=== PATIENT | female | born 1990 | race Caucasian/White ===

== ENCOUNTER 2020-07-23 18:13 | Emergency (ER) | payer MEDICAID ==
[2020-07-23 18:53] VITALS: O2SAT 99
[2020-07-23] MEDS ORDERED: MOTRIN 600 MG PO ONE (19:37)
[2020-07-23] MEDS ORDERED: BACTRIM DS TABLET PO STA (19:37)
--- NOTE | 2020-07-23 19:39 | ERPHSYRPT ---
- History of Present Illness Time Seen by Provider: 07/23/20 19:17 Source: patient Patient Subjective Stated Complaint: abscess Triage Nursing Assessment: pt to ED c/o approx 1 cm abscess to abd just to the R of umbilicus. pt states it was not draining but she was picking it and it began to drain. rates 10/10 pain and very tender to touch. red and warm to touch. pt denies knowing of any bug bites but states it is possible. Physician History: 29 years old female presented in the ER with chief complaint of swelling redness right to umbilicus the last 3 days with progressive worsening in swelling and pain minimal discharge upon squeezing. Denies any fever or chills. Timing/Duration: day(s) (3), gradual onset, worse Quality: itchy, painful Severity: moderate Location: other (Abdominal wall right right low side of umbilicus) Possible Causes: no cause identified Associated Symptoms: denies symptoms Allergies/Adverse Reactions: No Known Drug Allergies Allergy (Unverified 07/23/20 18:53) Hx Tetanus, Diphtheria Vaccination/Date Given: No Hx Influenza Vaccination/Date Given: No Hx Pneumococcal Vaccination/Date Given: No Immunizations Up to Date: No Travel Risk - International Travel Have you traveled outside of the country in past 3 weeks: No - Coronavirus Screening Are you exhibiting any of the following symptoms?: No Close contact with a COVID-19 positive Pt in past 14-21 Days: No - Review of Systems Constitutional: No Symptoms Eyes: No Symptoms Ears, Nose, & Throat: No Symptoms Respiratory: No Symptoms Cardiac: No Symptoms Abdominal/Gastrointestinal: No Symptoms Genitourinary Symptoms: No Symptoms Musculoskeletal: No Symptoms Skin: Induration, Rash, Skin Lesions Neurological: No Symptoms Psychological: No Symptoms Endocrine: No Symptoms Hematologic/Lymphatic: No Symptoms Immunological/Allergic: No Symptoms - Past Medical History Pertinent Past Medical History: Yes Psycho-Social History: Anxiety, Bipolar, Depression, Other Other Medical History: mulitpersonality disorder - Past Surgical History Past Surgical History: No - Social History Smoking Status: Former smoker Exposure to second hand smoke: No Drug Use: none Patient Lives Alone: No - Female History Hx Now: No - Nursing Vital Signs Nursing Vital Signs: Initial Vital Signs Temperature 98.5 F 07/23/20 18:45 Pulse Rate 98 H 07/23/20 18:45 Respiratory Rate 17 07/23/20 18:45 Blood Pressure 127/90 07/23/20 18:45 O2 Sat by Pulse Oximetry 99 07/23/20 18:45 Pain Scale Pain Intensity 4 - Physical Exam General Appearance: no apparent distress Eye Exam: eyes nml inspection Ears, Nose, Throat Exam: pharynx normal Neck Exam: supple, full range of motion Respiratory Exam: normal breath sounds, lungs clear Cardiovascular Exam: regular rate/rhythm, normal heart sounds Gastrointestinal/Abdomen Exam: soft, normal bowel sounds, tenderness (Tenderness around right lower umbilical area with induration 2 x 2 cm with central punctum but no fluctuation. Warm to touch.) Extremity Exam: normal inspection Neurologic Exam: alert, oriented x 3, cooperative Skin Exam: normal color SpO2 Interpretation: normal SpO2: 99 O2 Delivery: Room Air Ordered Tests: Medication Summary Discontinued Medications Generic Name Dose Route Start Last Admin Trade Name Freq PRN Reason Stop Dose Admin Ibuprofen 600 mg 07/23/20 19:37 07/23/20 19:44 Motrin 600 Mg PO 07/23/20 19:38 600 mg STAT ONE Administration Ibuprofen Confirm 07/23/20 19:42 Motrin 600 Mg Administered 07/23/20 19:43 Dose 600 mg .ROUTE .STK-MED ONE Trimethoprim/Sulfamethoxazole 1 tab 07/23/20 19:37 07/23/20 19:43 Bactrim Ds Tablet PO 07/23/20 19:38 1 tab STAT STA Administration Trimethoprim/Sulfamethoxazole Confirm 07/23/20 19:42 Bactrim Ds Tablet Administered 07/23/20 19:43 Dose 1 tab PO .STK-MED ONE - Progress Progress: unchanged Progress Note: 07/23/20 believe patient is developing cellulitis abscess of anterior abdominal wall with no fluctuation at present, do not think needs I&D. Will start on Bactrim and NSAIDs for pain as needed. Outpatient follow-up. Counseled pt/family regarding: diagnosis, need for follow-up - Departure Departure Disposition: Home Clinical Impression: Abdominal wall abscess Condition: Stable Critical Care Time: No Referrals: DOCTOR,NO FAMILY [Primary Care Provider] - RAMIRO CLIFTON DO [ACTIVE STAFF] - Follow Up with PCP/3 days Instructions: MRSA (DC), Wound Infection Additional Instructions: Use Tylenol/ibuprofen as needed for pain. Apply warm compresses. Continue with antibiotics. Follow-up with primary care physician for reevaluation. Return to ER for increasing pain swelling redness discharge or if develop fever or chills. Prescriptions: Ibuprofen 600 mg PO Q6HPRN PRN 10 Days #20 tablet PRN Reason: Pain Smz/Tmp Ds Tablet [Bactrim Ds Tablet] 1 udtab PO BID #14 tablet
[2020-07-23] MEDS ORDERED: MOTRIN 600 MG ONE (19:42)
[2020-07-23] MEDS ORDERED: BACTRIM DS TABLET PO ONE (19:42)
[2020-07-23 19:53] VITALS: BP 112/81; PULSE 82
== END 2020-07-23 19:54 | disposition home or self-care (01) ==
LOC: ED 18:13
DX: L02.211 Cutaneous abscess of abdominal wall (principal)
CPT/HCPCS: 99283; A9270-GY

== ENCOUNTER 2020-09-24 04:04 | Emergency (ER) | payer MEDICAID, OTHER ==
[2020-09-24 04:28] LABS: Appearance SLIGHTLY CLOUDY (CLEAR); Bilirubin NEGATIVE (NEGATIVE); Blood NEGATIVE Ery/ul (0-5); Epithelial Cells RARE /HPF (FEW); Glucose NEGATIVE (NEGATIVE); Ketones NEGATIVE (NEGATIVE); Leukocyte Esterase SMALL (NEGATIVE); Mucus SLIGHT /HPF (NEGATIVE); Nitrite NEGATIVE (NEGATIVE); Protein,Urine Dip NEGATIVE (Negative); Urobilinogen NEGATIVE mg/dL (0-1); WBC 0-2 /HPF (0-5)
[2020-09-24] MEDS ORDERED: KEFLEX 500 MG ONE (04:43)
--- NOTE | 2020-09-24 04:44 | ERPHSYRPT ---
- History of Present Illness Time Seen by Provider: 09/24/20 04:20 Source: patient Exam Limitations: no limitations Patient Subjective Stated Complaint: pt states "I began to have rt lower back pain." Triage Nursing Assessment: pt ambulated into the er; pt is axo x3; c/o rt flank pain; states 7/10 pain to rt flank pain; hyperactive bowel sounds in all quads; no tenderness present to abd; tenderness with palpation; urine cloudy and straw color; pt states that pain started last night and did not want to wait for the doctor today; clear lung sounds in all lobes; clear heart tones; vitals wnl; pt states that she wants a work note because she has to be at work at 5 Physician History: This is a 29-year-old white female who complains of 1 day history of flank pain with dysuria. She denies fever she denies nausea vomiting diarrhea. Her symptoms are similar to prior urinary tract infections that she has had in the past. Timing/Duration: yesterday Activites at Onset: none Quality: aching Onset Location: right flank Pain Radiation: right flank Severity of Pain-Max: mild Severity of Pain-Current: mild Sexual intercourse history: non-contributory Modifying Factors: Improves With: nothing Associated Symptoms: dysuria Allergies/Adverse Reactions: No Known Drug Allergies Allergy (Unverified 07/23/20 18:53) Hx Tetanus, Diphtheria Vaccination/Date Given: Yes Hx Influenza Vaccination/Date Given: No Hx Pneumococcal Vaccination/Date Given: No Travel Risk - International Travel Have you traveled outside of the country in past 3 weeks: No - Coronavirus Screening Are you exhibiting any of the following symptoms?: No Close contact with a COVID-19 positive Pt in past 14-21 Days: No - Review of Systems Constitutional: No Symptoms Eyes: No Symptoms Ears, Nose, & Throat: No Symptoms Respiratory: No Symptoms Cardiac: No Symptoms Abdominal/Gastrointestinal: No Symptoms Genitourinary Symptoms: Dysuria, Flank Pain Musculoskeletal: No Symptoms Skin: No Symptoms Neurological: No Symptoms Psychological: No Symptoms Endocrine: No Symptoms Hematologic/Lymphatic: No Symptoms Immunological/Allergic: No Symptoms All Other Systems: Reviewed and Negative - Past Medical History Pertinent Past Medical History: Yes Neurological History: No Pertinent History ENT History: No Pertinent History Cardiac History: No Pertinent History Respiratory History: No Pertinent History Endocrine Medical History: No Pertinent History Musculoskeletal History: No Pertinent History GI Medical History: No Pertinent History History: No Pertinent History Psycho-Social History: Anxiety, Bipolar, Depression, Other Other Medical History: mulitpersonality disorder - Past Surgical History Past Surgical History: No Neuro Surgical History: No Pertinent History Cardiac: No Pertinent History Respiratory: No Pertinent History Gastrointestinal: No Pertinent History Genitourinary: No Pertinent History Musculoskeletal: No Pertinent History Female Surgical History: No Pertinent History - Social History Smoking Status: Former smoker Exposure to second hand smoke: No Drug Use: none Patient Lives Alone: No - Female History Hx Last Menstrual Period: 08/29/20 Hx Now: No - Nursing Vital Signs Nursing Vital Signs: Initial Vital Signs Temperature 98.9 F 09/24/20 04:10 Pulse Rate 97 H 09/24/20 04:10 Respiratory Rate 14 09/24/20 04:10 Blood Pressure 128/80 09/24/20 04:10 O2 Sat by Pulse Oximetry 98 09/24/20 04:10 Pain Scale Pain Intensity 7 - Physical Exam General Appearance: no apparent distress, alert, anxiety Eye Exam: PERRL/EOMI, eyes nml inspection Ears, Nose, Throat Exam: normal ENT inspection, moist mucous membranes Neck Exam: normal inspection, non-tender, supple, full range of motion Respiratory Exam: airway intact, No chest tenderness, No respiratory distress Cardiovascular Exam: regular rate/rhythm, normal heart sounds, normal peripheral pulses Gastrointestinal/Abdomen Exam: soft, normal bowel sounds, No tenderness Pelvic Exam: not done Rectal Exam: not done Back Exam: normal inspection, normal range of motion, CVA tenderness (Right), No vertebral tenderness Extremity Exam: normal inspection, normal range of motion, pelvis stable Neurologic Exam: alert, oriented x 3, cooperative, intravenous therapy nurse II-XII nml as tested, normal mood/affect, nml cerebellar function, nml station & gait, sensation nml Skin Exam: normal color, warm, dry Lymphatic Exam: No adenopathy SpO2 Interpretation: normal SpO2: 98 O2 Delivery: Room Air - Course Nursing assessment & vital signs reviewed: Yes Ordered Tests: Active Orders 24 hr Category Date Time Status HCG,QUALITATIVE URINE Stat Lab 09/24/20 04:18 Completed UA W/RFX UR CULTURE Stat Lab 09/24/20 04:18 Completed Lab/Rad Data: Laboratory Results 09/24/20 09/24/20 Range/Units 04:18 04:18 Urine Color YELLOW (YELLOW) Urine Appearance SLIGHTLY CLOUDY (CLEAR) Urine pH 6.0 (5-6) Ur Specific [place] 1.020 (1.005-1.025) Urine Protein NEGATIVE (Negative) Urine Ketones NEGATIVE (NEGATIVE) Urine Blood NEGATIVE (0-5) Sammy/ul Urine Nitrite NEGATIVE (NEGATIVE) Urine Bilirubin NEGATIVE (NEGATIVE) Urine Urobilinogen NEGATIVE (0-1) mg/dL Ur Leukocyte Esterase SMALL (NEGATIVE) Urine WBC (Auto) 0-2 (0-5) /HPF Urine RBC (Auto) NONE (0-2) /HPF U Epithel Cells (Auto) RARE (FEW) /HPF Urine Bacteria (Auto) NONE (NEGATIVE) /HPF Urine Mucus (Auto) SLIGHT (NEGATIVE) /HPF Urine Culture Reflexed NO (NO) Urine Glucose NEGATIVE (NEGATIVE) mg/dL Urine HCG, Qual NEGATIVE (Negative) - Progress Progress: unchanged Air Movement: good Counseled pt/family regarding: lab results, diagnosis, need for follow-up - Departure Departure Disposition: Home Clinical Impression: UTI (urinary tract infection) Condition: Stable Critical Care Time: No Referrals: DOCTOR,NO FAMILY [Primary Care Provider] - Additional Instructions: Drink plenty of fluids. Use Tylenol and ibuprofen for pain control. Follow-up with your primary care physician for persistent symptoms. Forms: Work/School Release Form Prescriptions: Cephalexin Mh 500 mg [Keflex 500 mg] 500 mg PO TID #21 capsule Phenazopyridine HCl 200 mg [Pyridium 200 mg] 200 mg PO TID #6 tablet
[2020-09-24] MEDS ORDERED: KEFLEX 500 MG PO ONE (04:45)
[2020-09-24 04:54] VITALS: BP 120/78; PULSE 88; O2SAT 99
== END 2020-09-24 04:54 | disposition home or self-care (01) ==
LOC: ED 04:04
DX: N39.0 Urinary tract infection, site not specified (principal)
CPT/HCPCS: 81001; 84703; 99283; A9270-GY

== ENCOUNTER 2021-12-26 15:04 | Emergency (ER) | payer OTHER ==
--- NOTE | 2021-12-26 16:04 | ERPHSYRPT ---
- History of Present Illness Time Seen by Provider: 12/26/21 15:30 Source: patient Exam Limitations: no limitations Patient Subjective Stated Complaint: Pt states "I have pain on the top of my right foot and I was walking down the stairs and my right leg gave out and I twi sted my left ankle and it hurts." Triage Nursing Assessment: Pt presented alert and oriented X 3, skin pwd Pt ambulates with an upright steady gait, able to speak in clear full sentences pt in no apprent respiratory distress. no swelling or bruising noted. Physician History: Patient is a 31-year-old female presents to emergency department for evaluation of right foot and left ankle pain. No blunt trauma. Patient states that her right foot hurt likely due to prolonged dorsiflexion while planting salmon. Patient was descending a flight of stairs when her left ankle inverted. Pain described as an ache that is localized. No radiation. Pain worse with movement and palpation. Pain improved with rest. No other injuries reported. Symptoms are mild to moderate in intensity. Patient voices no other complaints or concerns at this time. Method of Injury: twisted Occurred: yesterday Quality: constant Severity of Pain-Max: moderate Severity of Pain-Current: mild Lower Extremities Pain: foot: right, ankle: left Modifying Factors: Improves With: movement Associated Symptoms: none Allergies/Adverse Reactions: No Known Drug Allergies Allergy (Verified 12/26/21 15:19) Home Medications: Quetiapine Fumarate 100 mg [Seroquel 100 MG] 100 mg PO DAILY 12/26/21 [History] Sertraline HCl 50 mg [Zoloft 50 mg Tablet] 50 mg PO DAILY 12/26/21 [History] Hx Tetanus, Diphtheria Vaccination/Date Given: Yes Hx Influenza Vaccination/Date Given: No Hx Pneumococcal Vaccination/Date Given: No Immunizations Up to Date: Yes Travel Risk - International Travel Have you traveled outside of the country in past 3 weeks: No - Coronavirus Screening Are you exhibiting any of the following symptoms?: No Close contact with a COVID-19 positive Pt in past 14-21 Days: No - Vaccine Status Have you recieved a Covid-19 vaccination: Yes Spray Gun Sizer: Unknown - Vaccination Dates Dates if Unknown: 12/2020 - Review of Systems Constitutional: No Symptoms, No Fever, No Chills Eyes: No Symptoms Ears, Nose, & Throat: No Symptoms Respiratory: No Symptoms, No Cough, No Dyspnea Cardiac: No Symptoms, No Chest Pain, No Edema, No Syncope Abdominal/Gastrointestinal: No Symptoms, No Abdominal Pain, No Nausea, No Vomiting, No Diarrhea Genitourinary Symptoms: No Symptoms, No Dysuria Musculoskeletal: No Symptoms, No Back Pain, No Neck Pain Skin: No Symptoms, No Rash Neurological: No Symptoms, No Dizziness, No Focal Weakness, No Sensory Changes Psychological: No Symptoms Endocrine: No Symptoms Hematologic/Lymphatic: No Symptoms Immunological/Allergic: No Symptoms All Other Systems: Reviewed and Negative - Past Medical History Pertinent Past Medical History: Yes Neurological History: No Pertinent History ENT History: No Pertinent History Cardiac History: No Pertinent History Respiratory History: No Pertinent History Endocrine Medical History: No Pertinent History Musculoskeletal History: No Pertinent History GI Medical History: No Pertinent History History: No Pertinent History Psycho-Social History: Anxiety, Bipolar, Depression, Other Other Medical History: mulitpersonality disorder - Past Surgical History Past Surgical History: No Neuro Surgical History: No Pertinent History Cardiac: No Pertinent History Respiratory: No Pertinent History Gastrointestinal: No Pertinent History Genitourinary: No Pertinent History Musculoskeletal: No Pertinent History Female Surgical History: No Pertinent History - Social History Smoking Status: Current every day smoker How long have you smoked: years Exposure to second hand smoke: Yes Drug Use: none Patient Lives Alone: No - Female History Hx Last Menstrual Period: 12/17/2021 Hx Now: No - Nursing Vital Signs Nursing Vital Signs: Initial Vital Signs Temperature 97.8 F 12/26/21 15:12 Pulse Rate 125 H 12/26/21 15:12 Respiratory Rate 20 12/26/21 15:12 Blood Pressure 133/90 12/26/21 15:12 O2 Sat by Pulse Oximetry 97 12/26/21 15:12 Pain Scale Pain Intensity 7 - Physical Exam General Appearance: alert Eyes, Ears, Nose, Throat Exam: moist mucous membranes Neck Exam: normal inspection, non-tender, supple, full range of motion Cardiovascular/Respiratory Exam: chest non-tender, normal breath sounds, regular rate/rhythm, no respiratory distress Gastrointestinal/Abdominal Exam: non-tender, soft, guarding Back Exam: normal inspection, normal range of motion, No CVA tenderness, No vertebral tenderness Hips Exam: bilateral: non-tender, normal inspection, normal range of motion, no evidence of injury Legs Exam: bilateral leg: non-tender, normal inspection, normal range of motion, no evidence of injury Knees Exam: bilateral knee: non-tender, normal inspection, normal range of motion, no evidence of injury Ankle Exam: right ankle: non-tender, normal inspection, normal range of motion, no evidence of injury, left ankle: swelling (Mild swelling lateral aspect left ankle. Extremities neurovascular intact distally. PT DP pulse palpable. Foot is pink warm well perfused) Foot Exam: right foot: pain, soft tissue tenderness (Tenderness palpation dorsum of right foot. Right foot neurovascular tact distally. Compartments are soft. Cap refill less than 2 seconds. PT DP pulse palpable.), left foot: non- tender, normal inspection, normal range of motion, no evidence of injury Neuro/Tendon Exam: normal sensation, normal motor functions Mental Status Exam: alert, oriented x 3, cooperative Skin Exam: normal color, warm, dry SpO2 Interpretation: normal SpO2: 97 O2 Delivery: Room Air - Course Nursing assessment & vital signs reviewed: Yes - Radiology Exams Foot X-ray Interpretation: Interpreted by me Ankle X-ray Interpretation: Interpreted by me (No soft tissue abnormalities. No fracture or dislocation) Ordered Tests: Active Orders 24 hr Category Date Time Status ANKLE (3 VIEWS) Stat Exams 12/26/21 Taken FOOT (MINIMUM 3 VIEWS) Stat Exams 12/26/21 Taken Medication Summary Discontinued Medications Generic Name Dose Route Start Last Admin Trade Name Freq PRN Reason Stop Dose Admin Ketorolac Tromethamine 30 mg 12/26/21 16:02 Ketorolac Tromethamine 30 Mg/Ml Inj IM 12/26/21 16:03 STAT ONE - Progress Progress: improved Progress Note: Patient reassessed. Pain improved. Vital stable. X-rays negative for fracture dislocation. Patient received Toradol for pain. Patient declined crutches. No indication for further work-up at this time. Will discharge home. Patient agrees to follow-up with primary care doctor within 48 hours for evaluation. Portions of this note were created with voice recognition technology. There may be grammatical, spelling, punctuation or sound alike errors 12/26/21 16:12 Counseled pt/family regarding: diagnosis, need for follow-up, rad results - Departure Departure Disposition: Home Clinical Impression: Left ankle sprain, Right foot sprain Condition: Stable Critical Care Time: No Referrals: TONJA SKY [Primary Care Provider] - Follow up/PCP as directed Additional Instructions: Discharge/Care Plan GOPAL POSADA was seen on 12/26/21 in the Emergency Room. The patient was counseled regarding Diagnosis,Lab results, Imaging studies, need for follow up and when to return to the Emergency Room. Prescriptions given: Discharge Note I have spoken with the patient and/or caregivers. I have explained the patient's condition, diagnosis and treatment plan based on the information available to me at this time. I have answered the patient's and/or caregiver's questions and addressed any concerns. The patient and/or caregivers have as good understanding of the patient's diagnosis, condition and treatment plan as can be expected at this point. The vital signs have been stable. The patient's condition is stable and appropriate for discharge from the emergency department. The patient will pursue further outpatient evaluation with the primary care physician or other designated or consulting physician as outlined in the discharge instructions. The patient and/or caregivers are agreeable to this plan of care and follow-up instructions have been explained in detail. The patient and/or caregivers have received these instruction. The patient/and or caregivers are aware that any significant change in condition or worsening of symptoms should prompt an immediate return to this or the closest emergency department or call 911.
[2021-12-26] MEDS ORDERED: TORAdol 30 mg Injection ONE (16:09)
[2021-12-26] MEDS: TORAdol 30 mg Injection IM ONE (16:14)
--- NOTE | 2021-12-26 16:26 | XRAY ---
Indication: Pain. No known injury. Comparison: None 3 view left ankle demonstrates tiny plantar heel spur, mild lateral soft tissue swelling, and external electronic device. No other bony, articular, or soft tissue abnormalities.
--- NOTE | 2021-12-26 16:28 | XRAY ---
Indication: Pain. No known injury. Comparison: None 3 nonweightbearing views right foot obtained. No bony, articular, or soft tissue abnormalities.
[2021-12-26 16:30] VITALS: BP 139/85; PULSE 65; O2SAT 98
== END 2021-12-26 16:27 | disposition home or self-care (01) ==
LOC: ED 15:04
DX: S93.402A Sprain of unspecified ligament of left ankle, initial encounter (principal); W10.9XXA Fall (on) (from) unspecified stairs and steps, initial encounter; S93.601A Unspecified sprain of right foot, initial encounter; X50.1XXA Overexertion from prolonged static or awkward postures, initial encounter; Y93.H2 Activity, gardening and landscaping; Z72.0 Tobacco use
CPT/HCPCS: 73610; 73630; 96372; 99284; J1885

== ENCOUNTER 2022-08-04 15:02 | Emergency (ER) | payer OTHER ==
[2022-08-04] MEDS ORDERED: XYLOCAINE 1% HCL 20 ML MDV ONE (15:12)
[2022-08-04 15:17] VITALS: O2SAT 98
--- NOTE | 2022-08-04 15:50 | ERPHSYRPT ---
- History of Present Illness Time Seen by Provider: 08/04/22 15:22 Source: patient Exam Limitations: no limitations Patient Subjective Stated Complaint: Laceration Triage Nursing Assessment: Patient ambulated back to ED and transferred self to bed. Patient A+O X 3. Patient's skin pink, warm and dry. Patient complains of laceration to posterior side of left hand. Patient states she got locked out of her home and attempted to get in and broke glass causing a laceration. Patient has 3cm X 1 cm noted to posterior side of left hand. Patient complains of pain 05/09. Physician History: 31 years old left-handed dominant female up-to-date with tetanus was locked out of her own house, tried to get in and broke a piece of glass with laceration left hand dorsum. Patient saw blood gushing out of her hand and got vasovagal and syncopal episode. She denies any focal numbness tingling or weakness. She is complaining of pain in the area of laceration. No difficulty movements of finger. Timing/Duration: hour(s) (05), sudden, improved Quality: painful Severity: mild, moderate Location: hands Associated Symptoms: denies symptoms Allergies/Adverse Reactions: No Known Drug Allergies Allergy (Verified 08/04/22 15:09) Home Medications: Quetiapine Fumarate 100 mg [Seroquel 100 MG] 100 mg PO DAILY 12/26/21 [History] Sertraline HCl 50 mg [Zoloft 50 mg Tablet] 50 mg PO DAILY 12/26/21 [History] Hx Tetanus, Diphtheria Vaccination/Date Given: Yes Hx Influenza Vaccination/Date Given: No Hx Pneumococcal Vaccination/Date Given: No Immunizations Up to Date: Yes Travel Risk - International Travel Have you traveled outside of the country in past 3 weeks: No - Coronavirus Screening Are you exhibiting any of the following symptoms?: No Close contact with a COVID-19 positive Pt in past 14-21 Days: No - Vaccine Status Have you recieved a Covid-19 vaccination: Yes 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 - Vaccination Dates Dates if Unknown: 12/2020 - Review of Systems Constitutional: No Symptoms Eyes: No Symptoms Ears, Nose, & Throat: No Symptoms Respiratory: No Symptoms Cardiac: No Symptoms Abdominal/Gastrointestinal: No Symptoms Genitourinary Symptoms: No Symptoms Musculoskeletal: Injury Skin: Skin Lesions Neurological: No Symptoms Psychological: No Symptoms Endocrine: No Symptoms Hematologic/Lymphatic: No Symptoms Immunological/Allergic: No Symptoms - Past Medical History Pertinent Past Medical History: Yes Neurological History: No Pertinent History ENT History: No Pertinent History Cardiac History: No Pertinent History Respiratory History: No Pertinent History Endocrine Medical History: No Pertinent History Musculoskeletal History: No Pertinent History GI Medical History: No Pertinent History History: No Pertinent History Psycho-Social History: Anxiety, Bipolar, Depression, Other Other Medical History: mulitpersonality disorder - Past Surgical History Past Surgical History: No Neuro Surgical History: No Pertinent History Cardiac: No Pertinent History Respiratory: No Pertinent History Gastrointestinal: No Pertinent History Genitourinary: No Pertinent History Musculoskeletal: No Pertinent History Female Surgical History: No Pertinent History - Social History Smoking Status: Current every day smoker How long have you smoked: years Exposure to second hand smoke: Yes Drug Use: none Patient Lives Alone: No - Female History Hx Last Menstrual Period: July Hx Now: No - Nursing Vital Signs Nursing Vital Signs: Initial Vital Signs Temperature 98.0 F 08/04/22 15:10 Pulse Rate 127 H 08/04/22 15:10 Respiratory Rate 18 08/04/22 15:10 Blood Pressure 132/106 08/04/22 15:10 O2 Sat by Pulse Oximetry 98 08/04/22 15:10 Pain Scale Pain Intensity 0 - Physical Exam General Appearance: no apparent distress, alert Eye Exam: PERRL/EOMI, eyes nml inspection Ears, Nose, Throat Exam: normal ENT inspection, pharynx normal Neck Exam: normal inspection, supple, full range of motion Respiratory Exam: normal breath sounds, lungs clear Cardiovascular Exam: normal heart sounds, tachycardia Extremity Exam: lacerations (Superficial laceration of the dorsum of hand measuring 2.5 cm, 1 cm with no active spurting, minimal oozing from a big laceration. 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, normal mood/affect Skin Exam: normal color SpO2 Interpretation: normal SpO2: 98 O2 Delivery: Room Air Procedures - Laceration/Wound Repair Left Hand Time of Procedure: 15:30 Wound Location: Left Wound Length (cm): 3.5 Wound's Depth, Shape: superficial, irregular Wound Explored: clean Irrigated: Yes Hibiclens Prep: Yes Anesthesia: 1% Lidocaine Volume Anesthetic (ccs): 2 Wound Repaired With: sutures Suture Size/Type: 4-0 Number of Sutures: 9 Layer Closure?: No Sterile Dressing Applied?: Yes Splint Applied?: No Ordered Tests: Medication Summary Discontinued Medications Generic Name Dose Route Start Last Admin Trade Name Lu PRN Reason Stop Dose Admin Lidocaine HCl Confirm 08/04/22 15:12 Lidocaine Hcl 1% 20 Ml Mdv 20 Ml Ml Administered 08/04/22 15:13 Dose 1 ml .ROUTE .P2i ONE - Progress Progress: improved Progress Note: 08/04/22 15:48 Laceration is repaired. Recommended avoiding exertional work. Outpatient follow-up. Counseled pt/family regarding: diagnosis, need for follow-up - Departure Departure Disposition: Home Clinical Impression: Hand laceration Condition: Stable Critical Care Time: No Referrals: TONJA SKY [Primary Care Provider] - Follow Up with PCP/3 days Instructions: Laceration Repair With Stitches (DC) Additional Instructions: Take Tylenol/ibuprofen as needed for pain. Avoid exertional activity with left hand. Keep it clean. Follow-up with primary care for reevaluation. Suture removal in 10 to 14 days. Return to ER for worsening pain, difficulty movements of fingers, swelling, redness, discharge, fever chills etc.
[2022-08-04 15:55] VITALS: BP 133/103; PULSE 110
== END 2022-08-04 15:57 | disposition home or self-care (01) ==
LOC: ED 15:02
DX: S61.412A Laceration without foreign body of left hand, initial encounter (principal); W25.XXXA Contact with sharp glass, initial encounter; Y92.007 Garden or yard of unspecified non-institutional (private) residence as the place of occurrence of the external cause; R55 Syncope and collapse; Z72.0 Tobacco use; Z79.899 Other long term (current) drug therapy
CPT/HCPCS: 12002; 99281

== ENCOUNTER 2023-03-09 00:29 | Emergency (ER) | payer OTHER ==
--- NOTE | 2023-03-09 00:53 | ERPHSYRPT ---
- History of Present Illness Time Seen by Provider: 03/09/23 00:53 Source: patient Exam Limitations: no limitations Physician History: This is a 32-year-old white female patient who is on house arrest and complains of bilateral earaches with crusty drainage present intermittently over the last few days. Patient did use hydrogen peroxide liquid into each ears at 8 PM on the evening of 03/08/2023. She has achiness present. She has not had any fevers or cough or flulike symptoms. Patient is a daily smoker of cigarettes. Patient has a history of anxiety disorder, bipolar disorder, and multi personality disorder. She denies chest pain and she denies shortness of breath. She has no abdominal pain Timing/Duration: day(s) (A few days) Severity: mild (To moderate) Associated Symptoms: denies symptoms Allergies/Adverse Reactions: No Known Drug Allergies Allergy (Verified 03/09/23 00:55) Home Medications: Quetiapine Fumarate 100 mg [Seroquel 100 MG] 100 mg PO DAILY 12/26/21 [History] Sertraline HCl 50 mg [Zoloft 50 mg Tablet] 50 mg PO DAILY 12/26/21 [History] Hx Tetanus, Diphtheria Vaccination/Date Given: Yes Hx Influenza Vaccination/Date Given: No Hx Pneumococcal Vaccination/Date Given: No Travel Risk - International Travel Have you traveled outside of the country in past 3 weeks: No - Coronavirus Screening Are you exhibiting any of the following symptoms?: No Close contact with a COVID-19 positive Pt in past 14-21 Days: No - Vaccine Status Have you recieved a Covid-19 vaccination: Yes 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 - Vaccination Dates Dates if Unknown: 12/2020 - Review of Systems Constitutional: No Symptoms Eyes: No Symptoms Ears, Nose, & Throat: Ear Pain (Lateral), Ear Discharge (Bilateral) Respiratory: No Symptoms Cardiac: No Symptoms Abdominal/Gastrointestinal: No Symptoms Genitourinary Symptoms: No Symptoms Musculoskeletal: No Symptoms Skin: No Symptoms Neurological: No Symptoms Psychological: No Symptoms Endocrine: No Symptoms Hematologic/Lymphatic: No Symptoms Immunological/Allergic: No Symptoms All Other Systems: Reviewed and Negative - Past Medical History Pertinent Past Medical History: Yes Neurological History: No Pertinent History ENT History: No Pertinent History Cardiac History: No Pertinent History Respiratory History: No Pertinent History Endocrine Medical History: No Pertinent History Musculoskeletal History: No Pertinent History GI Medical History: No Pertinent History History: No Pertinent History Psycho-Social History: Anxiety, Bipolar, Depression, Other Other Medical History: mulitpersonality disorder - Past Surgical History Past Surgical History: No Neuro Surgical History: No Pertinent History Cardiac: No Pertinent History Respiratory: No Pertinent History Gastrointestinal: No Pertinent History Genitourinary: No Pertinent History Musculoskeletal: No Pertinent History Female Surgical History: No Pertinent History - Social History Smoking Status: Current every day smoker How long have you smoked: years Exposure to second hand smoke: Yes Drug Use: none Patient Lives Alone: No - Nursing Vital Signs Nursing Vital Signs: Initial Vital Signs Temperature 97.3 F 03/09/23 00:56 Pulse Rate 93 H 03/09/23 00:56 Respiratory Rate 20 03/09/23 00:56 Blood Pressure 154/108 03/09/23 00:56 O2 Sat by Pulse Oximetry 95 03/09/23 00:56 Pain Scale Pain Intensity 3 - Physical Exam General Appearance: no apparent distress, alert, anxiety Eye Exam: PERRL/EOMI, eyes nml inspection Ears, Nose, Throat Exam: pharynx normal, moist mucous membranes, TM abnormal (R), TM abnormal (L), other (Bilateral ear canal with redness and fibrinous exudate left greater than right) Neck Exam: normal inspection, non-tender, supple, full range of motion Respiratory Exam: normal breath sounds, lungs clear, airway intact, No chest tenderness, No respiratory distress Cardiovascular Exam: regular rate/rhythm, normal heart sounds, normal peripheral pulses Gastrointestinal/Abdomen Exam: No tenderness Pelvic Exam: not done Rectal Exam: not done Back Exam: normal inspection, normal range of motion, No CVA tenderness, No vertebral tenderness Extremity Exam: normal inspection, normal range of motion, pelvis stable Neurologic Exam: alert, oriented x 3, 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, 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, normal mood/affect, nml cerebellar function, nml station & gait, sensation nml Skin Exam: normal color, warm, dry Lymphatic Exam: No adenopathy SpO2 Interpretation: normal O2 Delivery: Room Air - Course Nursing assessment & vital signs reviewed: Yes Ordered Tests: Medication Summary Discontinued Medications Generic Name Dose Route Start Last Admin Trade Name Freq PRN Reason Stop Dose Admin Azithromycin 500 mg 03/09/23 01:23 06/10/23 01:30 Azithromycin 250 Mg Tablet PO 03/09/23 01:24 500 mg STAT ONE Administration Azithromycin Confirm 03/09/23 01:29 Azithromycin 250 Mg Tablet Administered 03/09/23 01:30 Dose 500 mg .ROUTE .STK-MED ONE Prednisone 20 mg 03/09/23 01:23 03/09/23 01:30 Prednisone 20 Mg Tablet PO 03/09/23 01:24 20 mg STAT ONE Administration Prednisone Confirm 03/09/23 01:29 Prednisone 20 Mg Tablet Administered 03/09/23 01:30 Dose 20 mg .ROUTE .STK-MED ONE - Progress Progress: unchanged Counseled pt/family regarding: diagnosis, need for follow-up Medical Desision Making - Diagnostic Testing Diagnostic test were ordered, analyzed, and reviewed by me: No - Risk of complications The pt has a mod risk of morbidity or mortality based on: Need for prescription drug management - Departure Departure Disposition: Home Clinical Impression: Bilateral otitis media Condition: Stable Critical Care Time: No Referrals: TONJA SKY [Primary Care Provider] - Follow up/PCP as directed Additional Instructions: Take your antibiotics and steroids as prescribed. May use Tylenol and ibuprofen for pain control if there are no contraindications. Follow-up with your primary prescribing provider for further evaluation management Prescriptions: Prednisone 10 mg [Deltasone 10 mg] 10 mg PO TID #12 tablet Azithromycin 250 mg [Zithromax 250 MG TABLET] 250 mg PO ZPACK #6 tablet
[2023-03-09] MEDS ORDERED: DELTASONE 20 MG PO ONE (01:23)
[2023-03-09] MEDS ORDERED: Zithromax 250 MG TABLET PO ONE (01:23)
[2023-03-09] MEDS ORDERED: DELTASONE 20 MG ONE (01:29)
[2023-03-09] MEDS ORDERED: Zithromax 250 MG TABLET ONE (01:29)
[2023-03-09 01:56] VITALS: BP 141/109
[2023-03-09 04:58] VITALS: PULSE 96; O2SAT 96
== END 2023-03-09 03:25 | disposition home or self-care (01) ==
LOC: ED 00:29
DX: H66.93 Otitis media, unspecified, bilateral (principal); H92.03 Otalgia, bilateral; Z79.52 Long term (current) use of systemic steroids; Z79.899 Other long term (current) drug therapy; Z72.0 Tobacco use
CPT/HCPCS: 99282; A9270-GY

== ENCOUNTER 2023-06-19 00:16 | Emergency (ER) | payer OTHER ==
[2023-06-19] MEDS ORDERED: CORTISPORIN EAR DROPS 10 ML SUSPENSION OT ONE (00:30)
[2023-06-19] MEDS ORDERED: CORTISPORIN EAR DROPS Solution 1OML OT ONE (00:39)
--- NOTE | 2023-06-19 00:39 | ERPHSYRPT ---
- History of Present Illness Time Seen by Provider: 06/19/23 00:34 Source: patient Exam Limitations: no limitations Physician History: 32-year-old female presents to our ED for evaluation of right ear pain started 2 days ago. Patient states pain is worse when she uses earbuds and working. Pain tends to radiate down her jaw. No associated chest pain or shortness of breath. No nausea vomiting or diaphoresis. Patient observed purulent drainage today. No fever. No difficulty hearing. No dizziness. Symptoms are constant symptoms are moderate in intensity. Pain worse with manipulation of the external ear. Patient otherwise voices no complaints at this time. Portions of this note were created with voice recognition technology. There may be grammatical, spelling, punctuation or sound alike errors Timing/Duration: gradual onset Severity: moderate ENT Location: ear (R) Prearrival Treatment: no prearrival treatment Modifying Factors: Improves With: nothing, other (Pain worse with manipulation of the right ear.) Associated Symptoms: denies symptoms Allergies/Adverse Reactions: No Known Drug Allergies Allergy (Verified 06/19/23 00:24) Home Medications: Quetiapine Fumarate 100 mg [Seroquel 100 MG] 100 mg PO HS 12/26/21 [History] Sertraline HCl 50 mg [Zoloft 50 mg Tablet] 50 mg PO HS 12/26/21 [History] Hx Tetanus, Diphtheria Vaccination/Date Given: Yes Hx Influenza Vaccination/Date Given: No Hx Pneumococcal Vaccination/Date Given: No Travel Risk - Vaccine Status Have you recieved a Covid-19 vaccination: Yes 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 - Vaccination Dates Dates if Unknown: 12/2020 - Review of Systems Constitutional: No Symptoms, No Fever, No Chills Eyes: No Symptoms Ears, Nose, & Throat: No Symptoms Respiratory: No Symptoms, No Cough, No Dyspnea Cardiac: No Symptoms, No Chest Pain, No Edema, No Syncope Abdominal/Gastrointestinal: No Symptoms, No Abdominal Pain, No Nausea, No Vomiting, No Diarrhea Genitourinary Symptoms: No Symptoms, No Dysuria Musculoskeletal: No Symptoms, No Back Pain, No Neck Pain Skin: No Symptoms, No Rash Neurological: No Symptoms, No Dizziness, No Focal Weakness, No Sensory Changes Psychological: No Symptoms Endocrine: No Symptoms Hematologic/Lymphatic: No Symptoms Immunological/Allergic: No Symptoms All Other Systems: Reviewed and Negative - Past Medical History Pertinent Past Medical History: Yes Neurological History: No Pertinent History ENT History: No Pertinent History Cardiac History: No Pertinent History Respiratory History: No Pertinent History Endocrine Medical History: No Pertinent History Musculoskeletal History: No Pertinent History GI Medical History: No Pertinent History History: No Pertinent History Psycho-Social History: Anxiety, Bipolar, Depression, Other Female Reproductive Disorders: No Pertinent History Other Medical History: mulitpersonality disorder - Past Surgical History Past Surgical History: No Neuro Surgical History: No Pertinent History Cardiac: No Pertinent History Respiratory: No Pertinent History Gastrointestinal: No Pertinent History Genitourinary: No Pertinent History Musculoskeletal: No Pertinent History Female Surgical History: No Pertinent History - Social History Smoking Status: Current every day smoker How long have you smoked: years Exposure to second hand smoke: Yes Drug Use: none Patient Lives Alone: No - Nursing Vital Signs Nursing Vital Signs: Initial Vital Signs Temperature 97.6 F 06/19/23 00:26 Pulse Rate 107 H 06/19/23 00:26 Respiratory Rate 20 06/19/23 00:26 Blood Pressure 153/111 06/19/23 00:26 O2 Sat by Pulse Oximetry 99 06/19/23 00:26 Pain Scale Pain Intensity 0 - Physical Exam General Appearance: no apparent distress, alert Eye Exam: bilateral eye: normal inspection, PERRL, EOMI Ear Exam: right ear: discharge, swelling, tenderness, other, left ear: auricle normal, canal normal, TM normal Nasal Exam: normal inspection Throat Exam: normal, pharynx normal, moist mucus membranes, No tonsillar exudate Neck Exam: normal inspection, non-tender, supple Cardiovascular/Respiratory Exam: normal breath sounds, regular rate/rhythm Abdominal Exam: non-tender, soft, no organomegaly Neurologic Exam: alert, oriented x 3, sensation nml, No motor deficits Skin Exam: normal color, warm, dry SpO2 Interpretation: normal SpO2: 98 O2 Delivery: Room Air - Course Nursing assessment & vital signs reviewed: Yes Ordered Tests: Medication Summary Discontinued Medications Generic Name Dose Route Start Last Admin Trade Name Freq PRN Reason Stop Dose Admin Neomycin/Polymyxin/Hydrocortisone Confirm 06/19/23 00:30 Neomy Sulf/Polymyx B Sulf/Hc 10 Ml Otic Suspension Administered 06/19/23 00:31 Dose 10 ml OT .STK-MED ONE Neomycin/Polymyxin/Hydrocortisone 10 ml 06/19/23 00:39 Neomy Sulf/Polymyx B Sulf/Hc 10 Ml Otic Solution OT 06/19/23 00:40 STAT ONE Neomycin/Polymyxin/Hydrocortisone 1 ml 06/19/23 00:46 Neomy Sulf/Polymyx B Sulf/Hc 7.5 Ml Bottle OP 06/19/23 00:47 STAT ONE - Progress Progress: improved Progress Note: 32-year-old female presents to our ED with right ear pain. Diagnosis is right otitis externa. Patient receives Cortisporin in our ED. Patient was sent home with a bottle. No indication for antibiotics. There is enough to last her for a week. Administration instructions provided. No indication for further work- up. Will discharge home. Patient agrees to follow-up with her primary care doctor within 48 hours for reevaluation. Portions of this note were created with voice recognition technology. There may be grammatical, spelling, punctuation or sound alike errors Complexity of problem addressed today is low acute uncomplicated Complex of data reviewed and analyzed is none. No specialized testing ordered. Diagnosis made based on history and physical exam. Risk of complication or risk morbidity/mortality patient management is moderate. We dispensed patient's prescription medication from our ED. Vital stable. Time spent to discharge patient approximately 15 minutes. No social determinants of health present. Follow-up. Plan of care established for shared decision making. Portions of this note were created with voice recognition technology. There may be grammatical, spelling, punctuation or sound alike errors 06/19/23 00:46 Counseled pt/family regarding: diagnosis, need for follow-up - Departure Departure Disposition: Home Clinical Impression: Otitis externa Condition: Stable Critical Care Time: No Referrals: TONJA SKY [Primary Care Provider] - Follow up/PCP as directed Additional Instructions: Discharge/Care Plan GOPAL RUIZ was seen on 06/19/23 in the Emergency Room. The patient was counseled regarding Diagnosis,Lab results, Imaging studies, need for follow up and when to return to the Emergency Room. Prescriptions given: Discharge Note I have spoken with the patient and/or caregivers. I have explained the patient's condition, diagnosis and treatment plan based on the information available to me at this time. I have answered the patient's and/or caregiver's questions and addressed any concerns. The patient and/or caregivers have as good understanding of the patient's diagnosis, condition and treatment plan as can be expected at this point. The vital signs have been stable. The patient's condition is stable and appropriate for discharge from the emergency department. The patient will pursue further outpatient evaluation with the primary care physician or other designated or consulting physician as outlined in the discharge instructions. The patient and/or caregivers are agreeable to this plan of care and follow-up instructions have been explained in detail. The patient and/or caregivers have received these instruction. The patient/and or caregivers are aware that any significant change in condition or worsening of symptoms should prompt an immediate return to this or the closest emergency department or call 911.
[2023-06-19 00:42] VITALS: RESP 20; TEMP 97.6
[2023-06-19] MEDS ORDERED: Cortisporin Eye Drops OP ONE (00:46)
[2023-06-19 00:51] VITALS: BP 136/98; PULSE 104
[2023-06-19 00:52] VITALS: O2SAT 98
== END 2023-06-19 01:11 | disposition home or self-care (01) ==
LOC: ED 00:16
DX: H60.91 Unspecified otitis externa, right ear (principal); H92.01 Otalgia, right ear; Z79.899 Other long term (current) drug therapy; Z72.0 Tobacco use
CPT/HCPCS: 99281; A9270-GY

== ENCOUNTER 2023-09-02 22:34 | Emergency (ER) | payer OTHER ==
--- NOTE | 2023-09-02 22:40 | ERPHSYRPT ---
- History of Present Illness Time Seen by Provider: 09/02/23 22:40 Source: patient Exam Limitations: no limitations Physician History: This is a 32-year-old white female patient who has no known drug allergies and prior to arrival was sweeping with mop at work when she went to shake out the mop something flew into the right eye that felt as though it was cutting or stabbing her right eye. She rinsed out her right eye several times with an redness reliever and lubricant eyedrops. She states at least 15 times. Patient states that the sensation of foreign body is in the 12 o'clock position of the right eye. Patient is legally blind in her left eye and was having difficulty seeing out of her right eye. Patient has a history of anxiety, bipolar disorder and multiple personality disorder. Timing/Duration: today Location: right eye Severity: mild (To moderate) Apparent Injury: possibly Associated Symptoms: burning, sensitivity to light, redness, decreased vision Visual Assistive Devices: Glasses Chemical Exposure: No Trauma: Yes (? Foreign body) Allergies/Adverse Reactions: No Known Drug Allergies Allergy (Verified 06/19/23 00:24) Home Medications: Quetiapine Fumarate 100 mg [Seroquel 100 MG] 100 mg PO HS 12/26/21 [History] Sertraline HCl 50 mg [Zoloft 50 mg Tablet] 50 mg PO HS 12/26/21 [History] Hx Tetanus, Diphtheria Vaccination/Date Given: Yes Hx Influenza Vaccination/Date Given: No Hx Pneumococcal Vaccination/Date Given: No Travel Risk - International Travel Have you traveled outside of the country in past 3 weeks: No - Coronavirus Screening Are you exhibiting any of the following symptoms?: No Close contact with a COVID-19 positive Pt in past 14-21 Days: No - Vaccine Status Have you recieved a Covid-19 vaccination: Yes Sales Marketing 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: Unknown - Vaccination Dates Dates if Unknown: 12/2020 - Review of Systems Constitutional: No Symptoms Eyes: Tearing, Foreign Body Sensation Ears, Nose, & Throat: No Symptoms Respiratory: No Symptoms Cardiac: No Symptoms Abdominal/Gastrointestinal: No Symptoms Genitourinary Symptoms: No Symptoms Musculoskeletal: No Symptoms Skin: No Symptoms Neurological: No Symptoms Psychological: No Symptoms Endocrine: No Symptoms Hematologic/Lymphatic: No Symptoms Immunological/Allergic: No Symptoms All Other Systems: Reviewed and Negative - Past Medical History Pertinent Past Medical History: Yes Neurological History: No Pertinent History ENT History: No Pertinent History Cardiac History: No Pertinent History Respiratory History: No Pertinent History Endocrine Medical History: No Pertinent History Musculoskeletal History: No Pertinent History GI Medical History: No Pertinent History History: No Pertinent History Psycho-Social History: Anxiety, Bipolar, Depression, Other Female Reproductive Disorders: No Pertinent History Other Medical History: mulitpersonality disorder - Past Surgical History Past Surgical History: No Neuro Surgical History: No Pertinent History Cardiac: No Pertinent History Respiratory: No Pertinent History Gastrointestinal: No Pertinent History Genitourinary: No Pertinent History Musculoskeletal: No Pertinent History Female Surgical History: No Pertinent History - Social History Smoking Status: Current every day smoker How long have you smoked: years Exposure to second hand smoke: Yes Drug Use: none Patient Lives Alone: No - Nursing Vital Signs Nursing Vital Signs: Initial Vital Signs Pulse Rate 106 H 09/02/23 22:39 Respiratory Rate 20 09/02/23 22:39 Blood Pressure 146/111 09/02/23 22:39 O2 Sat by Pulse Oximetry 96 09/02/23 22:39 Pain Scale Pain Intensity 5 - Physical Exam General Appearance: no apparent distress, alert, anxiety Vision Acuity Left Eye: 20/100 Eye Exam: right eye: conjunctival inflammation, corneal abrasion (? 12 o'clock position), left eye: normal inspection, bilateral eye: PERRL, EOMI Ears, Nose, Throat Exam: normal ENT inspection, moist mucous membranes Neck Exam: normal inspection, non-tender, supple, full range of motion Respiratory Exam: airway intact, No chest tenderness, No respiratory distress Cardiovascular Exam: regular rate/rhythm, normal heart sounds, normal peripheral pulses Gastrointestinal Exam: No tenderness Neurologic: alert, oriented x 3, cooperative, repairing calibrator II-XII nml as tested, normal mood/affect, nml cerebellar function, nml station & gait, sensation nml Skin Exam: normal color, warm, dry Lymphatic: No adenopathy SpO2 Interpretation: normal O2 Delivery: Room Air Procedures - Eye Procedure Time of Procedure: 23:00 Tetracaine Drops Administered: Yes Remaining Material after FB Removal: none Antibiotic Oinment/Drps Admin: right eye Progress: No foreign body appreciated. ? Corneal abrasion 12 o'clock position right eye - Course Nursing assessment & vital signs reviewed: Yes Ordered Tests: Medication Summary Discontinued Medications Generic Name Dose Route Start Last Admin Trade Name Lu PRN Reason Stop Dose Admin Fluorescein Sodium Confirm 09/02/23 22:56 Fluorescein Sodium 1 Mg/Strip Strip Administered 09/02/23 22:57 Dose 1 mg OP .STK-MED ONE Tetracaine HCl Confirm 09/02/23 22:56 Tetracaine Hcl/Pf 4 Ml Bottle Administered 09/02/23 22:57 Dose 4 ml OP .STK-MED ONE - Progress Progress: improved, pain not gone completely, re-examined Progress Note: 09/02/23 23:29 This patient's medical issue is 1 of low complexity. The level of complexity in the workup performed is based on review of the patient's past medical history, review the patient's medication list, review of patient's drug allergy list, history of present illness and physical findings on examination. We performed a fluorescein test after tetracaine drops placed. The above-stated findings are noted. We placed 2 Cortisporin suspension eyedrops into the right eye. Counseled pt/family regarding: diagnosis, need for follow-up Medical Desision Making - Diagnostic Testing Diagnostic test were ordered, analyzed, and reviewed by me: No - Risk of complications The pt has a mod risk of morbidity or mortality based on: Need for prescription drug management - Departure Departure Disposition: Home Clinical Impression: Right corneal abrasion Condition: Stable Critical Care Time: No Referrals: TONJA SKY [Primary Care Provider] - Follow up/PCP as directed Additional Instructions: Use the eyedrops as instructed. May purchase an eye patch [id number] and wear it for comfort. Follow-up with the epic kaleidoscope analyst that we provided you the name and contact information. Call them tomorrow, 09/03/2023 to make arrangements for follow-up appointment in the next 3 days. Forms: Work/School Release Form Prescriptions: Neomycin/Polymyxin B/Hydrocort [Iuotgoco-Iomd-Ae Eye Drops] 2 drops OP Q4H #7.5 ml
[2023-09-02 22:52] VITALS: TEMP 97.4
[2023-09-02] MEDS ORDERED: TETRACAINE 0.5% STERI-UNIT SOL OP ONE (22:56)
[2023-09-02] MEDS ORDERED: Fluor-I-Strip/Ful-Flo OP ONE ×2 (22:56→22:57)
[2023-09-02] MEDS ORDERED: TETRACAINE 0.5% STERI-UNIT SOL OP STA (22:57)
[2023-09-02] MEDS ORDERED: Cortisporin Eye Drops OP SCH (23:30)
[2023-09-02] MEDS ORDERED: Cortisporin Eye Drops OP ONE (23:49)
[2023-09-03 00:10] VITALS: BP 152/119; PULSE 112; RESP 22; O2SAT 98
== END 2023-09-03 00:07 | disposition home or self-care (01) ==
LOC: ED 22:34
DX: S05.01XA Injury of conjunctiva and corneal abrasion without foreign body, right eye, initial encounter (principal); W20.8XXA Other cause of strike by thrown, projected or falling object, initial encounter; Y93.E5 Activity, floor mopping and cleaning; Y92.63 Factory as the place of occurrence of the external cause; Y99.0 Civilian activity done for income or pay; Z79.899 Other long term (current) drug therapy; Z72.0 Tobacco use
CPT/HCPCS: 99282; A9270-GY

== ENCOUNTER 2023-10-15 19:27 | Emergency (ER) | payer BC, OTHER ==
[2023-10-15 19:43] VITALS: TEMP 98
[2023-10-15 20:14] LABS: Absolute Neutrophil Ct (ANC) 3.43 x10^3/uL (1.4-6.9); BASOPHIL % 0.8 % (0.0-0.4); Basophil (Absolute #) 0.06 x10^3/uL (0-0.4); Eosinophil % 4.3 % (0.00-5.0); Eosinophil (Absolute #) 0.31 x10^3/uL (0-0.5); Hematocrit 43.2 % (35-47); IMMATURE GRAN # 0.03 x10^3u/L (0.00-0.03); IMMATURE GRAN % 0.4 % (0.00-0.4); Lymphocyte (Absolute #) 2.81 x10^3/uL (1.0-4.6); Mean Cell Volume 90.8 fL (78-100); Mean Corpuscular Hemoglobin 29.4 pg (26-32); Mean Corpuscular Hgb Concent. 32.4 g/dL (32-36); Mean Platelet Volume 10.2 fL (7.5-11.0); Monocyte (Absolute #) 0.56 x10^3/uL (0.0-1.3); Monocytes % 7.8 % (0.0-12.0); Neutrophil % 47.7 % (36.0-66.0); Platelet Count 356 x10^3/uL (150-450); Red Blood Count 4.76 x10^6/uL (4.1-5.4); Red Cell Distribution Width 13.6 % (11.5-14.0); White Blood Count 7.2 x10^3/uL (4.0-10.5)
[2023-10-15 20:20] LABS: HCG URINE TEST NEGATIVE (NEGATIVE)
[2023-10-15 20:31] VITALS: O2SAT 99
[2023-10-15 20:39] LABS: Amphetamine,Urine NEGATIVE (NEGATIVE); Barbiturate,Urine NEGATIVE (NEGATIVE); Benzodiazepine,Urine NEGATIVE (NEGATIVE); Cocaine,Urine NEGATIVE (NEGATIVE); Methadone,Urine NEGATIVE (NEGATIVE); Opiate,Urine NEGATIVE (NEGATIVE); PCP,Urine NEGATIVE (NEGATIVE); THC,Urine NEGATIVE (NEGATIVE)
[2023-10-15 20:44] LABS: ALBUMIN 3.9 g/dL (3.5-5.0); ANION GAP 13.5 MEQ/L (5-15); BILIRUBIN,TOTAL 0.7 mg/dL (0.2-1.3); Calcium 8.8 mg/dL (8.4-10.2); Creatinine 1 0.54 mg/dL (0.52-1.04); EST GLOMERULAR FILTRATION RATE 124.6 ML/MIN; NT PRO BNPII 20.3 pg/mL (<300); Potassium 3.4 mmol/L (3.5-5.1)
[2023-10-15 21:12] VITALS: BP 152/113
--- NOTE | 2023-10-15 22:11 | ERPHSYRPT ---
- History of Present Illness Time Seen by Provider: 10/15/23 19:32 Source: patient Exam Limitations: no limitations Patient Subjective Stated Complaint: pt states that she has been having chest pain since noon Triage Nursing Assessment: pt ambulated into the er; pt is axo x4; c/o chest pain; pt states 4/10 to left arm; clear apical heart tone; strong anh radial pulses; strong anh pedal pulse; c/o numbness to extremities; clear lung sounds in all lobes; skin PDW; no respiratory distress present; vitals wnl Physician History: 32-year-old female presents to emergency department for evaluation of left-sided chest pain. Chest pain started this afternoon. No associated nausea vomiting or diaphoresis. Patient reports some numbness to her left hand. However this numbness to her left hand was present before the chest pain. Patient reports that her job requires repetitive upper extremity motion. Patient is left-hand dominant. No trauma no fever. Chest pain is intermittent. No active pain at this time. Symptoms are mild to moderate in intensity. No specific worsening or improving factors. Patient is a smoker otherwise she has no significant cardiovascular risk factors that we are aware of. Patient voices no other complaints or concerns at this time. Portions of this note were created with voice recognition technology. There may be grammatical, spelling, punctuation or sound alike errors Timing/Duration: today Severity: moderate Modifying Factors: Improves With: cold therapy, nothing Associated Symptoms: denies symptoms Allergies/Adverse Reactions: No Known Drug Allergies Allergy (Verified 10/15/23 19:30) Home Medications: Quetiapine Fumarate 100 mg [Seroquel 100 MG] 100 mg PO HS 12/26/21 [History] Sertraline HCl 50 mg [Zoloft 50 mg Tablet] 50 mg PO HS 12/26/21 [History] Hx Tetanus, Diphtheria Vaccination/Date Given: Yes Hx Influenza Vaccination/Date Given: No Hx Pneumococcal Vaccination/Date Given: No Travel Risk - International Travel Have you traveled outside of the country in past 3 weeks: No - Coronavirus Screening Are you exhibiting any of the following symptoms?: No Close contact with a COVID-19 positive Pt in past 14-21 Days: No - Vaccine Status Have you recieved a Covid-19 vaccination: No Access Clinician: Unknown - Vaccination Dates Dates if Unknown: 12/2020 - Review of Systems Constitutional: No Symptoms, No Fever, No Chills Eyes: No Symptoms Ears, Nose, & Throat: No Symptoms Respiratory: No Symptoms, No Cough, No Dyspnea Cardiac: No Symptoms, No Chest Pain, No Edema, No Syncope Abdominal/Gastrointestinal: No Symptoms, No Abdominal Pain, No Nausea, No Vomiting, No Diarrhea Genitourinary Symptoms: No Symptoms, No Dysuria Musculoskeletal: No Symptoms, No Back Pain, No Neck Pain Skin: No Symptoms, No Rash Neurological: No Symptoms, No Dizziness, No Focal Weakness, No Sensory Changes Psychological: No Symptoms Endocrine: No Symptoms Hematologic/Lymphatic: No Symptoms Immunological/Allergic: No Symptoms All Other Systems: Reviewed and Negative - Past Medical History Pertinent Past Medical History: Yes Neurological History: No Pertinent History ENT History: No Pertinent History Cardiac History: No Pertinent History Respiratory History: No Pertinent History Endocrine Medical History: No Pertinent History Musculoskeletal History: No Pertinent History GI Medical History: No Pertinent History History: No Pertinent History Psycho-Social History: Anxiety, Bipolar, Depression, Other Female Reproductive Disorders: No Pertinent History Other Medical History: mulitpersonality disorder - Past Surgical History Past Surgical History: No Neuro Surgical History: No Pertinent History Cardiac: No Pertinent History Respiratory: No Pertinent History Gastrointestinal: No Pertinent History Genitourinary: No Pertinent History Musculoskeletal: No Pertinent History Female Surgical History: No Pertinent History - Social History Smoking Status: Current every day smoker How long have you smoked: years Exposure to second hand smoke: Yes Drug Use: none Patient Lives Alone: No - Female History Hx Now: No - Nursing Vital Signs Nursing Vital Signs: Initial Vital Signs Temperature 98 F 10/15/23 19:28 Pulse Rate 92 H 10/15/23 19:28 Respiratory Rate 22 10/15/23 19:28 Blood Pressure 129/96 10/15/23 19:28 O2 Sat by Pulse Oximetry 97 10/15/23 19:28 Pain Scale Pain Intensity 4 - Physical Exam General Appearance: no apparent distress, alert Eye Exam: PERRL/EOMI, eyes nml inspection Ears, Nose, Throat Exam: normal ENT inspection, TMs normal, pharynx normal, tamy st mucous membranes Neck Exam: normal inspection, non-tender, supple, full range of motion Respiratory Exam: normal breath sounds, lungs clear, airway intact, No respiratory distress Cardiovascular Exam: regular rate/rhythm, normal heart sounds, normal peripheral pulses Gastrointestinal/Abdomen Exam: soft, normal bowel sounds, No tenderness, No mass Back Exam: normal inspection, normal range of motion, No CVA tenderness, No vertebral tenderness Extremity Exam: normal inspection, normal range of motion, pelvis stable, other (Left upper extremity hand tingling which appears to follow the median nerve distribution. Positive Phalen's test. Patient history of repetitive motion complaints physical exam findings suggestive of carpal tunnel syndrome) Neurologic Exam: alert, oriented x 3, cooperative, normal mood/affect, nml cerebellar function, nml station & gait, sensation nml, No motor deficits Skin Exam: normal color, warm, dry, No rash Lymphatic Exam: No adenopathy SpO2 Interpretation: normal SpO2: 99 O2 Delivery: Room Air - Course Nursing assessment & vital signs reviewed: Yes EKG Interpreted by Me: RATE (89), Sinus Rhythm, NORMAL AXIS, NORMAL INTERVALS - Radiology Exams Chest X-ray Interpretation: Interpreted by me (No acute findings on chest x-ray) Ordered Tests: Active Orders 24 hr Category Date Time Status [employer] STAT Care 10/15/23 19:41 Active EKG-ER Only STAT Care 10/15/23 19:41 Active IV Insertion STAT Care 10/15/23 19:41 Active Pulse Oximetry (ED) STAT Care 10/15/23 19:41 Active CHEST 1 VIEW (PORTABLE) Stat Exams 10/15/23 21:35 Taken CBC W DIFF Stat Lab 10/15/23 19:40 Completed CMP Stat Lab 10/15/23 19:40 Completed D-DIMER QUANTITATIVE Stat Lab 10/15/23 19:40 Completed HCG QUALITATIVE, URINE Stat Lab 10/15/23 19:53 Completed NT PRO BNPII Stat Lab 10/15/23 19:40 Completed TROPONIN Q4H Lab 10/15/23 19:40 Completed TROPONIN Q4H Lab 10/15/23 22:40 Completed TROPONIN Q4H Lab 10/16/23 03:45 Ordered Urine Triage Profile Stat Lab 10/15/23 19:53 Completed Lab/Rad Data: Laboratory Result Diagrams 10/15/23 19:40 10/15/23 19:40 Laboratory Results 10/15/23 10/15/23 10/15/23 Range/Units 22:40 19:53 19:53 WBC (4.0-10.5) x10^3/uL RBC (4.1-5.4) x10^6/uL Hgb (12.0-16.0) g/dL Hct (35-47) % MCV (78-100) fL MCH (26-32) pg MCHC (32-36) g/dL RDW (11.5-14.0) % Plt Count (150-450) x10^3/uL MPV (7.5-11.0) fL Gran % (36.0-66.0) % Immature Gran % (Auto) (0.00-0.4) % Nucleat RBC Rel Count (0.00-0.1) % Eos # (Auto) (0-0.5) x10^3/uL Immature Gran # (Auto) (0.00-0.03) x10^3u/L Absolute Lymphs (auto) (1.0-4.6) x10^3/uL Absolute Monos (auto) (0.0-1.3) x10^3/uL Absolute Nucleated RBC (0.00-0.01) x10^3u/L Lymphocytes % (24.0-44.0) % Monocytes % (0.0-12.0) % Eosinophils % (0.00-5.0) % Basophils % (0.0-0.4) % Absolute Granulocytes (1.4-6.9) x10^3/uL Basophils # (0-0.4) x10^3/uL D-Dimer (0.0-0.50) mg/L Sodium (137-145) mmol/L Potassium (3.5-5.1) mmol/L Chloride (98-107) mmol/L Carbon Dioxide (22-30) mmol/L Anion Gap (5-15) MEQ/L BUN (7-17) mg/dL Creatinine (0.52-1.04) mg/dL Estimated GFR ML/MIN Glucose (74-106) mg/dL Calcium (8.4-10.2) mg/dL Total Bilirubin (0.2-1.3) mg/dL AST (14-36) U/L ALT (0-35) U/L Alkaline Phosphatase (38-126) U/L Troponin I < 0.012 (0.000-0.034) ng/mL NT-Pro-B Natriuret Pep (<300) pg/mL Serum Total Protein (6.3-8.2) g/dL Albumin (3.5-5.0) g/dL Urine HCG, Qual NEGATIVE (NEGATIVE) Urine Opiates Level NEGATIVE (NEGATIVE) Ur Methadone NEGATIVE (NEGATIVE) Urine Barbiturates NEGATIVE (NEGATIVE) Ur Phencyclidine (PCP) NEGATIVE (NEGATIVE) Urine Amphetamine NEGATIVE (NEGATIVE) U Benzodiazepine Level NEGATIVE (NEGATIVE) Urine Cocaine NEGATIVE (NEGATIVE) Urine Marijuana (THC) NEGATIVE (NEGATIVE) 10/15/23 10/15/23 10/15/23 Range/Units 19:40 19:40 19:40 WBC (4.0-10.5) x10^3/uL RBC (4.1-5.4) x10^6/uL Hgb (12.0-16.0) g/dL Hct (35-47) % MCV (78-100) fL MCH (26-32) pg MCHC (32-36) g/dL RDW (11.5-14.0) % Plt Count (150-450) x10^3/uL MPV (7.5-11.0) fL Gran % (36.0-66.0) % Immature Gran % (Auto) (0.00-0.4) % Nucleat RBC Rel Count (0.00-0.1) % Eos # (Auto) (0-0.5) x10^3/uL Immature Gran # (Auto) (0.00-0.03) x10^3u/L Absolute Lymphs (auto) (1.0-4.6) x10^3/uL Absolute Monos (auto) (0.0-1.3) x10^3/uL Absolute Nucleated RBC (0.00-0.01) x10^3u/L Lymphocytes % (24.0-44.0) % Monocytes % (0.0-12.0) % Eosinophils % (0.00-5.0) % Basophils % (0.0-0.4) % Absolute Granulocytes (1.4-6.9) x10^3/uL Basophils # (0-0.4) x10^3/uL D-Dimer 0.32 (0.0-0.50) mg/L Sodium 135 L (137-145) mmol/L Potassium 3.4 L (3.5-5.1) mmol/L Chloride 106 (98-107) mmol/L Carbon Dioxide 19 L (22-30) mmol/L Anion Gap 13.5 (5-15) MEQ/L BUN 3 L (7-17) mg/dL Creatinine 0.54 (0.52-1.04) mg/dL Estimated GFR 124.6 ML/MIN Glucose 124 H (74-106) mg/dL Calcium 8.8 (8.4-10.2) mg/dL Total Bilirubin 0.70 (0.2-1.3) mg/dL AST 167 H (14-36) U/L ALT 92 H (0-35) U/L Alkaline Phosphatase 102 (38-126) U/L Troponin I < 0.012 (0.000-0.034) ng/mL NT-Pro-B Natriuret Pep 20.3 (<300) pg/mL Serum Total Protein 7.0 (6.3-8.2) g/dL Albumin 3.9 (3.5-5.0) g/dL Urine HCG, Qual (NEGATIVE) Urine Opiates Level (NEGATIVE) Ur Methadone (NEGATIVE) Urine Barbiturates (NEGATIVE) Ur Phencyclidine (PCP) (NEGATIVE) Urine Amphetamine (NEGATIVE) U Benzodiazepine Level (NEGATIVE) Urine Cocaine (NEGATIVE) Urine Marijuana (THC) (NEGATIVE) 10/15/23 Range/Units 19:40 WBC 7.2 (4.0-10.5) x10^3/uL RBC 4.76 (4.1-5.4) x10^6/uL Hgb 14.0 (12.0-16.0) g/dL Hct 43.2 (35-47) % MCV 90.8 (78-100) fL MCH 29.4 (26-32) pg MCHC 32.4 (32-36) g/dL RDW 13.6 (11.5-14.0) % Plt Count 356 (150-450) x10^3/uL MPV 10.2 (7.5-11.0) fL Gran % 47.7 (36.0-66.0) % Immature Gran % (Auto) 0.4 (0.00-0.4) % Nucleat RBC Rel Count 0.0 (0.00-0.1) % Eos # (Auto) 0.31 (0-0.5) x10^3/uL Immature Gran # (Auto) 0.03 (0.00-0.03) x10^3u/L Absolute Lymphs (auto) 2.81 (1.0-4.6) x10^3/uL Absolute Monos (auto) 0.56 (0.0-1.3) x10^3/uL Absolute Nucleated RBC 0.00 (0.00-0.01) x10^3u/L Lymphocytes % 39.0 (24.0-44.0) % Monocytes % 7.8 (0.0-12.0) % Eosinophils % 4.3 (0.00-5.0) % Basophils % 0.8 (0.0-0.4) % Absolute Granulocytes 3.43 (1.4-6.9) x10^3/uL Basophils # 0.06 (0-0.4) x10^3/uL D-Dimer (0.0-0.50) mg/L Sodium (137-145) mmol/L Potassium (3.5-5.1) mmol/L Chloride (98-107) mmol/L Carbon Dioxide (22-30) mmol/L Anion Gap (5-15) MEQ/L BUN (7-17) mg/dL Creatinine (0.52-1.04) mg/dL Estimated GFR ML/MIN Glucose (74-106) mg/dL Calcium (8.4-10.2) mg/dL Total Bilirubin (0.2-1.3) mg/dL AST (14-36) U/L ALT (0-35) U/L Alkaline Phosphatase (38-126) U/L Troponin I (0.000-0.034) ng/mL NT-Pro-B Natriuret Pep (<300) pg/mL Serum Total Protein (6.3-8.2) g/dL Albumin (3.5-5.0) g/dL Urine HCG, Qual (NEGATIVE) Urine Opiates Level (NEGATIVE) Ur Methadone (NEGATIVE) Urine Barbiturates (NEGATIVE) Ur Phencyclidine (PCP) (NEGATIVE) Urine Amphetamine (NEGATIVE) U Benzodiazepine Level (NEGATIVE) Urine Cocaine (NEGATIVE) Urine Marijuana (THC) (NEGATIVE) - Progress Progress: improved Progress Note: Heart score 2 10/15/23 23:46 32-year-old female presents to our ED for evaluation of chest pain that started at noon. Patient also complains of tingling to her left hand. Physical exam suggestive of carpal tunnel of her left hand. EKG normal sinus rhythm. Chest x-ray nonremarkable. CBC CMP nonremarkable. D-dimer negative. hCG negative. BNP within normal limits. Troponin negative x 2. Urine triage negative. Patient reassessed. Patient asymptomatic vitals within normal limits. Patient that she is ready for discharge. Patient given a left upper extremity cock up splint. Patient will follow-up with her primary care doctor on Saturday. A work note provided per her request. Patient voices no other complaints or concerns at this time. Portions of this note were created with voice recognition technology. There may be grammatical, spelling, punctuation or sound alike errors Complexity problem addressed is moderate acute complicated No critical care time Complexity of data reviewed and analyzed is moderate. Test ordered test reviewed results analyzed and correlated clinically. Dr. Miller independently reviewed the EKG chest x-ray and associated laboratory workup. Risk of complication and or risk of morbidity/mortality of patient management is low. Vital stable. Time spent to discharge patient is approximately 20 minutes. Plan of care established for shared decision making. No social determinants of health present impede follow-up. Left upper extremity cock-up splint provided. Patient currently has a follow-up appointment with her family doctor on Saturday. Portions of this note were created with voice recognition technology. There may be grammatical, spelling, punctuation or sound alike errors 10/15/23 23:56 Counseled pt/family regarding: lab results, diagnosis, need for follow-up, rad results - Departure Departure Disposition: Home Clinical Impression: Carpal tunnel syndrome, Chest pain Condition: Stable Critical Care Time: No Referrals: TONJA SKY [Primary Care Provider] - Follow up/PCP as directed Instructions: Carpal Tunnel Syndrome (DC), Chest Pain (DC) Additional Instructions: Discharge/Care Plan GOPAL RUIZ Arianna was seen on 10/15/23 in the Emergency Room. The patient was counseled regarding Diagnosis,Lab results, Imaging studies, need for follow up a nd when to return to the Emergency Room. Prescriptions given: Discharge Note I have spoken with the patient and/or caregivers. I have explained the patient's condition, diagnosis and treatment plan based on the information available to me at this time. I have answered the patient's and/or caregiver's questions and addressed any concerns. The patient and/or caregivers have as good understanding of the patient's diagnosis, condition and treatment plan as can be expected at this point. The vital signs have been stable. The patient's condition is stable and appropriate for discharge from the emergency department. The patient will pursue further outpatient evaluation with the primary care physician or other designated or consulting physician as outlined in the discharge instructions. The patient and/or caregivers are agreeable to this plan of care and follow-up instructions have been explained in detail. The patient and/or caregivers have received these instruction. The patient/and or caregivers are aware that any significant change in condition or worsening of symptoms should prompt an immediate return to this or the closest emergency department or call 911. Forms: Work/School Release Form
[2023-10-15 23:24] VITALS: PULSE 106; RESP 18
--- NOTE | 2023-10-16 08:43 | XRAY ---
Indication: Chest pain. Comparison: None Portable chest demonstrates normal heart, lungs, and bony thorax.
== END 2023-10-15 23:53 | disposition home or self-care (01) ==
LOC: ED 19:27
DX: G56.02 Carpal tunnel syndrome, left upper limb (principal); R07.9 Chest pain, unspecified; Z79.899 Other long term (current) drug therapy; Z72.0 Tobacco use
CPT/HCPCS: 36000; 36415; 71045; 80053; 80307; 81025; 83880; 84484; 85025; 85379; 93005; 93041; 94760; 99284; L3908

== ENCOUNTER 2023-12-16 17:01 | Emergency (ER) | payer BC, OTHER ==
[2023-12-16 17:57] VITALS: TEMP 97.2
--- NOTE | 2023-12-16 18:19 | ERPHSYRPT ---
- History of Present Illness Source: patient Exam Limitations: no limitations Patient Subjective Stated Complaint: PT states "I have been vomiting all morning. I cannot hold anything down." Triage Nursing Assessment: PT presented alert and oriented X 3, skin pwd. PT ambulates with an upright steady gait, able to speak in clear full sentences. PT dry heaving and vomiting Hx Tetanus, Diphtheria Vaccination/Date Given: Yes Hx Influenza Vaccination/Date Given: No Hx Pneumococcal Vaccination/Date Given: No Immunizations Up to Date: No <ALANNAH AGUERO - Last Filed: 12/16/23 19:10> <ARABELLA AVALOS - Last Filed: 12/16/23 23:17> - History of Present Illness Time Seen by Provider: 12/16/23 18:01 Physician History: Patient is here with vomiting all day. States that she cannot hold anything down. No falls or trauma. Patient states that she did drink alcohol this weekend. However did not drink a lot. She denies any other drug use. Patient states that she is regularly drug tested, is on house arrest for methamphetamine distribution. She does not believe that she is . Currently on her period. No other falls or trauma, headache. She has not tried anything at home to make it better or worse. Patient states that she does feel like she has "the flu". Generalized malaise. (ALANNAH AGUERO) Allergies/Adverse Reactions: No Known Drug Allergies Allergy (Verified 10/15/23 19:30) Home Medications: Cholecalciferol (Vitamin D3) [Vitajoy Daily D] 25 mcg PO DAILY 12/16/23 [History] Fluoxetine HCl 20 mg [Prozac 20 MG] 20 mg PO DAILY 12/16/23 [History] Folic Acid 1 mg [Folate 1 mg] 1 mg PO DAILY 12/16/23 [History] Travel Risk - International Travel Have you traveled outside of the country in past 3 weeks: No - Coronavirus Screening Are you exhibiting any of the following symptoms?: Yes Symptoms: Vomiting/Diarrhea Close contact with a COVID-19 positive Pt in past 14-21 Days: No - Vaccine Status Have you recieved a Covid-19 vaccination: No 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 - Vaccination Dates Dates if Unknown: 12/2020 <ALANNAH AGUERO - Last Filed: 12/16/23 19:10> - Past Medical History Pertinent Past Medical History: Yes Neurological History: No Pertinent History ENT History: No Pertinent History Cardiac History: No Pertinent History Respiratory History: No Pertinent History Endocrine Medical History: No Pertinent History Musculoskeletal History: No Pertinent History GI Medical History: No Pertinent History History: No Pertinent History Psycho-Social History: Anxiety, Bipolar, Depression, Other Female Reproductive Disorders: No Pertinent History Other Medical History: mulitpersonality disorder - Past Surgical History Past Surgical History: No Neuro Surgical History: No Pertinent History Cardiac: No Pertinent History Respiratory: No Pertinent History Gastrointestinal: No Pertinent History Genitourinary: No Pertinent History Musculoskeletal: No Pertinent History Female Surgical History: No Pertinent History - Female History Hx Last Menstrual Period: 12/16/2023 Hx Now: No - Social History Smoking Status: Current every day smoker How long have you smoked: years Exposure to second hand smoke: Yes Drug Use: none Patient Lives Alone: No <ALANNAH AGUERO - Last Filed: 12/16/23 19:10> - Physical Exam SpO2: 97 <ALANNAH AGUERO - Last Filed: 12/16/23 19:10> - Nursing Vital Signs Nursing Vital Signs: Initial Vital Signs Temperature 97.2 F 12/16/23 17:52 Pulse Rate 149 H 12/16/23 17:52 Respiratory Rate 22 12/16/23 17:52 Blood Pressure 147/106 12/16/23 17:52 O2 Sat by Pulse Oximetry 97 12/16/23 17:52 Pain Scale Pain Intensity 2 - Physical Exam Comments: 12/16/23 18:18 Review of Systems Constitutional: Negative for fever. HENT: Negative for congestion. Respiratory: Negative for shortness of breath. Cardiovascular: Negative for chest pain. Gastrointestinal: Vomiting Genitourinary: Negative for dysuria. Musculoskeletal: Negative for back pain. Skin: Negative for rash. Neurological: Negative for headaches. Psychiatric/Behavioral: Negative for behavioral problems. All other systems reviewed and are negative. Physical Exam Vitals signs and nursing note reviewed. Constitutional: Appearance: Patient is well-developed. HENT: Head: Normocephalic and atraumatic. Eyes: Conjunctiva/sclera: Conjunctivae normal. Neck: Musculoskeletal: Normal range of motion. Trachea: No tracheal deviation. Cardiovascular: Rate and Rhythm: Normal rate. Pulmonary: Effort: Pulmonary effort is normal. No respiratory distress. Abdominal: Palpations: Abdomen is soft. Musculoskeletal: General: No deformity. Skin: General: Skin is warm and dry. Neurological/ Psychiatric: Mental Status: Mental status, behavior, interaction with environment is appropriate for patient's age and condition (ALANNAH AGUERO) - Course Nursing assessment & vital signs reviewed: Yes <ALANNAH AGUERO - Last Filed: 12/16/23 19:10> Ordered Tests: Active Orders 24 hr Category Date Time Status Clean Catch Urine Specimen STAT Care 12/16/23 20:10 Active EKG-ER Only STAT Care 12/16/23 18:08 Active IV Insertion STAT Care 12/16/23 18:08 Active Telemetry q4h Care 12/16/23 20:07 Completed ABDOMEN AND PELVIS W CONTRAST [CT] Stat Exams 12/16/23 18:51 Taken CBC W DIFF Stat Lab 12/16/23 18:08 Completed CMP Stat Lab 12/16/23 18:20 Completed CULTURE,URINE Stat Lab 12/16/23 20:15 Received ETHYL ALCOHOL Stat Lab 12/16/23 18:20 Completed HCG QUALITATIVE, SERUM Stat Lab 12/16/23 18:20 Completed LIPASE Stat Lab 12/16/23 18:20 Completed MAG [MAGNESIUM] Stat Lab 12/16/23 18:20 Completed UA W/RFX UR CULTURE Stat Lab 12/16/23 20:15 Completed Urine Triage Profile Stat Lab 12/16/23 20:15 Completed Medication Summary Generic Name Dose Route Start Last Admin Trade Name Freq PRN Reason Stop Dose Admin Lactated Ringer's 500 mls @ 100 mls/hr 12/16/23 22:30 12/16/23 22:41 Lactated Ringers IV 01/15/24 22:29 100 mls/hr .Q5H DANE Administration Discontinued Medications Generic Name Dose Route Start Last Admin Trade Name Freq PRN Reason Stop Dose Admin Diphenhydramine HCl 25 mg 12/16/23 18:08 12/16/23 18:27 Diphenhydramine Hcl 50 Mg/Ml Vial IV 12/16/23 18:09 25 mg STAT ONE Administration Diphenhydramine HCl Confirm 12/16/23 18:25 Diphenhydramine Hcl 50 Mg/Ml Vial Administered 12/16/23 18:26 Dose 50 mg .ROUTE .STK-MED ONE Droperidol 1.25 mg 12/16/23 18:08 12/16/23 18:27 Droperidol 5 Mg/2 Ml Vial IV 12/16/23 18:09 1.25 mg STAT ONE Administration Droperidol Confirm 12/16/23 18:25 Droperidol 5 Mg/2 Ml Vial Administered 12/16/23 18:26 Dose 5 mg .ROUTE .STK-MED ONE Sodium Chloride 1,000 mls @ 999 mls/hr 12/16/23 18:08 12/16/23 20:00 Sodium Chloride 0.9% 1000 Ml IV 12/16/23 19:08 Infused .Q1H1M STA Infusion Sodium Chloride 1,000 mls @ 999 mls/hr 12/16/23 18:10 12/16/23 20:01 Sodium Chloride 0.9% 1000 Ml IV 12/16/23 19:10 Infused .Q1H1M STA Infusion Sodium Chloride Confirm 12/16/23 18:25 Sodium Chloride 0.9% 1000 Ml Administered 12/16/23 18:26 Dose 1,000 mls @ ud .ROUTE .STK-MED ONE Sodium Chloride Confirm 12/16/23 18:25 Sodium Chloride 0.9% 1000 Ml Administered 12/16/23 18:26 Dose 1,000 mls @ ud .ROUTE .STK-MED ONE Potassium Chloride 20 meq in 100 mls @ 50 mls/hr 12/16/23 20:07 12/16/23 20:28 Potassium Chloride 20 Meq In Water 100ml IV 12/16/23 22:06 50 mls/hr STAT ONE Administration Lactated Ringer's 1,000 mls @ 999 mls/hr 12/16/23 20:21 12/16/23 20:27 Lactated Ringers IV 12/16/23 21:21 999 mls/hr .Q1H1M ONE Administration Lactated Ringer's Confirm 12/16/23 20:21 Lactated Ringers Administered 12/16/23 20:22 Dose 1,000 mls @ ud IV .STK-MED ONE Potassium Chloride Confirm 12/16/23 20:21 Potassium Chloride 20 Meq In Water 100ml Administered 12/16/23 20:22 Dose 100 mls @ ud IV .STK-MED ONE Piperacillin Sod/Tazobactam 100 mls @ 200 mls/hr 12/16/23 22:31 Sod 3.375 gm/ Sodium Chloride IV 12/16/23 23:00 STAT ONE Lactated Ringer's Confirm 12/16/23 22:33 Lactated Ringers Administered 12/16/23 22:34 Dose 1,000 mls @ ud IV .STK-MED ONE Ketorolac Tromethamine 30 mg 12/16/23 18:08 12/16/23 18:36 Ketorolac Tromethamine 30 Mg/Ml Inj IV 12/16/23 18:09 30 mg STAT ONE Administration Ketorolac Tromethamine Confirm 12/16/23 18:35 Ketorolac Tromethamine 30 Mg/Ml Inj Administered 12/16/23 18:36 Dose 30 mg .ROUTE .STK-MED ONE Ondansetron HCl 4 mg 12/16/23 18:08 12/16/23 18:28 Ondansetron Hcl 4 Mg/2 Ml Vial IV 12/16/23 18:09 4 mg STAT ONE Administration Ondansetron HCl Confirm 12/16/23 18:25 Ondansetron Hcl 4 Mg/2 Ml Vial Administered 12/16/23 18:26 Dose 4 mg .ROUTE .STK-MED ONE Lab/Rad Data: Laboratory Result Diagrams 12/16/23 18:08 12/16/23 18:20 Laboratory Results 12/16/23 12/16/23 12/16/23 Range/Units 20:15 20:15 18:30 WBC (4.0-10.5) x10^3/uL RBC (4.1-5.4) x10^6/uL Hgb (12.0-16.0) g/dL Hct (35-47) % MCV (78-100) fL MCH (26-32) pg MCHC (32-36) g/dL RDW (11.5-14.0) % Plt Count (150-450) x10^3/uL MPV (7.5-11.0) fL Gran % (36.0-66.0) % Immature Gran % (Auto) (0.00-0.4) % Nucleat RBC Rel Count (0.00-0.1) % Eos # (Auto) (0-0.5) x10^3/uL Immature Gran # (Auto) (0.00-0.03) x10^3u/L Absolute Lymphs (auto) (1.0-4.6) x10^3/uL Absolute Monos (auto) (0.0-1.3) x10^3/uL Absolute Nucleated RBC (0.00-0.01) x10^3u/L Lymphocytes % (24.0-44.0) % Monocytes % (0.0-12.0) % Eosinophils % (0.00-5.0) % Basophils % (0.0-0.4) % Absolute Granulocytes (1.4-6.9) x10^3/uL Basophils # (0-0.4) x10^3/uL Sodium (135-145) mmol/L Potassium (3.5-5.1) mmol/L Chloride (98-107) mmol/L Carbon Dioxide (22-30) mmol/L Anion Gap (5-15) MEQ/L BUN (7-17) mg/dL Creatinine (0.52-1.04) mg/dL Estimated GFR ML/MIN Glucose (74-106) mg/dL Calcium (8.4-10.2) mg/dL Magnesium (1.6-2.3) mg/dL Total Bilirubin (0.2-1.3) mg/dL AST (14-36) U/L ALT (0-35) U/L Alkaline Phosphatase (38-126) U/L Serum Total Protein (6.3-8.2) g/dL Albumin (3.5-5.0) g/dL Lipase (23-300) U/L Serum HCG, Qual (NEGATIVE) Urine Color [place] A (Yellow) Urine Appearance Cloudy A (Clear) Urine pH 5.5 (4.6-8.0) Ur Specific [place] 1.015 (1.005-1.030) Urine Protein 30 (Negative) Urine Glucose (UA) Negative (Negative) mg/dL Urine Ketones 15 A (Negative) Urine Blood Large A (Negative) Urine Nitrite Negative (Negative) Urine Bilirubin Negative (Negative) Urine Urobilinogen 1.0 A (0.2) mg/dL Ur Leukocyte Esterase Moderate A (Negative) U Hyaline Cast (Auto) 0-2 (0-2) /LPF Urine Microscopic RBC 51-100 A (0-5) /HPF Urine Microscopic WBC 11-20 A (0-5) /HPF Ur Epithelial Cells Rare (None Seen) /HPF Urine Bacteria Few A (None Seen) /HPF Urine Culture Reflexed YES (NO) Urine Opiates Level NEGATIVE (NEGATIVE) Ur Methadone NEGATIVE (NEGATIVE) Urine Barbiturates NEGATIVE (NEGATIVE) Ur Phencyclidine (PCP) NEGATIVE (NEGATIVE) Urine Amphetamine NEGATIVE (NEGATIVE) U Benzodiazepine Level NEGATIVE (NEGATIVE) Urine Cocaine NEGATIVE (NEGATIVE) Urine Marijuana (THC) NEGATIVE (NEGATIVE) Ethyl Alcohol (0-10) mg/dL Influenza Type A Ag NEGATIVE (NEGATIVE) Influenza Type B Ag NEGATIVE (NEGATIVE) RSV (PCR) NEGATIVE (NEGATIVE) SARS-CoV-2 (PCR) NEGATIVE (NEGATIVE) 12/16/23 12/16/23 12/16/23 Range/Units 18:20 18:20 18:20 WBC (4.0-10.5) x10^3/uL RBC (4.1-5.4) x10^6/uL Hgb (12.0-16.0) g/dL Hct (35-47) % MCV (78-100) fL MCH (26-32) pg MCHC (32-36) g/dL RDW (11.5-14.0) % Plt Count (150-450) x10^3/uL MPV (7.5-11.0) fL Gran % (36.0-66.0) % Immature Gran % (Auto) (0.00-0.4) % Nucleat RBC Rel Count (0.00-0.1) % Eos # (Auto) (0-0.5) x10^3/uL Immature Gran # (Auto) (0.00-0.03) x10^3u/L Absolute Lymphs (auto) (1.0-4.6) x10^3/uL Absolute Monos (auto) (0.0-1.3) x10^3/uL Absolute Nucleated RBC (0.00-0.01) x10^3u/L Lymphocytes % (24.0-44.0) % Monocytes % (0.0-12.0) % Eosinophils % (0.00-5.0) % Basophils % (0.0-0.4) % Absolute Granulocytes (1.4-6.9) x10^3/uL Basophils # (0-0.4) x10^3/uL Sodium (135-145) mmol/L Potassium (3.5-5.1) mmol/L Chloride (98-107) mmol/L Carbon Dioxide (22-30) mmol/L Anion Gap (5-15) MEQ/L BUN (7-17) mg/dL Creatinine (0.52-1.04) mg/dL Estimated GFR ML/MIN Glucose (74-106) mg/dL Calcium (8.4-10.2) mg/dL Magnesium 1.5 L (1.6-2.3) mg/dL Total Bilirubin (0.2-1.3) mg/dL AST (14-36) U/L ALT (0-35) U/L Alkaline Phosphatase (38-126) U/L Serum Total Protein (6.3-8.2) g/dL Albumin (3.5-5.0) g/dL Lipase (23-300) U/L Serum HCG, Qual NEGATIVE (NEGATIVE) Urine Color (Yellow) Urine Appearance (Clear) Urine pH (4.6-8.0) Ur Specific [place] (1.005-1.030) Urine Protein (Negative) Urine Glucose (UA) (Negative) mg/dL Urine Ketones (Negative) Urine Blood (Negative) Urine Nitrite (Negative) Urine Bilirubin (Negative) Urine Urobilinogen (0.2) mg/dL Ur Leukocyte Esterase (Negative) U Hyaline Cast (Auto) (0-2) /LPF Urine Microscopic RBC (0-5) /HPF Urine Microscopic WBC (0-5) /HPF Ur Epithelial Cells (None Seen) /HPF Urine Bacteria (None Seen) /HPF Urine Culture Reflexed (NO) Urine Opiates Level (NEGATIVE) Ur Methadone (NEGATIVE) Urine Barbiturates (NEGATIVE) Ur Phencyclidine (PCP) (NEGATIVE) Urine Amphetamine (NEGATIVE) U Benzodiazepine Level (NEGATIVE) Urine Cocaine (NEGATIVE) Urine Marijuana (THC) (NEGATIVE) Ethyl Alcohol < 10 (0-10) mg/dL Influenza Type A Ag (NEGATIVE) Influenza Type B Ag (NEGATIVE) RSV (PCR) (NEGATIVE) SARS-CoV-2 (PCR) (NEGATIVE) 12/16/23 12/16/23 Range/Units 18:20 18:08 WBC 17.4 H (4.0-10.5) x10^3/uL RBC 5.64 H (4.1-5.4) x10^6/uL Hgb 17.4 H (12.0-16.0) g/dL Hct 52.9 H (35-47) % MCV 93.8 (78-100) fL MCH 30.9 (26-32) pg MCHC 32.9 (32-36) g/dL RDW 14.0 (11.5-14.0) % Plt Count 496 H (150-450) x10^3/uL MPV 9.9 (7.5-11.0) fL Gran % 90.4 H (36.0-66.0) % Immature Gran % (Auto) 1.0 H (0.00-0.4) % Nucleat RBC Rel Count 0.0 (0.00-0.1) % Eos # (Auto) 0 (0-0.5) x10^3/uL Immature Gran # (Auto) 0.17 H (0.00-0.03) x10^3u/L Absolute Lymphs (auto) 0.68 L (1.0-4.6) x10^3/uL Absolute Monos (auto) 0.72 (0.0-1.3) x10^3/uL Absolute Nucleated RBC 0.00 (0.00-0.01) x10^3u/L Lymphocytes % 3.9 L (24.0-44.0) % Monocytes % 4.1 (0.0-12.0) % Eosinophils % 0.0 (0.00-5.0) % Basophils % 0.6 (0.0-0.4) % Absolute Granulocytes 15.76 H (1.4-6.9) x10^3/uL Basophils # 0.11 (0-0.4) x10^3/uL Sodium 144 (135-145) mmol/L Potassium 2.9 L* (3.5-5.1) mmol/L Chloride 100 (98-107) mmol/L Carbon Dioxide 17 L (22-30) mmol/L Anion Gap 30.5 H (5-15) MEQ/L BUN 4 L (7-17) mg/dL Creatinine 1.01 (0.52-1.04) mg/dL Estimated GFR 74.9 ML/MIN Glucose 175 H (74-106) mg/dL Calcium 9.7 (8.4-10.2) mg/dL Magnesium (1.6-2.3) mg/dL Total Bilirubin 1.80 H (0.2-1.3) mg/dL AST 453 H (14-36) U/L ALT 120 H (0-35) U/L Alkaline Phosphatase 221 H (38-126) U/L Serum Total Protein 8.8 H (6.3-8.2) g/dL Albumin 4.8 (3.5-5.0) g/dL Lipase 218 (23-300) U/L Serum HCG, Qual (NEGATIVE) Urine Color (Yellow) Urine Appearance (Clear) Urine pH (4.6-8.0) Ur Specific [place] (1.005-1.030) Urine Protein (Negative) Urine Glucose (UA) (Negative) mg/dL Urine Ketones (Negative) Urine Blood (Negative) Urine Nitrite (Negative) Urine Bilirubin (Negative) Urine Urobilinogen (0.2) mg/dL Ur Leukocyte Esterase (Negative) U Hyaline Cast (Auto) (0-2) /LPF Urine Microscopic RBC (0-5) /HPF Urine Microscopic WBC (0-5) /HPF Ur Epithelial Cells (None Seen) /HPF Urine Bacteria (None Seen) /HPF Urine Culture Reflexed (NO) Urine Opiates Level (NEGATIVE) Ur Methadone (NEGATIVE) Urine Barbiturates (NEGATIVE) Ur Phencyclidine (PCP) (NEGATIVE) Urine Amphetamine (NEGATIVE) U Benzodiazepine Level (NEGATIVE) Urine Cocaine (NEGATIVE) Urine Marijuana (THC) (NEGATIVE) Ethyl Alcohol (0-10) mg/dL Influenza Type A Ag (NEGATIVE) Influenza Type B Ag (NEGATIVE) RSV (PCR) (NEGATIVE) SARS-CoV-2 (PCR) (NEGATIVE) - Progress Progress: improved Counseled pt/family regarding: lab results, diagnosis, need for follow-up <ALANNAH AGUERO - Last Filed: 12/16/23 19:10> <ARABELLA AVALOS - Last Filed: 12/16/23 23:17> - Progress Progress Note: 12/16/23 18:18 Differential diagnosis includes alcohol gastritis, infection, UTI, electrolyte abnormality, flu, COVID, RSV Plan to place an IV, basic labs, fluids, COVID screen, antinausea medication 12/16/23 19:10 Transfer of care to Dr. Avalos at 7 PM. He will follow-up on all labs and imaging, reexamine the patient. Disposition per this. (ALANNAH AGUERO) 12/16/23 22:23 I interpreted the patient's laboratory data results. Patient does have a significant leukocytosis as well as elevated LFTs. The CT scan of the abdomen pelvis without contrast was interpreted by the radiologist and I reviewed the impression. There is tiny amount of distal paraesophageal free air concerning for perforated esophagus. 12/16/23 22:[address] Shaggy Givens, our general surgeon on-call this evening. I reviewed the patient history, presenting complaint, physical findings on examination, laboratory results as well as radiographic study results. He stated that here at [facility] as well as [facility] (which he also covers as a general surgeon) do not have the equipment potentially necessary to treat this patient. Therefore we will need to transfer the patient. 12/16/23 22:59 I spoke with the patient and reviewed the CT scan of the abdomen pelvis without contrast findings. Patient is adamant that she wants to go home. She wants to sign out AGAINST MEDICAL ADVICE. She is aware that her condition, without treatment or intervention, could lead to . She is awake alert oriented. She was able to repeat the reason why I think she needs to be hospitalized at a different facility. She will sign the AGAINST MEDICAL ADVICE form. 12/16/23 23:10 (ARABELLA AVALOS) Medical Desision Making - Diagnostic Testing Diagnostic test were ordered, analyzed, and reviewed by me: Yes Radiological Interpretation: Reviewed by me, Teleradiologist Report - Risk of complications The pt has a high risk of morbidity or mortality based on: Decision regarding hospitilization or escalation of hosp level of care <ARABELLA AVALOS - Last Filed: 12/16/23 23:17> - Departure Critical Care Time: No <ALANNAH AGUERO - Last Filed: 12/16/23 19:10> - Departure Departure Disposition: AMA Critical Care Time: Yes Critical Care Time(excluding separately billable procedures): Critical 30-74 mins (45 minutes) <ARABELLA AVALOS - Last Filed: 12/16/23 23:17> - Departure Clinical Impression: Vomiting with nausea, not intractable, Esophageal perforation Condition: Fair Referrals: KIRSTIN VO [Primary Care Provider] - Follow up/PCP as directed Additional Instructions: As we discussed, you are signing out AGAINST MEDICAL ADVICE. Your medical condition is an emergent one. You have voiced an understanding of this. You have signed an AGAINST MEDICAL ADVICE form. Do not eat or drink anything. You need to be in the hospital for further evaluation and management of this emergency condition. Forms: Work/School Release Form
[2023-12-16] MEDS ORDERED: Zofran 4 MG/2 ML VIAL ONE (18:25)
[2023-12-16] MEDS ORDERED: BENADRYL 50 MG/ML ONE (18:25)
[2023-12-16] MEDS ORDERED: Sodium Chloride 0.9% 1000 ML 1,000 ML ONE ×2 (18:25)
[2023-12-16] MEDS: BENADRYL 50 MG/ML IV ONE (18:27)
[2023-12-16] MEDS: Sodium Chloride 0.9% 1000 ML 1,000 ML IV STA ×2 (18:27)
[2023-12-16] MEDS: Zofran 4 MG/2 ML VIAL IV ONE (18:28)
[2023-12-16] MEDS ORDERED: TORAdol 30 mg Injection ONE (18:35)
[2023-12-16] MEDS: TORAdol 30 mg Injection IV ONE (18:36)
[2023-12-16 18:45] LABS: Absolute Neutrophil Ct (ANC) 15.76 x10^3/uL (1.4-6.9); BASOPHIL % 0.6 % (0.0-0.4); Basophil (Absolute #) 0.11 x10^3/uL (0-0.4); Eosinophil (Absolute #) 0 x10^3/uL (0-0.5); Hematocrit 52.9 % (35-47); Hemoglobin 17.4 g/dL (12.0-16.0); IMMATURE GRAN # 0.17 x10^3u/L (0.00-0.03); Lymphocyte (Absolute #) 0.68 x10^3/uL (1.0-4.6); Lymphocytes % 3.9 % (24.0-44.0); Mean Cell Volume 93.8 fL (78-100); Mean Corpuscular Hemoglobin 30.9 pg (26-32); Mean Corpuscular Hgb Concent. 32.9 g/dL (32-36); Mean Platelet Volume 9.9 fL (7.5-11.0); Monocyte (Absolute #) 0.72 x10^3/uL (0.0-1.3); Monocytes % 4.1 % (0.0-12.0); Neutrophil % 90.4 % (36.0-66.0); Platelet Count 496 x10^3/uL (150-450); Red Blood Count 5.64 x10^6/uL (4.1-5.4); White Blood Count 17.4 x10^3/uL (4.0-10.5)
[2023-12-16 18:59] LABS: HCG SERUM TEST NEGATIVE (NEGATIVE)
[2023-12-16 19:01] LABS: ALBUMIN 4.8 g/dL (3.5-5.0); ANION GAP 30.5 MEQ/L (5-15); BILIRUBIN,TOTAL 1.8 mg/dL (0.2-1.3); Calcium 9.7 mg/dL (8.4-10.2); Creatinine 1 1.01 mg/dL (0.52-1.04); EST GLOMERULAR FILTRATION RATE 74.9 ML/MIN; Total Protein 8.8 g/dL (6.3-8.2)
[2023-12-16 19:20] LABS: Potassium 2.9 mmol/L (3.5-5.1)
[2023-12-16 19:22] LABS: INFLUENZA A NEGATIVE (NEGATIVE); INFLUENZA B NEGATIVE (NEGATIVE); RESPIRATORY SYNCTIAL VIRUS NEGATIVE (NEGATIVE); SARS-CoV-2 Xpert Express NEGATIVE (NEGATIVE)
[2023-12-16] MEDS ORDERED: Lactated Ringers 1,000 ML IV ONE ×2 (20:21→22:33)
[2023-12-16] MEDS ORDERED: POTASSIUM CHLORIDE 20 mEq IN WATER 100ML 100 ML IV ONE (20:21)
[2023-12-16] MEDS: Lactated Ringers 1,000 ML IV ONE (20:27)
[2023-12-16] MEDS: POTASSIUM CHLORIDE 20 mEq IN WATER 100ML 20 MEQ/100 ML BAG IV ONE (20:28)
[2023-12-16 20:34] LABS: ADD URINE CULTURE? YES (NO); Appearance Cloudy (Clear); Bacteria Few /HPF (None Seen); Bilirubin Negative (Negative); Blood Large (Negative); Epithelial Cells Rare /HPF (None Seen); Glucose, Urine Negative (Negative); Hyaline Casts 0-2 /LPF (0-2); Ketones 15 (Negative); Leukocyte Esterase Moderate (Negative); Nitrite Negative (Negative); Ph 5.5 (4.6-8.0); Protein,Urine Dip 30 (Negative); RBC 51-100 /HPF (0-5); Specific Gravity 1.015 (1.005-1.030)
[2023-12-16 20:35] LABS: Amphetamine,Urine NEGATIVE (NEGATIVE); Barbiturate,Urine NEGATIVE (NEGATIVE); Benzodiazepine,Urine NEGATIVE (NEGATIVE); Cocaine,Urine NEGATIVE (NEGATIVE); Methadone,Urine NEGATIVE (NEGATIVE); Opiate,Urine NEGATIVE (NEGATIVE); PCP,Urine NEGATIVE (NEGATIVE); THC,Urine NEGATIVE (NEGATIVE)
[2023-12-16] MEDS: Lactated Ringers 500 ML IV SCH (22:41)
[2023-12-17] MEDS: PIPERACILLIN/TAZOBACTAM 3.375 GM in Sodium Chloride 100ML MINI-BAG PLUS 100 ML IV ONE (01:20)
[2023-12-17 01:25] VITALS: BP 143/103; PULSE 128; RESP 24; O2SAT 100
--- NOTE | 2023-12-17 08:55 | XRAY ---
Indication: Vomiting. Epigastric pain. Multiple contiguous axial images obtained through the abdomen and pelvis using 80 cc Isovue 370 contrast. Comparison: None Lung bases demonstrates minimal dependent atelectasis. No infiltrate or effusion. Heart is not enlarged. Visualized distal esophagus demonstrates mild circumferential wall thickening, possible esophagitis. Also tiny paraesophageal free air concerning for esophageal perforation. Noncontrasted stomach and bowel loops appear nonobstructed with normal appendix. Diffuse fatty liver. Mild distended gallbladder with 2.1 cm stone. No free fluid/air. Remaining liver, gallbladder, pancreas, spleen, adrenal glands, kidneys, ureters, bladder, uterus, and aorta are unremarkable. No pathologic retroperitoneal lymphadenopathy. Osseous structures intact. Impression: 1. Distal esophageal circumferential wall thickening. Rule out esophagitis. Also tiny paraesophageal free air concerning for esophageal perforation. 2. Mild distended gallbladder with gallstone. Sonogram may yield further information if clinically warranted. 3. Fatty liver.
== END 2023-12-16 23:30 | disposition left against medical advice (07) ==
LOC: ED 17:01
DX: K22.3 Perforation of esophagus (principal); R11.2 Nausea with vomiting, unspecified; Z79.899 Other long term (current) drug therapy; Z72.0 Tobacco use
CPT/HCPCS: 0241U; 36000; 36415; 74177; 80053; 80307; 81001; 82077; 83690; 83735; 84703; 85025; 87086; 93005; 96360; 96374; 96375; 99285; 99291; 96361; J1200; J1885; J2405; J3480

== ENCOUNTER 2023-12-17 10:30 | Inpatient (IN) | payer BC ==
--- NOTE | 2023-12-17 12:07 | ERPHSYRPT ---
- History of Present Illness Time Seen by Provider: 12/17/23 12:00 Source: patient Exam Limitations: no limitations Physician History: 33-year-old female presents to the emergency department as a return visit. Patient was in our ED yesterday for evaluation of nausea and vomiting with hematemesis. Workup revealed small periesophageal free air presumed esophageal rupture. Our physician contacted general surgeon Dr. Givens who advised transfer to higher level of care. Patient left AMA at that point. Patient is now here for further evaluation and treatment. No active pain. No nausea vomiting or diaphoresis. Patient voices no other complaints or concerns at this time. Portions of this note were created with voice recognition technology. There may be grammatical, spelling, punctuation or sound alike errors Timing/Duration: yesterday Severity: moderate Modifying Factors: Improves With: nothing Associated Symptoms: denies symptoms Allergies/Adverse Reactions: No Known Drug Allergies Allergy (Verified 12/17/23 12:00) Home Medications: Cholecalciferol (Vitamin D3) [Vitajoy Daily D] 25 mcg PO DAILY 12/16/23 [History] Fluoxetine HCl 20 mg [Prozac 20 MG] 20 mg PO DAILY 12/16/23 [History] Folic Acid 1 mg [Folate 1 mg] 1 mg PO DAILY 12/16/23 [History] Fluoxetine HCl 20 mg PO DAILY 12/17/23 [History] Thiamine Mononitrate (Vit B1) [Vitamin B-1] 100 mg PO DAILY 12/17/23 [History] Hx Tetanus, Diphtheria Vaccination/Date Given: Yes Hx Influenza Vaccination/Date Given: No Hx Pneumococcal Vaccination/Date Given: No Travel Risk - Vaccine Status Have you recieved a Covid-19 vaccination: No Gem Carver: Unknown - Vaccination Dates Dates if Unknown: 12/2020 - Review of Systems Constitutional: No Symptoms, No Fever, No Chills Eyes: No Symptoms Ears, Nose, & Throat: No Symptoms Respiratory: No Symptoms, No Cough, No Dyspnea Cardiac: No Symptoms, No Chest Pain, No Edema, No Syncope Abdominal/Gastrointestinal: No Symptoms, No Abdominal Pain, No Nausea, No Vomiting, No Diarrhea Genitourinary Symptoms: No Symptoms, No Dysuria Musculoskeletal: No Symptoms, No Back Pain, No Neck Pain Skin: No Symptoms, No Rash Neurological: No Symptoms, No Dizziness, No Focal Weakness, No Sensory Changes Psychological: No Symptoms Endocrine: No Symptoms Hematologic/Lymphatic: No Symptoms Immunological/Allergic: No Symptoms All Other Systems: Reviewed and Negative - Past Medical History Pertinent Past Medical History: Yes Neurological History: No Pertinent History ENT History: No Pertinent History Cardiac History: No Pertinent History Respiratory History: No Pertinent History Endocrine Medical History: No Pertinent History Musculoskeletal History: No Pertinent History GI Medical History: No Pertinent History History: No Pertinent History Psycho-Social History: Anxiety, Bipolar, Depression, Other Female Reproductive Disorders: No Pertinent History Other Medical History: mulitpersonality disorder - Past Surgical History Past Surgical History: No Neuro Surgical History: No Pertinent History Cardiac: No Pertinent History Respiratory: No Pertinent History Gastrointestinal: No Pertinent History Genitourinary: No Pertinent History Musculoskeletal: No Pertinent History Female Surgical History: No Pertinent History - Social History Smoking Status: Current every day smoker How long have you smoked: years Exposure to second hand smoke: Yes Drug Use: none Patient Lives Alone: No - Nursing Vital Signs Nursing Vital Signs: Initial Vital Signs Temperature 97.0 F 12/17/23 12:02 Pulse Rate 120 H 12/17/23 12:02 Respiratory Rate 18 12/17/23 12:02 Blood Pressure 143/116 12/17/23 12:02 O2 Sat by Pulse Oximetry 96 12/17/23 12:02 Pain Scale Pain Intensity 3 - Physical Exam General Appearance: no apparent distress, alert Eye Exam: PERRL/EOMI, eyes nml inspection Ears, Nose, Throat Exam: normal ENT inspection, TMs normal, pharynx normal, moist mucous membranes Neck Exam: normal inspection, non-tender, supple, full range of motion Respiratory Exam: normal breath sounds, lungs clear, No respiratory distress Cardiovascular Exam: regular rate/rhythm, normal heart sounds, normal peripheral pulses Gastrointestinal/Abdomen Exam: soft, normal bowel sounds, No tenderness, No mass Back Exam: normal inspection, normal range of motion, No CVA tenderness, No vertebral tenderness Extremity Exam: normal inspection, normal range of motion, pelvis stable Neurologic Exam: alert, oriented x 3, cooperative, normal mood/affect, nml cere bellar function, nml station & gait, sensation nml, No motor deficits Skin Exam: normal color, warm, dry, No rash Lymphatic Exam: No adenopathy SpO2 Interpretation: normal SpO2: 96 O2 Delivery: Room Air - Course Nursing assessment & vital signs reviewed: Yes Ordered Tests: Active Orders 24 hr Category Date Time Status IV Insertion STAT Care 12/17/23 12:14 Active CHEST WITHOUT CONTRAST [CT] Stat Exams 12/17/23 15:22 Completed CBC W DIFF Stat Lab 12/17/23 12:00 Completed CMP Stat Lab 12/17/23 12:00 Completed LIPASE Stat Lab 12/17/23 12:00 Completed TROPONIN Q4H Lab 12/17/23 12:00 Completed TROPONIN Q4H Lab 12/17/23 16:25 Completed TROPONIN Q4H Lab 12/17/23 20:15 Ordered Medication Summary Generic Name Dose Route Start Last Admin Trade Name Freq PRN Reason Stop Dose Admin Sodium Chloride 1,000 mls @ 999 mls/hr 12/17/23 12:15 12/17/23 15:56 Sodium Chloride 0.9% 1000 Ml IV 01/16/24 12:14 Not Given .Q1H1M DANE Discontinued Medications Generic Name Dose Route Start Last Admin Trade Name Freq PRN Reason Stop Dose Admin Piperacillin Sod/Tazobactam 100 mls @ 200 mls/hr 12/17/23 12:07 12/17/23 12: 21 Sod 3.375 gm/ Sodium Chloride IV 12/17/23 12:36 200 mls/hr STAT ONE Administration Sodium Chloride Confirm 12/17/23 12:17 Sodium Chloride 100ml Mini-Bag Plus Administered 12/17/23 12:18 Dose 100 mls @ ud IV .STK-MED ONE Ondansetron HCl 4 mg 12/17/23 12:15 12/17/23 12:21 Ondansetron Hcl 4 Mg/2 Ml Vial IV 12/17/23 12:16 4 mg STAT ONE Administration Ondansetron HCl Confirm 12/17/23 12:17 Ondansetron Hcl 4 Mg/2 Ml Vial Administered 12/17/23 12:18 Dose 4 mg .ROUTE .STK-MED ONE Ondansetron HCl 4 mg 12/17/23 16:21 12/17/23 16:24 Ondansetron Hcl 4 Mg/2 Ml Vial IV 12/17/23 16:22 4 mg STAT ONE Administration Ondansetron HCl Confirm 12/17/23 16:23 Ondansetron Hcl 4 Mg/2 Ml Vial Administered 12/17/23 16:24 Dose 4 mg .ROUTE .STK-MED ONE Piperacillin Sod/Tazobactam Sod Confirm 12/17/23 12:17 Piperacillin/Tazobactam Sodium 3.375 Gm Vial Administered 12/17/23 12:18 Dose 3.375 gm IV .STK-MED ONE Lab/Rad Data: Laboratory Result Diagrams 12/17/23 12:00 12/17/23 12:00 Laboratory Results 12/17/23 12/17/23 12/17/23 Range/Units 16:25 12:00 12:00 WBC (4.0-10.5) x10^3/uL RBC (4.1-5.4) x10^6/uL Hgb (12.0-16.0) g/dL Hct (35-47) % MCV (78-100) fL MCH (26-32) pg MCHC (32-36) g/dL RDW (11.5-14.0) % Plt Count (150-450) x10^3/uL MPV (7.5-11.0) fL Gran % (36.0-66.0) % Immature Gran % (Auto) (0.00-0.4) % Nucleat RBC Rel Count (0.00-0.1) % Eos # (Auto) (0-0.5) x10^3/uL Immature Gran # (Auto) (0.00-0.03) x10^3u/L Absolute Lymphs (auto) (1.0-4.6) x10^3/uL Absolute Monos (auto) (0.0-1.3) x10^3/uL Absolute Nucleated RBC (0.00-0.01) x10^3u/L Lymphocytes % (24.0-44.0) % Monocytes % (0.0-12.0) % Eosinophils % (0.00-5.0) % Basophils % (0.0-0.4) % Absolute Granulocytes (1.4-6.9) x10^3/uL Basophils # (0-0.4) x10^3/uL Sodium 137 (135-145) mmol/L Potassium 3.4 L (3.5-5.1) mmol/L Chloride 102 (98-107) mmol/L Carbon Dioxide 25 (22-30) mmol/L Anion Gap 14.3 (5-15) MEQ/L BUN 3 L (7-17) mg/dL Creatinine 0.64 (0.52-1.04) mg/dL Estimated GFR 118.9 ML/MIN Glucose 113 H (74-106) mg/dL Calcium 9.0 (8.4-10.2) mg/dL Total Bilirubin 2.00 H (0.2-1.3) mg/dL AST 220 H (14-36) U/L ALT 82 H (0-35) U/L Alkaline Phosphatase 173 H (38-126) U/L Troponin I < 0.012 < 0.012 (0.000-0.034) ng/mL Serum Total Protein 7.6 (6.3-8.2) g/dL Albumin 3.9 (3.5-5.0) g/dL Lipase 577 H (23-300) U/L 12/17/23 Range/Units 12:00 WBC 13.4 H (4.0-10.5) x10^3/uL RBC 4.92 (4.1-5.4) x10^6/uL Hgb 15.1 (12.0-16.0) g/dL Hct 45.7 (35-47) % MCV 92.9 (78-100) fL MCH 30.7 (26-32) pg MCHC 33.0 (32-36) g/dL RDW 14.4 H (11.5-14.0) % Plt Count 432 (150-450) x10^3/uL MPV 10.0 (7.5-11.0) fL Gran % 83.4 H (36.0-66.0) % Immature Gran % (Auto) 0.5 H (0.00-0.4) % Nucleat RBC Rel Count 0.0 (0.00-0.1) % Eos # (Auto) 0 (0-0.5) x10^3/uL Immature Gran # (Auto) 0.07 H (0.00-0.03) x10^3u/L Absolute Lymphs (auto) 1.32 (1.0-4.6) x10^3/uL Absolute Monos (auto) 0.79 (0.0-1.3) x10^3/uL Absolute Nucleated RBC 0.00 (0.00-0.01) x10^3u/L Lymphocytes % 9.8 L (24.0-44.0) % Monocytes % 5.9 (0.0-12.0) % Eosinophils % 0.0 (0.00-5.0) % Basophils % 0.4 (0.0-0.4) % Absolute Granulocytes 11.17 H (1.4-6.9) x10^3/uL Basophils # 0.06 (0-0.4) x10^3/uL Sodium (135-145) mmol/L Potassium (3.5-5.1) mmol/L Chloride (98-107) mmol/L Carbon Dioxide (22-30) mmol/L Anion Gap (5-15) MEQ/L BUN (7-17) mg/dL Creatinine (0.52-1.04) mg/dL Estimated GFR ML/MIN Glucose (74-106) mg/dL Calcium (8.4-10.2) mg/dL Total Bilirubin (0.2-1.3) mg/dL AST (14-36) U/L ALT (0-35) U/L Alkaline Phosphatase (38-126) U/L Troponin I (0.000-0.034) ng/mL Serum Total Protein (6.3-8.2) g/dL Albumin (3.5-5.0) g/dL Lipase (23-300) U/L - Progress Progress: improved Progress Note: I spoke to Dr. Romero CT surgeon at [facility] who advised we perform a CT chest with oral contrast as a esophagram to further assess the possibility of perforation. He reports that if the results are negative patient may be discharged home 12/17/23 15:24 CT esophagram completed. No extravasation of contrast. There is some free air throughout the mediastinum. CT surgeon at [facility] feels there is no need for transfer however we should complete another course of antibiotics control pain reassessed patient swallowing tomorrow patient is well per Dr. Mejia patient may be discharged and follow-up in his office as an outpatient. 12/17/23 17:36 Case discussed with hospitalist who accepts admission at 6 PM. Management discussed with patient. Patient agrees to admission to [facility] for further evaluation and treatment. Patient is a 33-year-old female presents to our ED as a return visit for evaluation of esophageal perforation. Patient was in our ED last night for the same. Patient left AMA at that time. Patient is here for further evaluation and treatment. After discussion with CT surgeon from [facility] patient just needs observation. No indication for transfer according to CT surgeon. CT surgeon also requests antibiotic administration which has already been administered. Patient to be observed in the hospital overnight. Will observe patient's symptoms. We administered antibiotics and if patient is well overnight patient may be discharged on oral antibiotics and followed up with Dr. Romero CT surgeon at [facility] Portions of this note were created with voice recognition technology. There may be grammatical, spelling, punctuation or sound alike errors Complexity of problem addressed is moderate acute complicated No critical care time Complexity of data reviewed and analyzed is extensive test ordered test reviewed. Results analyzed and correlated clinically with history and physical examination. Management discussed with CT surgeon, and hospitalist. Risk of complication and or risk of morbidity/mortality of patient management is high. Patient requires hospitalization for further evaluation and treatment. Vital stable. Time spent to admit patient is approximately 30 minutes. Plan of care established for shared decision making. No social determinants of health present impede follow-up. Portions of this note were created with voice recognition technology. There may be grammatical, spelling, punctuation or sound alike errors 12/17/23 18:09 Counseled pt/family regarding: lab results, diagnosis, rad results - Departure Departure Disposition: Observation Clinical Impression: Esophageal perforation, Pneumomediastinum, Chest pain Condition: Stable Critical Care Time: No Referrals: KIRSTIN VO [Primary Care Provider] - Follow up/PCP as directed
[2023-12-17] MEDS ORDERED: Zofran 4 MG/2 ML VIAL ONE ×2 (12:17→16:23)
[2023-12-17] MEDS ORDERED: Sodium Chloride 0.9% 1000 ML 1,000 ML ONE (12:17)
[2023-12-17] MEDS ORDERED: Sodium Chloride 100ML MINI-BAG PLUS 100 ML IV ONE (12:17)
[2023-12-17] MEDS ORDERED: PIPERACILLIN/TAZOBACTAM IV ONE (12:17)
[2023-12-17] MEDS: PIPERACILLIN/TAZOBACTAM 3.375 GM in Sodium Chloride 100ML MINI-BAG PLUS 100 ML IV ONE (12:21)
[2023-12-17] MEDS: Zofran 4 MG/2 ML VIAL IV ONE ×2 (12:21→16:24)
[2023-12-17] MEDS: Sodium Chloride 0.9% 1000 ML 1,000 ML IV SCH ×2 (12:21→22:22)
[2023-12-17 12:38] LABS: Absolute Neutrophil Ct (ANC) 11.17 x10^3/uL (1.4-6.9); BASOPHIL % 0.4 % (0.0-0.4); Basophil (Absolute #) 0.06 x10^3/uL (0-0.4); Eosinophil (Absolute #) 0 x10^3/uL (0-0.5); Hematocrit 45.7 % (35-47); Hemoglobin 15.1 g/dL (12.0-16.0); IMMATURE GRAN # 0.07 x10^3u/L (0.00-0.03); IMMATURE GRAN % 0.5 % (0.00-0.4); Lymphocyte (Absolute #) 1.32 x10^3/uL (1.0-4.6); Lymphocytes % 9.8 % (24.0-44.0); Mean Cell Volume 92.9 fL (78-100); Mean Corpuscular Hemoglobin 30.7 pg (26-32); Monocyte (Absolute #) 0.79 x10^3/uL (0.0-1.3); Monocytes % 5.9 % (0.0-12.0); Neutrophil % 83.4 % (36.0-66.0); Platelet Count 432 x10^3/uL (150-450); Red Blood Count 4.92 x10^6/uL (4.1-5.4); Red Cell Distribution Width 14.4 % (11.5-14.0); White Blood Count 13.4 x10^3/uL (4.0-10.5)
[2023-12-17 12:52] LABS: ALBUMIN 3.9 g/dL (3.5-5.0); ANION GAP 14.3 MEQ/L (5-15); Creatinine 1 0.64 mg/dL (0.52-1.04); EST GLOMERULAR FILTRATION RATE 118.9 ML/MIN; Potassium 3.4 mmol/L (3.5-5.1); Total Protein 7.6 g/dL (6.3-8.2)
--- NOTE | 2023-12-17 16:34 | XRAY ---
Indication: Abnormal CT abdomen/pelvis 1 day earlier. Esophageal perforation. Multiple contiguous axial images obtained through the chest using diluted Gastrografin contrast only. Sagittal and coronal reformatted images obtained. Comparison: None Mediastinum demonstrates tiny free air throughout. Subcarinal esophagus demonstrates tiny perforation anteriorly (image 22), approximately T7 level. No extravasation of enteric contrast. Heart not enlarged. Aorta is normal in course and caliber. No pathologic mediastinal lymphadenopathy. Lungs inflated and clear. Bony thorax intact with old right [address] abdomen/pelvis reported one day earlier. Impression: 1. Tiny perforation midesophagus with pneumomediastinum as detailed. 2. Remaining CT chest without contrast exam is negative.
[2023-12-17] MEDS ORDERED: TYLENOL 325 MG PO PRN (21:28)
--- NOTE | 2023-12-17 21:41 | PCM.HP ---
History of Present Illness - Chief Complaint Chief Complaint: Esophageal perforation, pneumomediastinum Date: 12/17/23 History of Present Illness: 33-year-old woman with a history of depression who presents with nausea, vomiting, and esophageal perforation. Patient had onset yesterday (Saturday) morning of severe nausea and vomiting, unable to tolerate any p.o., with frequent vomiting eventually progressing to bloody vomiting. No initial abdominal pain. She was in the emergency room, and had a CT abdomen pelvis that showed no abdominal findings but had evidence of possible small pockets of air around the esophagus suggestive of esophageal perforation. Patient was recommended for transfer to [facility], but patient left AGAINST MEDICAL ADVICE, as she was feeling better after receiving nausea medication. However, this morning she awoke, with continued nausea, although less than yesterday, and came back to the ER today. Her nausea and vomiting is markedly improved, and she is now tolerating clear liquids, although she has some bilateral subcostal as well as midepigastric pain, worsened after her dry cough. She has never had this kind of vomiting before. She notes that she had been drinking excessively on Saturday evening, she is unable to quantify exactly how much. She has never had problems in the past with alcoholic pancreatitis. She feels a lot better now, with no further nausea, and has a strong appetite currently. Upon patient's return to the ED, cardiothoracic surgeon Dr. Romero was called. Patient underwent CT chest with oral contrast, with no evidence of active extravasation, although small pockets of pneumomediastinum suggestive of prior esophageal perforation. Per Dr. Romero, no need for acute intervention. He recommended Zosyn for coverage of infection, observation overnight, and if the patient was able to tolerate p.o. by tomorrow, to discharge home with a course of antibiotics and follow-up with him as an outpatient. - Review of Systems Constitutional: No Fever, No Chills, No Lethargy, No Night Sweats Eyes: No Symptoms Respiratory: Cough (Nonproductive), No Short Of Breath, No Wheezing Cardiac: No Chest Pain, No Palpitations, No Orthopnea Abdominal/Gastrointestinal: Abdominal Pain (Bilateral mid epigastric and subcostal), Nausea, Vomiting, Hematemesis, No Diarrhea, No Constipation, No Hematochezia, No Melena, No Dysphagia Genitourinary Symptoms: No Dysuria, No Frequency, No Hematuria Musculoskeletal: No Symptoms All Other Systems: Reviewed and Negative Medications & Allergies Home Medications: Home Medication List Cholecalciferol (Vitamin D3) [Vitajoy Daily D] 25 mcg PO DAILY 12/16/23 [History Confirmed 12/17/23] Fluoxetine HCl 20 mg [Prozac 20 MG] 20 mg PO DAILY 12/16/23 [History Confirmed 12/17/23] Folic Acid 1 mg [Folate 1 mg] 1 mg PO DAILY 12/16/23 [History Confirmed 12/17/23] Fluoxetine HCl 20 mg PO DAILY 12/17/23 [History Confirmed 12/17/23] Thiamine Mononitrate (Vit B1) [Vitamin B-1] 100 mg PO DAILY 12/17/23 [History Confirmed 12/17/23] Allergies/Adverse Reactions: Allergies Allergy/AdvReac Type Severity Reaction Status Date / Time No Known Drug Allergies Allergy Verified 12/17/23 12:00 - Past Medical History Past Medical History: Yes Neurological History: Migraines ENT History: No Pertinent History Cardiac History: No Pertinent History Respiratory History: No Pertinent History Endocrine Medical History: No Pertinent History Musculoskelatal History: No Pertinent History GI Medical History: No Pertinent History History: No Pertinent History Pyscho-Social History: Anxiety, Bipolar, Depression, Other Reproductive Disorders: No Pertinent History Comment: mulitpersonality disorder - Female History Hx Last Menstrual Period: now Are you now?: No - Past Surgical History Past Surgical History: No Neuro Surgical History: No Pertinent History Cardiac History: No Pertinent History Respiratory Surgery: No Pertinent History GI Surgical History: No Pertinent History Genitourinary Surgical Hx: No Pertinent History Musculskeletal Surgical Hx: No Pertinent History Female Surgical History: No Pertinent History Significant Family History: no pertinent family hx - Social History Smoking Status: Current every day smoker How long have you smoked: years Exposure to second hand smoke: Yes Alcohol: Occasionally Drug Use: none - Social Determinants of Health Will the patient participate in the screening: Yes Do you worry about a steady place to live?: No Do you have any problems with any of the following?: No known problems In the past 12 months,have you had to go without utilities?: No Have you or anyone in your house had to go without enough: No Transportation Issues: No Has anyone in your support network made you feel unsafe?: No Does the patient want assistance with any of the above?: No - Physical Exam Vital Signs: Vital Signs - 24 hr Temp Pulse Resp BP BP Pulse Ox 12/17/23 19:57 97.1 F 98 H 18 148/103 98 12/17/23 19:00 137/104 12/17/23 18:30 158/117 98 12/17/23 18:14 96 12/17/23 17:30 147/119 12/17/23 17:00 16 147/111 12/17/23 16:30 138/112 12/17/23 16:25 99 12/17/23 16:11 99 12/17/23 15:30 70 18 144/113 99 12/17/23 15:29 98 12/17/23 15:20 90 L 12/17/23 15:19 76 16 92 L 12/17/23 14:30 141/106 12/17/23 14:00 142/107 97 12/17/23 13:30 147/107 98 12/17/23 13:00 136/107 99 12/17/23 12:02 97.0 F 120 H 18 143/116 96 GEN: Lying in bed in no acute distress NEURO: No focal deficits CV: Regular rate & rhythm, no murmurs, no edema PULM: Clear to auscultation bilaterally, no work of breathing, on room air ABD: Soft, non-distended, normoactive bowel sounds PSYCH: Alert, oriented x3 Results - Labs Lab/Micro Results: Lab Results-Last 24 Hours 12/17/23 12/17/23 12/17/23 Range/Units 12:00 12:00 12:00 WBC 13.4 H (4.0-10.5) x10^3/uL RBC 4.92 (4.1-5.4) x10^6/uL Hgb 15.1 (12.0-16.0) g/dL Hct 45.7 (35-47) % MCV 92.9 (78-100) fL MCH 30.7 (26-32) pg MCHC 33.0 (32-36) g/dL RDW 14.4 H (11.5-14.0) % Plt Count 432 (150-450) x10^3/uL MPV 10.0 (7.5-11.0) fL Gran % 83.4 H (36.0-66.0) % Immature Gran % (Auto) 0.5 H (0.00-0.4) % Nucleat RBC Rel Count 0.0 (0.00-0.1) % Eos # (Auto) 0 (0-0.5) x10^3/uL Immature Gran # (Auto) 0.07 H (0.00-0.03) x10^3u/L Absolute Lymphs (auto) 1.32 (1.0-4.6) x10^3/uL Absolute Monos (auto) 0.79 (0.0-1.3) x10^3/uL Absolute Nucleated RBC 0.00 (0.00-0.01) x10^3u/L Lymphocytes % 9.8 L (24.0-44.0) % Monocytes % 5.9 (0.0-12.0) % Eosinophils % 0.0 (0.00-5.0) % Basophils % 0.4 (0.0-0.4) % Absolute Granulocytes 11.17 H (1.4-6.9) x10^3/uL Basophils # 0.06 (0-0.4) x10^3/uL Sodium 137 (135-145) mmol/L Potassium 3.4 L (3.5-5.1) mmol/L Chloride 102 (98-107) mmol/L Carbon Dioxide 25 (22-30) mmol/L Anion Gap 14.3 (5-15) MEQ/L BUN 3 L (7-17) mg/dL Creatinine 0.64 (0.52-1.04) mg/dL Estimated GFR 118.9 ML/MIN Glucose 113 H (74-106) mg/dL Calcium 9.0 (8.4-10.2) mg/dL Total Bilirubin 2.00 H (0.2-1.3) mg/dL AST 220 H (14-36) U/L ALT 82 H (0-35) U/L Alkaline Phosphatase 173 H (38-126) U/L Troponin I < 0.012 (0.000-0.034) ng/mL Serum Total Protein 7.6 (6.3-8.2) g/dL Albumin 3.9 (3.5-5.0) g/dL Lipase 577 H (23-300) U/L 12/17/23 12/17/23 Range/Units 16:25 20:16 WBC (4.0-10.5) x10^3/uL RBC (4.1-5.4) x10^6/uL Hgb (12.0-16.0) g/dL Hct (35-47) % MCV (78-100) fL MCH (26-32) pg MCHC (32-36) g/dL RDW (11.5-14.0) % Plt Count (150-450) x10^3/uL MPV (7.5-11.0) fL Gran % (36.0-66.0) % Immature Gran % (Auto) (0.00-0.4) % Nucleat RBC Rel Count (0.00-0.1) % Eos # (Auto) (0-0.5) x10^3/uL Immature Gran # (Auto) (0.00-0.03) x10^3u/L Absolute Lymphs (auto) (1.0-4.6) x10^3/uL Absolute Monos (auto) (0.0-1.3) x10^3/uL Absolute Nucleated RBC (0.00-0.01) x10^3u/L Lymphocytes % (24.0-44.0) % Monocytes % (0.0-12.0) % Eosinophils % (0.00-5.0) % Basophils % (0.0-0.4) % Absolute Granulocytes (1.4-6.9) x10^3/uL Basophils # (0-0.4) x10^3/uL Sodium (135-145) mmol/L Potassium (3.5-5.1) mmol/L Chloride (98-107) mmol/L Carbon Dioxide (22-30) mmol/L Anion Gap (5-15) MEQ/L BUN (7-17) mg/dL Creatinine (0.52-1.04) mg/dL Estimated GFR ML/MIN Glucose (74-106) mg/dL Calcium (8.4-10.2) mg/dL Total Bilirubin (0.2-1.3) mg/dL AST (14-36) U/L ALT (0-35) U/L Alkaline Phosphatase (38-126) U/L Troponin I < 0.012 < 0.012 (0.000-0.034) ng/mL Serum Total Protein (6.3-8.2) g/dL Albumin (3.5-5.0) g/dL Lipase (23-300) U/L - Radiology Impressions Radiology Exams & Impressions: Radiology Procedures Category Date Time Status CHEST WITHOUT CONTRAST [CT] Stat Exams 12/17/23 15:[address] chest mediastinum demonstrates tiny free air throughout. Subcarinal esophagus demonstrates tiny perforation anteriorly. No extravasation of enteric contrast. No pathologic mediastinal lymphadenopathy. Assessment/Plan (1) Esophageal perforation Current Visit: Yes Status: Acute Assessment & Plan: 33-year-old woman with history of anxiety and depression, here with minor controlled esophageal perforation is likely alcoholic pancreatitis. ## Esophageal perforation with small amounts of pneumomediastinum, but no active extravasation of oral contrast on CT chest. Case was discussed by ED physician with CT surgery at [facility], Dr. Romero, and no need for acute intervention. However, some concern for infection, especially given leukocytosis yesterday, although this is improving today. This might also be caused by the underlying reason for the nausea (see below). However, patient is stable, normal vitals except for hypertension, and no worsening of the [address] hours since her initial CT scan done on Friday 12/15. Continue Zosyn, with plan for outpatient course of oral antibiotics if discharging home Observe overnight for 24 hours to ensure not worsening Continue clear liquid diet, but advance to bland diet tomorrow morning if doing well Plan for follow-up as an outpatient with Dr. Romero ## Likely alcoholic pancreatitis patient with elevated lipase today, worse than yesterday, and with heavy binge drinking on Saturday evening. Also has associated elevated transaminases, although both of these are improving from yesterday. Symptomatically, patient has no further nausea, and has an appetite today, after essentially not eating for the last 36 hours. Continue on clear liquid diet Advance diet as tolerated tomorrow morning Counseled on limiting binge drinking in the future ## Elevated blood pressure elevated diastolic blood pressure, likely in the setting of anxiety and acute illness. Start hydralazine 25 mg PRN SBP greater than 160 or DBP greater than 100 ## Anxiety and depression Continue home Prozac CODE STATUS DNR, per patient request Diet: Clear liquid for now, advance as tolerated Prophylaxis: None given short stay, low risk patient, encourage ambulation Dispo: Admit under observation Code(s): K22.3 - PERFORATION OF ESOPHAGUS Telemedicine Encounter - Telemedicine Encounter Telemedicine Encounter: The entirety of this encounter was performed via Telemedicine"
[2023-12-17] MEDS: Zofran 4 MG/2 ML VIAL IV PRN (23:00)
[2023-12-17] MEDS: MORPHINE SULFATE 4 MG INJ IV PRN (23:15)
[2023-12-18] MEDS ORDERED: PIPERACILLIN/TAZOBACTAM IV ONE ×2 (00:39→06:24)
[2023-12-18] MEDS ORDERED: Sodium Chloride 100ML MINI-BAG PLUS 100 ML IV ONE ×2 (00:40→06:24)
[2023-12-18] MEDS: PIPERACILLIN/TAZOBACTAM 3.375 GM in Sodium Chloride 100ML MINI-BAG PLUS 100 ML IV SCH (00:45)
[2023-12-18] MEDS: Apresoline 25 MG TABLET PO PRN (04:14)
[2023-12-18 04:48] LABS: Absolute Neutrophil Ct (ANC) 7.48 x10^3/uL (1.4-6.9); BASOPHIL % 0.6 % (0.0-0.4); Basophil (Absolute #) 0.06 x10^3/uL (0-0.4); Eosinophil % 0.2 % (0.00-5.0); Eosinophil (Absolute #) 0.02 x10^3/uL (0-0.5); Hematocrit 41.2 % (35-47); Hemoglobin 13.5 g/dL (12.0-16.0); IMMATURE GRAN # 0.06 x10^3u/L (0.00-0.03); IMMATURE GRAN % 0.6 % (0.00-0.4); Lymphocyte (Absolute #) 2.09 x10^3/uL (1.0-4.6); Lymphocytes % 19.7 % (24.0-44.0); Mean Corpuscular Hemoglobin 30.5 pg (26-32); Mean Corpuscular Hgb Concent. 32.8 g/dL (32-36); Mean Platelet Volume 9.7 fL (7.5-11.0); Monocyte (Absolute #) 0.88 x10^3/uL (0.0-1.3); Monocytes % 8.3 % (0.0-12.0); Neutrophil % 70.6 % (36.0-66.0); Platelet Count 350 x10^3/uL (150-450); Red Blood Count 4.43 x10^6/uL (4.1-5.4); Red Cell Distribution Width 14.1 % (11.5-14.0); White Blood Count 10.6 x10^3/uL (4.0-10.5)
[2023-12-18 05:06] LABS: ALBUMIN 3.3 g/dL (3.5-5.0); ANION GAP 11.9 MEQ/L (5-15); BILIRUBIN,TOTAL 1.7 mg/dL (0.2-1.3); Calcium 8.1 mg/dL (8.4-10.2); Creatinine 1 0.61 mg/dL (0.52-1.04); EST GLOMERULAR FILTRATION RATE 120.2 ML/MIN; Potassium 3.5 mmol/L (3.5-5.1); Total Protein 6.4 g/dL (6.3-8.2)
[2023-12-18] MEDS: Compazine 10 MG/2 ML IV PRN (09:09)
[2023-12-18] MEDS: Hydromorphone 1 mg/ml Injection IV PRN (09:13)
--- NOTE | 2023-12-18 10:12 | PCM.NOTE ---
Date and Time: 12/18/23 1006 Subjective Assessment: HPI: 33-year-old woman with a history of depression who presents with nausea, vomiting, and esophageal perforation. Patient had onset yesterday (Saturday) morning of severe nausea and vomiting, unable to tolerate any p.o., with frequent vomiting eventually progressing to bloody vomiting. No initial abdominal pain. She was in the emergency room, and had a CT abdomen pelvis that showed no abdominal findings but had evidence of possible small pockets of air around the esophagus suggestive of esophageal perforation. Patient was recommended for transfer to [facility], but patient left AGAINST MEDICAL ADVICE, as she was feeling better after receiving nausea medication. However, this morning she awoke, with continued nausea, although less than yesterday, and came back to the ER today. Her nausea and vomiting is markedly improved, and she is now tolerating clear liquids, although she has some bilateral subcostal as well as midepigastric pain, worsened after her dry cough. She has never had this kind of vomiting before. She notes that she had been drinking excessively on Saturday evening, she is unable to quantify exactly how much. She has never had problems in the past with alcoholic pancreatitis. She feels a lot better now, with no further nausea, and has a strong appetite currently.Upon patient's return to the ED, cardiothoracic surgeon Dr. Romero was called. Patient underwent CT chest with oral contrast, with no evidence of active extravasation, although small pockets of pneumomediastinum suggestive of prior esophageal perforation. CT abd/pelvis from 12/16/23 showing Impression distal esophageal circumferential wall thickening. Also tiny paraesophageal free air concerning for esophageal perforation.Mild distended gallbladder with gallstone. Fatty liver. Per Dr. Romero, no need for acute intervention. He recommended Zosyn for coverage of infection, observation overnight, and if the patient was able to tolerate p.o. by tomorrow, to discharge home with a course of antibiotics and follow-up with him as an outpatient. 12/18/23: Met with patient bedside. Endorses continued nausea and vomiting. Unable to tolerate a diet. Nausea medications are helping some. Discussed labwork showing elevation in lipase now >2000 and gallstones noted on CT from 12/16/23. I feel that her nausea and vomiting are most likely related to pancreatitis from recent excessive alcohol consumption. Plan for US abdomen and surgical consult for gallstones noted on CT. Patient initally requesting transfer but now is agreeable to plan. Denies fever,cough, sob, cp, abdominal pain, SLAUGHTER, dizziness, or Diarrhea. <CLOVIS PATRICIO - Last Filed: 12/18/23 13:41> Date and Time: 12/18/232217 <TOO THRASHER - Last Filed: 12/18/23 22:20> - Review of Systems Constitutional: No Symptoms Eyes: No Symptoms Ears, Nose, & Throat: No Symptoms Respiratory: No Symptoms Cardiac: No Symptoms Abdominal/Gastrointestinal: Nausea, Vomiting Genitourinary Symptoms: No Symptoms Musculoskeletal: No Symptoms Skin: No Symptoms Neurological: No Symptoms Psychological: No Symptoms Endocrine: No Symptoms Hematologic/Lymphatic: No Symptoms Immunological/Allergic: No Symptoms <CLOVIS PATRICIO - Last Filed: 12/18/23 13:41> Objective Exam General Appearance: mild distress Neurologic Exam: alert, oriented x 3, cooperative Skin Exam: normal color Eye Exam: PERRL Ears, Nose, Throat Exam: normal ENT inspection Neck Exam: normal inspection Lymphatic Exam: adenopathy Respiratory Exam: normal breath sounds, lungs clear Cardiovascular Exam: regular rate/rhythm, normal heart sounds Gastrointestinal/Abdomen Exam: soft, normal bowel sounds Extremity Exam: normal inspection Back Exam: normal inspection Pelvic Exam: deferred Rectal Exam: deferred <CLOVIS PATRICIO - Last Filed: 12/18/23 13:41> Objective Data Vital Signs: Vital Signs - 24 hr Temp Pulse Resp BP BP Pulse Ox 12/18/23 07:00 97.6 F 94 H 16 151/94 95 12/18/23 04:00 98.0 F 88 16 163/110 98 12/18/23 00:00 97.7 F 84 16 139/95 99 12/17/23 19:57 97.1 F 98 H 18 148/103 98 12/17/23 19:00 137/104 12/17/23 18:30 158/117 98 12/17/23 18:14 96 12/17/23 17:30 147/119 12/17/23 17:00 16 147/111 12/17/23 16:30 138/112 12/17/23 16:25 99 12/17/23 16:11 99 12/17/23 15:30 70 18 144/113 99 12/17/23 15:29 98 12/17/23 15:20 90 L 12/17/23 15:19 76 16 92 L 12/17/23 14:30 141/106 12/17/23 14:00 142/107 97 12/17/23 13:30 147/107 98 12/17/23 13:00 136/107 99 12/17/23 12:02 97.0 F 120 H 18 143/116 96 Pain Assessment - Last Documented Pain Intensity 10 Pain Scale Used 0-10 Pain Scale Intake and Output: Intake & Output 12/15/23 12/16/23 12/17/23 12/18/23 11:59 11:59 11:59 11:59 Intake Total 1232 Output Total 300 Balance 932 Weight 63.8 kg Lab Results: Lab Results-Last 24 Hours 12/17/23 12/17/23 12/17/23 Range/Units 12:00 12:00 12:00 WBC 13.4 H (4.0-10.5) x10^3/uL RBC 4.92 (4.1-5.4) x10^6/uL Hgb 15.1 (12.0-16.0) g/dL Hct 45.7 (35-47) % MCV 92.9 (78-100) fL MCH 30.7 (26-32) pg MCHC 33.0 (32-36) g/dL RDW 14.4 H (11.5-14.0) % Plt Count 432 (150-450) x10^3/uL MPV 10.0 (7.5-11.0) fL Gran % 83.4 H (36.0-66.0) % Immature Gran % (Auto) 0.5 H (0.00-0.4) % Nucleat RBC Rel Count 0.0 (0.00-0.1) % Eos # (Auto) 0 (0-0.5) x10^3/uL Immature Gran # (Auto) 0.07 H (0.00-0.03) x10^3u/L Absolute Lymphs (auto) 1.32 (1.0-4.6) x10^3/uL Absolute Monos (auto) 0.79 (0.0-1.3) x10^3/uL Absolute Nucleated RBC 0.00 (0.00-0.01) x10^3u/L Lymphocytes % 9.8 L (24.0-44.0) % Monocytes % 5.9 (0.0-12.0) % Eosinophils % 0.0 (0.00-5.0) % Basophils % 0.4 (0.0-0.4) % Absolute Granulocytes 11.17 H (1.4-6.9) x10^3/uL Basophils # 0.06 (0-0.4) x10^3/uL Sodium 137 (135-145) mmol/L Potassium 3.4 L (3.5-5.1) mmol/L Chloride 102 (98-107) mmol/L Carbon Dioxide 25 (22-30) mmol/L Anion Gap 14.3 (5-15) MEQ/L BUN 3 L (7-17) mg/dL Creatinine 0.64 (0.52-1.04) mg/dL Estimated GFR 118.9 ML/MIN Glucose 113 H (74-106) mg/dL Calcium 9.0 (8.4-10.2) mg/dL Total Bilirubin 2.00 H (0.2-1.3) mg/dL AST 220 H (14-36) U/L ALT 82 H (0-35) U/L Alkaline Phosphatase 173 H (38-126) U/L Troponin I < 0.012 (0.000-0.034) ng/mL Serum Total Protein 7.6 (6.3-8.2) g/dL Albumin 3.9 (3.5-5.0) g/dL Lipase 577 H (23-300) U/L 12/17/23 12/17/23 12/18/23 Range/Units 16:25 20:16 04:45 WBC 10.6 H (4.0-10.5) x10^3/uL RBC 4.43 (4.1-5.4) x10^6/uL Hgb 13.5 (12.0-16.0) g/dL Hct 41.2 (35-47) % MCV 93.0 (78-100) fL MCH 30.5 (26-32) pg MCHC 32.8 (32-36) g/dL RDW 14.1 H (11.5-14.0) % Plt Count 350 (150-450) x10^3/uL MPV 9.7 (7.5-11.0) fL Gran % 70.6 H (36.0-66.0) % Immature Gran % (Auto) 0.6 H (0.00-0.4) % Nucleat RBC Rel Count 0.0 (0.00-0.1) % Eos # (Auto) 0.02 (0-0.5) x10^3/uL Immature Gran # (Auto) 0.06 H (0.00-0.03) x10^3u/L Absolute Lymphs (auto) 2.09 (1.0-4.6) x10^3/uL Absolute Monos (auto) 0.88 (0.0-1.3) x10^3/uL Absolute Nucleated RBC 0.00 (0.00-0.01) x10^3u/L Lymphocytes % 19.7 L (24.0-44.0) % Monocytes % 8.3 (0.0-12.0) % Eosinophils % 0.2 (0.00-5.0) % Basophils % 0.6 (0.0-0.4) % Absolute Granulocytes 7.48 H (1.4-6.9) x10^3/uL Basophils # 0.06 (0-0.4) x10^3/uL Sodium (135-145) mmol/L Potassium (3.5-5.1) mmol/L Chloride (98-107) mmol/L Carbon Dioxide (22-30) mmol/L Anion Gap (5-15) MEQ/L BUN (7-17) mg/dL Creatinine (0.52-1.04) mg/dL Estimated GFR ML/MIN Glucose (74-106) mg/dL Calcium (8.4-10.2) mg/dL Total Bilirubin (0.2-1.3) mg/dL AST (14-36) U/L ALT (0-35) U/L Alkaline Phosphatase (38-126) U/L Troponin I < 0.012 < 0.012 (0.000-0.034) ng/mL Serum Total Protein (6.3-8.2) g/dL Albumin (3.5-5.0) g/dL Lipase (23-300) U/L 12/18/23 Range/Units 04:45 WBC (4.0-10.5) x10^3/uL RBC (4.1-5.4) x10^6/uL Hgb (12.0-16.0) g/dL Hct (35-47) % MCV (78-100) fL MCH (26-32) pg MCHC (32-36) g/dL RDW (11.5-14.0) % Plt Count (150-450) x10^3/uL MPV (7.5-11.0) fL Gran % (36.0-66.0) % Immature Gran % (Auto) (0.00-0.4) % Nucleat RBC Rel Count (0.00-0.1) % Eos # (Auto) (0-0.5) x10^3/uL Immature Gran # (Auto) (0.00-0.03) x10^3u/L Absolute Lymphs (auto) (1.0-4.6) x10^3/uL Absolute Monos (auto) (0.0-1.3) x10^3/uL Absolute Nucleated RBC (0.00-0.01) x10^3u/L Lymphocytes % (24.0-44.0) % Monocytes % (0.0-12.0) % Eosinophils % (0.00-5.0) % Basophils % (0.0-0.4) % Absolute Granulocytes (1.4-6.9) x10^3/uL Basophils # (0-0.4) x10^3/uL Sodium 134 L (135-145) mmol/L Potassium 3.5 (3.5-5.1) mmol/L Chloride 102 (98-107) mmol/L Carbon Dioxide 24 (22-30) mmol/L Anion Gap 11.9 (5-15) MEQ/L BUN 6 L (7-17) mg/dL Creatinine 0.61 (0.52-1.04) mg/dL Estimated GFR 120.2 ML/MIN Glucose 101 (74-106) mg/dL Calcium 8.1 L (8.4-10.2) mg/dL Total Bilirubin 1.70 H (0.2-1.3) mg/dL AST 127 H (14-36) U/L ALT 60 H (0-35) U/L Alkaline Phosphatase 131 H (38-126) U/L Troponin I (0.000-0.034) ng/mL Serum Total Protein 6.4 (6.3-8.2) g/dL Albumin 3.3 L (3.5-5.0) g/dL Lipase (23-300) U/L Radiology Exams: Radiology Procedures Category Date Time Status CHEST WITHOUT CONTRAST [CT] Stat Exams 12/17/23 15:22 Completed <CLOVIS PATRICIO - Last Filed: 12/18/23 13:41> Vital Signs: Vital Signs - 24 hr Temp Pulse Resp BP Pulse Ox 12/18/23 20:00 98.1 F 100 H 16 137/94 97 12/18/23 16:00 97.2 F 69 16 124/81 96 12/18/23 11:22 113 H 16 158/99 94 L 12/18/23 07:00 97.6 F 94 H 16 151/94 95 12/18/23 04:00 98.0 F 88 16 163/110 98 12/18/23 00:00 97.7 F 84 16 139/95 99 Pain Assessment - Last Documented Pain Intensity 5 Pain Scale Used 0-10 Pain Scale Intake and Output: Intake & Output 12/16/23 12/17/23 12/18/23 12/19/23 11:59 11:59 11:59 11:59 Intake Total 1232 1501 Output Total 300 Balance 932 1501 Weight 63.8 kg Lab Results: Lab Results-Last 24 Hours 12/18/23 12/18/23 12/18/23 Range/Units 04:45 04:45 04:45 WBC 10.6 H (4.0-10.5) x10^3/uL RBC 4.43 (4.1-5.4) x10^6/uL Hgb 13.5 (12.0-16.0) g/dL Hct 41.2 (35-47) % MCV 93.0 (78-100) fL MCH 30.5 (26-32) pg MCHC 32.8 (32-36) g/dL RDW 14.1 H (11.5-14.0) % Plt Count 350 (150-450) x10^3/uL MPV 9.7 (7.5-11.0) fL Gran % 70.6 H (36.0-66.0) % Immature Gran % (Auto) 0.6 H (0.00-0.4) % Nucleat RBC Rel Count 0.0 (0.00-0.1) % Eos # (Auto) 0.02 (0-0.5) x10^3/uL Immature Gran # (Auto) 0.06 H (0.00-0.03) x10^3u/L Absolute Lymphs (auto) 2.09 (1.0-4.6) x10^3/uL Absolute Monos (auto) 0.88 (0.0-1.3) x10^3/uL Absolute Nucleated RBC 0.00 (0.00-0.01) x10^3u/L Lymphocytes % 19.7 L (24.0-44.0) % Monocytes % 8.3 (0.0-12.0) % Eosinophils % 0.2 (0.00-5.0) % Basophils % 0.6 (0.0-0.4) % Absolute Granulocytes 7.48 H (1.4-6.9) x10^3/uL Basophils # 0.06 (0-0.4) x10^3/uL Sodium 134 L (135-145) mmol/L Potassium 3.5 (3.5-5.1) mmol/L Chloride 102 (98-107) mmol/L Carbon Dioxide 24 (22-30) mmol/L Anion Gap 11.9 (5-15) MEQ/L BUN 6 L (7-17) mg/dL Creatinine 0.61 (0.52-1.04) mg/dL Estimated GFR 120.2 ML/MIN Glucose 101 (74-106) mg/dL Calcium 8.1 L (8.4-10.2) mg/dL Total Bilirubin 1.70 H (0.2-1.3) mg/dL AST 127 H (14-36) U/L ALT 60 H (0-35) U/L Alkaline Phosphatase 131 H (38-126) U/L Serum Total Protein 6.4 (6.3-8.2) g/dL Albumin 3.3 L (3.5-5.0) g/dL Lipase 2125 H (23-300) U/L Radiology Exams: Radiology Procedures Category Date Time Status ABDOMINAL-LIMITED [US] Urgent Exams 12/18/23 12:51 Completed CHEST WITHOUT CONTRAST [CT] Stat Exams 12/17/23 15:22 Completed <TOO THRASHER - Last Filed: 12/18/23 22:20> Assessment/Plan (1) Esophageal perforation Current Visit: Yes Status: Acute Assessment & Plan: 33-year-old woman with history of anxiety and depression, here with minor controlled esophageal perforation is likely alcoholic pancreatitis. with small amounts of pneumomediastinum, but no active extravasation of oral contrast on CT chest. Case was [facility], and no need for acute intervention. However, some concern for infection, especially given leukocytosis yesterday, although this is improving today. This might also be caused by the underlying reason for the nausea (see below). However, patient is stable, normal vitals except for hypertension, and no worsening of the [address] hours since her initial CT scan done on Friday 12/15. Continue Zosyn, with plan for outpatient course of oral antibiotics if discharging home Observe overnight for 24 hours to ensure not worsening Continue clear liquid diet, but advance to bland diet tomorrow morning if doing well Plan for follow-up as an outpatient with Dr. Romero 12/18/23: -unable to advance diet -add compazine for N/V -Cotinue Zosyn/IVF Code(s): K22.3 - PERFORATION OF ESOPHAGUS (2) Pancreatitis Current Visit: Yes Status: Acute Assessment & Plan: -Likely alcoholic pancreatitis patient with elevated lipase today, worse than yesterday, and with heavy binge drinking on Saturday evening. Also has associated elevated transaminases, although both of these are improving from yesterday. Symptomatically, patient has no further nausea, and has an appetite today, after essentially not eating for the last 36 hours. Continue on clear liquid diet Advance diet as tolerated tomorrow morning Counseled on limiting binge drinking in the future 12/17: -most likely source of n/v -LFTs continue to improve -Lipase now > 2000 -unable to advance diet, continue CLD for now, patient states she is tolerating clears -add compazine -IVF Code(s): K85.90 - ACUTE PANCREATITIS WITHOUT NECROSIS OR INFECTION, UNSP (3) HTN (hypertension) Current Visit: Yes Status: Acute Assessment & Plan: elevated diastolic blood pressure, likely in the setting of anxiety and acute illness. Start hydralazine 25 mg PRN SBP greater than 160 or DBP greater than 100 Code(s): I10 - ESSENTIAL (PRIMARY) HYPERTENSION (4) Anxiety and depression Current Visit: Yes Status: Acute Assessment & Plan: Continue home Prozac CODE STATUS DNR, per patient request Diet: Clear liquid for now, advance as tolerated Prophylaxis: None given short stay, low risk patient, encourage ambulation Dispo: Admit under observation Code(s): F41.9 - ANXIETY DISORDER, UNSPECIFIED; F32.A - DEPRESSION, UNSPECIFIED (5) Cholelithiases Current Visit: Yes Status: Acute Assessment & Plan: -as noted on CT scan -US RUQ -Surg consult <CLOVIS PATRICIO - Last Filed: 12/18/23 13:41> CHIRAG Encounter - CHIRAG Encounter Attestation CHIRAG Encounter Attestation: "GPOAL Lira andhavediscussed pertinent aspects of their care with Clovis Patricio and agree with the history, physical exam (any modifications based on my personal exam will be noted below), assessment, and plan as outlined in original note. Please see immediately below for my summary of findings and additional assessment and plan along with any meaningful corrections/explanations to the Subjective/Objective portions of the CHIRAG note will be noted." My portion of the encounter took place via telemedicine. -esophargeal microperf with pneumomediastinum: clinically stable with no difficulty breathing or chest pain -N/V with epigastric pain, elevated bili, gallstones on CT and elevated lipase. Likely alcoholic pancreatitis however can not rule out symptomatic gallstones. Clear liquids, IVF, antiemetic, RUQ US and surgery consult. <TOO THRASHER - Last Filed: 12/18/23 22:20>
[2023-12-18] MEDS: Prozac 20 MG PO SCH (11:26)
--- NOTE | 2023-12-18 15:23 | XRAY ---
Indication: Right upper quadrant pain. Two-dimensional right upper quadrant abdominal sonogram performed. Comparison: None Visualized liver demonstrates mild diffuse fatty echogenicity. No focal solid/cystic hepatic mass or free fluid. Visualized gallbladder normally distended with a few small gallstones in the dependent portion, largest 2.5 cm. No abnormal gallbladder wall thickening or pericholecystic fluid. Common bile duct measures 4.7 mm. No intrahepatic biliary distention. Remaining visualized pancreas and right kidney are sonographically unremarkable. Right kidney measures 10.4 x 3.7 x 4.3 cm. Impression: 1. Cholelithiasis without cholecystitis or biliary distention.. 2. Fatty liver.
[2023-12-19 05:18] LABS: Absolute Neutrophil Ct (ANC) 6.53 x10^3/uL (1.4-6.9); BASOPHIL % 0.6 % (0.0-0.4); Basophil (Absolute #) 0.06 x10^3/uL (0-0.4); Eosinophil % 1.7 % (0.00-5.0); Eosinophil (Absolute #) 0.16 x10^3/uL (0-0.5); Hematocrit 42.1 % (35-47); Hemoglobin 13.3 g/dL (12.0-16.0); IMMATURE GRAN # 0.04 x10^3u/L (0.00-0.03); IMMATURE GRAN % 0.4 % (0.00-0.4); Lymphocytes % 21.1 % (24.0-44.0); Mean Cell Volume 94.2 fL (78-100); Mean Corpuscular Hemoglobin 29.8 pg (26-32); Mean Corpuscular Hgb Concent. 31.6 g/dL (32-36); Mean Platelet Volume 10.1 fL (7.5-11.0); Monocytes % 7.4 % (0.0-12.0); Neutrophil % 68.8 % (36.0-66.0); Platelet Count 299 x10^3/uL (150-450); Red Blood Count 4.47 x10^6/uL (4.1-5.4); Red Cell Distribution Width 14.2 % (11.5-14.0); White Blood Count 9.5 x10^3/uL (4.0-10.5)
[2023-12-19 05:30] LABS: ANION GAP 10.2 MEQ/L (5-15); Calcium 8.1 mg/dL (8.4-10.2); Creatinine 1 0.57 mg/dL (0.52-1.04); EST GLOMERULAR FILTRATION RATE 122.2 ML/MIN; Potassium 3.1 mmol/L (3.5-5.1)
--- NOTE | 2023-12-19 10:17 | CONS ---
CONSULT DATE: 12/19/2023 HOSPITAL COURSE: Apparently Miss Sanders was admitted initially with esophageal perforation. She went home AMA. She subsequently came back and now she has diagnosis of pancreatitis and esophageal perforation. She was seen and examined at the bedside. Apparently the last 24 hours she looks dramatically better. She was given Unasyn IV and NPO. She did have a CT scan of her chest. She has a small, limited esophageal perforation per her CT scan with trace mediastinal air. She has gallstones. She did not have any obvious inflammatory changes of the gallbladder. She had a bilirubin up to 2 and down to 1.7 now and she had an amylase of 2,000 consistent with pancreatitis. She did have a very heavy drinking binge last weekend on Saturday. She had not had pancreatitis before with alcohol so this episode could be from alcohol or it could be from passing a small stone. She also incidentally has a fatty liver. This was all discussed with her at bedside. She was sitting conversing, looking and feeling much better. She really felt quite under the weather but now she is actually fairly vigorous. With her amylase of 2,000, we made consideration for cholecystectomy. We will repeat labs tomorrow and we will recheck the status of her esophagus here somehow at some time.
--- NOTE | 2023-12-19 11:08 | PCM.NOTE ---
Date and Time: 12/19/23 1108 Subjective Assessment: HPI: 33-year-old woman with a history of depression who presents with nausea, vomiting, and esophageal perforation. Patient had onset yesterday (Saturday) morning of severe nausea and vomiting, unable to tolerate any p.o., with frequent vomiting eventually progressing to bloody vomiting. No initial abdomina l pain. She was in the emergency room, and had a CT abdomen pelvis that showed no abdominal findings but had evidence of possible small pockets of air around the esophagus suggestive of esophageal perforation. Patient was recommended for transfer to [facility], but patient left AGAINST MEDICAL ADVICE, as she was feeling better after receiving nausea medication. However, this morning she awoke, with continued nausea, although less than yesterday, and came back to the ER today. Her nausea and vomiting is markedly improved, and she is now tolerating clear liquids, although she has some bilateral subcostal as well as midepigastric pain, worsened after her dry cough. She has never had this kind of vomiting before. She notes that she had been drinking excessively on Saturday evening, she is unable to quantify exactly how much. She has never had problems in the past with alcoholic pancreatitis. She feels a lot better now, with no further nausea, and has a strong appetite currently.Upon patient's return to the ED, cardiothoracic surgeon Dr. Romero was called. Patient underwent CT chest with oral contrast, with no evidence of active extravasation, although small pockets of pneumomediastinum suggestive of prior esophageal perforation. CT abd/pelvis from 12/16/23 showing Impression distal esophageal circumferential wall thickening. Also tiny paraesophageal free air concerning for esophageal perforation.Mild distended gallbladder with gallstone. Fatty liver. Per Dr. Romero, no need for acute intervention. He recommended Zosyn for coverage of infection, observation overnight, and if the patient was able to tolerate p.o. by tomorrow, to discharge home with a course of antibiotics and follow-up with him as an outpatient. 12/18/23: Met with patient bedside. Endorses continued nausea and vomiting. Unable to tolerate a diet. Nausea medications are helping some. Discussed labwork showing elevation in lipase now >2000 and gallstones noted on CT from 12/16/23. I feel that her nausea and vomiting are most likely related to pancreatitis from recent excessive alcohol consumption. Plan for US abdomen and surgical consult for gallstones noted on CT. Patient initally requesting transfer but now is agreeable to plan. Denies fever,cough, sob, cp, abdominal pain, SLAUGHTER, dizziness, or Diarrhea. - Review of Systems Constitutional: No Fever, No Chills Eyes: No Symptoms Ears, Nose, & Throat: No Symptoms Respiratory: No Cough, No Short Of Breath Cardiac: No Chest Pain, No Edema, No Syncope Abdominal/Gastrointestinal: Abdominal Pain, Nausea, No Vomiting Genitourinary Symptoms: No Dysuria Musculoskeletal: No Back Pain, No Neck Pain Skin: No Rash Neurological: No Dizziness, No Focal Weakness, No Sensory Changes Psychological: No Symptoms Objective Exam General Appearance: no apparent distress, alert Neurologic Exam: alert, oriented x 3, cooperative, normal mood/affect, nml cerebellar function, sensation nml, No motor deficits Skin Exam: normal color, warm, dry Eye Exam: PERRL, EOMI, eyes nml inspection Ears, Nose, Throat Exam: normal ENT inspection, pharynx normal, moist mucous membranes Neck Exam: normal inspection, non-tender, supple, full range of motion Respiratory Exam: normal breath sounds, lungs clear, No respiratory distress Cardiovascular Exam: regular rate/rhythm, normal heart sounds Gastrointestinal/Abdomen Exam: soft, No tenderness, No mass Extremity Exam: normal inspection, normal range of motion Objective Data Vital Signs: Vital Signs - 24 hr Temp Pulse Resp BP BP Pulse Ox 12/19/23 07:25 96.5 F 76 16 143/96 99 12/19/23 04:00 97.5 F 76 18 161/101 97 12/19/23 00:00 18 12/18/23 20:00 98.1 F 100 H 16 137/94 97 12/18/23 16:00 97.2 F 69 16 124/81 96 12/18/23 11:22 113 H 16 158/99 94 L Pain Assessment - Last Documented Pain Intensity 5 Pain Scale Used 0-10 Pain Scale Intake and Output: Intake & Output 12/16/23 12/17/23 12/18/23 12/19/23 11:59 11:59 11:59 11:59 Intake Total 1232 1951 Output Total 300 Balance 932 1951 Weight 63.8 kg Lab Results: Lab Results-Last 24 Hours 12/19/23 12/19/23 Range/Units 04:40 04:40 WBC 9.5 (4.0-10.5) x10^3/uL RBC 4.47 (4.1-5.4) x10^6/uL Hgb 13.3 (12.0-16.0) g/dL Hct 42.1 (35-47) % MCV 94.2 (78-100) fL MCH 29.8 (26-32) pg MCHC 31.6 L (32-36) g/dL RDW 14.2 H (11.5-14.0) % Plt Count 299 (150-450) x10^3/uL MPV 10.1 (7.5-11.0) fL Gran % 68.8 H (36.0-66.0) % Immature Gran % (Auto) 0.4 (0.00-0.4) % Nucleat RBC Rel Count 0.0 (0.00-0.1) % Eos # (Auto) 0.16 (0-0.5) x10^3/uL Immature Gran # (Auto) 0.04 H (0.00-0.03) x10^3u/L Absolute Lymphs (auto) 2.00 (1.0-4.6) x10^3/uL Absolute Monos (auto) 0.70 (0.0-1.3) x10^3/uL Absolute Nucleated RBC 0.00 (0.00-0.01) x10^3u/L Lymphocytes % 21.1 L (24.0-44.0) % Monocytes % 7.4 (0.0-12.0) % Eosinophils % 1.7 (0.00-5.0) % Basophils % 0.6 (0.0-0.4) % Absolute Granulocytes 6.53 (1.4-6.9) x10^3/uL Basophils # 0.06 (0-0.4) x10^3/uL Sodium 135 (135-145) mmol/L Potassium 3.1 L (3.5-5.1) mmol/L Chloride 102 (98-107) mmol/L Carbon Dioxide 26 (22-30) mmol/L Anion Gap 10.2 (5-15) MEQ/L BUN 4 L (7-17) mg/dL Creatinine 0.57 (0.52-1.04) mg/dL Estimated GFR 122.2 ML/MIN Glucose 87 (74-106) mg/dL Calcium 8.1 L (8.4-10.2) mg/dL Amylase 110 (30-110) U/L Lipase 1159 H (23-300) U/L Radiology Exams: Radiology Procedures Category Date Time Status ABDOMINAL-LIMITED [US] Urgent Exams 12/18/23 12:51 Completed CHEST WITHOUT CONTRAST [CT] Stat Exams 12/17/23 15:22 Completed Assessment/Plan (1) Esophageal perforation Current Visit: Yes Status: Acute Assessment & Plan: 33-year-old woman with history of anxiety and depression, here with minor controlled esophageal perforation secondary to N/V likely due to alcoholic pancreatitis. -with small amounts of pneumomediastinum, but no active extravasation of oral contrast on CT chest. Case was discussed by ED physician with CT surgery at [facility], Dr. Romero, and no need for acute intervention. However, some concern for infection, especially given leukocytosis yesterday, although this is improving today. This might also be caused by the underlying reason for the nausea (see below). However, patient is stable, normal vitals except for hypertension, and no worsening of the [address] hours since her initial CT scan done on Friday 12/15. -Continue Zosyn, with plan for outpatient course of oral antibiotics if discharging home -Observe overnight for 24 hours to ensure not worsening -Continue clear liquid diet, pending surgery evaluation for cholelithiasis Plan for follow-up as an outpatient with Dr. Romero 12/18/23: -unable to advance diet -add compazine for N/V -Cotinue Zosyn/IVF 12/18: -vomiting resolved. Still has nausea and epigastric pain Code(s): K22.3 - PERFORATION OF ESOPHAGUS (2) Pancreatitis Current Visit: Yes Status: Acute Qualifiers: Pancreatitis type: alcohol induced Acute pancreatitis complication: no infection or necrosis Assessment & Plan: -Likely alcoholic pancreatitis patient with elevated lipase today, worse than yesterday, and with heavy binge drinking on Saturday evening. Also has associated elevated transaminases, although both of these are improving from yesterday. Symptomatically, patient has no further nausea, and has an appetite today, after essentially not eating for the last 36 hours. Continue on clear liquid diet Advance diet as tolerated tomorrow morning Counseled on limiting binge drinking in the future 12/17: -most likely source of n/v -LFTs continue to improve -Lipase now > 2000 -unable to advance diet, continue CLD for now, patient states she is tolerating clears -add compazine -IVF 12/18: -Vomiting has resolved but still has some abdominal pain and nausea. Keep on clears for today, pending surgery eval for cholelithiasis. Continue IVF. Code(s): K85.90 - ACUTE PANCREATITIS WITHOUT NECROSIS OR INFECTION, UNSP (3) HTN (hypertension) Current Visit: Yes Status: Chronic Assessment & Plan: -elevated diastolic blood pressure, likely in the setting of anxiety and acute illness. -Start hydralazine 25 mg PRN SBP greater than 160 or DBP greater than 100 Code(s): I10 - ESSENTIAL (PRIMARY) HYPERTENSION (4) Cholelithiases Current Visit: Yes Status: Chronic Assessment & Plan: -as noted on CT scan -US RUQ did not show acute cholecystitis -Surg consult pending -LFTs pending today. Had mild T bili elevation on admission which was trending down yesterday (5) Anxiety and depression Current Visit: Yes Status: Chronic Assessment & Plan: Continue home Prozac Code(s): F41.9 - ANXIETY DISORDER, UNSPECIFIED; F32.A - DEPRESSION, UNSPECIFIED Telemedicine Encounter - Telemedicine Encounter Telemedicine Encounter: The entirety of this encounter was performed via Telemedicine"
[2023-12-19 15:11] LABS: BILIRUBIN,TOTAL 1.2 mg/dL (0.2-1.3); Direct Bilirubin 0.6 mg/dL (0.0-0.4)
[2023-12-19] MEDS: PIPERACILLIN/TAZOBACTAM 3.375 GM in Dextrose 5%/Water IV Soln. 100ML PLUS BAG 100 ML IV SCH (17:55)
[2023-12-20 04:56] LABS: Hematocrit 41.3 % (35-47); Hemoglobin 13.4 g/dL (12.0-16.0); Mean Cell Volume 93.7 fL (78-100); Mean Corpuscular Hemoglobin 30.4 pg (26-32); Mean Corpuscular Hgb Concent. 32.4 g/dL (32-36); Mean Platelet Volume 9.8 fL (7.5-11.0); Platelet Count 301 x10^3/uL (150-450); Red Blood Count 4.41 x10^6/uL (4.1-5.4); Red Cell Distribution Width 13.9 % (11.5-14.0); White Blood Count 9.7 x10^3/uL (4.0-10.5)
[2023-12-20 05:15] LABS: ALBUMIN 2.9 g/dL (3.5-5.0); ALKALINE PHOSPHATASE 105 U/L (38-126); ANION GAP 10.3 MEQ/L (5-15); CHLORIDE 102 mmol/L (98-107); Calcium 8.2 mg/dL (8.4-10.2); Carbon Dioxide 26 mmol/L (22-30); EST GLOMERULAR FILTRATION RATE 126.1 ML/MIN; Glucose 100 mg/dL (74-106); LIPASE 674 U/L (23-300); Potassium 3.1 mmol/L (3.5-5.1); SGOT/AST 67 U/L (14-36); SGPT/ALT 37 U/L (0-35); SODIUM 135 mmol/L (135-145); Total Protein 5.5 g/dL (6.3-8.2)
[2023-12-20 05:20] LABS: BLOOD UREA NITROGEN < 2 mg/dL (7-17)
[2023-12-20] MEDS ORDERED: Compazine 10 MG/2 ML ONE (05:44)
--- NOTE | 2023-12-20 08:06 | PROG NOTE ---
DATE: 12/19/2023 REASON FOR CONSULT: 1) Pancreatitis. 2) Esophageal perforation. 3) Gallstones. 4) Fatty liver. HISTORY: The patient was actually feeling really good yesterday. She is not quite as bubbly today. Her vital signs are stable. She is on clear liquids. She has had IV fluid hydration. Her amylase has come down from 2,000 to 1,000. I had a kaity discussion with her. Her films were reviewed with radiologist and discussed with radiologist. It has been elected to see a repeat CT scan of her chest to make sure there is not any developing issues from the pinpoint focal esophageal perforation as she had a few days ago. If her amylase comes down below 150 we will consider laparoscopic cholecystectomy on this individual.
--- NOTE | 2023-12-20 08:43 | XRAY ---
Indication: Follow-up esophageal perforation. Vomiting. Multiple contiguous axial images obtained through the chest using diluted Gastrografin contrast. Comparison: December 11, 2023. Previous pneumomediastinum improved with very minimal residual seen subcarinal. Previous tiny subcarinal esophageal perforation reidentified with now tiny extravasation enteric contrast. Heart not enlarged. No pericardial effusion. Aorta is normal in course and caliber. No pathologic mediastinal lymphadenopathy. Lungs inflated and remain clear. Bony thorax intact again with old right 2 rib fracture. Limited upper abdomen again demonstrates fatty liver and cholelithiasis. Impression: 1. Probable stable mid esophageal perforation. Pneumomediastinum improved with tiny residual. 2. Again incidental fatty liver and cholelithiasis.
--- NOTE | 2023-12-20 11:42 | PCM.NOTE ---
Date and Time: 12/20/23 1138 Subjective Assessment: HPI: 33-year-old woman with a history of depression who presents with nausea, vomiting, and esophageal perforation. Patient had onset yesterday (Saturday) morning of severe nausea and vomiting, unable to tolerate any p.o., with frequent vomiting eventually progressing to bloody vomiting. No initial abdominal pain. She was in the emergency room, and had a CT abdomen pelvis that showed no abdominal findings but had evidence of possible small pockets of air around the esophagus suggestive of esophageal perforation. Patient was recommended for transfer to [facility], but patient left AGAINST MEDICAL ADVICE, as she was feeling better after receiving nausea medication. However, this morning she awoke, with continued nausea, although less than yesterday, and came back to the ER today. Her nausea and vomiting is markedly improved, and she is now tolerating clear liquids, although she has some bilateral subcostal as well as midepigastric pain, worsened after her dry cough. She has never had this kind of vomiting before. She notes that she had been drinking excessively on Saturday evening, she is unable to quantify exactly how much. She has never had problems in the past with alcoholic pancreatitis. She feels a lot better now, with no further nausea, and has a strong appetite currently.Upon patient's return to the ED, cardiothoracic surgeon Dr. Romero was called. Patient underwent CT chest with oral contrast, with no evidence of active extravasation, although small pockets of pneumomediastinum suggestive of prior esophageal perforation. CT abd/pelvis from 12/16/23 showing Impression distal esophageal circumferential wall thickening. Also tiny paraesophageal free air concerning for esophageal perforation.Mild distended gallbladder with gallstone. Fatty liver. Per Dr. Romero, no need for acute intervention. Surgery has been consulted for cholelthiasis, pending further eval whether surgical intervention is required. 12/20/23: Met with patient bedside. Endorses continued nausea and an episode of vomiting this morning. Repeat CT chest with stabl mid espophagel perforation, Penumomediastinum improved with tiny residual. Pending surgery recommendations for cholelthiasis. Lab are improving with lipase at 674 today, hypokalemia at 3.1, will replenish. <CLOVIS PATRICIO - Last Filed: 12/20/23 11:38> Date and Time: 12/20/232030 <TOO THRASHER - Last Filed: 12/20/23 20:32> - Review of Systems Constitutional: No Symptoms Eyes: No Symptoms Ears, Nose, & Throat: No Symptoms Respiratory: No Symptoms Cardiac: No Symptoms Abdominal/Gastrointestinal: Nausea, Vomiting Genitourinary Symptoms: No Symptoms Musculoskeletal: No Symptoms Skin: No Symptoms Neurological: No Symptoms Psychological: No Symptoms Endocrine: No Symptoms Hematologic/Lymphatic: No Symptoms Immunological/Allergic: No Symptoms <CLOVIS PATRICIO - Last Filed: 12/20/23 11:38> Objective Exam General Appearance: no apparent distress Neurologic Exam: alert, oriented x 3, cooperative Skin Exam: normal color Eye Exam: PERRL Ears, Nose, Throat Exam: normal ENT inspection Neck Exam: normal inspection Respiratory Exam: normal breath sounds, lungs clear Cardiovascular Exam: regular rate/rhythm, normal heart sounds Gastrointestinal/Abdomen Exam: soft, normal bowel sounds Extremity Exam: normal inspection Back Exam: normal inspection Pelvic Exam: deferred Rectal Exam: deferred <CLOVIS PATRICIO - Last Filed: 12/20/23 11:38> Objective Data Vital Signs: Vital Signs - 24 hr Temp Pulse Resp BP BP Pulse Ox 12/20/23 07:02 97.8 F 75 16 123/78 96 12/20/23 04:00 97.9 F 88 17 140/92 99 12/20/23 00:00 98.0 F 99 H 16 151/104 98 12/19/23 19:50 98.0 F 90 17 127/72 98 12/19/23 16:00 97.2 F 85 16 153/95 93 L Pain Assessment - Last Documented Pain Intensity 3 Pain Scale Used 0-10 Pain Scale Intake and Output: Intake & Output 12/17/23 12/18/23 12/19/23 12/20/23 11:59 11:59 11:59 11:59 Intake Total 1232 1950 1952 Output Total 300 Balance 932 1950 1952 Weight 63.8 kg Lab Results: Lab Results-Last 24 Hours 12/19/23 12/20/23 12/20/23 Range/Units 14:25 04:25 04:25 WBC 9.7 (4.0-10.5) x10^3/uL RBC 4.41 (4.1-5.4) x10^6/uL Hgb 13.4 (12.0-16.0) g/dL Hct 41.3 (35-47) % MCV 93.7 (78-100) fL MCH 30.4 (26-32) pg MCHC 32.4 (32-36) g/dL RDW 13.9 (11.5-14.0) % Plt Count 301 (150-450) x10^3/uL MPV 9.8 (7.5-11.0) fL Sodium 135 (135-145) mmol/L Potassium 3.1 L (3.5-5.1) mmol/L Chloride 102 (98-107) mmol/L Carbon Dioxide 26 (22-30) mmol/L Anion Gap 10.3 (5-15) MEQ/L BUN < 2 L (7-17) mg/dL Creatinine 0.50 L (0.52-1.04) mg/dL Estimated GFR 126.1 ML/MIN Glucose 100 (74-106) mg/dL Calcium 8.2 L (8.4-10.2) mg/dL Total Bilirubin 1.20 1.00 (0.2-1.3) mg/dL Direct Bilirubin 0.6 H (0.0-0.4) mg/dL AST 82 H 67 H (14-36) U/L ALT 44 H 37 H (0-35) U/L Alkaline Phosphatase 109 105 (38-126) U/L Serum Total Protein 6.0 L 5.5 L (6.3-8.2) g/dL Albumin 3.0 L 2.9 L (3.5-5.0) g/dL Lipase 674 H (23-300) U/L Radiology Exams: Radiology Procedures Category Date Time Status ABDOMINAL-LIMITED [US] Urgent Exams 12/18/23 12:51 Completed CHEST WITHOUT CONTRAST [CT] Routine Exams 12/20/23 05:32 Completed <CLOVIS PATRICIO - Last Filed: 12/20/23 11:38> Vital Signs: Vital Signs - 24 hr Temp Pulse Resp BP BP Pulse Ox 12/20/23 20:00 98.3 F 97 H 18 154/108 97 12/20/23 16:00 98.0 F 89 16 152/105 95 12/20/23 11:43 97.5 F 86 18 153/102 96 12/20/23 07:02 97.8 F 75 16 123/78 96 12/20/23 04:00 97.9 F 88 17 140/92 99 12/20/23 00:00 98.0 F 99 H 16 151/104 98 Pain Assessment - Last Documented Pain Intensity 5 Pain Scale Used 0-10 Pain Scale Intake and Output: Intake & Output 12/18/23 12/19/23 12/20/23 12/21/23 11:59 11:59 11:59 11:59 Intake Total 1232 1950 1952 173 Output Total 300 Balance 932 1950 1952 173 Weight 63.8 kg Lab Results: Lab Results-Last 24 Hours 12/20/23 12/20/23 Range/Units 04:25 04:25 WBC 9.7 (4.0-10.5) x10^3/uL RBC 4.41 (4.1-5.4) x10^6/uL Hgb 13.4 (12.0-16.0) g/dL Hct 41.3 (35-47) % MCV 93.7 (78-100) fL MCH 30.4 (26-32) pg MCHC 32.4 (32-36) g/dL RDW 13.9 (11.5-14.0) % Plt Count 301 (150-450) x10^3/uL MPV 9.8 (7.5-11.0) fL Sodium 135 (135-145) mmol/L Potassium 3.1 L (3.5-5.1) mmol/L Chloride 102 (98-107) mmol/L Carbon Dioxide 26 (22-30) mmol/L Anion Gap 10.3 (5-15) MEQ/L BUN < 2 L (7-17) mg/dL Creatinine 0.50 L (0.52-1.04) mg/dL Estimated GFR 126.1 ML/MIN Glucose 100 (74-106) mg/dL Calcium 8.2 L (8.4-10.2) mg/dL Total Bilirubin 1.00 (0.2-1.3) mg/dL AST 67 H (14-36) U/L ALT 37 H (0-35) U/L Alkaline Phosphatase 105 (38-126) U/L Serum Total Protein 5.5 L (6.3-8.2) g/dL Albumin 2.9 L (3.5-5.0) g/dL Lipase 674 H (23-300) U/L Radiology Exams: Radiology Procedures Category Date Time Status CHEST WITHOUT CONTRAST [CT] Routine Exams 12/20/23 05:32 Completed Multi-Disciplinary Progress Notes: Multi-Disciplinary Progress Notes 12/20/23 11:30 (created 12/20/23 14:16) Case Management Note by Vira Campbell S/W PATIENT- SHE CONTINUES TO DENY ANY NEW NEEDS AT TIME OF DC. SHE PLANS TO DC HOME TO HER PLF AT TIME OF DC Initialized on 12/20/23 14:16 - END OF NOTE <TOO THRASHER - Last Filed: 12/20/23 20:32> Assessment/Plan (1) Esophageal perforation Current Visit: Yes Status: Acute Assessment & Plan: 33-year-old woman with history of anxiety and depression, here with minor controlled esophageal perforation secondary to N/V likely due to alcoholic sewell creatitis. -with small amounts of pneumomediastinum, but no active extravasation of oral contrast on CT chest. [facility], and no need for acute intervention. However, some concern for infection, especially given leukocytosis yesterday, although this is improving today. This might also be caused by the underlying reason for the nausea (see below). However, patient is stable, normal vitals except for hypertension, and no worsening of the [address] hours since her initial CT scan done on Friday 12/15. -Continue Zosyn, with plan for outpatient course of oral antibiotics if discharging home -Observe overnight for 24 hours to ensure not worsening -Continue clear liquid diet, pending surgery evaluation for cholelithiasis Plan for follow-up as an outpatient with Dr. Romero 12/18/23: -unable to advance diet -add compazine for N/V -Cotinue Zosyn/IVF 12/18: -vomiting resolved. Still has nausea and epigastric pain 12/19: -CT showing stable esophageal perforation, improvement of pneumomediastinum -D/C zosyn -Continue on CLD Code(s): K22.3 - PERFORATION OF ESOPHAGUS (2) Pancreatitis Current Visit: Yes Status: Acute Qualifiers: Pancreatitis type: alcohol induced Acute pancreatitis complication: no infection or necrosis Assessment & Plan: -Likely alcoholic pancreatitis patient with elevated lipase today, worse than yesterday, and with heavy binge drinking on Saturday evening. Also has associated elevated transaminases, although both of these are improving from yesterday. Symptomatically, patient has no further nausea, and has an appetite today, after essentially not eating for the last 36 hours. Continue on clear liquid diet Advance diet as tolerated tomorrow morning Counseled on limiting binge drinking in the future 12/17: -most likely source of n/v -LFTs continue to improve -Lipase now > 2000 -unable to advance diet, continue CLD for now, patient states she is tolerating clears -add compazine -IVF 12/18: -Vomiting has resolved but still has some abdominal pain and nausea. Keep on clears for today, pending surgery eval for cholelithiasis. Continue IVF. Code(s): K85.90 - ACUTE PANCREATITIS WITHOUT NECROSIS OR INFECTION, UNSP 12/19: -D/c zosyn -continue IVF/anti-emetics -Lipase downtrending now at 674 -Continue CLD - (3) HTN (hypertension) Current Visit: Yes Status: Chronic Assessment & Plan: -elevated diastolic blood pressure, likely in the setting of anxiety and acute illness. -Start hydralazine 25 mg PRN SBP greater than 160 or DBP greater than 100 Code(s): I10 - ESSENTIAL (PRIMARY) HYPERTENSION (4) Cholelithiases Current Visit: Yes Status: Chronic Assessment & Plan: -as noted on CT scan -US RUQ did not show acute cholecystitis -Surg consult pending -LFTs pending today. Had mild T bili elevation on admission which was trending down yesterday 12/19: -LFTs continue to improve, TBili WNL, Alk phos WNL -Pending surgery recs (5) Anxiety and depression Current Visit: Yes Status: Chronic Assessment & Plan: Continue home Prozac Code(s): F41.9 - ANXIETY DISORDER, UNSPECIFIED; F32.A - DEPRESSION, UNSPECIFIED Code(s): K22.3 - PERFORATION OF ESOPHAGUS (2) Pancreatitis Current Visit: Yes Status: Acute Qualifiers: Pancreatitis type: alcohol induced Acute pancreatitis complication: no infection or necrosis Code(s): K85.90 - ACUTE PANCREATITIS WITHOUT NECROSIS OR INFECTION, UNSP (3) HTN (hypertension) Current Visit: Yes Status: Chronic Code(s): I10 - ESSENTIAL (PRIMARY) HYPERTENSION (4) Anxiety and depression Current Visit: Yes Status: Chronic Code(s): F41.9 - ANXIETY DISORDER, UNSPECIFIED; F32.A - DEPRESSION, UNSPECIFIED (5) Cholelithiases Current Visit: Yes Status: Chronic <CLOVIS PATRICIO - Last Filed: 12/20/23 11:38> (1) Esophageal perforation Current Visit: Yes Status: Acute Code(s): K22.3 - PERFORATION OF ESOPHAGUS (2) Pancreatitis Current Visit: Yes Status: Acute Qualifiers: Pancreatitis type: alcohol induced Acute pancreatitis complication: no infection or necrosis Code(s): K85.90 - ACUTE PANCREATITIS WITHOUT NECROSIS OR INFECTION, UNSP (3) HTN (hypertension) Current Visit: Yes Status: Chronic Code(s): I10 - ESSENTIAL (PRIMARY) HYPERTENSION (4) Cholelithiases Current Visit: Yes Status: Chronic (5) Anxiety and depression Current Visit: Yes Status: Chronic Code(s): F41.9 - ANXIETY DISORDER, UNSPECIFIED; F32.A - DEPRESSION, UNSPECIFIED <TOO THRASHER - Last Filed: 12/20/23 20:32> CHIRAG Encounter - CHIRAG Encounter Attestation CHIRAG Encounter Attestation: "GOPAL Lira andhavediscussed pertinent aspects of their care with Clovis Riley agree with the history, physical exam (any modifications based on my personal exam will be noted below), assessment, and plan as outlined in original note. Please see immediately below for my summary of findings and additional assessment and plan along with any meaningful corrections/explanations to the Subjective/Objective portions of the CHIRAG note will be noted." My portion of the encounter took place via telemedicine. -Alcohol pancreatitis. Symptoms improving with no vomiting, tolerating clears. Await surgical evaluation for cholelithiasis. ?cholecystectomy <TOO THRASHER - Last Filed: 12/20/23 20:32>
[2023-12-20] MEDS: Klor Con PO ONE (17:45)
[2023-12-20] MEDS: POTASSIUM CHLORIDE 20 mEq IN WATER 100ML 20 MEQ/100 ML BAG IV ONE (17:57)
[2023-12-21] MEDS: POTASSIUM CHLORIDE 20 mEq IN WATER 100ML 20 MEQ/100 ML BAG IV SCH (02:00)
[2023-12-21 05:44] LABS: Absolute Neutrophil Ct (ANC) 5.11 x10^3/uL (1.4-6.9); BASOPHIL % 0.5 % (0.0-0.4); Basophil (Absolute #) 0.04 x10^3/uL (0-0.4); Eosinophil % 4.4 % (0.00-5.0); Eosinophil (Absolute #) 0.36 x10^3/uL (0-0.5); Hematocrit 37.5 % (35-47); Hemoglobin 12.3 g/dL (12.0-16.0); IMMATURE GRAN # 0.03 x10^3u/L (0.00-0.03); IMMATURE GRAN % 0.4 % (0.00-0.4); Lymphocyte (Absolute #) 1.73 x10^3/uL (1.0-4.6); Lymphocytes % 21.3 % (24.0-44.0); Mean Cell Volume 93.8 fL (78-100); Mean Corpuscular Hemoglobin 30.8 pg (26-32); Mean Corpuscular Hgb Concent. 32.8 g/dL (32-36); Monocyte (Absolute #) 0.86 x10^3/uL (0.0-1.3); Monocytes % 10.6 % (0.0-12.0); Neutrophil % 62.8 % (36.0-66.0); Platelet Count 290 x10^3/uL (150-450); Red Cell Distribution Width 14.4 % (11.5-14.0); White Blood Count 8.1 x10^3/uL (4.0-10.5)
[2023-12-21 06:19] LABS: ALBUMIN 2.9 g/dL (3.5-5.0); ALKALINE PHOSPHATASE 99 U/L (38-126); CHLORIDE 105 mmol/L (98-107); Calcium 8.3 mg/dL (8.4-10.2); Carbon Dioxide 26 mmol/L (22-30); Creatinine 1 0.49 mg/dL (0.52-1.04); EST GLOMERULAR FILTRATION RATE 126.8 ML/MIN; Glucose 111 mg/dL (74-106); LIPASE 541 U/L (23-300); Potassium 3.1 mmol/L (3.5-5.1); SGOT/AST 61 U/L (14-36); SGPT/ALT 31 U/L (0-35); SODIUM 136 mmol/L (135-145); Total Protein 5.7 g/dL (6.3-8.2)
[2023-12-21 06:22] LABS: BLOOD UREA NITROGEN < 2 mg/dL (7-17)
[2023-12-21] MEDS: POTASSIUM CHLORIDE 20 mEq IN WATER 100ML 20 MEQ/100 ML BAG IV ONE (09:50)
--- NOTE | 2023-12-21 11:06 | PCM.NOTE ---
Date and Time: 12/21/23 1101 Subjective Assessment: HPI: 33-year-old woman with a history of depression who presents with nausea, vomiting, and esophageal perforation. Patient had onset yesterday (Saturday) morning of severe nausea and vomiting, unable to tolerate any p.o., with frequent vomiting eventually progressing to bloody vomiting. No initial abdominal pain. She was in the emergency room, and had a CT abdomen pelvis that showed no abdominal findings but had evidence of possible small pockets of air around the esophagus suggestive of esophageal perforation. Patient was recommended for transfer to [facility], but patient left AGAINST MEDICAL ADVICE, as she was feeling better after receiving nausea medication. However, this morning she awoke, with continued nausea, although less than yesterday, and came back to the ER today. Her nausea and vomiting is markedly improved, and she is now tolerating clear liquids, although she has some bilateral subcostal as well as midepigastric pain, worsened after her dry cough. She has never had this kind of vomiting before. She notes that she had been drinking excessively on Saturday evening, she is unable to quantify exactly how much. She has never had problems in the past with alcoholic pancreatitis. She feels a lot better now, with no further nausea, and has a strong appetite currently.Upon patient's return to the ED, cardiothoracic surgeon Dr. Romero was called. Patient underwent CT chest with oral contrast, with no evidence of active extravasation, although small pockets of pneumomediastinum suggestive of prior esophageal perforation. CT abd/pelvis from 12/16/23 showing Impression distal esophageal circumferential wall thickening. Also tiny paraesophageal free air concerning for esophageal perforation.Mild distended gallbladder with gallstone. Fatty liver. Per Dr. Romero, no need for acute intervention. Surgery has been consulted for cholelthiasis, pending further eval whether surgical intervention is required. 12/20/23: Met with patient bedside. Endorses continued nausea and an episode of vomiting this morning. Repeat CT chest with stabl mid espophagel perforation, Penumomediastinum improved with tiny residual. Pending surgery recommendations for cholelthiasis. Lab are improving with lipase at 674 today, hypokalemia at 3.1, will replenish. 12/21/23: Met with patient bedside. She is now able to tolerate a full liquid diet without nausea and vomiting. Surgery recommending that patient stay until Saturday for lap sarah/EGD which patient has elected to do. Denies fever,cough, sob, cp, abdominal pain, SLAUGHTER, dizziness, N/V/D. <CLOVIS PATRICIO - Last Filed: 12/21/23 11:01> Date and Time: 12/21/23 1731 <ANNA MARIETOO - Last Filed: 12/21/23 17:33> - Review of Systems Constitutional: No Symptoms Eyes: No Symptoms Ears, Nose, & Throat: No Symptoms Respiratory: No Symptoms Cardiac: No Symptoms Abdominal/Gastrointestinal: No Symptoms Genitourinary Symptoms: No Symptoms Musculoskeletal: No Symptoms Skin: No Symptoms Neurological: No Symptoms Psychological: No Symptoms Endocrine: No Symptoms Hematologic/Lymphatic: No Symptoms Immunological/Allergic: No Symptoms <CLOVIS PATRICIO - Last Filed: 12/21/23 11:01> Objective Exam General Appearance: no apparent distress Neurologic Exam: alert, oriented x 3, cooperative Skin Exam: normal color Eye Exam: PERRL Ears, Nose, Throat Exam: normal ENT inspection Neck Exam: normal inspection Respiratory Exam: normal breath sounds, lungs clear Cardiovascular Exam: regular rate/rhythm, normal heart sounds Gastrointestinal/Abdomen Exam: soft, normal bowel sounds Extremity Exam: normal inspection Back Exam: normal inspection Pelvic Exam: deferred Rectal Exam: deferred <CLOVIS PATRICIO - Last Filed: 12/21/23 11:01> Objective Data Vital Signs: Vital Signs - 24 hr Temp Pulse Resp BP BP Pulse Ox 12/21/23 07:55 97.6 F 78 17 148/91 96 12/21/23 04:00 96.8 F 79 18 151/101 99 12/20/23 23:58 98.0 F 99 H 16 135/94 98 12/20/23 20:00 98.3 F 97 H 18 154/108 97 12/20/23 16:00 98.0 F 89 16 152/105 95 12/20/23 11:43 97.5 F 86 18 153/102 96 Pain Assessment - Last Documented Pain Intensity 4 Pain Scale Used 0-10 Pain Scale Intake and Output: Intake & Output 12/18/23 12/19/23 12/20/23 12/21/23 11:59 11:59 11:59 11:59 Intake Total 1232 1951 2793 2823 Output Total 300 400 Balance 932 1950 1952 2423 Weight 63.8 kg Lab Results: Lab Results-Last 24 Hours 12/20/23 12/20/23 12/21/23 Range/Units 00:15 04:25 00:47 WBC (4.0-10.5) x10^3/uL RBC (4.1-5.4) x10^6/uL Hgb (12.0-16.0) g/dL Hct (35-47) % MCV (78-100) fL MCH (26-32) pg MCHC (32-36) g/dL RDW (11.5-14.0) % Plt Count (150-450) x10^3/uL MPV (7.5-11.0) fL Gran % (36.0-66.0) % Immature Gran % (Auto) (0.00-0.4) % Nucleat RBC Rel Count (0.00-0.1) % Eos # (Auto) (0-0.5) x10^3/uL Immature Gran # (Auto) (0.00-0.03) x10^3u/L Absolute Lymphs (auto) (1.0-4.6) x10^3/uL Absolute Monos (auto) (0.0-1.3) x10^3/uL Absolute Nucleated RBC (0.00-0.01) x10^3u/L Lymphocytes % (24.0-44.0) % Monocytes % (0.0-12.0) % Eosinophils % (0.00-5.0) % Basophils % (0.0-0.4) % Absolute Granulocytes (1.4-6.9) x10^3/uL Basophils # (0-0.4) x10^3/uL Sodium 135 (135-145) mmol/L Potassium 2.8 L* 3.1 L (3.5-5.1) mmol/L Chloride 102 (98-107) mmol/L Carbon Dioxide 26 (22-30) mmol/L Anion Gap 10.3 (5-15) MEQ/L BUN < 2 L (7-17) mg/dL Creatinine 0.50 L (0.52-1.04) mg/dL Estimated GFR 126.1 ML/MIN Glucose 100 (74-106) mg/dL Calcium 8.2 L (8.4-10.2) mg/dL Magnesium 1.6 (1.6-2.3) mg/dL Total Bilirubin 1.00 (0.2-1.3) mg/dL AST 67 H (14-36) U/L ALT 37 H (0-35) U/L Alkaline Phosphatase 105 (38-126) U/L Serum Total Protein 5.5 L (6.3-8.2) g/dL Albumin 2.9 L (3.5-5.0) g/dL Lipase 674 H (23-300) U/L 12/21/23 12/21/23 Range/Units 05:17 05:17 WBC 8.1 (4.0-10.5) x10^3/uL RBC 4.00 L (4.1-5.4) x10^6/uL Hgb 12.3 (12.0-16.0) g/dL Hct 37.5 (35-47) % MCV 93.8 (78-100) fL MCH 30.8 (26-32) pg MCHC 32.8 (32-36) g/dL RDW 14.4 H (11.5-14.0) % Plt Count 290 (150-450) x10^3/uL MPV 10.0 (7.5-11.0) fL Gran % 62.8 (36.0-66.0) % Immature Gran % (Auto) 0.4 (0.00-0.4) % Nucleat RBC Rel Count 0.0 (0.00-0.1) % Eos # (Auto) 0.36 (0-0.5) x10^3/uL Immature Gran # (Auto) 0.03 (0.00-0.03) x10^3u/L Absolute Lymphs (auto) 1.73 (1.0-4.6) x10^3/uL Absolute Monos (auto) 0.86 (0.0-1.3) x10^3/uL Absolute Nucleated RBC 0.00 (0.00-0.01) x10^3u/L Lymphocytes % 21.3 L (24.0-44.0) % Monocytes % 10.6 (0.0-12.0) % Eosinophils % 4.4 (0.00-5.0) % Basophils % 0.5 (0.0-0.4) % Absolute Granulocytes 5.11 (1.4-6.9) x10^3/uL Basophils # 0.04 (0-0.4) x10^3/uL Sodium 136 (135-145) mmol/L Potassium 3.1 L (3.5-5.1) mmol/L Chloride 105 (98-107) mmol/L Carbon Dioxide 26 (22-30) mmol/L Anion Gap 8.0 (5-15) MEQ/L BUN < 2 L (7-17) mg/dL Creatinine 0.49 L (0.52-1.04) mg/dL Estimated GFR 126.8 ML/MIN Glucose 111 H (74-106) mg/dL Calcium 8.3 L (8.4-10.2) mg/dL Magnesium (1.6-2.3) mg/dL Total Bilirubin 0.70 (0.2-1.3) mg/dL AST 61 H (14-36) U/L ALT 31 (0-35) U/L Alkaline Phosphatase 99 (38-126) U/L Serum Total Protein 5.7 L (6.3-8.2) g/dL Albumin 2.9 L (3.5-5.0) g/dL Lipase 541 H (23-300) U/L Radiology Exams: Radiology Procedures Category Date Time Status CHEST WITHOUT CONTRAST [CT] Routine Exams 12/20/23 05:32 Completed Multi-Disciplinary Progress Notes: Multi-Disciplinary Progress Notes 12/20/23 11:30 (created 12/20/23 14:16) Case Management Note by Vira Campbell S/W PATIENT- SHE CONTINUES TO DENY ANY NEW NEEDS AT TIME OF DC. SHE PLANS TO DC HOME TO HER PLF AT TIME OF DC Initialized on 12/20/23 14:16 - END OF NOTE <CLOVIS PATRICIO - Last Filed: 12/21/23 11:01> Vital Signs: Vital Signs - 24 hr Temp Pulse Resp BP BP Pulse Ox 12/21/23 12:00 97.6 F 87 18 99 12/21/23 07:55 97.6 F 78 17 148/91 96 12/21/23 04:00 96.8 F 79 18 151/101 99 12/20/23 23:58 98.0 F 99 H 16 135/94 98 12/20/23 20:00 98.3 F 97 H 18 154/108 97 Pain Assessment - Last Documented Pain Intensity 4 Pain Scale Used 0-10 Pain Scale Intake and Output: Intake & Output 12/19/23 12/20/23 12/21/23 12/22/23 11:59 11:59 11:59 11:59 Intake Total 1950 1952 282 Output Total 400 Balance 1950 1952 242 Lab Results: Lab Results-Last 24 Hours 12/20/23 12/20/23 12/21/23 Range/Units 00:15 04:25 00:47 WBC (4.0-10.5) x10^3/uL RBC (4.1-5.4) x10^6/uL Hgb (12.0-16.0) g/dL Hct (35-47) % MCV (78-100) fL MCH (26-32) pg MCHC (32-36) g/dL RDW (11.5-14.0) % Plt Count (150-450) x10^3/uL MPV (7.5-11.0) fL Gran % (36.0-66.0) % Immature Gran % (Auto) (0.00-0.4) % Nucleat RBC Rel Count (0.00-0.1) % Eos # (Auto) (0-0.5) x10^3/uL Immature Gran # (Auto) (0.00-0.03) x10^3u/L Absolute Lymphs (auto) (1.0-4.6) x10^3/uL Absolute Monos (auto) (0.0-1.3) x10^3/uL Absolute Nucleated RBC (0.00-0.01) x10^3u/L Lymphocytes % (24.0-44.0) % Monocytes % (0.0-12.0) % Eosinophils % (0.00-5.0) % Basophils % (0.0-0.4) % Absolute Granulocytes (1.4-6.9) x10^3/uL Basophils # (0-0.4) x10^3/uL Sodium 135 (135-145) mmol/L Potassium 2.8 L* 3.1 L (3.5-5.1) mmol/L Chloride 102 (98-107) mmol/L Carbon Dioxide 26 (22-30) mmol/L Anion Gap 10.3 (5-15) MEQ/L BUN < 2 L (7-17) mg/dL Creatinine 0.50 L (0.52-1.04) mg/dL Estimated GFR 126.1 ML/MIN Glucose 100 (74-106) mg/dL Calcium 8.2 L (8.4-10.2) mg/dL Magnesium 1.6 (1.6-2.3) mg/dL Total Bilirubin 1.00 (0.2-1.3) mg/dL AST 67 H (14-36) U/L ALT 37 H (0-35) U/L Alkaline Phosphatase 105 (38-126) U/L Serum Total Protein 5.5 L (6.3-8.2) g/dL Albumin 2.9 L (3.5-5.0) g/dL Lipase 674 H (23-300) U/L 12/21/23 12/21/23 Range/Units 05:17 05:17 WBC 8.1 (4.0-10.5) x10^3/uL RBC 4.00 L (4.1-5.4) x10^6/uL Hgb 12.3 (12.0-16.0) g/dL Hct 37.5 (35-47) % MCV 93.8 (78-100) fL MCH 30.8 (26-32) pg MCHC 32.8 (32-36) g/dL RDW 14.4 H (11.5-14.0) % Plt Count 290 (150-450) x10^3/uL MPV 10.0 (7.5-11.0) fL Gran % 62.8 (36.0-66.0) % Immature Gran % (Auto) 0.4 (0.00-0.4) % Nucleat RBC Rel Count 0.0 (0.00-0.1) % Eos # (Auto) 0.36 (0-0.5) x10^3/uL Immature Gran # (Auto) 0.03 (0.00-0.03) x10^3u/L Absolute Lymphs (auto) 1.73 (1.0-4.6) x10^3/uL Absolute Monos (auto) 0.86 (0.0-1.3) x10^3/uL Absolute Nucleated RBC 0.00 (0.00-0.01) x10^3u/L Lymphocytes % 21.3 L (24.0-44.0) % Monocytes % 10.6 (0.0-12.0) % Eosinophils % 4.4 (0.00-5.0) % Basophils % 0.5 (0.0-0.4) % Absolute Granulocytes 5.11 (1.4-6.9) x10^3/uL Basophils # 0.04 (0-0.4) x10^3/uL Sodium 136 (135-145) mmol/L Potassium 3.1 L (3.5-5.1) mmol/L Chloride 105 (98-107) mmol/L Carbon Dioxide 26 (22-30) mmol/L Anion Gap 8.0 (5-15) MEQ/L BUN < 2 L (7-17) mg/dL Creatinine 0.49 L (0.52-1.04) mg/dL Estimated GFR 126.8 ML/MIN Glucose 111 H (74-106) mg/dL Calcium 8.3 L (8.4-10.2) mg/dL Magnesium (1.6-2.3) mg/dL Total Bilirubin 0.70 (0.2-1.3) mg/dL AST 61 H (14-36) U/L ALT 31 (0-35) U/L Alkaline Phosphatase 99 (38-126) U/L Serum Total Protein 5.7 L (6.3-8.2) g/dL Albumin 2.9 L (3.5-5.0) g/dL Lipase 541 H (23-300) U/L Radiology Exams: Radiology Procedures Category Date Time Status CHEST WITHOUT CONTRAST [CT] Routine Exams 12/20/23 05:32 Completed <TOO THRASHER - Last Filed: 12/21/23 17:33> Assessment/Plan (1) Esophageal perforation Current Visit: Yes Status: Acute Assessment & Plan: 33-year-old woman with history of anxiety and depression, here with minor controlled esophageal perforation secondary to N/V likely due to alcoholic pancreatitis. -with small amounts of pneumomediastinum, but no active extravasation of oral contrast on CT chest. Case was discussed by ED physician with CT surgery at [facility], Dr. Romero, and no need for acute intervention. However, some concern for infection, especially given leukocytosis yesterday, although this is improving today. This might also be caused by the underlying reason for the nausea (see below). However, patient is stable, normal vitals except for hypertension, and no worsening of the [address] hours since her initial CT scan done on Friday 12/15. -Continue Zosyn, with plan for outpatient course of oral antibiotics if discharging home -Observe overnight for 24 hours to ensure not worsening -Continue clear liquid diet, pending surgery evaluation for cholelithiasis Plan for follow-up as an outpatient with Dr. Romero 12/18/23: -unable to advance diet -add compazine for N/V -Cotinue Zosyn/IVF 12/18: -vomiting resolved. Still has nausea and epigastric pain 12/19: -CT showing stable esophageal perforation, improvement of pneumomediastinum -D/C zosyn -Continue on CLD 12/19: -Advance to FLD -Patient to follow up with Dr. Romero as OP Code(s): K22.3 - PERFORATION OF ESOPHAGUS (2) Pancreatitis Current Visit: Yes Status: Acute Qualifiers: Pancreatitis type: alcohol induced Acute pancreatitis complication: no infection or necrosis Assessment & Plan: -Likely alcoholic pancreatitis patient with elevated lipase today, worse than yesterday, and with heavy binge drinking on Saturday evening. Also has associated elevated transaminases, although both of these are improving from yesterday. Symptomatically, patient has no further nausea, and has an appetite today, after essentially not eating for the last 36 hours. Continue on clear liquid diet Advance diet as tolerated tomorrow morning Counseled on limiting binge drinking in the future 12/17: -most likely source of n/v -LFTs continue to improve -Lipase now > 2000 -unable to advance diet, continue CLD for now, patient states she is tolerating clears -add compazine -IVF 12/18: -Vomiting has resolved but still has some abdominal pain and nausea. Keep on clears for today, pending surgery eval for cholelithiasis. Continue IVF. Code(s): K85.90 - ACUTE PANCREATITIS WITHOUT NECROSIS OR INFECTION, UNSP 12/19: -D/c zosyn -continue IVF/anti-emetics -Lipase downtrending now at 674 -Continue CLD 12/20: -Pt has been advanced to FLD and tolerating well -LFT's unremarkable -Surgery requesting daily lipase, plan for EGD/Lap sarah Saturday (3) HTN (hypertension) Current Visit: Yes Status: Chronic Assessment & Plan: -elevated diastolic blood pressure, likely in the setting of anxiety and acute illness. -Start hydralazine 25 mg PRN SBP greater than 160 or DBP greater than 100 Code(s): I10 - ESSENTIAL (PRIMARY) HYPERTENSION (4) Cholelithiases Current Visit: Yes Status: Chronic Assessment & Plan: -as noted on CT scan -US RUQ did not show acute cholecystitis -Surg consult pending -LFTs pending today. Had mild T bili elevation on admission which was trending down yesterday 12/19: -LFTs continue to improve, TBili WNL, Alk phos WNL -Pending surgery recs 12/20: -Surgery recommending EGD/Lap Sarah Saturday (5) Anxiety and depression Current Visit: Yes Status: Chronic Assessment & Plan: Continue home Prozac Code(s): F41.9 - ANXIETY DISORDER, UNSPECIFIED; F32.A - DEPRESSION, UNSPECIFIED Code(s): K22.3 - PERFORATION OF ESOPHAGUS Code(s): K22.3 - PERFORATION OF ESOPHAGUS (2) Pancreatitis Current Visit: Yes Status: Acute Qualifiers: Pancreatitis type: alcohol induced Acute pancreatitis complication: no infection or necrosis Code(s): K85.90 - ACUTE PANCREATITIS WITHOUT NECROSIS OR INFECTION, UNSP (3) HTN (hypertension) Current Visit: Yes Status: Chronic Code(s): I10 - ESSENTIAL (PRIMARY) HYPERTENSION (4) Anxiety and depression Current Visit: Yes Status: Chronic Code(s): F41.9 - ANXIETY DISORDER, UNSPECIFIED; F32.A - DEPRESSION, UNSPECIFIED (5) Cholelithiases Current Visit: Yes Status: Chronic <CLOVIS PATRICIO - Last Filed: 12/21/23 11:01> (1) Esophageal perforation Current Visit: Yes Status: Acute Code(s): K22.3 - PERFORATION OF ESOPHAGUS (2) Pancreatitis Current Visit: Yes Status: Acute Qualifiers: Pancreatitis type: alcohol induced Acute pancreatitis complication: no infection or necrosis Code(s): K85.90 - ACUTE PANCREATITIS WITHOUT NECROSIS OR INFECTION, UNSP (3) HTN (hypertension) Current Visit: Yes Status: Chronic Code(s): I10 - ESSENTIAL (PRIMARY) HYPERTENSION (4) Cholelithiases Current Visit: Yes Status: Chronic (5) Anxiety and depression Current Visit: Yes Status: Chronic Code(s): F41.9 - ANXIETY DISORDER, UNSPECIFIED; F32.A - DEPRESSION, UNSPECIFIED <TOO THRASHER - Last Filed: 12/21/23 17:33> CHIRAG Encounter - CHIRAG Encounter Attestation CHIRAG Encounter Attestation: "GOPAL Lira andwaltervediscussed pertinent aspects of their care with Clovis Riley agree with the history, physical exam (any modifications based on my personal exam will be noted below), assessment, and plan as outlined in original note. Please see immediately below for my summary of findings and additional assessment and plan along with any meaningful corrections/explanations to the Subjective/Objective portions of the CHIRAG note will be noted." My portion of the encounter took place via telemedicine. -Patient's symptoms have almost resolved and she wanted to advance her diet to r egular. Okay to start soft diet given recent esophageal performation. Plan for lap sarah on saturday. Surgery prefers to keep patient until then and patient also would like to stay until then. <TOO THRASHER - Last Filed: 12/21/23 17:33>
[2023-12-21] MEDS: Prozac 20 MG PO SCH (20:34)
[2023-12-22] MEDS ORDERED: Compazine 10 MG/2 ML ONE (05:32)
[2023-12-22 05:56] LABS: Absolute Neutrophil Ct (ANC) 4.74 x10^3/uL (1.4-6.9); BASOPHIL % 0.4 % (0.0-0.4); Basophil (Absolute #) 0.03 x10^3/uL (0-0.4); Eosinophil % 5.9 % (0.00-5.0); Eosinophil (Absolute #) 0.47 x10^3/uL (0-0.5); Hematocrit 40.2 % (35-47); Hemoglobin 13.1 g/dL (12.0-16.0); IMMATURE GRAN # 0.06 x10^3u/L (0.00-0.03); IMMATURE GRAN % 0.7 % (0.00-0.4); Lymphocyte (Absolute #) 1.95 x10^3/uL (1.0-4.6); Lymphocytes % 24.3 % (24.0-44.0); Mean Cell Volume 93.5 fL (78-100); Mean Corpuscular Hemoglobin 30.5 pg (26-32); Mean Corpuscular Hgb Concent. 32.6 g/dL (32-36); Mean Platelet Volume 10.1 fL (7.5-11.0); Monocyte (Absolute #) 0.78 x10^3/uL (0.0-1.3); Monocytes % 9.7 % (0.0-12.0); Platelet Count 331 x10^3/uL (150-450); Red Cell Distribution Width 14.6 % (11.5-14.0)
[2023-12-22 06:35] LABS: ALBUMIN 3.2 g/dL (3.5-5.0); ALKALINE PHOSPHATASE 97 U/L (38-126); ANION GAP 11.1 MEQ/L (5-15); BLOOD UREA NITROGEN 3 mg/dL (7-17); CHLORIDE 104 mmol/L (98-107); Calcium 9.4 mg/dL (8.4-10.2); Carbon Dioxide 25 mmol/L (22-30); Cholesterol 177 mg/dL (50-200); Creatinine 1 0.48 mg/dL (0.52-1.04); EST GLOMERULAR FILTRATION RATE 127.4 ML/MIN; Glucose 104 mg/dL (74-106); HDL CHOLESTEROL 49 mg/dL (40-60); Potassium 3.6 mmol/L (3.5-5.1); SGOT/AST 54 U/L (14-36); SGPT/ALT 27 U/L (0-35); SODIUM 137 mmol/L (135-145); TRIGLYCERIDE 193 mg/dL (30-150); Total Protein 6.3 g/dL (6.3-8.2)
--- NOTE | 2023-12-22 11:54 | PCM.NOTE ---
Date and Time: 12/22/23 1149 Subjective Assessment: HPI: 33-year-old woman with a history of depression who presents with nausea, vomiting, and esophageal perforation. Patient had onset yesterday (Saturday) morning of severe nausea and vomiting, unable to tolerate any p.o., with frequent vomiting eventually progressing to bloody vomiting. No initial abdominal pain. She was in the emergency room, and had a CT abdomen pelvis that showed no abdominal findings but had evidence of possible small pockets of air around the esophagus suggestive of esophageal perforation. Patient was recommended for transfer to [facility], but patient left AGAINST MEDICAL ADVICE, as she was feeling better after receiving nausea medication. However, this morning she awoke, with continued nausea, although less than yesterday, and came back to the ER today. Her nausea and vomiting is markedly improved, and she is now tolerating clear liquids, although she has some bilateral subcostal as well as midepigastric pain, worsened after her dry cough. She has never had this kind of vomiting before. She notes that she had been drinking excessively on Saturday evening, she is unable to quantify exactly how much. She has never had problems in the past with alcoholic pancreatitis. She feels a lot better now, with no further nausea, and has a strong appetite currently.Upon patient's return to the ED, cardiothoracic surgeon Dr. Romero was called. Patient underwent CT chest with oral contrast, with no evidence of active extravasation, although small pockets of pneumomediastinum suggestive of prior esophageal perforation. CT abd/pelvis from 12/16/23 showing Impression distal esophageal circumferential wall thickening. Also tiny paraesophageal free air concerning for esophageal perforation.Mild distended gallbladder with gallstone. Fatty liver. Per Dr. Romero, no need for acute intervention. Surgery has been consulted for cholelthiasis, pending further eval whether surgical intervention is required. 12/20/23: Met with patient bedside. Endorses continued nausea and an episode of vomiting this morning. Repeat CT chest with stabl mid espophagel perforation, Penumomedi astinum improved with tiny residual. Pending surgery recommendations for cholelthiasis. Lab are improving with lipase at 674 today, hypokalemia at 3.1, will replenish. 12/21/23: Met with patient bedside. She is now able to tolerate a full liquid diet without nausea and vomiting. Surgery recommending that patient stay until Saturday for lap sarah/EGD which patient has elected to do. Denies fever,cough, sob, cp, abdominal pain, SLAUGHTER, dizziness, N/V/D. 11/2423: Met with patient bedside. Endorses abdominal pain secondary to retching, more like muscle aches. Discussed labwork, LFTs normalizing, lipase is still elevated. Clinically the patient is doing much better and would like to advance her diet today. Nausea and vomiting have resolved. Advised patient to consume soft diet until follow up with cardiothoracic surgeon. Spoke with Dr. Givens today, plan for EGD/Lap sarah tomorrow around 4. He would like a lipase drawn in the a.m. <CLOVIS PATRICIO - Last Filed: 12/22/23 11:49> Date and Time: 12/22/231801 <TOO THRASHER - Last Filed: 12/22/23 18:04> - Review of Systems Constitutional: No Symptoms Eyes: No Symptoms Ears, Nose, & Throat: No Symptoms Respiratory: No Symptoms Cardiac: No Symptoms Abdominal/Gastrointestinal: Abdominal Pain Genitourinary Symptoms: No Symptoms Musculoskeletal: No Symptoms Skin: No Symptoms Neurological: No Symptoms Psychological: No Symptoms Endocrine: No Symptoms Hematologic/Lymphatic: No Symptoms Immunological/Allergic: No Symptoms <CLOVIS PATIRCIO - Last Filed: 12/22/23 11:49> Objective Exam General Appearance: no apparent distress Neurologic Exam: alert, oriented x 3, cooperative Skin Exam: normal color Eye Exam: PERRL Ears, Nose, Throat Exam: normal ENT inspection Neck Exam: normal inspection Respiratory Exam: normal breath sounds, lungs clear Cardiovascular Exam: regular rate/rhythm, normal heart sounds Gastrointestinal/Abdomen Exam: soft, normal bowel sounds, tenderness (TTP x RU/PATY quads) Extremity Exam: normal inspection Back Exam: normal inspection <CLOVIS PATRICIO - Last Filed: 12/22/23 11:49> Objective Data Vital Signs: Vital Signs - 24 hr Temp Pulse Resp BP Pulse Ox 12/22/23 11:44 98.0 F 93 H 16 141/102 94 L 12/22/23 07:29 96.5 F 85 16 144/102 93 L 12/22/23 04:00 97.8 F 71 16 126/84 99 12/21/23 23:29 97.8 F 76 18 123/71 99 12/21/23 20:00 97.4 F 88 18 163/112 99 12/21/23 16:00 97.6 F 86 19 156/103 97 12/21/23 12:00 97.6 F 87 18 99 Pain Assessment - Last Documented Pain Intensity 4 Pain Scale Used 0-10 Pain Scale Intake and Output: Intake & Output 12/19/23 12/20/23 12/21/23 12/22/23 11:59 11:59 11:59 11:59 Intake Total 1950 1952 2823 1540 Output Total 400 Balance 1950 1952 2423 1540 Lab Results: Lab Results-Last 24 Hours 12/22/23 12/22/23 12/22/23 Range/Units 05:00 05:27 05:27 WBC 8.0 (4.0-10.5) x10^3/uL RBC 4.30 (4.1-5.4) x10^6/uL Hgb 13.1 (12.0-16.0) g/dL Hct 40.2 (35-47) % MCV 93.5 (78-100) fL MCH 30.5 (26-32) pg MCHC 32.6 (32-36) g/dL RDW 14.6 H (11.5-14.0) % Plt Count 331 (150-450) x10^3/uL MPV 10.1 (7.5-11.0) fL Gran % 59.0 (36.0-66.0) % Immature Gran % (Auto) 0.7 H (0.00-0.4) % Nucleat RBC Rel Count 0.0 (0.00-0.1) % Eos # (Auto) 0.47 (0-0.5) x10^3/uL Immature Gran # (Auto) 0.06 H (0.00-0.03) x10^3u/L Absolute Lymphs (auto) 1.95 (1.0-4.6) x10^3/uL Absolute Monos (auto) 0.78 (0.0-1.3) x10^3/uL Absolute Nucleated RBC 0.00 (0.00-0.01) x10^3u/L Lymphocytes % 24.3 (24.0-44.0) % Monocytes % 9.7 (0.0-12.0) % Eosinophils % 5.9 H (0.00-5.0) % Basophils % 0.4 (0.0-0.4) % Absolute Granulocytes 4.74 (1.4-6.9) x10^3/uL Basophils # 0.03 (0-0.4) x10^3/uL Sodium 137 (135-145) mmol/L Potassium 3.6 (3.5-5.1) mmol/L Chloride 104 (98-107) mmol/L Carbon Dioxide 25 (22-30) mmol/L Anion Gap 11.1 (5-15) MEQ/L BUN 3 L (7-17) mg/dL Creatinine 0.48 L (0.52-1.04) mg/dL Estimated GFR 127.4 ML/MIN Glucose 104 (74-106) mg/dL Calcium 9.4 (8.4-10.2) mg/dL Total Bilirubin 0.60 (0.2-1.3) mg/dL AST 54 H (14-36) U/L ALT 27 (0-35) U/L Alkaline Phosphatase 97 (38-126) U/L Serum Total Protein 6.3 (6.3-8.2) g/dL Albumin 3.2 L (3.5-5.0) g/dL Triglycerides 193 H (30-150) mg/dL Cholesterol 177 (50-200) mg/dL LDL Cholesterol Pending HDL Cholesterol 49 (40-60) mg/dL Heart Disease Risk Ratio 4.0 Lipase 728 H (23-300) U/L <CLOVIS PATRICIO - Last Filed: 12/22/23 11:49> Vital Signs: Vital Signs - 24 hr Temp Pulse Resp BP Pulse Ox 12/22/23 16:00 97.6 F 86 18 137/96 99 12/22/23 11:44 98.0 F 93 H 16 141/102 94 L 12/22/23 07:29 96.5 F 85 16 144/102 93 L 12/22/23 04:00 97.8 F 71 16 126/84 99 12/21/23 23:29 97.8 F 76 18 123/71 99 12/21/23 20:00 97.4 F 88 18 163/112 99 Pain Assessment - Last Documented Pain Intensity 4 Pain Scale Used 0-10 Pain Scale Intake and Output: Intake & Output 12/20/23 12/21/23 12/22/23 12/23/23 11:59 11:59 11:59 11:59 Intake Total 1952 2823 1540 240 Output Total 400 Balance 1952 2422 1540 240 Lab Results: Lab Results-Last 24 Hours 12/22/23 12/22/23 12/22/23 Range/Units 05:00 05:27 05:27 WBC 8.0 (4.0-10.5) x10^3/uL RBC 4.30 (4.1-5.4) x10^6/uL Hgb 13.1 (12.0-16.0) g/dL Hct 40.2 (35-47) % MCV 93.5 (78-100) fL MCH 30.5 (26-32) pg MCHC 32.6 (32-36) g/dL RDW 14.6 H (11.5-14.0) % Plt Count 331 (150-450) x10^3/uL MPV 10.1 (7.5-11.0) fL Gran % 59.0 (36.0-66.0) % Immature Gran % (Auto) 0.7 H (0.00-0.4) % Nucleat RBC Rel Count 0.0 (0.00-0.1) % Eos # (Auto) 0.47 (0-0.5) x10^3/uL Immature Gran # (Auto) 0.06 H (0.00-0.03) x10^3u/L Absolute Lymphs (auto) 1.95 (1.0-4.6) x10^3/uL Absolute Monos (auto) 0.78 (0.0-1.3) x10^3/uL Absolute Nucleated RBC 0.00 (0.00-0.01) x10^3u/L Lymphocytes % 24.3 (24.0-44.0) % Monocytes % 9.7 (0.0-12.0) % Eosinophils % 5.9 H (0.00-5.0) % Basophils % 0.4 (0.0-0.4) % Absolute Granulocytes 4.74 (1.4-6.9) x10^3/uL Basophils # 0.03 (0-0.4) x10^3/uL Sodium 137 (135-145) mmol/L Potassium 3.6 (3.5-5.1) mmol/L Chloride 104 (98-107) mmol/L Carbon Dioxide 25 (22-30) mmol/L Anion Gap 11.1 (5-15) MEQ/L BUN 3 L (7-17) mg/dL Creatinine 0.48 L (0.52-1.04) mg/dL Estimated GFR 127.4 ML/MIN Glucose 104 (74-106) mg/dL Calcium 9.4 (8.4-10.2) mg/dL Total Bilirubin 0.60 (0.2-1.3) mg/dL AST 54 H (14-36) U/L ALT 27 (0-35) U/L Alkaline Phosphatase 97 (38-126) U/L Serum Total Protein 6.3 (6.3-8.2) g/dL Albumin 3.2 L (3.5-5.0) g/dL Triglycerides 193 H (30-150) mg/dL Cholesterol 177 (50-200) mg/dL LDL Cholesterol Pending HDL Cholesterol 49 (40-60) mg/dL Heart Disease Risk Ratio 4.0 Lipase 728 H (23-300) U/L <TOO THRASHER - Last Filed: 12/22/23 18:04> Assessment/Plan (1) Esophageal perforation Current Visit: Yes Status: Acute Assessment & Plan: 33-year-old woman with history of anxiety and depression, here with minor controlled esophageal perforation secondary to N/V likely due to alcoholic pancreatitis. -with small amounts of pneumomediastinum, but no active extravasation of oral contrast on CT chest. Case was discussed by ED physician with CT surgery at [facility], Dr. Romero, and no need for acute intervention. However, some concern for infection, especially given leukocytosis yesterday, although this is improving today. This might also be caused by the underlying reason for the nausea (see below). However, patient is stable, normal vitals except for hypertension, and no worsening of the [address] hours since her initial CT scan done on Friday 12/15. -Continue Zosyn, with plan for outpatient course of oral antibiotics if discharging home -Observe overnight for 24 hours to ensure not worsening -Continue clear liquid diet, pending surgery evaluation for cholelithiasis Plan for follow-up as an outpatient with Dr. Romero 12/18/23: -unable to advance diet -add compazine for N/V -Cotinue Zosyn/IVF 12/18: -vomiting resolved. Still has nausea and epigastric pain 12/19: -CT showing stable esophageal perforation, improvement of pneumomediastinum -D/C zosyn -Continue on CLD 12/19: -Advance to FLD -Patient to follow up with Dr. Romero as OP Code(s): K22.3 - PERFORATION OF ESOPHAGUS (2) Pancreatitis Current Visit: Yes Status: Acute Qualifiers: Pancreatitis type: alcohol induced Acute pancreatitis complication: no infection or necrosis Assessment & Plan: -Likely alcoholic pancreatitis patient with elevated lipase today, worse than yesterday, and with heavy binge drinking on Saturday evening. Also has associated elevated transaminases, although both of these are improving from yesterday. Symptomatically, patient has no further nausea, and has an appetite today, after essentially not eating for the last 36 hours. Continue on clear liquid diet Advance diet as tolerated tomorrow morning Counseled on limiting binge drinking in the future 12/17: -most likely source of n/v -LFTs continue to improve -Lipase now > 2000 -unable to advance diet, continue CLD for now, patient states she is tolerating clears -add compazine -IVF 12/21: -d/c fluids -N/V resolved -Advance diet, advised soft diet due to esophageal perf -Lipase elevated at 728 12/18: -Vomiting has resolved but still has some abdominal pain and nausea. Keep on clears for today, pending surgery eval for cholelithiasis. Continue IVF. Code(s): K85.90 - ACUTE PANCREATITIS WITHOUT NECROSIS OR INFECTION, UNSP 12/19: -D/c zosyn -continue IVF/anti-emetics -Lipase downtrending now at 674 -Continue CLD 12/20: -Pt has been advanced to FLD and tolerating well -LFT's unremarkable -Surgery requesting daily lipase, plan for EGD/Lap sarah Saturday (3) HTN (hypertension) Current Visit: Yes Status: Chronic Assessment & Plan: -elevated diastolic blood pressure, likely in the setting of anxiety and acute illness. -Start hydralazine 25 mg PRN SBP greater than 160 or DBP greater than 100 Code(s): I10 - ESSENTIAL (PRIMARY) HYPERTENSION (4) Cholelithiases Current Visit: Yes Status: Chronic Assessment & Plan: -as noted on CT scan -US RUQ did not show acute cholecystitis -Surg consult pending -LFTs pending today. Had mild T bili elevation on admission which was trending down yesterday 12/19: -LFTs continue to improve, TBili WNL, Alk phos WNL -Pending surgery recs 12/20: -Surgery recommending EGD/Lap Sarah Saturday (5) Anxiety and depression Current Visit: Yes Status: Chronic Assessment & Plan: Continue home Prozac Code(s): F41.9 - ANXIETY DISORDER, UNSPECIFIED; F32.A - DEPRESSION, UNSPECIFIED Code(s): K22.3 - PERFORATION OF ESOPHAGUS Code(s): K22.3 - PERFORATION OF ESOPHAGUS (2) Pancreatitis Current Visit: Yes Status: Acute Qualifiers: Pancreatitis type: alcohol induced Acute pancreatitis complication: no infection or necrosis Code(s): K85.90 - ACUTE PANCREATITIS WITHOUT NECROSIS OR INFECTION, UNSP (3) HTN (hypertension) Current Visit: Yes Status: Chronic Code(s): I10 - ESSENTIAL (PRIMARY) HYPERTENSION (4) Anxiety and depression Current Visit: Yes Status: Chronic Code(s): F41.9 - ANXIETY DISORDER, UNSPECIFIED; F32.A - DEPRESSION, UNSPECIFIED (5) Cholelithiases Current Visit: Yes Status: Chronic <CLOVIS PATRICIO - Last Filed: 12/22/23 11:49> (1) Esophageal perforation Current Visit: Yes Status: Acute Code(s): K22.3 - PERFORATION OF ESOPHAGUS (2) Pancreatitis Current Visit: Yes Status: Acute Qualifiers: Pancreatitis type: alcohol induced Acute pancreatitis complication: no infection or necrosis Code(s): K85.90 - ACUTE PANCREATITIS WITHOUT NECROSIS OR INFECTION, UNSP (3) HTN (hypertension) Current Visit: Yes Status: Chronic Code(s): I10 - ESSENTIAL (PRIMARY) HYPERTENSION (4) Cholelithiases Current Visit: Yes Status: Chronic (5) Anxiety and depression Current Visit: Yes Status: Chronic Code(s): F41.9 - ANXIETY DISORDER, UNSPECIFIED; F32.A - DEPRESSION, UNSPECIFIED <TOO THRASHER - Last Filed: 12/22/23 18:04> CHIRAG Encounter - CHIRAG Encounter Attestation CHIRAG Encounter Attestation: "GOPAL Lira andhavediscussed pertinent aspects of their care with Clovis Riley agree with the history, physical exam (any modifications based on my personal exam will be noted below), assessment, and plan as outlined in original note. Please see immediately below for my summary of findings and additional assessment and plan along with any meaningful corrections/explanations to the Subjective/Objective portions of the CHIRAG note will be noted." My portion of the encounter took place via telemedicine. -Acute alcoholic pancreatitis: Patient feeling better today and wanted to advance diet. Soft diet ordered due to recent esophageal microperforation. Lap sarah planned for tomorrow by surgery. <TOO THRASHER - Last Filed: 12/22/23 18:04>
[2023-12-23 05:14] LABS: Absolute Neutrophil Ct (ANC) 4.79 x10^3/uL (1.4-6.9); BASOPHIL % 0.6 % (0.0-0.4); Basophil (Absolute #) 0.05 x10^3/uL (0-0.4); Eosinophil % 5.4 % (0.00-5.0); Eosinophil (Absolute #) 0.45 x10^3/uL (0-0.5); Hemoglobin 13.8 g/dL (12.0-16.0); IMMATURE GRAN # 0.04 x10^3u/L (0.00-0.03); IMMATURE GRAN % 0.5 % (0.00-0.4); Lymphocyte (Absolute #) 2.08 x10^3/uL (1.0-4.6); Lymphocytes % 24.9 % (24.0-44.0); Mean Cell Volume 92.9 fL (78-100); Mean Corpuscular Hemoglobin 30.5 pg (26-32); Mean Corpuscular Hgb Concent. 32.9 g/dL (32-36); Monocyte (Absolute #) 0.94 x10^3/uL (0.0-1.3); Monocytes % 11.3 % (0.0-12.0); Neutrophil % 57.3 % (36.0-66.0); Platelet Count 380 x10^3/uL (150-450); Red Blood Count 4.52 x10^6/uL (4.1-5.4); Red Cell Distribution Width 14.6 % (11.5-14.0); White Blood Count 8.4 x10^3/uL (4.0-10.5)
[2023-12-23 05:36] LABS: ALBUMIN 3.4 g/dL (3.5-5.0); ANION GAP 11.8 MEQ/L (5-15); BILIRUBIN,TOTAL 0.6 mg/dL (0.2-1.3); Calcium 9.3 mg/dL (8.4-10.2); Creatinine 1 0.57 mg/dL (0.52-1.04); EST GLOMERULAR FILTRATION RATE 122.2 ML/MIN; Potassium 3.5 mmol/L (3.5-5.1); Total Protein 6.5 g/dL (6.3-8.2)
--- NOTE | 2023-12-23 10:05 | PROG NOTE ---
DATE: 12/20/2023 HISTORY: She was seen and examined about 1800 hours. She looked good. She is experiencing about 4 over 5 pain at most. She certainly is better. Her amylase was 650 this morning. Her repeat chest CT scan did not show any free air which is good but it did show a small divot where the perforation is in the esophagus. This is Saturday. I would anticipate the amylase to come down to about between 75 to 425 tomorrow, probably in the low 200 range Saturday. I think we could do a laparoscopic cholecystectomy probably safely on Saturday. We could also do an EGD to evaluate the site of perforation in the esophagus and evaluate her by either gastric barium or scope and it will be in the order of about 7 to 8 days to be safe to lightly scope this out with the idea in mind that she does have a small esophageal rent. This is the plan. Check the amylase on Saturday and if she is doing well Saturday to proceed with laparoscopic cholecystectomy and EGD.
--- NOTE | 2023-12-23 13:38 | PCM.NOTE ---
Date and Time: 12/23/23 1333 - Review of Systems Constitutional: No Fever, No Chills Eyes: No Symptoms Ears, Nose, & Throat: No Symptoms Respiratory: No Cough, No Short Of Breath Cardiac: No Chest Pain, No Edema, No Syncope Abdominal/Gastrointestinal: Abdominal Pain, Nausea (LUQ, RUQ), No Vomiting, No Diarrhea Genitourinary Symptoms: No Dysuria Musculoskeletal: No Back Pain, No Neck Pain Skin: No Rash Neurological: No Dizziness, No Focal Weakness, No Sensory Changes Psychological: No Symptoms Endocrine: No Symptoms Hematologic/Lymphatic: No Symptoms Immunological/Allergic: No Symptoms Objective Exam General Appearance: no apparent distress, alert Neurologic Exam: alert, oriented x 3, cooperative, normal mood/affect, nml cerebellar function, sensation nml, No motor deficits Skin Exam: normal color, warm, dry Eye Exam: PERRL, EOMI, eyes nml inspection Ears, Nose, Throat Exam: normal ENT inspection, pharynx normal, moist mucous membranes Neck Exam: normal inspection, non-tender, supple, full range of motion Respiratory Exam: normal breath sounds, lungs clear, No respiratory distress Cardiovascular Exam: regular rate/rhythm, normal heart sounds Gastrointestinal/Abdomen Exam: soft, tenderness (LUQ, RUQ), No mass Extremity Exam: normal inspection, normal range of motion Back Exam: normal inspection, normal range of motion, No CVA tenderness, No vertebral tenderness Pelvic Exam: deferred Rectal Exam: deferred Objective Data Vital Signs: Vital Signs - 24 hr Temp Pulse Resp BP Pulse Ox 12/23/23 11:27 97 F 93 H 18 129/95 98 12/23/23 07:18 97.2 F 91 H 18 130/99 99 12/23/23 04:00 97.2 F 105 H 18 143/107 99 12/22/23 23:40 97.5 F 103 H 18 165/116 98 12/22/23 20:00 97.8 F 87 18 170/114 99 12/22/23 16:00 97.6 F 86 18 137/96 99 Pain Assessment - Last Documented Pain Intensity 10 Pain Scale Used 0-10 Pain Scale Intake and Output: Intake & Output 12/21/23 12/22/23 12/23/23 12/24/23 11:59 11:59 11:59 11:59 Intake Total 2823 1540 860 0 Output Total 400 Balance 2423 1540 860 0 Lab Results: Lab Results-Last 24 Hours 12/23/23 12/23/23 12/23/23 Range/Units 04:45 04:45 04:45 WBC 8.4 (4.0-10.5) x10^3/uL RBC 4.52 (4.1-5.4) x10^6/uL Hgb 13.8 (12.0-16.0) g/dL Hct 42.0 (35-47) % MCV 92.9 (78-100) fL MCH 30.5 (26-32) pg MCHC 32.9 (32-36) g/dL RDW 14.6 H (11.5-14.0) % Plt Count 380 (150-450) x10^3/uL MPV 10.0 (7.5-11.0) fL Gran % 57.3 (36.0-66.0) % Immature Gran % (Auto) 0.5 H (0.00-0.4) % Nucleat RBC Rel Count 0.0 (0.00-0.1) % Eos # (Auto) 0.45 (0-0.5) x10^3/uL Immature Gran # (Auto) 0.04 H (0.00-0.03) x10^3u/L Absolute Lymphs (auto) 2.08 (1.0-4.6) x10^3/uL Absolute Monos (auto) 0.94 (0.0-1.3) x10^3/uL Absolute Nucleated RBC 0.00 (0.00-0.01) x10^3u/L Lymphocytes % 24.9 (24.0-44.0) % Monocytes % 11.3 (0.0-12.0) % Eosinophils % 5.4 H (0.00-5.0) % Basophils % 0.6 (0.0-0.4) % Absolute Granulocytes 4.79 (1.4-6.9) x10^3/uL Basophils # 0.05 (0-0.4) x10^3/uL Sodium 138 (135-145) mmol/L Potassium 3.5 (3.5-5.1) mmol/L Chloride 103 (98-107) mmol/L Carbon Dioxide 26 (22-30) mmol/L Anion Gap 11.8 (5-15) MEQ/L BUN 7 (7-17) mg/dL Creatinine 0.57 (0.52-1.04) mg/dL Estimated GFR 122.2 ML/MIN Glucose 100 (74-106) mg/dL Calcium 9.3 (8.4-10.2) mg/dL Total Bilirubin 0.60 (0.2-1.3) mg/dL AST 48 H (14-36) U/L ALT 24 (0-35) U/L Alkaline Phosphatase 97 (38-126) U/L Serum Total Protein 6.5 (6.3-8.2) g/dL Albumin 3.4 L (3.5-5.0) g/dL Lipase 594 H (23-300) U/L Multi-Disciplinary Progress Notes: Multi-Disciplinary Progress Notes 12/23/23 10:45 (created 12/23/23 12:38) Case Management Note by Vira Campbell S/W PATIENT- SHE CONTINUES TO DENY ANY NEW NEEDS AT TIME OF DC. SHE REPORTS SHE WILL HAVE ASSISTANCE AT DC IF NEEDED Initialized on 12/23/23 12:38 - END OF NOTE Assessment/Plan (1) Cholelithiases Current Visit: Yes Status: Chronic Assessment & Plan: - Surgery plan for today EGD/Lap Sarah - narcotic pain control - PRN med for N/V - Abd. US Impression: 1. Cholelithiasis without cholecystitis or biliary distention.. 2. Fatty liver. (2) Esophageal perforation Current Visit: Yes Status: Acute Assessment & Plan: - Plan for follow-up as an outpatient with Dr. Romero - compazine PRN N/V - Zosyn IV - 12/[address]: Impression: 1. Probable stable mid esophageal perforation. Pneumomediastinum improved with tiny residual. 2. Again incidental fatty liver and cholelithiasis. Code(s): K22.3 - PERFORATION OF ESOPHAGUS (3) Pancreatitis Current Visit: Yes Status: Acute Qualifiers: Pancreatitis type: alcohol induced Acute pancreatitis complication: no infection or necrosis Assessment & Plan: - Lipase 594 trending down - NPO for procedure today Code(s): K85.90 - ACUTE PANCREATITIS WITHOUT NECROSIS OR INFECTION, UNSP (4) Anxiety and depression Current Visit: Yes Status: Chronic Assessment & Plan: - continue prozac Code(s): F41.9 - ANXIETY DISORDER, UNSPECIFIED; F32.A - DEPRESSION, UNSPECIFIED (5) HTN (hypertension) Current Visit: Yes Status: Chronic Assessment & Plan: - hydralizine PRN - 2:2 anxiety and pain - Will need to f/u OP VTE: SCD PPI: protonix Next of KIN: D/C plan: tomorrow Code status: Full Code(s): I10 - ESSENTIAL (PRIMARY) HYPERTENSION
[2023-12-23] MEDS: Lactated Ringers 1,000 ML IV SCH (13:45)
[2023-12-23] MEDS: Transderm Scop 1.5MG Patch TOP ONE (15:40)
[2023-12-23] MEDS: PROTONIX 40 MG IV IV SCH (15:40)
[2023-12-23] MEDS ORDERED: Sensorcaine 0.25% 10 ML ONE (15:49)
[2023-12-23] MEDS ORDERED: TORAdol 30 mg Injection ONE (16:04)
[2023-12-23] MEDS ORDERED: DIPRIVAN 200 MG/20 ML IV ONE (16:04)
[2023-12-23] MEDS ORDERED: BRIDION 200MG/2ML IV ONE (16:04)
[2023-12-23] MEDS ORDERED: ROCURONIUM BROMIDE IV ONE (16:04)
[2023-12-23] MEDS ORDERED: Decadron 4 MG INJ ONE (16:04)
[2023-12-23] MEDS ORDERED: Xylocaine-Mpf 2% 5 Ml Vial ONE (16:04)
[2023-12-23] MEDS ORDERED: Zofran 4 MG/2 ML VIAL ONE (16:04)
[2023-12-23] MEDS ORDERED: SUBLIMAZE 100 MCG/2 ML ONE (16:24)
[2023-12-23] MEDS ORDERED: Versed 2 MG/2 ML Injection ONE (16:24)
[2023-12-23] MEDS ORDERED: MEFOXIN 2 GM PREMIX IV ONE (16:32)
[2023-12-23] MEDS ORDERED: DEXMEDETOMIDINE 80 MCG/20ML-NS IV ONE (16:52)
[2023-12-23] MEDS ORDERED: Hydromorphone 1 mg/ml Injection ONE (17:17)
[2023-12-23] MEDS: D5W/0.45NS W/ 20mEq KCl 1000 ML 1,000 ML IV SCH (18:54)
[2023-12-23] MEDS: NORCO 5/325 MG PO PRN (18:54)
[2023-12-24] MEDS: MORPHINE SULFATE 2 MG INJ IV PRN (02:48)
[2023-12-24 04:28] LABS: ALBUMIN 3.5 g/dL (3.5-5.0); BILIRUBIN,TOTAL 0.4 mg/dL (0.2-1.3); Calcium 9.2 mg/dL (8.4-10.2); Creatinine 1 0.53 mg/dL (0.52-1.04); EST GLOMERULAR FILTRATION RATE 124.4 ML/MIN; Total Protein 6.8 g/dL (6.3-8.2)
[2023-12-24 04:33] LABS: Absolute Neutrophil Ct (ANC) 7.45 x10^3/uL (1.4-6.9); BASOPHIL % 0.1 % (0.0-0.4); Basophil (Absolute #) 0.01 x10^3/uL (0-0.4); Eosinophil (Absolute #) 0 x10^3/uL (0-0.5); Hematocrit 40.2 % (35-47); IMMATURE GRAN # 0.05 x10^3u/L (0.00-0.03); IMMATURE GRAN % 0.6 % (0.00-0.4); Lymphocyte (Absolute #) 0.63 x10^3/uL (1.0-4.6); Lymphocytes % 7.2 % (24.0-44.0); Mean Cell Volume 94.1 fL (78-100); Mean Corpuscular Hemoglobin 30.4 pg (26-32); Mean Corpuscular Hgb Concent. 32.3 g/dL (32-36); Monocyte (Absolute #) 0.62 x10^3/uL (0.0-1.3); Monocytes % 7.1 % (0.0-12.0); Platelet Count 392 x10^3/uL (150-450); Potassium 4.3 mmol/L (3.5-5.1); Red Blood Count 4.27 x10^6/uL (4.1-5.4); Red Cell Distribution Width 14.5 % (11.5-14.0); White Blood Count 8.8 x10^3/uL (4.0-10.5)
[2023-12-24 07:42] VITALS: BP 169/111; PULSE 76; RESP 16; TEMP 97.9
[2023-12-24] MEDS: NORCO 5/325 MG PO PRN (08:01)
--- NOTE | 2023-12-24 08:35 | PCM.DS ---
Discharge Summary Date of Admission: 12/20/23 18:45 Date of Discharge: 12/24/23 Admitting Physician: KRZYSZTOF DE LOS SANTOS MD Consults: Consults on Case 12/18/23 12:52 Consult Surgery ROUTINE Primary Care Provider: KIRSTIN VO Allergies Allergies No Known Drug Allergies Allergy (Verified 12/17/23 12:00) Hospital Summary - Hospital Course Hospital Course: 33-year-old woman with a history of depression presented to ER with nausea, vomiting, and esophageal perforation. Patient had onset Saturday morning 12/15 of severe nausea and vomiting, unable to tolerate any p.o., with frequent vomiting eventually progressing to bloody vomiting. No initial abdominal pain. She was in the emergency room, and had a CT abdomen pelvis that showed no abdominal findings but had evidence of possible small pockets of air around the esophagus suggestive of esophageal perforation. Patient was recommended for transfer to [facility], but patient left AGAINST MEDICAL ADVICE, as she was feeling better after receiving nausea medication. However, on 12/16 she awoke, with continued nausea, although less than previous day, came back to the ER. She had never had this kind of vomiting before. She noted that she had been drinking excessively on Saturday evening, she is unable to quantify exactly how much. She has never had problems in the past with alcoholic pancreatitis. She feels a lot better now, with no further nausea, and has a strong appetite currently. Upon patient's return to the ED, cardiothoracic surgeon Dr. Romero was called. Patient underwent CT chest with oral contrast, with no evidence of active extravasation, although small pockets of pneumomediastinum suggestive of prior esophageal perforation. CT abd/pelvis from 12/16/23 showing Impression distal esophageal circumferential wall thickening. Also tiny paraesophageal free air concerning for esophageal perforation. Mild distended gallbladder with gallstone and fatty liver. Per Dr. Romero, no need for acute intervention. Surgery consulted for cholelthiasis, and had a lap choly and EGD was done with Dr. Givens on 12/23/23. She continues to have LUQ and RUQ pain but this has improved with surgery. She is c/o gas related pains and encouraged pt to walk around unit to improve sxs. If ok with Surgeon pt can d/c today. She denies CP, SOB, N/V/D. - Vitals & Intake/Output Vital Signs: Vital Signs Temperature 97.9 F 12/24/23 07:00 Pulse Rate 76 12/24/23 07:00 Respiratory Rate 16 12/24/23 07:00 Blood Pressure 169/111 12/24/23 07:00 O2 Sat by Pulse Oximetry 99 12/24/23 07:00 Intake & Output: Intake & Output 12/21/23 12/22/23 12/23/23 12/24/23 11:59 11:59 11:59 11:59 Intake Total 2823 3011 346 9056 Output Total 400 Balance 2423 4435 305 0435 Weight 63.8 kg - Lab Result Diagrams: 12/24/23 04:10 12/24/23 04:10 Lab Results-Last 24 Hrs: Lab Results-Last 24 Hours 12/24/23 12/24/23 Range/Units 04:10 04:10 WBC 8.8 (4.0-10.5) x10^3/uL RBC 4.27 (4.1-5.4) x10^6/uL Hgb 13.0 (12.0-16.0) g/dL Hct 40.2 (35-47) % MCV 94.1 (78-100) fL MCH 30.4 (26-32) pg MCHC 32.3 (32-36) g/dL RDW 14.5 H (11.5-14.0) % Plt Count 392 (150-450) x10^3/uL MPV 10.0 (7.5-11.0) fL Gran % 85.0 H (36.0-66.0) % Immature Gran % (Auto) 0.6 H (0.00-0.4) % Nucleat RBC Rel Count 0.0 (0.00-0.1) % Eos # (Auto) 0 (0-0.5) x10^3/uL Immature Gran # (Auto) 0.05 H (0.00-0.03) x10^3u/L Absolute Lymphs (auto) 0.63 L (1.0-4.6) x10^3/uL Absolute Monos (auto) 0.62 (0.0-1.3) x10^3/uL Absolute Nucleated RBC 0.00 (0.00-0.01) x10^3u/L Lymphocytes % 7.2 L (24.0-44.0) % Monocytes % 7.1 (0.0-12.0) % Eosinophils % 0.0 (0.00-5.0) % Basophils % 0.1 (0.0-0.4) % Absolute Granulocytes 7.45 H (1.4-6.9) x10^3/uL Basophils # 0.01 (0-0.4) x10^3/uL Sodium 136 (135-145) mmol/L Potassium 4.3 D (3.5-5.1) mmol/L Chloride 106 (98-107) mmol/L Carbon Dioxide 21 L (22-30) mmol/L Anion Gap 13.0 (5-15) MEQ/L BUN 8 (7-17) mg/dL Creatinine 0.53 (0.52-1.04) mg/dL Estimated GFR 124.4 ML/MIN Glucose 153 H (74-106) mg/dL Calcium 9.2 (8.4-10.2) mg/dL Total Bilirubin 0.40 (0.2-1.3) mg/dL AST 60 H (14-36) U/L ALT 26 (0-35) U/L Alkaline Phosphatase 89 (38-126) U/L Serum Total Protein 6.8 (6.3-8.2) g/dL Albumin 3.5 (3.5-5.0) g/dL - Procedures and Test Procedures and Tests throughout Hospitalization: Therapy Orders & Screens 12/17/23 20:29 Smoking Cessation Education ONCE Comment: Diagnosis: Esophageal perforation, pneumomediastinum Smoking Status: Current every day smoker How long have you smoked: years Do you dip or chew tobacco: No If,Former Smoker,when did you quit: 4 yrs ago 12/23/23 18:05 Incentive Spirometry UD Comment: post op order Diagnosis: PANCREATITIS, Esophageal perforation, pneumomediastinum 12/23/23 18:07 RT Miscellaneous Order ROUTINE Comment: Physician Instructions: triflo Reason For Exam: Diagnosis: PANCREATITIS, Esophageal perforation, pneumomediastinum 12/24/23 07:28 PT Eval & Treat ( Order) ONCE Reason for Eval:: surgery yesterday - lap choly- any needs for home. Diagnosis: PANCREATITIS, Esophageal perforation, pneumomediastinum Discharge Exam General Appearance: no apparent distress, alert Neurologic Exam: alert, oriented x 3, cooperative, normal mood/affect, nml cerebellar function, sensation nml, No motor deficits Eye Exam: PERRL, EOMI, eyes nml inspection Ears, Nose, Throat Exam: normal ENT inspection, pharynx normal, moist mucous membranes Neck Exam: normal inspection, non-tender, supple, full range of motion Respiratory Exam: normal breath sounds, lungs clear, No respiratory distress Cardiovascular Exam: regular rate/rhythm, normal heart sounds Gastrointestinal/Abdomen Exam: soft, tenderness, No mass Pelvic Exam: deferred Rectal Exam: deferred Back Exam: normal inspection, normal range of motion, No CVA tenderness, No vertebral tenderness Extremity Exam: normal inspection, normal range of motion Skin Exam: normal color, warm, dry Final Diagnosis/Problem List - Final Discharge Diagnosis/Problem (1) Cholelithiases Current Visit: Yes Status: Chronic (2) Esophageal perforation Current Visit: Yes Status: Acute Code(s): K22.3 - PERFORATION OF ESOPHAGUS (3) Pancreatitis Current Visit: Yes Status: Acute Code(s): K85.90 - ACUTE PANCREATITIS WITHOUT NECROSIS OR INFECTION, UNSP (4) Anxiety and depression Current Visit: Yes Status: Chronic Code(s): F41.9 - ANXIETY DISORDER, UNSPECIFIED; F32.A - DEPRESSION, UNSPECIFIED (5) HTN (hypertension) Current Visit: Yes Status: Chronic Assessment & Plan: (1) Cholelithiases Current Visit: Yes Status: Chronic Assessment & Plan: - Surgery plan for today EGD/Lap Sarah 12/22 - narcotic pain control - PRN med for N/V - Abd. US Impression: 1. Cholelithiasis without cholecystitis or biliary distention.. 2. Fatty liver. 12/23 - gas pains - encouraged pt to walk more to help with sxs - eating and drinking well. - If ok with GS can d/c today (2) Esophageal perforation Current Visit: Yes Status: Acute Assessment & Plan: - Plan for follow-up as an outpatient with Dr. Romero - compazine PRN N/V - Zosyn IV - 12/[address]: Impression: 1. Probable stable mid esophageal perforation. Pneumomediastinum improved with tiny residual. 2. Again incidental fatty liver and cholelithiasis. Code(s): K22.3 - PERFORATION OF ESOPHAGUS (3) Pancreatitis Current Visit: Yes Status: Acute Qualifiers: Pancreatitis type: alcohol induced Acute pancreatitis complication: no infection or necrosis Assessment & Plan: - Lipase 594 trending down - NPO for procedure today 12/22 12/23 - eating and drinking well today Code(s): K85.90 - ACUTE PANCREATITIS WITHOUT NECROSIS OR INFECTION, UNSP (4) Anxiety and depression Current Visit: Yes Status: Chronic Assessment & Plan: - continue prozac Code(s): F41.9 - ANXIETY DISORDER, UNSPECIFIED; F32.A - DEPRESSION, UNSPECIFIED (5) HTN (hypertension) Current Visit: Yes Status: Chronic Assessment & Plan: - hydralizine PRN - 2:2 anxiety and pain - Will need to f/u OP Code(s): I10 - ESSENTIAL (PRIMARY) HYPERTENSION - Discharge Discharge Date: 12/24/23 Disposition: Home, Self-Care Condition: Stable Prescriptions: New Prochlorperazine Maleate 5 mg* [Compazine 5 MG] 5 mg PO Q6HPRN PRN 8 Days #30 tablet PRN Reason: Nausea/Vomiting Continue Fluoxetine HCl 20 mg [Prozac 20 MG] 20 mg PO DAILY Folic Acid 1 mg [Folate 1 mg] 1 mg PO DAILY Cholecalciferol (Vitamin D3) [Vitajoy Daily D] 25 mcg PO DAILY Thiamine Mononitrate (Vit B1) [Vitamin B-1] 100 mg PO DAILY Fluoxetine HCl 20 mg PO DAILY Follow up with: JOEY GIVENS [ACTIVE STAFF] - 01/02/24 9:00 am KIRSTIN VO [Primary Care Provider] - 01/02/24 11:00 am ( will see Melody Wasserman NP)
[2023-12-24 09:29] VITALS: O2SAT 96
[2023-12-24] MEDS: ENOXAPARIN SODIUM SQ SCH (10:08)
--- NOTE | 2023-12-24 13:29 | OP ---
SURGERY DATE/TIME: 12/23/2023 1646 PREOPERATIVE DIAGNOSIS: Gallstone pancreatitis, recent esophageal perforation. POSTOPERATIVE DIAGNOSES: 1) Gallstones. 2) The patient had some mild dysplasia of the esophagus. The fulguration site has healed at this time. PROCEDURES: 1) Laparoscopic cholecystectomy. 2) EGD. SURGEON: Denny Givens M.D. ANESTHESIA: General endotracheal tube - Devendra Mathis CRNA. COMPLICATIONS: None. CONDITION: Stable. INDICATION: The patient shown both a small esophageal perforation and pancreatitis. She does have gallstones. Her pancreatitis has settled. She has been only maintained on full liquids. There is a small defect on CT scan at the area of the presumed sites of perforation. The mediastinitis has cleared. She was offered surgery for laparoscopic cholecystectomy and EGD. DESCRIPTION OF PROCEDURE: The laparoscopic cholecystectomy was done first. Verses needle inserted. Opening pressure of 1, insufflating pressure 14. Four - 5's. Good visualization. Cystic duct defined. Cystic artery defined. Both structures triply clipped and transected. Clips noted across and well approximated. Gallbladder rolled out of gallbladder fossa. Gallbladder delivered through upper abdominal port with minimal widening. Hole closure was not necessary. Skin closed with 4-0 Vicryl and Steri-Strips. The scope was introduced. The upper esophagus was satisfactory. The lower 6 cm with a very light irritation. I did not see a specific defect and maybe it is healed at this time. Fundus, body, antrum, pylorus, duodenal bulb and second portion normal. Scope withdrawn back to the esophagus. Again, just a light inflammation. The patient tolerated the procedure satisfactorily.
== END 2023-12-24 12:05 | disposition home or self-care (01) | DRG 417 ==
LOC: ED 10:30 → MED SURG 19:37 → ED 12-20 10:30 → OBSVTOIN 12-20 18:45 → MED SURG 12-20 19:37
PROVIDERS: ADMIT Internal Medicine; ATTEND Internal Medicine
PROC: 0FT44ZZ Resection of Gallbladder, Percutaneous Endoscopic Approach (ICD-10-PCS; principal; 2023-12-23)
PROC: 0DJ08ZZ Inspection of Upper Intestinal Tract, Via Natural or Artificial Opening Endoscopic (ICD-10-PCS; 2023-12-23)
DX: K80.20 Calculus of gallbladder without cholecystitis without obstruction (principal); K22.3 Perforation of esophagus; K85.90 Acute pancreatitis without necrosis or infection, unspecified; F41.9 Anxiety disorder, unspecified; I10 Essential (primary) hypertension; F17.200 Nicotine dependence, unspecified, uncomplicated; Z79.899 Other long term (current) drug therapy; Z20.828 Contact with and (suspected) exposure to other viral communicable diseases
CPT/HCPCS: 36000; 36415; 71250; 76705; 80048; 80053; 80061; 80076; 82150; 83690; 83721; 83735; 84132; 84484; 85025; 85027; 96374; 96375; 99285; G0378; J0694; J1100; J1170; J1885; J2250; J2270; J2405; J2704; J3010; J3480; Q3014; A9270-GY

== ENCOUNTER 2023-12-29 18:52 | Emergency (ER) | payer BC | END 2023-12-29 19:11 | disposition left against medical advice (07) | LOC: ED 18:52 | DX: Z53.21 Procedure and treatment not carried out due to patient leaving prior to being seen by health care provider (principal) | CPT/HCPCS: 99281 ==

== ENCOUNTER 2024-01-01 11:35 | Emergency (ER) | payer BC ==
[2024-01-01 12:06] VITALS: PULSE 114; TEMP 98
[2024-01-01] MEDS ORDERED: MORPHINE SULFATE 4 MG INJ ONE ×2 (12:32→13:14)
[2024-01-01] MEDS ORDERED: Zofran 4 MG/2 ML VIAL ONE ×2 (12:32→14:50)
[2024-01-01] MEDS ORDERED: Sodium Chloride 0.9% 1000 ML 1,000 ML ONE (12:32)
[2024-01-01 12:33] LABS: Absolute Neutrophil Ct (ANC) 9.11 x10^3/uL (1.4-6.9); BASOPHIL % 0.9 % (0.0-0.4); Eosinophil % 1.7 % (0.00-5.0); Hematocrit 44.8 % (35-47); Hemoglobin 14.8 g/dL (12.0-16.0); IMMATURE GRAN # 0.08 x10^3u/L (0.00-0.03); IMMATURE GRAN % 0.7 % (0.00-0.4); Lymphocytes % 12.1 % (24.0-44.0); Mean Cell Volume 91.4 fL (78-100); Mean Corpuscular Hemoglobin 30.2 pg (26-32); Mean Platelet Volume 9.9 fL (7.5-11.0); Monocyte (Absolute #) 0.71 x10^3/uL (0.0-1.3); Monocytes % 6.1 % (0.0-12.0); Neutrophil % 78.5 % (36.0-66.0); Platelet Count 581 x10^3/uL (150-450); Red Cell Distribution Width 13.9 % (11.5-14.0); White Blood Count 11.6 x10^3/uL (4.0-10.5)
[2024-01-01] MEDS: Sodium Chloride 0.9% 1000 ML 1,000 ML IV STA (12:33)
[2024-01-01] MEDS: MORPHINE SULFATE 4 MG INJ IV ONE ×2 (12:34→13:15)
[2024-01-01] MEDS: Zofran 4 MG/2 ML VIAL IV ONE ×2 (12:34→14:51)
[2024-01-01 12:43] LABS: ALBUMIN 3.9 g/dL (3.5-5.0); ANION GAP 15.5 MEQ/L (5-15); BILIRUBIN,TOTAL 0.4 mg/dL (0.2-1.3); Calcium 8.8 mg/dL (8.4-10.2); Creatinine 1 0.56 mg/dL (0.52-1.04); EST GLOMERULAR FILTRATION RATE 122.7 ML/MIN; Potassium 3.6 mmol/L (3.5-5.1); Total Protein 7.5 g/dL (6.3-8.2)
[2024-01-01 13:32] LABS: HCG SERUM TEST NEGATIVE (NEGATIVE)
--- NOTE | 2024-01-01 14:18 | XRAY ---
Indication: Abdomen pain and vomiting. Status post cholecystectomy one week. Multiple contiguous axial images obtained through the abdomen and pelvis using 80 cc Isovue 370 contrast. Comparison: December 16, 2023 Lung bases now clear. Heart not enlarged. No paraesophageal free air. Noncontrasted stomach and bowel loops appear nonobstructed again with normal appendix. Interval cholecystectomy. Again diffuse fatty liver. No free fluid/air. Remaining liver, pancreas, spleen, adrenal glands, kidneys, ureters, bladder, uterus, and aorta are unremarkable. Impression: 1. Status post cholecystectomy without complications. 2. Again fatty liver. 3. Remaining CT abdomen/pelvis with contrast exam is negative.
[2024-01-01 14:27] LABS: Appearance Clear (Clear); Bacteria None Seen /HPF (None Seen); Bilirubin Negative (Negative); Blood Negative (Negative); Epithelial Cells None Seen /HPF (None Seen); Glucose, Urine Negative (Negative); Hyaline Casts NONE SEEN /LPF (0-2); Ketones Negative (Negative); Leukocyte Esterase Negative (Negative); Nitrite Negative (Negative); Protein,Urine Dip Negative (Negative); RBC 0-2 /HPF (0-5); Specific Gravity >=1.030 (1.005-1.030); Urobilinogen 0.2 mg/dL (0.2); WBC 0-2 /HPF (0-5)
[2024-01-01 14:47] LABS: ADD URINE CULTURE? NO (NO)
--- NOTE | 2024-01-01 14:52 | ERPHSYRPT ---
- History of Present Illness Time Seen by Provider: 01/01/24 12:10 Historian: patient Exam Limitations: no limitations Patient Subjective Stated Complaint: Pt states that she had her gallbladder out last week and had some tears in her esophagus and by the time she was discharged 8 days ago she was able to eat and was better, pt woke today and is unable to keep anything down and her abdomen hurts like someone is stabbing her Triage Nursing Assessment: Pt was brought to the ER by a family member, hypertensive, tachycardic, rates abdominal pain as 8/10, pt appears to be in significant pain, surgery cuts appear to be healing well, pulses normal, N&V, diarrhea, pt walked into the ER with a stable gait Physician History: 33 years old female with recent laparoscopic cholecystectomy presented in the ER with complains of upper abdominal pain waking her up from sleep this morning with multiple episodes of nonprojectile, nonbilious vomiting without hematemesis. Patient reports she is not able to hold anything down, reports 78/10 intensity pain with no significant aggravating or relieving factors. Nonradiating. Denies associated fever or chills. No chest pain. Allergies/Adverse Reactions: No Known Drug Allergies Allergy (Verified 01/01/24 12:06) Home Medications: Cholecalciferol (Vitamin D3) [Vitajoy Daily D] 25 mcg PO DAILY 12/16/23 [History] Fluoxetine HCl 20 mg [Prozac 20 MG] 20 mg PO DAILY 12/16/23 [History] Folic Acid 1 mg [Folate 1 mg] 1 mg PO DAILY 12/16/23 [History] Fluoxetine HCl 20 mg PO DAILY 12/17/23 [History] Thiamine Mononitrate (Vit B1) [Vitamin B-1] 100 mg PO DAILY 12/17/23 [History] Hx Tetanus, Diphtheria Vaccination/Date Given: Yes Hx Influenza Vaccination/Date Given: No Hx Pneumococcal Vaccination/Date Given: No Travel Risk - International Travel Have you traveled outside of the country in past 3 weeks: No - Emerging Infectious Disease Are you exhibiting symptoms associated with any current EIDs: No - Review of Systems Constitutional: Fatigue Eyes: No Symptoms Ears, Nose, & Throat: No Symptoms Respiratory: No Symptoms Cardiac: No Symptoms Abdominal/Gastrointestinal: Abdominal Pain, Nausea, Vomiting Genitourinary Symptoms: No Symptoms Musculoskeletal: No Symptoms Skin: No Symptoms Neurological: No Symptoms Endocrine: No Symptoms Hematologic/Lymphatic: No Symptoms Immunological/Allergic: No Symptoms - Past Medical History Pertinent Past Medical History: Yes Neurological History: Migraines ENT History: No Pertinent History Cardiac History: No Pertinent History Respiratory History: No Pertinent History Endocrine Medical History: No Pertinent History Musculoskeletal History: No Pertinent History GI Medical History: No Pertinent History, Gallbladder Disease History: No Pertinent History Psycho-Social History: Anxiety, Bipolar, Depression, Other Female Reproductive Disorders: No Pertinent History Other Medical History: mulitpersonality disorder - Past Surgical History Past Surgical History: No Neuro Surgical History: No Pertinent History Cardiac: No Pertinent History Respiratory: No Pertinent History Gastrointestinal: Cholecystectomy Genitourinary: No Pertinent History Musculoskeletal: No Pertinent History Female Surgical History: No Pertinent History Significant Family History: no pertinent family hx - Female History Hx Last Menstrual Period: week ago Hx Now: (unkn) - Social History Smoking Status: Current every day smoker How long have you smoked: years Exposure to second hand smoke: No Drug Use: none Patient Lives Alone: No - Nursing Vital Signs Nursing Vital Signs: Initial Vital Signs Temperature 98.0 F 01/01/24 11:56 Pulse Rate 114 H 01/01/24 11:56 Blood Pressure 145/114 01/01/24 11:56 O2 Sat by Pulse Oximetry 98 01/01/24 11:56 Pain Scale Pain Intensity 8 - Physical Exam General Appearance: no apparent distress, alert Eye Exam: PERRL/EOMI Ears, Nose, Throat Exam: normal ENT inspection Neck Exam: normal inspection, supple, full range of motion Respiratory Exam: normal breath sounds, lungs clear Cardiovascular Exam: regular rate/rhythm, normal heart sounds Gastrointestinal/Abdomen Exam: soft, normal bowel sounds, tenderness (Epigastric/right upper quadrant/periumbilical area) Back Exam: normal inspection, normal range of motion Extremity Exam: normal inspection, normal range of motion Neurologic Exam: alert, oriented x 3, cooperative, screw machine adjuster automatic II-XII nml as tested Skin Exam: normal color SpO2 Interpretation: normal SpO2: 99 O2 Delivery: Room Air Ordered Tests: Active Orders 24 hr Category Date Time Status IV Insertion STAT Care 01/01/24 12:28 Active NPO (ED) STAT Care 01/01/24 12:28 Active ABDOMEN AND PELVIS W CONTRAST [CT] Stat Exams 01/01/24 12:29 Completed CBC W DIFF Stat Lab 01/01/24 12:15 Completed CMP Stat Lab 01/01/24 12:15 Completed HCG QUALITATIVE, SERUM Stat Lab 01/01/24 Completed LIPASE Stat Lab 01/01/24 12:15 Completed UA W/RFX UR CULTURE Stat Lab 01/01/24 14:17 Completed Medication Summary Discontinued Medications Generic Name Dose Route Start Last Admin Trade Name Lu PRN Reason Stop Dose Admin Sodium Chloride 1,000 mls @ 999 mls/hr 01/01/24 12:28 01/01/24 13:33 Sodium Chloride 0.9% 1000 Ml IV 01/01/24 13:28 Infused .Q1H1M STA Infusion Sodium Chloride Confirm 01/01/24 12:32 Sodium Chloride 0.9% 1000 Ml Administered 01/01/24 12:33 Dose 1,000 mls @ ud .ROUTE .STK-MED ONE Morphine Sulfate 4 mg 01/01/24 12:28 01/01/24 12:34 Morphine Sulfate 4 Mg/Ml Injection IV 01/01/24 12:29 4 mg STAT ONE Administration Morphine Sulfate Confirm 01/01/24 12:32 Morphine Sulfate 4 Mg/Ml Injection Administered 01/01/24 12:33 Dose 4 mg .ROUTE .STK-MED ONE Morphine Sulfate 4 mg 01/01/24 13:05 01/01/24 13:15 Morphine Sulfate 4 Mg/Ml Injection IV 01/01/24 13:06 4 mg STAT ONE Administration Morphine Sulfate Confirm 01/01/24 13:14 Morphine Sulfate 4 Mg/Ml Injection Administered 01/01/24 13:15 Dose 4 mg .ROUTE .STK-MED ONE Ondansetron HCl 4 mg 01/01/24 12:28 01/01/24 12:34 Ondansetron Hcl 4 Mg/2 Ml Vial IV 01/01/24 12:29 4 mg STAT ONE Administration Ondansetron HCl Confirm 01/01/24 12:32 Ondansetron Hcl 4 Mg/2 Ml Vial Administered 01/01/24 12:33 Dose 4 mg .ROUTE .STK-MED ONE Ondansetron HCl 4 mg 01/01/24 14:49 01/01/24 14:51 Ondansetron Hcl 4 Mg/2 Ml Vial IV 01/01/24 14:50 4 mg STAT ONE Administration Ondansetron HCl Confirm 01/01/24 14:50 Ondansetron Hcl 4 Mg/2 Ml Vial Administered 01/01/24 14:51 Dose 4 mg .ROUTE .K-MED ONE Lab/Rad Data: Laboratory Result Diagrams 01/01/24 12:15 01/01/24 12:15 Laboratory Results 01/01/24 01/01/24 01/01/24 Range/Units Unknown 14:17 12:15 WBC (4.0-10.5) x10^3/uL RBC (4.1-5.4) x10^6/uL Hgb (12.0-16.0) g/dL Hct (35-47) % MCV (78-100) fL MCH (26-32) pg MCHC (32-36) g/dL RDW (11.5-14.0) % Plt Count (150-450) x10^3/uL MPV (7.5-11.0) fL Gran % (36.0-66.0) % Immature Gran % (Auto) (0.00-0.4) % Nucleat RBC Rel Count (0.00-0.1) % Eos # (Auto) (0-0.5) x10^3/uL Immature Gran # (Auto) (0.00-0.03) x10^3u/L Absolute Lymphs (auto) (1.0-4.6) x10^3/uL Absolute Monos (auto) (0.0-1.3) x10^3/uL Absolute Nucleated RBC (0.00-0.01) x10^3u/L Lymphocytes % (24.0-44.0) % Monocytes % (0.0-12.0) % Eosinophils % (0.00-5.0) % Basophils % (0.0-0.4) % Absolute Granulocytes (1.4-6.9) x10^3/uL Basophils # (0-0.4) x10^3/uL Sodium 139 (135-145) mmol/L Potassium 3.6 (3.5-5.1) mmol/L Chloride 105 (98-107) mmol/L Carbon Dioxide 22 (22-30) mmol/L Anion Gap 15.5 H (5-15) MEQ/L BUN 4 L (7-17) mg/dL Creatinine 0.56 (0.52-1.04) mg/dL Estimated GFR 122.7 ML/MIN Glucose 110 H (74-106) mg/dL Calcium 8.8 (8.4-10.2) mg/dL Total Bilirubin 0.40 (0.2-1.3) mg/dL AST 286 H (14-36) U/L ALT 63 H (0-35) U/L Alkaline Phosphatase 127 H (38-126) U/L Serum Total Protein 7.5 (6.3-8.2) g/dL Albumin 3.9 (3.5-5.0) g/dL Lipase 286 (23-300) U/L Serum HCG, Qual NEGATIVE (NEGATIVE) Urine Color Yellow (Yellow) Urine Appearance Clear (Clear) Urine pH 7.0 (4.6-8.0) Ur Specific [place] >=1.030 A (1.005-1.030) Urine Protein Negative (Negative) Urine Glucose (UA) Negative (Negative) mg/dL Urine Ketones Negative (Negative) Urine Blood Negative (Negative) Urine Nitrite Negative (Negative) Urine Bilirubin Negative (Negative) Urine Urobilinogen 0.2 (0.2) mg/dL Ur Leukocyte Esterase Negative (Negative) U Hyaline Cast (Auto) NONE SEEN (0-2) /LPF Urine Microscopic RBC 0-2 (0-5) /HPF Urine Microscopic WBC 0-2 (0-5) /HPF Ur Epithelial Cells None Seen (None Seen) /HPF Urine Bacteria None Seen (None Seen) /HPF Urine Culture Reflexed NO (NO) 01/01/24 Range/Units 12:15 WBC 11.6 H (4.0-10.5) x10^3/uL RBC 4.90 (4.1-5.4) x10^6/uL Hgb 14.8 (12.0-16.0) g/dL Hct 44.8 (35-47) % MCV 91.4 (78-100) fL MCH 30.2 (26-32) pg MCHC 33.0 (32-36) g/dL RDW 13.9 (11.5-14.0) % Plt Count 581 H (150-450) x10^3/uL MPV 9.9 (7.5-11.0) fL Gran % 78.5 H (36.0-66.0) % Immature Gran % (Auto) 0.7 H (0.00-0.4) % Nucleat RBC Rel Count 0.0 (0.00-0.1) % Eos # (Auto) 0.20 (0-0.5) x10^3/uL Immature Gran # (Auto) 0.08 H (0.00-0.03) x10^3u/L Absolute Lymphs (auto) 1.40 (1.0-4.6) x10^3/uL Absolute Monos (auto) 0.71 (0.0-1.3) x10^3/uL Absolute Nucleated RBC 0.00 (0.00-0.01) x10^3u/L Lymphocytes % 12.1 L (24.0-44.0) % Monocytes % 6.1 (0.0-12.0) % Eosinophils % 1.7 (0.00-5.0) % Basophils % 0.9 (0.0-0.4) % Absolute Granulocytes 9.11 H (1.4-6.9) x10^3/uL Basophils # 0.10 (0-0.4) x10^3/uL Sodium (135-145) mmol/L Potassium (3.5-5.1) mmol/L Chloride (98-107) mmol/L Carbon Dioxide (22-30) mmol/L Anion Gap (5-15) MEQ/L BUN (7-17) mg/dL Creatinine (0.52-1.04) mg/dL Estimated GFR ML/MIN Glucose (74-106) mg/dL Calcium (8.4-10.2) mg/dL Total Bilirubin (0.2-1.3) mg/dL AST (14-36) U/L ALT (0-35) U/L Alkaline Phosphatase (38-126) U/L Serum Total Protein (6.3-8.2) g/dL Albumin (3.5-5.0) g/dL Lipase (23-300) U/L Serum HCG, Qual (NEGATIVE) Urine Color (Yellow) Urine Appearance (Clear) Urine pH (4.6-8.0) Ur Specific [place] (1.005-1.030) Urine Protein (Negative) Urine Glucose (UA) (Negative) mg/dL Urine Ketones (Negative) Urine Blood (Negative) Urine Nitrite (Negative) Urine Bilirubin (Negative) Urine Urobilinogen (0.2) mg/dL Ur Leukocyte Esterase (Negative) U Hyaline Cast (Auto) (0-2) /LPF Urine Microscopic RBC (0-5) /HPF Urine Microscopic WBC (0-5) /HPF Ur Epithelial Cells (None Seen) /HPF Urine Bacteria (None Seen) /HPF Urine Culture Reflexed (NO) - Progress Progress: improved Progress Note: 01/01/24 14:48 33-year-old is evaluated for upper abdominal pain with nausea vomiting since morning and recent laparoscopic cholecystectomy. Patient is given symptomatic treatment along with fluids, on reevaluation her pain is much improved. No peritoneal signs on repeated evaluation. Workup showed white count of 11, fairly unremarkable chemistries except for elevated transaminases. Normal lipase. I have obtained CT abdomen pelvis which is negative for any acute intra-abdominal pelvic findings. I do not know the exact cause of her symptoms, could be viral etiology, recommended taking Tylenol and Zofran at home with increase hydration and outpatient follow-up. Discussed signs symptoms of worsening needing return to ER which she seems understanding. Counseled pt/family regarding: lab results, diagnosis, need for follow-up, rad results Medical Desision Making - Diagnostic Testing Diagnostic test were ordered, analyzed, and reviewed by me: Yes Radiological Interpretation: Reviewed by me - Risk of complications The pt has a mod risk of morbidity or mortality based on: Need for prescription drug management - Departure Departure Disposition: Home Clinical Impression: Upper abdominal pain, Nausea & vomiting, Elevated transaminase level Condition: Stable Critical Care Time: No Referrals: KIRSTIN VO [Primary Care Provider] - Follow up with PCP 1 day Instructions: Nausea and Vomiting, Adult (DC) Additional Instructions: Drink plenty of fluids to keep yourself well-hydrated. Follow-up with your primary care and primary surgeon as recommended. Get your liver functions test rechecked in 5 days. Return to ER for intractable abdominal pain/vomiting/fever chills etc. Prescriptions: Ondansetron ODT 4 MG [Zofran Odt 4 mg] 1 ea PO QIDPRN PRN #10 tablet PRN Reason: n/v
[2024-01-01 15:10] VITALS: BP 149/113
[2024-01-01 15:15] VITALS: O2SAT 99
== END 2024-01-01 15:28 | disposition home or self-care (01) ==
LOC: ED 11:35
DX: R11.2 Nausea with vomiting, unspecified (principal); R10.10 Upper abdominal pain, unspecified; R74.01 Elevation of levels of liver transaminase levels; Z79.899 Other long term (current) drug therapy; Z72.0 Tobacco use
CPT/HCPCS: 36000; 36415; 74177; 80053; 81001; 83690; 84703; 85025; 96374; 96375; 96376; 99284; J2270; J2405

== ENCOUNTER 2024-01-13 07:55 | Emergency (ER) | payer BC ==
--- NOTE | 2024-01-13 08:00 | ERPHSYRPT ---
- History of Present Illness Time Seen by Provider: 01/13/24 08:00 Historian: patient Exam Limitations: no limitations Physician History: This is a 33-year-old white female patient of Dr. Vo who has been having chest pain in the last 2 or 3 days. She states that her chest does not feel right today but is not necessarily complaining of pain per her report. In furth er discussion, it turns out patient has been using narcotic pain medicine from 3 different physicians. She has not discussed this with the 3 physicians and it appears as though unknowingly, all 3 physicians have been prescribing her narcotic pain medicine to control her abdominal pain status post laparoscopic cholecystectomy. Patient states that she was told that she has had pancreatitis. She states she has not yet finished her antibiotics to treat the pancreatitis. In the last 2 to 3 weeks she has been seen in at least 3 different emergency departments that she admits to. Again, she currently is not have any chest pain. She is not short of breath. Patient does have a history in the past of narcotic abuse and has had rehab. She does wonder if maybe she is having a degree of withdraw and panic attack. Patient has a history gastroesophageal reflux disease, anxiety, bipolar disorder, multiple times personality disorder, depression, migraine headaches. Patient has no documented history of coronary artery disease. Activities at Onset: none Severity of Pain-Max: none Severity of Pain-Current: none Modifying Factors: Improves With: nothing Associated Symptoms: denies symptoms Prior Chest Pain/Cardiac Workup: no prior chest pain Nitro Today/Relief: no nitro taken today Aspirin Treatment Today: no aspirin today Allergies/Adverse Reactions: No Known Drug Allergies Allergy (Verified 01/13/24 08:01) Home Medications: Cholecalciferol (Vitamin D3) [Vitajoy Daily D] 25 mcg PO DAILY 12/16/23 [History] Fluoxetine HCl 20 mg [Prozac 20 MG] 20 mg PO DAILY 12/16/23 [History] Folic Acid 1 mg [Folate 1 mg] 1 mg PO DAILY 12/16/23 [History] Fluoxetine HCl 20 mg PO DAILY 12/17/23 [History] Thiamine Mononitrate (Vit B1) [Vitamin B-1] 100 mg PO DAILY 12/17/23 [History] Hx Tetanus, Diphtheria Vaccination/Date Given: Yes Hx Influenza Vaccination/Date Given: No Hx Pneumococcal Vaccination/Date Given: No Travel Risk - International Travel Have you traveled outside of the country in past 3 weeks: No - Emerging Infectious Disease Are you exhibiting symptoms associated with any current EIDs: No - Review of Systems Constitutional: No Symptoms Eyes: No Symptoms Ears, Nose, & Throat: No Symptoms Respiratory: No Symptoms Cardiac: Palpitations Abdominal/Gastrointestinal: No Symptoms Genitourinary Symptoms: No Symptoms Musculoskeletal: No Symptoms Skin: No Symptoms Neurological: No Symptoms Psychological: No Symptoms Endocrine: No Symptoms Hematologic/Lymphatic: No Symptoms Immunological/Allergic: No Symptoms All Other Systems: Reviewed and Negative - Past Medical History Pertinent Past Medical History: Yes Neurological History: Migraines ENT History: No Pertinent History Cardiac History: No Pertinent History Respiratory History: No Pertinent History Endocrine Medical History: No Pertinent History Musculoskeletal History: No Pertinent History GI Medical History: No Pertinent History, Gallbladder Disease History: No Pertinent History Psycho-Social History: Anxiety, Bipolar, Depression, Other Female Reproductive Disorders: No Pertinent History Other Medical History: mulitpersonality disorder - Past Surgical History Past Surgical History: No Neuro Surgical History: No Pertinent History Cardiac: No Pertinent History Respiratory: No Pertinent History Gastrointestinal: Cholecystectomy Genitourinary: No Pertinent History Musculoskeletal: No Pertinent History Female Surgical History: No Pertinent History Significant Family History: no pertinent family hx - Social History Smoking Status: Current every day smoker How long have you smoked: years Exposure to second hand smoke: No Drug Use: none Patient Lives Alone: No - Nursing Vital Signs Nursing Vital Signs: Initial Vital Signs Temperature 97.5 F 01/13/24 08:02 Pulse Rate 128 H 01/13/24 08:02 Respiratory Rate 23 01/13/24 08:02 Blood Pressure 145/96 01/13/24 08:02 O2 Sat by Pulse Oximetry 98 01/13/24 08:02 Pain Scale Pain Intensity 8 - Physical Exam General Appearance: no apparent distress, alert, anxiety Eye Exam: PERRL/EOMI, eyes nml inspection Ears, Nose, Throat Exam: normal ENT inspection, moist mucous membranes Neck Exam: normal inspection, non-tender, supple, full range of motion Respiratory Exam: normal breath sounds, lungs clear, airway intact, No chest tenderness, No respiratory distress Cardiovascular Exam: tachycardia Pelvic Exam: not done Rectal Exam: not done Back Exam: normal inspection, normal range of motion, CVA tenderness Extremity Exam: normal inspection, normal range of motion, pelvis stable Neurologic Exam: alert, oriented x 3, cooperative, 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 STAT Care 01/13/24 08:04 Active EKG-ER Only STAT Care 01/13/24 08:03 Active IV Insertion STAT Care 01/13/24 08:03 Active Pulse Oximetry (ED) STAT Care 01/13/24 08:03 Active CHEST WITH CONTRAST [CT] Stat Exams 01/13/24 09:05 Taken AMYLASE Stat Lab 01/13/24 08:09 Completed CBC W DIFF Stat Lab 01/13/24 08:09 Completed CMP Stat Lab 01/13/24 08:09 Completed D-DIMER QUANTITATIVE Stat Lab 01/13/24 08:09 Completed LIPASE Stat Lab 01/13/24 08:09 Completed MAGNESIUM Stat Lab 01/13/24 08:09 Completed PROTIME WITH INR Stat Lab 01/13/24 08:09 Completed TROPONIN Q4H Lab 01/13/24 08:09 Completed TROPONIN Q4H Lab 01/13/24 12:15 Ordered TROPONIN Q4H Lab 01/13/24 16:15 Ordered TSH [TSH, 3RD Generation] Stat Lab 01/13/24 08:09 Completed UA W/RFX UR CULTURE Stat Lab 01/13/24 09:43 Completed Urine Triage Profile Stat Lab 01/13/24 08:33 Completed Medication Summary Discontinued Medications Generic Name Dose Route Start Last Admin Trade Name Freq PRN Reason Stop Dose Admin Aspirin 324 mg 01/13/24 08:03 01/13/24 08:19 Aspirin 81 Mg Tab.Chew PO 01/13/24 08:04 324 mg STAT ONE Administration Aspirin Confirm 01/13/24 08:47 Aspirin 81 Mg Tab.Chew Administered 01/13/24 08:48 Dose 324 mg .ROUTE .STK-MED ONE Sodium Chloride 1,000 mls @ 999 mls/hr 01/13/24 08:29 01/13/24 09:52 Sodium Chloride 0.9% 1000 Ml IV 01/13/24 09:29 Infused .Q1H1M STA Infusion Sodium Chloride Confirm 01/13/24 08:47 Sodium Chloride 0.9% 1000 Ml Administered 01/13/24 08:48 Dose 1,000 mls @ ud .ROUTE .STK-MED ONE Metoprolol Tartrate 5 mg 01/13/24 08:30 01/13/24 08:52 Metoprolol Tartrate 5 Mg/5 Ml Vial IV 01/13/24 08:31 5 mg STAT ONE Administration Metoprolol Tartrate Confirm 01/13/24 08:52 Metoprolol Tartrate 5 Mg/5 Ml Vial Administered 01/13/24 08:53 Dose 5 mg IV .STK-MED ONE Morphine Sulfate 2 mg 01/13/24 09:43 01/13/24 09:50 Morphine Sulfate 2 Mg/Ml Inj IV 01/13/24 09:44 2 mg STAT ONE Administration Morphine Sulfate Confirm 01/13/24 09:49 Morphine Sulfate 2 Mg/Ml Inj Administered 01/13/24 09:50 Dose 2 mg .ROUTE .STK-MED ONE Ondansetron HCl 4 mg 01/13/24 09:43 01/13/24 09:50 Ondansetron Hcl 4 Mg/2 Ml Vial IV 01/13/24 09:44 4 mg STAT ONE Administration Ondansetron HCl Confirm 01/13/24 09:49 Ondansetron Hcl 4 Mg/2 Ml Vial Administered 01/13/24 09:50 Dose 4 mg .ROUTE .STK-MED ONE Lab/Rad Data: Laboratory Result Diagrams 01/13/24 08:09 01/13/24 08:09 Laboratory Results 01/13/24 01/13/24 01/13/24 Range/Units 09:43 08:33 08:09 WBC (4.0-10.5) x10^3/uL RBC (4.1-5.4) x10^6/uL Hgb (12.0-16.0) g/dL Hct (35-47) % MCV (78-100) fL MCH (26-32) pg MCHC (32-36) g/dL RDW (11.5-14.0) % Plt Count (150-450) x10^3/uL MPV (7.5-11.0) fL Gran % (36.0-66.0) % Immature Gran % (Auto) (0.00-0.4) % Nucleat RBC Rel Count (0.00-0.1) % Eos # (Auto) (0-0.5) x10^3/uL Immature Gran # (Auto) (0.00-0.03) x10^3u/L Absolute Lymphs (auto) (1.0-4.6) x10^3/uL Absolute Monos (auto) (0.0-1.3) x10^3/uL Absolute Nucleated RBC (0.00-0.01) x10^3u/L Lymphocytes % (24.0-44.0) % Monocytes % (0.0-12.0) % Eosinophils % (0.00-5.0) % Basophils % (0.0-0.4) % Absolute Granulocytes (1.4-6.9) x10^3/uL Basophils # (0-0.4) x10^3/uL PT (9.4-12.5) SECONDS INR (0.8-3.0) D-Dimer (0.0-0.50) mg/L Sodium (135-145) mmol/L Potassium (3.5-5.1) mmol/L Chloride (98-107) mmol/L Carbon Dioxide (22-30) mmol/L Anion Gap (5-15) MEQ/L BUN (7-17) mg/dL Creatinine (0.52-1.04) mg/dL Estimated GFR ML/MIN Glucose (74-106) mg/dL Calcium (8.4-10.2) mg/dL Magnesium (1.6-2.3) mg/dL Total Bilirubin (0.2-1.3) mg/dL AST (14-36) U/L ALT (0-35) U/L Alkaline Phosphatase (38-126) U/L Troponin I (0.000-0.033) ng/mL Serum Total Protein (6.3-8.2) g/dL Albumin (3.5-5.0) g/dL Amylase (30-110) U/L Lipase (23-300) U/L Free T4 0.99 (0.78-2.19) ng/dL TSH 3rd Generation (0.470-4.680) mIU/L Urine Color Yellow (Yellow) Urine Appearance Clear (Clear) Urine pH 5.5 (4.6-8.0) Ur Specific [place] <=1.005 (1.005-1.030) Urine Protein Negative (Negative) Urine Glucose (UA) Negative (Negative) mg/dL Urine Ketones Negative (Negative) Urine Blood Negative (Negative) Urine Nitrite Negative (Negative) Urine Bilirubin Negative (Negative) Urine Urobilinogen 0.2 (0.2) mg/dL Ur Leukocyte Esterase Negative (Negative) U Hyaline Cast (Auto) NONE SEEN (0-2) /LPF Urine Microscopic RBC 0-2 (0-5) /HPF Urine Microscopic WBC 0-2 (0-5) /HPF Ur Epithelial Cells Rare (None Seen) /HPF Urine Bacteria None Seen (None Seen) /HPF Urine Culture Reflexed NO (NO) Urine Opiates Level NEGATIVE (NEGATIVE) Ur Methadone NEGATIVE (NEGATIVE) Urine Barbiturates NEGATIVE (NEGATIVE) Ur Phencyclidine (PCP) NEGATIVE (NEGATIVE) Urine Amphetamine NEGATIVE (NEGATIVE) U Benzodiazepine Level NEGATIVE (NEGATIVE) Urine Cocaine NEGATIVE (NEGATIVE) Urine Marijuana (THC) NEGATIVE (NEGATIVE) 01/13/24 01/13/24 01/13/24 Range/Units 08:09 08:09 08:09 WBC (4.0-10.5) x10^3/uL RBC (4.1-5.4) x10^6/uL Hgb (12.0-16.0) g/dL Hct (35-47) % MCV (78-100) fL MCH (26-32) pg MCHC (32-36) g/dL RDW (11.5-14.0) % Plt Count (150-450) x10^3/uL MPV (7.5-11.0) fL Gran % (36.0-66.0) % Immature Gran % (Auto) (0.00-0.4) % Nucleat RBC Rel Count (0.00-0.1) % Eos # (Auto) (0-0.5) x10^3/uL Immature Gran # (Auto) (0.00-0.03) x10^3u/L Absolute Lymphs (auto) (1.0-4.6) x10^3/uL Absolute Monos (auto) (0.0-1.3) x10^3/uL Absolute Nucleated RBC (0.00-0.01) x10^3u/L Lymphocytes % (24.0-44.0) % Monocytes % (0.0-12.0) % Eosinophils % (0.00-5.0) % Basophils % (0.0-0.4) % Absolute Granulocytes (1.4-6.9) x10^3/uL Basophils # (0-0.4) x10^3/uL PT 10.3 (9.4-12.5) SECONDS INR 0.94 (0.8-3.0) D-Dimer 0.55 H (0.0-0.50) mg/L Sodium (135-145) mmol/L Potassium (3.5-5.1) mmol/L Chloride (98-107) mmol/L Carbon Dioxide (22-30) mmol/L Anion Gap (5-15) MEQ/L BUN (7-17) mg/dL Creatinine (0.52-1.04) mg/dL Estimated GFR ML/MIN Glucose (74-106) mg/dL Calcium (8.4-10.2) mg/dL Magnesium 1.7 (1.6-2.3) mg/dL Total Bilirubin (0.2-1.3) mg/dL AST (14-36) U/L ALT (0-35) U/L Alkaline Phosphatase (38-126) U/L Troponin I < 0.012 (0.000-0.033) ng/mL Serum Total Protein (6.3-8.2) g/dL Albumin (3.5-5.0) g/dL Amylase (30-110) U/L Lipase (23-300) U/L Free T4 (0.78-2.19) ng/dL TSH 3rd Generation 1.100 (0.470-4.680) mIU/L Urine Color (Yellow) Urine Appearance (Clear) Urine pH (4.6-8.0) Ur Specific [place] (1.005-1.030) Urine Protein (Negative) Urine Glucose (UA) (Negative) mg/dL Urine Ketones (Negative) Urine Blood (Negative) Urine Nitrite (Negative) Urine Bilirubin (Negative) Urine Urobilinogen (0.2) mg/dL Ur Leukocyte Esterase (Negative) U Hyaline Cast (Auto) (0-2) /LPF Urine Microscopic RBC (0-5) /HPF Urine Microscopic WBC (0-5) /HPF Ur Epithelial Cells (None Seen) /HPF Urine Bacteria (None Seen) /HPF Urine Culture Reflexed (NO) Urine Opiates Level (NEGATIVE) Ur Methadone (NEGATIVE) Urine Barbiturates (NEGATIVE) Ur Phencyclidine (PCP) (NEGATIVE) Urine Amphetamine (NEGATIVE) U Benzodiazepine Level (NEGATIVE) Urine Cocaine (NEGATIVE) Urine Marijuana (THC) (NEGATIVE) 01/13/24 01/13/24 Range/Units 08:09 08:09 WBC 12.0 H (4.0-10.5) x10^3/uL RBC 4.55 (4.1-5.4) x10^6/uL Hgb 13.7 (12.0-16.0) g/dL Hct 41.0 (35-47) % MCV 90.1 (78-100) fL MCH 30.1 (26-32) pg MCHC 33.4 (32-36) g/dL RDW 14.6 H (11.5-14.0) % Plt Count 375 (150-450) x10^3/uL MPV 9.6 (7.5-11.0) fL Gran % 64.6 (36.0-66.0) % Immature Gran % (Auto) 0.4 (0.00-0.4) % Nucleat RBC Rel Count 0.0 (0.00-0.1) % Eos # (Auto) 0.33 (0-0.5) x10^3/uL Immature Gran # (Auto) 0.05 H (0.00-0.03) x10^3u/L Absolute Lymphs (auto) 2.95 (1.0-4.6) x10^3/uL Absolute Monos (auto) 0.82 (0.0-1.3) x10^3/uL Absolute Nucleated RBC 0.00 (0.00-0.01) x10^3u/L Lymphocytes % 24.6 (24.0-44.0) % Monocytes % 6.8 (0.0-12.0) % Eosinophils % 2.8 (0.00-5.0) % Basophils % 0.8 (0.0-0.4) % Absolute Granulocytes 7.75 H (1.4-6.9) x10^3/uL Basophils # 0.09 (0-0.4) x10^3/uL PT (9.4-12.5) SECONDS INR (0.8-3.0) D-Dimer (0.0-0.50) mg/L Sodium 136 (135-145) mmol/L Potassium 3.7 (3.5-5.1) mmol/L Chloride 107 (98-107) mmol/L Carbon Dioxide 17 L (22-30) mmol/L Anion Gap 14.9 (5-15) MEQ/L BUN 5 L (7-17) mg/dL Creatinine 0.53 (0.52-1.04) mg/dL Estimated GFR 124.4 ML/MIN Glucose 129 H (74-106) mg/dL Calcium 9.1 (8.4-10.2) mg/dL Magnesium (1.6-2.3) mg/dL Total Bilirubin 0.40 (0.2-1.3) mg/dL AST 225 H (14-36) U/L ALT 65 H (0-35) U/L Alkaline Phosphatase 154 H (38-126) U/L Troponin I (0.000-0.033) ng/mL Serum Total Protein 7.2 (6.3-8.2) g/dL Albumin 3.8 (3.5-5.0) g/dL Amylase 105 (30-110) U/L Lipase 441 H (23-300) U/L Free T4 (0.78-2.19) ng/dL TSH 3rd Generation (0.470-4.680) mIU/L Urine Color (Yellow) Urine Appearance (Clear) Urine pH (4.6-8.0) Ur Specific [place] (1.005-1.030) Urine Protein (Negative) Urine Glucose (UA) (Negative) mg/dL Urine Ketones (Negative) Urine Blood (Negative) Urine Nitrite (Negative) Urine Bilirubin (Negative) Urine Urobilinogen (0.2) mg/dL Ur Leukocyte Esterase (Negative) U Hyaline Cast (Auto) (0-2) /LPF Urine Microscopic RBC (0-5) /HPF Urine Microscopic WBC (0-5) /HPF Ur Epithelial Cells (None Seen) /HPF Urine Bacteria (None Seen) /HPF Urine Culture Reflexed (NO) Urine Opiates Level (NEGATIVE) Ur Methadone (NEGATIVE) Urine Barbiturates (NEGATIVE) Ur Phencyclidine (PCP) (NEGATIVE) Urine Amphetamine (NEGATIVE) U Benzodiazepine Level (NEGATIVE) Urine Cocaine (NEGATIVE) Urine Marijuana (THC) (NEGATIVE) - Progress Progress: improved Air Movement: good Progress Note: 01/13/24 08:27 My medical decision making and the assignment of moderate complexity to this patient's medical issue today is based on review the patient's past medical history, review the patient's medication list, review the patient drug allergy list, history of present illness and physical findings on examination. The workup in this patient includes placement of intravenous line, normal saline intravenous infusion, CBC, CMP, twelve-lead EKG, troponin, D-dimer level, urinalysis, urine drug triage, amylase and lipase levels and magnesium level. 01/13/24 08:40 Differential diagnosis includes myocardial infarction, chest wall pain, anxiety, pulmonary embolus, malingering, electrolyte abnormalities, narcotic drug withdrawal. 01/13/24 10:21 The patient is leaving AGAINST MEDICAL ADVICE. She repeated to the nurse and to me that she is leaving unless we "fucking knock me out". She states that she feels as though someone is sitting on her chest. Additionally, she stated that she was not in pain. I did explain to her that her vital signs have improved, she is oxygenating well, her heart enzyme is normal, and her heart rate is now in the normal range. We are waiting for the CT scan of the chest with contrast. She wants everything off of her and told someone who was on the phone with her face timing, to come get her and "take me to [facility]". 01/13/24 10:24 I interpreted the lab test that have returned and she had a slightly elevated D- dimer and I ordered a CT scan of the chest with contrast to evaluate for pulmonary embolus or other acute intrathoracic abnormalities. 04/15/24 10:25 Blood Culture(s) Obtained: No Antibiotics given: No Counseled pt/family regarding: lab results, diagnosis, need for follow-up Medical Desision Making - Diagnostic Testing Diagnostic test were ordered, analyzed, and reviewed by me: Yes - Departure Departure Disposition: AMA Clinical Impression: Anxiety about health Condition: Stable Critical Care Time: No Referrals: KIRSTIN VO [Primary Care Provider] - Follow up/PCP as directed
[2024-01-13 08:17] VITALS: TEMP 97.5
[2024-01-13] MEDS: BABY ASPIRIN 81 MG CHEW PO ONE (08:19)
[2024-01-13 08:28] LABS: Absolute Neutrophil Ct (ANC) 7.75 x10^3/uL (1.4-6.9); BASOPHIL % 0.8 % (0.0-0.4); Basophil (Absolute #) 0.09 x10^3/uL (0-0.4); Eosinophil % 2.8 % (0.00-5.0); Eosinophil (Absolute #) 0.33 x10^3/uL (0-0.5); Hemoglobin 13.7 g/dL (12.0-16.0); IMMATURE GRAN # 0.05 x10^3u/L (0.00-0.03); IMMATURE GRAN % 0.4 % (0.00-0.4); Lymphocyte (Absolute #) 2.95 x10^3/uL (1.0-4.6); Lymphocytes % 24.6 % (24.0-44.0); Mean Cell Volume 90.1 fL (78-100); Mean Corpuscular Hemoglobin 30.1 pg (26-32); Mean Corpuscular Hgb Concent. 33.4 g/dL (32-36); Mean Platelet Volume 9.6 fL (7.5-11.0); Monocyte (Absolute #) 0.82 x10^3/uL (0.0-1.3); Monocytes % 6.8 % (0.0-12.0); Neutrophil % 64.6 % (36.0-66.0); Platelet Count 375 x10^3/uL (150-450); Red Blood Count 4.55 x10^6/uL (4.1-5.4); Red Cell Distribution Width 14.6 % (11.5-14.0)
[2024-01-13 08:30] LABS: ALBUMIN 3.8 g/dL (3.5-5.0); ANION GAP 14.9 MEQ/L (5-15); BILIRUBIN,TOTAL 0.4 mg/dL (0.2-1.3); Calcium 9.1 mg/dL (8.4-10.2); Creatinine 1 0.53 mg/dL (0.52-1.04); EST GLOMERULAR FILTRATION RATE 124.4 ML/MIN; Potassium 3.7 mmol/L (3.5-5.1); Total Protein 7.2 g/dL (6.3-8.2)
[2024-01-13 08:37] LABS: D-DIMER QUANTITATIVE 0.55 mg/L (0.0-0.50); INR 0.94 (0.8-3.0); PROTIME 10.3 SECONDS (9.4-12.5)
[2024-01-13] MEDS ORDERED: Sodium Chloride 0.9% 1000 ML 1,000 ML ONE (08:47)
[2024-01-13] MEDS ORDERED: BABY ASPIRIN 81 MG CHEW ONE (08:47)
[2024-01-13] MEDS: Sodium Chloride 0.9% 1000 ML 1,000 ML IV STA (08:48)
[2024-01-13 08:50] VITALS: O2SAT 98
[2024-01-13] MEDS: LOPRESSOR INJECTION IV ONE (08:52)
[2024-01-13] MEDS ORDERED: LOPRESSOR INJECTION IV ONE (08:52)
[2024-01-13 08:53] LABS: Amphetamine,Urine NEGATIVE (NEGATIVE); Barbiturate,Urine NEGATIVE (NEGATIVE); Benzodiazepine,Urine NEGATIVE (NEGATIVE); Cocaine,Urine NEGATIVE (NEGATIVE); Methadone,Urine NEGATIVE (NEGATIVE); Opiate,Urine NEGATIVE (NEGATIVE); PCP,Urine NEGATIVE (NEGATIVE); THC,Urine NEGATIVE (NEGATIVE)
[2024-01-13 09:25] LABS: MAGNESIUM 1.7 mg/dL (1.6-2.3)
[2024-01-13] MEDS ORDERED: MORPHINE SULFATE 2 MG INJ ONE (09:49)
[2024-01-13] MEDS ORDERED: Zofran 4 MG/2 ML VIAL ONE (09:49)
[2024-01-13] MEDS: MORPHINE SULFATE 2 MG INJ IV ONE (09:50)
[2024-01-13] MEDS: Zofran 4 MG/2 ML VIAL IV ONE (09:50)
[2024-01-13 09:53] VITALS: BP 149/105; PULSE 94; RESP 15
[2024-01-13 09:55] LABS: TSH, 3RD Generation 1.1 mIU/L (0.470-4.680)
[2024-01-13 10:07] LABS: Appearance Clear (Clear); Bacteria None Seen /HPF (None Seen); Bilirubin Negative (Negative); Blood Negative (Negative); Epithelial Cells Rare /HPF (None Seen); Glucose, Urine Negative (Negative); Hyaline Casts NONE SEEN /LPF (0-2); Ketones Negative (Negative); Leukocyte Esterase Negative (Negative); Nitrite Negative (Negative); Ph 5.5 (4.6-8.0); Protein,Urine Dip Negative (Negative); RBC 0-2 /HPF (0-5); Specific Gravity <=1.005 (1.005-1.030); Urobilinogen 0.2 mg/dL (0.2); WBC 0-2 /HPF (0-5)
[2024-01-13 10:08] LABS: ADD URINE CULTURE? NO (NO)
--- NOTE | 2024-01-13 10:24 | XRAY ---
Indication: Chest pain and tachycardia. Elevated d-dimer. Recent esophageal perforation with pneumomediastinum. Multiple contiguous axial images obtained through the chest using 80 cc Isovue 370 contrast and PE protocol. Comparison: December 20, 2023 Good opacification of the pulmonary arteries to include the lobar and segmental branches. No pulmonary embolus. Heart not enlarged. No pneumomediastinum. Aorta is normal in course and caliber. No pathologic mediastinal/hilar lymphadenopathy. Lungs inflated and clear. Bony thorax intact again with old right 2 rib fracture. Limited upper abdomen again demonstrates fatty liver. Interval cholecystectomy. Impression: 1. Status post cholecystectomy without complications. Again fatty liver. 2. Remaining CT chest pulmonary embolus exam is normal.
== END 2024-01-13 10:29 | disposition left against medical advice (07) ==
LOC: ED 07:55
DX: F45.9 Somatoform disorder, unspecified (principal); R07.9 Chest pain, unspecified; Z79.899 Other long term (current) drug therapy; Z72.0 Tobacco use
CPT/HCPCS: 36000; 36415; 71260; 80053; 80307; 81001; 82150; 83690; 83735; 84439; 84443; 84484; 85025; 85379; 85610; 93005; 93041; 94760; 96360; 96374; 96375; 99284; J2270; J2405; A9270-GY

== ENCOUNTER 2024-01-16 23:53 | Emergency (ER) | payer BC | END 2024-01-17 00:42 | disposition left against medical advice (07) | LOC: ED 23:53 | DX: Z53.8 Procedure and treatment not carried out for other reasons (principal) ==

== ENCOUNTER 2024-05-16 22:51 | Emergency (ER) | payer BC, OTHER ==
[2024-05-16 23:11] VITALS: PULSE 140; RESP 16; TEMP 97.6
[2024-05-16 23:19] LABS: Absolute Neutrophil Ct (ANC) 2.28 x10^3/uL (1.56-6.13); BASOPHIL % 1.5 % (0.1-1.2); Basophil (Absolute #) 0.08 x10^3/uL (0.01-0.08); Eosinophil % 5.4 % (0.7-5.8); Eosinophil (Absolute #) 0.29 x10^3/uL (0.04-0.36); Hemoglobin 15.2 g/dL (11.2-15.7); IMMATURE GRAN # 0.01 x10^3u/L (0.001-0.031); IMMATURE GRAN % 0.2 % (0.001-0.429); Lymphocyte (Absolute #) 2.09 x10^3/uL (1.18-3.74); Lymphocytes % 38.7 % (19.3-51.7); Mean Cell Volume 92.4 fL (79.4-94.8); Mean Corpuscular Hemoglobin 31.9 pg (25.6-32.2); Mean Corpuscular Hgb Concent. 34.5 g/dL (32.2-35.5); Mean Platelet Volume 10.1 fL (9.4-12.3); Monocyte (Absolute #) 0.65 x10^3/uL (0.24-0.86); Neutrophil % 42.2 % (34.0-71.1); Platelet Count 300 x10^3/uL (182-369); Red Blood Count 4.76 x10^6/uL (3.93-5.22); Red Cell Distribution Width 13.7 % (11.7-14.4); White Blood Count 5.4 x10^3/uL (3.98-10.04)
[2024-05-16 23:24] LABS: HCG SERUM TEST NEGATIVE (NEGATIVE)
[2024-05-16 23:25] LABS: ALBUMIN 4.4 g/dL (3.5-5.0); ANION GAP 17.3 MEQ/L (5-15); BILIRUBIN,TOTAL 1.3 mg/dL (0.2-1.3); Calcium 8.9 mg/dL (8.4-10.2); Creatinine 1 0.53 mg/dL (0.52-1.04); EST GLOMERULAR FILTRATION RATE 124.4 ML/MIN; Potassium 3.4 mmol/L (3.5-5.1); Total Protein 8.1 g/dL (6.3-8.2)
[2024-05-16] MEDS ORDERED: PROTONIX 40 MG IV IV ONE (23:27)
[2024-05-16] MEDS ORDERED: MORPHINE SULFATE 4 MG INJ ONE (23:27)
[2024-05-16] MEDS ORDERED: Zofran 4 MG/2 ML VIAL ONE (23:27)
[2024-05-16 23:28] LABS: Appearance Clear (Clear); Bacteria None Seen /HPF (None Seen); Bilirubin Negative (Negative); Blood Negative (Negative); Epithelial Cells None Seen /HPF (None Seen); Glucose, Urine Negative (Negative); Hyaline Casts NONE SEEN /LPF (0-2); Ketones Negative (Negative); Leukocyte Esterase Small (Negative); Nitrite Negative (Negative); Protein,Urine Dip Negative (Negative); RBC 0-2 /HPF (0-5); Specific Gravity <=1.005 (1.005-1.030); Urobilinogen 0.2 mg/dL (0.2)
[2024-05-16] MEDS ORDERED: Sodium Chloride 0.9% 1000 ML 1,000 ML ONE (23:28)
[2024-05-16] MEDS: Sodium Chloride 0.9% 1000 ML 1,000 ML IV STA (23:34)
[2024-05-16 23:35] LABS: ADD URINE CULTURE? NO (NO)
[2024-05-16] MEDS: MORPHINE SULFATE 4 MG INJ IV ONE (23:35)
[2024-05-16] MEDS: Zofran 4 MG/2 ML VIAL IV ONE (23:35)
[2024-05-16] MEDS: PROTONIX 40 MG IV IV ONE (23:36)
[2024-05-17 00:20] VITALS: O2SAT 96
--- NOTE | 2024-05-17 00:40 | XRAY ---
CLINICAL HISTORY: Upper abdominal pain/pancreatitis? COMPARISON: None. TECHNIQUE: CT scan of the abdomen and pelvis was performed without IV contrast administration. Coronal and sagittal reconstructive images were also obtained. One of the following dose reduction techniques were utilized for this exam: Automated exposure control, adjustment of the mA and/or kV according to patient size, use of iterative reconstruction. FINDINGS: Enlarged liver showing diffuse reduction of its parenchymal attenuation denoting fatty infiltration. No dilated intra or extra-hepatic biliary tracts. Cholecystectomy clips. Clear surrounding fat planes. The unenhanced pancreas appears unremarkable. Clear surrounding fat planes. The unenhanced spleen, adrenal glands and IVC are unremarkable. Both kidneys are of average size and shape with homogenous parenchymal enhancement. No calculi. No hydronephrosis. Regular distension of the urinary bladder showing no obvious masses or calculi. Average-sized anteverted uterus. No obvious uterine or adnexal masses. Fine aortic calcified plaques. Normal CT appearance of the appendix with clear surrounding fat planes. The ascending colon, the transverse colon, the descending colon as well as the small bowel loops are unremarkable. The stomach is not distended. No obvious gastric masses or abnormal dilatation. No pathologically enlarged abdominal or pelvic lymph nodes. No ascites or pelvic collections. No free intra-abdominal air. Scanned osseous structures show No osseous destruction. Scanned lung bases show no obvious abnormalities. IMPRESSION: 1. No acute pelvi-abdominal abnormalities, collections or free air. 2. Fatty hepatomegaly. Electronically Signed by: Sherrie Joy MD. (05/17/2024 00:35:40 EDT)
--- NOTE | 2024-05-17 01:02 | ERPHSYRPT ---
- History of Present Illness Time Seen by Provider: 05/16/24 23:04 Historian: patient Exam Limitations: no limitations Patient Subjective Stated Complaint: pt reports abdominal pain starting 05/14, states the pain is in her upper abdomnen on both sides and radiates to her back. report history of pancreatitis and alcohol use. states she typically drinks one pint to one and a half pints of aplpe radha beam per day. Triage Nursing Assessment: pt appears anxious upon arrival, afebrile, resps easy and non labored, pupils perrl, radial pulses strong and equal, cap refill < 3 seconds, pt abd tender diffusely to the bilat upper quadrants, soft, pt skin pink warm dry. Physician History: 33-year-old female with history of alcohol abuse, pancreatitis, GERD presented in the ER with complains of upper abdominal pain with nausea and vomiting. Patient reports she has been drinking a pint and a half for quite some time, last drink was few hours ago. Reports upper abdominal pain with nausea and nonprojectile, nonbilious vomiting without hematemesis.. Patient reports radiation of pain to the back. Denies fever or chills. No constipation or diarrhea. Patient reports having similar symptoms with the previous having pa ncreatitis. Allergies/Adverse Reactions: No Known Drug Allergies Allergy (Verified 05/16/24 23:11) Hx Tetanus, Diphtheria Vaccination/Date Given: Yes Hx Influenza Vaccination/Date Given: No Hx Pneumococcal Vaccination/Date Given: No Immunizations Up to Date: Yes Travel Risk - International Travel Have you traveled outside of the country in past 3 weeks: No - Emerging Infectious Disease Are you exhibiting symptoms associated with any current EIDs: Yes Symptoms: Abdominal Pain - Review of Systems Constitutional: No Symptoms Eyes: No Symptoms Ears, Nose, & Throat: No Symptoms Respiratory: No Symptoms Cardiac: No Symptoms Abdominal/Gastrointestinal: Abdominal Pain, Nausea, Vomiting Genitourinary Symptoms: No Symptoms Musculoskeletal: No Symptoms Skin: No Symptoms Neurological: No Symptoms Endocrine: No Symptoms Hematologic/Lymphatic: No Symptoms Immunological/Allergic: No Symptoms - Past Medical History Pertinent Past Medical History: Yes Neurological History: Migraines ENT History: No Pertinent History Cardiac History: No Pertinent History Respiratory History: No Pertinent History Endocrine Medical History: No Pertinent History Musculoskeletal History: No Pertinent History GI Medical History: No Pertinent History, Gallbladder Disease, Pancreatitis History: No Pertinent History Psycho-Social History: Anxiety, Bipolar, Depression, Other Female Reproductive Disorders: No Pertinent History Other Medical History: multiple personality disorder - Past Surgical History Past Surgical History: No Neuro Surgical History: No Pertinent History Cardiac: No Pertinent History Respiratory: No Pertinent History Gastrointestinal: Cholecystectomy Genitourinary: No Pertinent History Musculoskeletal: No Pertinent History Female Surgical History: No Pertinent History Significant Family History: no pertinent family hx - Female History Hx Last Menstrual Period: 05/07/24 Hx Now: (Unknown) - Social History Smoking Status: Current every day smoker How long have you smoked: years Exposure to second hand smoke: No Drug Use: none Patient Lives Alone: No - Social Determinants of Health Will the patient participate in the screening: Yes Do you worry about a steady place to live?: No Do you have any problems with any of the following?: No known problems In the past 12 months,have you had to go without utilities?: No Transportation Issues: No Has anyone in your support network made you feel unsafe?: No Have you or anyone in your house had to go without enough: No - Nursing Vital Signs Nursing Vital Signs: Initial Vital Signs Temperature 97.6 F 05/16/24 22:52 Pulse Rate 140 H 05/16/24 22:52 Respiratory Rate 16 05/16/24 22:52 Blood Pressure 123/96 05/16/24 22:52 O2 Sat by Pulse Oximetry 97 05/16/24 22:52 Pain Scale Pain Intensity 10 - Physical Exam General Appearance: no apparent distress, alert Ears, Nose, Throat Exam: normal ENT inspection Neck Exam: normal inspection, full range of motion Respiratory Exam: normal breath sounds, lungs clear Cardiovascular Exam: normal heart sounds, tachycardia Gastrointestinal/Abdomen Exam: soft, normal bowel sounds, tenderness (Upper abdomen with some guarding but no rebound tenderness.) Extremity Exam: normal inspection, normal range of motion Neurologic Exam: alert, oriented x 3, cooperative Skin Exam: normal color SpO2 Interpretation: normal SpO2: 96 O2 Delivery: Room Air Ordered Tests: Active Orders 24 hr Category Date Time Status IV Insertion STAT Care 05/16/24 23:10 Active NPO (ED) STAT Care 05/16/24 23:10 Active ABDOMEN AND PELVIS W/0 CONTRAS [CT] Stat Exams 05/16/24 23:11 Completed AMYLASE Stat Lab 05/16/24 23:17 Completed Alcohol [ETHYL ALCOHOL] Stat Lab 05/17/24 00:46 Completed CBC W DIFF Stat Lab 05/16/24 23:17 Completed CMP Stat Lab 05/16/24 23:17 Completed HCG QUALITATIVE, SERUM Stat Lab 05/16/24 23:17 Completed LIPASE Stat Lab 05/16/24 23:17 Completed UA W/RFX UR CULTURE Stat Lab 05/16/24 23:13 Completed Medication Summary Discontinued Medications Generic Name Dose Route Start Last Admin Trade Name Lu PRN Reason Stop Dose Admin Sodium Chloride 1,000 mls @ 999 mls/hr 05/16/24 23:12 05/16/24 23:34 Sodium Chloride 0.9% 1000 Ml IV 05/17/24 00:12 999 mls/hr .Q1H1M STA Administration Sodium Chloride Confirm 05/16/24 23:28 Sodium Chloride 0.9% 1000 Ml Administered 05/16/24 23:29 Dose 1,000 mls @ ud .ROUTE .STK-MED ONE Morphine Sulfate 4 mg 05/16/24 23:10 05/16/24 23:35 Morphine Sulfate 4 Mg/Ml Injection IV 05/16/24 23:11 4 mg STAT ONE Administration Morphine Sulfate Confirm 05/16/24 23:27 Morphine Sulfate 4 Mg/Ml Injection Administered 05/16/24 23:28 Dose 4 mg .ROUTE .STK-MED ONE Ondansetron HCl 4 mg 05/16/24 23:10 05/16/24 23:35 Ondansetron Hcl 4 Mg/2 Ml Vial IV 05/16/24 23:11 4 mg STAT ONE Administration Ondansetron HCl Confirm 05/16/24 23:27 Ondansetron Hcl 4 Mg/2 Ml Vial Administered 05/16/24 23:28 Dose 4 mg .ROUTE .STK-MED ONE Pantoprazole Sodium 40 mg 05/16/24 23:10 05/16/24 23:36 Pantoprazole 40 Mg Vial IV 05/16/24 23:11 40 mg STAT ONE Administration Pantoprazole Sodium Confirm 05/16/24 23:27 Pantoprazole 40 Mg Vial Administered 05/16/24 23:28 Dose 40 mg IV .STK-MED ONE Lab/Rad Data: Laboratory Result Diagrams 05/16/24 23:17 05/16/24 23:17 Laboratory Results 05/17/24 05/16/24 05/16/24 Range/Units 00:46 23:17 23:17 WBC (3.98-10.04) x10^3/uL RBC (3.93-5.22) x10^6/uL Hgb (11.2-15.7) g/dL Hct (34.1-44.9) % MCV (79.4-94.8) fL MCH (25.6-32.2) pg MCHC (32.2-35.5) g/dL RDW (11.7-14.4) % Plt Count (182-369) x10^3/uL MPV (9.4-12.3) fL Gran % (34.0-71.1) % Immature Gran % (Auto) (0.001-0.429) % Nucleat RBC Rel Count (0.00-0.2) % Eos # (Auto) (0.04-0.36) x10^3/uL Immature Gran # (Auto) (0.001-0.031) x10^3u/L Absolute Lymphs (auto) (1.18-3.74) x10^3/uL Absolute Monos (auto) (0.24-0.86) x10^3/uL Absolute Nucleated RBC (0.00-0.012) x10^3u/L Lymphocytes % (19.3-51.7) % Monocytes % (4.7-12.5) % Eosinophils % (0.7-5.8) % Basophils % (0.1-1.2) % Absolute Granulocytes (1.56-6.13) x10^3/uL Basophils # (0.01-0.08) x10^3/uL Sodium 141 (135-145) mmol/L Potassium 3.4 L (3.5-5.1) mmol/L Chloride 103 (98-107) mmol/L Carbon Dioxide 24 (22-30) mmol/L Anion Gap 17.3 H (5-15) MEQ/L BUN 4 L (7-17) mg/dL Creatinine 0.53 (0.52-1.04) mg/dL Estimated GFR 124.4 ML/MIN Glucose 144 H (74-106) mg/dL Calcium 8.9 (8.4-10.2) mg/dL Total Bilirubin 1.30 (0.2-1.3) mg/dL AST 566 H (14-36) U/L ALT 175 H (0-35) U/L Alkaline Phosphatase 184 H (38-126) U/L Serum Total Protein 8.1 (6.3-8.2) g/dL Albumin 4.4 (3.5-5.0) g/dL Amylase 106 (30-110) U/L Lipase 638 H (23-300) U/L Serum HCG, Qual NEGATIVE (NEGATIVE) Urine Color (Yellow) Urine Appearance (Clear) Urine pH (4.6-8.0) Ur Specific [place] (1.005-1.030) Urine Protein (Negative) Urine Glucose (UA) (Negative) mg/dL Urine Ketones (Negative) Urine Blood (Negative) Urine Nitrite (Negative) Urine Bilirubin (Negative) Urine Urobilinogen (0.2) mg/dL Ur Leukocyte Esterase (Negative) U Hyaline Cast (Auto) (0-2) /LPF Urine Microscopic RBC (0-5) /HPF Urine Microscopic WBC (0-5) /HPF Ur Epithelial Cells (None Seen) /HPF Urine Bacteria (None Seen) /HPF Urine Culture Reflexed (NO) Ethyl Alcohol 240 H (0-10) mg/dL 05/16/24 05/16/24 Range/Units 23:17 23:13 WBC 5.4 (3.98-10.04) x10^3/uL RBC 4.76 (3.93-5.22) x10^6/uL Hgb 15.2 (11.2-15.7) g/dL Hct 44.0 (34.1-44.9) % MCV 92.4 (79.4-94.8) fL MCH 31.9 (25.6-32.2) pg MCHC 34.5 (32.2-35.5) g/dL RDW 13.7 (11.7-14.4) % Plt Count 300 (182-369) x10^3/uL MPV 10.1 (9.4-12.3) fL Gran % 42.2 (34.0-71.1) % Immature Gran % (Auto) 0.2 (0.001-0.429) % Nucleat RBC Rel Count 0.0 (0.00-0.2) % Eos # (Auto) 0.29 (0.04-0.36) x10^3/uL Immature Gran # (Auto) 0.01 (0.001-0.031) x10^3u/L Absolute Lymphs (auto) 2.09 (1.18-3.74) x10^3/uL Absolute Monos (auto) 0.65 (0.24-0.86) x10^3/uL Absolute Nucleated RBC 0.00 (0.00-0.012) x10^3u/L Lymphocytes % 38.7 (19.3-51.7) % Monocytes % 12.0 (4.7-12.5) % Eosinophils % 5.4 (0.7-5.8) % Basophils % 1.5 H (0.1-1.2) % Absolute Granulocytes 2.28 (1.56-6.13) x10^3/uL Basophils # 0.08 (0.01-0.08) x10^3/uL Sodium (135-145) mmol/L Potassium (3.5-5.1) mmol/L Chloride (98-107) mmol/L Carbon Dioxide (22-30) mmol/L Anion Gap (5-15) MEQ/L BUN (7-17) mg/dL Creatinine (0.52-1.04) mg/dL Estimated GFR ML/MIN Glucose (74-106) mg/dL Calcium (8.4-10.2) mg/dL Total Bilirubin (0.2-1.3) mg/dL AST (14-36) U/L ALT (0-35) U/L Alkaline Phosphatase (38-126) U/L Serum Total Protein (6.3-8.2) g/dL Albumin (3.5-5.0) g/dL Amylase (30-110) U/L Lipase (23-300) U/L Serum HCG, Qual (NEGATIVE) Urine Color Yellow (Yellow) Urine Appearance Clear (Clear) Urine pH 7.0 (4.6-8.0) Ur Specific [place] <=1.005 (1.005-1.030) Urine Protein Negative (Negative) Urine Glucose (UA) Negative (Negative) mg/dL Urine Ketones Negative (Negative) Urine Blood Negative (Negative) Urine Nitrite Negative (Negative) Urine Bilirubin Negative (Negative) Urine Urobilinogen 0.2 (0.2) mg/dL Ur Leukocyte Esterase Small A (Negative) U Hyaline Cast (Auto) NONE SEEN (0-2) /LPF Urine Microscopic RBC 0-2 (0-5) /HPF Urine Microscopic WBC 6-10 A (0-5) /HPF Ur Epithelial Cells None Seen (None Seen) /HPF Urine Bacteria None Seen (None Seen) /HPF Urine Culture Reflexed NO (NO) Ethyl Alcohol (0-10) mg/dL - Progress Progress: improved Progress Note: 05/17/24 01:01 33-year-old female with history of alcohol abuse is evaluated in the ER for upper abdominal pain with nausea vomiting. Patient is tachycardic on presentation, given fluids and symptomatic treatment along with Protonix, reeva luation she is feeling much improved. Workup showed normal white count, chemistries with some element of dehydration and elevated transaminases with a total bili of 1.3. Patient has a normal amylase and a lipase in 600s. CT abdomen pelvis is negative for acute pancreatitis or any other acute intra- abdominal pelvic findings. I believe patient has a gastritis, will give her Carafate and recommended taking Protonix which she has at home. Also Zofran for symptomatic relief. She is counseled on alcohol drink. Discussed signs symptoms of worsening needing return to ER which she seems understanding. Stable for discharge. Counseled pt/family regarding: drug and/or alcohol abuse, lab results, diagnosis, need for follow-up, rad results Medical Desision Making - Independent Historian Additional History obtained from: Relative/friend - Diagnostic Testing Diagnostic test were ordered, analyzed, and reviewed by me: Yes Radiological Interpretation: Reviewed by me, Teleradiologist Report - Risk of complications The pt has a mod risk of morbidity or mortality based on: Need for prescription drug management - Departure Departure Disposition: Home Clinical Impression: Vomiting with nausea, not intractable, Upper abdominal pain, Elevated liver transaminase level, Elevated lipase, Alcohol abuse Condition: Stable Critical Care Time: No Referrals: DOCTOR,NO FAMILY [Primary Care Provider] - Follow up with PCP 1 day Instructions: Severe Abdominal Pain, Adult (DC) Additional Instructions: Take Zofran as needed. Follow-up with primary care for reevaluation. Take clear liquid for the next 24 to 48 hours. Return to ER for intractable pain/vomiting or if develop fever chills. Cut down on drinking. Prescriptions: Sucralfate 1 gm [Carafate 1 GM] 1 g PO ACHS #20 tablet Ondansetron ODT 4 MG [Zofran Odt 4 mg] 1 ea PO QIDPRN PRN #7 tablet PRN Reason: n/v
[2024-05-17 01:05] VITALS: BP 146/102
== END 2024-05-17 01:38 | disposition home or self-care (01) ==
LOC: ED 22:51
DX: R11.2 Nausea with vomiting, unspecified (principal); R10.10 Upper abdominal pain, unspecified; R74.01 Elevation of levels of liver transaminase levels; R74.8 Abnormal levels of other serum enzymes; F10.10 Alcohol abuse, uncomplicated; Z71.41 Alcohol abuse counseling and surveillance of alcoholic; Y90.8 Blood alcohol level of 240 mg/100 ml or more; Z72.0 Tobacco use
CPT/HCPCS: 36000; 36415; 74176; 80053; 81001; 82077; 82150; 83690; 84703; 85025; 96374; 96375; 99284; J2270; J2405

== ENCOUNTER 2024-05-17 21:37 | Inpatient (IN) | payer BC ==
--- NOTE | 2024-05-17 21:52 | ERPHSYRPT ---
- History of Present Illness Time Seen by Provider: 05/17/24 21:51 Historian: patient Exam Limitations: no limitations Patient Subjective Stated Complaint: pt states she has been having upper abd pain since saturday that radiates to her back, also nausea and vomiting Triage Nursing Assessment: pt alert and oriented, answers questions approp. pt ambualtes into room with steady gait noted. respirations nonlabored, skin warm and dry. abd soft, bowel sounds present x4. Physician History: The patient, with a history of significant alcohol use, presented with severe abdominal pain and persistent vomiting, unable to tolerate even chicken broth. They were seen the previous day and noted to have elevated pancreatic enzymes. The patient reported continued alcohol consumption, with the last drink taken approximately 3-4 hours prior to the current consultation. They described the pain as severe, to the point of feeling like they were dying. The pain was localized to a specific area in the abdomen. The patient denied any known medication allergies. Timing/Duration: day(s) (3) Activities at Onset: rest Quality: sharpness, stabbing Abdominal Pain Onset Location: epigastric Pain Radiation: no radiation Severity of Pain-Max: severe Severity of Pain-Current: severe Modifying Factors: Improves With: nothing. Worsens With: movement, palpation Associated Symptoms: loss of appetite, nausea, vomiting, No chest pain, No diarrhea, No fever/chills, No heartburn, No rash, No shortness of breath Previous symptoms: same symptoms as today Allergies/Adverse Reactions: No Known Drug Allergies Allergy (Verified 05/17/24 21:39) Hx Tetanus, Diphtheria Vaccination/Date Given: Yes Hx Influenza Vaccination/Date Given: No Hx Pneumococcal Vaccination/Date Given: No Immunizations Up to Date: Yes Travel Risk - International Travel Have you traveled outside of the country in past 3 weeks: No - Emerging Infectious Disease Are you exhibiting symptoms associated with any current EIDs: No Symptoms: Abdominal Pain - Review of Systems All Other Systems: Reviewed and Negative - Past Medical History Pertinent Past Medical History: Yes Neurological History: Migraines ENT History: No Pertinent History Cardiac History: No Pertinent History Respiratory History: No Pertinent History Endocrine Medical History: No Pertinent History Musculoskeletal History: No Pertinent History GI Medical History: No Pertinent History, Gallbladder Disease, Pancreatitis History: No Pertinent History Psycho-Social History: Anxiety, Bipolar, Depression, Other Female Reproductive Disorders: No Pertinent History Other Medical History: multiple personality disorder - Past Surgical History Past Surgical History: No Neuro Surgical History: No Pertinent History Cardiac: No Pertinent History Respiratory: No Pertinent History Gastrointestinal: Cholecystectomy Genitourinary: No Pertinent History Musculoskeletal: No Pertinent History Female Surgical History: No Pertinent History Significant Family History: no pertinent family hx - Female History Hx Last Menstrual Period: last week Hx Now: No - Social History Smoking Status: Current some day smoker How long have you smoked: years Exposure to second hand smoke: No Drug Use: none Patient Lives Alone: No - Social Determinants of Health Will the patient participate in the screening: Declined to provide - Nursing Vital Signs Nursing Vital Signs: Initial Vital Signs Temperature 97.5 F 05/17/24 21:39 Pulse Rate 109 H 05/17/24 21:39 Respiratory Rate 18 05/17/24 21:39 Blood Pressure 132/113 05/17/24 21:39 O2 Sat by Pulse Oximetry 98 05/17/24 21:39 Pain Scale Pain Intensity 10 - Physical Exam General Appearance: moderate distress Respiratory Exam: airway intact, No respiratory distress Cardiovascular Exam: tachycardia, capillary refill <2 sec, No edema Gastrointestinal/Abdomen Exam: soft, normal bowel sounds, tenderness (epigastric), guarding, rebound, No distention, No mass Extremity Exam: normal inspection Neurologic Exam: alert, oriented x 3, cooperative Skin Exam: warm, jaundice (abdomen) SpO2 Interpretation: normal SpO2: 98 O2 Delivery: Room Air - Course Nursing assessment & vital signs reviewed: Yes EKG Interpreted by Me: RATE ([id number]), Sinus Tach, NORMAL AXIS, NORMAL INTERVALS, NORMAL QRS, NORMAL ST-T Ordered Tests: Active Orders 24 hr Category Date Time Status IV Insertion STAT Care 05/17/24 21:52 Active NPO (ED) STAT Care 05/17/24 21:52 Active Telemetry q4h Care 05/17/24 23:20 Active CBC W DIFF Stat Lab 05/17/24 22:09 Completed CMP Stat Lab 05/17/24 22:09 Completed Calcium, Ionized Stat Lab 05/17/24 22:00 Completed LIPASE Stat Lab 05/17/24 22:09 Completed Lactic Acid Stat Lab 05/17/24 22:00 Completed MAGNESIUM Stat Lab 05/17/24 22:09 Completed PHOSPHOROUS Stat Lab 05/17/24 22:09 Completed PROTIME WITH INR Stat Lab 05/17/24 22:09 Completed TSH, 3RD Generation Stat Lab 05/17/24 22:09 Completed UA W/RFX UR CULTURE Stat Lab 05/17/24 21:52 Ordered Urine Triage Profile Stat Lab 05/17/24 21:53 Ordered Transfer Order Routine Transfer 05/17/24 Ordered Medication Summary Generic Name Dose Route Start Last Admin Trade Name Frereva PRN Reason Stop Dose Admin Sodium Chloride 1,000 mls @ 999 mls/hr 05/17/24 23:15 Sodium Chloride 0.9% 1000 Ml IV 05/18/24 00:15 .Q1H1M STA Potassium Chloride 20 meq in 100 mls @ 50 mls/hr 05/17/24 23:30 Potassium Chloride 20 Meq In Water 100ml IV 05/18/24 03:29 Q2H DANE Discontinued Medications Generic Name Dose Route Start Last Admin Trade Name Freq PRN Reason Stop Dose Admin Sodium Chloride 1,000 mls @ 999 mls/hr 05/17/24 21:52 05/17/24 22:07 Sodium Chloride 0.9% 1000 Ml IV 05/17/24 22:52 999 mls/hr .Q1H1M STA Administration Sodium Chloride Confirm 05/17/24 22:05 Sodium Chloride 0.9% 1000 Ml Administered 05/17/24 22:06 Dose 1,000 mls @ ud .ROUTE .STK-MED ONE Labetalol HCl 20 mg 05/17/24 23:16 Labetalol Hcl 20 Mg/4 Ml Disp.Syringe IV 05/17/24 23:17 STAT ONE Lorazepam 2 mg 05/17/24 22:27 05/17/24 22:32 Lorazepam 2 Mg/1 Ml 2 Mg Vial IV 05/17/24 22:28 2 mg STAT ONE Administration Lorazepam Confirm 05/17/24 22:30 Lorazepam 2 Mg/1 Ml 2 Mg Vial Administered 05/17/24 22:31 Dose 2 mg .ROUTE .STK-MED ONE Morphine Sulfate 2 mg 05/17/24 21:52 05/17/24 22:09 Morphine Sulfate 2 Mg/Ml Inj IV 05/17/24 21:53 2 mg STAT ONE Administration Morphine Sulfate Confirm 05/17/24 22:04 Morphine Sulfate 2 Mg/Ml Inj Administered 05/17/24 22:05 Dose 2 mg .ROUTE .STK-MED ONE Morphine Sulfate 4 mg 05/17/24 22:21 05/17/24 22:32 Morphine Sulfate 4 Mg/Ml Injection IV 05/17/24 22:22 4 mg STAT ONE Administration Morphine Sulfate Confirm 05/17/24 22:30 Morphine Sulfate 4 Mg/Ml Injection Administered 05/17/24 22:31 Dose 4 mg .ROUTE .STK-MED ONE Ondansetron HCl 4 mg 05/17/24 21:52 05/17/24 22:07 Ondansetron Hcl 4 Mg/2 Ml Vial IV 05/17/24 21:53 4 mg STAT ONE Administration Ondansetron HCl Confirm 05/17/24 22:04 Ondansetron Hcl 4 Mg/2 Ml Vial Administered 05/17/24 22:05 Dose 4 mg .ROUTE .STK-MED ONE Lab/Rad Data: Laboratory Result Diagrams 05/17/24 22:09 05/17/24 22:09 Laboratory Results 05/17/24 05/17/24 05/17/24 Range/Units 22:09 22:09 22:09 WBC (3.98-10.04) x10^3/uL RBC (3.93-5.22) x10^6/uL Hgb (11.2-15.7) g/dL Hct (34.1-44.9) % MCV (79.4-94.8) fL MCH (25.6-32.2) pg MCHC (32.2-35.5) g/dL RDW (11.7-14.4) % Plt Count (182-369) x10^3/uL MPV (9.4-12.3) fL Gran % (34.0-71.1) % Immature Gran % (Auto) (0.001-0.429) % Nucleat RBC Rel Count (0.00-0.2) % Eos # (Auto) (0.04-0.36) x10^3/uL Immature Gran # (Auto) (0.001-0.031) x10^3u/L Absolute Lymphs (auto) (1.18-3.74) x10^3/uL Absolute Monos (auto) (0.24-0.86) x10^3/uL Absolute Nucleated RBC (0.00-0.012) x10^3u/L Lymphocytes % (19.3-51.7) % Monocytes % (4.7-12.5) % Eosinophils % (0.7-5.8) % Basophils % (0.1-1.2) % Absolute Granulocytes (1.56-6.13) x10^3/uL Basophils # (0.01-0.08) x10^3/uL PT (9.4-12.5) SECONDS INR (0.8-3.0) Ionized Calcium (1.12-1.32) mmol/L Sodium (135-145) mmol/L Potassium (3.5-5.1) mmol/L Chloride (98-107) mmol/L Carbon Dioxide (22-30) mmol/L Anion Gap (5-15) MEQ/L BUN (7-17) mg/dL Creatinine (0.52-1.04) mg/dL Estimated GFR ML/MIN Glucose (74-106) mg/dL Hemoglobin A1c 5.21 (4.5-6.0) % Lactic Acid (0.4-2.0) Calcium (8.4-10.2) mg/dL Phosphorus 3.7 (2.5-4.5) mg/dL Magnesium 1.7 (1.6-2.3) mg/dL Total Bilirubin (0.2-1.3) mg/dL AST (14-36) U/L ALT (0-35) U/L Alkaline Phosphatase (38-126) U/L Ammonia 20 (9-30) umol/L Serum Total Protein (6.3-8.2) g/dL Albumin (3.5-5.0) g/dL Lipase (23-300) U/L TSH 3rd Generation 0.640 (0.470-4.680) mIU/L 05/17/24 05/17/24 05/17/24 Range/Units 22:09 22:09 22:09 WBC 7.2 (3.98-10.04) x10^3/uL RBC 4.94 (3.93-5.22) x10^6/uL Hgb 15.6 (11.2-15.7) g/dL Hct 45.7 H (34.1-44.9) % MCV 92.5 (79.4-94.8) fL MCH 31.6 (25.6-32.2) pg MCHC 34.1 (32.2-35.5) g/dL RDW 13.5 (11.7-14.4) % Plt Count 284 (182-369) x10^3/uL MPV 10.2 (9.4-12.3) fL Gran % 72.7 H (34.0-71.1) % Immature Gran % (Auto) 0.3 (0.001-0.429) % Nucleat RBC Rel Count 0.0 (0.00-0.2) % Eos # (Auto) 0.07 (0.04-0.36) x10^3/uL Immature Gran # (Auto) 0.02 (0.001-0.031) x10^3u/L Absolute Lymphs (auto) 1.06 L (1.18-3.74) x10^3/uL Absolute Monos (auto) 0.75 (0.24-0.86) x10^3/uL Absolute Nucleated RBC 0.00 (0.00-0.012) x10^3u/L Lymphocytes % 14.8 L (19.3-51.7) % Monocytes % 10.5 (4.7-12.5) % Eosinophils % 1.0 (0.7-5.8) % Basophils % 0.7 (0.1-1.2) % Absolute Granulocytes 5.20 (1.56-6.13) x10^3/uL Basophils # 0.05 (0.01-0.08) x10^3/uL PT 11.8 (9.4-12.5) SECONDS INR 1.09 (0.8-3.0) Ionized Calcium (1.12-1.32) mmol/L Sodium 138 (135-145) mmol/L Potassium 3.2 L (3.5-5.1) mmol/L Chloride 102 (98-107) mmol/L Carbon Dioxide 21 L (22-30) mmol/L Anion Gap 18.2 H (5-15) MEQ/L BUN 2 L (7-17) mg/dL Creatinine 0.56 (0.52-1.04) mg/dL Estimated GFR 122.7 ML/MIN Glucose 165 H (74-106) mg/dL Hemoglobin A1c (4.5-6.0) % Lactic Acid (0.4-2.0) Calcium 8.8 (8.4-10.2) mg/dL Phosphorus (2.5-4.5) mg/dL Magnesium (1.6-2.3) mg/dL Total Bilirubin 1.40 H (0.2-1.3) mg/dL AST 427 H (14-36) U/L ALT 152 H (0-35) U/L Alkaline Phosphatase 204 H (38-126) U/L Ammonia (9-30) umol/L Serum Total Protein 7.5 (6.3-8.2) g/dL Albumin 4.2 (3.5-5.0) g/dL Lipase 4566 H (23-300) U/L TSH 3rd Generation (0.470-4.680) mIU/L 05/17/24 05/17/24 Range/Units 22:00 22:00 WBC (3.98-10.04) x10^3/uL RBC (3.93-5.22) x10^6/uL Hgb (11.2-15.7) g/dL Hct (34.1-44.9) % MCV (79.4-94.8) fL MCH (25.6-32.2) pg MCHC (32.2-35.5) g/dL RDW (11.7-14.4) % Plt Count (182-369) x10^3/uL MPV (9.4-12.3) fL Gran % (34.0-71.1) % Immature Gran % (Auto) (0.001-0.429) % Nucleat RBC Rel Count (0.00-0.2) % Eos # (Auto) (0.04-0.36) x10^3/uL Immature Gran # (Auto) (0.001-0.031) x10^3u/L Absolute Lymphs (auto) (1.18-3.74) x10^3/uL Absolute Monos (auto) (0.24-0.86) x10^3/uL Absolute Nucleated RBC (0.00-0.012) x10^3u/L Lymphocytes % (19.3-51.7) % Monocytes % (4.7-12.5) % Eosinophils % (0.7-5.8) % Basophils % (0.1-1.2) % Absolute Granulocytes (1.56-6.13) x10^3/uL Basophils # (0.01-0.08) x10^3/uL PT (9.4-12.5) SECONDS INR (0.8-3.0) Ionized Calcium 1.02 L (1.12-1.32) mmol/L Sodium (135-145) mmol/L Potassium (3.5-5.1) mmol/L Chloride (98-107) mmol/L Carbon Dioxide (22-30) mmol/L Anion Gap (5-15) MEQ/L BUN (7-17) mg/dL Creatinine (0.52-1.04) mg/dL Estimated GFR ML/MIN Glucose (74-106) mg/dL Hemoglobin A1c (4.5-6.0) % Lactic Acid 4.1 H (0.4-2.0) Calcium (8.4-10.2) mg/dL Phosphorus (2.5-4.5) mg/dL Magnesium (1.6-2.3) mg/dL Total Bilirubin (0.2-1.3) mg/dL AST (14-36) U/L ALT (0-35) U/L Alkaline Phosphatase (38-126) U/L Ammonia (9-30) umol/L Serum Total Protein (6.3-8.2) g/dL Albumin (3.5-5.0) g/dL Lipase (23-300) U/L TSH 3rd Generation (0.470-4.680) mIU/L - Progress Progress: improved, pain not gone completely Progress Note: Acute Pancreatitis Severe abdominal pain, vomiting, and elevated pancreatic enzymes. Likely secondary to alcohol use. -Likely admit for bowel rest and intravenous hydration. -Repeat labs to monitor pancreatic enzymes. -CT from yesterday showed no acute pathology, no need to repeat today. -Morphine 2mg IV for pain control at this time. Alcohol Use Disorder Heavy alcohol use with last drink 3-4 hours prior to presentation. No signs of withdrawal at this time. -Monitor for signs of alcohol withdrawal during hospitalization. 05/17/24 23:16 Patient has pancreatitis with lipase over 4500 today. Liver enzymes elevated with total bili of 1.4. Hx of cholecystectomy. Will need admission for IVF, bowel rest and pain control. Placed on CIWA protocol due to her hx of EtOH use d/o and hx of withdrawal. Her BP and HR remained elevated after 6mg IV Morphine and 2mg IV Ativan, 20mg IV Labetalol given. Dr. King accepts for admission at 2316. Discussed with : Other (Fernando) Will see patient in: hospital (observation) Counseled pt/family regarding: lab results, diagnosis, need for follow-up, rad results Medical Desision Making - Diagnostic Testing Diagnostic test were ordered, analyzed, and reviewed by me: Yes Radiological Interpretation: Interpreted by me, Reviewed by me, Teleradiologist Report - Risk of complications The pt has a mod risk of morbidity or mortality based on: Need for prescription drug management The pt has a high risk of morbidity or mortality based on: Decision regarding hospitilization or escalation of hosp level of care - Departure Departure Disposition: Observation Clinical Impression: Acute pancreatitis, Transaminitis, Total bilirubin, elevated, Vomiting with nausea, not intractable, Upper abdominal pain, Alcohol abuse, History of alcohol withdrawal syndrome Condition: Stable Critical Care Time: No Referrals: DOCTOR,NO FAMILY [Primary Care Provider] - Follow up/PCP as directed
[2024-05-17] MEDS ORDERED: Zofran 4 MG/2 ML VIAL ONE (22:04)
[2024-05-17] MEDS ORDERED: MORPHINE SULFATE 2 MG INJ ONE (22:04)
[2024-05-17] MEDS ORDERED: Sodium Chloride 0.9% 1000 ML 1,000 ML ONE ×2 (22:05→23:19)
[2024-05-17] MEDS: Zofran 4 MG/2 ML VIAL IV ONE (22:07)
[2024-05-17] MEDS: Sodium Chloride 0.9% 1000 ML 1,000 ML IV STA ×2 (22:07→23:22)
[2024-05-17] MEDS: MORPHINE SULFATE 2 MG INJ IV ONE (22:09)
[2024-05-17 22:18] LABS: BASOPHIL % 0.7 % (0.1-1.2); Basophil (Absolute #) 0.05 x10^3/uL (0.01-0.08); Eosinophil (Absolute #) 0.07 x10^3/uL (0.04-0.36); Hematocrit 45.7 % (34.1-44.9); Hemoglobin 15.6 g/dL (11.2-15.7); IMMATURE GRAN # 0.02 x10^3u/L (0.001-0.031); IMMATURE GRAN % 0.3 % (0.001-0.429); Lymphocyte (Absolute #) 1.06 x10^3/uL (1.18-3.74); Lymphocytes % 14.8 % (19.3-51.7); Mean Cell Volume 92.5 fL (79.4-94.8); Mean Corpuscular Hemoglobin 31.6 pg (25.6-32.2); Mean Corpuscular Hgb Concent. 34.1 g/dL (32.2-35.5); Mean Platelet Volume 10.2 fL (9.4-12.3); Monocyte (Absolute #) 0.75 x10^3/uL (0.24-0.86); Monocytes % 10.5 % (4.7-12.5); Neutrophil % 72.7 % (34.0-71.1); Platelet Count 284 x10^3/uL (182-369); Red Blood Count 4.94 x10^6/uL (3.93-5.22); Red Cell Distribution Width 13.5 % (11.7-14.4); White Blood Count 7.2 x10^3/uL (3.98-10.04)
[2024-05-17 22:23] LABS: ALBUMIN 4.2 g/dL (3.5-5.0); ANION GAP 18.2 MEQ/L (5-15); BILIRUBIN,TOTAL 1.4 mg/dL (0.2-1.3); Calcium 8.8 mg/dL (8.4-10.2); Creatinine 1 0.56 mg/dL (0.52-1.04); EST GLOMERULAR FILTRATION RATE 122.7 ML/MIN; Potassium 3.2 mmol/L (3.5-5.1); Total Protein 7.5 g/dL (6.3-8.2)
[2024-05-17 22:24] LABS: INR 1.09 (0.8-3.0); PROTIME 11.8 SECONDS (9.4-12.5)
[2024-05-17] MEDS ORDERED: Ativan 2 MG/1 ML VIAL ONE (22:30)
[2024-05-17] MEDS ORDERED: MORPHINE SULFATE 4 MG INJ ONE (22:30)
[2024-05-17] MEDS: MORPHINE SULFATE 4 MG INJ IV ONE (22:32)
[2024-05-17] MEDS: Ativan 2 MG/1 ML VIAL IV ONE (22:32)
[2024-05-17 22:54] LABS: MAGNESIUM 1.7 mg/dL (1.6-2.3); PHOSPHOROUS 3.7 mg/dL (2.5-4.5); TSH, 3RD Generation 0.64 mIU/L (0.470-4.680)
[2024-05-17] MEDS ORDERED: TRANDATE 20 MG/4 ML SYRINGE IV ONE (23:19)
[2024-05-17] MEDS: TRANDATE 20 MG/4 ML SYRINGE IV ONE (23:21)
[2024-05-17] MEDS: POTASSIUM CHLORIDE 20 mEq IN WATER 100ML 20 MEQ/100 ML BAG IV SCH (23:34)
--- NOTE | 2024-05-18 00:37 | PCM.HP ---
History of Present Illness - Chief Complaint Chief Complaint: abdominal pain, vomiting Date: 05/17/24 History of Present Illness: 33 y/o F with h/o alcohol abuse and GERD who presents with abdominal pain. Patient drinks about 20-30 shots of apple Zach Beam per day, particularly over this past weekend. She presents today complaining of stabbing/burning epigastric abdominal pain for the past three days, associated with severe nausea & vomiting, unable to tolerate PO x3 days, with constipation today, and some subjective fevers. She states pain is similar in nature to prior times she has had pancreatitis, but much more severe this time. She had a cholecystectomy in [place]. She initially was in the ED yesterday (Saturday), diagnosed with alcoholic gastritis, and seemed to be improving, so discharged home. However, she continued to drink, and pain was worse today, so came back to the ED. Her last drink was today around 6 pm. She notes that when she doesn't drink alcohol, she starts to see things, and has some tremors. She denies ever being hospitalized in the past for alcohol withdrawal or pancreatitis. - Review of Systems Constitutional: Fever, Chills, Malaise, No Fatigue, No Night Sweats Eyes: No Vision Changes Ears, Nose, & Throat: Nose Congestion, No Throat Pain Respiratory: No Cough, No Short Of Breath Cardiac: No Chest Pain, No Edema, No Palpitations Abdominal/Gastrointestinal: Abdominal Pain, Nausea, Vomiting, Constipation, No Hematemesis, No Hematochezia, No Melena Genitourinary Symptoms: No Dysuria, No Frequency Neurological: Other (mild tremors), No Headache, No Seizure Psychological: Hallucinations Medications & Allergies Home Medications: Home Medication List Ondansetron ODT 4 MG [Zofran Odt 4 mg] 1 ea PO QIDPRN PRN #7 tablet 05/17/24 [Rx Confirmed 05/17/24] Sucralfate 1 gm [Carafate 1 GM] 1 g PO ACHS #20 tablet 05/17/24 [Rx Confirmed 05/17/24] Allergies/Adverse Reactions: Allergies Allergy/AdvReac Type Severity Reaction Status Date / Time No Known Drug Allergies Allergy Verified 05/17/24 21:39 - Past Medical History Past Medical History: Yes Neurological History: Migraines ENT History: No Pertinent History Cardiac History: No Pertinent History Respiratory History: No Pertinent History Endocrine Medical History: No Pertinent History Musculoskelatal History: No Pertinent History GI Medical History: No Pertinent History, Gallbladder Disease (cholelithiasis, s/p cholecystectomy December 2023), Pancreatitis History: No Pertinent History Pyscho-Social History: Anxiety, Bipolar, Depression, Other Reproductive Disorders: No Pertinent History Comment: multiple personality disorder - Female History Hx Last Menstrual Period: last week Are you now?: No - Past Surgical History Past Surgical History: No Neuro Surgical History: No Pertinent History Cardiac History: No Pertinent History Respiratory Surgery: No Pertinent History GI Surgical History: Cholecystectomy Genitourinary Surgical Hx: No Pertinent History Musculskeletal Surgical Hx: No Pertinent History Female Surgical History: No Pertinent History Significant Family History: hypertension (father) - Social History Smoking Status: Current some day smoker (vapes) How long have you smoked: years Exposure to second hand smoke: No Alcohol: Heavy (drinks 20-30 shooters Zach Beam daily) Drug Use: none - Social Determinants of Health Will the patient participate in the screening: Declined to provide Do you worry about a steady place to live?: No In the past 12 months,have you had to go without utilities?: No Have you or anyone in your house had to go without enough: No Transportation Issues: No Has anyone in your support network made you feel unsafe?: No Does the patient want assistance with any of the above?: No - Physical Exam Vital Signs: Vital Signs - 24 hr Temp Pulse Resp BP BP Pulse Ox 05/17/24 23:25 98 05/17/24 23:00 126 H 18 155/128 97 05/17/24 22:30 141/100 99 05/17/24 21:39 97.5 F 109 H 18 132/113 98 General Appearance: no apparent distress Neurologic Exam: alert, oriented x 3, other (no tremor noted), No intoxicated appearance, No slurred speech Respiratory Exam: normal breath sounds, lungs clear, No respiratory distress Cardiovascular Exam: regular rate/rhythm, normal heart sounds, No edema Gastrointestinal/Abdomen Exam: tenderness (diffusely tender without guarding or rebound) Results - Labs Lab/Micro Results: Laboratory Result Diagrams - Last 24 hours 05/17/24 22:09 05/17/24 22:09 Lactate 4.1 INR 1.1 TotalBili 1.4, AST 427, ALT 152, AlkPhos 204, Albumin 4.2, TotProt 7.5 Lipase 4566 (was 638 yesterday) TSH 0.64 - Radiology Impressions Radiology Exams & Impressions: CT Abd/pelvis (done 05/17 during prior ED visit) - Showed fatty infiltration of liver, but no dilated biliary tracts. Pancreas unremarkable with no stranding at that time. Assessment/Plan (1) Acute alcoholic pancreatitis Current Visit: Yes Status: Acute Assessment & Plan: 33 y/o F with h/o alcohol abuse, here with pancreatitis. ## Acute alcoholic pancreatitis - heavy alcohol drinking appears to be cause; patient has h/o cholecystectomy. No abscess or phlegmon noted on CT yesterday, but lipase worse today with continued drinking. Had some systemic inflammatory signs, but no concerns for sepsis (SIRS, but no infectious source) - the elevated lactate was from the hepatitis (see below). - NPO - PRN Morphine 4 mg - PRN zofran - NS at 150 ml/hr - will add back diet gently as tolerated ## Alcoholic hepatitis - with heavy AST over ALT predominance, and heavy alcohol abuse. Fatty liver on CT yesterday, but no evidence of cirrhosis. However, is likely the cause of the elevated lactate. Mild; discriminant function is only 5. - IV fluids - will repeat lactate to ensure improving, but patient's clinical evaluation of peripheral perfusion is good ## Alcohol dependence - with h/o early withdrawal signs in the past. - place on CIWA protocol - IV fluids as above, but will substitute one banana bag per day - thiamine 100 mg daily, folate 1 mg daily ## constipation - PRN dulcolax suppository Code(s): K85.20 - ALCOHOL INDUCED ACUTE PANCREATITIS WITHOUT NECROSIS OR INFCT Telemedicine Encounter - Telemedicine Encounter Telemedicine Encounter: "The entirety of this encounter was performed via Telemedicine" This visit was performed using real-time audio and video connection between my location and thepatients locationwith the assistance of a surrogateat the patients location. Written or verbal consent was obtained from the p atient/guardian to perform this visit usingsynchrAttensatelemedicine technology. Any patient questions regarding the telemedicine interaction were answered.
[2024-05-18] MEDS: Sodium Chloride 0.9% 1000 ML 1,000 ML IV SCH (00:43)
[2024-05-18] MEDS: MORPHINE SULFATE 4 MG INJ IV PRN (00:43)
[2024-05-18] MEDS: Zofran 4 MG/2 ML VIAL IV PRN (00:43)
[2024-05-18] MEDS: Dulcolax 10 MG SUPP PR PRN (01:44)
[2024-05-18] MEDS ORDERED: POTASSIUM CHLORIDE 20 mEq IN WATER 100ML 20 MEQ/100 ML BAG IV SCH (02:00)
[2024-05-18] MEDS ORDERED: Phenergan 25 MG INJ ONE (02:53)
[2024-05-18] MEDS ORDERED: Sodium Chloride 0.9% 100 ML ONE (02:53)
[2024-05-18 02:58] LABS: Appearance Clear (Clear); Bilirubin Negative (Negative); Blood Negative (Negative); Glucose, Urine 100 mg/dL (Negative); Ketones 15 (Negative); Leukocyte Esterase Negative (Negative); Nitrite Positive (Negative); Ph 5.5 (4.6-8.0); Protein,Urine Dip Negative (Negative); Urobilinogen 0.2 mg/dL (0.2)
[2024-05-18 02:59] LABS: Bacteria Many /HPF (None Seen); Epithelial Cells None Seen /HPF (None Seen); Hyaline Casts NONE SEEN /LPF (0-2); RBC 0-2 /HPF (0-5); WBC 0-2 /HPF (0-5)
[2024-05-18] MEDS: Phenergan 25 MG INJ*** 12.5 MG in Sodium Chloride 0.9% 100 ML IV ONE (02:59)
[2024-05-18 03:04] LABS: Amphetamine,Urine NEGATIVE (NEGATIVE); Barbiturate,Urine NEGATIVE (NEGATIVE); Benzodiazepine,Urine NEGATIVE (NEGATIVE); Cocaine,Urine NEGATIVE (NEGATIVE); Methadone,Urine NEGATIVE (NEGATIVE); Opiate,Urine POSITIVE (NEGATIVE); PCP,Urine NEGATIVE (NEGATIVE); THC,Urine NEGATIVE (NEGATIVE)
[2024-05-18 03:06] LABS: ADD URINE CULTURE? NO (NO)
[2024-05-18 03:54] LABS: Hematocrit 42.9 % (34.1-44.9); Hemoglobin 14.1 g/dL (11.2-15.7); Mean Cell Volume 96.8 fL (79.4-94.8); Mean Corpuscular Hemoglobin 31.8 pg (25.6-32.2); Mean Corpuscular Hgb Concent. 32.9 g/dL (32.2-35.5); Mean Platelet Volume 10.2 fL (9.4-12.3); Platelet Count 240 x10^3/uL (182-369); Red Blood Count 4.43 x10^6/uL (3.93-5.22); Red Cell Distribution Width 13.6 % (11.7-14.4); White Blood Count 8.5 x10^3/uL (3.98-10.04)
[2024-05-18 04:07] LABS: ALBUMIN 3.5 g/dL (3.5-5.0); ALKALINE PHOSPHATASE 150 U/L (38-126); ANION GAP 14.6 MEQ/L (5-15); CHLORIDE 106 mmol/L (98-107); Calcium 7.1 mg/dL (8.4-10.2); Carbon Dioxide 20 mmol/L (22-30); Creatinine 1 0.49 mg/dL (0.52-1.04); EST GLOMERULAR FILTRATION RATE 126.8 ML/MIN; Glucose 130 mg/dL (74-106); Potassium 4.3 mmol/L (3.5-5.1); SGOT/AST 316 U/L (14-36); SGPT/ALT 124 U/L (0-35); SODIUM 136 mmol/L (135-145); Total Protein 6.5 g/dL (6.3-8.2)
[2024-05-18 04:08] LABS: BLOOD UREA NITROGEN < 2 mg/dL (7-17)
[2024-05-18 04:16] LABS: CHLAMYDIA DNA NOT DETECTED (NEGATIVE); GC DNA Probe NOT DETECTED (NEGATIVE)
[2024-05-18] MEDS: HEPARIN 5000 UNITS/0.5 ML (HIGH RISK MED) SQ SCH (05:19)
[2024-05-18] MEDS: Ativan 2 MG/1 ML VIAL IV PRN ×2 (05:27→18:06)
--- NOTE | 2024-05-18 05:56 | PCM.NOTE ---
Date and Time: 05/18/24 0569 Subjective Assessment: HPI: 33 y/o F with h/o alcohol abuse and GERD admitted 05/17/24 with complaints of stabbing/burning epigastric abdominal pain for the prior three days, associated with severe nausea & vomiting, unable to tolerate PO x3 days, with constipation today, and some subjective fevers. Patient drinks about 20-30 shots of apple Zach Beam per day, particularly over this past weekend. She states pain is similar in nature to prior times she has had pancreatitis, but much more severe this time. She had a cholecystectomy in December. She initially was in the ED yesterday (Saturday), diagnosed with alcoholic gastritis, and seemed to be improving, so discharged home. However, she continued to drink, and pain was worse today, so came back to the ED. Her last drink was today around 6 pm. She notes that when she doesn't drink alcohol, she starts to see things, and has some tremors. She denies ever being hospitalized in the past for alcohol withdrawal or pancreatitis although she did have previous admission 12/17/23 -12/24/23 with pancreatitis. 05/18/24: Met with patient bedside. Endorses continued RUQ abdominal pain 7/10 on numerical pain scale with nausea/vomiting. Tremors/hypertension/tachycardia this morning - initiated metoprolol. Discussed risks of continued alcohol abuse. Discussed OP treatment with Dr. Posey on discharge, she will think about this. - Review of Systems Constitutional: No Symptoms Eyes: No Symptoms Ears, Nose, & Throat: No Symptoms Respiratory: No Symptoms Cardiac: No Symptoms Abdominal/Gastrointestinal: Abdominal Pain, Nausea, Vomiting Genitourinary Symptoms: No Symptoms Musculoskeletal: No Symptoms Skin: No Symptoms Neurological: Tremors Psychological: Alcohol Abuse (last drink 05/17/24 1800) Endocrine: No Symptoms Hematologic/Lymphatic: No Symptoms Immunological/Allergic: No Symptoms Objective Exam General Appearance: no apparent distress Neurologic Exam: alert, oriented x 3, cooperative Skin Exam: pale Eye Exam: PERRL Ears, Nose, Throat Exam: normal ENT inspection Neck Exam: normal inspection Respiratory Exam: normal breath sounds, lungs clear Cardiovascular Exam: tachycardia Gastrointestinal/Abdomen Exam: soft, normal bowel sounds, tenderness (RUQ) Extremity Exam: normal inspection Back Exam: normal inspection Pelvic Exam: deferred Rectal Exam: deferred Objective Data Vital Signs: Vital Signs - 24 hr Temp Pulse Resp BP BP Pulse Ox 05/18/24 05:27 107 H 16 05/18/24 04:00 97.9 F 89 16 143/102 97 05/18/24 03:54 18 05/17/24 23:59 97.6 F 104 H 18 158/107 96 05/17/24 23:25 98 05/17/24 23:00 126 H 18 155/128 97 05/17/24 22:30 141/100 99 05/17/24 21:39 97.5 F 109 H 18 132/113 98 Pain Assessment - Last Documented Pain Intensity 6 Pain Scale Used 0-10 Pain Scale Intake and Output: Intake & Output 05/15/24 05/16/24 05/17/24 05/18/24 11:59 11:59 11:59 11:59 Output Total 500 Balance -500 Weight 62.1 kg Lab Results: Lab Results-Last 24 Hours 05/17/24 05/17/24 05/17/24 Range/Units 02:44 21:52 21:53 WBC (3.98-10.04) x10^3/uL RBC (3.93-5.22) x10^6/uL Hgb (11.2-15.7) g/dL Hct (34.1-44.9) % MCV (79.4-94.8) fL MCH (25.6-32.2) pg MCHC (32.2-35.5) g/dL RDW (11.7-14.4) % Plt Count (182-369) x10^3/uL MPV (9.4-12.3) fL Gran % (34.0-71.1) % Immature Gran % (Auto) (0.001-0.429) % Nucleat RBC Rel Count (0.00-0.2) % Eos # (Auto) (0.04-0.36) x10^3/uL Immature Gran # (Auto) (0.001-0.031) x10^3u/L Absolute Lymphs (auto) (1.18-3.74) x10^3/uL Absolute Monos (auto) (0.24-0.86) x10^3/uL Absolute Nucleated RBC (0.00-0.012) x10^3u/L Lymphocytes % (19.3-51.7) % Monocytes % (4.7-12.5) % Eosinophils % (0.7-5.8) % Basophils % (0.1-1.2) % Absolute Granulocytes (1.56-6.13) x10^3/uL Basophils # (0.01-0.08) x10^3/uL PT (9.4-12.5) SECONDS INR (0.8-3.0) Ionized Calcium (1.12-1.32) mmol/L Sodium (135-145) mmol/L Potassium (3.5-5.1) mmol/L Chloride (98-107) mmol/L Carbon Dioxide (22-30) mmol/L Anion Gap (5-15) MEQ/L BUN (7-17) mg/dL Creatinine (0.52-1.04) mg/dL Estimated GFR ML/MIN Glucose (74-106) mg/dL Hemoglobin A1c (4.5-6.0) % Lactic Acid (0.4-2.0) Calcium (8.4-10.2) mg/dL Phosphorus (2.5-4.5) mg/dL Magnesium (1.6-2.3) mg/dL Total Bilirubin (0.2-1.3) mg/dL AST (14-36) U/L ALT (0-35) U/L Alkaline Phosphatase (38-126) U/L Ammonia (9-30) umol/L Serum Total Protein (6.3-8.2) g/dL Albumin (3.5-5.0) g/dL Lipase (23-300) U/L TSH 3rd Generation (0.470-4.680) mIU/L Urine Color Yellow (Yellow) Urine Appearance Clear (Clear) Urine pH 5.5 (4.6-8.0) Ur Specific [place] 1.010 (1.005-1.030) Urine Protein Negative (Negative) Urine Glucose (UA) 100 A (Negative) mg/dL Urine Ketones 15 A (Negative) Urine Blood Negative (Negative) Urine Nitrite Positive A (Negative) Urine Bilirubin Negative (Negative) Urine Urobilinogen 0.2 (0.2) mg/dL Ur Leukocyte Esterase Negative (Negative) U Hyaline Cast (Auto) NONE SEEN (0-2) /LPF Urine Microscopic RBC 0-2 (0-5) /HPF Urine Microscopic WBC 0-2 (0-5) /HPF Ur Epithelial Cells None Seen (None Seen) /HPF Urine Bacteria Many A (None Seen) /HPF Urine Culture Reflexed NO (NO) Urine Opiates Level POSITIVE A (NEGATIVE) Ur Methadone NEGATIVE (NEGATIVE) Urine Barbiturates NEGATIVE (NEGATIVE) Ur Phencyclidine (PCP) NEGATIVE (NEGATIVE) Urine Amphetamine NEGATIVE (NEGATIVE) U Benzodiazepine Level NEGATIVE (NEGATIVE) Urine Cocaine NEGATIVE (NEGATIVE) Urine Marijuana (THC) NEGATIVE (NEGATIVE) Chlamydia DNA Probe NOT DETECTED (NEGATIVE) N.gonorrhoeae DNA Probe NOT DETECTED (NEGATIVE) 05/17/24 05/17/24 05/17/24 Range/Units 22:00 22:00 22:09 WBC 7.2 (3.98-10.04) x10^3/uL RBC 4.94 (3.93-5.22) x10^6/uL Hgb 15.6 (11.2-15.7) g/dL Hct 45.7 H (34.1-44.9) % MCV 92.5 (79.4-94.8) fL MCH 31.6 (25.6-32.2) pg MCHC 34.1 (32.2-35.5) g/dL RDW 13.5 (11.7-14.4) % Plt Count 284 (182-369) x10^3/uL MPV 10.2 (9.4-12.3) fL Gran % 72.7 H (34.0-71.1) % Immature Gran % (Auto) 0.3 (0.001-0.429) % Nucleat RBC Rel Count 0.0 (0.00-0.2) % Eos # (Auto) 0.07 (0.04-0.36) x10^3/uL Immature Gran # (Auto) 0.02 (0.001-0.031) x10^3u/L Absolute Lymphs (auto) 1.06 L (1.18-3.74) x10^3/uL Absolute Monos (auto) 0.75 (0.24-0.86) x10^3/uL Absolute Nucleated RBC 0.00 (0.00-0.012) x10^3u/L Lymphocytes % 14.8 L (19.3-51.7) % Monocytes % 10.5 (4.7-12.5) % Eosinophils % 1.0 (0.7-5.8) % Basophils % 0.7 (0.1-1.2) % Absolute Granulocytes 5.20 (1.56-6.13) x10^3/uL Basophils # 0.05 (0.01-0.08) x10^3/uL PT (9.4-12.5) SECONDS INR (0.8-3.0) Ionized Calcium 1.02 L (1.12-1.32) mmol/L Sodium (135-145) mmol/L Potassium (3.5-5.1) mmol/L Chloride (98-107) mmol/L Carbon Dioxide (22-30) mmol/L Anion Gap (5-15) MEQ/L BUN (7-17) mg/dL Creatinine (0.52-1.04) mg/dL Estimated GFR ML/MIN Glucose (74-106) mg/dL Hemoglobin A1c (4.5-6.0) % Lactic Acid 4.1 H (0.4-2.0) Calcium (8.4-10.2) mg/dL Phosphorus (2.5-4.5) mg/dL Magnesium (1.6-2.3) mg/dL Total Bilirubin (0.2-1.3) mg/dL AST (14-36) U/L ALT (0-35) U/L Alkaline Phosphatase (38-126) U/L Ammonia (9-30) umol/L Serum Total Protein (6.3-8.2) g/dL Albumin (3.5-5.0) g/dL Lipase (23-300) U/L TSH 3rd Generation (0.470-4.680) mIU/L Urine Color (Yellow) Urine Appearance (Clear) Urine pH (4.6-8.0) Ur Specific [place] (1.005-1.030) Urine Protein (Negative) Urine Glucose (UA) (Negative) mg/dL Urine Ketones (Negative) Urine Blood (Negative) Urine Nitrite (Negative) Urine Bilirubin (Negative) Urine Urobilinogen (0.2) mg/dL Ur Leukocyte Esterase (Negative) U Hyaline Cast (Auto) (0-2) /LPF Urine Microscopic RBC (0-5) /HPF Urine Microscopic WBC (0-5) /HPF Ur Epithelial Cells (None Seen) /HPF Urine Bacteria (None Seen) /HPF Urine Culture Reflexed (NO) Urine Opiates Level (NEGATIVE) Ur Methadone (NEGATIVE) Urine Barbiturates (NEGATIVE) Ur Phencyclidine (PCP) (NEGATIVE) Urine Amphetamine (NEGATIVE) U Benzodiazepine Level (NEGATIVE) Urine Cocaine (NEGATIVE) Urine Marijuana (THC) (NEGATIVE) Chlamydia DNA Probe (NEGATIVE) N.gonorrhoeae DNA Probe (NEGATIVE) 05/17/24 05/17/24 05/17/24 Range/Units 22:09 22:09 22:09 WBC (3.98-10.04) x10^3/uL RBC (3.93-5.22) x10^6/uL Hgb (11.2-15.7) g/dL Hct (34.1-44.9) % MCV (79.4-94.8) fL MCH (25.6-32.2) pg MCHC (32.2-35.5) g/dL RDW (11.7-14.4) % Plt Count (182-369) x10^3/uL MPV (9.4-12.3) fL Gran % (34.0-71.1) % Immature Gran % (Auto) (0.001-0.429) % Nucleat RBC Rel Count (0.00-0.2) % Eos # (Auto) (0.04-0.36) x10^3/uL Immature Gran # (Auto) (0.001-0.031) x10^3u/L Absolute Lymphs (auto) (1.18-3.74) x10^3/uL Absolute Monos (auto) (0.24-0.86) x10^3/uL Absolute Nucleated RBC (0.00-0.012) x10^3u/L Lymphocytes % (19.3-51.7) % Monocytes % (4.7-12.5) % Eosinophils % (0.7-5.8) % Basophils % (0.1-1.2) % Absolute Granulocytes (1.56-6.13) x10^3/uL Basophils # (0.01-0.08) x10^3/uL PT 11.8 (9.4-12.5) SECONDS INR 1.09 (0.8-3.0) Ionized Calcium (1.12-1.32) mmol/L Sodium 138 (135-145) mmol/L Potassium 3.2 L (3.5-5.1) mmol/L Chloride 102 (98-107) mmol/L Carbon Dioxide 21 L (22-30) mmol/L Anion Gap 18.2 H (5-15) MEQ/L BUN 2 L (7-17) mg/dL Creatinine 0.56 (0.52-1.04) mg/dL Estimated GFR 122.7 ML/MIN Glucose 165 H (74-106) mg/dL Hemoglobin A1c (4.5-6.0) % Lactic Acid (0.4-2.0) Calcium 8.8 (8.4-10.2) mg/dL Phosphorus 3.7 (2.5-4.5) mg/dL Magnesium 1.7 (1.6-2.3) mg/dL Total Bilirubin 1.40 H (0.2-1.3) mg/dL AST 427 H (14-36) U/L ALT 152 H (0-35) U/L Alkaline Phosphatase 204 H (38-126) U/L Ammonia (9-30) umol/L Serum Total Protein 7.5 (6.3-8.2) g/dL Albumin 4.2 (3.5-5.0) g/dL Lipase 4566 H (23-300) U/L TSH 3rd Generation 0.640 (0.470-4.680) mIU/L Urine Color (Yellow) Urine Appearance (Clear) Urine pH (4.6-8.0) Ur Specific [place] (1.005-1.030) Urine Protein (Negative) Urine Glucose (UA) (Negative) mg/dL Urine Ketones (Negative) Urine Blood (Negative) Urine Nitrite (Negative) Urine Bilirubin (Negative) Urine Urobilinogen (0.2) mg/dL Ur Leukocyte Esterase (Negative) U Hyaline Cast (Auto) (0-2) /LPF Urine Microscopic RBC (0-5) /HPF Urine Microscopic WBC (0-5) /HPF Ur Epithelial Cells (None Seen) /HPF Urine Bacteria (None Seen) /HPF Urine Culture Reflexed (NO) Urine Opiates Level (NEGATIVE) Ur Methadone (NEGATIVE) Urine Barbiturates (NEGATIVE) Ur Phencyclidine (PCP) (NEGATIVE) Urine Amphetamine (NEGATIVE) U Benzodiazepine Level (NEGATIVE) Urine Cocaine (NEGATIVE) Urine Marijuana (THC) (NEGATIVE) Chlamydia DNA Probe (NEGATIVE) N.gonorrhoeae DNA Probe (NEGATIVE) 05/17/24 05/17/24 05/18/24 Range/Units 22:09 22:09 03:48 WBC (3.98-10.04) x10^3/uL RBC (3.93-5.22) x10^6/uL Hgb (11.2-15.7) g/dL Hct (34.1-44.9) % MCV (79.4-94.8) fL MCH (25.6-32.2) pg MCHC (32.2-35.5) g/dL RDW (11.7-14.4) % Plt Count (182-369) x10^3/uL MPV (9.4-12.3) fL Gran % (34.0-71.1) % Immature Gran % (Auto) (0.001-0.429) % Nucleat RBC Rel Count (0.00-0.2) % Eos # (Auto) (0.04-0.36) x10^3/uL Immature Gran # (Auto) (0.001-0.031) x10^3u/L Absolute Lymphs (auto) (1.18-3.74) x10^3/uL Absolute Monos (auto) (0.24-0.86) x10^3/uL Absolute Nucleated RBC (0.00-0.012) x10^3u/L Lymphocytes % (19.3-51.7) % Monocytes % (4.7-12.5) % Eosinophils % (0.7-5.8) % Basophils % (0.1-1.2) % Absolute Granulocytes (1.56-6.13) x10^3/uL Basophils # (0.01-0.08) x10^3/uL PT (9.4-12.5) SECONDS INR (0.8-3.0) Ionized Calcium (1.12-1.32) mmol/L Sodium (135-145) mmol/L Potassium (3.5-5.1) mmol/L Chloride (98-107) mmol/L Carbon Dioxide (22-30) mmol/L Anion Gap (5-15) MEQ/L BUN (7-17) mg/dL Creatinine (0.52-1.04) mg/dL Estimated GFR ML/MIN Glucose (74-106) mg/dL Hemoglobin A1c 5.21 (4.5-6.0) % Lactic Acid 2.9 H (0.4-2.0) Calcium (8.4-10.2) mg/dL Phosphorus (2.5-4.5) mg/dL Magnesium (1.6-2.3) mg/dL Total Bilirubin (0.2-1.3) mg/dL AST (14-36) U/L ALT (0-35) U/L Alkaline Phosphatase (38-126) U/L Ammonia 20 (9-30) umol/L Serum Total Protein (6.3-8.2) g/dL Albumin (3.5-5.0) g/dL Lipase (23-300) U/L TSH 3rd Generation (0.470-4.680) mIU/L Urine Color (Yellow) Urine Appearance (Clear) Urine pH (4.6-8.0) Ur Specific [place] (1.005-1.030) Urine Protein (Negative) Urine Glucose (UA) (Negative) mg/dL Urine Ketones (Negative) Urine Blood (Negative) Urine Nitrite (Negative) Urine Bilirubin (Negative) Urine Urobilinogen (0.2) mg/dL Ur Leukocyte Esterase (Negative) U Hyaline Cast (Auto) (0-2) /LPF Urine Microscopic RBC (0-5) /HPF Urine Microscopic WBC (0-5) /HPF Ur Epithelial Cells (None Seen) /HPF Urine Bacteria (None Seen) /HPF Urine Culture Reflexed (NO) Urine Opiates Level (NEGATIVE) Ur Methadone (NEGATIVE) Urine Barbiturates (NEGATIVE) Ur Phencyclidine (PCP) (NEGATIVE) Urine Amphetamine (NEGATIVE) U Benzodiazepine Level (NEGATIVE) Urine Cocaine (NEGATIVE) Urine Marijuana (THC) (NEGATIVE) Chlamydia DNA Probe (NEGATIVE) N.gonorrhoeae DNA Probe (NEGATIVE) 05/18/24 05/18/24 Range/Units 03:52 03:52 WBC 8.5 (3.98-10.04) x10^3/uL RBC 4.43 (3.93-5.22) x10^6/uL Hgb 14.1 (11.2-15.7) g/dL Hct 42.9 (34.1-44.9) % MCV 96.8 H (79.4-94.8) fL MCH 31.8 (25.6-32.2) pg MCHC 32.9 (32.2-35.5) g/dL RDW 13.6 (11.7-14.4) % Plt Count 240 (182-369) x10^3/uL MPV 10.2 (9.4-12.3) fL Gran % (34.0-71.1) % Immature Gran % (Auto) (0.001-0.429) % Nucleat RBC Rel Count (0.00-0.2) % Eos # (Auto) (0.04-0.36) x10^3/uL Immature Gran # (Auto) (0.001-0.031) x10^3u/L Absolute Lymphs (auto) (1.18-3.74) x10^3/uL Absolute Monos (auto) (0.24-0.86) x10^3/uL Absolute Nucleated RBC (0.00-0.012) x10^3u/L Lymphocytes % (19.3-51.7) % Monocytes % (4.7-12.5) % Eosinophils % (0.7-5.8) % Basophils % (0.1-1.2) % Absolute Granulocytes (1.56-6.13) x10^3/uL Basophils # (0.01-0.08) x10^3/uL PT (9.4-12.5) SECONDS INR (0.8-3.0) Ionized Calcium (1.12-1.32) mmol/L Sodium 136 (135-145) mmol/L Potassium 4.3 D (3.5-5.1) mmol/L Chloride 106 (98-107) mmol/L Carbon Dioxide 20 L (22-30) mmol/L Anion Gap 14.6 (5-15) MEQ/L BUN < 2 L (7-17) mg/dL Creatinine 0.49 L (0.52-1.04) mg/dL Estimated GFR 126.8 ML/MIN Glucose 130 H (74-106) mg/dL Hemoglobin A1c (4.5-6.0) % Lactic Acid (0.4-2.0) Calcium 7.1 L D (8.4-10.2) mg/dL Phosphorus (2.5-4.5) mg/dL Magnesium (1.6-2.3) mg/dL Total Bilirubin 1.30 (0.2-1.3) mg/dL AST 316 H (14-36) U/L ALT 124 H (0-35) U/L Alkaline Phosphatase 150 H (38-126) U/L Ammonia (9-30) umol/L Serum Total Protein 6.5 (6.3-8.2) g/dL Albumin 3.5 (3.5-5.0) g/dL Lipase (23-300) U/L TSH 3rd Generation (0.470-4.680) mIU/L Urine Color (Yellow) Urine Appearance (Clear) Urine pH (4.6-8.0) Ur Specific [place] (1.005-1.030) Urine Protein (Negative) Urine Glucose (UA) (Negative) mg/dL Urine Ketones (Negative) Urine Blood (Negative) Urine Nitrite (Negative) Urine Bilirubin (Negative) Urine Urobilinogen (0.2) mg/dL Ur Leukocyte Esterase (Negative) U Hyaline Cast (Auto) (0-2) /LPF Urine Microscopic RBC (0-5) /HPF Urine Microscopic WBC (0-5) /HPF Ur Epithelial Cells (None Seen) /HPF Urine Bacteria (None Seen) /HPF Urine Culture Reflexed (NO) Urine Opiates Level (NEGATIVE) Ur Methadone (NEGATIVE) Urine Barbiturates (NEGATIVE) Ur Phencyclidine (PCP) (NEGATIVE) Urine Amphetamine (NEGATIVE) U Benzodiazepine Level (NEGATIVE) Urine Cocaine (NEGATIVE) Urine Marijuana (THC) (NEGATIVE) Chlamydia DNA Probe (NEGATIVE) N.gonorrhoeae DNA Probe (NEGATIVE) Assessment/Plan (1) Acute alcoholic pancreatitis Current Visit: Yes Status: Acute Assessment & Plan: -CT 05/16/24 with no abscess or phlegmon -Previous admission 38-12/24/23 -Supportive care -PRN morphine/zofran -NPO -IVF -ADAT -monitor electrolytes Code(s): K85.20 - ALCOHOL INDUCED ACUTE PANCREATITIS WITHOUT NECROSIS OR INFCT (2) Alcoholic hepatitis Current Visit: Yes Status: Acute Assessment & Plan: -CT 05/16/24 with fatty liver - no evidence of cirrhosis -most likely cause of elevated lactic -repeat downtrending at 2.9 -Continue IVF Code(s): K70.10 - ALCOHOLIC HEPATITIS WITHOUT ASCITES (3) Alcohol dependence Current Visit: Yes Status: Acute Assessment & Plan: - place on [facility] protocol - IV fluids as above, but will substitute one banana bag per day - Discussed OP treatment with Dr. Posey, patient will think about it Code(s): F10.20 - ALCOHOL DEPENDENCE, UNCOMPLICATED (4) Constipation Current Visit: Yes Status: Acute Assessment & Plan: - PRN dulcolax suppository Code(s): K59.00 - CONSTIPATION, UNSPECIFIED (5) Tachycardia Current Visit: Yes Status: Acute Assessment & Plan: -add metoprolol 25mg bid Code(s): R00.0 - TACHYCARDIA, UNSPECIFIED
[2024-05-18] MEDS: Calcium Gluconate 10% 1000 MG 1,000 MG in Sodium Chloride 0.9% 100 ML IV ONE (07:53)
[2024-05-18] MEDS ORDERED: THIAMINE 200 MG/2 ML*** 100 MG, Vitamins For Infusion 10 ML INJECTION*** 10 ML, FOLNATE... IV SCH (08:00)
[2024-05-18] MEDS ORDERED: FOLATE 1 MG PO SCH (10:00)
[2024-05-18] MEDS ORDERED: VITAMIN B-1 100 MG PO SCH (10:00)
[2024-05-18] MEDS: Lopressor 25MG Tab PO SCH ×2 (10:28→22:32)
[2024-05-18] MEDS: FOLNATE IV SCH (10:30)
[2024-05-18] MEDS: VITAMINS FOR INFUSION IV SCH (10:30)
[2024-05-18] MEDS: [UNRECOGNIZED DRUG - OTHER] IV SCH (10:30)
[2024-05-18] MEDS: Compazine 10 MG/2 ML IV PRN (12:30)
[2024-05-18] MEDS ORDERED: Lopressor 25MG Tab ONE ×2 (18:03→21:17)
[2024-05-18] MEDS: Lopressor 25MG Tab PO ONE (18:06)
[2024-05-18] MEDS: [UNRECOGNIZED DRUG - OTHER] IV SCH (22:04)
[2024-05-18] MEDS: DEXMEDETOMIDINE 200 MCG/50 ML IV SCH (22:04)
[2024-05-19 00:35] VITALS: BP 125/102; PULSE 109; RESP 18; TEMP 98.1; O2SAT 96
--- NOTE | 2024-05-19 11:00 | PCM.DS ---
Discharge Summary Date of Admission: 05/17/24 23:26 Date of Discharge: 05/18/24 Admitting Physician: KRZYSZTOF DE LOS SANTOS MD Primary Care Provider: NO FAMILY DOCTOR Allergies Allergies No Known Drug Allergies Allergy (Verified 05/17/24 21:39) Hospital Summary - Hospital Course Hospital Course: HPI: 33 y/o F with h/o alcohol abuse and GERD admitted 05/17/24 with complaints of stabbing/burning epigastric abdominal pain for the prior three days, associated with severe nausea & vomiting, unable to tolerate PO x3 days, with constipation today, and some subjective fevers. Patient drinks about 20-30 shots of apple Zach Beam per day, particularly over this past weekend. She states pain is similar in nature to prior times she has had pancreatitis, but much more severe this time. She had a cholecystectomy in December. She initially was in the ED yesterday (Saturday), diagnosed with alcoholic gastritis, and seemed to be improving, so discharged home. However, she continued to drink, and pain was worse today, so came back to the ED. Her last drink was today around 6 pm. She notes that when she doesn't drink alcohol, she starts to see things, and has some tremors. She denies ever being hospitalized in the past for alcohol withdrawal or pancreatitis although she did have previous admission 12/17/23 -12/24/23 with pancreatitis. 05/18/24: Met with patient bedside. Endorses continued RUQ abdominal pain 7/10 on numerical pain scale with nausea/vomiting. Tremor s/hypertension/tachycardia/hallucinations this morning - initiated metoprolol. Discussed risks of continued alcohol abuse. Discussed OP treatment with Dr. Posey on discharge, she will think about this. Patient requiring ICU for severe alcoholic withdrawal/pancreatitis. HR consistently in the 160's despite treatment with CIWA protocol and metoprolol. Precedex initiated. Transfer requested for higher level of care - accepted at [facility] and transferred. Discharge Note Latest Assessment & Plan (1) Acute alcoholic pancreatitis Current Visit: Yes Status: Acute Assessment & Plan: -CT 05/16/24 with no abscess or phlegmon -Previous admission 38-12/24/23 -Supportive care -PRN morphine/zofran -NPO -IVF -ADAT -monitor electrolytes Code(s): K85.20 - ALCOHOL INDUCED ACUTE PANCREATITIS WITHOUT NECROSIS OR INFCT (2) Alcoholic hepatitis Current Visit: Yes Status: Acute Assessment & Plan: -CT 05/16/24 with fatty liver - no evidence of cirrhosis -most likely cause of elevated lactic -repeat downtrending at 2.9 -Continue IVF Code(s): K70.10 - ALCOHOLIC HEPATITIS WITHOUT ASCITES (3) Alcohol dependence Current Visit: Yes Status: Acute Assessment & Plan: - place on [facility] protocol - IV fluids as above, but will substitute one banana bag per day - Discussed OP treatment with Dr. Posey, patient will think about it Code(s): F10.20 - ALCOHOL DEPENDENCE, UNCOMPLICATED (4) Constipation Current Visit: Yes Status: Acute Assessment & Plan: - PRN dulcolax suppository Code(s): K59.00 - CONSTIPATION, UNSPECIFIED (5) Tachycardia Current Visit: Yes Status: Acute Assessment & Plan: -add metoprolol 25mg bid Code(s): R00.0 - TACHYCARDIA, UNSPECIFIED I spent 35 minutes [id number] with the patient on the day of discharge performing discharge exam, discussing hospital stay and discharge instructions with patient and caregivers, preparation of discharge records, prescriptions & referral forms and addressing any questions/concerns the patient had as documented above. - Vitals & Intake/Output Vital Signs: Vital Signs Temperature 98.1 F 05/19/24 00:11 Pulse Rate 109 H 05/19/24 00:11 Respiratory Rate 18 05/19/24 00:11 Blood Pressure 125/102 05/19/24 00:11 O2 Sat by Pulse Oximetry 96 05/19/24 00:11 Intake & Output: Intake & Output 05/16/24 05/17/24 05/18/24 05/19/24 11:59 11:59 11:59 11:59 Output Total 500 Balance -500 Weight 62.1 kg - Lab Result Diagrams: 05/18/24 03:52 05/18/24 03:52 Micro Results-Entire Visit: Microbiology 05/18/24 10:50 Urine Culture - Preliminary Urine, Void GRAM NEGATIVE ID AND SENSITIVITY PENDING Discharge Exam General Appearance: moderate distress, lethargy Neurologic Exam: alert, disoriented, confusion, other (tremors/hallucinations) Eye Exam: PERRL Ears, Nose, Throat Exam: normal ENT inspection Neck Exam: normal inspection Respiratory Exam: normal breath sounds, lungs clear Cardiovascular Exam: tachycardia Gastrointestinal/Abdomen Exam: soft, normal bowel sounds, tenderness Pelvic Exam: deferred Rectal Exam: deferred Back Exam: normal inspection Extremity Exam: normal inspection Skin Exam: normal color Final Diagnosis/Problem List - Final Discharge Diagnosis/Problem (1) Acute alcoholic pancreatitis Status: Acute Code(s): K85.20 - ALCOHOL INDUCED ACUTE PANCREATITIS WITHOUT NECROSIS OR INFCT (2) Alcoholic hepatitis Status: Acute Code(s): K70.10 - ALCOHOLIC HEPATITIS WITHOUT ASCITES (3) Alcohol dependence Status: Acute Code(s): F10.20 - ALCOHOL DEPENDENCE, UNCOMPLICATED (4) Constipation Status: Acute Code(s): K59.00 - CONSTIPATION, UNSPECIFIED (5) Tachycardia Status: Acute Code(s): R00.0 - TACHYCARDIA, UNSPECIFIED - Discharge Disposition: DC TO [facility] Condition: Fair Prescriptions: No Action Sucralfate 1 gm [Carafate 1 GM] 1 g PO ACHS #20 tablet Ondansetron ODT 4 MG [Zofran Odt 4 mg] 1 ea PO QIDPRN PRN #7 tablet PRN Reason: n/v Follow up with: DOCTOR,NO FAMILY [Primary Care Provider] -
== END 2024-05-19 00:40 | disposition home or self-care (01) | DRG 440 ==
LOC: ED 21:37 → OBSVTOIN 23:26 → MED SURG 23:26 → ICU 05-18 11:49
PROVIDERS: ADMIT Internal Medicine; ATTEND Internal Medicine
DX: K85.20 Alcohol induced acute pancreatitis without necrosis or infection (principal); K70.10 Alcoholic hepatitis without ascites; F10.20 Alcohol dependence, uncomplicated; K59.00 Constipation, unspecified; R00.0 Tachycardia, unspecified; Z79.899 Other long term (current) drug therapy
CPT/HCPCS: 36000; 36415; 80053; 80061; 80307; 81001; 82140; 82330; 83036; 83605; 83690; 83721; 83735; 84100; 84443; 85025; 85027; 85610; 87077; 87086; 87186; 87491; 87591; 96374; 96375; 96376; 99285; J0612; J1644; J2060; J2270; J2405; J2550; J3480; Q3014; A9270-GY

== ENCOUNTER 2024-06-09 13:20 | Inpatient (IN) | payer BC ==
[2024-06-09 13:49] LABS: Absolute Neutrophil Ct (ANC) 5.35 x10^3/uL (1.56-6.13); BASOPHIL % 1.2 % (0.1-1.2); Eosinophil % 2.7 % (0.7-5.8); Eosinophil (Absolute #) 0.22 x10^3/uL (0.04-0.36); Hematocrit 42.2 % (34.1-44.9); Hemoglobin 14.4 g/dL (11.2-15.7); IMMATURE GRAN # 0.04 x10^3u/L (0.001-0.031); IMMATURE GRAN % 0.5 % (0.001-0.429); Lymphocyte (Absolute #) 1.91 x10^3/uL (1.18-3.74); Lymphocytes % 23.3 % (19.3-51.7); Mean Cell Volume 91.7 fL (79.4-94.8); Mean Corpuscular Hemoglobin 31.3 pg (25.6-32.2); Mean Corpuscular Hgb Concent. 34.1 g/dL (32.2-35.5); Mean Platelet Volume 9.8 fL (9.4-12.3); Monocyte (Absolute #) 0.56 x10^3/uL (0.24-0.86); Monocytes % 6.8 % (4.7-12.5); Neutrophil % 65.5 % (34.0-71.1); Platelet Count 500 x10^3/uL (182-369); Red Cell Distribution Width 12.1 % (11.7-14.4); White Blood Count 8.2 x10^3/uL (3.98-10.04)
[2024-06-09] MEDS ORDERED: Zofran 4 MG/2 ML VIAL ONE ×2 (13:49→15:31)
[2024-06-09] MEDS ORDERED: MORPHINE SULFATE 4 MG INJ ONE (13:49)
[2024-06-09] MEDS: Sodium Chloride 0.9% 1000 ML 1,000 ML IV SCH (13:50)
[2024-06-09] MEDS: MORPHINE SULFATE 4 MG INJ IV ONE (13:51)
[2024-06-09] MEDS: Zofran 4 MG/2 ML VIAL IV ONE ×2 (13:51→15:32)
[2024-06-09 14:13] LABS: HCG URINE TEST NEGATIVE (NEGATIVE)
[2024-06-09 14:19] LABS: ADD URINE CULTURE? YES (NO); Appearance Clear (Clear); Bacteria Few /HPF (None Seen); Bilirubin Small (Negative); Blood Negative (Negative); Epithelial Cells Moderate /HPF (None Seen); Glucose, Urine Negative (Negative); Hyaline Casts NONE SEEN /LPF (0-2); Ketones Trace (Negative); Leukocyte Esterase Small (Negative); Nitrite Negative (Negative); Protein,Urine Dip 30 (Negative); Specific Gravity 1.025 (1.005-1.030)
[2024-06-09 14:19] LABS: ALBUMIN 3.8 g/dL (3.5-5.0); ANION GAP 16.5 MEQ/L (5-15); BILIRUBIN,TOTAL 0.7 mg/dL (0.2-1.3); Calcium 9.2 mg/dL (8.4-10.2); Creatinine 1 0.52 mg/dL (0.52-1.04); Potassium 3.2 mmol/L (3.5-5.1); Total Protein 7.2 g/dL (6.3-8.2)
--- NOTE | 2024-06-09 14:43 | ERPHSYRPT ---
- History of Present Illness Time Seen by Provider: 06/09/24 13:50 Source: patient Exam Limitations: no limitations Patient Subjective Stated Complaint: pt states upper abd pain Triage Nursing Assessment: pt ambulated into the er; pt is axo x4; c/o abd pain; pt states 10/10 pain to RUQ and LUQ; active bowel sounds in all quads; c/o N/V/D; skin PDW; no respiratory distress present; tachycardic Physician History: Patient is a 33-year-old female history of cholecystectomy and pancreatitis presents to our ED for evaluation of epigastric pain that started yesterday. Patient states she is unable to tolerate oral intake. Patient vomits with solids but able to tolerate liquids a little better. Patient's epigastric pain has been progressively worsening. Pain described as an ache. No radiation. Patient reports that she no longer has her gallbladder. Physical exam reveals epigastric tenderness. Overlying soft tissue intact. No signs of trauma. Symptoms are moderate in intensity. Palpation reproduces pain. Pain improved somewhat with rest. Patient is nauseous as well. Sister at bedside. They voiced no other complaints or concerns at this time. Portions of this note were created with voice recognition technology. There may be grammatical, spelling, punctuation or sound alike errors Timing/Duration: yesterday Severity: moderate Modifying Factors: Improves With: nothing Associated Symptoms: denies symptoms Allergies/Adverse Reactions: No Known Drug Allergies Allergy (Verified 06/09/24 13:33) Home Medications: No Reportable Medications [No Reported Medications] 06/09/24 [History] Hx Tetanus, Diphtheria Vaccination/Date Given: Yes Hx Influenza Vaccination/Date Given: No Hx Pneumococcal Vaccination/Date Given: No Travel Risk - International Travel Have you traveled outside of the country in past 3 weeks: No - Emerging Infectious Disease Are you exhibiting symptoms associated with any current EIDs: Yes Symptoms: Abdominal Pain - Review of Systems Constitutional: No Symptoms, No Fever, No Chills Eyes: No Symptoms Ears, Nose, & Throat: No Symptoms Respiratory: No Symptoms, No Cough, No Dyspnea Cardiac: No Symptoms, No Chest Pain, No Edema, No Syncope Abdominal/Gastrointestinal: No Symptoms, No Abdominal Pain, No Nausea, No Vomiting, No Diarrhea Genitourinary Symptoms: No Symptoms, No Dysuria Musculoskeletal: No Symptoms, No Back Pain, No Neck Pain Skin: No Symptoms, No Rash Neurological: No Symptoms, No Dizziness, No Focal Weakness, No Sensory Changes Psychological: No Symptoms Endocrine: No Symptoms Hematologic/Lymphatic: No Symptoms Immunological/Allergic: No Symptoms All Other Systems: Reviewed and Negative - Past Medical History Pertinent Past Medical History: Yes Neurological History: Migraines ENT History: No Pertinent History Cardiac History: No Pertinent History Respiratory History: No Pertinent History Endocrine Medical History: No Pertinent History Musculoskeletal History: No Pertinent History GI Medical History: No Pertinent History, Gallbladder Disease, Pancreatitis History: No Pertinent History Psycho-Social History: Anxiety, Bipolar, Depression, Other Female Reproductive Disorders: No Pertinent History Other Medical History: multiple personality disorder - Past Surgical History Past Surgical History: Yes Neuro Surgical History: No Pertinent History Cardiac: No Pertinent History Respiratory: No Pertinent History Gastrointestinal: Cholecystectomy Genitourinary: No Pertinent History Musculoskeletal: No Pertinent History Female Surgical History: No Pertinent History Significant Family History: hypertension (father) - Female History Hx Last Menstrual Period: last week Hx Now: No - Social History Smoking Status: Light tobacco smoker How long have you smoked: years Exposure to second hand smoke: Yes Drug Use: none Patient Lives Alone: No - Social Determinants of Health Will the patient participate in the screening: Declined to provide Do you worry about a steady place to live?: No In the past 12 months,have you had to go without utilities?: No Transportation Issues: No Has anyone in your support network made you feel unsafe?: No Have you or anyone in your house had to go without enough: No - Nursing Vital Signs Nursing Vital Signs: Initial Vital Signs Temperature 98.3 F 06/09/24 13:34 Pulse Rate 123 H 06/09/24 13:34 Respiratory Rate 20 06/09/24 13:34 Blood Pressure 137/106 06/09/24 13:34 O2 Sat by Pulse Oximetry 99 06/09/24 13:34 Pain Scale Pain Intensity 6 - Physical Exam General Appearance: no apparent distress, alert Eye Exam: PERRL/EOMI, eyes nml inspection Ears, Nose, Throat Exam: normal ENT inspection, moist mucous membranes Neck Exam: normal inspection, full range of motion Respiratory Exam: normal breath sounds, lungs clear, airway intact, No respiratory distress Cardiovascular Exam: regular rate/rhythm, normal heart sounds, normal peripheral pulses Gastrointestinal/Abdomen Exam: soft, normal bowel sounds, No tenderness, No mass Back Exam: normal inspection, normal range of motion, No CVA tenderness, No vertebral tenderness Extremity Exam: normal inspection, normal range of motion Neurologic Exam: alert, oriented x 3, cooperative, normal mood/affect, sensation nml, No motor deficits Skin Exam: normal color, warm, dry, No rash Lymphatic Exam: No adenopathy SpO2 Interpretation: normal SpO2: 99 O2 Delivery: Room Air - Course Nursing assessment & vital signs reviewed: Yes - CT Exams Abdomen/Pelvis CT Interpretation: Tele-radiologist Report (Mild pancreatitis with minimal free fluid) Ordered Tests: Active Orders 24 hr Category Date Time Status IV Insertion STAT Care 06/09/24 13:37 Active Telemetry q4h Care 06/09/24 15:38 Active ABDOMEN AND PELVIS W CONTRAST [CT] Stat Exams 06/09/24 13:38 Completed CBC W DIFF Stat Lab 06/09/24 13:40 Completed CMP Stat Lab 06/09/24 13:40 Completed CULTURE,URINE Stat Lab 06/09/24 13:58 Received HCG QUALITATIVE, URINE Stat Lab 06/09/24 13:58 Completed LIPASE Stat Lab 06/09/24 13:40 Completed TROPONIN Q4H Lab 06/09/24 13:40 Completed TROPONIN Q4H Lab 06/09/24 17:45 Ordered TROPONIN Q4H Lab 06/09/24 21:45 Ordered UA W/RFX UR CULTURE Stat Lab 06/09/24 13:58 Completed Transfer Order Routine Transfer 06/09/24 Ordered Medication Summary Generic Name Dose Route Start Last Admin Trade Name Freq PRN Reason Stop Dose Admin Sodium Chloride 1,000 mls @ 100 mls/hr 06/09/24 13:45 06/09/24 13:50 Sodium Chloride 0.9% 1000 Ml IV 07/09/24 13:44 100 mls/hr .Q10H DANE Administration Magnesium Sulfate/Dextrose 100 mls @ 100 mls/hr 06/09/24 15:45 Magnesium 1 Gm / 100 Ml D5w IV 06/09/24 17:44 Q1H DANE Potassium Chloride 20 meq in 100 mls @ 50 mls/hr 06/09/24 15:45 Potassium Chloride 20 Meq In Water 100ml IV 06/09/24 19:44 Q2H DANE Discontinued Medications Generic Name Dose Route Start Last Admin Trade Name Freq PRN Reason Stop Dose Admin Hydromorphone HCl 0.5 mg 06/09/24 15:28 06/09/24 15:33 Hydromorphone 1 Mg/1ml Inj IV 06/09/24 15:29 0.5 mg STAT ONE Administration Hydromorphone HCl Confirm 06/09/24 15:31 Hydromorphone 1 Mg/1ml Inj Administered 06/09/24 15:32 Dose 1 mg .ROUTE .STK-MED ONE Morphine Sulfate 4 mg 06/09/24 13:37 06/09/24 13:51 Morphine Sulfate 4 Mg/Ml Injection IV 06/09/24 13:38 4 mg STAT ONE Administration Morphine Sulfate Confirm 06/09/24 13:49 Morphine Sulfate 4 Mg/Ml Injection Administered 06/09/24 13:50 Dose 4 mg .ROUTE .STK-MED ONE Ondansetron HCl 4 mg 06/09/24 13:37 06/09/24 13:51 Ondansetron Hcl 4 Mg/2 Ml Vial IV 06/09/24 13:38 4 mg STAT ONE Administration Ondansetron HCl Confirm 06/09/24 13:49 Ondansetron Hcl 4 Mg/2 Ml Vial Administered 06/09/24 13:50 Dose 4 mg .ROUTE .STK-MED ONE Ondansetron HCl 4 mg 06/09/24 15:28 06/09/24 15:32 Ondansetron Hcl 4 Mg/2 Ml Vial IV 06/09/24 15:29 4 mg STAT ONE Administration Ondansetron HCl Confirm 06/09/24 15:31 Ondansetron Hcl 4 Mg/2 Ml Vial Administered 06/09/24 15:32 Dose 4 mg .ROUTE .STK-MED ONE Potassium Chloride 40 meq 06/09/24 15:19 06/09/24 15:29 Potassium Chloride Tab 10 Meq Tab PO 06/09/24 15:20 40 meq STAT ONE Administration Potassium Chloride Confirm 06/09/24 15:29 Potassium Chloride Tab 10 Meq Tab Administered 06/09/24 15:30 Dose 40 meq .ROUTE .STK-MED ONE Lab/Rad Data: Laboratory Result Diagrams 06/09/24 13:40 06/09/24 13:40 Laboratory Results 06/09/24 06/09/24 06/09/24 Range/Units 13:58 13:58 13:40 WBC (3.98-10.04) x10^3/uL RBC (3.93-5.22) x10^6/uL Hgb (11.2-15.7) g/dL Hct (34.1-44.9) % MCV (79.4-94.8) fL MCH (25.6-32.2) pg MCHC (32.2-35.5) g/dL RDW (11.7-14.4) % Plt Count (182-369) x10^3/uL MPV (9.4-12.3) fL Gran % (34.0-71.1) % Immature Gran % (Auto) (0.001-0.429) % Nucleat RBC Rel Count (0.00-0.2) % Eos # (Auto) (0.04-0.36) x10^3/uL Immature Gran # (Auto) (0.001-0.031) x10^3u/L Absolute Lymphs (auto) (1.18-3.74) x10^3/uL Absolute Monos (auto) (0.24-0.86) x10^3/uL Absolute Nucleated RBC (0.00-0.012) x10^3u/L Lymphocytes % (19.3-51.7) % Monocytes % (4.7-12.5) % Eosinophils % (0.7-5.8) % Basophils % (0.1-1.2) % Absolute Granulocytes (1.56-6.13) x10^3/uL Basophils # (0.01-0.08) x10^3/uL Sodium (135-145) mmol/L Potassium (3.5-5.1) mmol/L Chloride (98-107) mmol/L Carbon Dioxide (22-30) mmol/L Anion Gap (5-15) MEQ/L BUN (7-17) mg/dL Creatinine (0.52-1.04) mg/dL Estimated GFR ML/MIN Glucose (74-106) mg/dL Calcium (8.4-10.2) mg/dL Total Bilirubin (0.2-1.3) mg/dL AST (14-36) U/L ALT (0-35) U/L Alkaline Phosphatase (38-126) U/L Troponin I 0.013 (0.000-0.033) ng/mL Serum Total Protein (6.3-8.2) g/dL Albumin (3.5-5.0) g/dL Lipase (23-300) U/L Urine Color Dark Yellow A (Yellow) Urine Appearance Clear (Clear) Urine pH 7.0 (4.6-8.0) Ur Specific [place] 1.025 (1.005-1.030) Urine Protein 30 (Negative) Urine Glucose (UA) Negative (Negative) mg/dL Urine Ketones Trace A (Negative) Urine Blood Negative (Negative) Urine Nitrite Negative (Negative) Urine Bilirubin Small A (Negative) Urine Urobilinogen 1.0 A (0.2) mg/dL Ur Leukocyte Esterase Small A (Negative) U Hyaline Cast (Auto) NONE SEEN (0-2) /LPF Urine Microscopic RBC 3-5 (0-5) /HPF Urine Microscopic WBC 3-5 (0-5) /HPF Ur Epithelial Cells Moderate A (None Seen) /HPF Urine Bacteria Few A (None Seen) /HPF Urine Culture Reflexed YES (NO) Urine HCG, Qual NEGATIVE (NEGATIVE) 06/09/24 06/09/24 Range/Units 13:40 13:40 WBC 8.2 (3.98-10.04) x10^3/uL RBC 4.60 (3.93-5.22) x10^6/uL Hgb 14.4 (11.2-15.7) g/dL Hct 42.2 (34.1-44.9) % MCV 91.7 (79.4-94.8) fL MCH 31.3 (25.6-32.2) pg MCHC 34.1 (32.2-35.5) g/dL RDW 12.1 (11.7-14.4) % Plt Count 500 H (182-369) x10^3/uL MPV 9.8 (9.4-12.3) fL Gran % 65.5 (34.0-71.1) % Immature Gran % (Auto) 0.5 H (0.001-0.429) % Nucleat RBC Rel Count 0.0 (0.00-0.2) % Eos # (Auto) 0.22 (0.04-0.36) x10^3/uL Immature Gran # (Auto) 0.04 H (0.001-0.031) x10^3u/L Absolute Lymphs (auto) 1.91 (1.18-3.74) x10^3/uL Absolute Monos (auto) 0.56 (0.24-0.86) x10^3/uL Absolute Nucleated RBC 0.00 (0.00-0.012) x10^3u/L Lymphocytes % 23.3 (19.3-51.7) % Monocytes % 6.8 (4.7-12.5) % Eosinophils % 2.7 (0.7-5.8) % Basophils % 1.2 (0.1-1.2) % Absolute Granulocytes 5.35 (1.56-6.13) x10^3/uL Basophils # 0.10 H (0.01-0.08) x10^3/uL Sodium 140 (135-145) mmol/L Potassium 3.2 L (3.5-5.1) mmol/L Chloride 102 (98-107) mmol/L Carbon Dioxide 24 (22-30) mmol/L Anion Gap 16.5 H (5-15) MEQ/L BUN 5 L (7-17) mg/dL Creatinine 0.52 (0.52-1.04) mg/dL Estimated GFR 125.0 ML/MIN Glucose 118 H (74-106) mg/dL Calcium 9.2 (8.4-10.2) mg/dL Total Bilirubin 0.70 (0.2-1.3) mg/dL AST 163 H (14-36) U/L ALT 99 H (0-35) U/L Alkaline Phosphatase 185 H (38-126) U/L Troponin I (0.000-0.033) ng/mL Serum Total Protein 7.2 (6.3-8.2) g/dL Albumin 3.8 (3.5-5.0) g/dL Lipase 214 (23-300) U/L Urine Color (Yellow) Urine Appearance (Clear) Urine pH (4.6-8.0) Ur Specific [place] (1.005-1.030) Urine Protein (Negative) Urine Glucose (UA) (Negative) mg/dL Urine Ketones (Negative) Urine Blood (Negative) Urine Nitrite (Negative) Urine Bilirubin (Negative) Urine Urobilinogen (0.2) mg/dL Ur Leukocyte Esterase (Negative) U Hyaline Cast (Auto) (0-2) /LPF Urine Microscopic RBC (0-5) /HPF Urine Microscopic WBC (0-5) /HPF Ur Epithelial Cells (None Seen) /HPF Urine Bacteria (None Seen) /HPF Urine Culture Reflexed (NO) Urine HCG, Qual (NEGATIVE) - Progress Progress: improved Progress Note: 33-year-old female presents to our ED with nausea vomiting abdominal pain. Patient has a history of pancreatitis. Patient advised that she drank alcohol yesterday. This likely triggered her pancreatitis. Physical exam shows epigastric tenderness. Lipase is normal however CT abdomen pelvis reveals inflammation in the pancreatic tail with associated free fluid. Patient pain improved but not resolved. Patient still very nauseous. Patient requesting admission due to the level of her pain and inability to tolerate p.o. Patient accepted by Dr. Elizalde at 3:38 PM. Plan of care discussed with patient. She agrees to admission [facility][1] for further evaluation and treatment. Complexity problem addressed is moderate acute complicated. No critical care time. Complexity to reviewed and analyzed is extensive. Management discussed with hospitalist accept admission to observation. Risk of complication and or risk of morbidity/mortality patient management is high. Patient requires hospitalization for further evaluation and treatment. Vital stable. Time spent admit patient approximately 20 minutes. Plan of care established for shared decision making. No social determinants of health present impede follow-up. Portions of this note were created with voice recognition technology. There may be grammatical, spelling, punctuation or sound alike errors 06/09/24 15:47 Counseled pt/family regarding: lab results, diagnosis, rad results - Departure Departure Disposition: Home Clinical Impression: Abdominal pain, Nausea and vomiting, Hypokalemia, Fatty liver, Pancreatitis Condition: Stable Critical Care Time: No Referrals: DOCTOR,NO FAMILY [Primary Care Provider] - Follow up/PCP as directed Additional Instructions: Discharge/Care Plan GOPAL RUIZ was seen on 06/09/24 in the Emergency Room. The patient was counseled regarding Diagnosis,Lab results, Imaging studies, need for follow up and when to return to the Emergency Room. Prescriptions given: Discharge Note I have spoken with the patient and/or caregivers. I have explained the patient's condition, diagnosis and treatment plan based on the information available to me at this time. I have answered the patient's and/or caregiver's questions and addressed any concerns. The patient and/or caregivers have as good understanding of the patient's diagnosis, condition and treatment plan as can be expected at this point. The vital signs have been stable. The patient's condition is stable and appropriate for discharge from the emergency department. The patient will pursue further outpatient evaluation with the primary care physician or other designated or consulting physician as outlined in the discharge instructions. The patient and/or caregivers are agreeable to this plan of care and follow-up instructions have been explained in detail. The patient and/or caregivers have received these instruction. The patient/and or caregivers are aware that any significant change in condition or worsening of symptoms should prompt an immediate return to this or the closest emergency department or call 911.
--- NOTE | 2024-06-09 15:03 | XRAY ---
Indication: Pain. Pancreatitis. Multiple contiguous axial images obtained through the abdomen and pelvis using 80 cc Isovue 370 contrast. Comparison: May 16, 2024 Lung bases remain clear. Heart not enlarged. Noncontrasted stomach and bowel loops appear nonobstructed with normal appendix. Again fatty liver and cholecystectomy. Tail of pancreas now demonstrates small focus of mild edema with minimal peripancreatic stranding favoring mild/early pancreatitis. Tiny free fluid but no walled off fluid collection or free air. Remaining spleen, general glands, kidneys, ureters, bladder, uterus, and aorta are normal in CT appearance and attenuation. No pathologic retroperitoneal lymphadenopathy. Osseous structures intact. Impression: 1. New small focus mild/early pancreatitis involving tail of pancreas with tiny free fluid. 2. Again incidental fatty liver. 3. Remaining CT abdomen/pelvis with contrast exam is negative.
[2024-06-09] MEDS: Klor Con PO ONE (15:29)
[2024-06-09] MEDS ORDERED: Klor Con ONE (15:29)
[2024-06-09] MEDS ORDERED: Hydromorphone 1 mg/ml Injection ONE (15:31)
[2024-06-09] MEDS: Hydromorphone 1 mg/ml Injection IV ONE (15:33)
[2024-06-09] MEDS: POTASSIUM CHLORIDE 20 mEq IN WATER 100ML 20 MEQ/100 ML BAG IV SCH (16:03)
[2024-06-09] MEDS: Magnesium 1 Gm / 100 Ml D5W*** 100 ML IV SCH (16:03)
--- NOTE | 2024-06-09 16:28 | PCM.HP ---
History of Present Illness - Chief Complaint Chief Complaint: epigastric pain, N/V Date: 06/09/24 History of Present Illness: is a 33 year old female with past medical history of cholecystectomy and pancreatitis presents to our ED for evaluation of epigastric pain that started yesterday. Patient states she is unable to tolerate oral intake and has been unable to do so since discharge from [facility]. Patient vomits with solids but able to tolerate liquids a little better. Patient's epigastric pain has been progressively worsening today. Pain described as an ache, no radiation. Patient reports that she no longer has her gallbladder. Physical exam reveals epigastric tenderness. Overlying soft tissue intact. No signs of trauma. Symptoms are moderate in intensity. Palpation reproduces pain. Pain improved somewhat with rest. Patient is nauseous as well. CT shows early pancreatitis. Pt made NPO and IVF started. She admits to drinking shots of alcohol yesterday. She states she is in a treatment program and has an upcoming appointment OP in [place] at [facility]. She wants to quit drinking she reports. Alcohol withdrawl protocol started. She denies any further concerns at this time. - Review of Systems Constitutional: No Fever, No Chills Eyes: No Symptoms Ears, Nose, & Throat: No Symptoms Respiratory: No Cough, No Short Of Breath Cardiac: No Chest Pain, No Edema, No Syncope Abdominal/Gastrointestinal: Abdominal Pain, Vomiting, Appetite Changes, No Diar opal Genitourinary Symptoms: No Dysuria Musculoskeletal: No Back Pain, No Neck Pain Skin: No Rash Neurological: No Dizziness, No Focal Weakness, No Sensory Changes Psychological: No Symptoms Endocrine: No Symptoms Hematologic/Lymphatic: No Symptoms Immunological/Allergic: No Symptoms Medications & Allergies Home Medications: Home Medication List No Reportable Medications [No Reported Medications] 06/09/24 [History Confirmed 06/09/24] Allergies/Adverse Reactions: Allergies Allergy/AdvReac Type Severity Reaction Status Date / Time No Known Drug Allergies Allergy Verified 06/09/24 13:33 - Past Medical History Past Medical History: Yes Neurological History: Migraines ENT History: No Pertinent History Cardiac History: No Pertinent History Respiratory History: No Pertinent History Endocrine Medical History: No Pertinent History Musculoskelatal History: No Pertinent History GI Medical History: No Pertinent History, Gallbladder Disease, Pancreatitis History: No Pertinent History Pyscho-Social History: Anxiety, Bipolar, Depression, Other Reproductive Disorders: No Pertinent History Comment: multiple personality disorder - Female History Hx Last Menstrual Period: last week Are you now?: No - Past Surgical History Past Surgical History: Yes Neuro Surgical History: No Pertinent History Cardiac History: No Pertinent History Respiratory Surgery: No Pertinent History GI Surgical History: Cholecystectomy Genitourinary Surgical Hx: No Pertinent History Musculskeletal Surgical Hx: No Pertinent History Female Surgical History: No Pertinent History Significant Family History: hypertension (father) - Social History Smoking Status: Light tobacco smoker How long have you smoked: years Exposure to second hand smoke: Yes Alcohol: Heavy Drug Use: none - Social Determinants of Health Will the patient participate in the screening: Declined to provide Do you worry about a steady place to live?: No In the past 12 months,have you had to go without utilities?: No Have you or anyone in your house had to go without enough: No Transportation Issues: No Has anyone in your support network made you feel unsafe?: No Does the patient want assistance with any of the above?: No - Physical Exam Vital Signs: Vital Signs - 24 hr Temp Pulse Resp BP BP Pulse Ox 06/09/24 16:01 151/108 99 06/09/24 15:48 99 06/09/24 15:32 179/124 97 06/09/24 15:00 98 H 156/111 100 06/09/24 14:40 99 H 132/106 99 06/09/24 14:39 95 06/09/24 14:00 105 H 134/104 97 06/09/24 13:34 98.3 F 115 H 20 137/106 137/106 99 General Appearance: no apparent distress, alert Neurologic Exam: alert, oriented x 3, cooperative, normal mood/affect, nml cerebellar function, nml station & gait, sensation nml, No motor deficits Eye Exam: PERRL/EOMI, eyes nml inspection Ears, Nose, Throat Exam: normal ENT inspection, TMs normal, pharynx normal, moist mucous membranes Neck Exam: normal inspection, non-tender, supple, full range of motion Respiratory Exam: normal breath sounds, lungs clear, No respiratory distress Cardiovascular Exam: regular rate/rhythm, normal heart sounds, normal peripheral pulses Gastrointestinal/Abdomen Exam: soft, normal bowel sounds, tenderness, No mass Back Exam: normal inspection, normal range of motion, No CVA tenderness, No vertebral tenderness Extremity Exam: normal inspection, normal range of motion, pelvis stable Skin Exam: normal color, warm, dry, No rash Lymphatic Exam: No adenopathy Results - Labs Lab/Micro Results: Lab Results-Last 24 Hours 06/09/24 06/09/24 06/09/24 Range/Units 13:40 13:40 13:40 WBC 8.2 (3.98-10.04) x10^3/uL RBC 4.60 (3.93-5.22) x10^6/uL Hgb 14.4 (11.2-15.7) g/dL Hct 42.2 (34.1-44.9) % MCV 91.7 (79.4-94.8) fL MCH 31.3 (25.6-32.2) pg MCHC 34.1 (32.2-35.5) g/dL RDW 12.1 (11.7-14.4) % Plt Count 500 H (182-369) x10^3/uL MPV 9.8 (9.4-12.3) fL Gran % 65.5 (34.0-71.1) % Immature Gran % (Auto) 0.5 H (0.001-0.429) % Nucleat RBC Rel Count 0.0 (0.00-0.2) % Eos # (Auto) 0.22 (0.04-0.36) x10^3/uL Immature Gran # (Auto) 0.04 H (0.001-0.031) x10^3u/L Absolute Lymphs (auto) 1.91 (1.18-3.74) x10^3/uL Absolute Monos (auto) 0.56 (0.24-0.86) x10^3/uL Absolute Nucleated RBC 0.00 (0.00-0.012) x10^3u/L Lymphocytes % 23.3 (19.3-51.7) % Monocytes % 6.8 (4.7-12.5) % Eosinophils % 2.7 (0.7-5.8) % Basophils % 1.2 (0.1-1.2) % Absolute Granulocytes 5.35 (1.56-6.13) x10^3/uL Basophils # 0.10 H (0.01-0.08) x10^3/uL Sodium 140 (135-145) mmol/L Potassium 3.2 L (3.5-5.1) mmol/L Chloride 102 (98-107) mmol/L Carbon Dioxide 24 (22-30) mmol/L Anion Gap 16.5 H (5-15) MEQ/L BUN 5 L (7-17) mg/dL Creatinine 0.52 (0.52-1.04) mg/dL Estimated GFR 125.0 ML/MIN Glucose 118 H (74-106) mg/dL Calcium 9.2 (8.4-10.2) mg/dL Total Bilirubin 0.70 (0.2-1.3) mg/dL AST 163 H (14-36) U/L ALT 99 H (0-35) U/L Alkaline Phosphatase 185 H (38-126) U/L Troponin I 0.013 (0.000-0.033) ng/mL Serum Total Protein 7.2 (6.3-8.2) g/dL Albumin 3.8 (3.5-5.0) g/dL Lipase 214 (23-300) U/L Urine Color (Yellow) Urine Appearance (Clear) Urine pH (4.6-8.0) Ur Specific [place] (1.005-1.030) Urine Protein (Negative) Urine Glucose (UA) (Negative) mg/dL Urine Ketones (Negative) Urine Blood (Negative) Urine Nitrite (Negative) Urine Bilirubin (Negative) Urine Urobilinogen (0.2) mg/dL Ur Leukocyte Esterase (Negative) U Hyaline Cast (Auto) (0-2) /LPF Urine Microscopic RBC (0-5) /HPF Urine Microscopic WBC (0-5) /HPF Ur Epithelial Cells (None Seen) /HPF Urine Bacteria (None Seen) /HPF Urine Culture Reflexed (NO) Urine HCG, Qual (NEGATIVE) 06/09/24 06/09/24 Range/Units 13:58 13:58 WBC (3.98-10.04) x10^3/uL RBC (3.93-5.22) x10^6/uL Hgb (11.2-15.7) g/dL Hct (34.1-44.9) % MCV (79.4-94.8) fL MCH (25.6-32.2) pg MCHC (32.2-35.5) g/dL RDW (11.7-14.4) % Plt Count (182-369) x10^3/uL MPV (9.4-12.3) fL Gran % (34.0-71.1) % Immature Gran % (Auto) (0.001-0.429) % Nucleat RBC Rel Count (0.00-0.2) % Eos # (Auto) (0.04-0.36) x10^3/uL Immature Gran # (Auto) (0.001-0.031) x10^3u/L Absolute Lymphs (auto) (1.18-3.74) x10^3/uL Absolute Monos (auto) (0.24-0.86) x10^3/uL Absolute Nucleated RBC (0.00-0.012) x10^3u/L Lymphocytes % (19.3-51.7) % Monocytes % (4.7-12.5) % Eosinophils % (0.7-5.8) % Basophils % (0.1-1.2) % Absolute Granulocytes (1.56-6.13) x10^3/uL Basophils # (0.01-0.08) x10^3/uL Sodium (135-145) mmol/L Potassium (3.5-5.1) mmol/L Chloride (98-107) mmol/L Carbon Dioxide (22-30) mmol/L Anion Gap (5-15) MEQ/L BUN (7-17) mg/dL Creatinine (0.52-1.04) mg/dL Estimated GFR ML/MIN Glucose (74-106) mg/dL Calcium (8.4-10.2) mg/dL Total Bilirubin (0.2-1.3) mg/dL AST (14-36) U/L ALT (0-35) U/L Alkaline Phosphatase (38-126) U/L Troponin I (0.000-0.033) ng/mL Serum Total Protein (6.3-8.2) g/dL Albumin (3.5-5.0) g/dL Lipase (23-300) U/L Urine Color Dark Yellow A (Yellow) Urine Appearance Clear (Clear) Urine pH 7.0 (4.6-8.0) Ur Specific [place] 1.025 (1.005-1.030) Urine Protein 30 (Negative) Urine Glucose (UA) Negative (Negative) mg/dL Urine Ketones Trace A (Negative) Urine Blood Negative (Negative) Urine Nitrite Negative (Negative) Urine Bilirubin Small A (Negative) Urine Urobilinogen 1.0 A (0.2) mg/dL Ur Leukocyte Esterase Small A (Negative) U Hyaline Cast (Auto) NONE SEEN (0-2) /LPF Urine Microscopic RBC 3-5 (0-5) /HPF Urine Microscopic WBC 3-5 (0-5) /HPF Ur Epithelial Cells Moderate A (None Seen) /HPF Urine Bacteria Few A (None Seen) /HPF Urine Culture Reflexed YES (NO) Urine HCG, Qual NEGATIVE (NEGATIVE) - Radiology Impressions Radiology Exams & Impressions: Radiology Procedures Category Date Time Status ABDOMEN AND PELVIS W CONTRAST [CT] Stat Exams 06/09/24 13:38 Completed Assessment/Plan (1) Pancreatitis Current Visit: Yes Status: Acute Assessment & Plan: - as seen on CT Abd/pelvis - Tele- ICU d/t known hx of complications-with last visit needing higher level of care - NPO - IVF- LR @ 250ml.hr - narcotic pain meds - Protonix - Zofran - A1C - lipid panel - UDS with alcohol level - Pt has a hx of alchol abuse and last drank last night - [facility] protocol - Q2hr I&O - Consider transfer to higher level of care for GO consult as she has has repeated admissions for pancreatitis. Code(s): K85.90 - ACUTE PANCREATITIS WITHOUT NECROSIS OR INFECTION, UNSP (2) Alcohol abuse Current Visit: Yes Status: Acute Assessment & Plan: - Pt admits to last drinking last night, she reports drinking much less since last admission and trying to quit. - She is currently in an OP treatment program and has an upcoming appointment with [facility] in [place], [place]. - UDS with alcohol level - [facility] protocol - Discussed buttermaker helper outcomes of alcohol use. Code(s): F10.10 - ALCOHOL ABUSE, UNCOMPLICATED (3) Abdominal pain Current Visit: Yes Status: Acute Assessment & Plan: - 2:2 pancreatitis as seen on CT - CT abd/pelvis: Impression: 1. New small focus mild/early pancreatitis involving tail of pancreas with tiny free fluid. 2. Again incidental fatty liver. 3. Remaining CT abdomen/pelvis with contrast exam is negative. - See above plan for pancreatitis Code(s): R10.9 - UNSPECIFIED ABDOMINAL PAIN (4) Nausea & vomiting Current Visit: Yes Status: Acute Assessment & Plan: - antiemetics - IVF - Protonix Code(s): R11.2 - NAUSEA WITH VOMITING, UNSPECIFIED (5) Tachycardia Current Visit: No Status: Acute Assessment & Plan: - Improved with IVF in ER - Tele Code(s): R00.0 - TACHYCARDIA, UNSPECIFIED (6) Hypokalemia Current Visit: Yes Status: Acute Assessment & Plan: - K+ 3.2 replaced in the ER- trend Code(s): E87.6 - HYPOKALEMIA (7) Dehydration Current Visit: Yes Status: Acute Assessment & Plan: - IVF - anion gap 16.5 VTE: Lovenox PPI: Protonix Next of KIN: Spouse- Eric Sanders [phone] D/C plan: 2-3 days Code status: Full Code(s): E86.0 - DEHYDRATION Telemedicine Encounter - Telemedicine Encounter Telemedicine Encounter: "The entirety of this encounter was performed via Telemedicine" This visit was performed using real-time audio and video connection between my location and thepatients locationwith the assistance of a surrogateat the patients location. Written or verbal consent was obtained from the patient/guardian to perform this visit using[facility] techno logy. Any patient questions regarding the telemedicine interaction were answered.
[2024-06-09 16:40] LABS: Amphetamine,Urine NEGATIVE (NEGATIVE); Barbiturate,Urine NEGATIVE (NEGATIVE); Benzodiazepine,Urine POSITIVE (NEGATIVE); Cocaine,Urine NEGATIVE (NEGATIVE); Methadone,Urine NEGATIVE (NEGATIVE); Opiate,Urine POSITIVE (NEGATIVE); PCP,Urine NEGATIVE (NEGATIVE); THC,Urine NEGATIVE (NEGATIVE)
[2024-06-09] MEDS: PROTONIX 40 MG IV IV SCH (17:14)
[2024-06-09] MEDS: Lactated Ringers 1,000 ML IV SCH (17:17)
[2024-06-09 18:23] LABS: Cholesterol 133 mg/dL (50-200); ETHYL ALCOHOL < 10 mg/dL (0-10); HDL CHOLESTEROL 41 mg/dL (40-60); LDL, DIRECT 57 mg/dL (30-100); MAGNESIUM 3.2 mg/dL (1.6-2.3); TRIGLYCERIDE 204 mg/dL (30-150); TROPONIN < 0.012 ng/mL (0.000-0.033)
[2024-06-09] MEDS: APRESOLINE 20 MG/ML INJ IV PRN (18:27)
[2024-06-09] MEDS: Hydromorphone 1 mg/ml Injection IV PRN (19:01)
[2024-06-09] MEDS: Zofran 4 MG/2 ML VIAL IV PRN (20:45)
[2024-06-09] MEDS: VALIUM 10 MG/2 ML SYRINGE IV PRN (23:04)
[2024-06-10] MEDS ORDERED: Sodium Chloride 0.9% 100 ML ONE (02:41)
[2024-06-10] MEDS ORDERED: Phenergan 25 MG INJ ONE (02:41)
[2024-06-10] MEDS: Phenergan 25 MG INJ*** 12.5 MG in Sodium Chloride 0.9% 100 ML IV PRN (02:48)
[2024-06-10 05:00] LABS: Absolute Neutrophil Ct (ANC) 10.24 x10^3/uL (1.56-6.13); BASOPHIL % 0.6 % (0.1-1.2); Basophil (Absolute #) 0.07 x10^3/uL (0.01-0.08); Eosinophil % 0.3 % (0.7-5.8); Eosinophil (Absolute #) 0.04 x10^3/uL (0.04-0.36); Hematocrit 40.4 % (34.1-44.9); IMMATURE GRAN # 0.04 x10^3u/L (0.001-0.031); IMMATURE GRAN % 0.3 % (0.001-0.429); Lymphocyte (Absolute #) 1.29 x10^3/uL (1.18-3.74); Lymphocytes % 10.6 % (19.3-51.7); Mean Cell Volume 95.1 fL (79.4-94.8); Mean Corpuscular Hemoglobin 30.6 pg (25.6-32.2); Mean Corpuscular Hgb Concent. 32.2 g/dL (32.2-35.5); Mean Platelet Volume 10.5 fL (9.4-12.3); Monocyte (Absolute #) 0.47 x10^3/uL (0.24-0.86); Monocytes % 3.9 % (4.7-12.5); Neutrophil % 84.3 % (34.0-71.1); Platelet Count 456 x10^3/uL (182-369); Red Blood Count 4.25 x10^6/uL (3.93-5.22); Red Cell Distribution Width 12.5 % (11.7-14.4); White Blood Count 12.2 x10^3/uL (3.98-10.04)
[2024-06-10 05:18] LABS: ALBUMIN 3.5 g/dL (3.5-5.0); ANION GAP 11.4 MEQ/L (5-15); Calcium 8.6 mg/dL (8.4-10.2); Creatinine 1 0.49 mg/dL (0.52-1.04); EST GLOMERULAR FILTRATION RATE 126.8 ML/MIN; Total Protein 6.5 g/dL (6.3-8.2)
[2024-06-10] MEDS: VITAMIN B-1 100 MG PO SCH (09:14)
[2024-06-10] MEDS: ENOXAPARIN SODIUM SQ SCH (09:14)
[2024-06-10] MEDS: FOLATE 1 MG PO SCH (09:14)
[2024-06-10] MEDS: THERAGRAN MULTIVITAMIN PO SCH (09:14)
--- NOTE | 2024-06-10 10:11 | PCM.NOTE ---
Date and Time: 06/10/24 1006 Subjective Assessment: 06/09/24 is a 33 year old female with past medical history of cholecystectomy and pancreatitis presents to our ED for evaluation of epigastric pain that started yesterday. Patient states she is unable to tolerate oral intake and has been unable to do so since discharge from [facility]. Patient vomits with solids but able to tolerate liquids a little better. Patient's epigastric pain has been progressively worsening today. Pain described as an ache, no radiation. Patient reports that she no longer has her gallbladder. Physical exam reveals epigastric tenderness. Overlying soft tissue intact. No signs of trauma. Symptoms are moderate in intensity. Palpation reproduces pain. Pain improved somewhat with rest. Patient is nauseous as well. CT shows early pancreatitis. Pt made NPO and IVF started. She admits to drinking shots of alcohol yesterday. She states she is in a treatment program and has an upcoming appointment OP in [place] at [facility]. She wants to quit drinking she reports. Alcohol withdrawl protocol started. She denies any further concerns at this ti hi. 06/10/24 Pt resting in bed. HR in 130's this AM. She continues to require ICU bed d/t sxs. She reports abd. pain and tightness. Will start PPN today and nutrition consulted. Pt reports H/A's with not eating and had a severe H/A last night. It has resolved this AM. Today she is shaky and not feeling well. She denies CP, SOB, N/V/D. - Review of Systems Constitutional: No Fever, No Chills Eyes: No Symptoms Ears, Nose, & Throat: No Symptoms Respiratory: No Cough, No Short Of Breath Cardiac: No Chest Pain, No Edema, No Syncope Abdominal/Gastrointestinal: Abdominal Pain, No Nausea, No Vomiting, No Diarrhea Genitourinary Symptoms: No Dysuria Musculoskeletal: No Back Pain, No Neck Pain Skin: No Rash Neurological: Headache, Tremors, No Dizziness, No Focal Weakness, No Sensory Changes Psychological: No Symptoms Endocrine: No Symptoms Hematologic/Lymphatic: No Symptoms Immunological/Allergic: No Symptoms Objective Exam General Appearance: no apparent distress, alert Neurologic Exam: alert, oriented x 3, cooperative, normal mood/affect, nml cerebellar function, sensation nml, No motor deficits Skin Exam: normal color, warm, dry Eye Exam: PERRL, EOMI, eyes nml inspection Ears, Nose, Throat Exam: normal ENT inspection, pharynx normal, moist mucous membranes Neck Exam: normal inspection, non-tender, supple, full range of motion Respiratory Exam: normal breath sounds, lungs clear, No respiratory distress Cardiovascular Exam: regular rate/rhythm, normal heart sounds, tachycardia Gastrointestinal/Abdomen Exam: soft, tenderness (LUQ, RUQ), No mass Extremity Exam: normal inspection, normal range of motion Back Exam: normal inspection, normal range of motion, No CVA tenderness, No vertebral tenderness Pelvic Exam: deferred Rectal Exam: deferred Objective Data Vital Signs: Vital Signs - 24 hr Temp Pulse Resp BP BP Pulse Ox 06/10/24 09:00 115 H 15 133/90 97 06/10/24 08:00 107 H 17 110/80 98 06/10/24 07:00 135 H 18 120/98 98 06/10/24 06:00 125 H 16 129/91 06/10/24 05:00 145 H 17 117/77 97 06/10/24 04:21 113 H 19 126/109 06/10/24 04:01 97.8 F 136 H 17 126/109 96 06/10/24 04:00 136 H 06/10/24 03:00 108 H 14 125/103 99 06/10/24 02:00 116 H 14 137/96 98 06/10/24 01:00 132 H 16 127/89 95 06/10/24 00:01 115 H 06/10/24 00:00 173 H 32 H 133/92 96 06/09/24 23:50 127 H 20 136/96 99 06/09/24 23:04 100 H 15 137/104 06/09/24 23:00 140 H 15 137/104 99 06/09/24 22:00 105 H 19 125/95 94 L 06/09/24 21:00 97 H 19 124/93 97 06/09/24 20:00 97.8 F 111 H 16 122/88 98 06/09/24 19:14 99 06/09/24 19:00 128 H 18 126/88 96 06/09/24 18:12 108 H 13 139/101 98 06/09/24 17:22 98.7 F 84 14 130/103 99 06/09/24 17:00 106 H 19 145/119 98 06/09/24 16:01 151/108 99 06/09/24 15:48 99 06/09/24 15:32 179/124 97 06/09/24 15:00 98 H 156/111 100 06/09/24 14:40 99 H 132/106 99 06/09/24 14:39 95 06/09/24 14:00 105 H 134/104 97 06/09/24 13:34 98.3 F 115 H 20 137/106 137/106 99 Pain Assessment - Last Documented Pain Intensity 5 Pain Scale Used 0-10 Pain Scale Intake and Output: Intake & Output 06/07/24 06/08/24 06/09/24 06/10/24 11:59 11:59 11:59 11:59 Intake Total 3630 Output Total 750 Balance 2880 Weight 56.4 kg Lab Results: Lab Results-Last 24 Hours 06/09/24 06/09/24 06/09/24 Range/Units 13:38 13:40 13:40 WBC 8.2 (3.98-10.04) x10^3/uL RBC 4.60 (3.93-5.22) x10^6/uL Hgb 14.4 (11.2-15.7) g/dL Hct 42.2 (34.1-44.9) % MCV 91.7 (79.4-94.8) fL MCH 31.3 (25.6-32.2) pg MCHC 34.1 (32.2-35.5) g/dL RDW 12.1 (11.7-14.4) % Plt Count 500 H (182-369) x10^3/uL MPV 9.8 (9.4-12.3) fL Gran % 65.5 (34.0-71.1) % Immature Gran % (Auto) 0.5 H (0.001-0.429) % Nucleat RBC Rel Count 0.0 (0.00-0.2) % Eos # (Auto) 0.22 (0.04-0.36) x10^3/uL Immature Gran # (Auto) 0.04 H (0.001-0.031) x10^3u/L Absolute Lymphs (auto) 1.91 (1.18-3.74) x10^3/uL Absolute Monos (auto) 0.56 (0.24-0.86) x10^3/uL Absolute Nucleated RBC 0.00 (0.00-0.012) x10^3u/L Lymphocytes % 23.3 (19.3-51.7) % Monocytes % 6.8 (4.7-12.5) % Eosinophils % 2.7 (0.7-5.8) % Basophils % 1.2 (0.1-1.2) % Absolute Granulocytes 5.35 (1.56-6.13) x10^3/uL Basophils # 0.10 H (0.01-0.08) x10^3/uL Sodium 140 (135-145) mmol/L Potassium 3.2 L (3.5-5.1) mmol/L Chloride 102 (98-107) mmol/L Carbon Dioxide 24 (22-30) mmol/L Anion Gap 16.5 H (5-15) MEQ/L BUN 5 L (7-17) mg/dL Creatinine 0.52 (0.52-1.04) mg/dL Estimated GFR 125.0 ML/MIN Glucose 118 H (74-106) mg/dL Hemoglobin A1c (4.5-6.0) % Calcium 9.2 (8.4-10.2) mg/dL Magnesium (1.6-2.3) mg/dL Total Bilirubin 0.70 (0.2-1.3) mg/dL AST 163 H (14-36) U/L ALT 99 H (0-35) U/L Alkaline Phosphatase 185 H (38-126) U/L Troponin I (0.000-0.033) ng/mL Serum Total Protein 7.2 (6.3-8.2) g/dL Albumin 3.8 (3.5-5.0) g/dL Triglycerides (30-150) mg/dL Cholesterol (50-200) mg/dL LDL Cholesterol (30-100) mg/dL HDL Cholesterol (40-60) mg/dL Heart Disease Risk Ratio Lipase 214 (23-300) U/L Urine Color (Yellow) Urine Appearance (Clear) Urine pH (4.6-8.0) Ur Specific [place] (1.005-1.030) Urine Protein (Negative) Urine Glucose (UA) (Negative) mg/dL Urine Ketones (Negative) Urine Blood (Negative) Urine Nitrite (Negative) Urine Bilirubin (Negative) Urine Urobilinogen (0.2) mg/dL Ur Leukocyte Esterase (Negative) U Hyaline Cast (Auto) (0-2) /LPF Urine Microscopic RBC (0-5) /HPF Urine Microscopic WBC (0-5) /HPF Ur Epithelial Cells (None Seen) /HPF Urine Bacteria (None Seen) /HPF Urine Culture Reflexed (NO) Urine HCG, Qual (NEGATIVE) Urine Opiates Level POSITIVE A (NEGATIVE) Ur Methadone NEGATIVE (NEGATIVE) Urine Barbiturates NEGATIVE (NEGATIVE) Ur Phencyclidine (PCP) NEGATIVE (NEGATIVE) Urine Amphetamine NEGATIVE (NEGATIVE) U Benzodiazepine Level POSITIVE A (NEGATIVE) Urine Cocaine NEGATIVE (NEGATIVE) Urine Marijuana (THC) NEGATIVE (NEGATIVE) Ethyl Alcohol (0-10) mg/dL 06/09/24 06/09/24 06/09/24 Range/Units 13:40 13:40 13:58 WBC (3.98-10.04) x10^3/uL RBC (3.93-5.22) x10^6/uL Hgb (11.2-15.7) g/dL Hct (34.1-44.9) % MCV (79.4-94.8) fL MCH (25.6-32.2) pg MCHC (32.2-35.5) g/dL RDW (11.7-14.4) % Plt Count (182-369) x10^3/uL MPV (9.4-12.3) fL Gran % (34.0-71.1) % Immature Gran % (Auto) (0.001-0.429) % Nucleat RBC Rel Count (0.00-0.2) % Eos # (Auto) (0.04-0.36) x10^3/uL Immature Gran # (Auto) (0.001-0.031) x10^3u/L Absolute Lymphs (auto) (1.18-3.74) x10^3/uL Absolute Monos (auto) (0.24-0.86) x10^3/uL Absolute Nucleated RBC (0.00-0.012) x10^3u/L Lymphocytes % (19.3-51.7) % Monocytes % (4.7-12.5) % Eosinophils % (0.7-5.8) % Basophils % (0.1-1.2) % Absolute Granulocytes (1.56-6.13) x10^3/uL Basophils # (0.01-0.08) x10^3/uL Sodium (135-145) mmol/L Potassium (3.5-5.1) mmol/L Chloride (98-107) mmol/L Carbon Dioxide (22-30) mmol/L Anion Gap (5-15) MEQ/L BUN (7-17) mg/dL Creatinine (0.52-1.04) mg/dL Estimated GFR ML/MIN Glucose (74-106) mg/dL Hemoglobin A1c 5.14 (4.5-6.0) % Calcium (8.4-10.2) mg/dL Magnesium (1.6-2.3) mg/dL Total Bilirubin (0.2-1.3) mg/dL AST (14-36) U/L ALT (0-35) U/L Alkaline Phosphatase (38-126) U/L Troponin I 0.013 (0.000-0.033) ng/mL Serum Total Protein (6.3-8.2) g/dL Albumin (3.5-5.0) g/dL Triglycerides (30-150) mg/dL Cholesterol (50-200) mg/dL LDL Cholesterol (30-100) mg/dL HDL Cholesterol (40-60) mg/dL Heart Disease Risk Ratio Lipase (23-300) U/L Urine Color Dark Yellow A (Yellow) Urine Appearance Clear (Clear) Urine pH 7.0 (4.6-8.0) Ur Specific [place] 1.025 (1.005-1.030) Urine Protein 30 (Negative) Urine Glucose (UA) Negative (Negative) mg/dL Urine Ketones Trace A (Negative) Urine Blood Negative (Negative) Urine Nitrite Negative (Negative) Urine Bilirubin Small A (Negative) Urine Urobilinogen 1.0 A (0.2) mg/dL Ur Leukocyte Esterase Small A (Negative) U Hyaline Cast (Auto) NONE SEEN (0-2) /LPF Urine Microscopic RBC 3-5 (0-5) /HPF Urine Microscopic WBC 3-5 (0-5) /HPF Ur Epithelial Cells Moderate A (None Seen) /HPF Urine Bacteria Few A (None Seen) /HPF Urine Culture Reflexed YES (NO) Urine HCG, Qual (NEGATIVE) Urine Opiates Level (NEGATIVE) Ur Methadone (NEGATIVE) Urine Barbiturates (NEGATIVE) Ur Phencyclidine (PCP) (NEGATIVE) Urine Amphetamine (NEGATIVE) U Benzodiazepine Level (NEGATIVE) Urine Cocaine (NEGATIVE) Urine Marijuana (THC) (NEGATIVE) Ethyl Alcohol (0-10) mg/dL 06/09/24 06/09/24 06/09/24 Range/Units 13:58 17:50 23:40 WBC (3.98-10.04) x10^3/uL RBC (3.93-5.22) x10^6/uL Hgb (11.2-15.7) g/dL Hct (34.1-44.9) % MCV (79.4-94.8) fL MCH (25.6-32.2) pg MCHC (32.2-35.5) g/dL RDW (11.7-14.4) % Plt Count (182-369) x10^3/uL MPV (9.4-12.3) fL Gran % (34.0-71.1) % Immature Gran % (Auto) (0.001-0.429) % Nucleat RBC Rel Count (0.00-0.2) % Eos # (Auto) (0.04-0.36) x10^3/uL Immature Gran # (Auto) (0.001-0.031) x10^3u/L Absolute Lymphs (auto) (1.18-3.74) x10^3/uL Absolute Monos (auto) (0.24-0.86) x10^3/uL Absolute Nucleated RBC (0.00-0.012) x10^3u/L Lymphocytes % (19.3-51.7) % Monocytes % (4.7-12.5) % Eosinophils % (0.7-5.8) % Basophils % (0.1-1.2) % Absolute Granulocytes (1.56-6.13) x10^3/uL Basophils # (0.01-0.08) x10^3/uL Sodium (135-145) mmol/L Potassium (3.5-5.1) mmol/L Chloride (98-107) mmol/L Carbon Dioxide (22-30) mmol/L Anion Gap (5-15) MEQ/L BUN (7-17) mg/dL Creatinine (0.52-1.04) mg/dL Estimated GFR ML/MIN Glucose (74-106) mg/dL Hemoglobin A1c (4.5-6.0) % Calcium (8.4-10.2) mg/dL Magnesium 3.2 H (1.6-2.3) mg/dL Total Bilirubin (0.2-1.3) mg/dL AST (14-36) U/L ALT (0-35) U/L Alkaline Phosphatase (38-126) U/L Troponin I < 0.012 0.018 (0.000-0.033) ng/mL Serum Total Protein (6.3-8.2) g/dL Albumin (3.5-5.0) g/dL Triglycerides 204 H (30-150) mg/dL Cholesterol 133 (50-200) mg/dL LDL Cholesterol 57 (30-100) mg/dL HDL Cholesterol 41 (40-60) mg/dL Heart Disease Risk Ratio 3.0 Lipase (23-300) U/L Urine Color (Yellow) Urine Appearance (Clear) Urine pH (4.6-8.0) Ur Specific [place] (1.005-1.030) Urine Protein (Negative) Urine Glucose (UA) (Negative) mg/dL Urine Ketones (Negative) Urine Blood (Negative) Urine Nitrite (Negative) Urine Bilirubin (Negative) Urine Urobilinogen (0.2) mg/dL Ur Leukocyte Esterase (Negative) U Hyaline Cast (Auto) (0-2) /LPF Urine Microscopic RBC (0-5) /HPF Urine Microscopic WBC (0-5) /HPF Ur Epithelial Cells (None Seen) /HPF Urine Bacteria (None Seen) /HPF Urine Culture Reflexed (NO) Urine HCG, Qual NEGATIVE (NEGATIVE) Urine Opiates Level (NEGATIVE) Ur Methadone (NEGATIVE) Urine Barbiturates (NEGATIVE) Ur Phencyclidine (PCP) (NEGATIVE) Urine Amphetamine (NEGATIVE) U Benzodiazepine Level (NEGATIVE) Urine Cocaine (NEGATIVE) Urine Marijuana (THC) (NEGATIVE) Ethyl Alcohol < 10 (0-10) mg/dL 06/09/24 06/10/24 06/10/24 Range/Units 23:40 04:45 04:45 WBC 12.2 H (3.98-10.04) x10^3/uL RBC 4.25 (3.93-5.22) x10^6/uL Hgb 13.0 (11.2-15.7) g/dL Hct 40.4 (34.1-44.9) % MCV 95.1 H (79.4-94.8) fL MCH 30.6 (25.6-32.2) pg MCHC 32.2 (32.2-35.5) g/dL RDW 12.5 (11.7-14.4) % Plt Count 456 H (182-369) x10^3/uL MPV 10.5 (9.4-12.3) fL Gran % 84.3 H (34.0-71.1) % Immature Gran % (Auto) 0.3 (0.001-0.429) % Nucleat RBC Rel Count 0.0 (0.00-0.2) % Eos # (Auto) 0.04 (0.04-0.36) x10^3/uL Immature Gran # (Auto) 0.04 H (0.001-0.031) x10^3u/L Absolute Lymphs (auto) 1.29 (1.18-3.74) x10^3/uL Absolute Monos (auto) 0.47 (0.24-0.86) x10^3/uL Absolute Nucleated RBC 0.00 (0.00-0.012) x10^3u/L Lymphocytes % 10.6 L (19.3-51.7) % Monocytes % 3.9 L (4.7-12.5) % Eosinophils % 0.3 L (0.7-5.8) % Basophils % 0.6 (0.1-1.2) % Absolute Granulocytes 10.24 H (1.56-6.13) x10^3/uL Basophils # 0.07 (0.01-0.08) x10^3/uL Sodium 136 (135-145) mmol/L Potassium 3.8 4.0 (3.5-5.1) mmol/L Chloride 103 (98-107) mmol/L Carbon Dioxide 25 (22-30) mmol/L Anion Gap 11.4 (5-15) MEQ/L BUN 5 L (7-17) mg/dL Creatinine 0.49 L (0.52-1.04) mg/dL Estimated GFR 126.8 ML/MIN Glucose 117 H (74-106) mg/dL Hemoglobin A1c (4.5-6.0) % Calcium 8.6 (8.4-10.2) mg/dL Magnesium 2.0 (1.6-2.3) mg/dL Total Bilirubin 1.00 (0.2-1.3) mg/dL AST 117 H (14-36) U/L ALT 81 H (0-35) U/L Alkaline Phosphatase 196 H (38-126) U/L Troponin I (0.000-0.033) ng/mL Serum Total Protein 6.5 (6.3-8.2) g/dL Albumin 3.5 (3.5-5.0) g/dL Triglycerides (30-150) mg/dL Cholesterol (50-200) mg/dL LDL Cholesterol (30-100) mg/dL HDL Cholesterol (40-60) mg/dL Heart Disease Risk Ratio Lipase 147 (23-300) U/L Urine Color (Yellow) Urine Appearance (Clear) Urine pH (4.6-8.0) Ur Specific [place] (1.005-1.030) Urine Protein (Negative) Urine Glucose (UA) (Negative) mg/dL Urine Ketones (Negative) Urine Blood (Negative) Urine Nitrite (Negative) Urine Bilirubin (Negative) Urine Urobilinogen (0.2) mg/dL Ur Leukocyte Esterase (Negative) U Hyaline Cast (Auto) (0-2) /LPF Urine Microscopic RBC (0-5) /HPF Urine Microscopic WBC (0-5) /HPF Ur Epithelial Cells (None Seen) /HPF Urine Bacteria (None Seen) /HPF Urine Culture Reflexed (NO) Urine HCG, Qual (NEGATIVE) Urine Opiates Level (NEGATIVE) Ur Methadone (NEGATIVE) Urine Barbiturates (NEGATIVE) Ur Phencyclidine (PCP) (NEGATIVE) Urine Amphetamine (NEGATIVE) U Benzodiazepine Level (NEGATIVE) Urine Cocaine (NEGATIVE) Urine Marijuana (THC) (NEGATIVE) Ethyl Alcohol (0-10) mg/dL Radiology Exams: Radiology Procedures Category Date Time Status ABDOMEN AND PELVIS W CONTRAST [CT] Stat Exams 06/09/24 13:38 Completed Assessment/Plan (1) Pancreatitis Current Visit: Yes Status: Acute Code(s): K85.90 - ACUTE PANCREATITIS WITHOUT NECROSIS OR INFECTION, UNSP (2) Alcohol abuse Current Visit: Yes Status: Acute Code(s): F10.10 - ALCOHOL ABUSE, UNCOMPLICATED (3) Abdominal pain Current Visit: Yes Status: Acute Code(s): R10.9 - UNSPECIFIED ABDOMINAL PAIN (4) Nausea & vomiting Current Visit: Yes Status: Acute Code(s): R11.2 - NAUSEA WITH VOMITING, UNSPECIFIED (5) Tachycardia Current Visit: No Status: Acute Code(s): R00.0 - TACHYCARDIA, UNSPECIFIED (6) Hypokalemia Current Visit: Yes Status: Acute Code(s): E87.6 - HYPOKALEMIA (7) Dehydration Current Visit: Yes Status: Acute Assessment & Plan: (1) Pancreatitis Current Visit: Yes Status: Acute Assessment & Plan: - as seen on CT Abd/pelvis - Tele- ICU d/t known hx of complications-with last visit needing higher level of care - NPO - IVF- LR @ 250ml.hr - narcotic pain meds - Protonix - Zofran - A1C - lipid panel - UDS with alcohol level - Pt has a hx of alchol abuse and last drank last night - CIWA protocol - Q2hr I&O - Consider transfer to higher level of care for GI consult as she has has repeated admissions for pancreatitis. 06/10 - Lipase 147 - Nutrition consult PPN - NPO except PO meds - + abd pain Code(s): K85.90 - ACUTE PANCREATITIS WITHOUT NECROSIS OR INFECTION, UNSP (2) Alcohol abuse Current Visit: Yes Status: Acute Assessment & Plan: - Pt admits to last drinking last night, she reports drinking much less since last admission and trying to quit. - She is currently in an OP treatment program and has an upcoming appointment with [facility] in [place], [place]. 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 Code(s): F10.10 - ALCOHOL ABUSE, UNCOMPLICATED (3) Abdominal pain Current Visit: Yes Status: Acute Assessment & Plan: - 2:2 pancreatitis as seen on CT - CT abd/pelvis: Impression: 1. New small focus mild/early pancreatitis involving tail of pancreas with tiny free fluid. 2. Again incidental fatty liver. 3. Remaining CT abdomen/pelvis with contrast exam is negative. - See above plan for pancreatitis Code(s): R10.9 - UNSPECIFIED ABDOMINAL PAIN (4) Nausea & vomiting Current Visit: Yes Status: Acute Assessment & Plan: - antiemetics - IVF - Protonix Code(s): R11.2 - NAUSEA WITH VOMITING, UNSPECIFIED (5) Tachycardia Current Visit: No Status: Acute Assessment & Plan: - Improved with IVF in ER - Tele 06/10 - HR 130'2 this am 2;2 ETOH withdrawl- decreased HR in 100's with valium Code(s): R00.0 - TACHYCARDIA, UNSPECIFIED (6) Hypokalemia Current Visit: Yes Status: Acute Assessment & Plan: - K+ 3.2 replaced in the ER- trend- repeat 3.8 06/10 - resolved Code(s): E87.6 - HYPOKALEMIA (7) Dehydration Current Visit: Yes Status: Acute Assessment & Plan: - IVF - anion gap 16.5 06/10 - Resolved VTE: Lovenox PPI: Protonix Next of KIN: Spouse- Eric Sanders [phone] D/C plan: 2-3 days Code status: Full Code(s): E86.0 - DEHYDRATION Code(s): E86.0 - DEHYDRATION
[2024-06-10] MEDS: PHARMACY DOSING REQUEST MC ONE (10:44)
[2024-06-10] MEDS: Coreg 3.125 MG PO SCH (11:14)
[2024-06-10] MEDS: TYLENOL 325 MG PO PRN (12:27)
[2024-06-10] MEDS ORDERED: PERIKABIVEN PERIPH TPN 1,920 ML with Vitamins For Infusion 10 ML INJECTION*** 10 ML, TR... IV SCH (14:00)
[2024-06-10] MEDS: PERIKABIVEN PERIPH TPN 1,920 ML with Vitamins For Infusion 10 ML INJECTION*** 10 ML, TR... IV SCH (14:34)
[2024-06-10] MEDS: Lactated Ringers 1,000 ML IV SCH (14:44)
[2024-06-11 04:55] LABS: Hematocrit 37.6 % (34.1-44.9); Hemoglobin 12.1 g/dL (11.2-15.7); Mean Cell Volume 96.4 fL (79.4-94.8); Mean Corpuscular Hgb Concent. 32.2 g/dL (32.2-35.5); Mean Platelet Volume 10.1 fL (9.4-12.3); Platelet Count 340 x10^3/uL (182-369); Red Cell Distribution Width 12.4 % (11.7-14.4); White Blood Count 6.8 x10^3/uL (3.98-10.04)
[2024-06-11 08:15] LABS: ALBUMIN 3.2 g/dL (3.5-5.0); ANION GAP 9.3 MEQ/L (5-15); BILIRUBIN,TOTAL 0.7 mg/dL (0.2-1.3); Calcium 8.6 mg/dL (8.4-10.2); Creatinine 1 0.63 mg/dL (0.52-1.04); EST GLOMERULAR FILTRATION RATE 119.3 ML/MIN; Total Protein 6.1 g/dL (6.3-8.2)
--- NOTE | 2024-06-11 11:30 | PCM.NOTE ---
Date and Time: 06/11/24 1125 Subjective Assessment: 06/09/24 is a 33 year old female with past medical history of cholecystectomy and pancreatitis presents to our ED for evaluation of epigastric pain that started yesterday. Patient states she is unable to tolerate oral intake and has been unable to do so since discharge from [facility]. Patient vomits with solids but able to tolerate liquids a little better. Patient's epigastric pain has been progressively worsening today. Pain described as an ache, no radiation. Patient reports that she no longer has her gallbladder. Physical exam reveals epigastric tenderness. Overlying soft tissue intact. No signs of trauma. Symptoms are moderate in intensity. Palpation reproduces pain. Pain improved somewhat with rest. Patient is nauseous as well. CT shows early pancreatitis. Pt made NPO and IVF started. She admits to drinking shots of alcohol yesterday. She states she is in a treatment program and has an upcoming appointment OP in [place] at [facility]. She wants to quit drinking she reports. Alcohol withdrawl protocol started. She denies any further concerns at this ti me. 06/10/24 Pt resting in bed. HR in 130's this AM. She continues to require ICU bed d/t sxs. She reports abd. pain and tightness. Will start PPN today and nutrition consulted. Pt reports H/A's with not eating and had a severe H/A last night. It has resolved this AM. Today she is shaky and not feeling well. She denies CP, SOB, N/V/D. 06/11/24 Pt resting in bed. Abd. pain has improved and now localized to LUQ. She is requesting to start a clear liquid diet today. If she is able to tolerate will d/c PPN and IVF. Will change IV Protonix to PO. Will tx pt out of ICU today as she is doing better and HR under control with Coreg added yesterday. Liver enzymes improved. Lipase 199- improved. May possibly d/c tomorrow if doing better. She denies CP, SOB, V/D. - Review of Systems Constitutional: No Fever, No Chills Eyes: No Symptoms Ears, Nose, & Throat: No Symptoms Respiratory: No Cough, No Short Of Breath Cardiac: No Chest Pain, No Edema, No Syncope Abdominal/Gastrointestinal: Abdominal Pain (LUQ), Nausea, No Vomiting, No Di arrhea Genitourinary Symptoms: No Dysuria Musculoskeletal: No Back Pain, No Neck Pain Skin: No Rash Neurological: No Dizziness, No Focal Weakness, No Sensory Changes Psychological: No Symptoms Endocrine: No Symptoms Hematologic/Lymphatic: No Symptoms Immunological/Allergic: No Symptoms Objective Exam General Appearance: no apparent distress, alert Neurologic Exam: alert, oriented x 3, cooperative, normal mood/affect, nml cerebellar function, sensation nml, No motor deficits Skin Exam: normal color, warm, dry Eye Exam: PERRL, EOMI, eyes nml inspection Ears, Nose, Throat Exam: normal ENT inspection, pharynx normal, moist mucous membranes Neck Exam: normal inspection, non-tender, supple, full range of motion Respiratory Exam: normal breath sounds, lungs clear, No respiratory distress Cardiovascular Exam: regular rate/rhythm, normal heart sounds Gastrointestinal/Abdomen Exam: soft, tenderness (LUQ), No mass Extremity Exam: normal inspection, normal range of motion Back Exam: normal inspection, normal range of motion, No CVA tenderness, No vertebral tenderness Pelvic Exam: deferred Rectal Exam: deferred Objective Data Vital Signs: Vital Signs - 24 hr Temp Pulse Resp BP Pulse Ox 06/11/24 10:10 89 16 06/11/24 10:02 89 23 06/11/24 09:00 82 16 141/91 06/11/24 08:00 113 H 19 122/94 99 06/11/24 07:00 78 12 118/92 06/11/24 06:00 93 H 16 121/94 97 06/11/24 05:01 79 19 137/99 98 06/11/24 04:00 98.3 F 85 16 128/66 98 06/11/24 03:00 83 17 124/87 06/11/24 02:00 112 H 19 124/89 06/11/24 01:06 93 H 20 143/94 06/11/24 01:03 101 H 17 06/11/24 00:01 97.6 F 95 H 15 142/108 99 06/10/24 23:00 95 H 21 133/96 98 06/10/24 22:00 84 22 146/101 06/10/24 21:00 81 17 116/96 06/10/24 20:01 97.9 F 74 17 132/87 99 06/10/24 20:00 74 99 06/10/24 19:00 77 22 113/92 99 06/10/24 18:00 85 18 110/87 97 06/10/24 17:00 78 23 118/84 97 06/10/24 16:00 97.6 F 72 16 125/82 96 06/10/24 15:51 70 06/10/24 15:00 76 21 122/94 100 06/10/24 14:00 79 21 118/90 96 06/10/24 13:00 100 H 14 111/73 97 06/10/24 12:29 106 H 19 121/89 98 06/10/24 12:00 117 H Pain Assessment - Last Documented Pain Intensity 6 Pain Scale Used 0-10 Pain Scale Intake and Output: Intake & Output 06/08/24 06/09/24 06/10/24 06/11/24 11:59 11:59 11:59 11:59 Intake Total 3630 2626 Output Total 750 4500 Balance 2880 -1874 Weight 56.4 kg 63.6 kg Lab Results: Lab Results-Last 24 Hours 06/11/24 06/11/24 06/11/24 Range/Units 04:45 04:45 04:45 WBC 6.8 (3.98-10.04) x10^3/uL RBC 3.90 L (3.93-5.22) x10^6/uL Hgb 12.1 (11.2-15.7) g/dL Hct 37.6 (34.1-44.9) % MCV 96.4 H (79.4-94.8) fL MCH 31.0 (25.6-32.2) pg MCHC 32.2 (32.2-35.5) g/dL RDW 12.4 (11.7-14.4) % Plt Count 340 (182-369) x10^3/uL MPV 10.1 (9.4-12.3) fL Sodium 137 (135-145) mmol/L Potassium 4.0 (3.5-5.1) mmol/L Chloride 103 (98-107) mmol/L Carbon Dioxide 29 (22-30) mmol/L Anion Gap 9.3 (5-15) MEQ/L BUN 4 L (7-17) mg/dL Creatinine 0.63 (0.52-1.04) mg/dL Estimated GFR 119.3 ML/MIN Glucose 117 H (74-106) mg/dL Calcium 8.6 (8.4-10.2) mg/dL Total Bilirubin 0.70 (0.2-1.3) mg/dL AST 86 H (14-36) U/L ALT 61 H (0-35) U/L Alkaline Phosphatase 179 H (38-126) U/L Serum Total Protein 6.1 L (6.3-8.2) g/dL Albumin 3.2 L (3.5-5.0) g/dL Lipase 199 (23-300) U/L Radiology Exams: Radiology Procedures Category Date Time Status ABDOMEN AND PELVIS W CONTRAST [CT] Stat Exams 06/09/24 13:38 Completed Assessment/Plan (1) Pancreatitis Current Visit: Yes Status: Acute Code(s): K85.90 - ACUTE PANCREATITIS WITHOUT NECROSIS OR INFECTION, UNSP (2) Alcohol abuse Current Visit: Yes Status: Acute Code(s): F10.10 - ALCOHOL ABUSE, UNCOMPLICATED (3) Abdominal pain Current Visit: Yes Status: Acute Code(s): R10.9 - UNSPECIFIED ABDOMINAL PAIN (4) Nausea & vomiting Current Visit: Yes Status: Acute Code(s): R11.2 - NAUSEA WITH VOMITING, UNSPECIFIED (5) Tachycardia Current Visit: No Status: Acute Code(s): R00.0 - TACHYCARDIA, UNSPECIFIED (6) Hypokalemia Current Visit: Yes Status: Acute Code(s): E87.6 - HYPOKALEMIA (7) Dehydration Current Visit: Yes Status: Acute Assessment & Plan: (1) Pancreatitis Current Visit: Yes Status: Acute Assessment & Plan: - as seen on CT Abd/pelvis - Tele- ICU d/t known hx of complications-with last visit needing higher level of care - NPO - IVF- LR @ 250ml.hr - narcotic pain meds - Protonix - Zofran - A1C - lipid panel - UDS with alcohol level - Pt has a hx of alchol abuse and last drank last night - CIWA protocol - Q2hr I&O - Consider transfer to higher level of care for GI consult as she has has repeated admissions for pancreatitis. 06/10 - Lipase 147 - Nutrition consult PPN - NPO except PO meds - + abd pain 06/11 - Start Clear liquid diet - Consider stopping IVF and PPN if able to tolerate clears - +LUQ pain, + nausea - Tx out of ICU - Lipase 199 Code(s): K85.90 - ACUTE PANCREATITIS WITHOUT NECROSIS OR INFECTION, UNSP (2) Alcohol abuse Current Visit: Yes Status: Acute Assessment & Plan: - Pt admits to last drinking last night, she reports drinking much less since last admission and trying to quit. - She is currently in an OP treatment program and has an upcoming appointment with [facility] in [place], [place]. - UDS with alcohol level - [facility] protocol - Discussed keno terminal operator outcomes of alcohol use. Code(s): F10.10 - ALCOHOL ABUSE, UNCOMPLICATED (3) Abdominal pain Current Visit: Yes Status: Acute Assessment & Plan: - 2:2 pancreatitis as seen on CT - CT abd/pelvis: Impression: 1. New small focus mild/early pancreatitis involving tail of pancreas with tiny free fluid. 2. Again incidental fatty liver. 3. Remaining CT abdomen/pelvis with contrast exam is negative. - See above plan for pancreatitis Code(s): R10.9 - UNSPECIFIED ABDOMINAL PAIN (4) Nausea & vomiting Current Visit: Yes Status: Acute Assessment & Plan: - antiemetics - IVF - Protonix 06/11 - + nausea, no vomiting Code(s): R11.2 - NAUSEA WITH VOMITING, UNSPECIFIED (5) Tachycardia Current Visit: No Status: Acute Assessment & Plan: - Improved with IVF in ER - Tele 06/10 - HR 130'2 this am 2;2 ETOH withdrawl- decreased HR in 100's with valium - coreg started and HR improved 06/11 - HR controlled SR and in 80"s Code(s): R00.0 - TACHYCARDIA, UNSPECIFIED (6) Hypokalemia Current Visit: Yes Status: Acute Assessment & Plan: - K+ 3.2 replaced in the ER- trend- repeat 3.8 06/10 - resolved Code(s): E87.6 - HYPOKALEMIA (7) Dehydration Current Visit: Yes Status: Acute Assessment & Plan: - IVF - anion gap 16.5 06/10 - Resolved Code(s): E86.0 - DEHYDRATION (8) Transaminitis Current Visit: No Status: Acute Assessment & Plan: - AST 86, ALT 61- improved VTE: Lovenox PPI: Protonix Next of KIN: Spouse- Eric Sanders [phone] D/C plan: tomorrow Code status: Full Code(s): R74.01 - ELEVATION OF LEVELS OF LIVER TRANSAMINASE LEVELS
[2024-06-11] MEDS ORDERED: Benadryl Itch Stopping Crm TP PRN (11:34)
[2024-06-11] MEDS ORDERED: OXYCODONE-ACETAMINOPHEN 10-325 PO PRN (12:41)
[2024-06-11] MEDS: PERCOCET TABLET 5/325MG PO PRN (14:39)
[2024-06-11] MEDS: Sodium Chloride 0.9% 1000 ML 1,000 ML IV SCH (17:09)
[2024-06-11] MEDS: MORPHINE SULFATE 4 MG INJ IV PRN (17:09)
[2024-06-11] MEDS: ATARAX 25 MG PO PRN (18:55)
[2024-06-11] MEDS ORDERED: Apresoline 25 MG TABLET PO SCH (22:00)
[2024-06-12 04:34] LABS: Hematocrit 36.3 % (34.1-44.9); Hemoglobin 11.8 g/dL (11.2-15.7); Mean Cell Volume 96.5 fL (79.4-94.8); Mean Corpuscular Hemoglobin 31.4 pg (25.6-32.2); Mean Corpuscular Hgb Concent. 32.5 g/dL (32.2-35.5); Mean Platelet Volume 10.4 fL (9.4-12.3); Platelet Count 264 x10^3/uL (182-369); Red Blood Count 3.76 x10^6/uL (3.93-5.22); Red Cell Distribution Width 12.4 % (11.7-14.4); White Blood Count 6.6 x10^3/uL (3.98-10.04)
[2024-06-12 04:52] LABS: ANION GAP 9.1 MEQ/L (5-15); BILIRUBIN,TOTAL 0.5 mg/dL (0.2-1.3); Calcium 8.2 mg/dL (8.4-10.2); Creatinine 1 0.53 mg/dL (0.52-1.04); EST GLOMERULAR FILTRATION RATE 124.4 ML/MIN; MAGNESIUM 1.7 mg/dL (1.6-2.3); Potassium 3.6 mmol/L (3.5-5.1); Total Protein 5.8 g/dL (6.3-8.2)
[2024-06-12] MEDS: Protonix 20MG Tablet PO SCH (09:21)
--- NOTE | 2024-06-12 11:51 | PCM.NOTE ---
Date and Time: 06/12/24 1140 Subjective Assessment: 06/09/24 is a 33 year old female with past medical history of cholecystectomy and pancreatitis presents to our ED for evaluation of epigastric pain that started yesterday. Patient states she is unable to tolerate oral intake and has been unable to do so since discharge from [facility]. Patient vomits with solids but able to tolerate liquids a little better. Patient's epigastric pain has been progressively worsening today. Pain described as an ache, no radiation. Patient reports that she no longer has her gallbladder. Physical exam reveals epigastric tenderness. Overlying soft tissue intact. No signs of trauma. Symptoms are moderate in intensity. Palpation reproduces pain. Pain improved somewhat with rest. Patient is nauseous as well. CT shows early pancreatitis. Pt made NPO and IVF started. She admits to drinking shots of alcohol yesterday. She states she is in a treatment program and has an upcoming appointment OP in [place] at [facility]. She wants to quit drinking she reports. Alcohol withdrawl protocol started. She denies any further concerns at this t [place]ien. 06/10/24 Pt resting in bed. HR in 130's this AM. She continues to require ICU bed d/t sxs. She reports abd. pain and tightness. Will start PPN today and nutrition consulted. Pt reports H/A's with not eating and had a severe H/A last night. It has resolved this AM. Today she is shaky and not feeling well. She denies CP, SOB, N/V/D. 06/11/24 Pt resting in bed. Abd. pain has improved and now localized to LUQ. She is requesting to start a clear liquid diet today. If she is able to tolerate will d/c PPN and IVF. Will change IV Protonix to PO. Will tx pt out of ICU today as she is doing better and HR under control with Coreg added yesterday. Liver enzymes improved. Lipase 199- improved. May possibly d/c tomorrow if doing better. She denies CP, SOB, V/D. 06/12/24 Pt resting in bed. She states she feels better today and would like to change to norco 7.5 as she takes at home and start with clear liquid diet for breakfast and then transition to soft diet at lunch if able to tolerate. Yesterday she has to change back to IV narcotic pain meds and IV fluids after pain became too much. She is using a heating pad for pain and feels this is helpful. She denies any further concerns at this time. - Review of Systems Constitutional: No Fever, No Chills Eyes: No Symptoms Ears, Nose, & Throat: No Symptoms Respiratory: No Cough, No Short Of Breath Cardiac: No Chest Pain, No Edema, No Syncope Abdominal/Gastrointestinal: Abdominal Pain (LUQ), No Nausea, No Vomiting, No Diarrhea Genitourinary Symptoms: No Dysuria Musculoskeletal: No Back Pain, No Neck Pain Skin: No Rash Neurological: No Dizziness, No Focal Weakness, No Sensory Changes Psychological: No Symptoms Endocrine: No Symptoms Hematologic/Lymphatic: No Symptoms Immunological/Allergic: No Symptoms Objective Exam General Appearance: no apparent distress, alert Neurologic Exam: alert, oriented x 3, cooperative, normal mood/affect, nml cerebellar function, sensation nml, No motor deficits Skin Exam: normal color, warm, dry Eye Exam: PERRL, EOMI, eyes nml inspection Ears, Nose, Throat Exam: normal ENT inspection, pharynx normal, moist mucous membranes Neck Exam: normal inspection, non-tender, supple, full range of motion Respiratory Exam: normal breath sounds, lungs clear, No respiratory distress Cardiovascular Exam: regular rate/rhythm, normal heart sounds Gastrointestinal/Abdomen Exam: soft, tenderness (LUQ), No mass Extremity Exam: normal inspection, normal range of motion Back Exam: normal inspection, normal range of motion, No CVA tenderness, No vertebral tenderness Pelvic Exam: deferred Rectal Exam: deferred Objective Data Vital Signs: Vital Signs - 24 hr Temp Pulse Resp BP Pulse Ox 06/12/24 07:39 97.9 F 81 20 115/79 95 06/12/24 04:00 97.7 F 73 18 136/94 100 06/11/24 23:28 98.0 F 76 16 133/58 98 06/11/24 20:00 97 06/11/24 19:44 98.0 F 87 16 124/82 97 06/11/24 16:13 97.6 F 89 15 154/92 99 06/11/24 12:26 97.5 F Pain Assessment - Last Documented Pain Intensity 8 Pain Scale Used 0-10 Pain Scale Intake and Output: Intake & Output 09/1006/10/24 06/11/24 06/12/24 11:59 11:59 11:59 11:59 Intake Total 3631 4302 5782 Output Total 802 4500 Balance 2880 -1914 5737 Weight 56.4 kg 63.6 kg 63 kg Lab Results: Lab Results-Last 24 Hours 06/12/24 06/12/24 Range/Units 04:25 04:25 WBC 6.6 (3.98-10.04) x10^3/uL RBC 3.76 L (3.93-5.22) x10^6/uL Hgb 11.8 (11.2-15.7) g/dL Hct 36.3 (34.1-44.9) % MCV 96.5 H (79.4-94.8) fL MCH 31.4 (25.6-32.2) pg MCHC 32.5 (32.2-35.5) g/dL RDW 12.4 (11.7-14.4) % Plt Count 264 (182-369) x10^3/uL MPV 10.4 (9.4-12.3) fL Sodium 135 (135-145) mmol/L Potassium 3.6 (3.5-5.1) mmol/L Chloride 106 (98-107) mmol/L Carbon Dioxide 25 (22-30) mmol/L Anion Gap 9.1 (5-15) MEQ/L BUN 3 L (7-17) mg/dL Creatinine 0.53 (0.52-1.04) mg/dL Estimated GFR 124.4 ML/MIN Glucose 117 H (74-106) mg/dL Calcium 8.2 L (8.4-10.2) mg/dL Magnesium 1.7 (1.6-2.3) mg/dL Total Bilirubin 0.50 (0.2-1.3) mg/dL AST 62 H (14-36) U/L ALT 46 H (0-35) U/L Alkaline Phosphatase 148 H (38-126) U/L Serum Total Protein 5.8 L (6.3-8.2) g/dL Albumin 3.0 L (3.5-5.0) g/dL Multi-Disciplinary Progress Notes: Multi-Disciplinary Progress Notes 06/12/24 09:53 Case Management Note by Vira Campbell S/W PATIENT- SHE CONTINUES TO DENY ANY NEW NEEDS AT TIME OF DC. SHE PLANS TO DC HOME TO HER PLF AT TIME OF DC. Initialized on 06/12/24 09:53 - END OF NOTE 06/11/24 12:25 Case Management Note by Vira Campbell PATIENT CONTINUES TO DENY ANY NEW NEEDS AT TIME OF DC. SHE PLANS TO DC HOME TO HER PLF AT TIME OF DC Initialized on 06/11/24 12:25 - END OF NOTE Assessment/Plan (1) Pancreatitis Current Visit: Yes Status: Acute Code(s): K85.90 - ACUTE PANCREATITIS WITHOUT NECROSIS OR INFECTION, UNSP (2) Alcohol abuse Current Visit: Yes Status: Acute Code(s): F10.10 - ALCOHOL ABUSE, UNCOMPLICATED (3) Abdominal pain Current Visit: Yes Status: Acute Code(s): R10.9 - UNSPECIFIED ABDOMINAL PAIN (4) Nausea & vomiting Current Visit: Yes Status: Acute Code(s): R11.2 - NAUSEA WITH VOMITING, UN SPECIFIED (5) Tachycardia Current Visit: No Status: Acute Code(s): R00.0 - TACHYCARDIA, UNSPECIFIED (6) Hypokalemia Current Visit: Yes Status: Acute Code(s): E87.6 - HYPOKALEMIA (7) Dehydration Current Visit: Yes Status: Acute Code(s): E86.0 - DEHYDRATION (8) Transaminitis Current Visit: No Status: Acute Assessment & Plan: (1) Pancreatitis Current Visit: Yes Status: Acute Assessment & Plan: - as seen on CT Abd/pelvis - Tele- ICU d/t known hx of complications-with last visit needing higher level of care - NPO - IVF- LR @ 250ml.hr - narcotic pain meds - Protonix - Zofran - A1C - lipid panel - UDS with alcohol level - Pt has a hx of alchol abuse and last drank last night - CIWA protocol - Q2hr I&O - Consider transfer to higher level of care for GI consult as she has has repeated admissions for pancreatitis. 06/10 - Lipase 147 - Nutrition consult PPN - NPO except PO meds - + abd pain 06/11 - Start Clear liquid diet - Consider stopping IVF and PPN if able to tolerate clears - +LUQ pain, + nausea - Tx out of ICU - Lipase 199 06/12 - Morphine- changed to PO narcotic pain meds - transition diet as tolerated - Continued LUQ pain - Cont IVF Code(s): K85.90 - ACUTE PANCREATITIS WITHOUT NECROSIS OR INFECTION, UNSP (2) Alcohol abuse Current Visit: Yes Status: Acute Assessment & Plan: - Pt admits to last drinking last night, she reports drinking much less since last admission and trying to quit. - She is currently in an OP treatment program and has an upcoming appointment with [facility] in [place], [place]. - UDS with alcohol level - [facility] protocol - Discussed terminal block assembler outcomes of alcohol use. Code(s): F10.10 - ALCOHOL ABUSE, UNCOMPLICATED (3) Abdominal pain Current Visit: Yes Status: Acute Assessment & Plan: - 2:2 pancreatitis as seen on CT - CT abd/pelvis: Impression: 1. New small focus mild/early pancreatitis involving tail of pancreas with tiny free fluid. 2. Again incidental fatty liver. 3. Remaining CT abdomen/pelvis with contrast exam is negative. - See above plan for pancreatitis Code(s): R10.9 - UNSPECIFIED ABDOMINAL PAIN (4) Nausea & vomiting Current Visit: Yes Status: Acute Assessment & Plan: - antiemetics - IVF - Protonix 06/11 - + nausea, no vomiting Code(s): R11.2 - NAUSEA WITH VOMITING, UNSPECIFIED (5) Tachycardia Current Visit: No Status: Acute Assessment & Plan: - Improved with IVF in ER - Tele 06/10 - HR 130'2 this am 2;2 ETOH withdrawl- decreased HR in 100's with valium - coreg started and HR improved 06/11 - HR controlled SR and in 80"s- resolved Code(s): R00.0 - TACHYCARDIA, UNSPECIFIED (6) Hypokalemia Current Visit: Yes Status: Acute Assessment & Plan: - K+ 3.2 replaced in the ER- trend- repeat 3.8 06/10 - resolved Code(s): E87.6 - HYPOKALEMIA (7) Dehydration Current Visit: Yes Status: Acute Assessment & Plan: - IVF - anion gap 16.5 06/10 - Resolved Code(s): E86.0 - DEHYDRATION (8) Transaminitis Current Visit: No Status: Acute Assessment & Plan: - AST 86, ALT 61- improved 06/12 - AST 62, ALT 46- improved VTE: Lovenox PPI: Protonix Next of KIN: Spouse- Eric Sanders [phone] D/C plan: tomorrow Code status: Full Code(s): R74.01 - ELEVATION OF LEVELS OF LIVER TRANSAMINASE LEVELS Code(s): R74.01 - ELEVATION OF LEVELS OF LIVER TRANSAMINASE LEVELS
[2024-06-12] MEDS: NORCO 7.5/325 MG TAB PO PRN ×2 (13:34→18:05)
[2024-06-13 05:57] LABS: Absolute Neutrophil Ct (ANC) 3.44 x10^3/uL (1.56-6.13); BASOPHIL % 0.7 % (0.1-1.2); Basophil (Absolute #) 0.05 x10^3/uL (0.01-0.08); Eosinophil % 11.4 % (0.7-5.8); Eosinophil (Absolute #) 0.77 x10^3/uL (0.04-0.36); Hematocrit 36.6 % (34.1-44.9); Hemoglobin 11.9 g/dL (11.2-15.7); IMMATURE GRAN # 0.02 x10^3u/L (0.001-0.031); IMMATURE GRAN % 0.3 % (0.001-0.429); Lymphocytes % 28.1 % (19.3-51.7); Mean Cell Volume 95.6 fL (79.4-94.8); Mean Corpuscular Hemoglobin 31.1 pg (25.6-32.2); Mean Corpuscular Hgb Concent. 32.5 g/dL (32.2-35.5); Mean Platelet Volume 10.8 fL (9.4-12.3); Monocyte (Absolute #) 0.58 x10^3/uL (0.24-0.86); Monocytes % 8.6 % (4.7-12.5); Neutrophil % 50.9 % (34.0-71.1); Platelet Count 241 x10^3/uL (182-369); Red Blood Count 3.83 x10^6/uL (3.93-5.22); Red Cell Distribution Width 12.7 % (11.7-14.4); White Blood Count 6.8 x10^3/uL (3.98-10.04)
[2024-06-13 06:29] LABS: BILIRUBIN,TOTAL 0.4 mg/dL (0.2-1.3); Calcium 8.8 mg/dL (8.4-10.2); Creatinine 1 0.57 mg/dL (0.52-1.04); EST GLOMERULAR FILTRATION RATE 122.2 ML/MIN; MAGNESIUM 1.9 mg/dL (1.6-2.3); Potassium 4.1 mmol/L (3.5-5.1); Total Protein 5.8 g/dL (6.3-8.2)
[2024-06-13] MEDS ORDERED: NORCO 7.5/325 MG TAB ONE (06:30)
[2024-06-13 07:00] VITALS: RESP 16
--- NOTE | 2024-06-13 10:11 | PCM.DS ---
Discharge Summary Date of Admission: 06/09/24 16:15 Date of Discharge: 06/13/24 Admitting Physician: LUZMARIA BLACK MD Consults: Consults on Case 06/10/24 10:07 Nutritional Consult ROUTINE Primary Care Provider: NO FAMILY DOCTOR Allergies Allergies No Known Drug Allergies Allergy (Verified 06/09/24 13:33) Hospital Summary - Hospital Course Hospital Course: 06/09/24 is a 33 year old female with past medical history of cholecystectomy and pancreatitis presents to our ED for evaluation of epigastric pain that started yesterday. Patient states she is unable to tolerate oral intake and has been unable to do so since discharge from [facility]. Patient vomits with solids but able to tolerate liquids a little better. Patient's epigastric pain has been progressively worsening today. Pain described as an ache, no radiation. Patient reports that she no longer has her gallbladder. Physical exam reveals epigastric tenderness. Overlying soft tissue intact. No signs of trauma. Symptoms are moderate in intensity. Palpation reproduces pain. Pain improved somewhat with rest. Patient is nauseous as well. CT shows early pancreatitis. Pt made NPO and IVF started. She admits to drinking shots of alcohol yesterday. She states she is in a treatment program and has an upcoming appointment OP in [place] at [facility]. She wants to quit drinking she reports. Alcohol withdrawl protocol started. She denies any further concerns at this time. 06/10/24 Pt resting in bed. HR in 130's this AM. She continues to require ICU bed d/t sxs. She reports abd. pain and tightness. Will start PPN today and nutrition consulted. Pt reports H/A's with not eating and had a severe H/A last night. It has resolved this AM. Today she is shaky and not feeling well. She denies CP, SO B, N/V/D. 06/11/24 Pt resting in bed. Abd. pain has improved and now localized to LUQ. She is reque sting to start a clear liquid diet today. If she is able to tolerate will d/c PPN and IVF. Will change IV Protonix to PO. Will tx pt out of ICU today as she is doing better and HR under control with Coreg added yesterday. Liver enzymes improved. Lipase 199- improved. May possibly d/c tomorrow if doing better. She denies CP, SOB, V/D. 06/12/24 Pt resting in bed. She states she feels better today and would like to change to norco 7.5 as she takes at home and start with clear liquid diet for breakfast and then transition to soft diet at lunch if able to tolerate. Yesterday she has to change back to IV narcotic pain meds and IV fluids after pain became too much. She is using a heating pad for pain and feels this is helpful. She denies any further concerns at this time. 06/13/24 Pt resting in bed. She is feeling better but having some abd pain with eating. She has not been following a low fat diet and eating food that has been brought in. She has someone bring her a bottle of hot sauce last night per staff. Discussed in detail diet for pancreatitis. She is wanting to d/c today after lunch. Educated to f/u with OP alcohol treatment program. She explained she plans to do so. She is at high risk for readmission if she is noncompliant. Advised her to obtain GI and PCP for f/u OP. She denies any further concerns at this time. - Vitals & Intake/Output Vital Signs: Vital Signs Temperature 97.7 F 06/13/24 06:59 Pulse Rate 69 06/13/24 06:59 Respiratory Rate 16 06/13/24 06:59 Blood Pressure 118/76 06/13/24 06:59 O2 Sat by Pulse Oximetry 96 06/13/24 06:59 Intake & Output: Intake & Output 06/10/24 06/11/24 06/12/24 06/13/24 11:59 11:59 11:59 11:59 Intake Total 3630 2626 5737 480 Output Total 054 4500 Balance 2200 -4783 5777 480 Weight 56.4 kg 63.6 kg 63 kg - Lab Result Diagrams: 06/13/24 05:45 06/13/24 05:45 Lab Results-Last 24 Hrs: Lab Results-Last 24 Hours 06/13/24 06/13/24 Range/Units 05:45 05:45 WBC 6.8 (3.98-10.04) x10^3/uL RBC 3.83 L (3.93-5.22) x10^6/uL Hgb 11.9 (11.2-15.7) g/dL Hct 36.6 (34.1-44.9) % MCV 95.6 H (79.4-94.8) fL MCH 31.1 (25.6-32.2) pg MCHC 32.5 (32.2-35.5) g/dL RDW 12.7 (11.7-14.4) % Plt Count 241 (182-369) x10^3/uL MPV 10.8 (9.4-12.3) fL Gran % 50.9 (34.0-71.1) % Immature Gran % (Auto) 0.3 (0.001-0.429) % Nucleat RBC Rel Count 0.0 (0.00-0.2) % Eos # (Auto) 0.77 H (0.04-0.36) x10^3/uL Immature Gran # (Auto) 0.02 (0.001-0.031) x10^3u/L Absolute Lymphs (auto) 1.90 (1.18-3.74) x10^3/uL Absolute Monos (auto) 0.58 (0.24-0.86) x10^3/uL Absolute Nucleated RBC 0.00 (0.00-0.012) x10^3u/L Lymphocytes % 28.1 (19.3-51.7) % Monocytes % 8.6 (4.7-12.5) % Eosinophils % 11.4 H (0.7-5.8) % Basophils % 0.7 (0.1-1.2) % Absolute Granulocytes 3.44 (1.56-6.13) x10^3/uL Basophils # 0.05 (0.01-0.08) x10^3/uL Sodium 135 (135-145) mmol/L Potassium 4.1 (3.5-5.1) mmol/L Chloride 103 (98-107) mmol/L Carbon Dioxide 28 (22-30) mmol/L Anion Gap 8.0 (5-15) MEQ/L BUN 9 (7-17) mg/dL Creatinine 0.57 (0.52-1.04) mg/dL Estimated GFR 122.2 ML/MIN Glucose 114 H (74-106) mg/dL Calcium 8.8 (8.4-10.2) mg/dL Magnesium 1.9 (1.6-2.3) mg/dL Total Bilirubin 0.40 (0.2-1.3) mg/dL AST 52 H (14-36) U/L ALT 39 H (0-35) U/L Alkaline Phosphatase 132 H (38-126) U/L Serum Total Protein 5.8 L (6.3-8.2) g/dL Albumin 3.0 L (3.5-5.0) g/dL Micro Results-Entire Visit: Microbiology 06/09/24 13:58 Urine Culture - Final Clean Catch Midstream MIXED ANDRES; 3 OR MORE TYPES. NO PREDOMINANT ORGANISM. NO FURTHER WORKUP. PLEASE RESUBMIT IF CLINICALLY INDICATED. - Procedures and Test Procedures and Tests throughout Hospitalization: Therapy Orders & Screens 06/09/24 17:57 Smoking Cessation Education ONCE Comment: Diagnosis: epigastric pain, N/V Smoking Status: Light tobacco smoker How long have you smoked: years Have you smoked in the past 12 months: Yes Do you dip or chew tobacco: No If,Former Smoker,when did you quit: 4 yrs ago Discharge Exam General Appearance: no apparent distress, alert Neurologic Exam: alert, oriented x 3, cooperative, normal mood/affect, nml cerebellar function, sensation nml, No motor deficits Eye Exam: PERRL, EOMI, eyes nml inspection Ears, Nose, Throat Exam: normal ENT inspection, pharynx normal, moist mucous membranes Neck Exam: normal inspection, non-tender, supple, full range of motion Respiratory Exam: normal breath sounds, lungs clear, No respiratory distress Cardiovascular Exam: regular rate/rhythm, normal heart sounds Gastrointestinal/Abdomen Exam: soft, tenderness (LUQ), No mass Pelvic Exam: deferred Rectal Exam: deferred Back Exam: normal inspection, normal range of motion, No CVA tenderness, No vertebral tenderness Extremity Exam: normal inspection, normal range of motion Skin Exam: normal color, warm, dry Final Diagnosis/Problem List - Final Discharge Diagnosis/Problem (1) Pancreatitis Current Visit: Yes Status: Acute Code(s): K85.90 - ACUTE PANCREATITIS WITHOUT NECROSIS OR INFECTION, UNSP (2) Alcohol abuse Current Visit: Yes Status: Acute Code(s): F10.10 - ALCOHOL ABUSE, UNCOMPLICATED (3) Abdominal pain Current Visit: Yes Status: Acute Code(s): R10.9 - UNSPECIFIED ABDOMINAL PAIN (4) Nausea & vomiting Current Visit: Yes Status: Acute Code(s): R11.2 - NAUSEA WITH VOMITING, UNSPECIFIED (5) Tachycardia Current Visit: No Status: Acute Code(s): R00.0 - TACHYCARDIA, UNSPECIFIED (6) Hypokalemia Current Visit: Yes Status: Acute Code(s): E87.6 - HYPOKALEMIA (7) Dehydration Current Visit: Yes Status: Acute Code(s): E86.0 - DEHYDRATION (8) Transaminitis Current Visit: No Status: Acute Assessment & Plan: (1) Pancreatitis Current Visit: Yes Status: Acute Assessment & Plan: - as seen on CT Abd/pelvis - Tele- ICU d/t known hx of complications-with last visit needing higher level of care - NPO - IVF- LR @ 250ml.hr - narcotic pain meds - Protonix - Zofran - A1C - lipid panel - UDS with alcohol level - Pt has a hx of alchol abuse and last drank last night - [facility] protocol - Q2hr I&O - Consider transfer to higher level of care for GI consult as she has has repeated admissions for pancreatitis. 06/10 - Lipase 147 - Nutrition consult PPN - NPO except PO meds - + abd pain 06/11 - Start Clear liquid diet - Consider stopping IVF and PPN if able to tolerate clears - +LUQ pain, + nausea - Tx out of ICU - Lipase 199 06/12 - Morphine- changed to PO narcotic pain meds - transition diet as tolerated - Continued LUQ pain - Cont IVF 06/13 - educated low fat diet - advised ETOH cessation Code(s): K85.90 - ACUTE PANCREATITIS WITHOUT NECROSIS OR INFECTION, UNSP (2) Alcohol abuse Current Visit: Yes Status: Acute Assessment & Plan: - Pt admits to last drinking last night, she reports drinking much less since last admission and trying to quit. - She is currently in an OP treatment program and has an upcoming appointment with [facility] in [place], [place]. - UDS with alcohol level - [facility] protocol - Discussed intermediate outcomes of alcohol use. Code(s): F10.10 - ALCOHOL ABUSE, UNCOMPLICATED (3) Abdominal pain Current Visit: Yes Status: Acute Assessment & Plan: - 2:2 pancreatitis as seen on CT - CT abd/pelvis: Impression: 1. New small focus mild/early pancreatitis involving tail of pancreas with tiny free fluid. 2. Again incidental fatty liver. 3. Remaining CT abdomen/pelvis with contrast exam is negative. - See above plan for pancreatitis Code(s): R10.9 - UNSPECIFIED ABDOMINAL PAIN (4) Nausea & vomiting Current Visit: Yes Status: Acute Assessment & Plan: - antiemetics - IVF - Protonix 06/11 - + nausea, no vomiting 06/13 - denies N/V Code(s): R11.2 - NAUSEA WITH VOMITING, UNSPECIFIED (5) Tachycardia Current Visit: No Status: Acute Assessment & Plan: - Improved with IVF in ER - Tele 06/10 - HR 130'2 this am 2;2 ETOH withdrawl- decreased HR in 100's with valium - coreg started and HR improved 06/11 - HR controlled SR and in 80"s- resolved Code(s): R00.0 - TACHYCARDIA, UNSPECIFIED (6) Hypokalemia Current Visit: Yes Status: Acute Assessment & Plan: - K+ 3.2 replaced in the ER- trend- repeat 3.8 06/10 - resolved Code(s): E87.6 - HYPOKALEMIA (7) Dehydration Current Visit: Yes Status: Acute Assessment & Plan: - IVF - anion gap 16.5 06/10 - Resolved Code(s): E86.0 - DEHYDRATION (8) Transaminitis Current Visit: No Status: Acute Assessment & Plan: - AST 86, ALT 61- improved 06/12 - AST 62, ALT 46- improved 06/13 - AST 52, ALT-39 Code(s): R74.01 - ELEVATION OF LEVELS OF LIVER TRANSAMINASE LEVELS - Discharge Discharge Date: 06/13/24 Disposition: Home, Self-Care Condition: Stable Prescriptions: New Hydroxyzine HCl 25 mg [Atarax 25 mg] 25 mg PO BID PRN PRN 30 Days #60 tablet PRN Reason: Anxiety Hydrocodone/Acetaminophen [Hydrocodone-Acetamin 7.5-325] 1 each PO Q4H PRN PRN 3 Days #15 tablet MDD 5 PRN Reason: Moderate To Severe Pain Follow up with: BHASKAR ELIAS, PAMELA [NON-STAFF PHY W/O PRIVILEGES] - 06/24/24 3:30 pm
[2024-06-13 11:52] VITALS: BP 129/89; PULSE 93; TEMP 97.9; O2SAT 98
== END 2024-06-13 12:58 | disposition home or self-care (01) | DRG 440 ==
LOC: ED 13:20 → ICU 16:15 → OBSVTOIN 16:15 → MED SURG 06-11 12:18
PROVIDERS: ADMIT Internal Medicine; ATTEND Internal Medicine
DX: K85.90 Acute pancreatitis without necrosis or infection, unspecified (principal); E87.6 Hypokalemia; R11.2 Nausea with vomiting, unspecified; R00.0 Tachycardia, unspecified; E86.0 Dehydration; F10.10 Alcohol abuse, uncomplicated; R74.01 Elevation of levels of liver transaminase levels
CPT/HCPCS: 36000; 36415; 74177; 80053; 80061; 80307; 81001; 81025; 82077; 83036; 83690; 83721; 83735; 84132; 84484; 85025; 85027; 87086; 96374; 96375; 96376; 99285; J0360; J1170; J1650; J2270; J2405; J2550; J3360; J3475; J3480; Q3014; A9270-GY

== ENCOUNTER 2024-07-06 20:07 | Emergency (ER) | payer BC ==
--- NOTE | 2024-07-06 20:42 | ERPHSYRPT ---
- History of Present Illness Time Seen by Provider: 07/06/24 20:42 Historian: patient, family Exam Limitations: no limitations Physician History: This is a 33-year-old white female patient with no primary care provider and no known drug allergies and presents by private vehicle escorted by a friend and has a history of recurrent bouts of acute pancreatitis since her gallbladder was removed in November 2023. Patient states he typically are associated with post alcohol consumption. Most recently, the patient drink apple whiskey yesterday and in the evening she started not feeling well and her symptoms of left flank and left upper quadrant abdominal pain with associated vomiting and worsened today. Patient is set to see a odd piece checker soon. Patient is laughing and smiling. Patient has a history of bipolar disorder, anxiety issues, and has multiple personality disorder. She denies chest pain. She denies shortness of breath. Timing/Duration: yesterday, worse (Neck) Abdominal Pain Onset Location: LUQ, flank (Left flank) Pain Radiation: LUQ, flank (Left flank) Severity of Pain-Max: moderate Modifying Factors: Improves With: nothing Associated Symptoms: vomiting, No chest pain, No fever/chills, No shortness of breath Previous symptoms: same symptoms as today, no recent treatment Allergies/Adverse Reactions: No Known Drug Allergies Allergy (Verified 07/06/24 21:00) Hx Tetanus, Diphtheria Vaccination/Date Given: Yes Hx Influenza Vaccination/Date Given: No Hx Pneumococcal Vaccination/Date Given: No Travel Risk - International Travel Have you traveled outside of the country in past 3 weeks: No - Emerging Infectious Disease Are you exhibiting symptoms associated with any current EIDs: Yes Symptoms: Abdominal Pain - Review of Systems Constitutional: No Symptoms Eyes: No Symptoms Ears, Nose, & Throat: No Symptoms Respiratory: No Symptoms Cardiac: No Symptoms Abdominal/Gastrointestinal: Abdominal Pain, Vomiting, Appetite Changes Genitourinary Symptoms: No Symptoms Musculoskeletal: No Symptoms Skin: No Symptoms Neurological: No Symptoms Psychological: No Symptoms Endocrine: No Symptoms Hematologic/Lymphatic: No Symptoms Immunological/Allergic: No Symptoms All Other Systems: Reviewed and Negative - Past Medical History Pertinent Past Medical History: Yes Neurological History: Migraines ENT History: No Pertinent History Cardiac History: No Pertinent History Respiratory History: No Pertinent History Endocrine Medical History: No Pertinent History Musculoskeletal History: No Pertinent History GI Medical History: No Pertinent History, Gallbladder Disease, Pancreatitis History: No Pertinent History Psycho-Social History: Anxiety, Bipolar, Depression, Other Female Reproductive Disorders: No Pertinent History Other Medical History: multiple personality disorder - Past Surgical History Past Surgical History: Yes Neuro Surgical History: No Pertinent History Cardiac: No Pertinent History Respiratory: No Pertinent History Gastrointestinal: Cholecystectomy Genitourinary: No Pertinent History Musculoskeletal: No Pertinent History Female Surgical History: No Pertinent History Significant Family History: hypertension (father) - Female History Hx Last Menstrual Period: last week - Social History Smoking Status: Light tobacco smoker How long have you smoked: years Exposure to second hand smoke: Yes Drug Use: none Patient Lives Alone: No - Social Determinants of Health Will the patient participate in the screening: Yes Do you worry about a steady place to live?: No In the past 12 months,have you had to go without utilities?: No Transportation Issues: No Has anyone in your support network made you feel unsafe?: No Have you or anyone in your house had to go without enough: No - Nursing Vital Signs Nursing Vital Signs: Initial Vital Signs Temperature 98.0 F 07/06/24 20:41 Pulse Rate 128 H 07/06/24 20:41 Respiratory Rate 16 07/06/24 20:41 Blood Pressure 129/105 07/06/24 20:41 O2 Sat by Pulse Oximetry 97 07/06/24 20:41 Pain Scale Pain Intensity 3 - Physical Exam General Appearance: no apparent distress, alert, anxiety Eye Exam: PERRL/EOMI, eyes nml inspection Ears, Nose, Throat Exam: normal ENT inspection, moist mucous membranes Neck Exam: normal inspection, non-tender, supple, full range of motion Respiratory Exam: normal breath sounds, lungs clear, airway intact, No chest tenderness, No respiratory distress Cardiovascular Exam: tachycardia Gastrointestinal/Abdomen Exam: soft, normal bowel sounds, tenderness (Upper quadrant and left flank to palpation), guarding (Left upper quadrant) Pelvic Exam: not done Rectal Exam: not done Back Exam: normal inspection, normal range of motion (Left flank tenderness), No vertebral tenderness Extremity Exam: normal inspection, normal range of motion, pelvis stable Neurologic Exam: alert, oriented x 3, cooperative, money market dealer II-XII nml as tested, nml cerebellar function, nml station & gait, sensation nml Skin Exam: normal color, warm, dry Lymphatic Exam: No adenopathy SpO2 Interpretation: normal O2 Delivery: Room Air - Course Nursing assessment & vital signs reviewed: Yes Ordered Tests: Active Orders 24 hr Category Date Time Status Clean Catch Urine Specimen STAT Care 07/06/24 20:55 Active IV Insertion STAT Care 07/06/24 20:55 Active ABDOMEN AND PELVIS W/0 CONTRAS [CT] Stat Exams 07/06/24 20:56 Taken AMYLASE Stat Lab 07/06/24 21:35 Completed CBC W DIFF Stat Lab 07/06/24 21:35 Completed CMP Stat Lab 07/06/24 21:35 Completed CULTURE,URINE Stat Lab 07/06/24 22:27 Received LIPASE Stat Lab 07/06/24 21:35 Completed UA W/RFX UR CULTURE Stat Lab 07/06/24 22:27 Completed Urine Triage Profile Stat Lab 07/06/24 22:27 Completed Medication Summary Generic Name Dose Route Start Last Admin Trade Name Freq PRN Reason Stop Dose Admin Lactated Ringer's 1,000 mls @ 999 mls/hr 07/06/24 22:24 Lactated Ringers IV 07/06/24 23:24 .Q1H1M ONE Ceftriaxone Sodium 1 gm in 100 mls @ 200 mls/hr 07/06/24 22:57 Rocephin 1 Gm / 100 Ml Nacl IV 07/06/24 23:26 STAT ONE Discontinued Medications Generic Name Dose Route Start Last Admin Trade Name Freq PRN Reason Stop Dose Admin Hydromorphone HCl 1 mg 07/06/24 20:55 07/06/24 21:48 Hydromorphone 1 Mg/1ml Inj IV 07/06/24 20:56 1 mg STAT ONE Administration Hydromorphone HCl Confirm 07/06/24 21:40 Hydromorphone 1 Mg/1ml Inj Administered 07/06/24 21:41 Dose 1 mg .ROUTE .STK-MED ONE Sodium Chloride 1,000 mls @ 999 mls/hr 07/06/24 20:55 07/06/24 21:42 Sodium Chloride 0.9% 1000 Ml IV 07/06/24 21:55 999 mls/hr .Q1H1M STA Administration Sodium Chloride Confirm 07/06/24 21:41 Sodium Chloride 0.9% 1000 Ml Administered 07/06/24 21:42 Dose 1,000 mls @ ud .ROUTE .STK-MED ONE Ondansetron HCl 4 mg 07/06/24 20:55 10/07/24 21:45 Ondansetron Hcl 4 Mg/2 Ml Vial IV 07/06/24 20:56 4 mg STAT ONE Administration Ondansetron HCl Confirm 07/06/24 21:40 Ondansetron Hcl 4 Mg/2 Ml Vial Administered 07/06/24 21:41 Dose 4 mg .ROUTE .STK-MED ONE Pantoprazole Sodium 40 mg 07/06/24 20:55 07/06/24 21:46 Pantoprazole 40 Mg Vial IV 07/06/24 20:56 40 mg STAT ONE Administration Pantoprazole Sodium Confirm 07/06/24 21:40 Pantoprazole 40 Mg Vial Administered 07/06/24 21:41 Dose 40 mg IV .STK-MED ONE Potassium Chloride 20 meq 07/06/24 22:03 07/06/24 22:29 Potassium Chloride Tab 10 Meq Tab PO 07/06/24 22:04 20 meq STAT ONE Administration Potassium Chloride Confirm 07/06/24 22:28 Potassium Chloride Tab 10 Meq Tab Administered 07/06/24 22:29 Dose 20 meq .ROUTE .STK-MED ONE Lab/Rad Data: Laboratory Result Diagrams 07/06/24 21:35 07/06/24 21:35 Laboratory Results 07/06/24 07/06/24 07/06/24 Range/Units 22:27 22:27 21:35 WBC (3.98-10.04) x10^3/uL RBC (3.93-5.22) x10^6/uL Hgb (11.2-15.7) g/dL Hct (34.1-44.9) % MCV (79.4-94.8) fL MCH (25.6-32.2) pg MCHC (32.2-35.5) g/dL RDW (11.7-14.4) % Plt Count (182-369) x10^3/uL MPV (9.4-12.3) fL Gran % (34.0-71.1) % Immature Gran % (Auto) (0.001-0.429) % Nucleat RBC Rel Count (0.00-0.2) % Eos # (Auto) (0.04-0.36) x10^3/uL Immature Gran # (Auto) (0.001-0.031) x10^3u/L Absolute Lymphs (auto) (1.18-3.74) x10^3/uL Absolute Monos (auto) (0.24-0.86) x10^3/uL Absolute Nucleated RBC (0.00-0.012) x10^3u/L Lymphocytes % (19.3-51.7) % Monocytes % (4.7-12.5) % Eosinophils % (0.7-5.8) % Basophils % (0.1-1.2) % Absolute Granulocytes (1.56-6.13) x10^3/uL Basophils # (0.01-0.08) x10^3/uL Sodium 144 (135-145) mmol/L Potassium 3.3 L (3.5-5.1) mmol/L Chloride 107 (98-107) mmol/L Carbon Dioxide 20 L (22-30) mmol/L Anion Gap 20.8 H (5-15) MEQ/L BUN 4 L (7-17) mg/dL Creatinine 0.64 (0.52-1.04) mg/dL Estimated GFR 118.9 ML/MIN Glucose 130 H (74-106) mg/dL Calcium 9.0 (8.4-10.2) mg/dL Total Bilirubin 0.60 (0.2-1.3) mg/dL AST 261 H (14-36) U/L ALT 128 H (0-35) U/L Alkaline Phosphatase 223 H (38-126) U/L Serum Total Protein 7.7 (6.3-8.2) g/dL Albumin 4.1 (3.5-5.0) g/dL Amylase 87 (30-110) U/L Lipase 123 (23-300) U/L Urine Color Dark Yellow A (Yellow) Urine Appearance Turbid A (Clear) Urine pH 5.5 (4.6-8.0) Ur Specific [place] 1.025 (1.005-1.030) Urine Protein 30 (Negative) Urine Glucose (UA) Negative (Negative) mg/dL Urine Ketones Trace A (Negative) Urine Blood Negative (Negative) Urine Nitrite Negative (Negative) Urine Bilirubin Small A (Negative) Urine Urobilinogen 1.0 A (0.2) mg/dL Ur Leukocyte Esterase Moderate A (Negative) U Hyaline Cast (Auto) None Seen (0-2) /LPF Urine Microscopic RBC 0-2 (0-5) /HPF Urine Microscopic WBC 6-10 A (0-5) /HPF Ur Epithelial Cells Many A (None Seen) /HPF Calcium Oxalate Crystal 3-5 A (None Seen) /HPF Urine Bacteria Moderate A (None Seen) /HPF Urine Culture Reflexed YES (NO) Urine Opiates Level POSITIVE A (NEGATIVE) Ur Methadone NEGATIVE (NEGATIVE) Urine Barbiturates NEGATIVE (NEGATIVE) Ur Phencyclidine (PCP) NEGATIVE (NEGATIVE) Urine Amphetamine NEGATIVE (NEGATIVE) U Benzodiazepine Level NEGATIVE (NEGATIVE) Urine Cocaine NEGATIVE (NEGATIVE) Urine Marijuana (THC) NEGATIVE (NEGATIVE) 07/06/24 Range/Units 21:35 WBC 7.7 (3.98-10.04) x10^3/uL RBC 4.99 (3.93-5.22) x10^6/uL Hgb 14.9 (11.2-15.7) g/dL Hct 44.2 (34.1-44.9) % MCV 88.6 (79.4-94.8) fL MCH 29.9 (25.6-32.2) pg MCHC 33.7 (32.2-35.5) g/dL RDW 12.3 (11.7-14.4) % Plt Count 507 H (182-369) x10^3/uL MPV 9.2 L (9.4-12.3) fL Gran % 53.5 (34.0-71.1) % Immature Gran % (Auto) 0.3 (0.001-0.429) % Nucleat RBC Rel Count 0.0 (0.00-0.2) % Eos # (Auto) 0.12 (0.04-0.36) x10^3/uL Immature Gran # (Auto) 0.02 (0.001-0.031) x10^3u/L Absolute Lymphs (auto) 2.71 (1.18-3.74) x10^3/uL Absolute Monos (auto) 0.64 (0.24-0.86) x10^3/uL Absolute Nucleated RBC 0.00 (0.00-0.012) x10^3u/L Lymphocytes % 35.1 (19.3-51.7) % Monocytes % 8.3 (4.7-12.5) % Eosinophils % 1.6 (0.7-5.8) % Basophils % 1.2 (0.1-1.2) % Absolute Granulocytes 4.14 (1.56-6.13) x10^3/uL Basophils # 0.09 H (0.01-0.08) x10^3/uL Sodium (135-145) mmol/L Potassium (3.5-5.1) mmol/L Chloride (98-107) mmol/L Carbon Dioxide (22-30) mmol/L Anion Gap (5-15) MEQ/L BUN (7-17) mg/dL Creatinine (0.52-1.04) mg/dL Estimated GFR ML/MIN Glucose (74-106) mg/dL Calcium (8.4-10.2) mg/dL Total Bilirubin (0.2-1.3) mg/dL AST (14-36) U/L ALT (0-35) U/L Alkaline Phosphatase (38-126) U/L Serum Total Protein (6.3-8.2) g/dL Albumin (3.5-5.0) g/dL Amylase (30-110) U/L Lipase (23-300) U/L Urine Color (Yellow) Urine Appearance (Clear) Urine pH (4.6-8.0) Ur Specific [place] (1.005-1.030) Urine Protein (Negative) Urine Glucose (UA) (Negative) mg/dL Urine Ketones (Negative) Urine Blood (Negative) Urine Nitrite (Negative) Urine Bilirubin (Negative) Urine Urobilinogen (0.2) mg/dL Ur Leukocyte Esterase (Negative) U Hyaline Cast (Auto) (0-2) /LPF Urine Microscopic RBC (0-5) /HPF Urine Microscopic WBC (0-5) /HPF Ur Epithelial Cells (None Seen) /HPF Calcium Oxalate Crystal (None Seen) /HPF Urine Bacteria (None Seen) /HPF Urine Culture Reflexed (NO) Urine Opiates Level (NEGATIVE) Ur Methadone (NEGATIVE) Urine Barbiturates (NEGATIVE) Ur Phencyclidine (PCP) (NEGATIVE) Urine Amphetamine (NEGATIVE) U Benzodiazepine Level (NEGATIVE) Urine Cocaine (NEGATIVE) Urine Marijuana (THC) (NEGATIVE) - Progress Progress: improved, pain not gone completely, re-examined Progress Note: 07/06/24 21:12 My medical decision making and the assignment of moderate complexity to this patient's medical issue today is based on review of the patient's past medical history, review the patient's medication list, reviewed patient drug allergy list, history present illness and physical findings on examination. The workup today includes placement of intravenous line, infusion of normal saline solution, Zofran, Dilaudid and Protonix. In addition we will order a CBC, CMP, amylase, lipase, urinalysis, urine drug screen, and CT scan of the abdomen pelvis without contrast. Differential diagnosis includes but is not limited to muscle skeletal pain, acute pancreatitis, colitis, diverticulitis 07/06/24 22:48 I interpreted the patient's laboratory data results. The potassium is slightly low at 3.3. The CO2 is slightly low at 20 and the anion gap is slightly elevated at 20. Patient's transaminase levels are mildly elevated. The patient's pancreas enzymes are within normal limits. Patient has trace ketones in her urine which should resolve with the 2 L of crystalloid we will be providing her. She also has a urinary tract infection and we will give her 1 g of intravenous Rocephin. CT scan of the abdomen pelvis without contrast was interpreted by the radiologist. It was compared to similar study dated 06/09/2024. I reviewed the impression. The impression states pancreatitis improved/healed. Stable fatty liver. Remaining CT scan of the abdomen pelvis without contrast is negative. 07/06/24 22:57 Counseled pt/family regarding: lab results, diagnosis, need for follow-up, rad results Medical Desision Making - Independent Historian Additional History obtained from: Relative/friend - Diagnostic Testing Diagnostic test were ordered, analyzed, and reviewed by me: Yes Radiological Interpretation: Reviewed by me, Teleradiologist Report - Risk of complications The pt has a mod risk of morbidity or mortality based on: Need for prescription drug management - Departure Departure Disposition: Home Clinical Impression: Abdominal pain, Elevated liver transaminase level, Vomiting, Hypokalemia, UTI (urinary tract infection) Condition: Stable Critical Care Time: No Referrals: DOCTOR,NO FAMILY [Primary Care Provider] - Follow up/PCP as directed Additional Instructions: Drink plenty of clear liquids before advancing your diet. Avoid fatty greasy spicy foods. Call your primary care provider and specialist tomorrow, 024, to make arrangements for follow-up appointment for further evaluation and management. Avoid alcohol of all kinds to help avoid bringing on the same symptoms Prescriptions: Ondansetron ODT 4 MG [Zofran Odt 4 mg] 4 mg PO Q6H PRN PRN #10 tablet PRN Reason: Vomiting Cephalexin Mh 500 mg [Keflex 500 mg] 500 mg PO TID #21 cap
[2024-07-06 21:00] VITALS: RESP 16; TEMP 98
[2024-07-06 21:37] LABS: Absolute Neutrophil Ct (ANC) 4.14 x10^3/uL (1.56-6.13); BASOPHIL % 1.2 % (0.1-1.2); Basophil (Absolute #) 0.09 x10^3/uL (0.01-0.08); Eosinophil % 1.6 % (0.7-5.8); Eosinophil (Absolute #) 0.12 x10^3/uL (0.04-0.36); Hematocrit 44.2 % (34.1-44.9); Hemoglobin 14.9 g/dL (11.2-15.7); IMMATURE GRAN # 0.02 x10^3u/L (0.001-0.031); IMMATURE GRAN % 0.3 % (0.001-0.429); Lymphocyte (Absolute #) 2.71 x10^3/uL (1.18-3.74); Lymphocytes % 35.1 % (19.3-51.7); Mean Cell Volume 88.6 fL (79.4-94.8); Mean Corpuscular Hemoglobin 29.9 pg (25.6-32.2); Mean Corpuscular Hgb Concent. 33.7 g/dL (32.2-35.5); Mean Platelet Volume 9.2 fL (9.4-12.3); Monocyte (Absolute #) 0.64 x10^3/uL (0.24-0.86); Monocytes % 8.3 % (4.7-12.5); Neutrophil % 53.5 % (34.0-71.1); Platelet Count 507 x10^3/uL (182-369); Red Blood Count 4.99 x10^6/uL (3.93-5.22); Red Cell Distribution Width 12.3 % (11.7-14.4); White Blood Count 7.7 x10^3/uL (3.98-10.04)
[2024-07-06] MEDS ORDERED: PROTONIX 40 MG IV IV ONE (21:40)
[2024-07-06] MEDS ORDERED: Hydromorphone 1 mg/ml Injection ONE (21:40)
[2024-07-06] MEDS ORDERED: Zofran 4 MG/2 ML VIAL ONE (21:40)
[2024-07-06] MEDS ORDERED: Sodium Chloride 0.9% 1000 ML 1,000 ML ONE (21:41)
[2024-07-06] MEDS: Sodium Chloride 0.9% 1000 ML 1,000 ML IV STA (21:42)
[2024-07-06] MEDS: Zofran 4 MG/2 ML VIAL IV ONE (21:45)
[2024-07-06] MEDS: PROTONIX 40 MG IV IV ONE (21:46)
[2024-07-06] MEDS: Hydromorphone 1 mg/ml Injection IV ONE (21:48)
[2024-07-06 21:51] LABS: ALBUMIN 4.1 g/dL (3.5-5.0); ANION GAP 20.8 MEQ/L (5-15); BILIRUBIN,TOTAL 0.6 mg/dL (0.2-1.3); Creatinine 1 0.64 mg/dL (0.52-1.04); EST GLOMERULAR FILTRATION RATE 118.9 ML/MIN; Potassium 3.3 mmol/L (3.5-5.1); Total Protein 7.7 g/dL (6.3-8.2)
[2024-07-06] MEDS ORDERED: Klor Con ONE (22:28)
[2024-07-06] MEDS: Klor Con PO ONE (22:29)
[2024-07-06 22:52] LABS: Appearance Turbid (Clear); Bilirubin Small (Negative); Blood Negative (Negative); Epithelial Cells Many /HPF (None Seen); Glucose, Urine Negative (Negative); Ketones Trace (Negative); Leukocyte Esterase Moderate (Negative); Nitrite Negative (Negative); Ph 5.5 (4.6-8.0); Protein,Urine Dip 30 (Negative); RBC 0-2 /HPF (0-5); Specific Gravity 1.025 (1.005-1.030)
[2024-07-06 22:53] LABS: Amphetamine,Urine NEGATIVE (NEGATIVE); Bacteria Moderate /HPF (None Seen); Barbiturate,Urine NEGATIVE (NEGATIVE); Benzodiazepine,Urine NEGATIVE (NEGATIVE); Cocaine,Urine NEGATIVE (NEGATIVE); Methadone,Urine NEGATIVE (NEGATIVE); Opiate,Urine POSITIVE (NEGATIVE); PCP,Urine NEGATIVE (NEGATIVE); THC,Urine NEGATIVE (NEGATIVE)
[2024-07-06 22:54] LABS: Hyaline Casts None Seen /LPF (0-2)
[2024-07-06] MEDS ORDERED: Lactated Ringers 1,000 ML IV ONE (23:12)
[2024-07-06] MEDS ORDERED: Compazine 10 MG/2 ML ONE (23:12)
[2024-07-06] MEDS ORDERED: ROCEPHIN 1 GM / 100 ML NaCl 1 GM/100 ML IVPB IV ONE (23:12)
[2024-07-06] MEDS: Compazine 10 MG/2 ML IV ONE (23:16)
[2024-07-06] MEDS: ROCEPHIN 1 GM / 100 ML NaCl 1 GM/100 ML IVPB IV ONE (23:16)
[2024-07-06] MEDS: Lactated Ringers 1,000 ML IV ONE (23:37)
[2024-07-07 01:20] VITALS: BP 104/79; PULSE 89; O2SAT 98
--- NOTE | 2024-07-07 09:01 | XRAY ---
Indication: Left upper quadrant/left flank pain. Multiple contiguous axial images obtained through the abdomen and pelvis without contrast. Comparison: June 09, 2024 Lung bases clear. Heart is not enlarged. Noncontrasted stomach and bowel loops appear nonobstructed with normal appendix. Previous pancreatic tail pancreatitis has resolved. Stable diffuse fatty liver and cholecystectomy. No free fluid/air. Remaining liver, pancreas, spleen, adrenal glands, kidneys, ureters, bladder, uterus, and aorta are unremarkable for noncontrast exam. Osseous structures intact Impression: Again diffuse fatty liver. No new/acute findings on this noncontrast exam.
== END 2024-07-07 01:18 | disposition home or self-care (01) ==
LOC: ED 20:07
DX: R10.9 Unspecified abdominal pain (principal); R74.01 Elevation of levels of liver transaminase levels; R11.2 Nausea with vomiting, unspecified; E87.6 Hypokalemia; N39.0 Urinary tract infection, site not specified; Z72.0 Tobacco use
CPT/HCPCS: 36000; 36415; 74176; 80053; 80307; 81001; 82150; 83690; 85025; 87086; 96360; 96365; 96374; 96375; 99284; J0696; J1170; J2405; A9270-GY

== ENCOUNTER 2024-07-12 13:03 | Emergency (ER) | payer BC ==
[2024-07-12 15:24] VITALS: RESP 18; TEMP 97.3
--- NOTE | 2024-07-12 16:09 | ERPHSYRPT ---
- History of Present Illness Time Seen by Provider: 07/12/24 16:07 Historian: patient, family Exam Limitations: no limitations Patient Subjective Stated Complaint: PT CO PAIN TO ABD WITH NAUSEA AND VOMITING TODAY, SHE STATES SHE HAD ONE LOOSE STOOL, HAS HX OF PANCREATITIS, SHE IS TO GET A CT SCAN KRISTEN Triage Nursing Assessment: PT ALERT, WALKED IN, RESP EASY, SKIN W/D/P, Physician History: pt has Hx chronic pancreatitis and similar symptoms today - takes enzymes - it all began with GB but that has been removed. Discussed risks/benefits of testing and Tx with pt and family including CBC, CMP, Wilma, Lipase, Lactate, UA, HCG, and CT and IV with Dilaudid and Zofran and they wish to proceed and these are ordered. Results discussed. Timing/Duration: today Activities at Onset: none Quality: cramping, fullness, sharpness, throbbing Abdominal Pain Onset Location: LUQ Pain Radiation: LUQ, back Severity of Pain-Max: moderate Severity of Pain-Current: moderate Modifying Factors: Improves With: nothing Associated Symptoms: nausea, vomiting Previous symptoms: same symptoms as today Allergies/Adverse Reactions: No Known Drug Allergies Allergy (Verified 07/12/24 15:16) Home Medications: Ondansetron ODT 4 MG [Zofran Odt 4 mg] 1 ea QID 07/12/24 [History] Hx Tetanus, Diphtheria Vaccination/Date Given: No Hx Influenza Vaccination/Date Given: No Hx Pneumococcal Vaccination/Date Given: No Immunizations Up to Date: Yes Travel Risk - International Travel Have you traveled outside of the country in past 3 weeks: No - Emerging Infectious Disease Are you exhibiting symptoms associated with any current EIDs: Yes Symptoms: Abdominal Pain, Vomitting - Review of Systems Constitutional: No Fever, No Chills Eyes: No Symptoms Ears, Nose, & Throat: No Symptoms Respiratory: No Cough, No Dyspnea Cardiac: No Chest Pain, No Edema, No Syncope Abdominal/Gastrointestinal: Abdominal Pain, Nausea, Vomiting, No Diarrhea Genitourinary Symptoms: No Dysuria Musculoskeletal: No Back Pain, No Neck Pain Skin: No Rash Neurological: No Dizziness, No Focal Weakness, No Sensory Changes Psychological: No Symptoms Endocrine: No Symptoms Hematologic/Lymphatic: No Symptoms Immunological/Allergic: No Symptoms All Other Systems: Reviewed and Negative - Past Medical History Pertinent Past Medical History: Yes Neurological History: Migraines ENT History: No Pertinent History Cardiac History: No Pertinent History Respiratory History: No Pertinent History Endocrine Medical History: No Pertinent History Musculoskeletal History: No Pertinent History GI Medical History: No Pertinent History, Gallbladder Disease, Pancreatitis History: No Pertinent History Psycho-Social History: Anxiety, Bipolar, Depression, Other Female Reproductive Disorders: No Pertinent History Other Medical History: multiple personality disorder - Past Surgical History Past Surgical History: Yes Neuro Surgical History: No Pertinent History Cardiac: No Pertinent History Respiratory: No Pertinent History Gastrointestinal: Cholecystectomy Genitourinary: No Pertinent History Musculoskeletal: No Pertinent History Female Surgical History: No Pertinent History Significant Family History: hypertension (father) - Female History Hx Last Menstrual Period: WEEK AGO Hx Now: No - Social History Smoking Status: Never smoker How long have you smoked: years Exposure to second hand smoke: No Drug Use: none Patient Lives Alone: No - Social Determinants of Health Will the patient participate in the screening: Yes Do you worry about a steady place to live?: No Do you have any problems with any of the following?: No known problems In the past 12 months,have you had to go without utilities?: No Transportation Issues: No Has anyone in your support network made you feel unsafe?: No Have you or anyone in your house had to go without enough: No - Nursing Vital Signs Nursing Vital Signs: Initial Vital Signs Temperature 97.3 F 07/12/24 15:23 Pulse Rate 78 07/12/24 15:23 Respiratory Rate 18 07/12/24 15:23 Blood Pressure 135/74 07/12/24 15:23 O2 Sat by Pulse Oximetry 97 07/12/24 15:23 Pain Scale Pain Intensity 6 - Physical Exam General Appearance: no apparent distress, alert Eye Exam: PERRL/EOMI, eyes nml inspection Ears, Nose, Throat Exam: normal ENT inspection, pharynx normal, moist mucous membranes Neck Exam: normal inspection, non-tender, supple, full range of motion Respiratory Exam: normal breath sounds, lungs clear, No respiratory distress Cardiovascular Exam: regular rate/rhythm, normal heart sounds Gastrointestinal/Abdomen Exam: soft, tenderness, guarding, No mass, No pulsatile mass, No rebound Pelvic Exam: deferred Rectal Exam: deferred Back Exam: normal inspection, normal range of motion, No CVA tenderness, No vertebral tenderness Extremity Exam: normal inspection, normal range of motion, pelvis stable Neurologic Exam: alert, oriented x 3, cooperative, normal mood/affect, nml cerebellar function, sensation nml, No motor deficits Skin Exam: normal color, warm, dry SpO2 Interpretation: normal SpO2: 97 O2 Delivery: Room Air - Course Nursing assessment & vital signs reviewed: Yes - CT Exams Abdomen/Pelvis CT Interpretation: Tele-radiologist Report, Other (hepatomegally/steatosis; nonspecific bowel gas) Ordered Tests: Active Orders 24 hr Category Date Time Status ABDOMEN AND PELVIS W/0 CONTRAS [CT] Stat Exams 07/12/24 16:33 Completed AMYLASE Stat Lab 07/12/24 16:10 Completed CBC W DIFF Stat Lab 07/12/24 16:10 Completed CMP Stat Lab 07/12/24 16:10 Completed CULTURE,URINE Stat Lab 07/12/24 16:45 Received HCG QUALITATIVE, SERUM Stat Lab 07/12/24 16:10 Completed LIPASE Stat Lab 07/12/24 16:10 Completed Lactic Acid Stat Lab 07/12/24 10:25 Completed Lactic Acid Stat Lab 07/12/24 18:34 Completed UA W/RFX UR CULTURE Stat Lab 07/12/24 16:45 Completed Medication Summary Discontinued Medications Generic Name Dose Route Start Last Admin Trade Name Freq PRN Reason Stop Dose Admin Hydromorphone HCl 1 mg 07/12/24 16:18 07/12/24 16:25 Hydromorphone 1 Mg/1ml Inj IV 07/12/24 16:19 1 mg STAT ONE Administration Hydromorphone HCl Confirm 07/12/24 16:22 Hydromorphone 1 Mg/1ml Inj Administered 07/12/24 16:23 Dose 1 mg .ROUTE .STK-MED ONE Sodium Chloride Confirm 07/12/24 16:46 Sodium Chloride 0.9% 1000 Ml Administered 07/12/24 16:47 Dose 1,000 mls @ ud .ROUTE .STK-MED ONE Sodium Chloride 1,000 mls @ 999 mls/hr 07/12/24 16:48 07/12/24 17:51 Sodium Chloride 0.9% 1000 Ml IV 07/12/24 17:48 Infused .Q1H1M STA Infusion Ondansetron HCl 4 mg 07/12/24 16:17 07/12/24 16:24 Ondansetron Hcl 4 Mg/2 Ml Vial IV 07/12/24 16:18 4 mg STAT ONE Administration Ondansetron HCl Confirm 07/12/24 16:22 Ondansetron Hcl 4 Mg/2 Ml Vial Administered 07/12/24 16:23 Dose 4 mg .ROUTE .STK-MED ONE Promethazine HCl 25 mg 07/12/24 18:39 07/12/24 18:41 Promethazine Hcl 25 Mg Tablet PO 07/12/24 18:40 Not Given STAT ONE Promethazine HCl 25 mg 07/12/24 18:41 07/12/24 18:48 Promethazine Hcl 25 Mg Supp.Rect RC 07/12/24 18:42 25 mg STAT ONE Administration Promethazine HCl Confirm 07/12/24 18:45 Promethazine Hcl 25 Mg Supp.Rect Administered 07/12/24 18:46 Dose 25 mg RC .STK-MED ONE Lab/Rad Data: Laboratory Result Diagrams 07/12/24 16:10 07/12/24 16:10 Laboratory Results 07/12/24 07/12/24 07/12/24 Range/Units 18:34 16:45 16:10 WBC (3.98-10.04) x10^3/uL RBC (3.93-5.22) x10^6/uL Hgb (11.2-15.7) g/dL Hct (34.1-44.9) % MCV (79.4-94.8) fL MCH (25.6-32.2) pg MCHC (32.2-35.5) g/dL RDW (11.7-14.4) % Plt Count (182-369) x10^3/uL MPV (9.4-12.3) fL Gran % (34.0-71.1) % Immature Gran % (Auto) (0.001-0.429) % Nucleat RBC Rel Count (0.00-0.2) % Eos # (Auto) (0.04-0.36) x10^3/uL Immature Gran # (Auto) (0.001-0.031) x10^3u/L Absolute Lymphs (auto) (1.18-3.74) x10^3/uL Absolute Monos (auto) (0.24-0.86) x10^3/uL Absolute Nucleated RBC (0.00-0.012) x10^3u/L Lymphocytes % (19.3-51.7) % Monocytes % (4.7-12.5) % Eosinophils % (0.7-5.8) % Basophils % (0.1-1.2) % Absolute Granulocytes (1.56-6.13) x10^3/uL Basophils # (0.01-0.08) x10^3/uL Sodium (135-145) mmol/L Potassium (3.5-5.1) mmol/L Chloride (98-107) mmol/L Carbon Dioxide (22-30) mmol/L Anion Gap (5-15) MEQ/L BUN (7-17) mg/dL Creatinine (0.52-1.04) mg/dL Estimated GFR ML/MIN Glucose (74-106) mg/dL Lactic Acid 1.6 (0.4-2.0) Calcium (8.4-10.2) mg/dL Total Bilirubin (0.2-1.3) mg/dL AST (14-36) U/L ALT (0-35) U/L Alkaline Phosphatase (38-126) U/L Serum Total Protein (6.3-8.2) g/dL Albumin (3.5-5.0) g/dL Amylase (30-110) U/L Lipase (23-300) U/L Serum HCG, Qual NEGATIVE (NEGATIVE) Urine Color [place] A (Yellow) Urine Appearance Turbid A (Clear) Urine pH 5.0 (4.6-8.0) Ur Specific [place] >=1.030 A (1.005-1.030) Urine Protein 100 A (Negative) Urine Glucose (UA) Negative (Negative) mg/dL Urine Ketones Negative (Negative) Urine Blood Negative (Negative) Urine Nitrite Positive A (Negative) Urine Bilirubin Moderate A (Negative) Urine Urobilinogen 1.0 A (0.2) mg/dL Ur Leukocyte Esterase Trace A (Negative) U Hyaline Cast (Auto) 6-10 A (0-2) /LPF Urine Microscopic RBC 3-5 (0-5) /HPF Urine Microscopic WBC 3-5 (0-5) /HPF Ur Epithelial Cells Moderate A (None Seen) /HPF Urine Bacteria None Seen (None Seen) /HPF Urine Culture Reflexed YES (NO) 07/12/24 07/12/24 07/12/24 Range/Units 16:10 16:10 10:25 WBC 9.1 (3.98-10.04) x10^3/uL RBC 5.04 (3.93-5.22) x10^6/uL Hgb 14.8 (11.2-15.7) g/dL Hct 44.5 (34.1-44.9) % MCV 88.3 (79.4-94.8) fL MCH 29.4 (25.6-32.2) pg MCHC 33.3 (32.2-35.5) g/dL RDW 13.2 (11.7-14.4) % Plt Count 326 (182-369) x10^3/uL MPV 9.8 (9.4-12.3) fL Gran % 68.1 (34.0-71.1) % Immature Gran % (Auto) 0.4 (0.001-0.429) % Nucleat RBC Rel Count 0.0 (0.00-0.2) % Eos # (Auto) 0.06 (0.04-0.36) x10^3/uL Immature Gran # (Auto) 0.04 H (0.001-0.031) x10^3u/L Absolute Lymphs (auto) 2.11 (1.18-3.74) x10^3/uL Absolute Monos (auto) 0.60 (0.24-0.86) x10^3/uL Absolute Nucleated RBC 0.00 (0.00-0.012) x10^3u/L Lymphocytes % 23.2 (19.3-51.7) % Monocytes % 6.6 (4.7-12.5) % Eosinophils % 0.7 (0.7-5.8) % Basophils % 1.0 (0.1-1.2) % Absolute Granulocytes 6.18 H (1.56-6.13) x10^3/uL Basophils # 0.09 H (0.01-0.08) x10^3/uL Sodium 139 (135-145) mmol/L Potassium 4.3 (3.5-5.1) mmol/L Chloride 100 (98-107) mmol/L Carbon Dioxide 25 (22-30) mmol/L Anion Gap 17.5 H (5-15) MEQ/L BUN 8 (7-17) mg/dL Creatinine 0.70 (0.52-1.04) mg/dL Estimated GFR 116.3 ML/MIN Glucose 132 H (74-106) mg/dL Lactic Acid 2.6 H (0.4-2.0) Calcium 9.6 (8.4-10.2) mg/dL Total Bilirubin 1.30 (0.2-1.3) mg/dL AST 549 H (14-36) U/L ALT 223 H (0-35) U/L Alkaline Phosphatase 301 H (38-126) U/L Serum Total Protein 8.2 (6.3-8.2) g/dL Albumin 4.4 (3.5-5.0) g/dL Amylase 99 (30-110) U/L Lipase 140 (23-300) U/L Serum HCG, Qual (NEGATIVE) Urine Color (Yellow) Urine Appearance (Clear) Urine pH (4.6-8.0) Ur Specific [place] (1.005-1.030) Urine Protein (Negative) Urine Glucose (UA) (Negative) mg/dL Urine Ketones (Negative) Urine Blood (Negative) Urine Nitrite (Negative) Urine Bilirubin (Negative) Urine Urobilinogen (0.2) mg/dL Ur Leukocyte Esterase (Negative) U Hyaline Cast (Auto) (0-2) /LPF Urine Microscopic RBC (0-5) /HPF Urine Microscopic WBC (0-5) /HPF Ur Epithelial Cells (None Seen) /HPF Urine Bacteria (None Seen) /HPF Urine Culture Reflexed (NO) - Progress Progress: improved, re-examined Progress Note: 07/12/24 20:33 pt feels much better after IVF and tolerating fluids now - discussed results on CT and elevated LFTs - I have advised the pt and family that we have not determined the exact cause of her pain and vomiting even though it presents to her similar to prior pancreatitis and that additional pathology may be evolving undetected, - pt/family prefers outpt DC with f/u rather than admission in hosp or further w/u in ER and they have the capacity to ,make that choice. 07/12/24 20:39 re-exam nontender without peritoneal signs. 07/12/24 20:39 07/12/24 20:47 pt and family also wish levoquin for UTI after discussion of risks/benefits and will f/u PMD Counseled pt/family regarding: lab results, diagnosis, need for follow-up, rad results Medical Desision Making - Independent Historian Additional History obtained from: Family - Discussion of managment Reviewed:: Test results, Need for additional workup Agreed on:: Treatment plan, need for follow-up - Diagnostic Testing Diagnostic test were ordered, analyzed, and reviewed by me: Yes Radiological Interpretation: Interpreted by me, Reviewed by me, Teleradiologist Report - Risk of complications The pt has a mod risk of morbidity or mortality based on: Need for prescription drug management The pt has a high risk of morbidity or mortality based on: Decision regarding hospitilization or escalation of hosp level of care - Departure Departure Disposition: Home Clinical Impression: Vomiting with nausea, not intractable, Abdominal pain of unknown etiology, Elevated LFTs, History of chronic pancreatitis, Nausea & vomiting, UTI (urinary tract infection) Condition: Good Critical Care Time: No Referrals: DOCTOR,NO FAMILY [Primary Care Provider] - Follow up/PCP as directed Instructions: Severe Abdominal Pain, Adult (DC), Chronic pancreatitis, Pancreatitis - Discharge instructions, Urinary Tract Infection, Adult ED Additional Instructions: followup with your Drs as planned tomorrow for further workup and treatment. Return meantime if increased pain, vomiting, dizziness, fever or any other concerns. Prescriptions: Levofloxacin [Levofloxacin 250MG Tablet] 250 mg PO DAILY #10 tab
[2024-07-12] MEDS ORDERED: Hydromorphone 1 mg/ml Injection ONE ×2 (16:22→20:43)
[2024-07-12] MEDS ORDERED: Zofran 4 MG/2 ML VIAL ONE (16:22)
[2024-07-12 16:23] LABS: Absolute Neutrophil Ct (ANC) 6.18 x10^3/uL (1.56-6.13); Basophil (Absolute #) 0.09 x10^3/uL (0.01-0.08); Eosinophil % 0.7 % (0.7-5.8); Eosinophil (Absolute #) 0.06 x10^3/uL (0.04-0.36); Hematocrit 44.5 % (34.1-44.9); Hemoglobin 14.8 g/dL (11.2-15.7); IMMATURE GRAN # 0.04 x10^3u/L (0.001-0.031); IMMATURE GRAN % 0.4 % (0.001-0.429); Lymphocyte (Absolute #) 2.11 x10^3/uL (1.18-3.74); Lymphocytes % 23.2 % (19.3-51.7); Mean Cell Volume 88.3 fL (79.4-94.8); Mean Corpuscular Hemoglobin 29.4 pg (25.6-32.2); Mean Corpuscular Hgb Concent. 33.3 g/dL (32.2-35.5); Mean Platelet Volume 9.8 fL (9.4-12.3); Monocytes % 6.6 % (4.7-12.5); Neutrophil % 68.1 % (34.0-71.1); Platelet Count 326 x10^3/uL (182-369); Red Blood Count 5.04 x10^6/uL (3.93-5.22); Red Cell Distribution Width 13.2 % (11.7-14.4); White Blood Count 9.1 x10^3/uL (3.98-10.04)
[2024-07-12] MEDS: Zofran 4 MG/2 ML VIAL IV ONE (16:24)
[2024-07-12 16:25] LABS: HCG SERUM TEST NEGATIVE (NEGATIVE)
[2024-07-12] MEDS: Hydromorphone 1 mg/ml Injection IV ONE ×2 (16:25→20:45)
[2024-07-12 16:29] LABS: ALBUMIN 4.4 g/dL (3.5-5.0); ANION GAP 17.5 MEQ/L (5-15); BILIRUBIN,TOTAL 1.3 mg/dL (0.2-1.3); Calcium 9.6 mg/dL (8.4-10.2); Creatinine 1 0.7 mg/dL (0.52-1.04); EST GLOMERULAR FILTRATION RATE 116.3 ML/MIN; Potassium 4.3 mmol/L (3.5-5.1); Total Protein 8.2 g/dL (6.3-8.2)
[2024-07-12] MEDS ORDERED: Sodium Chloride 0.9% 1000 ML 1,000 ML ONE (16:46)
[2024-07-12] MEDS: Sodium Chloride 0.9% 1000 ML 1,000 ML IV STA (16:49)
[2024-07-12 17:05] LABS: Appearance Turbid (Clear); Bacteria None Seen /HPF (None Seen); Bilirubin Moderate (Negative); Blood Negative (Negative); Epithelial Cells Moderate /HPF (None Seen); Glucose, Urine Negative (Negative); Ketones Negative (Negative); Leukocyte Esterase Trace (Negative); Nitrite Positive (Negative); Protein,Urine Dip 100 (Negative); Specific Gravity >=1.030 (1.005-1.030)
--- NOTE | 2024-07-12 17:28 | XRAY ---
CLINICAL HISTORY: Abd pain with Hx pancreatitis COMPARISON: Comparison is made with previous imaging study dated 07/06/2024. TECHNIQUE: Non-contrast CT of the abdomen and pelvis was performed, with the following protocol: axial images, and reconstructed coronal and sagittal images. No intravenous contrast was administered. One of the following dose reduction techniques was utilized for this exam: Automated exposure control, adjustment of the mA and/or kV according to patient size, and use of iterative reconstruction. FINDINGS: Scan through the lower chest reveals unremarkable lung bases and heart. Abdomen: Liver: Enlarged in size 20 cm in right lobe span, preserved shape, with severe hepatic steatosis. No focal lesions, cysts, or masses were identified. Gallbladder and Biliary System: Cholecystectomy clips. Non-dilated biliary tract. Pancreas: Pancreatic head, body, and tail are visualized and appear normal in size and density. No pancreatic masses or calcifications were noted. Spleen: Normal in size, shape, and density. No splenic lesions or masses were identified. Kidneys and Adrenal Glands: Both kidneys are normal in size, shape, and position. Cortical thickness is within normal limits. No renal calculi or hydronephrosis. Adrenal glands are unremarkable. Appendix: The appendix is normal in size without john appendiceal fat stranding and without an appendicolith. No evidence of appendiceal abscess or perforation. Pelvis: Urinary Bladder: Normal in contour and wall thickness. No intraluminal lesions. Uterus: Normal in size and contour. No masses or abnormal thickening. Ovaries: Not well visualized but no gross abnormalities noted. Vagina: Normal in contour and wall thickness. Cervix: No evidence of mass or abnormal thickening. Peritoneal and Retroperitoneal Structures: No free fluid or abnormal fluid collections were identified within the abdomen or pelvis. No lymphadenopathy was noted. Bowel: Mild distension of proximal jejunal loops up to 2.6 cm, without signs of obstruction. Nonspecific findings. Increased fat content in the [place] of the colon. No evidence of bowel obstruction or wall thickening. Bones and Soft Tissues: Pelvic bones and soft tissues are unremarkable. No fractures or abnormal masses were identified. IMPRESSION: 1. Hepatomegaly with severe steatosis, stable. 2. Mild distension of proximal jejunal loops up to 2.6 cm, without signs of obstruction. Nonspecific findings, correlate with clinical presentation. 3. No obvious acute abdominal or pelvic abnormality. Electronically Signed by: Sherrie Joy MD. (07/12/2024 17:23:14 EDT)
[2024-07-12 17:51] VITALS: PULSE 114
[2024-07-12] MEDS: PHENERGAN 25 MG PO ONE ×2 (18:41→20:51)
[2024-07-12] MEDS ORDERED: PROMETHEGAN RC ONE ×2 (18:45→20:48)
[2024-07-12] MEDS: PROMETHEGAN RC ONE ×2 (18:48→20:52)
[2024-07-12 19:29] VITALS: O2SAT 97
[2024-07-12 20:41] VITALS: BP 156/116
[2024-07-12] MEDS ORDERED: Levofloxacin 250MG Tablet ONE (20:44)
[2024-07-12] MEDS: Levofloxacin 250MG Tablet PO ONE (20:45)
== END 2024-07-12 20:59 | disposition home or self-care (01) ==
LOC: ED 13:03
DX: N39.0 Urinary tract infection, site not specified (principal); R11.2 Nausea with vomiting, unspecified; R10.12 Left upper quadrant pain; R94.5 Abnormal results of liver function studies; Z87.19 Personal history of other diseases of the digestive system; Z79.899 Other long term (current) drug therapy
CPT/HCPCS: 36000; 36415; 74176; 80053; 81001; 82150; 83605; 83690; 84703; 85025; 87086; 96360; 96374; 96375; 99284; J1170; J2405; A9270-GY

== ENCOUNTER 2024-07-19 16:14 | Emergency (ER) | payer BC ==
[2024-07-19 16:29] VITALS: RESP 20; TEMP 96.7
[2024-07-19] MEDS ORDERED: Zofran 4 MG/2 ML VIAL ONE (16:39)
[2024-07-19] MEDS ORDERED: SUBLIMAZE 100 MCG/2 ML ONE (16:39)
--- NOTE | 2024-07-19 16:39 | ERPHSYRPT ---
- History of Present Illness Historian: patient Exam Limitations: no limitations Patient Subjective Stated Complaint: Vomiting Triage Nursing Assessment: Patient ambulated back to ED and transferred self to bed. Patient A+O X3. Patient's skin pink, warm and dry. Patient complains of left sided abdominal pain constant burning/stabbing pain 03/09 that started this am with N/V and diarrhea. Abdomen soft and round with BS X 4. Patient states she does have hx of chronic pancreatitis and is seeing a specialist in a couple of weeks. Timing/Duration: yesterday Activities at Onset: none Quality: burning, sharpness Abdominal Pain Onset Location: LUQ, epigastric Pain Radiation: no radiation Severity of Pain-Max: moderate Severity of Pain-Current: moderate Modifying Factors: Improves With: nothing Associated Symptoms: diarrhea, loss of appetite, nausea, vomiting, No back, No chest pain, No diaphoresis, No fever/chills, No headache, No heartburn, No shortness of breath Previous symptoms: same symptoms as today, recently seen Hx Tetanus, Diphtheria Vaccination/Date Given: No Hx Influenza Vaccination/Date Given: No Hx Pneumococcal Vaccination/Date Given: No Immunizations Up to Date: Yes <JOSEE RIOJAS - Last Filed: 07/19/24 18:52> <GEE SHORE - Last Filed: 07/19/24 19:10> - History of Present Illness Time Seen by Provider: 07/19/24 16:30 Physician History: 33yo f presents via private vehicle for vomiting and epigastric pain. Pt reports she started having cramping upper abdominal pain on 07/18, developed vomiting this AM that has been ongoing all day. Pt reports hx of chronic pancreatitis. Pt denies any bloody emesis, does endorse some non-bloody diarrhea today. Pt denies any cp or sob. Pt was seen in the ED 7d [employer] for similar sx, was diagnosed w/ UTI and treated w/ levofloxacin. Pt denies any recent alcohol use. Pt reports limited PO intake for the past 2 days. (JOSEE RIOJAS) Allergies/Adverse Reactions: No Known Drug Allergies Allergy (Verified 07/19/24 16:19) Travel Risk - International Travel Have you traveled outside of the country in past 3 weeks: No - Emerging Infectious Disease Are you exhibiting symptoms associated with any current EIDs: No Symptoms: Abdominal Pain, Vomitting <JOSEE RIOJAS - Last Filed: 07/19/24 18:52> - Review of Systems Constitutional: No Symptoms Respiratory: No Symptoms Cardiac: No Symptoms Abdominal/Gastrointestinal: Abdominal Pain, Nausea, Vomiting, Diarrhea, Appetite Changes, No Constipation, No Hematemesis, No Hematochezia Genitourinary Symptoms: Dysuria, No Frequency, No Hematuria <JOSEE RIOJAS Last Filed: 07/19/24 18:52> - Past Medical History Pertinent Past Medical History: Yes Neurological History: Migraines ENT History: No Pertinent History Cardiac History: No Pertinent History Respiratory History: No Pertinent History Endocrine Medical History: No Pertinent History Musculoskeletal History: No Pertinent History GI Medical History: No Pertinent History, Gallbladder Disease, Pancreatitis History: No Pertinent History Psycho-Social History: Anxiety, Bipolar, Depression, Other Female Reproductive Disorders: No Pertinent History Other Medical History: multiple personality disorder - Past Surgical History Past Surgical History: Yes Neuro Surgical History: No Pertinent History Cardiac: No Pertinent History Respiratory: No Pertinent History Gastrointestinal: Cholecystectomy Genitourinary: No Pertinent History Musculoskeletal: No Pertinent History Female Surgical History: No Pertinent History Significant Family History: hypertension (father) - Female History Hx Last Menstrual Period: yesterday Hx Now: No - Social History Smoking Status: Never smoker How long have you smoked: years Exposure to second hand smoke: No Drug Use: none Patient Lives Alone: No - Social Determinants of Health Will the patient participate in the screening: Yes Do you worry about a steady place to live?: No Do you have any problems with any of the following?: No known problems In the past 12 months,have you had to go without utilities?: No Transportation Issues: No Has anyone in your support network made you feel unsafe?: No Have you or anyone in your house had to go without enough: No <JOSEE RIOJAS - Filed: 07/19/24 18:52> - Physical Exam General Appearance: no apparent distress, alert Respiratory Exam: normal breath sounds, lungs clear, airway intact, No chest tenderness, No respiratory distress Cardiovascular Exam: normal heart sounds, tachycardia, capillary refill <2 sec Gastrointestinal/Abdomen Exam: soft, normal bowel sounds, tenderness (minimal epigastric tenderness), No distention, No guarding, No rebound SpO2 Interpretation: normal SpO2: 98 O2 Delivery: Room Air <JOSEE RIOJAS - Last Filed: 07/19/24 18:52> - Nursing Vital Signs Nursing Vital Signs: Initial Vital Signs Temperature 96.7 F 07/19/24 16:20 Pulse Rate 142 H 07/19/24 16:20 Respiratory Rate 20 07/19/24 16:20 Blood Pressure 136/111 07/19/24 16:20 O2 Sat by Pulse Oximetry 98 07/19/24 16:20 Pain Scale Pain Intensity 4 - Course EKG Interpreted by Me: RATE (121), Sinus Tach, Other (qtcb 453, no acute ST changes, not suggestive of acute ischemia) <JOSEE RIOJAS - Last Filed: 07/19/24 18:52> Ordered Tests: Active Orders 24 hr Category Date Time Status IV Insertion STAT Care 07/19/24 16:31 Active Telemetry q4h Care 07/19/24 17:20 Active ABDOMEN AND PELVIS W CONTRAST [CT] Stat Exams 07/19/24 16:32 Completed BMP Stat Lab 07/19/24 18:41 Completed CBC W DIFF Stat Lab 07/19/24 16:48 Completed CMP Stat Lab 07/19/24 16:48 Completed CULTURE,URINE Stat Lab 07/19/24 17:48 Received LIPASE Stat Lab 07/19/24 16:48 Completed TROPONIN Q4H Lab 07/19/24 16:48 Completed TROPONIN Q4H Lab 07/19/24 18:41 Received TROPONIN Q4H Lab 07/20/24 00:45 Ordered UA W/RFX UR CULTURE Stat Lab 07/19/24 17:48 Completed Urine Triage Profile Stat Lab 07/19/24 17:48 Completed Medication Summary Generic Name Dose Route Start Last Admin Trade Name Freq PRN Reason Stop Dose Admin Potassium Chloride/Sodium Chloride 1,000 mls @ 100 mls/hr 07/19/24 17:15 07/19/24 17:22 Sodium Chloride 0.45% W/ 20 Meq Kcl IV 08/18/24 17:14 Not Given .Q10H DANE Potassium Chloride 20 meq in 100 mls @ 50 mls/hr 07/19/24 17:20 07/19/24 17:24 Potassium Chloride 20 Meq In Water 100ml IV 07/19/24 19:19 50 mls/hr STAT ONE Administration Discontinued Medications Generic Name Dose Route Start Last Admin Trade Name Freq PRN Reason Stop Dose Admin Diphenhydramine HCl 25 mg 10/20/24 17:49 07/19/24 17:54 Diphenhydramine Hcl 50 Mg/Ml Vial IV 07/19/24 17:50 25 mg STAT ONE Administration Diphenhydramine HCl Confirm 07/19/24 17:52 Diphenhydramine Hcl 50 Mg/Ml Vial Administered 07/19/24 17:53 Dose 50 mg .ROUTE .STK-MED ONE Fentanyl Citrate 50 mcg 07/19/24 16:31 07/19/24 16:42 Fentanyl Citrate 100 Mcg/2 Ml* Vial IV 07/19/24 16:32 50 mcg STAT ONE Administration Fentanyl Citrate Confirm 07/19/24 16:39 Fentanyl Citrate 100 Mcg/2 Ml* Vial Administered 07/19/24 16:40 Dose 100 mcg .ROUTE .STK-MED ONE Sodium Chloride 1,000 mls @ 999 mls/hr 07/19/24 16:31 07/19/24 17:48 Sodium Chloride 0.9% 1000 Ml IV 07/19/24 17:31 Infused .Q1H1M STA Infusion Sodium Chloride Confirm 07/19/24 16:40 Sodium Chloride 0.9% 1000 Ml Administered 07/19/24 16:41 Dose 1,000 mls @ ud .ROUTE .STK-MED ONE Potassium Chloride Confirm 07/19/24 17:21 Potassium Chloride 20 Meq In Water 100ml Administered 07/19/24 17:22 Dose 100 mls @ ud IV .STK-MED ONE Ondansetron HCl 4 mg 07/19/24 16:31 07/19/24 16:42 Ondansetron Hcl 4 Mg/2 Ml Vial IV 07/19/24 16:32 4 mg STAT ONE Administration Ondansetron HCl Confirm 07/19/24 16:39 Ondansetron Hcl 4 Mg/2 Ml Vial Administered 07/19/24 16:40 Dose 4 mg .ROUTE .STK-MED ONE Lab/Rad Data: Laboratory Result Diagrams 07/19/24 16:48 07/19/24 18:41 Laboratory Results 07/19/24 07/19/24 07/19/24 Range/Units 18:41 17:48 17:48 WBC (3.98-10.04) x10^3/uL RBC (3.93-5.22) x10^6/uL Hgb (11.2-15.7) g/dL Hct (34.1-44.9) % MCV (79.4-94.8) fL MCH (25.6-32.2) pg MCHC (32.2-35.5) g/dL RDW (11.7-14.4) % Plt Count (182-369) x10^3/uL MPV (9.4-12.3) fL Gran % (34.0-71.1) % Immature Gran % (Auto) (0.001-0.429) % Nucleat RBC Rel Count (0.00-0.2) % Eos # (Auto) (0.04-0.36) x10^3/uL Immature Gran # (Auto) (0.001-0.031) x10^3u/L Absolute Lymphs (auto) (1.18-3.74) x10^3/uL Absolute Monos (auto) (0.24-0.86) x10^3/uL Absolute Nucleated RBC (0.00-0.012) x10^3u/L Lymphocytes % (19.3-51.7) % Monocytes % (4.7-12.5) % Eosinophils % (0.7-5.8) % Basophils % (0.1-1.2) % Absolute Granulocytes (1.56-6.13) x10^3/uL Basophils # (0.01-0.08) x10^3/uL Sodium 137 (135-145) mmol/L Potassium 3.5 (3.5-5.1) mmol/L Chloride 98 (98-107) mmol/L Carbon Dioxide 30 (22-30) mmol/L Anion Gap 12.8 (5-15) MEQ/L BUN 3 L (7-17) mg/dL Creatinine 0.56 (0.52-1.04) mg/dL Estimated GFR 122.7 ML/MIN Glucose 142 H (74-106) mg/dL Calcium 8.6 (8.4-10.2) mg/dL Total Bilirubin (0.2-1.3) mg/dL AST (14-36) U/L ALT (0-35) U/L Alkaline Phosphatase (38-126) U/L Troponin I (0.000-0.033) ng/mL Serum Total Protein (6.3-8.2) g/dL Albumin (3.5-5.0) g/dL Lipase (23-300) U/L Urine Color Yellow (Yellow) Urine Appearance Clear (Clear) Urine pH 7.5 (4.6-8.0) Ur Specific [place] >=1.030 A (1.005-1.030) Urine Protein Negative (Negative) Urine Glucose (UA) Negative (Negative) mg/dL Urine Ketones Negative (Negative) Urine Blood Negative (Negative) Urine Nitrite Negative (Negative) Urine Bilirubin Negative (Negative) Urine Urobilinogen 1.0 A (0.2) mg/dL Ur Leukocyte Esterase Negative (Negative) U Hyaline Cast (Auto) NONE SEEN (0-2) /LPF Urine Microscopic RBC 0-2 (0-5) /HPF Urine Microscopic WBC 6-10 A (0-5) /HPF Ur Epithelial Cells None Seen (None Seen) /HPF Urine Bacteria Many A (None Seen) /HPF Urine Culture Reflexed YES (NO) Urine Opiates Level POSITIVE A (NEGATIVE) Ur Methadone NEGATIVE (NEGATIVE) Urine Barbiturates NEGATIVE (NEGATIVE) Ur Phencyclidine (PCP) NEGATIVE (NEGATIVE) Urine Amphetamine NEGATIVE (NEGATIVE) U Benzodiazepine Level NEGATIVE (NEGATIVE) Urine Cocaine NEGATIVE (NEGATIVE) Urine Marijuana (THC) NEGATIVE (NEGATIVE) 07/19/24 07/19/24 07/19/24 Range/Units 16:48 16:48 16:48 WBC 8.5 (3.98-10.04) x10^3/uL RBC 4.97 (3.93-5.22) x10^6/uL Hgb 14.4 (11.2-15.7) g/dL Hct 43.6 (34.1-44.9) % MCV 87.7 (79.4-94.8) fL MCH 29.0 (25.6-32.2) pg MCHC 33.0 (32.2-35.5) g/dL RDW 13.4 (11.7-14.4) % Plt Count 350 (182-369) x10^3/uL MPV 9.7 (9.4-12.3) fL Gran % 75.6 H (34.0-71.1) % Immature Gran % (Auto) 0.2 (0.001-0.429) % Nucleat RBC Rel Count 0.0 (0.00-0.2) % Eos # (Auto) 0.03 L (0.04-0.36) x10^3/uL Immature Gran # (Auto) 0.02 (0.001-0.031) x10^3u/L Absolute Lymphs (auto) 1.33 (1.18-3.74) x10^3/uL Absolute Monos (auto) 0.61 (0.24-0.86) x10^3/uL Absolute Nucleated RBC 0.00 (0.00-0.012) x10^3u/L Lymphocytes % 15.7 L (19.3-51.7) % Monocytes % 7.2 (4.7-12.5) % Eosinophils % 0.4 L (0.7-5.8) % Basophils % 0.9 (0.1-1.2) % Absolute Granulocytes 6.38 H (1.56-6.13) x10^3/uL Basophils # 0.08 (0.01-0.08) x10^3/uL Sodium 138 (135-145) mmol/L Potassium 3.0 L* (3.5-5.1) mmol/L Chloride 98 (98-107) mmol/L Carbon Dioxide 27 (22-30) mmol/L Anion Gap 15.3 H (5-15) MEQ/L BUN 4 L (7-17) mg/dL Creatinine 0.57 (0.52-1.04) mg/dL Estimated GFR 122.2 ML/MIN Glucose 151 H (74-106) mg/dL Calcium 9.4 (8.4-10.2) mg/dL Total Bilirubin 1.30 (0.2-1.3) mg/dL AST 457 H (14-36) U/L ALT 241 H (0-35) U/L Alkaline Phosphatase 288 H (38-126) U/L Troponin I < 0.012 (0.000-0.033) ng/mL Serum Total Protein 8.3 H (6.3-8.2) g/dL Albumin 4.4 (3.5-5.0) g/dL Lipase 110 (23-300) U/L Urine Color (Yellow) Urine Appearance (Clear) Urine pH (4.6-8.0) Ur Specific [place] (1.005-1.030) Urine Protein (Negative) Urine Glucose (UA) (Negative) mg/dL Urine Ketones (Negative) Urine Blood (Negative) Urine Nitrite (Negative) Urine Bilirubin (Negative) Urine Urobilinogen (0.2) mg/dL Ur Leukocyte Esterase (Negative) U Hyaline Cast (Auto) (0-2) /LPF Urine Microscopic RBC (0-5) /HPF Urine Microscopic WBC (0-5) /HPF Ur Epithelial Cells (None Seen) /HPF Urine Bacteria (None Seen) /HPF Urine Culture Reflexed (NO) Urine Opiates Level (NEGATIVE) Ur Methadone (NEGATIVE) Urine Barbiturates (NEGATIVE) Ur Phencyclidine (PCP) (NEGATIVE) Urine Amphetamine (NEGATIVE) U Benzodiazepine Level (NEGATIVE) Urine Cocaine (NEGATIVE) Urine Marijuana (THC) (NEGATIVE) - Progress Progress: improved Counseled pt/family regarding: lab results, diagnosis, need for follow-up, rad results <GEE SHORE - Last Filed: 07/19/24 19:10> - Progress Progress Note: 07/19/24 19:[address] Riojas at 1900 pending repeat BMP due to hypokalemia. Init ial K 3, repeat 3.5. Patient feeling better and can d/c home at this time. (GEE SHORE) Medical Desision Making - Diagnostic Testing Diagnostic test were ordered, analyzed, and reviewed by me: Yes Radiological Interpretation: Interpreted by me, Reviewed by me - Risk of complications The pt has a mod risk of morbidity or mortality based on: Need for prescription drug management <GEE SHORE - Last Filed: 07/19/24 19:10> - Departure Departure Disposition: Home Critical Care Time: No <JOSEE RIOJAS - Last Filed: 07/19/24 18:52> <GEE SHORE - Last Filed: 07/19/24 19:10> - Departure Clinical Impression: Vomiting with nausea, not intractable, Hypokalemia Condition: Stable Referrals: DOCTOR,NO FAMILY [Primary Care Provider] - Follow up/PCP as directed Prescriptions: ondansetron HCL [Zofran] 8 mg PO TID PRN 5 Days #15 tablet PRN Reason: Nausea
[2024-07-19] MEDS ORDERED: Sodium Chloride 0.9% 1000 ML 1,000 ML ONE (16:40)
[2024-07-19] MEDS: Sodium Chloride 0.9% 1000 ML 1,000 ML IV STA (16:42)
[2024-07-19] MEDS: Zofran 4 MG/2 ML VIAL IV ONE (16:42)
[2024-07-19] MEDS: SUBLIMAZE 100 MCG/2 ML IV ONE (16:42)
[2024-07-19 16:51] LABS: Absolute Neutrophil Ct (ANC) 6.38 x10^3/uL (1.56-6.13); BASOPHIL % 0.9 % (0.1-1.2); Basophil (Absolute #) 0.08 x10^3/uL (0.01-0.08); Eosinophil % 0.4 % (0.7-5.8); Eosinophil (Absolute #) 0.03 x10^3/uL (0.04-0.36); Hematocrit 43.6 % (34.1-44.9); Hemoglobin 14.4 g/dL (11.2-15.7); IMMATURE GRAN # 0.02 x10^3u/L (0.001-0.031); IMMATURE GRAN % 0.2 % (0.001-0.429); Lymphocyte (Absolute #) 1.33 x10^3/uL (1.18-3.74); Lymphocytes % 15.7 % (19.3-51.7); Mean Cell Volume 87.7 fL (79.4-94.8); Mean Platelet Volume 9.7 fL (9.4-12.3); Monocyte (Absolute #) 0.61 x10^3/uL (0.24-0.86); Monocytes % 7.2 % (4.7-12.5); Neutrophil % 75.6 % (34.0-71.1); Platelet Count 350 x10^3/uL (182-369); Red Blood Count 4.97 x10^6/uL (3.93-5.22); Red Cell Distribution Width 13.4 % (11.7-14.4); White Blood Count 8.5 x10^3/uL (3.98-10.04)
[2024-07-19 17:03] LABS: ALBUMIN 4.4 g/dL (3.5-5.0); ANION GAP 15.3 MEQ/L (5-15); BILIRUBIN,TOTAL 1.3 mg/dL (0.2-1.3); Calcium 9.4 mg/dL (8.4-10.2); Creatinine 1 0.57 mg/dL (0.52-1.04); EST GLOMERULAR FILTRATION RATE 122.2 ML/MIN; Total Protein 8.3 g/dL (6.3-8.2)
[2024-07-19] MEDS ORDERED: POTASSIUM CHLORIDE 20 mEq IN WATER 100ML 100 ML IV ONE (17:21)
[2024-07-19] MEDS: SODIUM CHLORIDE 0.45% W/ 20 mEq KCL 1,000 ML IV SCH (17:22)
[2024-07-19] MEDS: POTASSIUM CHLORIDE 20 mEq IN WATER 100ML 20 MEQ/100 ML BAG IV ONE (17:24)
[2024-07-19] MEDS ORDERED: BENADRYL 50 MG/ML ONE (17:52)
[2024-07-19] MEDS: BENADRYL 50 MG/ML IV ONE (17:54)
[2024-07-19 18:04] LABS: Appearance Clear (Clear); Bacteria Many /HPF (None Seen); Bilirubin Negative (Negative); Blood Negative (Negative); Epithelial Cells None Seen /HPF (None Seen); Glucose, Urine Negative (Negative); Hyaline Casts NONE SEEN /LPF (0-2); Ketones Negative (Negative); Leukocyte Esterase Negative (Negative); Nitrite Negative (Negative); Ph 7.5 (4.6-8.0); Protein,Urine Dip Negative (Negative); RBC 0-2 /HPF (0-5); Specific Gravity >=1.030 (1.005-1.030)
--- NOTE | 2024-07-19 18:11 | XRAY ---
CLINICAL HISTORY: abdominal pain, vomiting COMPARISON: 07/12/2024. TECHNIQUE: Contrast CT of the abdomen and pelvis was performed, with the following protocol: axial images, and reconstructed coronal and sagittal images. 80cc isovue-370mg/ml intravenous contrast administered. One of the following dose reduction techniques was utilized for this exam: Automated exposure control, adjustment of the mA and/or kV according to patient size, and use of iterative reconstruction. CTDI:3.59mGy, DLP: 408.03mgY*cm. FINDINGS: Scan through the lower chest reveals unremarkable lung bases and heart. Abdomen: Liver: Enlarged in size 20 cm in right lobe span, preserved shape, with severe hepatic steatosis. No focal lesions, cysts, or masses were identified. No area of abnormal enhancement. Gallbladder and Biliary System: GB is surgically removed, Cholecystectomy clips. Non-dilated biliary tract. Pancreas: Pancreatic head, body, and tail are visualized and appear normal in size and density. A fairly defined hypodensity measuring about 0.8 cm is seen in the pancreatic tail. Spleen: Normal in size, shape, and density. No splenic lesions or masses were identified. Kidneys and Adrenal Glands: Both kidneys are normal in size, shape, and position. Cortical thickness is within normal limits. No renal calculi or hydronephrosis. Adrenal glands are unremarkable. Appendix: The appendix is normal in size without john appendiceal fat stranding and without an appendicolith. No evidence of appendiceal abscess or perforation. Pelvis: Urinary Bladder: Normal in contour and wall thickness. No intraluminal lesions. Uterus: Normal in size and contour. No masses or abnormal thickening. Ovaries: Not well visualized but no gross abnormalities noted. Vagina: Normal in contour and wall thickness. Cervix: No evidence of mass or abnormal thickening. Peritoneal and Retroperitoneal Structures: No free fluid or abnormal fluid collections were identified within the abdomen or pelvis. No lymphadenopathy was noted. Bowel: The previously seen mildly distension of proximal jejunal is improved currently , no signs of obstruction. No evidence of bowel obstruction or wall thickening. No abnormal enhancement Bones and Soft Tissues: Pelvic bones and soft tissues are unremarkable. No fractures or abnormal masses were identified. IMPRESSION: 1. Stable hepatomegaly with severe steatosis. 2. Resolution of the previously noted mildly distended proximal jejunal loops. No signs of obstruction. 3. A 0.8 cm fairly defined hypodensity in the pancreatic tail, not seen on previous non-contrast enhanced studies. This may represent a cyst. 4. Suggest further evaluation if clinically warranted. Electronically Signed by: Sherrie Joy MD. (07/19/2024 18:06:10 EDT)
[2024-07-19 18:15] LABS: Amphetamine,Urine NEGATIVE (NEGATIVE); Barbiturate,Urine NEGATIVE (NEGATIVE); Benzodiazepine,Urine NEGATIVE (NEGATIVE); Cocaine,Urine NEGATIVE (NEGATIVE); Methadone,Urine NEGATIVE (NEGATIVE); Opiate,Urine POSITIVE (NEGATIVE); PCP,Urine NEGATIVE (NEGATIVE); THC,Urine NEGATIVE (NEGATIVE)
[2024-07-19 18:53] VITALS: O2SAT 98
[2024-07-19 18:55] LABS: ANION GAP 12.8 MEQ/L (5-15); Calcium 8.6 mg/dL (8.4-10.2); Creatinine 1 0.56 mg/dL (0.52-1.04); EST GLOMERULAR FILTRATION RATE 122.7 ML/MIN; Potassium 3.5 mmol/L (3.5-5.1)
[2024-07-19 19:13] VITALS: BP 133/105; PULSE 98
== END 2024-07-19 19:30 | disposition home or self-care (01) ==
LOC: ED 16:14
DX: R11.2 Nausea with vomiting, unspecified (principal); E87.6 Hypokalemia; R10.13 Epigastric pain
CPT/HCPCS: 36000; 36415; 74177; 80048; 80053; 80307; 81001; 83690; 84484; 85025; 87077; 87086; 87186; 93005; 96360; 96374; 96375; 99284; J1200; J2405; J3010; J3480

== ENCOUNTER 2024-08-11 20:01 | Emergency (ER) | payer BC ==
[2024-08-11 20:17] VITALS: TEMP 98.3
[2024-08-11] MEDS ORDERED: Sodium Chloride 0.9% 1000 ML 1,000 ML ONE (20:23)
[2024-08-11] MEDS ORDERED: TORAdol 30 mg Injection ONE (20:23)
[2024-08-11] MEDS: TORAdol 30 mg Injection IV ONE (20:32)
[2024-08-11] MEDS: Sodium Chloride 0.9% 1000 ML 1,000 ML IV STA (20:32)
[2024-08-11 20:43] LABS: Absolute Neutrophil Ct (ANC) 6.69 x10^3/uL (1.56-6.13); BASOPHIL % 0.7 % (0.1-1.2); Basophil (Absolute #) 0.07 x10^3/uL (0.01-0.08); Eosinophil % 0.6 % (0.7-5.8); Eosinophil (Absolute #) 0.06 x10^3/uL (0.04-0.36); Hematocrit 43.4 % (34.1-44.9); Hemoglobin 14.4 g/dL (11.2-15.7); IMMATURE GRAN # 0.03 x10^3u/L (0.001-0.031); IMMATURE GRAN % 0.3 % (0.001-0.429); Lymphocyte (Absolute #) 2.32 x10^3/uL (1.18-3.74); Lymphocytes % 23.3 % (19.3-51.7); Mean Cell Volume 84.1 fL (79.4-94.8); Mean Corpuscular Hemoglobin 27.9 pg (25.6-32.2); Mean Corpuscular Hgb Concent. 33.2 g/dL (32.2-35.5); Mean Platelet Volume 9.6 fL (9.4-12.3); Monocyte (Absolute #) 0.79 x10^3/uL (0.24-0.86); Monocytes % 7.9 % (4.7-12.5); Neutrophil % 67.2 % (34.0-71.1); Platelet Count 375 x10^3/uL (182-369); Red Blood Count 5.16 x10^6/uL (3.93-5.22)
[2024-08-11 20:50] LABS: HCG URINE TEST NEGATIVE (NEGATIVE)
[2024-08-11] MEDS ORDERED: XYLOCAINE VISCOUS 2% 15 ML CUP ONE (20:51)
[2024-08-11] MEDS ORDERED: MAALOX ES 30 ML UNIT DOSE ONE (20:51)
[2024-08-11] MEDS: GI COCKTAIL 45 ML (Maalox/Lidocaine) PO ONE (20:52)
[2024-08-11 20:59] LABS: ALBUMIN 4.3 g/dL (3.5-5.0); ANION GAP 14.3 MEQ/L (5-15); BILIRUBIN,TOTAL 0.7 mg/dL (0.2-1.3); Calcium 9.5 mg/dL (8.4-10.2); Creatinine 1 0.58 mg/dL (0.52-1.04); EST GLOMERULAR FILTRATION RATE 121.7 ML/MIN; Potassium 3.3 mmol/L (3.5-5.1); Total Protein 7.6 g/dL (6.3-8.2)
[2024-08-11 21:34] LABS: Appearance Clear (Clear); Bacteria Rare /HPF (None Seen); Bilirubin Negative (Negative); Blood Moderate (Negative); Epithelial Cells Rare /HPF (None Seen); Glucose, Urine Negative (Negative); Hyaline Casts 0-2 /LPF (0-2); Ketones Negative (Negative); Leukocyte Esterase Negative (Negative); Nitrite Negative (Negative); Ph 6.5 (4.6-8.0); Protein,Urine Dip 30 (Negative); RBC 0-2 /HPF (0-5); WBC 0-2 /HPF (0-5)
[2024-08-11 22:02] VITALS: O2SAT 98
--- NOTE | 2024-08-11 22:32 | ERPHSYRPT ---
- History of Present Illness Time Seen by Provider: 08/11/24 20:10 Source: patient Exam Limitations: no limitations Patient Subjective Stated Complaint: Upper abdominal pain that goes across the whole upper abdominal area. States cannot keep anything down since this morning and states pain getting worse. Triage Nursing Assessment: Patient presents with upper abdominal pain that feels like a sharp stabbing pain and burning sensation. States is worse with vomiting. States has not been able to keep anything down. Physician History: 33-year-old female history of pancreatitis presents to our ED for evaluation of epigastric pain nausea and vomiting. Symptoms started this morning. Patient states she cannot tolerate p.o. Pain described as an ache that is localized in the epigastrium. No radiation. Pain worse with palpation. Pain improved with rest. Patient otherwise feels well she voices no other complaints or concerns at this time. No fever. No rash. No trauma. Sister at bedside. Portions of this note were created with voice recognition technology. There may be grammatical, spelling, punctuation or sound alike errors Timing/Duration: today Severity: moderate Modifying Factors: Improves With: nothing Associated Symptoms: denies symptoms Allergies/Adverse Reactions: No Known Drug Allergies Allergy (Verified 07/19/24 16:19) Hx Tetanus, Diphtheria Vaccination/Date Given: Yes Hx Influenza Vaccination/Date Given: No Hx Pneumococcal Vaccination/Date Given: No Immunizations Up to Date: Yes Travel Risk - International Travel Have you traveled outside of the country in past 3 weeks: No - Emerging Infectious Disease Are you exhibiting symptoms associated with any current EIDs: No Symptoms: Abdominal Pain, Vomitting - Review of Systems Constitutional: No Symptoms, No Fever, No Chills Eyes: No Symptoms Ears, Nose, & Throat: No Symptoms Respiratory: No Symptoms, No Cough, No Dyspnea Cardiac: No Symptoms, No Chest Pain, No Edema, No Syncope Abdominal/Gastrointestinal: No Symptoms, No Abdominal Pain, No Nausea, No Vomiting, No Diarrhea Genitourinary Symptoms: No Symptoms, No Dysuria Musculoskeletal: No Symptoms, No Back Pain, No Neck Pain Skin: No Symptoms, No Rash Neurological: No Symptoms, No Dizziness, No Focal Weakness, No Sensory Changes Psychological: No Symptoms Endocrine: No Symptoms Hematologic/Lymphatic: No Symptoms Immunological/Allergic: No Symptoms All Other Systems: Reviewed and Negative - Past Medical History Pertinent Past Medical History: Yes Neurological History: Migraines ENT History: No Pertinent History Cardiac History: No Pertinent History Respiratory History: No Pertinent History Endocrine Medical History: No Pertinent History Musculoskeletal History: No Pertinent History GI Medical History: No Pertinent History, Gallbladder Disease, Pancreatitis History: No Pertinent History Psycho-Social History: Anxiety, Bipolar, Depression, Other Female Reproductive Disorders: No Pertinent History Other Medical History: multiple personality disorder - Past Surgical History Past Surgical History: Yes Neuro Surgical History: No Pertinent History Cardiac: No Pertinent History Respiratory: No Pertinent History Gastrointestinal: Cholecystectomy Genitourinary: No Pertinent History Musculoskeletal: No Pertinent History Female Surgical History: No Pertinent History Significant Family History: hypertension (father) - Female History Hx Last Menstrual Period: 08/10/2024 Hx Now: No - Social History Smoking Status: Never smoker How long have you smoked: years Exposure to second hand smoke: No Drug Use: none Patient Lives Alone: No - Social Determinants of Health Will the patient participate in the screening: Yes Do you worry about a steady place to live?: No Do you have any problems with any of the following?: No known problems In the past 12 months,have you had to go without utilities?: No Transportation Issues: No Has anyone in your support network made you feel unsafe?: No Have you or anyone in your house had to go without enough: No - Nursing Vital Signs Nursing Vital Signs: Initial Vital Signs Temperature 98.3 F 08/11/24 20:02 Pulse Rate 134 H 08/11/24 20:02 Respiratory Rate 18 08/11/24 20:02 Blood Pressure 144/112 08/11/24 20:02 O2 Sat by Pulse Oximetry 97 08/11/24 20:02 Pain Scale Pain Intensity 8 - Physical Exam General Appearance: no apparent distress, alert Eye Exam: PERRL/EOMI, eyes nml inspection Ears, Nose, Throat Exam: normal ENT inspection, TMs normal, pharynx normal, moist mucous membranes Neck Exam: normal inspection, non-tender, supple, full range of motion Respiratory Exam: normal breath sounds, lungs clear, airway intact, No respiratory distress Cardiovascular Exam: regular rate/rhythm, normal heart sounds, normal peripheral pulses Gastrointestinal/Abdomen Exam: soft, normal bowel sounds, No tenderness, No mass Back Exam: normal inspection, normal range of motion, No CVA tenderness, No vertebral tenderness Extremity Exam: normal inspection, normal range of motion, pelvis stable Neurologic Exam: alert, oriented x 3, cooperative, normal mood/affect, sensation nml, No motor deficits Skin Exam: normal color, warm, dry, No rash Lymphatic Exam: No adenopathy SpO2 Interpretation: normal SpO2: 98 O2 Delivery: Room Air - Course Nursing assessment & vital signs reviewed: Yes - CT Exams Abdomen/Pelvis CT Interpretation: Negative (No change from previous. Fatty liver. Tiny pancreatic tail cyst) Ordered Tests: Active Orders 24 hr Category Date Time Status IV Insertion STAT Care 08/11/24 20:19 Active ABDOMEN AND PELVIS W CONTRAST [CT] Stat Exams 08/11/24 20:19 Taken CBC W DIFF Stat Lab 08/11/24 20:30 Completed CMP Stat Lab 08/11/24 20:30 Completed CULTURE,URINE Stat Lab 08/11/24 20:44 Received HCG QUALITATIVE, URINE Stat Lab 08/11/24 20:45 Completed LIPASE Stat Lab 08/11/24 20:30 Completed TROPONIN Q4H Lab 08/11/24 20:30 Completed TROPONIN Q4H Lab 08/12/24 00:30 Ordered TROPONIN Q4H Lab 08/12/24 04:30 Ordered UA W/RFX UR CULTURE Stat Lab 08/11/24 20:44 Completed Medication Summary Discontinued Medications Generic Name Dose Route Start Last Admin Trade Name Freq PRN Reason Stop Dose Admin Al Hydrox/Mg Hydrox/Simethicone Confirm 08/11/24 20:51 Mag Hydrox/Al Hydrox/Simeth 30 Ml Udcup Administered 08/11/24 20:52 Dose 30 ml .ROUTE .STK-MED ONE Sodium Chloride 1,000 mls @ 999 mls/hr 08/11/24 20:19 08/11/24 22:03 Sodium Chloride 0.9% 1000 Ml IV 08/11/24 21:19 Infused .Q1H1M STA Infusion Sodium Chloride Confirm 08/11/24 20:23 Sodium Chloride 0.9% 1000 Ml Administered 08/11/24 20:24 Dose 1,000 mls @ ud .ROUTE .STK-MED ONE Ketorolac Tromethamine 30 mg 08/11/24 20:19 08/11/24 20:32 Ketorolac Tromethamine 30 Mg/Ml Inj IV 08/11/24 20:20 30 mg STAT ONE Administration Ketorolac Tromethamine Confirm 08/11/24 20:23 Ketorolac Tromethamine 30 Mg/Ml Inj Administered 08/11/24 20:24 Dose 30 mg .ROUTE .STK-MED ONE Lidocaine HCl Confirm 08/11/24 20:51 Lidocaine Hcl 2% Viscous 15 Ml Udcup Administered 08/11/24 20:52 Dose 15 ml .ROUTE .STK-MED ONE Magnesium Hydroxide 45 ml 08/11/24 20:48 08/11/24 20:52 Mag Hydrx/Alum Hyd/Simeth/Lido 45 Ml Bottle PO 08/11/24 20:49 45 ml STAT ONE Administration Potassium Chloride 40 meq 08/11/24 22:23 08/11/24 22:34 Potassium Chloride Tab 10 Meq Tab PO 08/11/24 22:24 40 meq STAT ONE Administration Lab/Rad Data: Laboratory Result Diagrams 08/11/24 20:30 08/11/24 20:30 Laboratory Results 08/11/24 08/11/24 08/11/24 Range/Units 20:45 20:44 20:30 WBC (3.98-10.04) x10^3/uL RBC (3.93-5.22) x10^6/uL Hgb (11.2-15.7) g/dL Hct (34.1-44.9) % MCV (79.4-94.8) fL MCH (25.6-32.2) pg MCHC (32.2-35.5) g/dL RDW (11.7-14.4) % Plt Count (182-369) x10^3/uL MPV (9.4-12.3) fL Gran % (34.0-71.1) % Immature Gran % (Auto) (0.001-0.429) % Nucleat RBC Rel Count (0.00-0.2) % Eos # (Auto) (0.04-0.36) x10^3/uL Immature Gran # (Auto) (0.001-0.031) x10^3u/L Absolute Lymphs (auto) (1.18-3.74) x10^3/uL Absolute Monos (auto) (0.24-0.86) x10^3/uL Absolute Nucleated RBC (0.00-0.012) x10^3u/L Lymphocytes % (19.3-51.7) % Monocytes % (4.7-12.5) % Eosinophils % (0.7-5.8) % Basophils % (0.1-1.2) % Absolute Granulocytes (1.56-6.13) x10^3/uL Basophils # (0.01-0.08) x10^3/uL Sodium (135-145) mmol/L Potassium (3.5-5.1) mmol/L Chloride (98-107) mmol/L Carbon Dioxide (22-30) mmol/L Anion Gap (5-15) MEQ/L BUN (7-17) mg/dL Creatinine (0.52-1.04) mg/dL Estimated GFR ML/MIN Glucose (74-106) mg/dL Calcium (8.4-10.2) mg/dL Total Bilirubin (0.2-1.3) mg/dL AST (14-36) U/L ALT (0-35) U/L Alkaline Phosphatase (38-126) U/L Troponin I < 0.012 (0.000-0.033) ng/mL Serum Total Protein (6.3-8.2) g/dL Albumin (3.5-5.0) g/dL Lipase (23-300) U/L Urine Color Yellow (Yellow) Urine Appearance Clear (Clear) Urine pH 6.5 (4.6-8.0) Ur Specific [place] 1.010 (1.005-1.030) Urine Protein 30 (Negative) Urine Glucose (UA) Negative (Negative) mg/dL Urine Ketones Negative (Negative) Urine Blood Moderate A (Negative) Urine Nitrite Negative (Negative) Urine Bilirubin Negative (Negative) Urine Urobilinogen 1.0 A (0.2) mg/dL Ur Leukocyte Esterase Negative (Negative) U Hyaline Cast (Auto) 0-2 (0-2) /LPF Urine Microscopic RBC 0-2 (0-5) /HPF Urine Microscopic WBC 0-2 (0-5) /HPF Ur Epithelial Cells Rare (None Seen) /HPF Urine Bacteria Rare A (None Seen) /HPF Urine Culture Reflexed YES (NO) Urine HCG, Qual NEGATIVE (NEGATIVE) 08/11/24 08/11/24 Range/Units 20:30 20:30 WBC 10.0 (3.98-10.04) x10^3/uL RBC 5.16 (3.93-5.22) x10^6/uL Hgb 14.4 (11.2-15.7) g/dL Hct 43.4 (34.1-44.9) % MCV 84.1 (79.4-94.8) fL MCH 27.9 (25.6-32.2) pg MCHC 33.2 (32.2-35.5) g/dL RDW 14.0 (11.7-14.4) % Plt Count 375 H (182-369) x10^3/uL MPV 9.6 (9.4-12.3) fL Gran % 67.2 (34.0-71.1) % Immature Gran % (Auto) 0.3 (0.001-0.429) % Nucleat RBC Rel Count 0.0 (0.00-0.2) % Eos # (Auto) 0.06 (0.04-0.36) x10^3/uL Immature Gran # (Auto) 0.03 (0.001-0.031) x10^3u/L Absolute Lymphs (auto) 2.32 (1.18-3.74) x10^3/uL Absolute Monos (auto) 0.79 (0.24-0.86) x10^3/uL Absolute Nucleated RBC 0.00 (0.00-0.012) x10^3u/L Lymphocytes % 23.3 (19.3-51.7) % Monocytes % 7.9 (4.7-12.5) % Eosinophils % 0.6 L (0.7-5.8) % Basophils % 0.7 (0.1-1.2) % Absolute Granulocytes 6.69 H (1.56-6.13) x10^3/uL Basophils # 0.07 (0.01-0.08) x10^3/uL Sodium 138 (135-145) mmol/L Potassium 3.3 L (3.5-5.1) mmol/L Chloride 98 (98-107) mmol/L Carbon Dioxide 29 (22-30) mmol/L Anion Gap 14.3 (5-15) MEQ/L BUN 3 L (7-17) mg/dL Creatinine 0.58 (0.52-1.04) mg/dL Estimated GFR 121.7 ML/MIN Glucose 120 H (74-106) mg/dL Calcium 9.5 (8.4-10.2) mg/dL Total Bilirubin 0.70 (0.2-1.3) mg/dL AST 302 H (14-36) U/L ALT 123 H (0-35) U/L Alkaline Phosphatase 204 H (38-126) U/L Troponin I (0.000-0.033) ng/mL Serum Total Protein 7.6 (6.3-8.2) g/dL Albumin 4.3 (3.5-5.0) g/dL Lipase 81 (23-300) U/L Urine Color (Yellow) Urine Appearance (Clear) Urine pH (4.6-8.0) Ur Specific [place] (1.005-1.030) Urine Protein (Negative) Urine Glucose (UA) (Negative) mg/dL Urine Ketones (Negative) Urine Blood (Negative) Urine Nitrite (Negative) Urine Bilirubin (Negative) Urine Urobilinogen (0.2) mg/dL Ur Leukocyte Esterase (Negative) U Hyaline Cast (Auto) (0-2) /LPF Urine Microscopic RBC (0-5) /HPF Urine Microscopic WBC (0-5) /HPF Ur Epithelial Cells (None Seen) /HPF Urine Bacteria (None Seen) /HPF Urine Culture Reflexed (NO) Urine HCG, Qual (NEGATIVE) - Progress Progress: improved Progress Note: 33-year-old female presents to our ED for evaluation of epigastric pain. Physical exam reveals epigastric tenderness. Physical exam otherwise unremarkable. Laboratory workup reveals elevated AST to ALT with a 2:1 ratio consistent with alcohol use. Patient admits to alcohol drinking primarily on t weekends. Patient received Toradol however this did not help her pain. Patient received a GI cocktail with lidocaine which resolved her symptoms. I advised patient that she is likely experiencing a gastritis secondary to alcohol use. Patient advised to discontinue the alcohol. A prescription for Protonix forwarded to patient's pharmacy. We advised patient that she would require a outpatient scope to evaluate for possible ulcer. Patient has a primary care doctor that she follows up with regarding her chronic epigastric pain. She will follow-up with her and discussed the outpatient scope. Patient is currently asymptomatic. She states he is ready for discharge. She voices no other complaints or concerns at this time. CT scan negative for acute intra-abdominal pathology Portions of this note were created with voice recognition technology. There may be grammatical, spelling, punctuation or sound alike errors Complexity of problem addressed is moderate acute complicated no critical care time. Complex of data reviewed and analyzed is moderate. Test ordered chest reviewed results analyzed and correlated clinically with history and physical exam. Risk of complication and or risk of morbidity/mortality of patient management is moderate. A prescription for Protonix forwarded to patient's pharmacy. Vital stable. Time spent to discharge patient approximately 20 min utes. Plan of care established for shared decision making. No social determinants of health present to impede follow-up. Portions of this note were created with voice recognition technology. There may be grammatical, spelling, punctuation or sound alike errors 08/11/24 22:35 08/11/24 22:38 Counseled pt/family regarding: lab results, diagnosis, need for follow-up, rad results - Departure Departure Disposition: Home Clinical Impression: Abdominal pain, Epigastric pain, Nausea and vomiting, Alcoholic gastritis, Elevated liver enzymes, Elevated alkaline phosphatase level Condition: Stable Critical Care Time: No Referrals: DOCTOR,NO FAMILY [Primary Care Provider] - Follow up/PCP as directed Additional Instructions: Discharge/Care Plan GOPAL RUIZ was seen on 08/11/24 in the Emergency Room. The patient was counseled regarding Diagnosis,Lab results, Imaging studies, need for follow up and when to return to the Emergency Room. Prescriptions given: Discharge Note I have spoken with the patient and/or caregivers. I have explained the patient's condition, diagnosis and treatment plan based on the information available to me at this time. I have answered the patient's and/or caregiver's questions and addressed any concerns. The patient and/or caregivers have as good understanding of the patient's diagnosis, condition and treatment plan as can be expected at this point. The vital signs have been stable. The patient's condition is stable and appropriate for discharge from the emergency department. The patient will pursue further outpatient evaluation with the primary care physician or other designated or consulting physician as outlined in the discharge instructions. The patient and/or caregivers are agreeable to this plan of care and follow-up instructions have been explained in detail. The patient and/or caregivers have received these instruction. The patient/and or caregivers are aware that any significant change in condition or worsening of symptoms s hould prompt an immediate return to this or the closest emergency department or call 911. Prescriptions: PANTOPRAZOLE 40 mg Tablet [Protonix 40MG Tablet] 40 mg PO DAILY 14 Days #14 tab
[2024-08-11 22:33] VITALS: RESP 16
[2024-08-11] MEDS: Klor Con PO ONE (22:34)
[2024-08-11] MEDS ORDERED: Klor Con ONE (22:34)
[2024-08-11 22:46] VITALS: BP 157/103; PULSE 103
--- NOTE | 2024-08-12 08:42 | XRAY ---
Indication: Pain. Multiple contiguous axial images obtained through the abdomen and pelvis using 80 cc Isovue 370 contrast. Comparison: July 19, 2024. Lung bases clear. Heart not enlarged. Noncontrasted stomach and bowel loops appear nonobstructed with normal appendix. Tail of pancreas demonstrates stable subcentimeter cyst. Again diffuse fatty 22 cm hepatomegaly and previous cholecystectomy. New tampon in situ. No free fluid/air. Remaining liver, pancreas, spleen, adrenal glands, kidneys, ureters, bladder, uterus, and aorta are unremarkable. No pathologic retroperitoneal lymphadenopathy. Osseous structures intact. Impression: 1. Stable fatty hepatomegaly and subcentimeter pancreatic tail cyst. 2. Remaining CT abdomen/pelvis with contrast exam continues to be negative.
== END 2024-08-11 22:45 | disposition home or self-care (01) ==
LOC: ED 20:01
DX: K29.20 Alcoholic gastritis without bleeding (principal); R10.9 Unspecified abdominal pain; R10.13 Epigastric pain; R11.2 Nausea with vomiting, unspecified; R94.5 Abnormal results of liver function studies; R74.8 Abnormal levels of other serum enzymes; Z79.899 Other long term (current) drug therapy
CPT/HCPCS: 36000; 36415; 74177; 80053; 81001; 81025; 83690; 84484; 85025; 87086; 96374; 96375; 99284; 99285; J1885; A9270-GY

== ENCOUNTER 2024-08-20 09:49 | Inpatient (IN) | payer BC ==
[2024-08-20 10:18] LABS: Absolute Neutrophil Ct (ANC) 10.63 x10^3/uL (1.56-6.13); BASOPHIL % 0.5 % (0.1-1.2); Basophil (Absolute #) 0.06 x10^3/uL (0.01-0.08); Eosinophil % 0.4 % (0.7-5.8); Eosinophil (Absolute #) 0.05 x10^3/uL (0.04-0.36); Hematocrit 43.6 % (34.1-44.9); Hemoglobin 14.3 g/dL (11.2-15.7); IMMATURE GRAN # 0.06 x10^3u/L (0.001-0.031); IMMATURE GRAN % 0.5 % (0.001-0.429); Lymphocyte (Absolute #) 1.42 x10^3/uL (1.18-3.74); Lymphocytes % 10.9 % (19.3-51.7); Mean Cell Volume 84.3 fL (79.4-94.8); Mean Corpuscular Hemoglobin 27.7 pg (25.6-32.2); Mean Corpuscular Hgb Concent. 32.8 g/dL (32.2-35.5); Mean Platelet Volume 9.4 fL (9.4-12.3); Monocyte (Absolute #) 0.75 x10^3/uL (0.24-0.86); Monocytes % 5.8 % (4.7-12.5); Neutrophil % 81.9 % (34.0-71.1); Platelet Count 378 x10^3/uL (182-369); Red Blood Count 5.17 x10^6/uL (3.93-5.22); Red Cell Distribution Width 13.8 % (11.7-14.4)
[2024-08-20] MEDS ORDERED: Zofran 4 MG/2 ML VIAL ONE (10:28)
[2024-08-20 10:29] LABS: HCG SERUM TEST NEGATIVE (NEGATIVE)
[2024-08-20 10:30] LABS: ALBUMIN 4.3 g/dL (3.5-5.0); ALKALINE PHOSPHATASE 249 U/L (38-126); AMYLASE 216 U/L (30-110); ANION GAP 16.9 MEQ/L (5-15); BLOOD UREA NITROGEN 5 mg/dL (7-17); CHLORIDE 98 mmol/L (98-107); Calcium 9.2 mg/dL (8.4-10.2); Carbon Dioxide 25 mmol/L (22-30); Creatinine 1 0.52 mg/dL (0.52-1.04); Glucose 162 mg/dL (74-106); Potassium 3.3 mmol/L (3.5-5.1); SGOT/AST 343 U/L (14-36); SGPT/ALT 128 U/L (0-35); SODIUM 136 mmol/L (135-145); Total Protein 7.9 g/dL (6.3-8.2)
[2024-08-20] MEDS: Zofran 4 MG/2 ML VIAL IV ONE (10:30)
[2024-08-20 10:39] LABS: LIPASE 2215 U/L (23-300)
[2024-08-20 10:43] LABS: TROPONIN < 0.012 ng/mL (0.000-0.033)
[2024-08-20] MEDS ORDERED: Reglan 10 MG/2 ML ONE (10:50)
[2024-08-20] MEDS ORDERED: Sodium Chloride 0.9% 1000 ML 1,000 ML ONE (10:50)
[2024-08-20] MEDS ORDERED: PROTONIX 40 MG IV IV ONE (10:50)
[2024-08-20] MEDS ORDERED: MORPHINE SULFATE 4 MG INJ ONE ×2 (10:50→12:31)
[2024-08-20] MEDS: Sodium Chloride 0.9% 1000 ML 1,000 ML IV STA (10:53)
[2024-08-20] MEDS: PROTONIX 40 MG IV IV ONE (10:54)
[2024-08-20] MEDS: MORPHINE SULFATE 4 MG INJ IV ONE ×2 (10:54→12:33)
[2024-08-20] MEDS: Reglan 10 MG/2 ML IV ONE (10:54)
--- NOTE | 2024-08-20 12:04 | XRAY ---
Indication: Abdominal pain. Vomiting. Multiple contiguous axial images obtained through the abdomen and pelvis without contrast. Comparison: August 11, 2024. Lung bases remain clear. Heart not enlarged. Noncontrasted stomach and bowel loops nonobstructed with again normal appendix. New mild diffuse peripancreatic edema with peripancreatic stranding favoring acute pancreatitis. No free fluid/air. Adjacent descending and transverse duodenum demonstrates circumferential wall thickening presumed reactive. Again 21.2 cm fatty hepatomegaly and cholecystectomy. Remaining spleen, adrenal glands, kidneys, ureters, bladder, uterus, and aorta are unremarkable for noncontrast exam. Impression: 1. New CT findings favoring diffuse pancreatitis with adjacent reactive duodenitis. 2. Again chronic fatty hepatomegaly.
--- NOTE | 2024-08-20 12:28 | ERPHSYRPT ---
- History of Present Illness Time Seen by Provider: 08/20/24 10:43 Historian: patient Exam Limitations: no limitations Patient Subjective Stated Complaint: Pt reports last night she started vomiting and started experiencing upper abdominal pain today. Approx one to two hours ago everytime she lays down she feels like her heart is "coming out of my chest" and feels fast. Pt states pain in abdomen is a newchronic problem since having gallbladder removed and sees gastroenterology at [facility] who is currently doing work up on pt. Triage Nursing Assessment: Pt alert and oriented x3. Respirations easy/nonlabored. Skin w/p/d. Appears to be in no distress. Ambulated to ED cot without difficulty. Accompanied by sister. Abdomen soft/tender in upper quads, more so in the right, active bowel sounds in all four quads. Pain reported to be worse in right upper quad than left upper quad. Physician History: 33-year-old female with history of chronic pancreatitis, alcohol abuse, cholecystectomy presented in the ER with complaint of right-sided abdominal pain with associated nausea and vomiting. Patient reports she started to have abdominal pain since yesterday and late last night started to have nausea with multiple episodes of nonprojectile, nonbilious vomiting. Not able to hold much down. Feels weak fatigued tired and dehydrated. Also reports having palpitations/racing of the heart. Patient does report drinking occasionally and last drink was 2 days ago. No fever or chills reported. Allergies/Adverse Reactions: No Known Drug Allergies Allergy (Verified 08/20/24 09:51) Hx Tetanus, Diphtheria Vaccination/Date Given: Yes Hx Influenza Vaccination/Date Given: No Hx Pneumococcal Vaccination/Date Given: No Travel Risk - International Travel Have you traveled outside of the country in past 3 weeks: No - Emerging Infectious Disease Are you exhibiting symptoms associated with any current EIDs: No Symptoms: Abdominal Pain, Vomitting - Review of Systems Constitutional: Fatigue, Weakness Eyes: No Symptoms Ears, Nose, & Throat: No Symptoms Respiratory: No Symptoms Cardiac: Palpitations Abdominal/Gastrointestinal: Abdominal Pain, Nausea, Vomiting Genitourinary Symptoms: No Symptoms Musculoskeletal: Myalgias Skin: No Symptoms Neurological: No Symptoms Psychological: No Symptoms, Anxiety Endocrine: No Symptoms Hematologic/Lymphatic: No Symptoms - Past Medical History Pertinent Past Medical History: Yes Neurological History: Migraines ENT History: No Pertinent History Cardiac History: No Pertinent History Respiratory History: No Pertinent History Endocrine Medical History: No Pertinent History Musculoskeletal History: No Pertinent History GI Medical History: Gallbladder Disease, Pancreatitis History: No Pertinent History Psycho-Social History: Anxiety, Bipolar, Depression, Other Female Reproductive Disorders: No Pertinent History Other Medical History: multiple personality disorder - Past Surgical History Past Surgical History: Yes Neuro Surgical History: No Pertinent History Cardiac: No Pertinent History Respiratory: No Pertinent History Gastrointestinal: Cholecystectomy Genitourinary: No Pertinent History Musculoskeletal: No Pertinent History Female Surgical History: No Pertinent History Significant Family History: hypertension (father) - Female History Hx Last Menstrual Period: last week Hx Now: No - Social History Smoking Status: Never smoker How long have you smoked: years Exposure to second hand smoke: No Drug Use: none Patient Lives Alone: No - Social Determinants of Health Will the patient participate in the screening: Declined to provide - Nursing Vital Signs Nursing Vital Signs: Initial Vital Signs Temperature 98 F 08/20/24 09:51 Pulse Rate 137 H 08/20/24 09:51 Respiratory Rate 20 08/20/24 09:51 Blood Pressure 148/109 08/20/24 09:51 O2 Sat by Pulse Oximetry 95 08/20/24 09:51 Pain Scale Pain Intensity 8 - Physical Exam General Appearance: no apparent distress, alert, anxiety Eye Exam: PERRL/EOMI Ears, Nose, Throat Exam: normal ENT inspection Neck Exam: normal inspection, supple, full range of motion Respiratory Exam: normal breath sounds, lungs clear Cardiovascular Exam: normal heart sounds, tachycardia Gastrointestinal/Abdomen Exam: soft, normal bowel sounds, tenderness, guarding (Right upper and lower quadrant) Back Exam: normal inspection, normal range of motion Extremity Exam: normal inspection, normal range of motion Neurologic Exam: alert, oriented x 3, cooperative Skin Exam: normal color SpO2 Interpretation: normal SpO2: 99 O2 Delivery: Room Air Ordered Tests: Active Orders 24 hr Category Date Time Status IV Insertion STAT Care 08/20/24 10:00 Active NPO (ED) STAT Care 08/20/24 10:00 Active ABDOMEN AND PELVIS W/0 CONTRAS [CT] Stat Exams 08/20/24 10:01 Completed AMYLASE Stat Lab 08/20/24 09:50 Completed CBC W DIFF Stat Lab 08/20/24 09:50 Completed CMP Stat Lab 08/20/24 09:50 Completed HCG QUALITATIVE, SERUM Stat Lab 08/20/24 09:50 Completed LIPASE Stat Lab 08/20/24 09:50 Completed Lactic Acid Stat Lab 08/20/24 10:00 Completed Lactic Acid Stat Lab 08/20/24 12:16 Received TROPONIN Q4H Lab 08/20/24 09:50 Completed TROPONIN Q4H Lab 08/20/24 14:00 Ordered TROPONIN Q4H Lab 08/20/24 18:00 Ordered UA W/RFX UR CULTURE Stat Lab 08/20/24 10:00 Ordered Medication Summary Discontinued Medications Generic Name Dose Route Start Last Admin Trade Name Clintonq PRN Reason Stop Dose Admin Sodium Chloride 1,000 mls @ 999 mls/hr 08/20/24 10:44 08/20/24 11:55 Sodium Chloride 0.9% 1000 Ml IV 08/20/24 11:44 Infused .Q1H1M STA Infusion Sodium Chloride Confirm 08/20/24 10:50 Sodium Chloride 0.9% 1000 Ml Administered 08/20/24 10:51 Dose 1,000 mls @ ud .ROUTE .STK-MED ONE Metoclopramide HCl 10 mg 08/20/24 10:48 08/20/24 10:54 Metoclopramide Hcl 10 Mg/2 Ml Vial IV 08/20/24 10:49 10 mg STAT ONE Administration Metoclopramide HCl Confirm 08/20/24 10:50 Metoclopramide Hcl 10 Mg/2 Ml Vial Administered 08/20/24 10:51 Dose 10 mg .ROUTE .STK-MED ONE Morphine Sulfate 4 mg 08/20/24 10:44 08/20/24 10:54 Morphine Sulfate 4 Mg/Ml Injection IV 08/20/24 10:45 4 mg STAT ONE Administration Morphine Sulfate Confirm 08/20/24 10:50 Morphine Sulfate 4 Mg/Ml Injection Administered 08/20/24 10:51 Dose 4 mg .ROUTE .STK-MED ONE Ondansetron HCl 4 mg 08/20/24 10:27 08/20/24 10:30 Ondansetron Hcl 4 Mg/2 Ml Vial IV 08/20/24 10:28 4 mg STAT ONE Administration Ondansetron HCl Confirm 08/20/24 10:28 Ondansetron Hcl 4 Mg/2 Ml Vial Administered 08/20/24 10:29 Dose 4 mg .ROUTE .STK-MED ONE Pantoprazole Sodium 40 mg 08/20/24 10:44 08/20/24 10:54 Pantoprazole 40 Mg Vial IV 08/20/24 10:45 40 mg STAT ONE Administration Pantoprazole Sodium Confirm 08/20/24 10:50 Pantoprazole 40 Mg Vial Administered 08/20/24 10:51 Dose 40 mg IV .STK-MED ONE Lab/Rad Data: Laboratory Result Diagrams 08/20/24 09:50 08/20/24 09:50 Laboratory Results 08/20/24 08/20/24 08/20/24 Range/Units 10:00 09:50 09:50 WBC (3.98-10.04) x10^3/uL RBC (3.93-5.22) x10^6/uL Hgb (11.2-15.7) g/dL Hct (34.1-44.9) % MCV (79.4-94.8) fL MCH (25.6-32.2) pg MCHC (32.2-35.5) g/dL RDW (11.7-14.4) % Plt Count (182-369) x10^3/uL MPV (9.4-12.3) fL Gran % (34.0-71.1) % Immature Gran % (Auto) (0.001-0.429) % Nucleat RBC Rel Count (0.00-0.2) % Eos # (Auto) (0.04-0.36) x10^3/uL Immature Gran # (Auto) (0.001-0.031) x10^3u/L Absolute Lymphs (auto) (1.18-3.74) x10^3/uL Absolute Monos (auto) (0.24-0.86) x10^3/uL Absolute Nucleated RBC (0.00-0.012) x10^3u/L Lymphocytes % (19.3-51.7) % Monocytes % (4.7-12.5) % Eosinophils % (0.7-5.8) % Basophils % (0.1-1.2) % Absolute Granulocytes (1.56-6.13) x10^3/uL Basophils # (0.01-0.08) x10^3/uL Sodium 136 (135-145) mmol/L Potassium 3.3 L (3.5-5.1) mmol/L Chloride 98 (98-107) mmol/L Carbon Dioxide 25 (22-30) mmol/L Anion Gap 16.9 H (5-15) MEQ/L BUN 5 L (7-17) mg/dL Creatinine 0.52 (0.52-1.04) mg/dL Estimated GFR 125.0 ML/MIN Glucose 162 H (74-106) mg/dL Lactic Acid 2.4 H (0.4-2.0) Calcium 9.2 (8.4-10.2) mg/dL Total Bilirubin 0.90 (0.2-1.3) mg/dL AST 343 H (14-36) U/L ALT 128 H (0-35) U/L Alkaline Phosphatase 249 H (38-126) U/L Troponin I < 0.012 (0.000-0.033) ng/mL Serum Total Protein 7.9 (6.3-8.2) g/dL Albumin 4.3 (3.5-5.0) g/dL Amylase 216 H (30-110) U/L Lipase 2215 H (23-300) U/L Serum HCG, Qual NEGATIVE (NEGATIVE) 08/20/24 Range/Units 09:50 WBC 13.0 H (3.98-10.04) x10^3/uL RBC 5.17 (3.93-5.22) x10^6/uL Hgb 14.3 (11.2-15.7) g/dL Hct 43.6 (34.1-44.9) % MCV 84.3 (79.4-94.8) fL MCH 27.7 (25.6-32.2) pg MCHC 32.8 (32.2-35.5) g/dL RDW 13.8 (11.7-14.4) % Plt Count 378 H (182-369) x10^3/uL MPV 9.4 (9.4-12.3) fL Gran % 81.9 H (34.0-71.1) % Immature Gran % (Auto) 0.5 H (0.001-0.429) % Nucleat RBC Rel Count 0.0 (0.00-0.2) % Eos # (Auto) 0.05 (0.04-0.36) x10^3/uL Immature Gran # (Auto) 0.06 H (0.001-0.031) x10^3u/L Absolute Lymphs (auto) 1.42 (1.18-3.74) x10^3/uL Absolute Monos (auto) 0.75 (0.24-0.86) x10^3/uL Absolute Nucleated RBC 0.00 (0.00-0.012) x10^3u/L Lymphocytes % 10.9 L (19.3-51.7) % Monocytes % 5.8 (4.7-12.5) % Eosinophils % 0.4 L (0.7-5.8) % Basophils % 0.5 (0.1-1.2) % Absolute Granulocytes 10.63 H (1.56-6.13) x10^3/uL Basophils # 0.06 (0.01-0.08) x10^3/uL Sodium (135-145) mmol/L Potassium (3.5-5.1) mmol/L Chloride (98-107) mmol/L Carbon Dioxide (22-30) mmol/L Anion Gap (5-15) MEQ/L BUN (7-17) mg/dL Creatinine (0.52-1.04) mg/dL Estimated GFR ML/MIN Glucose (74-106) mg/dL Lactic Acid (0.4-2.0) Calcium (8.4-10.2) mg/dL Total Bilirubin (0.2-1.3) mg/dL AST (14-36) U/L ALT (0-35) U/L Alkaline Phosphatase (38-126) U/L Troponin I (0.000-0.033) ng/mL Serum Total Protein (6.3-8.2) g/dL Albumin (3.5-5.0) g/dL Amylase (30-110) U/L Lipase (23-300) U/L Serum HCG, Qual (NEGATIVE) - Progress Progress: improved Progress Note: 08/20/24 12:25 33-year-old with history of chronic pancreatitis is evaluated in the ER for abdominal pain with nausea vomiting. Patient was tachycardic and very anxious. She is given fluids and symptomatic treatment along with Protonix. On reevaluation she is feeling much better. Workup showed white count of 13, lactate of 2.4 and chemistries with elevated transaminases and normal total bilirubin. Patient has history of cholecystectomy. Lipase is in 1999's. I have obtained CT abdomen pelvis which showed diffuse acute pancreatitis. Patient is very anxious and I have also given a dose of Ativan as patient does have history of drinking as well. Patient discussed with Dr. Marie, reviewed history, workup and agreed with admission. I have shared the results of workup with patient and family and plan of admission which they understand and agree. Discussed with : Aarti Will see patient in: hospital (observation) Counseled pt/family regarding: lab results, diagnosis, rad results Medical Desision Making - Independent Historian Additional History obtained from: Relative/friend - Discussion of managment Care discussed with:: hospitalist Reviewed:: Test results Agreed on:: Treatment plan, place in obs Will see patient: in hospital - Diagnostic Testing Diagnostic test were ordered, analyzed, and reviewed by me: Yes Radiological Interpretation: Reviewed by me - Risk of complications The pt has a mod risk of morbidity or mortality based on: Need for prescription drug management The pt has a high risk of morbidity or mortality based on: Decision regarding hospitilization or escalation of hosp level of care - Departure Departure Disposition: Observation Clinical Impression: Acute pancreatitis, Elevated liver transaminase level Condition: Stable Critical Care Time: No Referrals: DOCTOR,NO FAMILY [Primary Care Provider] - Follow up/PCP as directed
[2024-08-20] MEDS ORDERED: Ativan 2 MG/1 ML VIAL ONE (12:30)
[2024-08-20] MEDS: Ativan 2 MG/1 ML VIAL IV ONE (12:34)
[2024-08-20] MEDS ORDERED: HYDROMORPHONE 30 MG/30 ML-NS PCA IV PRN (14:31)
[2024-08-20] MEDS ORDERED: Ativan 1 MG PO PRN (14:32)
[2024-08-20] MEDS ORDERED: Narcan 0.4 MG/ML IV PRN (15:00)
[2024-08-20] MEDS: Lactated Ringers 1,000 ML IV SCH (15:29)
[2024-08-20] MEDS: Morphine PCA 1 MG/ML IV PRN (15:29)
[2024-08-20] MEDS ORDERED: NORVASC 5 MG ONE (15:49)
[2024-08-20] MEDS: NORVASC 5 MG PO SCH (15:52)
[2024-08-20] MEDS: Ativan 2 MG/1 ML VIAL IV PRN (16:12)
--- NOTE | 2024-08-20 16:21 | PCM.HP ---
History of Present Illness - Chief Complaint Chief Complaint: Pancreatitis Date: 08/20/24 History of Present Illness: is a 33 year old female with past medical history of migraines, cholecystectomy, and pancreatitis. She presented to our ED for evaluation of ep igastric pain that started over a week ago and worsened 2 days ago with N/V. Patient states she is unable to tolerate oral intake. Pain described as an ache, no radiation. Patient reports that she no longer has her gallbladder. Physical exam reveals epigastric tenderness. Overlying soft tissue intact. No signs of trauma. Symptoms are moderate in intensity. Palpation reproduces pain. Pain improved somewhat with rest. CT shows diffuse pancreatitis with duodenitis, and fatty liver. Pt made NPO and IVF started. She admits to drinking bourbon recently. She states she is in a treatment program that is online via [employer]. She is wanting to get into a pain mgnt program for OP pain control. She wants to quit drinking she reports and had a relapse. Alcohol withdrawl protocol started. Morphine BLAST SETTER and nausea meds started. BP elevated and will start metoprolol BID. She denies any further concerns at this time. - Review of Systems Constitutional: No Fever, No Chills Eyes: No Symptoms Ears, Nose, & Throat: No Symptoms Respiratory: No Cough, No Short Of Breath Cardiac: Other (HTN), No Chest Pain, No Edema, No Syncope Abdominal/Gastrointestinal: Abdominal Pain, Nausea, Vomiting, No Diarrhea Genitourinary Symptoms: No Dysuria Musculoskeletal: No Back Pain, No Neck Pain Skin: No Rash Neurological: No Dizziness, No Focal Weakness, No Sensory Changes Psychological: No Symptoms, Alcohol Abuse, Anxiety Endocrine: No Symptoms Hematologic/Lymphatic: No Symptoms Immunological/Allergic: No Symptoms Medications & Allergies Home Medications: Home Medication List ondansetron HCL [Zofran] 8 mg PO TID PRN 5 Days #15 tablet 07/19/24 [Rx Confirmed 08/20/24] PANTOPRAZOLE 40 mg Tablet [Protonix 40MG Tablet] 40 mg PO DAILY 14 Days #14 tab 08/11/24 [Rx Confirmed 08/20/24] Thiamine Mononitrate (Vit B1) [Vitamin B-1] 100 mg PO DAILY 08/20/24 [History Confirmed 08/20/24] Allergies/Adverse Reactions: Allergies Allergy/AdvReac Type Severity Reaction Status Date / Time No Known Drug Allergies Allergy Verified 08/20/24 13:25 - Past Medical History Past Medical History: Yes Neurological History: Migraines ENT History: No Pertinent History Cardiac History: No Pertinent History Respiratory History: No Pertinent History Endocrine Medical History: No Pertinent History Musculoskelatal History: No Pertinent History GI Medical History: Gallbladder Disease, Pancreatitis History: No Pertinent History Pyscho-Social History: Anxiety, Bipolar, Depression, Other Reproductive Disorders: No Pertinent History Comment: multiple personality disorder - Female History Hx Last Menstrual Period: 08/18/2024 Are you now?: No - Past Surgical History Past Surgical History: Yes Neuro Surgical History: No Pertinent History Cardiac History: No Pertinent History Respiratory Surgery: No Pertinent History GI Surgical History: Cholecystectomy Genitourinary Surgical Hx: No Pertinent History Musculskeletal Surgical Hx: No Pertinent History Female Surgical History: No Pertinent History Significant Family History: hypertension (father) - Social History Smoking Status: Current every day smoker How long have you smoked: 3 yrs Exposure to second hand smoke: No Alcohol: Weekly Drug Use: none - Social Determinants of Health Will the patient participate in the screening: Yes Do you worry about a steady place to live?: No Do you have any problems with any of the following?: No known problems In the past 12 months,have you had to go without utilities?: No Have you or anyone in your house had to go without enough: No Transportation Issues: No Has anyone in your support network made you feel unsafe?: No Does the patient want assistance with any of the above?: No - Physical Exam Vital Signs: Vital Signs - 24 hr Temp Pulse Resp BP BP Pulse Ox 08/20/24 15:29 16 100 08/20/24 13:59 97 08/20/24 13:34 98 F 118 H 18 156/103 98 08/20/24 13:00 110 H 17 136/105 95 08/20/24 12:30 107 H 15 142/114 96 08/20/24 12:28 99 08/20/24 12:00 122 H 27 H 141/108 100 08/20/24 11:30 107 H 15 145/102 97 08/20/24 10:30 128 H 152/114 08/20/24 10:00 136 H 21 148/109 99 08/20/24 09:58 124 H 27 H 161/135 96 08/20/24 09:51 98 F 137 H 20 148/109 95 General Appearance: no apparent distress, alert Neurologic Exam: alert, oriented x 3, cooperative, normal mood/affect, nml cerebellar function, nml station & gait, sensation nml, No motor deficits Eye Exam: PERRL/EOMI, eyes nml inspection Ears, Nose, Throat Exam: normal ENT inspection, TMs normal, pharynx normal, moist mucous membranes Neck Exam: normal inspection, non-tender, supple, full range of motion Respiratory Exam: normal breath sounds, lungs clear, No respiratory distress Cardiovascular Exam: regular rate/rhythm, normal heart sounds, normal peripheral pulses Gastrointestinal/Abdomen Exam: soft, normal bowel sounds, tenderness (LUQ, RUQ with palpation), No mass Back Exam: normal inspection, normal range of motion, No CVA tenderness, No vertebral tenderness Extremity Exam: normal inspection, normal range of motion, pelvis stable Skin Exam: normal color, warm, dry, No rash Lymphatic Exam: No adenopathy Results - Labs Lab/Micro Results: Lab Results-Last 24 Hours 08/20/24 08/20/24 08/20/24 Range/Units 09:50 09:50 09:50 WBC 13.0 H (3.98-10.04) x10^3/uL RBC 5.17 (3.93-5.22) x10^6/uL Hgb 14.3 (11.2-15.7) g/dL Hct 43.6 (34.1-44.9) % MCV 84.3 (79.4-94.8) fL MCH 27.7 (25.6-32.2) pg MCHC 32.8 (32.2-35.5) g/dL RDW 13.8 (11.7-14.4) % Plt Count 378 H (182-369) x10^3/uL MPV 9.4 (9.4-12.3) fL Gran % 81.9 H (34.0-71.1) % Immature Gran % (Auto) 0.5 H (0.001-0.429) % Nucleat RBC Rel Count 0.0 (0.00-0.2) % Eos # (Auto) 0.05 (0.04-0.36) x10^3/uL Immature Gran # (Auto) 0.06 H (0.001-0.031) x10^3u/L Absolute Lymphs (auto) 1.42 (1.18-3.74) x10^3/uL Absolute Monos (auto) 0.75 (0.24-0.86) x10^3/uL Absolute Nucleated RBC 0.00 (0.00-0.012) x10^3u/L Lymphocytes % 10.9 L (19.3-51.7) % Monocytes % 5.8 (4.7-12.5) % Eosinophils % 0.4 L (0.7-5.8) % Basophils % 0.5 (0.1-1.2) % Absolute Granulocytes 10.63 H (1.56-6.13) x10^3/uL Basophils # 0.06 (0.01-0.08) x10^3/uL Sodium 136 (135-145) mmol/L Potassium 3.3 L (3.5-5.1) mmol/L Chloride 98 (98-107) mmol/L Carbon Dioxide 25 (22-30) mmol/L Anion Gap 16.9 H (5-15) MEQ/L BUN 5 L (7-17) mg/dL Creatinine 0.52 (0.52-1.04) mg/dL Estimated GFR 125.0 ML/MIN Glucose 162 H (74-106) mg/dL Lactic Acid (0.4-2.0) Calcium 9.2 (8.4-10.2) mg/dL Total Bilirubin 0.90 (0.2-1.3) mg/dL AST 343 H (14-36) U/L ALT 128 H (0-35) U/L Alkaline Phosphatase 249 H (38-126) U/L Troponin I < 0.012 (0.000-0.033) ng/mL Serum Total Protein 7.9 (6.3-8.2) g/dL Albumin 4.3 (3.5-5.0) g/dL Triglycerides (30-150) mg/dL Cholesterol (50-200) mg/dL LDL Cholesterol (30-100) mg/dL HDL Cholesterol (40-60) mg/dL Heart Disease Risk Ratio Amylase 216 H (30-110) U/L Lipase 2215 H (23-300) U/L Serum HCG, Qual NEGATIVE (NEGATIVE) Ethyl Alcohol (0-10) mg/dL 08/20/24 08/20/24 08/20/24 Range/Units 10:00 12:16 14:07 WBC (3.98-10.04) x10^3/uL RBC (3.93-5.22) x10^6/uL Hgb (11.2-15.7) g/dL Hct (34.1-44.9) % MCV (79.4-94.8) fL MCH (25.6-32.2) pg MCHC (32.2-35.5) g/dL RDW (11.7-14.4) % Plt Count (182-369) x10^3/uL MPV (9.4-12.3) fL Gran % (34.0-71.1) % Immature Gran % (Auto) (0.001-0.429) % Nucleat RBC Rel Count (0.00-0.2) % Eos # (Auto) (0.04-0.36) x10^3/uL Immature Gran # (Auto) (0.001-0.031) x10^3u/L Absolute Lymphs (auto) (1.18-3.74) x10^3/uL Absolute Monos (auto) (0.24-0.86) x10^3/uL Absolute Nucleated RBC (0.00-0.012) x10^3u/L Lymphocytes % (19.3-51.7) % Monocytes % (4.7-12.5) % Eosinophils % (0.7-5.8) % Basophils % (0.1-1.2) % Absolute Granulocytes (1.56-6.13) x10^3/uL Basophils # (0.01-0.08) x10^3/uL Sodium (135-145) mmol/L Potassium (3.5-5.1) mmol/L Chloride (98-107) mmol/L Carbon Dioxide (22-30) mmol/L Anion Gap (5-15) MEQ/L BUN (7-17) mg/dL Creatinine (0.52-1.04) mg/dL Estimated GFR ML/MIN Glucose (74-106) mg/dL Lactic Acid 2.4 H 1.6 (0.4-2.0) Calcium (8.4-10.2) mg/dL Total Bilirubin (0.2-1.3) mg/dL AST (14-36) U/L ALT (0-35) U/L Alkaline Phosphatase (38-126) U/L Troponin I < 0.012 (0.000-0.033) ng/mL Serum Total Protein (6.3-8.2) g/dL Albumin (3.5-5.0) g/dL Triglycerides (30-150) mg/dL Cholesterol (50-200) mg/dL LDL Cholesterol (30-100) mg/dL HDL Cholesterol (40-60) mg/dL Heart Disease Risk Ratio Amylase (30-110) U/L Lipase (23-300) U/L Serum HCG, Qual (NEGATIVE) Ethyl Alcohol (0-10) mg/dL 08/20/24 08/20/24 Range/Units 14:07 14:07 WBC (3.98-10.04) x10^3/uL RBC (3.93-5.22) x10^6/uL Hgb (11.2-15.7) g/dL Hct (34.1-44.9) % MCV (79.4-94.8) fL MCH (25.6-32.2) pg MCHC (32.2-35.5) g/dL RDW (11.7-14.4) % Plt Count (182-369) x10^3/uL MPV (9.4-12.3) fL Gran % (34.0-71.1) % Immature Gran % (Auto) (0.001-0.429) % Nucleat RBC Rel Count (0.00-0.2) % Eos # (Auto) (0.04-0.36) x10^3/uL Immature Gran # (Auto) (0.001-0.031) x10^3u/L Absolute Lymphs (auto) (1.18-3.74) x10^3/uL Absolute Monos (auto) (0.24-0.86) x10^3/uL Absolute Nucleated RBC (0.00-0.012) x10^3u/L Lymphocytes % (19.3-51.7) % Monocytes % (4.7-12.5) % Eosinophils % (0.7-5.8) % Basophils % (0.1-1.2) % Absolute Granulocytes (1.56-6.13) x10^3/uL Basophils # (0.01-0.08) x10^3/uL Sodium (135-145) mmol/L Potassium (3.5-5.1) mmol/L Chloride (98-107) mmol/L Carbon Dioxide (22-30) mmol/L Anion Gap (5-15) MEQ/L BUN (7-17) mg/dL Creatinine (0.52-1.04) mg/dL Estimated GFR ML/MIN Glucose (74-106) mg/dL Lactic Acid (0.4-2.0) Calcium (8.4-10.2) mg/dL Total Bilirubin (0.2-1.3) mg/dL AST (14-36) U/L ALT (0-35) U/L Alkaline Phosphatase (38-126) U/L Troponin I (0.000-0.033) ng/mL Serum Total Protein (6.3-8.2) g/dL Albumin (3.5-5.0) g/dL Triglycerides 140 (30-150) mg/dL Cholesterol 157 (50-200) mg/dL LDL Cholesterol 83 (30-100) mg/dL HDL Cholesterol 51 (40-60) mg/dL Heart Disease Risk Ratio 3.0 Amylase (30-110) U/L Lipase (23-300) U/L Serum HCG, Qual (NEGATIVE) Ethyl Alcohol < 10 (0-10) mg/dL - Radiology Impressions Radiology Exams & Impressions: Radiology Procedures Category Date Time Status ABDOMEN AND PELVIS W/0 CONTRAS [CT] Stat Exams 08/20/24 10:01 Completed Assessment/Plan (1) Acute alcoholic pancreatitis Current Visit: No Status: Acute Assessment & Plan: - Alcohol withdrawal protocol - LR @ 125 ml/hr - Morphine BLAST SETTER - Narcan PRN - Amylase 216, Lipase 2215 - As seen on CT Abd/pelvis - CBC, CMP reviewed - NPO - Zofran Code(s): K85.20 - ALCOHOL INDUCED ACUTE PANCREATITIS WITHOUT NECROSIS OR INFCT (2) Hypokalemia Current Visit: Yes Status: Acute Assessment & Plan: - K+ 3.3- replaced - will recheck 2 hours after 1st bag Code(s): E87.6 - HYPOKALEMIA (3) Dehydration Current Visit: Yes Status: Acute Assessment & Plan: - anion gap 16.9- trend - IVF gave in ER Code(s): E86.0 - DEHYDRATION (4) Lactic acid acidosis Current Visit: Yes Status: Acute Assessment & Plan: - LA 2.4 on admission in ER - repeat after IVF 1.6 - 1 LNS gave at 10:44 AM Code(s): E87.20 - ACIDOSIS, UNSPECIFIED (5) Elevated liver transaminase level Current Visit: Yes Status: Acute Assessment & Plan: - AST 343, ALT 128- trend - Fatty liver seen on CT Code(s): R74.01 - ELEVATION OF LEVELS OF LIVER TRANSAMINASE LEVELS (6) Alcohol abuse Current Visit: No Status: Acute Code(s): F10.10 - ALCOHOL ABUSE, UNCOMPLICATED (7) Fatty liver Current Visit: No Status: Acute Code(s): K76.0 - FATTY (CHANGE OF) LIVER, NOT ELSEWHERE CLASSIFIED (8) History of alcohol withdrawal syndrome Current Visit: No Status: Acute Assessment & Plan: - Continue with OP rehab - Hx of intubation from DT's- watch closely - TELE Code(s): F10.91 - ALCOHOL USE, UNSPECIFIED, IN REMISSION (9) Tachycardia Current Visit: No Status: Acute Assessment & Plan: - Tele - as seen on monitor - beta kev started Code(s): R00.0 - TACHYCARDIA, UNSPECIFIED (10) HTN (hypertension) Current Visit: No Status: Chronic Assessment & Plan: - Amlodipine started and did not help so stopped - metoprolol 25mg BID started. VTE: Lovenox PPI: Protonix Next of KIN: D/C pland: 2-3 days Code status: Full Code(s): I10 - ESSENTIAL (PRIMARY) HYPERTENSION
[2024-08-20] MEDS: POTASSIUM CHLORIDE 20 mEq IN WATER 100ML 100 ML IV SCH (16:57)
[2024-08-20] MEDS ORDERED: Toprol Xl 50 MG PO SCH (17:15)
[2024-08-20 17:23] LABS: Appearance Clear (Clear); Bacteria None Seen /HPF (None Seen); Bilirubin Negative (Negative); Blood Negative (Negative); Epithelial Cells Rare /HPF (None Seen); Glucose, Urine Negative (Negative); Ketones Negative (Negative); Leukocyte Esterase Negative (Negative); Nitrite Negative (Negative); Protein,Urine Dip Trace (Negative); RBC 0-2 /HPF (0-5); WBC 0-2 /HPF (0-5)
[2024-08-20] MEDS: Lopressor 25MG Tab PO SCH (17:30)
[2024-08-20] MEDS: MAGNESIUM SULF 2 G/50 ML BAG 2 GM/50 ML PIGGYBACK IV ONE (18:57)
[2024-08-20] MEDS: Zofran 4 MG/2 ML VIAL IV PRN (20:48)
[2024-08-21] MEDS: Compazine 10 MG/2 ML IV PRN (02:18)
[2024-08-21 05:07] LABS: Absolute Neutrophil Ct (ANC) 6.21 x10^3/uL (1.56-6.13); BASOPHIL % 0.4 % (0.1-1.2); Basophil (Absolute #) 0.04 x10^3/uL (0.01-0.08); Eosinophil % 2.1 % (0.7-5.8); Eosinophil (Absolute #) 0.19 x10^3/uL (0.04-0.36); Hematocrit 38.5 % (34.1-44.9); Hemoglobin 12.6 g/dL (11.2-15.7); IMMATURE GRAN # 0.03 x10^3u/L (0.001-0.031); IMMATURE GRAN % 0.3 % (0.001-0.429); Lymphocyte (Absolute #) 1.89 x10^3/uL (1.18-3.74); Lymphocytes % 21.1 % (19.3-51.7); Mean Cell Volume 85.2 fL (79.4-94.8); Mean Corpuscular Hemoglobin 27.9 pg (25.6-32.2); Mean Corpuscular Hgb Concent. 32.7 g/dL (32.2-35.5); Mean Platelet Volume 9.7 fL (9.4-12.3); Monocytes % 6.7 % (4.7-12.5); Neutrophil % 69.4 % (34.0-71.1); Platelet Count 283 x10^3/uL (182-369); Red Blood Count 4.52 x10^6/uL (3.93-5.22)
[2024-08-21 05:31] LABS: ALBUMIN 3.4 g/dL (3.5-5.0); ANION GAP 11.2 MEQ/L (5-15); BILIRUBIN,TOTAL 1.3 mg/dL (0.2-1.3); Calcium 8.3 mg/dL (8.4-10.2); Creatinine 1 0.49 mg/dL (0.52-1.04); EST GLOMERULAR FILTRATION RATE 126.8 ML/MIN; Potassium 3.2 mmol/L (3.5-5.1); Total Protein 6.4 g/dL (6.3-8.2)
[2024-08-21] MEDS: POTASSIUM CHLORIDE 20 mEq IN WATER 100ML 100 ML IV SCH (08:13)
[2024-08-21] MEDS: PROTONIX 40 MG IV IV SCH (08:18)
[2024-08-21] MEDS: VITAMIN B-1 100 MG PO SCH (08:19)
[2024-08-21] MEDS: ENOXAPARIN SODIUM SQ SCH (08:19)
[2024-08-21] MEDS: FOLATE 1 MG PO SCH (08:20)
[2024-08-21] MEDS: THERAGRAN MULTIVITAMIN PO SCH (08:20)
--- NOTE | 2024-08-21 11:16 | PCM.NOTE ---
Date and Time: 08/21/24 1111 Subjective Assessment: 08/20/24 is a 33 year old female with past medical history of migraines, cholecystectomy, and pancreatitis. She presented to our ED for evaluation of epigastric pain that started over a week ago and worsened 2 days ago with N/V. Patient states she is unable to tolerate oral intake. Pain described as an ache, no radiation. Patient reports that she no longer has her gallbladder. Physical exam reveals epigastric tenderness. Overlying soft tissue intact. No signs of trauma. Symptoms are moderate in intensity. Palpation reproduces pain. Pain improved somewhat with rest. CT shows diffuse pancreatitis with duodenitis, and fatty liver. Pt made NPO and IVF started. She admits to drinking bourbon recently. She states she is in a treatment program that is online via [employer]. She is wanting to get into a pain mgnt program for OP pain control. She wants to quit drinking she reports and had a relapse. Alcohol withdrawl protocol started. Morphine SOFTWARE INTEGRATOR and nausea meds started. BP elevated and will start metoprolol BID. She denies any further concerns at this time. 08/21/24 Pt resting in bed. She explained abd. pain has improved and now isolated to LLQ. Will continue alcohol withdrawal protocol, SOFTWARE INTEGRATOR Morphine, and LR IVF. Pt to remain NPO. She would like to be able to eat tomorrow if possible. HR remains tachycardic despite starting beta kev. BP improved today. Liver enzymes improved. K+3.2 and replaced. She denies CP, SOB, N/V/D. - Review of Systems Constitutional: No Fever, No Chills Eyes: No Symptoms Ears, Nose, & Throat: No Symptoms Respiratory: No Cough, No Short Of Breath Cardiac: No Chest Pain, No Edema, No Syncope Abdominal/Gastrointestinal: Abdominal Pain (LUQ), No Nausea, No Vomiting, No Diarrhea Genitourinary Symptoms: No Dysuria Musculoskeletal: No Back Pain, No Neck Pain Skin: No Rash Neurological: Tremors, No Dizziness, No Focal Weakness, No Sensory Changes Psychological: No Symptoms Endocrine: No Symptoms Hematologic/Lymphatic: No Symptoms Immunological/Allergic: No Symptoms Objective Exam General Appearance: no apparent distress, alert Neurologic Exam: alert, oriented x 3, cooperative, normal mood/affect, nml cerebellar function, sensation nml, No motor deficits Skin Exam: normal color, warm, dry Eye Exam: PERRL, EOMI, eyes nml inspection Ears, Nose, Throat Exam: normal ENT inspection, pharynx normal, moist mucous membranes Neck Exam: normal inspection, non-tender, supple, full range of motion Respiratory Exam: normal breath sounds, lungs clear, No respiratory distress Cardiovascular Exam: regular rate/rhythm, normal heart sounds, tachycardia Gastrointestinal/Abdomen Exam: soft, normal bowel sounds, tenderness (LUQ), No mass Extremity Exam: normal inspection, normal range of motion Back Exam: normal inspection, normal range of motion, No CVA tenderness, No vertebral tenderness Pelvic Exam: deferred Rectal Exam: deferred Objective Data Vital Signs: Vital Signs - 24 hr Temp Pulse Resp BP BP Pulse Ox 08/21/24 07:32 97.7 F 121 H 16 124/94 96 08/21/24 07:24 19 100 08/21/24 04:00 19 100 08/21/24 03:32 103 H 13 08/21/24 03:03 97.6 F 105 H 19 128/88 100 08/21/24 00:00 17 100 08/20/24 23:31 97.3 F 104 H 17 128/83 100 08/20/24 20:00 17 99 08/20/24 19:51 98.4 F 96 H 17 143/101 99 08/20/24 19:09 16 94 L 08/20/24 16:00 97.8 F 119 H 19 162/106 98 08/20/24 15:29 16 100 08/20/24 13:59 97 08/20/24 13:34 98 F 118 H 18 156/103 98 08/20/24 13:00 110 H 17 136/105 95 08/20/24 12:30 107 H 15 142/114 96 08/20/24 12:28 99 08/20/24 12:00 122 H 27 H 141/108 100 08/20/24 11:30 107 H 15 145/102 97 Pain Assessment - Last Documented Pain Intensity 9 Pain Scale Used 0-10 Pain Scale Intake and Output: Intake & Output 08/18/24 08/19/24 08/20/24 08/21/24 11:59 11:59 11:59 11:59 Intake Total 2818 Balance 2818 Weight 57.606 kg 93.6 kg Lab Results: Lab Results-Last 24 Hours 08/20/24 08/20/24 08/20/24 Range/Units 12:16 14:07 14:07 WBC (3.98-10.04) x10^3/uL RBC (3.93-5.22) x10^6/uL Hgb (11.2-15.7) g/dL Hct (34.1-44.9) % MCV (79.4-94.8) fL MCH (25.6-32.2) pg MCHC (32.2-35.5) g/dL RDW (11.7-14.4) % Plt Count (182-369) x10^3/uL MPV (9.4-12.3) fL Gran % (34.0-71.1) % Immature Gran % (Auto) (0.001-0.429) % Nucleat RBC Rel Count (0.00-0.2) % Eos # (Auto) (0.04-0.36) x10^3/uL Immature Gran # (Auto) (0.001-0.031) x10^3u/L Absolute Lymphs (auto) (1.18-3.74) x10^3/uL Absolute Monos (auto) (0.24-0.86) x10^3/uL Absolute Nucleated RBC (0.00-0.012) x10^3u/L Lymphocytes % (19.3-51.7) % Monocytes % (4.7-12.5) % Eosinophils % (0.7-5.8) % Basophils % (0.1-1.2) % Absolute Granulocytes (1.56-6.13) x10^3/uL Basophils # (0.01-0.08) x10^3/uL Sodium (135-145) mmol/L Potassium (3.5-5.1) mmol/L Chloride (98-107) mmol/L Carbon Dioxide (22-30) mmol/L Anion Gap (5-15) MEQ/L BUN (7-17) mg/dL Creatinine (0.52-1.04) mg/dL Estimated GFR ML/MIN Glucose (74-106) mg/dL Lactic Acid 1.6 (0.4-2.0) Calcium (8.4-10.2) mg/dL Magnesium (1.6-2.3) mg/dL Total Bilirubin (0.2-1.3) mg/dL AST (14-36) U/L ALT (0-35) U/L Alkaline Phosphatase (38-126) U/L Troponin I < 0.012 (0.000-0.033) ng/mL Serum Total Protein (6.3-8.2) g/dL Albumin (3.5-5.0) g/dL Triglycerides (30-150) mg/dL Cholesterol (50-200) mg/dL LDL Cholesterol (30-100) mg/dL HDL Cholesterol (40-60) mg/dL Heart Disease Risk Ratio Urine Color (Yellow) Urine Appearance (Clear) Urine pH (4.6-8.0) Ur Specific [place] (1.005-1.030) Urine Protein (Negative) Urine Glucose (UA) (Negative) mg/dL Urine Ketones (Negative) Urine Blood (Negative) Urine Nitrite (Negative) Urine Bilirubin (Negative) Urine Urobilinogen (0.2) mg/dL Ur Leukocyte Esterase (Negative) U Hyaline Cast (Auto) (0-2) /LPF Urine Microscopic RBC (0-5) /HPF Urine Microscopic WBC (0-5) /HPF Ur Epithelial Cells (None Seen) /HPF Urine Bacteria (None Seen) /HPF Urine Culture Reflexed (NO) Ethyl Alcohol < 10 (0-10) mg/dL 08/20/24 08/20/24 08/20/24 Range/Units 14:07 14:07 17:03 WBC (3.98-10.04) x10^3/uL RBC (3.93-5.22) x10^6/uL Hgb (11.2-15.7) g/dL Hct (34.1-44.9) % MCV (79.4-94.8) fL MCH (25.6-32.2) pg MCHC (32.2-35.5) g/dL RDW (11.7-14.4) % Plt Count (182-369) x10^3/uL MPV (9.4-12.3) fL Gran % (34.0-71.1) % Immature Gran % (Auto) (0.001-0.429) % Nucleat RBC Rel Count (0.00-0.2) % Eos # (Auto) (0.04-0.36) x10^3/uL Immature Gran # (Auto) (0.001-0.031) x10^3u/L Absolute Lymphs (auto) (1.18-3.74) x10^3/uL Absolute Monos (auto) (0.24-0.86) x10^3/uL Absolute Nucleated RBC (0.00-0.012) x10^3u/L Lymphocytes % (19.3-51.7) % Monocytes % (4.7-12.5) % Eosinophils % (0.7-5.8) % Basophils % (0.1-1.2) % Absolute Granulocytes (1.56-6.13) x10^3/uL Basophils # (0.01-0.08) x10^3/uL Sodium (135-145) mmol/L Potassium (3.5-5.1) mmol/L Chloride (98-107) mmol/L Carbon Dioxide (22-30) mmol/L Anion Gap (5-15) MEQ/L BUN (7-17) mg/dL Creatinine (0.52-1.04) mg/dL Estimated GFR ML/MIN Glucose (74-106) mg/dL Lactic Acid (0.4-2.0) Calcium (8.4-10.2) mg/dL Magnesium 1.5 L (1.6-2.3) mg/dL Total Bilirubin (0.2-1.3) mg/dL AST (14-36) U/L ALT (0-35) U/L Alkaline Phosphatase (38-126) U/L Troponin I (0.000-0.033) ng/mL Serum Total Protein (6.3-8.2) g/dL Albumin (3.5-5.0) g/dL Triglycerides 140 (30-150) mg/dL Cholesterol 157 (50-200) mg/dL LDL Cholesterol 83 (30-100) mg/dL HDL Cholesterol 51 (40-60) mg/dL Heart Disease Risk Ratio 3.0 Urine Color Dark Yellow A (Yellow) Urine Appearance Clear (Clear) Urine pH 6.0 (4.6-8.0) Ur Specific [place] 1.020 (1.005-1.030) Urine Protein Trace A (Negative) Urine Glucose (UA) Negative (Negative) mg/dL Urine Ketones Negative (Negative) Urine Blood Negative (Negative) Urine Nitrite Negative (Negative) Urine Bilirubin Negative (Negative) Urine Urobilinogen 1.0 A (0.2) mg/dL Ur Leukocyte Esterase Negative (Negative) U Hyaline Cast (Auto) 3-5 A (0-2) /LPF Urine Microscopic RBC 0-2 (0-5) /HPF Urine Microscopic WBC 0-2 (0-5) /HPF Ur Epithelial Cells Rare (None Seen) /HPF Urine Bacteria None Seen (None Seen) /HPF Urine Culture Reflexed NO (NO) Ethyl Alcohol (0-10) mg/dL 08/20/24 08/20/24 08/21/24 Range/Units 17:03 21:00 04:25 WBC 9.0 (3.98-10.04) x10^3/uL RBC 4.52 (3.93-5.22) x10^6/uL Hgb 12.6 (11.2-15.7) g/dL Hct 38.5 (34.1-44.9) % MCV 85.2 (79.4-94.8) fL MCH 27.9 (25.6-32.2) pg MCHC 32.7 (32.2-35.5) g/dL RDW 14.0 (11.7-14.4) % Plt Count 283 (182-369) x10^3/uL MPV 9.7 (9.4-12.3) fL Gran % 69.4 (34.0-71.1) % Immature Gran % (Auto) 0.3 (0.001-0.429) % Nucleat RBC Rel Count 0.0 (0.00-0.2) % Eos # (Auto) 0.19 (0.04-0.36) x10^3/uL Immature Gran # (Auto) 0.03 (0.001-0.031) x10^3u/L Absolute Lymphs (auto) 1.89 (1.18-3.74) x10^3/uL Absolute Monos (auto) 0.60 (0.24-0.86) x10^3/uL Absolute Nucleated RBC 0.00 (0.00-0.012) x10^3u/L Lymphocytes % 21.1 (19.3-51.7) % Monocytes % 6.7 (4.7-12.5) % Eosinophils % 2.1 (0.7-5.8) % Basophils % 0.4 (0.1-1.2) % Absolute Granulocytes 6.21 H (1.56-6.13) x10^3/uL Basophils # 0.04 (0.01-0.08) x10^3/uL Sodium (135-145) mmol/L Potassium 4.0 D (3.5-5.1) mmol/L Chloride (98-107) mmol/L Carbon Dioxide (22-30) mmol/L Anion Gap (5-15) MEQ/L BUN (7-17) mg/dL Creatinine (0.52-1.04) mg/dL Estimated GFR ML/MIN Glucose (74-106) mg/dL Lactic Acid (0.4-2.0) Calcium (8.4-10.2) mg/dL Magnesium (1.6-2.3) mg/dL Total Bilirubin (0.2-1.3) mg/dL AST (14-36) U/L ALT (0-35) U/L Alkaline Phosphatase (38-126) U/L Troponin I < 0.012 (0.000-0.033) ng/mL Serum Total Protein (6.3-8.2) g/dL Albumin (3.5-5.0) g/dL Triglycerides (30-150) mg/dL Cholesterol (50-200) mg/dL LDL Cholesterol (30-100) mg/dL HDL Cholesterol (40-60) mg/dL Heart Disease Risk Ratio Urine Color (Yellow) Urine Appearance (Clear) Urine pH (4.6-8.0) Ur Specific [place] (1.005-1.030) Urine Protein (Negative) Urine Glucose (UA) (Negative) mg/dL Urine Ketones (Negative) Urine Blood (Negative) Urine Nitrite (Negative) Urine Bilirubin (Negative) Urine Urobilinogen (0.2) mg/dL Ur Leukocyte Esterase (Negative) U Hyaline Cast (Auto) (0-2) /LPF Urine Microscopic RBC (0-5) /HPF Urine Microscopic WBC (0-5) /HPF Ur Epithelial Cells (None Seen) /HPF Urine Bacteria (None Seen) /HPF Urine Culture Reflexed (NO) Ethyl Alcohol (0-10) mg/dL 08/21/24 Range/Units 04:25 WBC (3.98-10.04) x10^3/uL RBC (3.93-5.22) x10^6/uL Hgb (11.2-15.7) g/dL Hct (34.1-44.9) % MCV (79.4-94.8) fL MCH (25.6-32.2) pg MCHC (32.2-35.5) g/dL RDW (11.7-14.4) % Plt Count (182-369) x10^3/uL MPV (9.4-12.3) fL Gran % (34.0-71.1) % Immature Gran % (Auto) (0.001-0.429) % Nucleat RBC Rel Count (0.00-0.2) % Eos # (Auto) (0.04-0.36) x10^3/uL Immature Gran # (Auto) (0.001-0.031) x10^3u/L Absolute Lymphs (auto) (1.18-3.74) x10^3/uL Absolute Monos (auto) (0.24-0.86) x10^3/uL Absolute Nucleated RBC (0.00-0.012) x10^3u/L Lymphocytes % (19.3-51.7) % Monocytes % (4.7-12.5) % Eosinophils % (0.7-5.8) % Basophils % (0.1-1.2) % Absolute Granulocytes (1.56-6.13) x10^3/uL Basophils # (0.01-0.08) x10^3/uL Sodium 132 L (135-145) mmol/L Potassium 3.2 L (3.5-5.1) mmol/L Chloride 98 (98-107) mmol/L Carbon Dioxide 26 (22-30) mmol/L Anion Gap 11.2 (5-15) MEQ/L BUN 4 L (7-17) mg/dL Creatinine 0.49 L (0.52-1.04) mg/dL Estimated GFR 126.8 ML/MIN Glucose 106 (74-106) mg/dL Lactic Acid (0.4-2.0) Calcium 8.3 L (8.4-10.2) mg/dL Magnesium 2.0 (1.6-2.3) mg/dL Total Bilirubin 1.30 (0.2-1.3) mg/dL AST 195 H (14-36) U/L ALT 89 H (0-35) U/L Alkaline Phosphatase 212 H (38-126) U/L Troponin I (0.000-0.033) ng/mL Serum Total Protein 6.4 (6.3-8.2) g/dL Albumin 3.4 L (3.5-5.0) g/dL Triglycerides (30-150) mg/dL Cholesterol (50-200) mg/dL LDL Cholesterol (30-100) mg/dL HDL Cholesterol (40-60) mg/dL Heart Disease Risk Ratio Urine Color (Yellow) Urine Appearance (Clear) Urine pH (4.6-8.0) Ur Specific [place] (1.005-1.030) Urine Protein (Negative) Urine Glucose (UA) (Negative) mg/dL Urine Ketones (Negative) Urine Blood (Negative) Urine Nitrite (Negative) Urine Bilirubin (Negative) Urine Urobilinogen (0.2) mg/dL Ur Leukocyte Esterase (Negative) U Hyaline Cast (Auto) (0-2) /LPF Urine Microscopic RBC (0-5) /HPF Urine Microscopic WBC (0-5) /HPF Ur Epithelial Cells (None Seen) /HPF Urine Bacteria (None Seen) /HPF Urine Culture Reflexed (NO) Ethyl Alcohol (0-10) mg/dL Radiology Exams: Radiology Procedures Category Date Time Status ABDOMEN AND PELVIS W/0 CONTRAS [CT] Stat Exams 08/20/24 10:01 Completed Multi-Disciplinary Progress Notes: Multi-Disciplinary Progress Notes 08/21/24 10:29 Case Management Note by Vira Campbell PATIENT GIVEN SEVERAL HANDOUTS ON OUTPT TREATMENT OPTIONS IN THE AREA Initialized on 08/21/24 10:29 - END OF NOTE Assessment/Plan (1) Acute alcoholic pancreatitis Current Visit: No Status: Acute Code(s): K85.20 - ALCOHOL INDUCED ACUTE PANCREATITIS WITHOUT NECROSIS OR INFCT (2) Hypokalemia Current Visit: Yes Status: Acute Code(s): E87.6 - HYPOKALEMIA (3) Dehydration Current Visit: Yes Status: Acute Code(s): E86.0 - DEHYDRATION (4) Lactic acid acidosis Current Visit: Yes Status: Acute Code(s): E87.20 - ACIDOSIS, UNSPECIFIED (5) Elevated liver transaminase level Current Visit: Yes Status: Acute Code(s): R74.01 - ELEVATION OF LEVELS OF LIVER TRANSAMINASE LEVELS (6) Alcohol abuse Current Visit: No Status: Acute Code(s): F10.10 - ALCOHOL ABUSE, UNCOMPLICATED (7) Fatty liver Current Visit: No Status: Acute Code(s): K76.0 - FATTY (CHANGE OF) LIVER, NOT ELSEWHERE CLASSIFIED (8) History of alcohol withdrawal syndrome Current Visit: No Status: Acute Code(s): F10.91 - ALCOHOL USE, UNSPECIFIED, IN REMISSION (9) Tachycardia Current Visit: No Status: Acute Code(s): R00.0 - TACHYCARDIA, UNSPECIFIED (10) HTN (hypertension) Current Visit: No Status: Chronic Assessment & Plan: (1) Acute alcoholic pancreatitis Current Visit: No Status: Acute Assessment & Plan: - Alcohol withdrawal protocol - LR @ 125 ml/hr - Morphine SOFTWARE INTEGRATOR - Narcan PRN - Amylase 216, Lipase 2215 - As seen on CT Abd/pelvis - CBC, CMP reviewed - NPO - Zofran 08/21 - NPO - Zofran - CBC, CMP reviewed - Alcohol withdrawal protocol - LR @ 125 ml/hr - Morphine SOFTWARE INTEGRATOR- dose decreased to 1mg Q 30 minutes Code(s): K85.20 - ALCOHOL INDUCED ACUTE PANCREATITIS WITHOUT NECROSIS OR INFCT (2) Hypokalemia Current Visit: Yes Status: Acute Assessment & Plan: - K+ 3.3- replaced - will recheck 2 hours after 1st bag 08/21 - K+ 3.2- replaced per protocol Code(s): E87.6 - HYPOKALEMIA (3) Dehydration Current Visit: Yes Status: Acute Assessment & Plan: - anion gap 16.9- trend - IVF gave in ER 08/21 - resolved Code(s): E86.0 - DEHYDRATION (4) Lactic acid acidosis Current Visit: Yes Status: Acute Assessment & Plan: - LA 2.4 on admission in ER - repeat after IVF 1.6 - 1 LNS gave at 10:44 AM Code(s): E87.20 - ACIDOSIS, UNSPECIFIED (5) Elevated liver transaminase level Current Visit: Yes Status: Acute Assessment & Plan: - AST 343, ALT 128- trend - Fatty liver seen on CT 08/21 - Post d/c appointment made with [facility] - AST 195, ALT 89-improved Code(s): R74.01 - ELEVATION OF LEVELS OF LIVER TRANSAMINASE LEVELS (6) Alcohol abuse Current Visit: No Status: Acute Code(s): F10.10 - ALCOHOL ABUSE, UNCOMPLICATED - [facility] protocol - Recommended OP f/u for addiction- refuses IP program - alcohol level <10 (7) Fatty liver Current Visit: No Status: Acute Code(s): K76.0 - FATTY (CHANGE OF) LIVER, NOT ELSEWHERE CLASSIFIED - as seen on CT with need OP f/u with GI (8) History of alcohol withdrawal syndrome Current Visit: No Status: Acute Assessment & Plan: - Continue with OP rehab - Hx of intubation from DT's- watch closely - TELE Code(s): F10.91 - ALCOHOL USE, UNSPECIFIED, IN REMISSION (9) Tachycardia Current Visit: No Status: Acute Assessment & Plan: - Tele - as seen on monitor - beta kev started 08/26 - HR improved- continued tachycardia HR low 100's Code(s): R00.0 - TACHYCARDIA, UNSPECIFIED (10) HTN (hypertension) Current Visit: No Status: Chronic Assessment & Plan: - Amlodipine started and did not help so stopped - metoprolol 25mg BID started. 08/21 - improved Code(s): I10 - ESSENTIAL (PRIMARY) HYPERTENSION (11) Hypomagnesemia Current Visit: Yes Status: Acute Assessment & Plan: - 08/20- MG+ 1.5- replaced 08/21- resolved VTE: Lovenox PPI: Protonix Next of KIN: D/C plan: 2-3 days Code status: Full Code(s): E83.42 - HYPOMAGNESEMIA
[2024-08-21] MEDS: Morphine PCA 1 MG/ML IV PRN (21:59)
[2024-08-22 05:46] LABS: Hematocrit 37.4 % (34.1-44.9); Hemoglobin 11.9 g/dL (11.2-15.7); Mean Cell Volume 87.4 fL (79.4-94.8); Mean Corpuscular Hemoglobin 27.8 pg (25.6-32.2); Mean Corpuscular Hgb Concent. 31.8 g/dL (32.2-35.5); Mean Platelet Volume 9.4 fL (9.4-12.3); Platelet Count 258 x10^3/uL (182-369); Red Blood Count 4.28 x10^6/uL (3.93-5.22); Red Cell Distribution Width 14.4 % (11.7-14.4); White Blood Count 6.6 x10^3/uL (3.98-10.04)
[2024-08-22 06:02] LABS: ALBUMIN 3.1 g/dL (3.5-5.0); ANION GAP 10.1 MEQ/L (5-15); BILIRUBIN,TOTAL 0.9 mg/dL (0.2-1.3); Calcium 8.6 mg/dL (8.4-10.2); Creatinine 1 0.5 mg/dL (0.52-1.04); EST GLOMERULAR FILTRATION RATE 126.1 ML/MIN; MAGNESIUM 1.8 mg/dL (1.6-2.3); Potassium 3.5 mmol/L (3.5-5.1); Total Protein 5.9 g/dL (6.3-8.2)
--- NOTE | 2024-08-22 07:52 | PCM.NOTE ---
Date and Time: 08/22/24 0750 Subjective Assessment: 08/20/24 is a 33 year old female with past medical history of migraines, cholecystectomy, and pancreatitis. She presented to our ED for evaluation of epigastric pain that started over a week ago and worsened 2 days ago with N/V. Patient states she is unable to tolerate oral intake. Pain described as an ache, no radiation. Patient reports that she no longer has her gallbladder. Physical exam reveals epigastric tenderness. Overlying soft tissue intact. No signs of trauma. Symptoms are moderate in intensity. Palpation reproduces pain. Pain improved somewhat with rest. CT shows diffuse pancreatitis with duodenitis, and fatty liver. Pt made NPO and IVF started. She admits to drinking bourbon recently. She states she is in a treatment program that is online via [employer]. She is wanting to get into a pain mgnt program for OP pain control. She wants to quit drinking she reports and had a relapse. Alcohol withdrawl protocol started. 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 BP elevated and will start metoprolol BID. She denies any further concerns at this time. 08/21/24 Pt resting in bed. She explained abd. pain has improved and now isolated to LLQ. Will continue alcohol withdrawal protocol, FOUR CORNER STAYER MACHINE OPERATOR Morphine, and LR IVF. Pt to remain NPO. She would like to be able to eat tomorrow if possible. HR remains tachycardic despite starting beta kev. BP improved today. Liver enzymes improved. K+3.2 and replaced. She denies CP, SOB, N/V/D. 08/22/24 Pt resting in bed. She states she is having a panic attack that woke her from a dream. One time dose of Ativan 0.25 gave IV. She reports she is otherwise feeling better. LUQ pain has resolved. She has some RUQ pain with palpation. She admits to drinking and eating last night. Will start soft diet and transition as tolerated. Will start PO pain meds when she has ate so not to upset her stomach with oral pain meds. AST/ALT, Lipase, WBC all improved. She did report some nausea last night. She currently denies CP, SOB, N/V/D. - Review of Systems Constitutional: No Fever, No Chills Eyes: No Symptoms Ears, Nose, & Throat: No Symptoms Respiratory: No Cough, No Short Of Breath Cardiac: No Chest Pain, No Edema, No Syncope Abdominal/Gastrointestinal: Abdominal Pain (RUQ), No Nausea, No Vomiting, No Diarrhea Genitourinary Symptoms: No Dysuria Musculoskeletal: No Back Pain, No Neck Pain Skin: No Rash Neurological: No Dizziness, No Focal Weakness, No Sensory Changes Psychological: No Symptoms, Anxiety Endocrine: No Symptoms Hematologic/Lymphatic: No Symptoms Immunological/Allergic: No Symptoms Objective Exam General Appearance: no apparent distress, alert Neurologic Exam: alert, oriented x 3, cooperative, normal mood/affect, nml cerebellar function, sensation nml, No motor deficits Skin Exam: normal color, warm, dry Eye Exam: PERRL, EOMI, eyes nml inspection Ears, Nose, Throat Exam: normal ENT inspection, pharynx normal, moist mucous membranes Neck Exam: normal inspection, non-tender, supple, full range of motion Respiratory Exam: normal breath sounds, lungs clear, No respiratory distress Cardiovascular Exam: regular rate/rhythm, normal heart sounds Gastrointestinal/Abdomen Exam: soft, tenderness (RUQ), No mass Extremity Exam: normal inspection, normal range of motion Back Exam: normal inspection, normal range of motion, No CVA tenderness, No vertebral tenderness Pelvic Exam: deferred Rectal Exam: deferred Objective Data Vital Signs: Vital Signs - 24 hr Temp Pulse Resp BP Pulse Ox 08/22/24 07:12 97.7 F 110 H 22 146/97 97 08/22/24 07:07 14 95 08/22/24 05:46 12 97 08/22/24 04:00 109 H 16 145/101 97 08/22/24 01:59 14 96 08/21/24 23:51 98.6 F 92 H 11 L 111/73 96 08/21/24 21:59 17 95 08/21/24 20:00 97.9 F 100 H 15 130/93 100 08/21/24 19:19 20 99 08/21/24 16:00 97 F 92 H 18 137/105 98 08/21/24 15:24 16 100 08/21/24 11:52 97.6 F 77 16 118/80 97 08/21/24 11:24 16 100 Pain Assessment - Last Documented Pain Intensity 9 Pain Scale Used 0-10 Pain Scale Intake and Output: Intake & Output 08/19/24 08/20/24 08/21/24 08/22/24 11:59 11:59 11:59 11:59 Intake Total 2818 2908 Output Total 150 Balance 2818 2758 Weight 57.606 kg 93.6 kg Lab Results: Lab Results-Last 24 Hours 08/21/24 08/22/24 08/22/24 Range/Units 14:37 05:10 05:10 WBC 6.6 (3.98-10.04) x10^3/uL RBC 4.28 (3.93-5.22) x10^6/uL Hgb 11.9 (11.2-15.7) g/dL Hct 37.4 (34.1-44.9) % MCV 87.4 (79.4-94.8) fL MCH 27.8 (25.6-32.2) pg MCHC 31.8 L (32.2-35.5) g/dL RDW 14.4 (11.7-14.4) % Plt Count 258 (182-369) x10^3/uL MPV 9.4 (9.4-12.3) fL Sodium (135-145) mmol/L Potassium 4.0 D (3.5-5.1) mmol/L Chloride (98-107) mmol/L Carbon Dioxide (22-30) mmol/L Anion Gap (5-15) MEQ/L BUN (7-17) mg/dL Creatinine (0.52-1.04) mg/dL Estimated GFR ML/MIN Glucose (74-106) mg/dL Calcium (8.4-10.2) mg/dL Magnesium (1.6-2.3) mg/dL Total Bilirubin (0.2-1.3) mg/dL AST (14-36) U/L ALT (0-35) U/L Alkaline Phosphatase (38-126) U/L Serum Total Protein (6.3-8.2) g/dL Albumin (3.5-5.0) g/dL Lipase 1268 H (23-300) U/L 08/22/24 Range/Units 05:10 WBC (3.98-10.04) x10^3/uL RBC (3.93-5.22) x10^6/uL Hgb (11.2-15.7) g/dL Hct (34.1-44.9) % MCV (79.4-94.8) fL MCH (25.6-32.2) pg MCHC (32.2-35.5) g/dL RDW (11.7-14.4) % Plt Count (182-369) x10^3/uL MPV (9.4-12.3) fL Sodium 135 (135-145) mmol/L Potassium 3.5 (3.5-5.1) mmol/L Chloride 104 (98-107) mmol/L Carbon Dioxide 25 (22-30) mmol/L Anion Gap 10.1 (5-15) MEQ/L BUN 2 L (7-17) mg/dL Creatinine 0.50 L (0.52-1.04) mg/dL Estimated GFR 126.1 ML/MIN Glucose 113 H (74-106) mg/dL Calcium 8.6 (8.4-10.2) mg/dL Magnesium 1.8 (1.6-2.3) mg/dL Total Bilirubin 0.90 (0.2-1.3) mg/dL AST 122 H (14-36) U/L ALT 64 H (0-35) U/L Alkaline Phosphatase 183 H (38-126) U/L Serum Total Protein 5.9 L (6.3-8.2) g/dL Albumin 3.1 L (3.5-5.0) g/dL Lipase (23-300) U/L Radiology Exams: Radiology Procedures Category Date Time Status ABDOMEN AND PELVIS W/0 CONTRAS [CT] Stat Exams 08/20/24 10:01 Completed Multi-Disciplinary Progress Notes: Multi-Disciplinary Progress Notes 08/21/24 10:29 Case Management Note by Vira Campbell PATIENT GIVEN SEVERAL HANDOUTS ON OUTPT TREATMENT OPTIONS IN THE AREA Initialized on 08/21/24 10:29 - END OF NOTE Assessment/Plan (1) Acute alcoholic pancreatitis Current Visit: No Status: Acute Code(s): K85.20 - ALCOHOL INDUCED ACUTE PANCREATITIS WITHOUT NECROSIS OR INFCT (2) Hypokalemia Current Visit: Yes Status: Acute Code(s): E87.6 - HYPOKALEMIA (3) Dehydration Current Visit: Yes Status: Acute Code(s): E86.0 - DEHYDRATION (4) Lactic acid acidosis Current Visit: Yes Status: Acute Code(s): E87.20 - ACIDOSIS, UNSPECIFIED (5) Elevated liver transaminase level Current Visit: Yes Status: Acute Code(s): R74.01 - ELEVATION OF LEVELS OF LIVER TRANSAMINASE LEVELS (6) Alcohol abuse Current Visit: No Status: Acute Code(s): F10.10 - ALCOHOL ABUSE, UNCOMPLICATED (7) Fatty liver Current Visit: No Status: Acute Code(s): K76.0 - FATTY (CHANGE OF) LIVER, NOT ELSEWHERE CLASSIFIED (8) History of alcohol withdrawal syndrome Current Visit: No Status: Acute Code(s): F10.91 - ALCOHOL USE, UNSPECIFIED, IN REMISSION (9) Tachycardia Current Visit: No Status: Acute Code(s): R00.0 - TACHYCARDIA, UNSPECIFIED (10) HTN (hypertension) Current Visit: No Status: Chronic Code(s): I10 - ESSENTIAL (PRIMARY) HYPERTENSION (11) Hypomagnesemia Current Visit: Yes Status: Acute Assessment & Plan: (1) Acute alcoholic pancreatitis Current Visit: No Status: Acute Assessment & Plan: - Alcohol withdrawal protocol - LR @ 125 ml/hr - Morphine FOUR [employer]NER STAYER MACHINE OPERATOR - Narcan PRN - Amylase 216, Lipase 2215 - As seen on CT Abd/pelvis - CBC, CMP reviewed - NPO - Zofran, compazine 08/21 - NPO - Zofran - CBC, CMP reviewed - Alcohol withdrawal protocol - LR @ 125 ml/hr - Morphine FOUR [employer]NER STAYER MACHINE OPERATOR- dose decreased to 1mg Q 30 minutes 08/22 - Transition diet as tolerated. - D/C morphine, start oral narcotic pain med - alcohol withdrawal protocol - CBC, CMP reviewed - Liapse 1268- improved - AST 122/ALT 64 - Code(s): K85.20 - ALCOHOL INDUCED ACUTE PANCREATITIS WITHOUT NECROSIS OR INFCT (2) Hypokalemia Current Visit: Yes Status: Acute Assessment & Plan: - K+ 3.3- replaced - will recheck 2 hours after 1st bag 08/21 - K+ 3.2- replaced per protocol 08/22 - K+ 3.5- ok Code(s): E87.6 - HYPOKALEMIA (3) Dehydration Current Visit: Yes Status: Acute Assessment & Plan: - anion gap 16.9- trend - IVF gave in ER 08/21 - resolved Code(s): E86.0 - DEHYDRATION (4) Lactic acid acidosis Current Visit: Yes Status: Acute Assessment & Plan: - LA 2.4 on admission in ER- - 1 LNS gave at 10:44 AM - repeat after IVF 1.6 Code(s): E87.20 - ACIDOSIS, UNSPECIFIED (5) Elevated liver transaminase level Current Visit: Yes Status: Acute Assessment & Plan: - AST 343, ALT 128- trend - Fatty liver seen on CT 08/21 - Post d/c appointment made with [facility] - AST 195, ALT 89-improved 08/22 - AST 122, ALT 64- improved Code(s): R74.01 - ELEVATION OF LEVELS OF LIVER TRANSAMINASE LEVELS (6) Alcohol abuse Current Visit: No Status: Acute Code(s): F10.10 - ALCOHOL ABUSE, UNCOMPLICATED - [facility] protocol - Recommended OP f/u for addiction- refuses IP program- case management provided information - alcohol level <10 (7) Fatty liver Current Visit: No Status: Acute Code(s): K76.0 - FATTY (CHANGE OF) LIVER, NOT ELSEWHERE CLASSIFIED - as seen on CT with need OP f/u with GI (8) History of alcohol withdrawal syndrome Current Visit: No Status: Acute Assessment & Plan: - Continue with OP rehab - Hx of intubation from DT's- watch closely - TELE Code(s): F10.91 - ALCOHOL USE, UNSPECIFIED, IN REMISSION (9) Tachycardia Current Visit: No Status: Acute Assessment & Plan: - Tele - as seen on monitor - beta kev started 08/26 - HR improved- continued tachycardia HR low 100's Code(s): R00.0 - TACHYCARDIA, UNSPECIFIED (10) HTN (hypertension) Current Visit: No Status: Chronic Assessment & Plan: - Amlodipine started and did not help so stopped - metoprolol 25mg BID started. 08/21 - improved Code(s): I10 - ESSENTIAL (PRIMARY) HYPERTENSION (11) Hypomagnesemia Current Visit: Yes Status: Acute Assessment & Plan: - 08/20- MG+ 1.5- replaced 08/21- resolved VTE: Lovenox PPI: Protonix Next of KIN: D/C plan: 1-2 days Code status: Full Code(s): E83.42 - HYPOMAGNESEMIA Code(s): E83.42 - HYPOMAGNESEMIA
[2024-08-22] MEDS ORDERED: NORCO 10-325 MG PO PRN (09:16)
[2024-08-22] MEDS: NORCO 10-325 MG PO PRN (11:44)
[2024-08-22] MEDS: Docusate Sodium 100 MG PO PRN (12:54)
[2024-08-22] MEDS: MORPHINE SULFATE 2 MG INJ IV PRN (20:23)
[2024-08-22] MEDS: Ativan 0.5 MG PO PRN (21:26)
[2024-08-23 06:19] LABS: Hematocrit 42.3 % (34.1-44.9); Hemoglobin 13.4 g/dL (11.2-15.7); Mean Cell Volume 86.9 fL (79.4-94.8); Mean Corpuscular Hemoglobin 27.5 pg (25.6-32.2); Mean Corpuscular Hgb Concent. 31.7 g/dL (32.2-35.5); Mean Platelet Volume 9.5 fL (9.4-12.3); Platelet Count 337 x10^3/uL (182-369); Red Blood Count 4.87 x10^6/uL (3.93-5.22); Red Cell Distribution Width 14.2 % (11.7-14.4); White Blood Count 8.2 x10^3/uL (3.98-10.04)
[2024-08-23 06:35] LABS: ALBUMIN 3.8 g/dL (3.5-5.0); ANION GAP 12.2 MEQ/L (5-15); BILIRUBIN,TOTAL 0.8 mg/dL (0.2-1.3); Calcium 9.4 mg/dL (8.4-10.2); Creatinine 1 0.56 mg/dL (0.52-1.04); EST GLOMERULAR FILTRATION RATE 122.7 ML/MIN; Potassium 3.8 mmol/L (3.5-5.1); Total Protein 7.1 g/dL (6.3-8.2)
--- NOTE | 2024-08-23 11:05 | PCM.NOTE ---
Date and Time: 08/23/24 1059 Subjective Assessment: 08/20/24 is a 33 year old female with past medical history of migraines, cholecystectomy, and pancreatitis. She presented to our ED for evaluation of epigastric pain that started over a week ago and worsened 2 days ago with N/V. Patient states she is unable to tolerate oral intake. Pain described as an ache, no radiation. Patient reports that she no longer has her gallbladder. Physical exam reveals epigastric tenderness. Overlying soft tissue intact. No signs of trauma. Symptoms are moderate in intensity. Palpation reproduces pain. Pain improved somewhat with rest. CT shows diffuse pancreatitis with duodenitis, and fatty liver. Pt made NPO and IVF started. She admits to drinking bourbon recently. She states she is in a treatment program that is online via [email or web address]. She is wanting to get into a pain mgnt program for OP pain control. She wants to quit drinking she reports and had a relapse. Alcohol withdrawl protocol started. Morphine SLACK LINE YARDER and nausea meds started. BP elevated and will start metoprolol BID. She denies any further concerns at this time. 08/21/24 Pt resting in bed. She explained abd. pain has improved and now isolated to LLQ. Will continue alcohol withdrawal protocol, SLACK LINE YARDER Morphine, and LR IVF. Pt to remain NPO. She would like to be able to eat tomorrow if possible. HR remains tachycardic despite starting beta kev. BP improved today. Liver enzymes improved. K+3.2 and replaced. She denies CP, SOB, N/V/D. 08/22/24 Pt resting in bed. She states she is having a panic attack that woke her from a dream. One time dose of Ativan 0.25 gave IV. She reports she is otherwise feeling better. LUQ pain has resolved. She has some RUQ pain with palpation. She admits to drinking and eating last night. Will start soft diet and transition as tolerated. Will start PO pain meds when she has ate so not to upset her stomach with oral pain meds. AST/ALT, Lipase, WBC all improved. She did report some nausea last night. She currently denies CP, SOB, N/V/D. 08/23/24 Pt resting in bed. She states she had a rough night and had N/V and RUQ pain after eating. Morphine 1mg IV Q6 PRN started last night. She would like to start a clear liquid diet and go from there. Labs are overall improving. She reports a tolerable level of pain in RUQ today. Will keep pt another night and likely d/c tomorrow if tolerating food. - Review of Systems Constitutional: No Fever, No Chills Eyes: No Symptoms Ears, Nose, & Throat: No Symptoms Respiratory: No Cough, No Short Of Breath Cardiac: No Chest Pain, No Edema, No Syncope Abdominal/Gastrointestinal: Abdominal Pain (RUQ), Nausea, No Vomiting, No Diarrhea Genitourinary Symptoms: No Dysuria Musculoskeletal: No Back Pain, No Neck Pain Skin: No Rash Neurological: No Dizziness, No Focal Weakness, No Sensory Changes Psychological: No Symptoms Endocrine: No Symptoms Hematologic/Lymphatic: No Symptoms Immunological/Allergic: No Symptoms Objective Exam General Appearance: no apparent distress, alert Neurologic Exam: alert, oriented x 3, cooperative, normal mood/affect, nml cerebellar function, sensation nml, No motor deficits Skin Exam: normal color, warm, dry Eye Exam: PERRL, EOMI, eyes nml inspection Ears, Nose, Throat Exam: normal ENT inspection, pharynx normal, moist mucous membranes Neck Exam: normal inspection, non-tender, supple, full range of motion Respiratory Exam: normal breath sounds, lungs clear, No respiratory distress Cardiovascular Exam: regular rate/rhythm, normal heart sounds Gastrointestinal/Abdomen Exam: soft, tenderness (RUQ), No mass Extremity Exam: normal inspection, normal range of motion Back Exam: normal inspection, normal range of motion, No CVA tenderness, No vertebral tenderness Pelvic Exam: deferred Rectal Exam: deferred Objective Data Vital Signs: Vital Signs - 24 hr Temp Pulse Resp BP Pulse Ox 08/23/24 08:00 97.7 F 106 H 18 138/103 98 08/23/24 04:00 82 18 139/93 97 08/23/24 00:00 97.9 F 86 16 133/92 97 08/22/24 19:46 98.0 F 93 H 18 147/106 99 08/22/24 16:00 97.7 F 98 H 18 158/109 99 08/22/24 11:34 97.7 F 90 20 146/104 96 Pain Assessment - Last Documented Pain Intensity 9 Pain Scale Used 0-10 Pain Scale Intake and Output: Intake & Output 08/20/24 08/21/24 08/22/24 08/23/24 11:59 11:59 11:59 11:59 Intake Total 2818 3268 0 Output Total 150 Balance 2818 3118 2059 Weight 57.606 kg 93.6 kg Lab Results: Lab Results-Last 24 Hours 08/23/24 08/23/24 Range/Units 05:30 05:30 WBC 8.2 (3.98-10.04) x10^3/uL RBC 4.87 (3.93-5.22) x10^6/uL Hgb 13.4 (11.2-15.7) g/dL Hct 42.3 (34.1-44.9) % MCV 86.9 (79.4-94.8) fL MCH 27.5 (25.6-32.2) pg MCHC 31.7 L (32.2-35.5) g/dL RDW 14.2 (11.7-14.4) % Plt Count 337 (182-369) x10^3/uL MPV 9.5 (9.4-12.3) fL Sodium 135 (135-145) mmol/L Potassium 3.8 (3.5-5.1) mmol/L Chloride 100 (98-107) mmol/L Carbon Dioxide 27 (22-30) mmol/L Anion Gap 12.2 (5-15) MEQ/L BUN 3 L (7-17) mg/dL Creatinine 0.56 (0.52-1.04) mg/dL Estimated GFR 122.7 ML/MIN Glucose 131 H (74-106) mg/dL Calcium 9.4 (8.4-10.2) mg/dL Total Bilirubin 0.80 (0.2-1.3) mg/dL AST 120 H (14-36) U/L ALT 67 H (0-35) U/L Alkaline Phosphatase 211 H (38-126) U/L Serum Total Protein 7.1 (6.3-8.2) g/dL Albumin 3.8 (3.5-5.0) g/dL Assessment/Plan (1) Acute alcoholic pancreatitis Current Visit: No Status: Acute Code(s): K85.20 - ALCOHOL INDUCED ACUTE PANCREATITIS WITHOUT NECROSIS OR INFCT (2) Hypokalemia Current Visit: Yes Status: Acute Code(s): E87.6 - HYPOKALEMIA (3) Dehydration Current Visit: Yes Status: Acute Code(s): E86.0 - DEHYDRATION (4) Lactic acid acidosis Current Visit: Yes Status: Acute Code(s): E87.20 - ACIDOSIS, UNSPECIFIED (5) Elevated liver transaminase level Current Visit: Yes Status: Acute Code(s): R74.01 - ELEVATION OF LEVELS OF LIVER TRANSAMINASE LEVELS (6) Alcohol abuse Current Visit: No Status: Acute Code(s): F10.10 - ALCOHOL ABUSE, UNCOMPLICATED (7) Fatty liver Current Visit: No Status: Acute Code(s): K76.0 - FATTY (CHANGE OF) LIVER, NOT ELSEWHERE CLASSIFIED (8) History of alcohol withdrawal syndrome Current Visit: No Status: Acute Code(s): F10.91 - ALCOHOL USE, UNSPECIFIED, IN REMISSION (9) Tachycardia Current Visit: No Status: Acute Code(s): R00.0 - TACHYCARDIA, UNSPECIFIED (10) HTN (hypertension) Current Visit: No Status: Chronic Code(s): I10 - ESSENTIAL (PRIMARY) HYPERTENSION (11) Hypomagnesemia Current Visit: Yes Status: Acute Assessment & Plan: (1) Acute alcoholic pancreatitis Current Visit: No Status: Acute Assessment & Plan: - Alcohol withdrawal protocol - LR @ 125 ml/hr - Morphine SLACK LINE YARDER - Narcan PRN - Amylase 216, Lipase 2215 - As seen on CT Abd/pelvis - CBC, CMP reviewed - NPO - Zofran, compazine 08/21 - NPO - Zofran - CBC, CMP reviewed - Alcohol withdrawal protocol - LR @ 125 ml/hr - Morphine SLACK LINE YARDER- dose decreased to 1mg Q 30 minutes 08/22 - Transition diet as tolerated. - D/C morphine, start oral narcotic pain med - alcohol withdrawal protocol - CBC, CMP reviewed - Liapse 1268- improved - AST 122/ALT 64 08/23 - AST 120, ALT 67, Alk phos 211 - RUQ pain - Morphine, [place] PRN pain - clear liquid diet Code(s): K85.20 - ALCOHOL INDUCED ACUTE PANCREATITIS WITHOUT NECROSIS OR INFCT (2) Hypokalemia Current Visit: Yes Status: Acute Assessment & Plan: - K+ 3.3- replaced - will recheck 2 hours after 1st bag 08/21 - K+ 3.2- replaced per protocol 08/22 - K+ 3.5- ok- resolved Code(s): E87.6 - HYPOKALEMIA (3) Dehydration Current Visit: Yes Status: Acute Assessment & Plan: - anion gap 16.9- trend - IVF gave in ER 08/21 - resolved Code(s): E86.0 - DEHYDRATION (4) Lactic acid acidosis Current Visit: Yes Status: Acute Assessment & Plan: - LA 2.4 on admission in ER- - 1 LNS gave at 10:44 AM - repeat after IVF 1.6 Code(s): E87.20 - ACIDOSIS, UNSPECIFIED (5) Elevated liver transaminase level Current Visit: Yes Status: Acute Assessment & Plan: - AST 343, ALT 128- trend - Fatty liver seen on CT 08/21 - Post d/c appointment made with [facility] - AST 195, ALT 89-improved 08/22 - AST 122, ALT 64- improved 08/23 - AST 120, ALT 67, Alk phos 211 Code(s): R74.01 - ELEVATION OF LEVELS OF LIVER TRANSAMINASE LEVELS (6) Alcohol abuse Current Visit: No Status: Acute Code(s): F10.10 - ALCOHOL ABUSE, UNCOMPLICATED - [facility] protocol - Recommended OP f/u for addiction- refuses IP program- case management provided information - alcohol level <10 (7) Fatty liver Current Visit: No Status: Acute Code(s): K76.0 - FATTY (CHANGE OF) LIVER, NOT ELSEWHERE CLASSIFIED - as seen on CT with need OP f/u with GI (8) History of alcohol withdrawal syndrome Current Visit: No Status: Acute Assessment & Plan: - Continue with OP rehab - Hx of intubation from DT's- watch closely - TELE Code(s): F10.91 - ALCOHOL USE, UNSPECIFIED, IN REMISSION (9) Tachycardia Current Visit: No Status: Acute Assessment & Plan: - Tele - as seen on monitor - beta kev started 08/26 - HR improved- continued tachycardia HR low 100's 08/23 - resolved Code(s): R00.0 - TACHYCARDIA, UNSPECIFIED (10) HTN (hypertension) Current Visit: No Status: Chronic Assessment & Plan: - Amlodipine started and did not help so stopped - metoprolol 25mg BID started. 08/21 - improved Code(s): I10 - ESSENTIAL (PRIMARY) HYPERTENSION (11) Hypomagnesemia Current Visit: Yes Status: Acute Assessment & Plan: - 08/20- MG+ 1.5- replaced 08/21- resolved VTE: Lovenox PPI: Protonix Next of KIN: D/C plan: tomorrow Code status: Full Code(s): E83.42 - HYPOMAGNESEMIA
[2024-08-23] MEDS: MILK OF MAGNESIA 30 ML PO PRN (13:50)
[2024-08-23] MEDS: Miralax Powder 17GM PACKET PO PRN (21:42)
[2024-08-24 04:58] LABS: Hematocrit 42.2 % (34.1-44.9); Hemoglobin 13.4 g/dL (11.2-15.7); Mean Cell Volume 86.1 fL (79.4-94.8); Mean Corpuscular Hemoglobin 27.3 pg (25.6-32.2); Mean Corpuscular Hgb Concent. 31.8 g/dL (32.2-35.5); Mean Platelet Volume 9.7 fL (9.4-12.3); Platelet Count 394 x10^3/uL (182-369); Red Cell Distribution Width 14.5 % (11.7-14.4); White Blood Count 9.3 x10^3/uL (3.98-10.04)
--- NOTE | 2024-08-24 05:10 | PCM.NOTE ---
Date and Time: 08/24/24 0503 Subjective Assessment: Mrs. RUIZ is a 33 year old female with past medical history of migraines, cholecystectomy, and pancreatitis admitted 08/20/24 with recurrent pancreatitis secondary to alcohol consumption. Patient has had multiple admissions for pancratitis due to her alcoholism. She has been in a treatment program that she participates in online but admits to relapse and drinking bourbon recently. She maintains she wants to quit drinking and stay in a program. She is also wanting to get into a pain mgnt program for OP pain control. CT shows diffuse pancreatitis with duodenitis, and fatty liver. IP treatment with aggressive hydration, anti-emetics, alcohol withdrawal protocol, and morphine. BP has been elevated during hospital course and metoprolol initiated. Plan to ADAT. Discharge once she is tolerating a diet. Objective Data Vital Signs: Vital Signs - 24 hr Temp Pulse Resp BP Pulse Ox 08/24/24 04:00 97.3 F 84 17 136/104 98 08/23/24 23:22 97.2 F 74 16 160/101 99 08/23/24 20:00 97.9 F 80 18 169/94 98 08/23/24 16:00 97.8 F 87 20 153/109 99 08/23/24 11:46 97.9 F 78 20 144/104 98 08/23/24 08:00 97.7 F 106 H 18 138/103 98 Pain Assessment - Last Documented Pain Intensity 6 Pain Scale Used 0-10 Pain Scale Intake and Output: Intake & Output 08/21/24 08/22/24 08/23/24 08/24/24 11:59 11:59 11:59 11:59 Intake Total 2818 3268 2180 960 Output Total 150 Balance 2818 3118 2180 960 Weight 93.6 kg Lab Results: Lab Results-Last 24 Hours 08/23/24 08/23/24 Range/Units 05:30 05:30 WBC 8.2 (3.98-10.04) x10^3/uL RBC 4.87 (3.93-5.22) x10^6/uL Hgb 13.4 (11.2-15.7) g/dL Hct 42.3 (34.1-44.9) % MCV 86.9 (79.4-94.8) fL MCH 27.5 (25.6-32.2) pg MCHC 31.7 L (32.2-35.5) g/dL RDW 14.2 (11.7-14.4) % Plt Count 337 (182-369) x10^3/uL MPV 9.5 (9.4-12.3) fL Sodium 135 (135-145) mmol/L Potassium 3.8 (3.5-5.1) mmol/L Chloride 100 (98-107) mmol/L Carbon Dioxide 27 (22-30) mmol/L Anion Gap 12.2 (5-15) MEQ/L BUN 3 L (7-17) mg/dL Creatinine 0.56 (0.52-1.04) mg/dL Estimated GFR 122.7 ML/MIN Glucose 131 H (74-106) mg/dL Calcium 9.4 (8.4-10.2) mg/dL Total Bilirubin 0.80 (0.2-1.3) mg/dL AST 120 H (14-36) U/L ALT 67 H (0-35) U/L Alkaline Phosphatase 211 H (38-126) U/L Serum Total Protein 7.1 (6.3-8.2) g/dL Albumin 3.8 (3.5-5.0) g/dL Assessment/Plan (1) Acute alcoholic pancreatitis Current Visit: No Status: Acute Assessment & Plan: - Alcohol withdrawal protocol - 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 - oral narcotic pain med Code(s): K85.20 - ALCOHOL INDUCED ACUTE PANCREATITIS WITHOUT NECROSIS OR INFCT (2) Dehydration Current Visit: Yes Status: Acute Assessment & Plan: - resolved Code(s): E86.0 - DEHYDRATION (3) Elevated liver transaminase level Current Visit: Yes Status: Acute Code(s): R74.01 - ELEVATION OF LEVELS OF LIVER TRANSAMINASE LEVELS (4) Hypomagnesemia Current Visit: Yes Status: Acute Assessment & Plan: - resolved Code(s): E83.42 - HYPOMAGNESEMIA (5) Lactic acid acidosis Current Visit: Yes Status: Acute Assessment & Plan: - LA 2.4 on admission in ER- - 1 LNS given in ED -repeat LA reviewed at 1.6 WNL -Aggressive hydration provided for pancreatitis -resolved Code(s): E87.20 - ACIDOSIS, UNSPECIFIED (6) Dehydration Current Visit: No Status: Acute Assessment & Plan: - resolved Code(s): E86.0 - DEHYDRATION (7) Fatty liver Current Visit: No Status: Acute Assessment & Plan: - as seen on CT with need OP f/u with GI Code(s): K76.0 - FATTY (CHANGE OF) LIVER, NOT ELSEWHERE CLASSIFIED (8) History of alcohol withdrawal syndrome Current Visit: No Status: Acute Assessment & Plan: - Continue with OP rehab - Hx of intubation from DT's- watch closely - TELE Code(s): F10.91 - ALCOHOL USE, UNSPECIFIED, IN REMISSION (9) Hypokalemia Current Visit: No Status: Acute Assessment & Plan: -resolved -monitor renal/lytes daily Code(s): E87.6 - HYPOKALEMIA (10) Tachycardia Current Visit: No Status: Acute Assessment & Plan: - Tele - as seen on monitor - beta kev started with noted improvement - will continue on metoprolol OP Code(s): R00.0 - TACHYCARDIA, UNSPECIFIED (11) HTN (hypertension) Current Visit: No Status: Chronic Assessment & Plan: - Amlodipine initiated, no help - discontinued - metoprolol 25mg BID started. With noted improvement - will continue as OP VTE: Lovenox PPI: Protonix Next of KIN: D/C plan: tomorrow Code status: Full Code(s): I10 - ESSENTIAL (PRIMARY) HYPERTENSION
[2024-08-24 05:21] LABS: ANION GAP 13.1 MEQ/L (5-15); BILIRUBIN,TOTAL 0.6 mg/dL (0.2-1.3); Calcium 9.7 mg/dL (8.4-10.2); Creatinine 1 0.53 mg/dL (0.52-1.04); EST GLOMERULAR FILTRATION RATE 124.4 ML/MIN; Total Protein 7.2 g/dL (6.3-8.2)
[2024-08-24] MEDS ORDERED: HUMALOG SQ PRN (07:22)
[2024-08-24 07:23] VITALS: PULSE 76; RESP 16
[2024-08-24] MEDS: Reglan 10 MG PO SCH (11:04)
[2024-08-24 11:35] VITALS: BP 148/98; TEMP 97.7; O2SAT 97
--- NOTE | 2024-08-24 15:00 | PCM.DS ---
Discharge Summary Date of Admission: 08/20/24 13:21 Date of Discharge: 08/24/24 Admitting Physician: LUZMARIA BLACK MD Primary Care Provider: NO FAMILY DOCTOR Allergies Allergies No Known Drug Allergies Allergy (Verified 08/20/24 13:25) Hospital Summary - Hospital Course Hospital Course: Mrs. RUIZ is a 33 year old female with past medical history of migraines, cholecystectomy, and pancreatitis admitted 08/20/24 with recurrent pancreatitis secondary to alcohol consumption. Patient has had multiple admissions for pancratitis due to her alcoholism. She has been in a treatment program that she participates in online but admits to relapse and drinking bourbon recently. She maintains she wants to quit drinking and stay in a program. She is also wanting to get into a pain mgnt program for OP pain control. CT shows diffuse pancreatitis with duodenitis, and fatty liver. IP treatment with aggressive hydration, anti-emetics, alcohol withdrawal protocol, and morphine. BP has been elevated during hospital course and metoprolol initiated. Patient advised to keep bp log and follow up with pcp. Patient is now tolerating regular diet with no N/V. Abdominal pain controlled. Plan for discharge home. Patient to follow up with GI. 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 - oral narcotic pain med Code(s): K85.20 - ALCOHOL INDUCED ACUTE PANCREATITIS WITHOUT NECROSIS OR INFCT (2) Dehydration Current Visit: Yes Status: Acute Assessment & Plan: - resolved Code(s): E86.0 - DEHYDRATION (3) Elevated liver transaminase level Current Visit: Yes Status: Acute Code(s): R74.01 - ELEVATION OF LEVELS OF LIVER TRANSAMINASE LEVELS (4) Hypomagnesemia Current Visit: Yes Status: Acute Assessment & Plan: - resolved Code(s): E83.42 - HYPOMAGNESEMIA (5) Lactic acid acidosis Current Visit: Yes Status: Acute Assessment & Plan: - LA 2.4 on admission in ER- - 1 LNS given in ED -repeat LA reviewed at 1.6 WNL -Aggressive hydration provided for pancreatitis -resolved Code(s): E87.20 - ACIDOSIS, UNSPECIFIED (6) Dehydration Current Visit: No Status: Acute Assessment & Plan: - resolved Code(s): E86.0 - DEHYDRATION (7) Fatty liver Current Visit: No Status: Acute Assessment & Plan: - as seen on CT with need OP f/u with GI Code(s): K76.0 - FATTY (CHANGE OF) LIVER, NOT ELSEWHERE CLASSIFIED (8) History of alcohol withdrawal syndrome Current Visit: No Status: Acute Assessment & Plan: - Continue with OP rehab - Hx of intubation from DT's- watch closely - TELE Code(s): F10.91 - ALCOHOL USE, UNSPECIFIED, IN REMISSION (9) Hypokalemia Current Visit: No Status: Acute Assessment & Plan: -resolved -monitor renal/lytes daily Code(s): E87.6 - HYPOKALEMIA (10) Tachycardia Current Visit: No Status: Acute Assessment & Plan: - Tele - as seen on monitor - beta kev started with noted improvement - will continue on metoprolol OP I spent 35 minutes [id number] with the patient on the day of discharge performing discharge exam, discussing hospital stay and discharge instructions with patient and caregivers, preparation of discharge records, prescriptions & referral forms and addressing any questions/concerns the patient had as document ed above. - Vitals & Intake/Output Vital Signs: Vital Signs Temperature 97.7 F 08/24/24 11:34 Pulse Rate 76 08/24/24 11:34 Respiratory Rate 16 08/24/24 11:34 Blood Pressure 148/98 08/24/24 11:34 O2 Sat by Pulse Oximetry 97 08/24/24 11:34 Intake & Output: Intake & Output 08/22/24 08/23/24 08/24/24 08/25/24 11:59 11:59 11:59 11:59 Intake Total 3268 2180 1820 780 Output Total 150 Balance 3118 2180 1820 780 - Lab Result Diagrams: 08/24/24 04:56 08/24/24 04:56 Lab Results-Last 24 Hrs: Lab Results-Last 24 Hours 08/24/24 08/24/24 Range/Units 04:56 04:56 WBC 9.3 (3.98-10.04) x10^3/uL RBC 4.90 (3.93-5.22) x10^6/uL Hgb 13.4 (11.2-15.7) g/dL Hct 42.2 (34.1-44.9) % MCV 86.1 (79.4-94.8) fL MCH 27.3 (25.6-32.2) pg MCHC 31.8 L (32.2-35.5) g/dL RDW 14.5 H (11.7-14.4) % Plt Count 394 H (182-369) x10^3/uL MPV 9.7 (9.4-12.3) fL Sodium 135 (135-145) mmol/L Potassium 4.0 (3.5-5.1) mmol/L Chloride 102 (98-107) mmol/L Carbon Dioxide 25 (22-30) mmol/L Anion Gap 13.1 (5-15) MEQ/L BUN 4 L (7-17) mg/dL Creatinine 0.53 (0.52-1.04) mg/dL Estimated GFR 124.4 ML/MIN Glucose 115 H (74-106) mg/dL Calcium 9.7 (8.4-10.2) mg/dL Total Bilirubin 0.60 (0.2-1.3) mg/dL AST 84 H (14-36) U/L ALT 55 H (0-35) U/L Alkaline Phosphatase 215 H (38-126) U/L Serum Total Protein 7.2 (6.3-8.2) g/dL Albumin 4.0 (3.5-5.0) g/dL Lipase 1214 H (23-300) U/L Discharge Exam General Appearance: no apparent distress Neurologic Exam: alert, oriented x 3, cooperative Eye Exam: PERRL Ears, Nose, Throat Exam: normal ENT inspection Neck Exam: normal inspection Respiratory Exam: normal breath sounds, lungs clear Cardiovascular Exam: regular rate/rhythm, normal heart sounds Gastrointestinal/Abdomen Exam: soft, normal bowel sounds Pelvic Exam: deferred, normal external exam Back Exam: normal inspection Extremity Exam: normal inspection Skin Exam: normal color Final Diagnosis/Problem List - Final Discharge Diagnosis/Problem (1) Acute alcoholic pancreatitis Current Visit: No Status: Acute Code(s): K85.20 - ALCOHOL INDUCED ACUTE PANCREATITIS WITHOUT NECROSIS OR INFCT (2) Dehydration Current Visit: Yes Status: Acute Code(s): E86.0 - DEHYDRATION (3) Elevated liver transaminase level Current Visit: Yes Status: Acute Code(s): R74.01 - ELEVATION OF LEVELS OF LIVER TRANSAMINASE LEVELS (4) Hypomagnesemia Current Visit: Yes Status: Acute Code(s): E83.42 - HYPOMAGNESEMIA (5) Lactic acid acidosis Current Visit: Yes Status: Acute Code(s): E87.20 - ACIDOSIS, UNSPECIFIED (6) Dehydration Current Visit: No Status: Acute Code(s): E86.0 - DEHYDRATION (7) Fatty liver Current Visit: No Status: Acute Code(s): K76.0 - FATTY (CHANGE OF) LIVER, NOT ELSEWHERE CLASSIFIED (8) History of alcohol withdrawal syndrome Current Visit: No Status: Acute Code(s): F10.91 - ALCOHOL USE, UNSPECIFIED, IN REMISSION (9) Hypokalemia Current Visit: No Status: Acute Code(s): E87.6 - HYPOKALEMIA (10) Tachycardia Current Visit: No Status: Acute Code(s): R00.0 - TACHYCARDIA, UNSPECIFIED (11) HTN (hypertension) Current Visit: No Status: Chronic Code(s): I10 - ESSENTIAL (PRIMARY) HYPERTENSION - Discharge Disposition: Home, Self-Care Condition: Stable Prescriptions: New Folic Acid 1 mg [Folate 1 mg] 1 mg PO DAILY 30 Days #30 tablet Metoprolol Tartrate 25 mg [Lopressor 25MG Tab] 25 mg PO BID 30 Days #60 tablet Naloxone HCl [Narcan] See Rx Instructions .ROUTE .COMPLEX 30 Days #1 kit Hydrocodone/Acetaminophen [[place] 10-325 mg] 1 tablet PO Q6H PRN PRN 3 Days #12 tablet MDD 4 PRN Reason: Pain Metoclopramide HCl 10 mg [Reglan 10 MG] 10 mg PO ACHS 7 Days #28 tablet Multivitamins,Therapeutic Tab* [Theragran Multivitamin] 1 tab PO QAM 30 Days #30 tablet Continue ondansetron HCL [Zofran] 8 mg PO TID PRN 5 Days #15 tablet PRN Reason: Nausea PANTOPRAZOLE 40 mg Tablet [Protonix 40MG Tablet] 40 mg PO DAILY 14 Days #14 tab Thiamine Mononitrate (Vit B1) [Vitamin B-1] 100 mg PO DAILY Instructions: Pancreatitis - Discharge instructions Additional Instructions: Keep BP/HR log and follow up with PCP regarding blood pressure - continue metoprolol Follow up with: BHASKAR ELIAS NP [NON-STAFF PHY W/O PRIVILEGES] - 09/24/24 11:15 am
== END 2024-08-24 16:15 | disposition home or self-care (01) | DRG 439 ==
LOC: ED 09:49 → MED SURG 13:21 → OBSVTOIN 13:21
PROVIDERS: ADMIT Internal Medicine; ATTEND Internal Medicine
DX: K85.20 Alcohol induced acute pancreatitis without necrosis or infection (principal); E87.20 Acidosis, unspecified; E86.0 Dehydration; R74.01 Elevation of levels of liver transaminase levels; E83.42 Hypomagnesemia; K76.0 Fatty (change of) liver, not elsewhere classified; F10.91 Alcohol use, unspecified, in remission; E87.6 Hypokalemia; R00.0 Tachycardia, unspecified; I10 Essential (primary) hypertension; F41.0 Panic disorder [episodic paroxysmal anxiety]; F17.200 Nicotine dependence, unspecified, uncomplicated; Z79.899 Other long term (current) drug therapy
CPT/HCPCS: 36415; 74176; 80053; 80061; 81001; 82077; 82150; 83605; 83690; 83721; 83735; 84132; 84484; 84703; 85025; 85027; 93005; 96360; 96374; 96375; 99285; J1650; J2060; J2270; J2405; J3480; Q3014; A9270-GY; J3475

== ENCOUNTER 2024-09-06 16:21 | Emergency (ER) | payer BC ==
[2024-09-06 16:34] VITALS: RESP 16; TEMP 97.7
--- NOTE | 2024-09-06 16:53 | ERPHSYRPT ---
- History of Present Illness Time Seen by Provider: 09/06/24 16:50 Historian: patient Patient Subjective Stated Complaint: pt here for left sided abd pain,she states she was under a lot of stress and started drinking, she states she drinks 3 shooters a day,she is not taking her meds Triage Nursing Assessment: pt alert, walked in, resp easy, skin w/d/p. abd flat, soft, moves all ext well Physician History: This 33-year-old female with significant past medical history of chronic alcohol abuse, history of recurrent pancreatitis secondary to alcohol abuse, recently quit drinking alcohol 2 weeks ago but then according to the patient she has a recent stressful situation at home and she started drinking again. She drinks usually 1 to half bottle of whiskey every day. She started having left upper quadrant and periumbilical area abdominal pain associated with nausea. In the emergency room patient walked in and is she is alert awake oriented to time place and person. Patient wants to go for detox which she is asking for some help from withdrawal symptoms. Timing/Duration: today Abdominal Pain Onset Location: LUQ, periumbilical Pain Radiation: no radiation Severity of Pain-Max: moderate Severity of Pain-Current: moderate Modifying Factors: Improves With: nothing Associated Symptoms: denies symptoms Previous symptoms: same symptoms as today Allergies/Adverse Reactions: No Known Drug Allergies Allergy (Verified 08/20/24 13:25) Home Medications: Thiamine Mononitrate (Vit B1) [Vitamin B-1] 100 mg PO DAILY 08/20/24 [History] Hx Tetanus, Diphtheria Vaccination/Date Given: Yes Hx Influenza Vaccination/Date Given: No Hx Pneumococcal Vaccination/Date Given: No Immunizations Up to Date: Yes Travel Risk - International Travel Have you traveled outside of the country in past 3 weeks: No - Emerging Infectious Disease Are you exhibiting symptoms associated with any current EIDs: Yes Symptoms: Abdominal Pain - Review of Systems Constitutional: No Fever, No Chills Eyes: No Symptoms Ears, Nose, & Throat: No Symptoms Respiratory: No Cough, No Dyspnea Cardiac: No Chest Pain, No Edema, No Syncope Abdominal/Gastrointestinal: Abdominal Pain, Nausea, No Vomiting, No Diarrhea Genitourinary Symptoms: No Dysuria Musculoskeletal: No Back Pain, No Neck Pain Skin: No Rash Neurological: No Dizziness, No Focal Weakness, No Sensory Changes Psychological: No Symptoms Endocrine: No Symptoms All Other Systems: Reviewed and Negative - Past Medical History Pertinent Past Medical History: Yes Neurological History: Migraines ENT History: No Pertinent History Cardiac History: No Pertinent History Respiratory History: No Pertinent History Endocrine Medical History: No Pertinent History Musculoskeletal History: No Pertinent History GI Medical History: Gallbladder Disease, Pancreatitis History: No Pertinent History Psycho-Social History: Anxiety, Bipolar, Depression, Other Female Reproductive Disorders: No Pertinent History Other Medical History: multiple personality disorder - Past Surgical History Past Surgical History: Yes Neuro Surgical History: No Pertinent History Cardiac: No Pertinent History Respiratory: No Pertinent History Gastrointestinal: Cholecystectomy Genitourinary: No Pertinent History Musculoskeletal: No Pertinent History Female Surgical History: No Pertinent History Significant Family History: hypertension (father) - Female History Hx Last Menstrual Period: 2 weeks ago Hx Now: No - Social History Smoking Status: Current every day smoker How long have you smoked: 3 yrs Exposure to second hand smoke: Yes Drug Use: none Patient Lives Alone: No - Social Determinants of Health Will the patient participate in the screening: Yes Do you worry about a steady place to live?: No Do you have any problems with any of the following?: No known problems In the past 12 months,have you had to go without utilities?: No Transportation Issues: No Has anyone in your support network made you feel unsafe?: No Have you or anyone in your house had to go without enough: No - Nursing Vital Signs Nursing Vital Signs: Initial Vital Signs Blood Pressure 148/103 09/06/24 16:30 O2 Sat by Pulse Oximetry 97 09/06/24 16:30 Pain Scale Pain Intensity 5 - Physical Exam General Appearance: no apparent distress, alert Eye Exam: PERRL/EOMI, eyes nml inspection Ears, Nose, Throat Exam: normal ENT inspection, pharynx normal, moist mucous mem branes Neck Exam: normal inspection, non-tender, supple, full range of motion Respiratory Exam: normal breath sounds, lungs clear, No respiratory distress Cardiovascular Exam: regular rate/rhythm, normal heart sounds Gastrointestinal/Abdomen Exam: soft, No tenderness, No mass Back Exam: normal inspection, normal range of motion, No CVA tenderness, No vertebral tenderness Extremity Exam: normal inspection, normal range of motion, pelvis stable Neurologic Exam: alert, oriented x 3, cooperative, normal mood/affect, nml cer ebellar function, sensation nml, No motor deficits Skin Exam: normal color, warm, dry SpO2: 96 - Course Nursing assessment & vital signs reviewed: Yes - CT Exams Abdomen/Pelvis CT Interpretation: Tele-radiologist Report Ordered Tests: Active Orders 24 hr Category Date Time Status ABDOMEN AND PELVIS W CONTRAST [CT] Stat Exams 09/06/24 16:41 Ordered AMYLASE Stat Lab 09/06/24 16:53 Completed CBC W DIFF Stat Lab 09/06/24 16:53 Completed CMP Stat Lab 09/06/24 16:53 Completed HCG QUALITATIVE, SERUM Stat Lab 09/06/24 16:58 Completed LIPASE Stat Lab 09/06/24 16:53 Completed UA W/RFX UR CULTURE Stat Lab 09/06/24 17:06 Ordered Urine Triage Profile Stat Lab 09/06/24 17:06 Ordered Medication Summary Generic Name Dose Route Start Last Admin Trade Name Freq PRN Reason Stop Dose Admin Sodium Chloride 1,000 mls @ 999 mls/hr 09/06/24 16:40 09/06/24 16:56 Sodium Chloride 0.9% 1000 Ml IV 09/06/24 17:40 999 mls/hr .Q1H1M STA Administration Discontinued Medications Generic Name Dose Route Start Last Admin Trade Name Freq PRN Reason Stop Dose Admin Acetaminophen 500 mg 09/06/24 17:22 09/06/24 17:30 Acetaminophen 500 Mg Tablet PO 09/06/24 17:23 500 mg STAT STA Administration Acetaminophen Confirm 09/06/24 17:24 Acetaminophen 500 Mg Tablet Administered 09/06/24 17:25 Dose 500 mg .ROUTE .STK-MED ONE Sodium Chloride Confirm 09/06/24 16:54 Sodium Chloride 0.9% 1000 Ml Administered 09/06/24 16:55 Dose 1,000 mls @ ud .ROUTE .STK-MED ONE Lorazepam 2 mg 09/06/24 16:53 09/06/24 17:13 Lorazepam 2 Mg/1 Ml 2 Mg Vial IV 09/06/24 16:54 2 mg STAT ONE Administration Lorazepam Confirm 09/06/24 17:07 Lorazepam 2 Mg/1 Ml 2 Mg Vial Administered 09/06/24 17:08 Dose 2 mg .ROUTE .STK-MED ONE Ondansetron HCl 4 mg 09/06/24 16:53 09/06/24 17:10 Ondansetron Hcl 4 Mg/2 Ml Vial IV 09/06/24 16:54 4 mg STAT ONE Administration Ondansetron HCl Confirm 09/06/24 17:07 Ondansetron Hcl 4 Mg/2 Ml Vial Administered 09/06/24 17:08 Dose 4 mg .ROUTE .STK-MED ONE Pantoprazole Sodium 40 mg 09/06/24 16:40 09/06/24 16:58 Pantoprazole 40 Mg Vial IV 09/06/24 16:41 40 mg STAT ONE Administration Pantoprazole Sodium Confirm 09/06/24 16:54 Pantoprazole 40 Mg Vial Administered 09/06/24 16:55 Dose 40 mg IV .STK-MED ONE Thiamine HCl 100 mg 09/06/24 16:53 09/06/24 17:11 Thiamine Hcl 200 Mg/2 Ml Vial IV 09/06/24 16:54 100 mg STAT ONE Administration Thiamine HCl Confirm 09/06/24 17:08 Thiamine Hcl 200 Mg/2 Ml Vial Administered 09/06/24 17:09 Dose 200 mg .ROUTE .STK-MED ONE Lab/Rad Data: Laboratory Result Diagrams 09/06/24 16:53 09/06/24 16:53 Laboratory Results 09/06/24 09/06/24 09/06/24 Range/Units 16:58 16:53 16:53 WBC 11.6 H (3.98-10.04) x10^3/uL RBC 5.00 (3.93-5.22) x10^6/uL Hgb 13.5 (11.2-15.7) g/dL Hct 41.6 (34.1-44.9) % MCV 83.2 (79.4-94.8) fL MCH 27.0 (25.6-32.2) pg MCHC 32.5 (32.2-35.5) g/dL RDW 14.1 (11.7-14.4) % Plt Count 565 H (182-369) x10^3/uL MPV 9.6 (9.4-12.3) fL Gran % 73.0 H (34.0-71.1) % Immature Gran % (Auto) 0.2 (0.001-0.429) % Nucleat RBC Rel Count 0.0 (0.00-0.2) % Eos # (Auto) 0.05 (0.04-0.36) x10^3/uL Immature Gran # (Auto) 0.02 (0.001-0.031) x10^3u/L Absolute Lymphs (auto) 2.41 (1.18-3.74) x10^3/uL Absolute Monos (auto) 0.58 (0.24-0.86) x10^3/uL Absolute Nucleated RBC 0.00 (0.00-0.012) x10^3u/L Lymphocytes % 20.8 (19.3-51.7) % Monocytes % 5.0 (4.7-12.5) % Eosinophils % 0.4 L (0.7-5.8) % Basophils % 0.6 (0.1-1.2) % Absolute Granulocytes 8.43 H (1.56-6.13) x10^3/uL Basophils # 0.07 (0.01-0.08) x10^3/uL Sodium 139 (135-145) mmol/L Potassium 3.1 L (3.5-5.1) mmol/L Chloride 103 (98-107) mmol/L Carbon Dioxide 22 (22-30) mmol/L Anion Gap 17.2 H (5-15) MEQ/L BUN 6 L (7-17) mg/dL Creatinine 0.55 (0.52-1.04) mg/dL Estimated GFR 123.3 ML/MIN Glucose 133 H (74-106) mg/dL Calcium 9.5 (8.4-10.2) mg/dL Total Bilirubin 0.70 (0.2-1.3) mg/dL AST 212 H (14-36) U/L ALT 94 H (0-35) U/L Alkaline Phosphatase 177 H (38-126) U/L Serum Total Protein 7.6 (6.3-8.2) g/dL Albumin 4.2 (3.5-5.0) g/dL Amylase 64 (30-110) U/L Lipase 130 (23-300) U/L Serum HCG, Qual NEGATIVE (NEGATIVE) - Progress Progress: improved Counseled pt/family regarding: drug and/or alcohol abuse, lab results, diagnosis, need for follow-up - Departure Departure Disposition: AMA Clinical Impression: Alcohol abuse, Hypokalemia, Elevated liver enzymes Alcoholic gastritis Qualifiers: Chronicity: chronic Gastritis bleeding: without bleeding Qualified Code(s): K29.20 - Alcoholic gastritis without bleeding Condition: Stable Critical Care Time: No Referrals: DOCTOR,NO FAMILY [Primary Care Provider] - Follow up/PCP as directed
[2024-09-06] MEDS ORDERED: Sodium Chloride 0.9% 1000 ML 1,000 ML ONE (16:54)
[2024-09-06] MEDS ORDERED: PROTONIX 40 MG IV IV ONE (16:54)
[2024-09-06 16:55] LABS: Absolute Neutrophil Ct (ANC) 8.43 x10^3/uL (1.56-6.13); BASOPHIL % 0.6 % (0.1-1.2); Basophil (Absolute #) 0.07 x10^3/uL (0.01-0.08); Eosinophil % 0.4 % (0.7-5.8); Eosinophil (Absolute #) 0.05 x10^3/uL (0.04-0.36); Hematocrit 41.6 % (34.1-44.9); Hemoglobin 13.5 g/dL (11.2-15.7); IMMATURE GRAN # 0.02 x10^3u/L (0.001-0.031); IMMATURE GRAN % 0.2 % (0.001-0.429); Lymphocyte (Absolute #) 2.41 x10^3/uL (1.18-3.74); Lymphocytes % 20.8 % (19.3-51.7); Mean Cell Volume 83.2 fL (79.4-94.8); Mean Corpuscular Hgb Concent. 32.5 g/dL (32.2-35.5); Mean Platelet Volume 9.6 fL (9.4-12.3); Monocyte (Absolute #) 0.58 x10^3/uL (0.24-0.86); Platelet Count 565 x10^3/uL (182-369); Red Cell Distribution Width 14.1 % (11.7-14.4); White Blood Count 11.6 x10^3/uL (3.98-10.04)
[2024-09-06] MEDS: Sodium Chloride 0.9% 1000 ML 1,000 ML IV STA (16:56)
[2024-09-06] MEDS: PROTONIX 40 MG IV IV ONE (16:58)
[2024-09-06 17:06] VITALS: BP 131/105; PULSE 110
[2024-09-06] MEDS ORDERED: Zofran 4 MG/2 ML VIAL ONE (17:07)
[2024-09-06] MEDS ORDERED: Ativan 2 MG/1 ML VIAL ONE (17:07)
[2024-09-06] MEDS ORDERED: THIAMINE 200 MG/2 ML ONE (17:08)
[2024-09-06 17:09] LABS: HCG SERUM TEST NEGATIVE (NEGATIVE)
[2024-09-06 17:10] LABS: ALBUMIN 4.2 g/dL (3.5-5.0); ANION GAP 17.2 MEQ/L (5-15); BILIRUBIN,TOTAL 0.7 mg/dL (0.2-1.3); Calcium 9.5 mg/dL (8.4-10.2); Creatinine 1 0.55 mg/dL (0.52-1.04); EST GLOMERULAR FILTRATION RATE 123.3 ML/MIN; Potassium 3.1 mmol/L (3.5-5.1); Total Protein 7.6 g/dL (6.3-8.2)
[2024-09-06] MEDS: Zofran 4 MG/2 ML VIAL IV ONE (17:10)
[2024-09-06] MEDS: THIAMINE 200 MG/2 ML IV ONE (17:11)
[2024-09-06] MEDS: Ativan 2 MG/1 ML VIAL IV ONE (17:13)
[2024-09-06] MEDS ORDERED: TYLENOL EXTRA STRENGTH 500 MG ONE (17:24)
[2024-09-06] MEDS: TYLENOL EXTRA STRENGTH 500 MG PO STA (17:30)
[2024-09-06 17:41] VITALS: O2SAT 96
[2024-09-06 19:49] LABS: Amphetamine,Urine NEGATIVE (NEGATIVE); Barbiturate,Urine NEGATIVE (NEGATIVE); Benzodiazepine,Urine NEGATIVE (NEGATIVE); Cocaine,Urine NEGATIVE (NEGATIVE); Methadone,Urine NEGATIVE (NEGATIVE); Opiate,Urine NEGATIVE (NEGATIVE); PCP,Urine NEGATIVE (NEGATIVE); THC,Urine NEGATIVE (NEGATIVE)
== END 2024-09-06 17:47 | disposition left against medical advice (07) ==
LOC: ED 16:21
DX: K29.20 Alcoholic gastritis without bleeding (principal); R10.12 Left upper quadrant pain; Z73.3 Stress, not elsewhere classified; F10.10 Alcohol abuse, uncomplicated; F17.200 Nicotine dependence, unspecified, uncomplicated; E87.6 Hypokalemia; R79.89 Other specified abnormal findings of blood chemistry
CPT/HCPCS: 36415; 80053; 80307; 82150; 83690; 84703; 85025; 96374; 96375; 99284; J2060; J2405; A9270-GY

== ENCOUNTER 2024-09-07 19:01 | Emergency (ER) | payer BC ==
--- NOTE | 2024-09-07 19:23 | ERPHSYRPT ---
- History of Present Illness Time Seen by Provider: 09/07/24 19:15 Historian: patient Exam Limitations: no limitations Physician History: This is a 33-year-old white female patient who arrives by private vehicle accompanied by family member and has a history of recurrent acute on chronic pancreatitis. Her symptoms of left upper quadrant abdominal pain onset was 3 days ago. Patient admits to consuming alcoholic beverages daily. She describes the shots of whiskey every 2 hours. She states that the only medication that helps relieve the pain she is having. Patient is a daily smoker of tobacco cigarettes. Patient has bipolar disorder, multiple personality disorder, anxiety and migraine headaches. This is patient's seventh visit in 2 months to our emergency room. She has been seen at other emergency rooms during this timeframe as well. She was here yesterday but became angry and left and went to [facility] emergency department in [facility]. Patient states that she wants help and alcohol rehab and is concerned she might be in withdraw al. Quality: aching Abdominal Pain Onset Location: [facility] Pain Radiation: no radiation Severity of Pain-Max: moderate Severity of Pain-Current: moderate Modifying Factors: Improves With: other (Patient states ingestion of alcohol helps relieve her pain) Associated Symptoms: denies symptoms Previous symptoms: same symptoms as today, recently seen, recently treated Allergies/Adverse Reactions: No Known Drug Allergies Allergy (Verified 08/20/24 13:25) Home Medications: Thiamine Mononitrate (Vit B1) [Vitamin B-1] 100 mg PO DAILY 08/20/24 [History] Hx Tetanus, Diphtheria Vaccination/Date Given: Yes Hx Influenza Vaccination/Date Given: No Hx Pneumococcal Vaccination/Date Given: No Travel Risk - International Travel Have you traveled outside of the country in past 3 weeks: No - Emerging Infectious Disease Are you exhibiting symptoms associated with any current EIDs: Yes Symptoms: Abdominal Pain - Review of Systems Constitutional: No Symptoms Eyes: No Symptoms Ears, Nose, & Throat: No Symptoms Respiratory: No Symptoms Cardiac: No Symptoms Abdominal/Gastrointestinal: Abdominal Pain (Left upper quadrant) Genitourinary Symptoms: No Symptoms Musculoskeletal: No Symptoms Skin: No Symptoms Neurological: No Symptoms Psychological: No Symptoms Endocrine: No Symptoms Hematologic/Lymphatic: No Symptoms Immunological/Allergic: No Symptoms All Other Systems: Reviewed and Negative - Past Medical History Pertinent Past Medical History: Yes Neurological History: Migraines ENT History: No Pertinent History Cardiac History: No Pertinent History Respiratory History: No Pertinent History Endocrine Medical History: No Pertinent History Musculoskeletal History: No Pertinent History GI Medical History: Gallbladder Disease, Pancreatitis History: No Pertinent History Psycho-Social History: Anxiety, Bipolar, Depression, Other Female Reproductive Disorders: No Pertinent History Other Medical History: multiple personality disorder - Past Surgical History Past Surgical History: Yes Neuro Surgical History: No Pertinent History Cardiac: No Pertinent History Respiratory: No Pertinent History Gastrointestinal: Cholecystectomy Genitourinary: No Pertinent History Musculoskeletal: No Pertinent History Female Surgical History: No Pertinent History Significant Family History: hypertension (father) - Female History Hx Last Menstrual Period: 2 weeks ago - Social History Smoking Status: Current every day smoker How long have you smoked: 3 yrs Exposure to second hand smoke: Yes Drug Use: none Patient Lives Alone: No - Social Determinants of Health Will the patient participate in the screening: Yes Do you worry about a steady place to live?: No In the past 12 months,have you had to go without utilities?: No Transportation Issues: No Has anyone in your support network made you feel unsafe?: No Have you or anyone in your house had to go without enough: No - Nursing Vital Signs Nursing Vital Signs: Initial Vital Signs Temperature 97.7 F 09/07/24 19:20 Pulse Rate 119 H 09/07/24 19:20 Respiratory Rate 18 09/07/24 19:20 Blood Pressure 118/82 09/07/24 19:20 O2 Sat by Pulse Oximetry 98 09/07/24 19:20 Pain Scale Pain Intensity 6 - Physical Exam General Appearance: anxiety, other (Appears defensive) Eye Exam: PERRL/EOMI, eyes nml inspection Ears, Nose, Throat Exam: normal ENT inspection, moist mucous membranes Neck Exam: normal inspection, non-tender, supple, full range of motion Respiratory Exam: normal breath sounds, lungs clear, airway intact, No chest tenderness, No respiratory distress Cardiovascular Exam: tachycardia Gastrointestinal/Abdomen Exam: soft, normal bowel sounds, tenderness (Left upper quadrant), guarding, No rebound (Mild) Pelvic Exam: not done Rectal Exam: not done Back Exam: normal inspection, normal range of motion, No CVA tenderness, No vertebral tenderness Extremity Exam: normal inspection, normal range of motion, pelvis stable Neurologic Exam: alert, oriented x 3, cooperative, 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 nml as tested, nml cerebellar function, nml station & gait, sensation nml Skin Exam: normal color, warm, dry Lymphatic Exam: No adenopathy SpO2 Interpretation: normal O2 Delivery: Room Air - Course Nursing assessment & vital signs reviewed: Yes Ordered Tests: Active Orders 24 hr Category Date Time Status Clean Catch Urine Specimen STAT Care 09/07/24 19:52 Active IV Insertion STAT Care 09/07/24 19:52 Active AMYLASE Stat Lab 09/07/24 20:05 Completed CBC W DIFF Stat Lab 09/07/24 19:52 Completed CMP Stat Lab 09/07/24 20:05 Completed ETHYL ALCOHOL Stat Lab 09/07/24 20:05 Completed LIPASE Stat Lab 09/07/24 20:05 Completed Lactic Acid Stat Lab 09/07/24 20:20 Completed Lactic Acid Stat Lab 09/07/24 22:30 Received UA W/RFX UR CULTURE Stat Lab 09/07/24 20:23 Completed Urine Triage Profile Stat Lab 09/07/24 20:23 Completed Medication Summary Discontinued Medications Generic Name Dose Route Start Last Admin Trade Name Freq PRN Reason Stop Dose Admin Hydromorphone HCl 1 mg 09/07/24 19:52 09/07/24 20:05 Hydromorphone 1 Mg/1ml Inj IV 09/07/24 19:53 1 mg STAT ONE Administration Hydromorphone HCl Confirm 09/07/24 20:02 Hydromorphone 1 Mg/1ml Inj Administered 09/07/24 20:03 Dose 1 mg .ROUTE .STK-MED ONE Sodium Chloride 1,000 mls @ 999 mls/hr 09/07/24 19:52 09/07/24 20:04 Sodium Chloride 0.9% 1000 Ml IV 09/07/24 20:52 999 mls/hr .Q1H1M STA Administration Sodium Chloride Confirm 09/07/24 20:02 Sodium Chloride 0.9% 1000 Ml Administered 09/07/24 20:03 Dose 1,000 mls @ ud .ROUTE .STK-MED ONE Sodium Chloride 500 mls @ 500 mls/hr 09/07/24 21:07 09/07/24 21:23 Sodium Chloride 0.9% 500 Ml IV 09/07/24 22:06 500 mls/hr .Q1H ONE Administration Sodium Chloride Confirm 09/07/24 21:22 Sodium Chloride 0.9% 500 Ml Administered 09/07/24 21:23 Dose 500 mls @ ud IV .STK-MED ONE Ondansetron HCl 4 mg 09/07/24 19:52 09/07/24 20:07 Ondansetron Hcl 4 Mg/2 Ml Vial IV 09/07/24 19:53 4 mg STAT ONE Administration Ondansetron HCl Confirm 09/07/24 20:01 Ondansetron Hcl 4 Mg/2 Ml Vial Administered 09/07/24 20:02 Dose 4 mg .ROUTE .STK-MED ONE Pantoprazole Sodium 40 mg 09/07/24 19:52 09/07/24 20:05 Pantoprazole 40 Mg Vial IV 09/07/24 19:53 40 mg STAT ONE Administration Pantoprazole Sodium Confirm 09/07/24 20:01 Pantoprazole 40 Mg Vial Administered 09/07/24 20:02 Dose 40 mg IV .STK-MED ONE Lab/Rad Data: Laboratory Result Diagrams 09/07/24 19:52 09/07/24 20:05 Laboratory Results 09/07/24 09/07/24 09/07/24 Range/Units 20:23 20:23 20:20 WBC (3.98-10.04) x10^3/uL RBC (3.93-5.22) x10^6/uL Hgb (11.2-15.7) g/dL Hct (34.1-44.9) % MCV (79.4-94.8) fL MCH (25.6-32.2) pg MCHC (32.2-35.5) g/dL RDW (11.7-14.4) % Plt Count (182-369) x10^3/uL MPV (9.4-12.3) fL Gran % (34.0-71.1) % Immature Gran % (Auto) (0.001-0.429) % Nucleat RBC Rel Count (0.00-0.2) % Eos # (Auto) (0.04-0.36) x10^3/uL Immature Gran # (Auto) (0.001-0.031) x10^3u/L Absolute Lymphs (auto) (1.18-3.74) x10^3/uL Absolute Monos (auto) (0.24-0.86) x10^3/uL Absolute Nucleated RBC (0.00-0.012) x10^3u/L Lymphocytes % (19.3-51.7) % Monocytes % (4.7-12.5) % Eosinophils % (0.7-5.8) % Basophils % (0.1-1.2) % Absolute Granulocytes (1.56-6.13) x10^3/uL Basophils # (0.01-0.08) x10^3/uL Sodium (135-145) mmol/L Potassium (3.5-5.1) mmol/L Chloride (98-107) mmol/L Carbon Dioxide (22-30) mmol/L Anion Gap (5-15) MEQ/L BUN (7-17) mg/dL Creatinine (0.52-1.04) mg/dL Estimated GFR ML/MIN Glucose (74-106) mg/dL Lactic Acid (0.4-2.0) Calcium (8.4-10.2) mg/dL Total Bilirubin (0.2-1.3) mg/dL AST (14-36) U/L ALT (0-35) U/L Alkaline Phosphatase (38-126) U/L Serum Total Protein (6.3-8.2) g/dL Albumin (3.5-5.0) g/dL Amylase (30-110) U/L Lipase (23-300) U/L Urine Color Yellow (Yellow) Urine Appearance Cloudy A (Clear) Urine pH 6.0 (4.6-8.0) Ur Specific [place] 1.025 (1.005-1.030) Urine Protein Trace A (Negative) Urine Glucose (UA) Negative (Negative) mg/dL Urine Ketones Trace A (Negative) Urine Blood Negative (Negative) Urine Nitrite Negative (Negative) Urine Bilirubin Negative (Negative) Urine Urobilinogen 1.0 A (0.2) mg/dL Ur Leukocyte Esterase Negative (Negative) U Hyaline Cast (Auto) NONE SEEN (0-2) /LPF Urine Microscopic RBC 0-2 (0-5) /HPF Urine Microscopic WBC 0-2 (0-5) /HPF Ur Epithelial Cells Moderate A (None Seen) /HPF Urine Bacteria Rare A (None Seen) /HPF Urine Culture Reflexed NO (NO) Urine Opiates Level POSITIVE A (NEGATIVE) Ur Methadone NEGATIVE (NEGATIVE) Urine Barbiturates NEGATIVE (NEGATIVE) Ur Phencyclidine (PCP) NEGATIVE (NEGATIVE) Urine Amphetamine NEGATIVE (NEGATIVE) U Benzodiazepine Level NEGATIVE (NEGATIVE) Urine Cocaine NEGATIVE (NEGATIVE) Urine Marijuana (THC) NEGATIVE (NEGATIVE) Ethyl Alcohol (0-10) mg/dL Influenza Type A Ag NEGATIVE (NEGATIVE) Influenza Type B Ag NEGATIVE (NEGATIVE) RSV (PCR) NEGATIVE (NEGATIVE) SARS-CoV-2 (PCR) NEGATIVE (NEGATIVE) 09/07/24 09/07/24 09/07/24 Range/Units 20:20 20:05 20:05 WBC (3.98-10.04) x10^3/uL RBC (3.93-5.22) x10^6/uL Hgb (11.2-15.7) g/dL Hct (34.1-44.9) % MCV (79.4-94.8) fL MCH (25.6-32.2) pg MCHC (32.2-35.5) g/dL RDW (11.7-14.4) % Plt Count (182-369) x10^3/uL MPV (9.4-12.3) fL Gran % (34.0-71.1) % Immature Gran % (Auto) (0.001-0.429) % Nucleat RBC Rel Count (0.00-0.2) % Eos # (Auto) (0.04-0.36) x10^3/uL Immature Gran # (Auto) (0.001-0.031) x10^3u/L Absolute Lymphs (auto) (1.18-3.74) x10^3/uL Absolute Monos (auto) (0.24-0.86) x10^3/uL Absolute Nucleated RBC (0.00-0.012) x10^3u/L Lymphocytes % (19.3-51.7) % Monocytes % (4.7-12.5) % Eosinophils % (0.7-5.8) % Basophils % (0.1-1.2) % Absolute Granulocytes (1.56-6.13) x10^3/uL Basophils # (0.01-0.08) x10^3/uL Sodium 143 (135-145) mmol/L Potassium 3.5 (3.5-5.1) mmol/L Chloride 108 H (98-107) mmol/L Carbon Dioxide 21 L (22-30) mmol/L Anion Gap 17.1 H (5-15) MEQ/L BUN 8 (7-17) mg/dL Creatinine 0.63 (0.52-1.04) mg/dL Estimated GFR 119.3 ML/MIN Glucose 132 H (74-106) mg/dL Lactic Acid 3.1 H (0.4-2.0) Calcium 8.5 (8.4-10.2) mg/dL Total Bilirubin 0.20 (0.2-1.3) mg/dL AST 160 H (14-36) U/L ALT 75 H (0-35) U/L Alkaline Phosphatase 138 H (38-126) U/L Serum Total Protein 6.4 (6.3-8.2) g/dL Albumin 3.5 (3.5-5.0) g/dL Amylase 63 (30-110) U/L Lipase 125 (23-300) U/L Urine Color (Yellow) Urine Appearance (Clear) Urine pH (4.6-8.0) Ur Specific [place] (1.005-1.030) Urine Protein (Negative) Urine Glucose (UA) (Negative) mg/dL Urine Ketones (Negative) Urine Blood (Negative) Urine Nitrite (Negative) Urine Bilirubin (Negative) Urine Urobilinogen (0.2) mg/dL Ur Leukocyte Esterase (Negative) U Hyaline Cast (Auto) (0-2) /LPF Urine Microscopic RBC (0-5) /HPF Urine Microscopic WBC (0-5) /HPF Ur Epithelial Cells (None Seen) /HPF Urine Bacteria (None Seen) /HPF Urine Culture Reflexed (NO) Urine Opiates Level (NEGATIVE) Ur Methadone (NEGATIVE) Urine Barbiturates (NEGATIVE) Ur Phencyclidine (PCP) (NEGATIVE) Urine Amphetamine (NEGATIVE) U Benzodiazepine Level (NEGATIVE) Urine Cocaine (NEGATIVE) Urine Marijuana (THC) (NEGATIVE) Ethyl Alcohol 224 H (0-10) mg/dL Influenza Type A Ag (NEGATIVE) Influenza Type B Ag (NEGATIVE) RSV (PCR) (NEGATIVE) SARS-CoV-2 (PCR) (NEGATIVE) 09/07/24 Range/Units 19:52 WBC 9.9 (3.98-10.04) x10^3/uL RBC 4.56 (3.93-5.22) x10^6/uL Hgb 12.4 (11.2-15.7) g/dL Hct 38.6 (34.1-44.9) % MCV 84.6 (79.4-94.8) fL MCH 27.2 (25.6-32.2) pg MCHC 32.1 L (32.2-35.5) g/dL RDW 14.1 (11.7-14.4) % Plt Count 430 H (182-369) x10^3/uL MPV 9.2 L (9.4-12.3) fL Gran % 74.6 H (34.0-71.1) % Immature Gran % (Auto) 0.3 (0.001-0.429) % Nucleat RBC Rel Count 0.0 (0.00-0.2) % Eos # (Auto) 0.33 (0.04-0.36) x10^3/uL Immature Gran # (Auto) 0.03 (0.001-0.031) x10^3u/L Absolute Lymphs (auto) 1.52 (1.18-3.74) x10^3/uL Absolute Monos (auto) 0.59 (0.24-0.86) x10^3/uL Absolute Nucleated RBC 0.00 (0.00-0.012) x10^3u/L Lymphocytes % 15.4 L (19.3-51.7) % Monocytes % 6.0 (4.7-12.5) % Eosinophils % 3.3 (0.7-5.8) % Basophils % 0.4 (0.1-1.2) % Absolute Granulocytes 7.39 H (1.56-6.13) x10^3/uL Basophils # 0.04 (0.01-0.08) x10^3/uL Sodium (135-145) mmol/L Potassium (3.5-5.1) mmol/L Chloride (98-107) mmol/L Carbon Dioxide (22-30) mmol/L Anion Gap (5-15) MEQ/L BUN (7-17) mg/dL Creatinine (0.52-1.04) mg/dL Estimated GFR ML/MIN Glucose (74-106) mg/dL Lactic Acid (0.4-2.0) Calcium (8.4-10.2) mg/dL Total Bilirubin (0.2-1.3) mg/dL AST (14-36) U/L ALT (0-35) U/L Alkaline Phosphatase (38-126) U/L Serum Total Protein (6.3-8.2) g/dL Albumin (3.5-5.0) g/dL Amylase (30-110) U/L Lipase (23-300) U/L Urine Color (Yellow) Urine Appearance (Clear) Urine pH (4.6-8.0) Ur Specific [place] (1.005-1.030) Urine Protein (Negative) Urine Glucose (UA) (Negative) mg/dL Urine Ketones (Negative) Urine Blood (Negative) Urine Nitrite (Negative) Urine Bilirubin (Negative) Urine Urobilinogen (0.2) mg/dL Ur Leukocyte Esterase (Negative) U Hyaline Cast (Auto) (0-2) /LPF Urine Microscopic RBC (0-5) /HPF Urine Microscopic WBC (0-5) /HPF Ur Epithelial Cells (None Seen) /HPF Urine Bacteria (None Seen) /HPF Urine Culture Reflexed (NO) Urine Opiates Level (NEGATIVE) Ur Methadone (NEGATIVE) Urine Barbiturates (NEGATIVE) Ur Phencyclidine (PCP) (NEGATIVE) Urine Amphetamine (NEGATIVE) U Benzodiazepine Level (NEGATIVE) Urine Cocaine (NEGATIVE) Urine Marijuana (THC) (NEGATIVE) Ethyl Alcohol (0-10) mg/dL Influenza Type A Ag (NEGATIVE) Influenza Type B Ag (NEGATIVE) RSV (PCR) (NEGATIVE) SARS-CoV-2 (PCR) (NEGATIVE) - Progress Progress: improved, pain not gone completely, re-examined Progress Note: 09/07/24 20:12 My medical decision making and the assignment of moderate complexity to this patient's medical issue today is based on review of the patient's past medical history, review of the patient's medication list, history present illness and physical findings on examination. The workup in this patient includes placement of intravenous line, CBC, CMP, amylase, lipase, urinalysis, urine drug triage, ethyl alcohol level. Differential diagnosis includes but is not limited to acute on chronic pancreatitis, dehydration, electrolyte abnormalities, urinary tract infection, Clinically, the patient currently does not appear to be in alcohol withdrawal. She has been drinking daily and drink today. She is slightly tachycardic. She does not have a fever. We will obtain the above workup and will also try to place her in an inpatient setting. She does understand that they may require her to be seen as an outpatient as her vital signs are stable at this time. We will await the results of the workup to make final disposition. 09/07/24 22:34 I interpreted the patient's laboratory data results. Based on the laboratory data results, the patient has alcohol intoxication. She also has elevated transaminase levels likely secondary to chronic alcohol abuse. The emergency room nursing staff contacted [facility]. [facility] reviewed this patient's chart and offered her 3-day detox day in an inpatient facility followed by outpatient 28- day rehab. Patient declines and will follow-up as an outpatient. Patient was provided with outpatient information from [facility]. 09/07/24 22:36 I did not order a CT scan of the abdomen pelvis as this patient has had [address] scans in the last 2 to 3 months which were negative for pancreatitis. Her pancreas levels are normal. Counseled pt/family regarding: lab results, diagnosis, need for follow-up Medical Desision Making - Independent Historian Additional History obtained from: Family - Diagnostic Testing Diagnostic test were ordered, analyzed, and reviewed by me: Yes - Risk of complications The pt has a mod risk of morbidity or mortality based on: Need for prescription drug management - Departure Departure Disposition: Home Clinical Impression: Left upper quadrant abdominal pain, Vomiting, Alcohol intoxication, Elevated liver transaminase level Condition: Stable Critical Care Time: No Referrals: DOCTOR,NO FAMILY [Primary Care Provider] - Follow up/PCP as directed Additional Instructions: Avoid alcohol ingestion in all forms. Use your Zofran as prescribed. Follow-up with [facility] as an outpatient. Call your primary care provider tomorrow, 09/08/2024, to make arrangements for follow-up appointment to be seen in the next 2 to 3 days Prescriptions: Ondansetron ODT 4 MG [Zofran Odt 4 mg] 4 mg PO Q6H PRN PRN #10 tablet PRN Reason: Vomiting
[2024-09-07 19:40] VITALS: TEMP 97.7
[2024-09-07] MEDS ORDERED: Zofran 4 MG/2 ML VIAL ONE (20:01)
[2024-09-07] MEDS ORDERED: PROTONIX 40 MG IV IV ONE (20:01)
[2024-09-07] MEDS ORDERED: Sodium Chloride 0.9% 1000 ML 1,000 ML ONE (20:02)
[2024-09-07] MEDS ORDERED: Hydromorphone 1 mg/ml Injection ONE (20:02)
[2024-09-07] MEDS: Sodium Chloride 0.9% 1000 ML 1,000 ML IV STA (20:04)
[2024-09-07] MEDS: PROTONIX 40 MG IV IV ONE (20:05)
[2024-09-07] MEDS: Hydromorphone 1 mg/ml Injection IV ONE (20:05)
[2024-09-07] MEDS: Zofran 4 MG/2 ML VIAL IV ONE (20:07)
[2024-09-07 20:08] LABS: Absolute Neutrophil Ct (ANC) 7.39 x10^3/uL (1.56-6.13); BASOPHIL % 0.4 % (0.1-1.2); Basophil (Absolute #) 0.04 x10^3/uL (0.01-0.08); Eosinophil % 3.3 % (0.7-5.8); Eosinophil (Absolute #) 0.33 x10^3/uL (0.04-0.36); Hematocrit 38.6 % (34.1-44.9); Hemoglobin 12.4 g/dL (11.2-15.7); IMMATURE GRAN # 0.03 x10^3u/L (0.001-0.031); IMMATURE GRAN % 0.3 % (0.001-0.429); Lymphocyte (Absolute #) 1.52 x10^3/uL (1.18-3.74); Lymphocytes % 15.4 % (19.3-51.7); Mean Cell Volume 84.6 fL (79.4-94.8); Mean Corpuscular Hemoglobin 27.2 pg (25.6-32.2); Mean Corpuscular Hgb Concent. 32.1 g/dL (32.2-35.5); Mean Platelet Volume 9.2 fL (9.4-12.3); Monocyte (Absolute #) 0.59 x10^3/uL (0.24-0.86); Neutrophil % 74.6 % (34.0-71.1); Platelet Count 430 x10^3/uL (182-369); Red Blood Count 4.56 x10^6/uL (3.93-5.22); Red Cell Distribution Width 14.1 % (11.7-14.4); White Blood Count 9.9 x10^3/uL (3.98-10.04)
[2024-09-07 20:27] LABS: ALBUMIN 3.5 g/dL (3.5-5.0); ANION GAP 17.1 MEQ/L (5-15); BILIRUBIN,TOTAL 0.2 mg/dL (0.2-1.3); Calcium 8.5 mg/dL (8.4-10.2); Creatinine 1 0.63 mg/dL (0.52-1.04); EST GLOMERULAR FILTRATION RATE 119.3 ML/MIN; Potassium 3.5 mmol/L (3.5-5.1); Total Protein 6.4 g/dL (6.3-8.2)
[2024-09-07 20:31] LABS: Appearance Cloudy (Clear); Bacteria Rare /HPF (None Seen); Bilirubin Negative (Negative); Blood Negative (Negative); Epithelial Cells Moderate /HPF (None Seen); Glucose, Urine Negative (Negative); Hyaline Casts NONE SEEN /LPF (0-2); Ketones Trace (Negative); Leukocyte Esterase Negative (Negative); Nitrite Negative (Negative); Protein,Urine Dip Trace (Negative); RBC 0-2 /HPF (0-5); Specific Gravity 1.025 (1.005-1.030); WBC 0-2 /HPF (0-5)
[2024-09-07 20:44] LABS: Amphetamine,Urine NEGATIVE (NEGATIVE); Barbiturate,Urine NEGATIVE (NEGATIVE); Benzodiazepine,Urine NEGATIVE (NEGATIVE); Cocaine,Urine NEGATIVE (NEGATIVE); Methadone,Urine NEGATIVE (NEGATIVE); Opiate,Urine POSITIVE (NEGATIVE); PCP,Urine NEGATIVE (NEGATIVE); THC,Urine NEGATIVE (NEGATIVE)
[2024-09-07 21:00] LABS: INFLUENZA A NEGATIVE (NEGATIVE); INFLUENZA B NEGATIVE (NEGATIVE); RESPIRATORY SYNCTIAL VIRUS NEGATIVE (NEGATIVE); SARS-CoV-2 Xpert Express NEGATIVE (NEGATIVE)
[2024-09-07] MEDS ORDERED: Sodium Chloride 0.9% 500 ML 500 ML IV ONE (21:22)
[2024-09-07] MEDS: Sodium Chloride 0.9% 500 ML 500 ML IV ONE (21:23)
[2024-09-07 23:27] VITALS: BP 128/110; PULSE 93; RESP 14; O2SAT 98
== END 2024-09-07 23:34 ==
LOC: ED 19:01
DX: R10.12 Left upper quadrant pain (principal); R11.10 Vomiting, unspecified; F10.129 Alcohol abuse with intoxication, unspecified; R79.89 Other specified abnormal findings of blood chemistry
CPT/HCPCS: 0241U; 36415; 80053; 80307; 81001; 82077; 82150; 83605; 83690; 85025; 96360; 96361; 96374; 96375; 99284; J1171; J2405

== ENCOUNTER 2024-09-11 08:10 | Emergency (ER) | payer BC ==
--- NOTE | 2024-09-11 08:22 | ERPHSYRPT ---
- History of Present Illness Time Seen by Provider: 09/11/24 08:21 Historian: patient, old records Exam Limitations: no limitations Physician History: This is a 33-year-old white female patient who complains of sharp throbbing abdominal pain primarily right upper abdomen with no vomiting and mild diarrhea that began this morning at 6 AM. Patient has had a cholecystectomy in the past. She has a history of recurrent pancreatitis. She continues her alcohol consumption. She admits to drinking 15-20 shots of whiskey a day. Her last oral intake of alcohol was at 10 PM last night. This is the patient's eighth visit to our emergency department in just over 2 months. Patient also has had 2 CAT scans of the abdomen pelvis in the last approximately 2 months that have been negative for pancreatitis. Patient was last seen by me on 09/07/2024 for the same issue but also wanted inpatient alcohol rehab. Patient was evaluated at that time by [facility] who offered the patient a 3-day inpatient stay followed by 28-day outpatient alcohol abuse disorder rehab. Patient declined. Since the visit on 09/07/2024, patient has not followed up as an outpatient [facility] as planned. Patient did use a dose of Librium this morning that she received during her last inpatient visit here into our hospital in June 2024. Patient rates her abdominal pain a 10 out of 10. However, the patient is calm, mildly anxious, but does not appear to be in any distress. Patient has a history of bipolar disorder, multiple personality disorder, anxiety, migraine headaches and hypertension. Patient is not suicidal or homicidal. Timing/Duration: today, gradual onset Quality: aching, sharpness Abdominal Pain Onset Location: RUQ Pain Radiation: no radiation Severity of Pain-Max: moderate Severity of Pain-Current: moderate Modifying Factors: Improves With: nothing Associated Symptoms: diarrhea (Small amount this morning), No chest pain, No shortness of breath Previous symptoms: same symptoms as today, recently seen, recently treated Allergies/Adverse Reactions: No Known Drug Allergies Allergy (Verified 09/11/24 08:24) Home Medications: Chlordiazepoxide HCl 10 mg [Librium 10 MG] 10 mg PO DAILY 09/11/24 [History] Hx Tetanus, Diphtheria Vaccination/Date Given: Yes Hx Influenza Vaccination/Date Given: No Hx Pneumococcal Vaccination/Date Given: No Travel Risk - International Travel Have you traveled outside of the country in past 3 weeks: No - Emerging Infectious Disease Are you exhibiting symptoms associated with any current EIDs: Yes Symptoms: Abdominal Pain - Review of Systems Constitutional: No Symptoms Eyes: No Symptoms Ears, Nose, & Throat: No Symptoms Respiratory: No Symptoms Cardiac: No Symptoms Abdominal/Gastrointestinal: Abdominal Pain, Diarrhea Genitourinary Symptoms: No Symptoms Musculoskeletal: No Symptoms Skin: No Symptoms Neurological: No Symptoms Psychological: Alcohol Abuse, Anxiety Endocrine: No Symptoms Hematologic/Lymphatic: No Symptoms Immunological/Allergic: No Symptoms All Other Systems: Reviewed and Negative - Past Medical History Pertinent Past Medical History: Yes Neurological History: Migraines ENT History: No Pertinent History Cardiac History: No Pertinent History Respiratory History: No Pertinent History Endocrine Medical History: No Pertinent History Musculoskeletal History: No Pertinent History GI Medical History: Gallbladder Disease, Pancreatitis History: No Pertinent History Psycho-Social History: Anxiety, Bipolar, Depression, Other Female Reproductive Disorders: No Pertinent History Other Medical History: multiple personality disorder - Past Surgical History Past Surgical History: Yes Neuro Surgical History: No Pertinent History Cardiac: No Pertinent History Respiratory: No Pertinent History Gastrointestinal: Cholecystectomy Genitourinary: No Pertinent History Musculoskeletal: No Pertinent History Female Surgical History: No Pertinent History Significant Family History: hypertension (father) - Female History Hx Last Menstrual Period: 2 weeks ago - Social History Smoking Status: Current every day smoker How long have you smoked: 3 yrs Exposure to second hand smoke: Yes Drug Use: none Patient Lives Alone: No - Social Determinants of Health Will the patient participate in the screening: Yes Do you worry about a steady place to live?: No In the past 12 months,have you had to go without utilities?: No Transportation Issues: No Has anyone in your support network made you feel unsafe?: No Have you or anyone in your house had to go without enough: No - Nursing Vital Signs Nursing Vital Signs: Initial Vital Signs Temperature 98.3 F 09/11/24 08:13 Pulse Rate 110 H 09/11/24 08:13 Respiratory Rate 18 09/11/24 08:13 Blood Pressure 147/108 09/11/24 08:13 O2 Sat by Pulse Oximetry 97 09/11/24 08:13 Pain Scale Pain Intensity 10 - Physical Exam General Appearance: no apparent distress, alert, anxiety Eye Exam: PERRL/EOMI, eyes nml inspection Ears, Nose, Throat Exam: normal ENT inspection, moist mucous membranes Neck Exam: normal inspection, non-tender, supple, full range of motion Respiratory Exam: normal breath sounds, lungs clear, airway intact, No chest tenderness, No respiratory distress Cardiovascular Exam: tachycardia Gastrointestinal/Abdomen Exam: soft, normal bowel sounds Pelvic Exam: not done Rectal Exam: not done Back Exam: normal inspection, normal range of motion, No CVA tenderness, No vertebral tenderness Extremity Exam: normal inspection, normal range of motion, pelvis stable Neurologic Exam: alert, oriented x 3, cooperative, program control analyst II-XII nml as tested, nml cerebellar function, nml station & gait, sensation nml Skin Exam: normal color, warm, dry Lymphatic Exam: No adenopathy SpO2 Interpretation: normal O2 Delivery: Room Air - Course Nursing assessment & vital signs reviewed: Yes Ordered Tests: Active Orders 24 hr Category Date Time Status AMYLASE Stat Lab 09/11/24 08:25 Ordered CBC W DIFF Stat Lab 09/11/24 08:25 Ordered CMP Stat Lab 09/11/24 08:25 Ordered ETHYL ALCOHOL Stat Lab 09/11/24 08:26 Ordered HCG QUALITATIVE, URINE Stat Lab 09/11/24 Ordered LIPASE Stat Lab 09/11/24 08:25 Ordered Lactic Acid Stat Lab 09/11/24 08:25 Ordered MAG [MAGNESIUM] Stat Lab 09/11/24 08:26 Ordered UA W/RFX UR CULTURE Stat Lab 09/11/24 08:25 Ordered Urine Triage Profile Stat Lab 09/11/24 08:25 Ordered - Progress Progress: unchanged Progress Note: 09/11/24 08:40 My medical decision making and the assignment of moderate complexity to this patient's medical issue today is based on review of the patient's past medical history, review of the patient's medication list, reviewed patient drug allergy list, history present illness and physical findings on examination. The workup in this patient includes CBC, CMP, lactic acid level, magnesium level, amylase, lipase, urinalysis, urine drug triage, ethyl alcohol level. Differential diagnosis includes but is not limited to recurrent pancreatitis, acute alcohol intoxication, urinary tract infection, dehydration, elevated liver function tests The nurse reported to me that the patient eloped. Patient's friend with her in the room told the nurse that the patient was going to [facility] to be evaluated. Medical Desision Making - Independent Historian Additional History obtained from: Relative/friend - Diagnostic Testing Diagnostic test were ordered, analyzed, and reviewed by me: No - Risk of complications Low Risk: Low risk of morbidity from additional dx testing or treatment - Departure Departure Disposition: AMA Clinical Impression: Abdominal pain Condition: Stable Critical Care Time: No Referrals: DOCTOR,NO FAMILY [Primary Care Provider] - Follow up/PCP as directed
[2024-09-11 08:24] VITALS: BP 147/108; PULSE 110; RESP 18; TEMP 98.3; O2SAT 97
[2024-09-11] MEDS ORDERED: ZOFRAN ODT 4 MG ONE (08:35)
[2024-09-11] MEDS: ZOFRAN ODT 4 MG PO ONE (08:36)
== END 2024-09-11 08:38 | disposition left against medical advice (07) ==
LOC: ED 08:10
DX: R10.11 Right upper quadrant pain (principal)
CPT/HCPCS: 99281; Q0162

== ENCOUNTER 2024-12-24 20:01 | Emergency (ER) | payer BC ==
[2024-12-24 20:12] VITALS: TEMP 97.1
[2024-12-24] MEDS ORDERED: Zofran 4 MG/2 ML VIAL ONE ×2 (20:35→23:09)
[2024-12-24] MEDS ORDERED: Sodium Chloride 0.9% 1000 ML 1,000 ML ONE ×3 (20:36→22:59)
[2024-12-24] MEDS ORDERED: MORPHINE SULFATE 4 MG INJ ONE (20:36)
[2024-12-24] MEDS: Zofran 4 MG/2 ML VIAL IV ONE ×2 (20:37→23:12)
[2024-12-24] MEDS: Sodium Chloride 0.9% 1000 ML 1,000 ML IV STA ×3 (20:37→23:00)
[2024-12-24] MEDS: MORPHINE SULFATE 4 MG INJ IV ONE (20:37)
[2024-12-24 20:44] LABS: Absolute Neutrophil Ct (ANC) 10.05 x10^3/uL (1.56-6.13); BASOPHIL % 0.4 % (0.1-1.2); Basophil (Absolute #) 0.05 x10^3/uL (0.01-0.08); Eosinophil % 0.7 % (0.7-5.8); Eosinophil (Absolute #) 0.09 x10^3/uL (0.04-0.36); Hematocrit 45.2 % (34.1-44.9); Hemoglobin 16.1 g/dL (11.2-15.7); IMMATURE GRAN # 0.12 x10^3u/L (0.001-0.031); IMMATURE GRAN % 0.9 % (0.001-0.429); Lymphocytes % 18.1 % (19.3-51.7); Mean Cell Volume 84.5 fL (79.4-94.8); Mean Corpuscular Hemoglobin 30.1 pg (25.6-32.2); Mean Corpuscular Hgb Concent. 35.6 g/dL (32.2-35.5); Mean Platelet Volume 10.5 fL (9.4-12.3); Monocyte (Absolute #) 0.99 x10^3/uL (0.24-0.86); Monocytes % 7.2 % (4.7-12.5); NUCLEATED RBC # 0.02 x10^3u/L (0.00-0.012); NUCLEATED RBC % 0.1 % (0.00-0.2); Neutrophil % 72.7 % (34.0-71.1); Platelet Count 394 x10^3/uL (182-369); Red Blood Count 5.35 x10^6/uL (3.93-5.22); Red Cell Distribution Width 17.6 % (11.7-14.4); White Blood Count 13.8 x10^3/uL (3.98-10.04)
[2024-12-24 20:44] LABS: Appearance Clear (Clear); Bacteria None Seen /HPF (None Seen); Bilirubin Small (Negative); Blood Negative (Negative); Epithelial Cells Few /HPF (None Seen); Glucose, Urine Negative (Negative); Ketones 15 (Negative); Leukocyte Esterase Negative (Negative); Nitrite Negative (Negative); Ph 5.5 (4.6-8.0); Protein,Urine Dip 30 (Negative); RBC 0-2 /HPF (0-5); Specific Gravity 1.025 (1.005-1.030); WBC 0-2 /HPF (0-5)
--- NOTE | 2024-12-24 20:47 | ERPHSYRPT ---
- History of Present Illness Time Seen by Provider: 12/24/24 20:07 Historian: patient, family Exam Limitations: no limitations Patient Subjective Stated Complaint: abd pain, nausea and vomiting. Pt states, "I started drinking again". Triage Nursing Assessment: Pt ambulated into ER without difficulty, spouse at bedside. Pt c/o abd pain, primarily on the left side. Pt c/o nausea and vomiting. Pt has started feeling bad x5 days but worse today. Pt has began drinking again x1 month. Pt has drank 14 whiskey shooters today. Abd soft with hypoactive bs x4 quad, tender on palpation to LUQ and LLQ. LBM 12/20/24, pt states, "I haven't ate in 5 days, just drinking alcohol". Physician History: 34-year-old female with history of alcohol abuse, chronic pancreatitis who was sober for a while but relapsed 3 weeks ago, drinking heavily having 15-20 shooters daily presented in the ER with increasing pain left side with associated nausea and vomiting. Patient reports she is not able to hold anything down but alcohol which she keeps drinking for the last 5 days and did not eat anything. Patient reports feeling weak fatigued tired and dehydrated. She is tachycardic with heart rate in 140s. Denies any chest pain or shortness of breath. Pain is moderate to severe sharp shooting and similar to previous but except more on the left side than the right. Allergies/Adverse Reactions: No Known Drug Allergies Allergy (Verified 12/24/24 20:22) Home Medications: Clonidine HCl 0.1 mg [Clonidine 0.1 mg Tablet] 1 tab PO BID 12/24/24 [History] Hydroxyzine HCl 25 mg [Atarax 25 mg] 1 tab PO BID PRN 12/24/24 [History] Hx Tetanus, Diphtheria Vaccination/Date Given: Yes Hx Influenza Vaccination/Date Given: No Hx Pneumococcal Vaccination/Date Given: No Travel Risk - International Travel Have you traveled outside of the country in past 3 weeks: No - Emerging Infectious Disease Are you exhibiting symptoms associated with any current EIDs: Yes Symptoms: Abdominal Pain, Vomitting - Review of Systems Constitutional: Fatigue, Weakness Eyes: No Symptoms Ears, Nose, & Throat: No Symptoms Respiratory: No Symptoms Cardiac: No Symptoms Abdominal/Gastrointestinal: Abdominal Pain, Nausea, Vomiting Musculoskeletal: Back Pain Skin: No Symptoms Neurological: No Symptoms Psychological: Alcohol Abuse Endocrine: No Symptoms Hematologic/Lymphatic: No Symptoms Immunological/Allergic: No Symptoms - Past Medical History Pertinent Past Medical History: Yes Neurological History: Migraines ENT History: No Pertinent History Cardiac History: No Pertinent History Respiratory History: No Pertinent History Endocrine Medical History: No Pertinent History Musculoskeletal History: No Pertinent History GI Medical History: Gallbladder Disease, Pancreatitis History: No Pertinent History Psycho-Social History: Anxiety, Bipolar, Depression, Other Female Reproductive Disorders: No Pertinent History Other Medical History: multiple personality disorder - Past Surgical History Past Surgical History: Yes Neuro Surgical History: No Pertinent History Cardiac: No Pertinent History Respiratory: No Pertinent History Gastrointestinal: Cholecystectomy Genitourinary: No Pertinent History Musculoskeletal: No Pertinent History Female Surgical History: No Pertinent History Significant Family History: hypertension (father) - Female History Hx Last Menstrual Period: 2 months ago Hx Now: No - Social History Smoking Status: Current every day smoker Exposure to second hand smoke: Yes Drug Use: none - Social Determinants of Health Will the patient participate in the screening: Yes Do you worry about a steady place to live?: No Do you have any problems with any of the following?: No known problems In the past 12 months,have you had to go without utilities?: No Transportation Issues: No Has anyone in your support network made you feel unsafe?: No Have you or anyone in your house had to go w/o enough food: No - Nursing Vital Signs Nursing Vital Signs: Initial Vital Signs Temperature 97.1 F 12/24/24 20:08 Pulse Rate 155 H 12/24/24 20:08 Respiratory Rate 16 12/24/24 20:08 Blood Pressure 130/107 12/24/24 20:08 O2 Sat by Pulse Oximetry 98 12/24/24 20:08 Pain Scale Pain Intensity 2 - Physical Exam General Appearance: no apparent distress, alert, anxiety Eye Exam: PERRL/EOMI Ears, Nose, Throat Exam: normal ENT inspection, TMs normal, pharynx normal Neck Exam: normal inspection, non-tender, supple, full range of motion Respiratory Exam: normal breath sounds, lungs clear Cardiovascular Exam: normal heart sounds, tachycardia Gastrointestinal/Abdomen Exam: soft, normal bowel sounds, tenderness (Epigastric/left upper quadrant tenderness, enlarged liver) Back Exam: normal inspection Extremity Exam: normal inspection, normal range of motion Neurologic Exam: alert, oriented x 3, cooperative Skin Exam: normal color SpO2 Interpretation: normal SpO2: 98 O2 Delivery: Room Air - Course EKG Interpreted by Me: RATE (140), Sinus Tach, NORMAL AXIS, NORMAL INTERVALS, Non-specific ST Changes Ordered Tests: Active Orders 24 hr Category Date Time Status IV Insertion STAT Care 12/24/24 20:31 Active NPO (ED) STAT Care 12/24/24 20:31 Active Telemetry q4h Care 12/24/24 21:10 Active ABDOMEN AND PELVIS W/0 CONTRAS [CT] Stat Exams 12/24/24 21:26 Taken AMYLASE Stat Lab 12/24/24 20:30 Completed CBC W DIFF Stat Lab 12/24/24 20:30 Completed CMP Stat Lab 12/24/24 20:30 Completed Direct Bilirubin Stat Lab 12/25/24 00:10 Ordered ETHYL ALCOHOL Stat Lab 12/24/24 20:30 Completed HCG QUALITATIVE, SERUM Stat Lab 12/24/24 20:30 Completed LIPASE Stat Lab 12/24/24 20:30 Completed Lactic Acid Stat Lab 12/24/24 20:31 Completed Lactic Acid Stat Lab 12/24/24 23:44 Ordered Lactic Acid Stat Lab 12/24/24 23:54 Received MAGNESIUM Stat Lab 12/24/24 20:40 Completed PROTIME WITH INR Stat Lab 12/24/24 20:30 Completed UA W/RFX UR CULTURE Stat Lab 12/24/24 20:25 Completed Medication Summary Generic Name Dose Route Start Last Admin Trade Name Freq PRN Reason Stop Dose Admin Potassium Chloride 20 meq in 100 mls @ 50 mls/hr 12/24/24 21:15 12/24/24 23:01 Potassium Chloride 20 Meq In Water 100ml IV 12/25/24 01:14 50 mls/hr Q2H DANE Administration Discontinued Medications Generic Name Dose Route Start Last Admin Trade Name Freq PRN Reason Stop Dose Admin Sodium Chloride 1,000 mls @ 999 mls/hr 12/24/24 20:34 12/24/24 22:17 Sodium Chloride 0.9% 1000 Ml IV 12/24/24 21:34 Infused .Q1H1M STA Infusion Sodium Chloride Confirm 12/24/24 20:36 Sodium Chloride 0.9% 1000 Ml Administered 12/24/24 20:37 Dose 1,000 mls @ ud .ROUTE .STK-MED ONE Sodium Chloride 1,000 mls @ 999 mls/hr 12/24/24 20:46 12/24/24 22:57 Sodium Chloride 0.9% 1000 Ml IV 12/24/24 21:46 Infused .Q1H1M STA Infusion Sodium Chloride Confirm 12/24/24 21:54 Sodium Chloride 0.9% 1000 Ml Administered 12/24/24 21:55 Dose 1,000 mls @ ud .ROUTE .STK-MED ONE Sodium Chloride 1,000 mls @ 999 mls/hr 12/24/24 22:12 12/24/24 23:00 Sodium Chloride 0.9% 1000 Ml IV 12/24/24 23:12 125 mls/hr .Q1H1M STA Administration Sodium Chloride Confirm 12/24/24 22:59 Sodium Chloride 0.9% 1000 Ml Administered 12/24/24 23:00 Dose 1,000 mls @ ud .ROUTE .STK-MED ONE Lorazepam 2 mg 12/24/24 23:00 12/24/24 23:02 Lorazepam 2 Mg/1 Ml 2 Mg Vial IV 12/24/24 23:01 2 mg STAT ONE Administration Lorazepam Confirm 12/24/24 23:01 Lorazepam 2 Mg/1 Ml 2 Mg Vial Administered 12/24/24 23:02 Dose 2 mg .ROUTE .STK-MED ONE Morphine Sulfate 4 mg 12/24/24 20:31 12/24/24 20:37 Morphine Sulfate 4 Mg/Ml Injection IV 12/24/24 20:32 4 mg STAT ONE Administration Morphine Sulfate Confirm 12/24/24 20:36 Morphine Sulfate 4 Mg/Ml Injection Administered 12/24/24 20:37 Dose 4 mg .ROUTE .STK-MED ONE Ondansetron HCl 4 mg 12/24/24 20:31 12/24/24 20:37 Ondansetron Hcl 4 Mg/2 Ml Vial IV 12/24/24 20:32 4 mg STAT ONE Administration Ondansetron HCl Confirm 12/24/24 20:35 Ondansetron Hcl 4 Mg/2 Ml Vial Administered 12/24/24 20:36 Dose 4 mg .ROUTE .STK-MED ONE Ondansetron HCl 4 mg 12/24/24 23:08 12/24/24 23:12 Ondansetron Hcl 4 Mg/2 Ml Vial IV 12/24/24 23:09 4 mg STAT ONE Administration Ondansetron HCl Confirm 12/24/24 23:09 Ondansetron Hcl 4 Mg/2 Ml Vial Administered 12/24/24 23:10 Dose 4 mg .ROUTE .STK-[facility] ONE Pantoprazole Sodium 40 mg 12/24/24 23:08 12/24/24 23:12 Pantoprazole 40 Mg Vial IV 12/24/24 23:09 40 mg STAT ONE Administration Pantoprazole Sodium Confirm 12/24/24 23:09 Pantoprazole 40 Mg Vial Administered 12/24/24 23:10 Dose 40 mg IV .STK-MED ONE Lab/Rad Data: Laboratory Result Diagrams 12/24/24 20:30 12/24/24 20:30 Laboratory Results 12/24/24 12/24/24 12/24/24 Range/Units 20:40 20:31 20:30 WBC (3.98-10.04) x10^3/uL RBC (3.93-5.22) x10^6/uL Hgb (11.2-15.7) g/dL Hct (34.1-44.9) % MCV (79.4-94.8) fL MCH (25.6-32.2) pg MCHC (32.2-35.5) g/dL RDW (11.7-14.4) % Plt Count (182-369) x10^3/uL MPV (9.4-12.3) fL Gran % (34.0-71.1) % Immature Gran % (Auto) (0.001-0.429) % Nucleat RBC Rel Count (0.00-0.2) % Eos # (Auto) (0.04-0.36) x10^3/uL Immature Gran # (Auto) (0.001-0.031) x10^3u/L Absolute Lymphs (auto) (1.18-3.74) x10^3/uL Absolute Monos (auto) (0.24-0.86) x10^3/uL Absolute Nucleated RBC (0.00-0.012) x10^3u/L Lymphocytes % (19.3-51.7) % Monocytes % (4.7-12.5) % Eosinophils % (0.7-5.8) % Basophils % (0.1-1.2) % Absolute Granulocytes (1.56-6.13) x10^3/uL Basophils # (0.01-0.08) x10^3/uL PT (9.4-12.5) SECONDS INR (0.8-3.0) Sodium (135-145) mmol/L Potassium (3.5-5.1) mmol/L Chloride (98-107) mmol/L Carbon Dioxide (22-30) mmol/L Anion Gap (5-15) MEQ/L BUN (7-17) mg/dL Creatinine (0.52-1.04) mg/dL Estimated GFR ML/MIN Glucose (74-106) mg/dL Lactic Acid 16.2 H (0.4-2.0) Calcium (8.4-10.2) mg/dL Magnesium 2.1 (1.6-2.3) mg/dL Total Bilirubin (0.2-1.3) mg/dL AST (14-36) U/L ALT (0-35) U/L Alkaline Phosphatase (38-126) U/L Serum Total Protein (6.3-8.2) g/dL Albumin (3.5-5.0) g/dL Amylase (30-110) U/L Lipase (23-300) U/L Serum HCG, Qual NEGATIVE (NEGATIVE) Urine Color (Yellow) Urine Appearance (Clear) Urine pH (4.6-8.0) Ur Specific [place] (1.005-1.030) Urine Protein (Negative) Urine Glucose (UA) (Negative) mg/dL Urine Ketones (Negative) Urine Blood (Negative) Urine Nitrite (Negative) Urine Bilirubin (Negative) Urine Urobilinogen (0.2) mg/dL Ur Leukocyte Esterase (Negative) U Hyaline Cast (Auto) (0-2) /LPF Urine Microscopic RBC (0-5) /HPF Urine Microscopic WBC (0-5) /HPF Ur Epithelial Cells (None Seen) /HPF Urine Bacteria (None Seen) /HPF Urine Culture Reflexed (NO) Ethyl Alcohol (0-10) mg/dL 12/24/24 12/24/24 12/24/24 Range/Units 20:30 20:30 20:30 WBC 13.8 H (3.98-10.04) x10^3/uL RBC 5.35 H (3.93-5.22) x10^6/uL Hgb 16.1 H (11.2-15.7) g/dL Hct 45.2 H (34.1-44.9) % MCV 84.5 (79.4-94.8) fL MCH 30.1 (25.6-32.2) pg MCHC 35.6 H (32.2-35.5) g/dL RDW 17.6 H (11.7-14.4) % Plt Count 394 H (182-369) x10^3/uL MPV 10.5 (9.4-12.3) fL Gran % 72.7 H (34.0-71.1) % Immature Gran % (Auto) 0.9 H (0.001-0.429) % Nucleat RBC Rel Count 0.1 (0.00-0.2) % Eos # (Auto) 0.09 (0.04-0.36) x10^3/uL Immature Gran # (Auto) 0.12 H (0.001-0.031) x10^3u/L Absolute Lymphs (auto) 2.50 (1.18-3.74) x10^3/uL Absolute Monos (auto) 0.99 H (0.24-0.86) x10^3/uL Absolute Nucleated RBC 0.02 H (0.00-0.012) x10^3u/L Lymphocytes % 18.1 L (19.3-51.7) % Monocytes % 7.2 (4.7-12.5) % Eosinophils % 0.7 (0.7-5.8) % Basophils % 0.4 (0.1-1.2) % Absolute Granulocytes 10.05 H (1.56-6.13) x10^3/uL Basophils # 0.05 (0.01-0.08) x10^3/uL PT 16.0 H (9.4-12.5) SECONDS INR 1.51 (0.8-3.0) Sodium 129 L (135-145) mmol/L Potassium 2.8 L* (3.5-5.1) mmol/L Chloride 73 L (98-107) mmol/L Carbon Dioxide 27 (22-30) mmol/L Anion Gap 32.1 H (5-15) MEQ/L BUN 5 L (7-17) mg/dL Creatinine 0.55 (0.52-1.04) mg/dL Estimated GFR 122.5 ML/MIN Glucose 180 H (74-106) mg/dL Lactic Acid (0.4-2.0) Calcium 8.3 L (8.4-10.2) mg/dL Magnesium (1.6-2.3) mg/dL Total Bilirubin 6.50 H (0.2-1.3) mg/dL AST 657 H (14-36) U/L ALT 153 H (0-35) U/L Alkaline Phosphatase 485 H (38-126) U/L Serum Total Protein 7.5 (6.3-8.2) g/dL Albumin 4.4 (3.5-5.0) g/dL Amylase 77 (30-110) U/L Lipase 459 H (23-300) U/L Serum HCG, Qual (NEGATIVE) Urine Color (Yellow) Urine Appearance (Clear) Urine pH (4.6-8.0) Ur Specific [place] (1.005-1.030) Urine Protein (Negative) Urine Glucose (UA) (Negative) mg/dL Urine Ketones (Negative) Urine Blood (Negative) Urine Nitrite (Negative) Urine Bilirubin (Negative) Urine Urobilinogen (0.2) mg/dL Ur Leukocyte Esterase (Negative) U Hyaline Cast (Auto) (0-2) /LPF Urine Microscopic RBC (0-5) /HPF Urine Microscopic WBC (0-5) /HPF Ur Epithelial Cells (None Seen) /HPF Urine Bacteria (None Seen) /HPF Urine Culture Reflexed (NO) Ethyl Alcohol 196 H (0-10) mg/dL // Range/Units 20:25 WBC (3.98-10.04) x10^3/uL RBC (3.93-5.22) x10^6/uL Hgb (11.2-15.7) g/dL Hct (34.1-44.9) % MCV (79.4-94.8) fL MCH (25.6-32.2) pg MCHC (32.2-35.5) g/dL RDW (11.7-14.4) % Plt Count (182-369) x10^3/uL MPV (9.4-12.3) fL Gran % (34.0-71.1) % Immature Gran % (Auto) (0.001-0.429) % Nucleat RBC Rel Count (0.00-0.2) % Eos # (Auto) (0.04-0.36) x10^3/uL Immature Gran # (Auto) (0.001-0.031) x10^3u/L Absolute Lymphs (auto) (1.18-3.74) x10^3/uL Absolute Monos (auto) (0.24-0.86) x10^3/uL Absolute Nucleated RBC (0.00-0.012) x10^3u/L Lymphocytes % (19.3-51.7) % Monocytes % (4.7-12.5) % Eosinophils % (0.7-5.8) % Basophils % (0.1-1.2) % Absolute Granulocytes (1.56-6.13) x10^3/uL Basophils # (0.01-0.08) x10^3/uL PT (9.4-12.5) SECONDS INR (0.8-3.0) Sodium (135-145) mmol/L Potassium (3.5-5.1) mmol/L Chloride (98-107) mmol/L Carbon Dioxide (22-30) mmol/L Anion Gap (5-15) MEQ/L BUN (7-17) mg/dL Creatinine (0.52-1.04) mg/dL Estimated GFR ML/MIN Glucose (74-106) mg/dL Lactic Acid (0.4-2.0) Calcium (8.4-10.2) mg/dL Magnesium (1.6-2.3) mg/dL Total Bilirubin (0.2-1.3) mg/dL AST (14-36) U/L ALT (0-35) U/L Alkaline Phosphatase (38-126) U/L Serum Total Protein (6.3-8.2) g/dL Albumin (3.5-5.0) g/dL Amylase (30-110) U/L Lipase (23-300) U/L Serum HCG, Qual (NEGATIVE) Urine Color Dark Yellow A (Yellow) Urine Appearance Clear (Clear) Urine pH 5.5 (4.6-8.0) Ur Specific [place] 1.025 (1.005-1.030) Urine Protein 30 (Negative) Urine Glucose (UA) Negative (Negative) mg/dL Urine Ketones 15 A (Negative) Urine Blood Negative (Negative) Urine Nitrite Negative (Negative) Urine Bilirubin Small A (Negative) Urine Urobilinogen 1.0 A (0.2) mg/dL Ur Leukocyte Esterase Negative (Negative) U Hyaline Cast (Auto) 11-20 (0-2) /LPF Urine Microscopic RBC 0-2 (0-5) /HPF Urine Microscopic WBC 0-2 (0-5) /HPF Ur Epithelial Cells Few (None Seen) /HPF Urine Bacteria None Seen (None Seen) /HPF Urine Culture Reflexed NO (NO) Ethyl Alcohol (0-10) mg/dL - Progress Progress: improved, pain not gone completely, re-examined Progress Note: 12/25/24 00:13 34-year-old alcoholic is evaluated in the ER for upper abdominal pain with nausea vomiting and dehydration. Patient was tachycardic on presentation, she is given fluids and symptomatic treatment, on reevaluation she is feeling better. EKG is sinus tachycardia with no acute ischemic changes Workup showed white count of 13, hemoglobin of 16 which I believe is secondary to hemoconcentration. Chemistries with a sodium of 129, potassium of 2.8 within normal magnesium of 2.1. Started on IV potassium runs. Has normal renal functions but LFTs showed a total bili of 6.5, ALT in 150s, AST 650s and ALP 485, patient has normal bilirubin before. Has history of cholecystectomy. Patient has a lactate of 16.2, no obvious focus of infection, anion gap of 30 and a normal bicarb 27 and glucose in 180s I have obtained CT abdomen pelvis without contrast which showed hepatomegaly, no obvious stone in the CBD or dilated CBD but does have some stranding at the head of pancreas suggesting mild acute pancreatitis per preliminary report, official final report is pending. I believe patient is having alcohol induced hepatitis and pancreatitis I have discussed with Dr. Marino hospitalist here at [place], recommended transfer to facility with cardiology services. On reevaluation her tachycardia is improved in 110s, patient is feeling anxious again which I believe is secondary to falling alcohol level because of fluids. Patient initial alcohol was in 190s, given Ativan and feeling better on reevaluation again. [facility] available, discussed with hospitalist at [place] Dr. Hilario, reviewed history, workup, agreed with transfer. After shared the results of workup with patient and family and plan of transfer which they understand and agree. Complexity of problem addressed: High Complexity of data reviewed/analyzed: Extensive Risk of complication/mortality/morbidity: High Discussed with Dr.: Srikanth, Other (Dr. Hilario [place] hospitalist) Counseled pt/family regarding: lab results, diagnosis, rad results, smoking cessation Medical Desision Making - Independent Historian Additional History obtained from: Spouse - Discussion of managment Care discussed with:: hospitalist Reviewed:: Test results Agreed on:: Treatment plan Will see patient: in hospital - Diagnostic Testing Diagnostic test were ordered, analyzed, and reviewed by me: Yes Radiological Interpretation: Reviewed by me, Teleradiologist Report - Risk of complications The pt has a mod risk of morbidity or mortality based on: Need for prescription drug management The pt has a high risk of morbidity or mortality based on: Drug therapy requiring intensive monitoring for toxicity, Decision regarding hospitilization or escalation of hosp level of care - Departure Departure Disposition: Transfer Clinical Impression: Alcoholic hepatitis without ascites, Alcohol abuse, Acute on chronic pancreatitis, Hypokalemia, Alcoholic gastritis Condition: Fair Critical Care Time: Yes Critical Care Time(excluding separately billable procedures): Critical 30-74 mins Referrals: DOCTOR,NO FAMILY [Primary Care Provider] - Follow up/PCP as directed
[2024-12-24 20:56] LABS: HCG SERUM TEST NEGATIVE (NEGATIVE)
[2024-12-24 20:57] LABS: ALBUMIN 4.4 g/dL (3.5-5.0); ANION GAP 32.1 MEQ/L (5-15); BILIRUBIN,TOTAL 6.5 mg/dL (0.2-1.3); Calcium 8.3 mg/dL (8.4-10.2); Creatinine 1 0.55 mg/dL (0.52-1.04); EST GLOMERULAR FILTRATION RATE 122.5 ML/MIN; INR 1.51 (0.8-3.0); Total Protein 7.5 g/dL (6.3-8.2)
[2024-12-24 21:06] LABS: Potassium 2.8 mmol/L (3.5-5.1)
[2024-12-24] MEDS ORDERED: POTASSIUM CHLORIDE 20 mEq IN WATER 100ML 100 ML IV ONE ×2 (21:13→22:59)
[2024-12-24] MEDS: POTASSIUM CHLORIDE 20 mEq IN WATER 100ML 20 MEQ/100 ML BAG IV SCH (21:16)
[2024-12-24] MEDS ORDERED: Ativan 2 MG/1 ML VIAL ONE (23:01)
[2024-12-24] MEDS: Ativan 2 MG/1 ML VIAL IV ONE (23:02)
[2024-12-24] MEDS ORDERED: PROTONIX 40 MG IV IV ONE (23:09)
[2024-12-24] MEDS: PROTONIX 40 MG IV IV ONE (23:12)
[2024-12-25] MEDS ORDERED: MORPHINE SULFATE 4 MG INJ ONE (01:10)
[2024-12-25] MEDS: MORPHINE SULFATE 4 MG INJ IV ONE (01:11)
[2024-12-25] MEDS ORDERED: SUBLIMAZE 100 MCG/2 ML ONE (03:53)
[2024-12-25] MEDS ORDERED: Reglan 10 MG/2 ML ONE (03:53)
[2024-12-25] MEDS ORDERED: BENADRYL 50 MG/ML ONE (03:53)
[2024-12-25] MEDS: BENADRYL 50 MG/ML IV ONE (04:00)
[2024-12-25] MEDS: SUBLIMAZE 100 MCG/2 ML IV ONE (04:00)
[2024-12-25] MEDS: Reglan 10 MG/2 ML IV ONE (04:01)
[2024-12-25 06:02] VITALS: BP 117/92; PULSE 134; RESP 21; O2SAT 97
--- NOTE | 2024-12-25 08:14 | XRAY ---
Indication: Abdomen pain, nausea, and vomiting 5 days. History of pancreatitis. Multiple contiguous axial images obtained through the abdomen and pelvis without contrast. Comparison: August 20, 2024 Lung bases remain clear. Heart not enlarged. Noncontrasted stomach and bowel loops nonobstructed. Head of pancreas demonstrates mild peripancreatic stranding, possible mild or early pancreatitis. Again markedly fatty liver with worsening 26.6 cm hepatomegaly. Again cholecystectomy. No free fluid/air. Remaining spleen, adrenal glands, kidneys, ureters, bladder, uterus, and aorta are unremarkable for noncontrast exam. Osseous structures demonstrates new nondisplaced healing anterior right 5/6 rib fractures. Impression: 1. Peripancreatic head stranding. Rule out mild/early pancreatitis. 2. Worsening fatty hepatomegaly. 3. Incidental new healing right 5/6 rib fractures.
== END 2024-12-25 06:15 | disposition short-term general hospital (02) ==
LOC: ED 20:01
DX: K70.10 Alcoholic hepatitis without ascites (principal); F10.10 Alcohol abuse, uncomplicated; Y90.6 Blood alcohol level of 120-199 mg/100 ml; K85.90 Acute pancreatitis without necrosis or infection, unspecified; K86.1 Other chronic pancreatitis; E87.6 Hypokalemia; K29.20 Alcoholic gastritis without bleeding; E80.6 Other disorders of bilirubin metabolism; Z79.899 Other long term (current) drug therapy; Z72.0 Tobacco use
CPT/HCPCS: 36415; 74176; 80053; 81001; 82077; 82150; 82248; 83605; 83690; 83735; 84703; 85025; 85610; 96361; 96365; 96366; 96374; 96375; 96376; 99285; 99291; J1200; J2060; J2270; J2405; J3010; J3480

== ENCOUNTER 2025-01-19 17:25 | Inpatient (IN) | payer BC ==
[2025-01-19] MEDS ORDERED: Sodium Chloride 0.9% 1000 ML 1,000 ML ONE (17:53)
[2025-01-19] MEDS ORDERED: Zofran 4 MG/2 ML VIAL ONE (17:53)
[2025-01-19] MEDS: Sodium Chloride 0.9% 1000 ML 1,000 ML IV STA (17:54)
[2025-01-19] MEDS: Zofran 4 MG/2 ML VIAL IV ONE (17:54)
[2025-01-19 18:10] LABS: Basophil (Absolute #) 0.15 x10^3/uL (0.01-0.08); Eosinophil % 0.5 % (0.7-5.8); Eosinophil (Absolute #) 0.07 x10^3/uL (0.04-0.36); IMMATURE GRAN # 0.06 x10^3u/L (0.001-0.031); IMMATURE GRAN % 0.4 % (0.001-0.429); Lymphocyte (Absolute #) 3.17 x10^3/uL (1.18-3.74); Lymphocytes % 21.5 % (19.3-51.7); Mean Cell Volume 94.7 fL (79.4-94.8); Mean Corpuscular Hemoglobin 31.6 pg (25.6-32.2); Mean Corpuscular Hgb Concent. 33.3 g/dL (32.2-35.5); Mean Platelet Volume 9.9 fL (9.4-12.3); Monocyte (Absolute #) 0.98 x10^3/uL (0.24-0.86); Monocytes % 6.7 % (4.7-12.5); Neutrophil % 69.9 % (34.0-71.1); Platelet Count 640 x10^3/uL (182-369); Red Blood Count 4.12 x10^6/uL (3.93-5.22); Red Cell Distribution Width 16.1 % (11.7-14.4); White Blood Count 14.7 x10^3/uL (3.98-10.04)
[2025-01-19 18:27] LABS: INR 1.3 (0.8-3.0); PROTIME 13.9 SECONDS (9.4-12.5)
[2025-01-19 18:37] LABS: ALBUMIN 3.5 g/dL (3.5-5.0); ALKALINE PHOSPHATASE 446 U/L (38-126); ANION GAP 20.5 MEQ/L (5-15); BLOOD UREA NITROGEN 3 mg/dL (7-17); CHLORIDE 86 mmol/L (98-107); Calcium 8.8 mg/dL (8.4-10.2); Carbon Dioxide 31 mmol/L (22-30); EST GLOMERULAR FILTRATION RATE 132.3 ML/MIN; Glucose 157 mg/dL (74-106); LIPASE 35 U/L (23-300); SGOT/AST 445 U/L (14-36); SGPT/ALT 104 U/L (0-35); SODIUM 135 mmol/L (135-145); TROPONIN < 0.012 ng/mL (0.000-0.033); Total Protein 6.5 g/dL (6.3-8.2)
[2025-01-19 18:40] LABS: Potassium 2.9 mmol/L (3.5-5.1)
[2025-01-19 18:47] LABS: HCG SERUM TEST NEGATIVE (NEGATIVE)
[2025-01-19] MEDS ORDERED: MORPHINE SULFATE 4 MG INJ ONE (18:57)
[2025-01-19] MEDS ORDERED: Magnesium 1 Gm / 100 Ml D5W*** 100 ML IV ONE ×2 (18:57→19:49)
[2025-01-19] MEDS ORDERED: Reglan 10 MG/2 ML ONE (18:57)
--- NOTE | 2025-01-19 19:00 | ERPHSYRPT ---
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 She is alert and oriented. Skin and eyes are jaundiced. No active vomiting during assessment. Oral mucosa dry, lips cracked. ALVA WNL. NO SOB. Physician History: 34-year-old female history of alcoholic cirrhosis presents to our ED for evaluation and treatment of nausea and vomiting x 6 days. Patient's last drink was this morning. Patient states she is unable to tolerate p.o. Patient states she feels "sick". Patient feels nauseous. No trauma no fever. Symptoms are mild to moderate in intensity. Symptoms are progressive. No specific worsening improving factors. Patient voices no other complaints or concerns at this time. Portions of this note were created with voice recognition technology. There may be grammatical, spelling, punctuation or sound alike errors Timing/Duration: day(s) (6 days) Severity: moderate Modifying Factors: Improves With: nothing Associated Symptoms: denies symptoms Allergies/Adverse Reactions: No Known Drug Allergies Allergy (Verified 01/19/25 17:39) Home Medications: Fluconazole [Diflucan] 200 mg PO DAILY 01/19/25 [History] Furosemide 40 mg [Lasix 40 MG] 40 mg PO DAILY 01/19/25 [History] PANTOPRAZOLE 40 mg Tablet [Protonix 40MG Tablet] 40 mg PO BID 01/19/25 [History] Propranolol HCl [Inderal ] 20 mg PO BID 01/19/25 [History] Spironolactone 25 mg [Aldactone 25 MG] 25 mg PO DAILY 01/19/25 [History] Hx Tetanus, Diphtheria Vaccination/Date Given: Yes Hx Influenza Vaccination/Date Given: No Hx Pneumococcal Vaccination/Date Given: No Travel Risk - International Travel Have you traveled outside of the country in past 3 weeks: No - Emerging Infectious Disease Are you exhibiting symptoms associated with any current EIDs: Yes Symptoms: Abdominal Pain, Vomitting - Review of Systems Constitutional: No Symptoms, No Fever, No Chills Eyes: No Symptoms Ears, Nose, & Throat: No Symptoms Respiratory: No Symptoms, No Cough, No Dyspnea Cardiac: No Symptoms, No Chest Pain, No Edema, No Syncope Abdominal/Gastrointestinal: No Symptoms, No Abdominal Pain, No Nausea, No Vomiting, No Diarrhea Genitourinary Symptoms: No Symptoms, No Dysuria Musculoskeletal: No Symptoms, No Back Pain, No Neck Pain Skin: No Symptoms, No Rash Neurological: No Symptoms, No Dizziness, No Focal Weakness, No Sensory Changes Psychological: No Symptoms Endocrine: No Symptoms Hematologic/Lymphatic: No Symptoms Immunological/Allergic: No Symptoms All Other Systems: Reviewed and Negative - Past Medical History Pertinent Past Medical History: Yes Neurological History: Migraines ENT History: No Pertinent History Cardiac History: Hypertension Respiratory History: No Pertinent History Endocrine Medical History: No Pertinent History Musculoskeletal History: No Pertinent History GI Medical History: Gallbladder Disease, Pancreatitis History: No Pertinent History Psycho-Social History: Anxiety, Bipolar, Depression, Other Female Reproductive Disorders: No Pertinent History Other Medical History: multiple personality disorder, alcoholism - Past Surgical History Past Surgical History: Yes Neuro Surgical History: No Pertinent History Cardiac: No Pertinent History Respiratory: No Pertinent History Gastrointestinal: Cholecystectomy Genitourinary: No Pertinent History Musculoskeletal: No Pertinent History Female Surgical History: No Pertinent History Significant Family History: hypertension (father) - Female History Hx Last Menstrual Period: 2 months ago Hx Now: No - Social History Smoking Status: Current every day smoker Exposure to second hand smoke: Yes Drug Use: none - Social Determinants of Health Will the patient participate in the screening: Yes Do you worry about a steady place to live?: No Do you have any problems with any of the following?: No known problems In the past 12 months,have you had to go without utilities?: No Transportation Issues: No Has anyone in your support network made you feel unsafe?: No Have you or anyone in your house had to go w/o enough food: No - Nursing Vital Signs Nursing Vital Signs: Initial Vital Signs Temperature 98.3 F 01/19/25 17:43 Pulse Rate 135 H 01/19/25 17:43 Respiratory Rate 12 01/19/25 17:43 Blood Pressure 119/89 01/19/25 17:43 O2 Sat by Pulse Oximetry 94 L 01/19/25 17:43 Pain Scale Pain Intensity 8 - Physical Exam General Appearance: no apparent distress, alert Eye Exam: PERRL/EOMI, scleral icterus Ears, Nose, Throat Exam: normal ENT inspection, moist mucous membranes Neck Exam: normal inspection, full range of motion Respiratory Exam: normal breath sounds, lungs clear, airway intact, No respiratory distress Cardiovascular Exam: regular rate/rhythm, normal heart sounds, normal peripheral pulses Gastrointestinal/Abdomen Exam: soft, normal bowel sounds, tenderness (Mild right upper quadrant tenderness history of cholecystectomy), No mass Back Exam: normal inspection, normal range of motion, No CVA tenderness, No vertebral tenderness Extremity Exam: normal inspection, normal range of motion, pelvis stable Neurologic Exam: alert, oriented x 3, cooperative, normal mood/affect, sensation nml, No motor deficits Skin Exam: normal color, warm, dry, jaundice, No rash Lymphatic Exam: No adenopathy SpO2 Interpretation: normal SpO2: 98 O2 Delivery: Room Air - Course Nursing assessment & vital signs reviewed: Yes - CT Exams Abdomen/Pelvis CT Interpretation: Tele-radiologist Report (Fatty hepatomegaly otherwise no acute findings) Ordered Tests: Active Orders 24 hr Category Date Time Status IV Insertion STAT Care 01/19/25 17:45 Active Telemetry q4h Care 01/19/25 18:54 Active ABDOMEN AND PELVIS W/0 CONTRAS [CT] Stat Exams 01/19/25 17:45 Taken CBC W DIFF Stat Lab 01/19/25 18:00 Completed CMP Stat Lab 01/19/25 18:00 Completed HCG QUALITATIVE, SERUM Stat Lab 01/19/25 18:00 Completed LIPASE Stat Lab 01/19/25 18:00 Completed Lactic Acid Stat Lab 01/19/25 17:45 Completed Lactic Acid Stat Lab 01/19/25 19:54 Received PROTIME WITH INR Stat Lab 01/19/25 18:00 Completed PTT Stat Lab 01/19/25 18:00 Completed TROPONIN Q4H Lab 01/19/25 18:00 Completed TROPONIN Q4H Lab 01/19/25 21:45 Ordered TROPONIN Q4H Lab 01/20/25 01:45 Ordered UA W/RFX UR CULTURE Stat Lab 01/19/25 17:45 Completed Transfer Order Routine Transfer 01/19/25 Ordered Medication Summary Generic Name Dose Route Start Last Admin Trade Name Freq PRN Reason Stop Dose Admin Magnesium Sulfate/Dextrose 100 mls @ 100 mls/hr 01/19/25 19:00 01/19/25 19:50 Magnesium 1 Gm / 100 Ml D5w IV 01/19/25 20:59 100 mls/hr Q1H DANE Administration Potassium Chloride 20 meq in 100 mls @ 50 mls/hr 01/19/25 19:00 01/19/25 20:06 Potassium Chloride 20 Meq In Water 100ml IV 01/19/25 22:59 50 mls/hr Q2H DANE Administration Lactated Ringer's 1,000 mls @ 150 mls/hr 01/19/25 19:58 01/19/25 20:05 Lactated Ringers IV 01/20/25 02:37 150 mls/hr .Q6H40M STA Administration Discontinued Medications Generic Name Dose Route Start Last Admin Trade Name Freq PRN Reason Stop Dose Admin Hydromorphone HCl 0.5 mg 01/19/25 20:39 Hydromorphone 1 Mg/1ml Inj IV 01/19/25 20:40 STAT ONE Sodium Chloride 1,000 mls @ 999 mls/hr 01/19/25 17:45 01/19/25 18:56 Sodium Chloride 0.9% 1000 Ml IV 01/19/25 18:45 Infused .Q1H1M STA Infusion Sodium Chloride Confirm 01/19/25 17:53 Sodium Chloride 0.9% 1000 Ml Administered 01/19/25 17:54 Dose 1,000 mls @ ud .ROUTE .STK-MED ONE Lactated Ringer's Confirm 01/19/25 20:02 Lactated Ringers Administered 01/19/25 20:03 Dose 1,000 mls @ ud IV .STK-MED ONE Metoclopramide HCl 10 mg 01/19/25 18:54 01/19/25 19:09 Metoclopramide Hcl 10 Mg/2 Ml Vial IV 01/19/25 18:55 10 mg STAT ONE Administration Metoclopramide HCl Confirm 01/19/25 18:57 Metoclopramide Hcl 10 Mg/2 Ml Vial Administered 01/19/25 18:58 Dose 10 mg .ROUTE .STK-MED ONE Morphine Sulfate 4 mg 01/19/25 18:54 01/19/25 19:07 Morphine Sulfate 4 Mg/Ml Injection IV 01/19/25 18:55 4 mg STAT ONE Administration Morphine Sulfate Confirm 01/19/25 18:57 Morphine Sulfate 4 Mg/Ml Injection Administered 01/19/25 18:58 Dose 4 mg .ROUTE .STK-MED ONE Ondansetron HCl 4 mg 01/19/25 17:45 01/19/25 17:54 Ondansetron Hcl 4 Mg/2 Ml Vial IV 01/19/25 17:46 4 mg STAT ONE Administration Ondansetron HCl Confirm 01/19/25 17:53 Ondansetron Hcl 4 Mg/2 Ml Vial Administered 01/19/25 17:54 Dose 4 mg .ROUTE .STK-MED ONE Lab/Rad Data: Laboratory Result Diagrams 01/19/25 18:00 01/19/25 18:00 Laboratory Results 01/19/25 01/19/25 01/19/25 Range/Units 18:00 18:00 18:00 WBC (3.98-10.04) x10^3/uL RBC (3.93-5.22) x10^6/uL Hgb (11.2-15.7) g/dL Hct (34.1-44.9) % MCV (79.4-94.8) fL MCH (25.6-32.2) pg MCHC (32.2-35.5) g/dL RDW (11.7-14.4) % Plt Count (182-369) x10^3/uL MPV (9.4-12.3) fL Gran % (34.0-71.1) % Immature Gran % (Auto) (0.001-0.429) % Nucleat RBC Rel Count (0.00-0.2) % Eos # (Auto) (0.04-0.36) x10^3/uL Immature Gran # (Auto) (0.001-0.031) x10^3u/L Absolute Lymphs (auto) (1.18-3.74) x10^3/uL Absolute Monos (auto) (0.24-0.86) x10^3/uL Absolute Nucleated RBC (0.00-0.012) x10^3u/L Lymphocytes % (19.3-51.7) % Monocytes % (4.7-12.5) % Eosinophils % (0.7-5.8) % Basophils % (0.1-1.2) % Absolute Granulocytes (1.56-6.13) x10^3/uL Basophils # (0.01-0.08) x10^3/uL PT 13.9 H (9.4-12.5) SECONDS INR 1.30 (0.8-3.0) APTT 33.0 (25.1-36.5) SECONDS Sodium (135-145) mmol/L Potassium (3.5-5.1) mmol/L Chloride (98-107) mmol/L Carbon Dioxide (22-30) mmol/L Anion Gap (5-15) MEQ/L BUN (7-17) mg/dL Creatinine (0.52-1.04) mg/dL Estimated GFR ML/MIN Glucose (74-106) mg/dL Lactic Acid (0.4-2.0) Calcium (8.4-10.2) mg/dL Total Bilirubin (0.2-1.3) mg/dL AST (14-36) U/L ALT (0-35) U/L Alkaline Phosphatase (38-126) U/L Ammonia 21 (9-30) umol/L Troponin I (0.000-0.033) ng/mL Serum Total Protein (6.3-8.2) g/dL Albumin (3.5-5.0) g/dL Lipase (23-300) U/L Serum HCG, Qual NEGATIVE (NEGATIVE) Urine Color (Yellow) Urine Appearance (Clear) Urine pH (4.6-8.0) Ur Specific [place] (1.005-1.030) Urine Protein (Negative) Urine Glucose (UA) (Negative) mg/dL Urine Ketones (Negative) Urine Blood (Negative) Urine Nitrite (Negative) Urine Bilirubin (Negative) Urine Urobilinogen (0.2) mg/dL Ur Leukocyte Esterase (Negative) U Hyaline Cast (Auto) (0-2) /LPF Urine Microscopic RBC (0-5) /HPF Urine Microscopic WBC (0-5) /HPF Ur Epithelial Cells (None Seen) /HPF Urine Bacteria (None Seen) /HPF Urine Culture Reflexed (NO) 01/19/25 01/19/25 01/19/25 Range/Units 18:00 18:00 17:45 WBC 14.7 H (3.98-10.04) x10^3/uL RBC 4.12 (3.93-5.22) x10^6/uL Hgb 13.0 (11.2-15.7) g/dL Hct 39.0 (34.1-44.9) % MCV 94.7 (79.4-94.8) fL MCH 31.6 (25.6-32.2) pg MCHC 33.3 (32.2-35.5) g/dL RDW 16.1 H (11.7-14.4) % Plt Count 640 H (182-369) x10^3/uL MPV 9.9 (9.4-12.3) fL Gran % 69.9 (34.0-71.1) % Immature Gran % (Auto) 0.4 (0.001-0.429) % Nucleat RBC Rel Count 0.0 (0.00-0.2) % Eos # (Auto) 0.07 (0.04-0.36) x10^3/uL Immature Gran # (Auto) 0.06 H (0.001-0.031) x10^3u/L Absolute Lymphs (auto) 3.17 (1.18-3.74) x10^3/uL Absolute Monos (auto) 0.98 H (0.24-0.86) x10^3/uL Absolute Nucleated RBC 0.00 (0.00-0.012) x10^3u/L Lymphocytes % 21.5 (19.3-51.7) % Monocytes % 6.7 (4.7-12.5) % Eosinophils % 0.5 L (0.7-5.8) % Basophils % 1.0 (0.1-1.2) % Absolute Granulocytes 10.30 H (1.56-6.13) x10^3/uL Basophils # 0.15 H (0.01-0.08) x10^3/uL PT (9.4-12.5) SECONDS INR (0.8-3.0) APTT (25.1-36.5) SECONDS Sodium 135 (135-145) mmol/L Potassium 2.9 L* (3.5-5.1) mmol/L Chloride 86 L (98-107) mmol/L Carbon Dioxide 31 H (22-30) mmol/L Anion Gap 20.5 H (5-15) MEQ/L BUN 3 L (7-17) mg/dL Creatinine 0.40 L (0.52-1.04) mg/dL Estimated GFR 132.3 ML/MIN Glucose 157 H (74-106) mg/dL Lactic Acid 7.3 H (0.4-2.0) Calcium 8.8 (8.4-10.2) mg/dL Total Bilirubin 5.50 H (0.2-1.3) mg/dL AST 445 H (14-36) U/L ALT 104 H (0-35) U/L Alkaline Phosphatase 446 H (38-126) U/L Ammonia (9-30) umol/L Troponin I < 0.012 (0.000-0.033) ng/mL Serum Total Protein 6.5 (6.3-8.2) g/dL Albumin 3.5 (3.5-5.0) g/dL Lipase 35 (23-300) U/L Serum HCG, Qual (NEGATIVE) Urine Color (Yellow) Urine Appearance (Clear) Urine pH (4.6-8.0) Ur Specific [place] (1.005-1.030) Urine Protein (Negative) Urine Glucose (UA) (Negative) mg/dL Urine Ketones (Negative) Urine Blood (Negative) Urine Nitrite (Negative) Urine Bilirubin (Negative) Urine Urobilinogen (0.2) mg/dL Ur Leukocyte Esterase (Negative) U Hyaline Cast (Auto) (0-2) /LPF Urine Microscopic RBC (0-5) /HPF Urine Microscopic WBC (0-5) /HPF Ur Epithelial Cells (None Seen) /HPF Urine Bacteria (None Seen) /HPF Urine Culture Reflexed (NO) 01/19/25 Range/Units 17:45 WBC (3.98-10.04) x10^3/uL RBC (3.93-5.22) x10^6/uL Hgb (11.2-15.7) g/dL Hct (34.1-44.9) % MCV (79.4-94.8) fL MCH (25.6-32.2) pg MCHC (32.2-35.5) g/dL RDW (11.7-14.4) % Plt Count (182-369) x10^3/uL MPV (9.4-12.3) fL Gran % (34.0-71.1) % Immature Gran % (Auto) (0.001-0.429) % Nucleat RBC Rel Count (0.00-0.2) % Eos # (Auto) (0.04-0.36) x10^3/uL Immature Gran # (Auto) (0.001-0.031) x10^3u/L Absolute Lymphs (auto) (1.18-3.74) x10^3/uL Absolute Monos (auto) (0.24-0.86) x10^3/uL Absolute Nucleated RBC (0.00-0.012) x10^3u/L Lymphocytes % (19.3-51.7) % Monocytes % (4.7-12.5) % Eosinophils % (0.7-5.8) % Basophils % (0.1-1.2) % Absolute Granulocytes (1.56-6.13) x10^3/uL Basophils # (0.01-0.08) x10^3/uL PT (9.4-12.5) SECONDS INR (0.8-3.0) APTT (25.1-36.5) SECONDS Sodium (135-145) mmol/L Potassium (3.5-5.1) mmol/L Chloride (98-107) mmol/L Carbon Dioxide (22-30) mmol/L Anion Gap (5-15) MEQ/L BUN (7-17) mg/dL Creatinine (0.52-1.04) mg/dL Estimated GFR ML/MIN Glucose (74-106) mg/dL Lactic Acid (0.4-2.0) Calcium (8.4-10.2) mg/dL Total Bilirubin (0.2-1.3) mg/dL AST (14-36) U/L ALT (0-35) U/L Alkaline Phosphatase (38-126) U/L Ammonia (9-30) umol/L Troponin I (0.000-0.033) ng/mL Serum Total Protein (6.3-8.2) g/dL Albumin (3.5-5.0) g/dL Lipase (23-300) U/L Serum HCG, Qual (NEGATIVE) Urine Color Dark Yellow A (Yellow) Urine Appearance Cloudy A (Clear) Urine pH 5.5 (4.6-8.0) Ur Specific [place] 1.025 (1.005-1.030) Urine Protein 30 (Negative) Urine Glucose (UA) Negative (Negative) mg/dL Urine Ketones 15 A (Negative) Urine Blood Negative (Negative) Urine Nitrite Negative (Negative) Urine Bilirubin Large A (Negative) Urine Urobilinogen 2.0 A (0.2) mg/dL Ur Leukocyte Esterase Trace A (Negative) U Hyaline Cast (Auto) 6-10 A (0-2) /LPF Urine Microscopic RBC 3-5 (0-5) /HPF Urine Microscopic WBC 0-2 (0-5) /HPF Ur Epithelial Cells Moderate A (None Seen) /HPF Urine Bacteria None Seen (None Seen) /HPF Urine Culture Reflexed NO (NO) - Progress Progress: improved Progress Note: I spoke to hospitalist who will accept patient pending CT scan report. Dr. Pino requested an additional liter of IV fluids as well 01/19/25 19:31 CT scan resulted. Fatty liver observed otherwise no acute findings. Patient accepted. Admit orders placed. 34-year-old female with history of alcohol use disorder with cirrhosis presents to our emergency department for evaluation of nausea vomiting. Patient complains of vague right upper quadrant pain. No trauma no fever. Evaluation reveals jaundice and scleral icterus. Labs confirm hyperbilirubinemia. Additionally patient has a significant lactic acidosis of 7.3. Patient's potassium low at 2.9. Patient received magnesium and IV potassium replacement. Patient unable to tolerate p.o. Patient last drink was this morning. Patient has a mild transaminitis as well. We contacted [facility] as patient's GI physician is on staff. However [facility] declined transfer as they do not have any beds available. Patient advised that beds are not available and she prefers to stay here at our hospital for further evaluation and treatment. IV fluids administered. Symptoms are improving. Patient voices no other complaints or concerns at this time. IV fluids administered. Repeat lactic acid pending Portions of this note were created with voice recognition technology. There may be grammatical, spelling, punctuation or sound alike errors Complexity of problem addressed is moderate acute complicated. No critical care time. Complexity of data reviewed and analyzed extensive. Test ordered test reviewed results analyzed and correlated clinically with history and physical exam. Management discussed with hospitalist who accepts admission to observation. We also consulted with GI services at [facility]. Risk of complication and or risk of morbidity/mortality of patient management is high. Patient requires hospitalization for further evaluation and treatment. Vital stable. Time spent admit patient approximately 20 minutes. Plan of care established for shared decision making. No social determinants of health present to impede follow-up. Portions of this note were created with voice recognition technology. There may be grammatical, spelling, punctuation or sound alike errors 01/19/25 20:41 Counseled pt/family regarding: lab results, diagnosis, rad results - Departure Departure Disposition: Observation Clinical Impression: Alcoholic cirrhosis, Jaundice, Scleral icterus, Leukocytosis, Thrombocytosis, Hypokalemia, High anion gap metabolic acidosis, Lactic acidosis, Hyperbilirubinemia, Transaminitis, Nausea and vomiting, Tachycardia Condition: Stable Critical Care Time: No Referrals: DOCTOR,NO FAMILY [Primary Care Provider, UNKNOWN] - Follow up/PCP as directed
[2025-01-19] MEDS: MORPHINE SULFATE 4 MG INJ IV ONE (19:07)
[2025-01-19] MEDS: Reglan 10 MG/2 ML IV ONE (19:09)
[2025-01-19 19:15] LABS: Appearance Cloudy (Clear); Bacteria None Seen /HPF (None Seen); Bilirubin Large (Negative); Blood Negative (Negative); Epithelial Cells Moderate /HPF (None Seen); Glucose, Urine Negative (Negative); Ketones 15 (Negative); Leukocyte Esterase Trace (Negative); Nitrite Negative (Negative); Ph 5.5 (4.6-8.0); Protein,Urine Dip 30 (Negative); Specific Gravity 1.025 (1.005-1.030); WBC 0-2 /HPF (0-5)
[2025-01-19] MEDS: Magnesium 1 Gm / 100 Ml D5W*** 100 ML IV SCH (19:15)
[2025-01-19] MEDS ORDERED: Lactated Ringers 1,000 ML IV ONE (20:02)
[2025-01-19] MEDS: Lactated Ringers 1,000 ML IV STA (20:05)
[2025-01-19] MEDS: POTASSIUM CHLORIDE 20 mEq IN WATER 100ML 20 MEQ/100 ML BAG IV SCH (20:06)
[2025-01-19] MEDS ORDERED: Hydromorphone 1 mg/ml Injection ONE (20:49)
[2025-01-19] MEDS: Hydromorphone 1 mg/ml Injection IV ONE (20:50)
[2025-01-19] MEDS ORDERED: POTASSIUM CHLORIDE 20 mEq IN WATER 100ML 100 ML IV ONE (22:25)
[2025-01-19] MEDS: PROTONIX 40 MG IV IV SCH (23:07)
[2025-01-19] MEDS: THIAMINE 200 MG/2 ML IV ONE (23:07)
[2025-01-19] MEDS: MORPHINE SULFATE 2 MG INJ IV PRN (23:07)
[2025-01-19] MEDS: Sodium Chloride 0.9% 500 ML 500 ML IV ONE (23:08)
[2025-01-19] MEDS: Ativan 2 MG/1 ML VIAL IV PRN (23:37)
[2025-01-19 23:38] LABS: ANION GAP 15.4 MEQ/L (5-15); Creatinine 1 0.35 mg/dL (0.52-1.04); EST GLOMERULAR FILTRATION RATE 136.6 ML/MIN
[2025-01-20] MEDS: Dextrose 5%-Lr IV Solution 1000 ML 1,000 ML IV SCH (00:19)
[2025-01-20 00:23] LABS: Calcium 7.4 mg/dL (8.4-10.2); Potassium 2.9 mmol/L (3.5-5.1)
--- NOTE | 2025-01-20 00:46 | PCM.HP ---
History of Present Illness - Chief Complaint Chief Complaint: Nausea, vomiting, hypokalemia. liver cirrhosis Date: 01/19/25 History of Present Illness: 34 years old very pleasant lady with past medical history significant for hypertension, chronic migraine, recent diagnosis of alcoholic liver disease, recurrent pancreatitis, who came to ER complaining of nausea vomiting with inability to tolerate anything p.o. for last 5 days. She denied having any fever did complain of some right upper quadrant pain she also reported having diarrhea. She is actively drinking alcohol and reported having a history of DTs in the past. She uses narcotics at home for chronic pancreatitis. She told me that she followed up with GI for alcoholic liver disease as well. In the ER blood pressure was 119/89 patient was having a heart rate 135 she was afebrile as far as lab workup concerned white cell count 14.7 hemoglobin 13 platelets 640. Sodium 135 potassium 2.9 chloride 86 bicarb 31 BUN 30 creatinine 0.40. Lactate was running around 7 anion gap was 19 urine was not convincing for infection although did show trace leukocyte esterase but no bacteria no WBCs. Patient got CT abdomen pelvis that remained completely unremarkable except fatty liver. No ascites noted. She admitted for supportive management and further care ER doctor contacted [facility] as patient GI physician is on staff however [facility] they do not have any bed available she patient is hiram low admitted at [facility] for now - Review of Systems All Other Systems: Reviewed and Negative (14 systems reviewed and marked ve except mentioned in TELIDA) Medications & Allergies Home Medications: Home Medication List Fluconazole [Diflucan] 200 mg PO DAILY 01/19/25 [History Confirmed 01/19/25] Furosemide 40 mg [Lasix 40 MG] 40 mg PO DAILY 01/19/25 [History Confirmed 01/19/25] PANTOPRAZOLE 40 mg Tablet [Protonix 40MG Tablet] 40 mg PO BID 01/19/25 [History Confirmed 01/19/25] Propranolol HCl [Inderal ] 20 mg PO BID 01/19/25 [History Confirmed 01/19/25] Spironolactone 25 mg [Aldactone 25 MG] 25 mg PO DAILY 01/19/25 [History Confirmed 01/19/25] Allergies/Adverse Reactions: Allergies Allergy/AdvReac Type Severity Reaction Status Date / Time No Known Drug Allergies Allergy Verified 01/19/25 17:39 - Past Medical History Past Medical History: Yes Neurological History: Migraines ENT History: No Pertinent History Cardiac History: Hypertension Respiratory History: No Pertinent History Endocrine Medical History: Liver Disease Musculoskelatal History: No Pertinent History GI Medical History: Gallbladder Disease, Pancreatitis History: No Pertinent History Pyscho-Social History: Anxiety, Bipolar, Depression, Other Reproductive Disorders: No Pertinent History Comment: multiple personality disorder, alcoholism - Female History Are you now?: No - Past Surgical History Past Surgical History: Yes Neuro Surgical History: No Pertinent History Cardiac History: No Pertinent History Respiratory Surgery: No Pertinent History GI Surgical History: Cholecystectomy Genitourinary Surgical Hx: No Pertinent History Musculskeletal Surgical Hx: No Pertinent History Female Surgical History: No Pertinent History Significant Family History: no pertinent family hx (No family history pertaining to this admission reported), hypertension (father) - Social History Smoking Status: Current every day smoker How long have you smoked: 3 yrs Exposure to second hand smoke: Yes Alcohol: Daily Drug Use: none - Social Determinants of Health Will the patient participate in the screening: Yes Do you worry about a steady place to live?: No Do you have any problems with any of the following?: No known problems In the past 12 months,have you had to go without utilities?: No Have you or anyone in your house had to go without enough: No Transportation Issues: No Has anyone in your support network made you feel unsafe?: No Does the patient want assistance with any of the above?: No - Physical Exam Vital Signs: Vital Signs - 24 hr Temp Pulse Resp BP BP Pulse Ox 01/19/25 22:54 145 H 18 97 01/19/25 22:03 97.9 F 150 H 18 131/32 92 L 01/19/25 21:10 135 H 16 122/85 93 L 01/19/25 21:03 134 H 11 L 94 L 01/19/25 20:48 98 01/19/25 20:30 146 H 22 121/84 95 01/19/25 20:14 146 H 17 124/81 95 01/19/25 20:10 147 H 16 124/81 97 01/19/25 20:03 95 01/19/25 19:30 121/84 96 01/19/25 19:00 132 H 20 129/99 97 01/19/25 18:50 149 H 18 98 01/19/25 18:48 129 H 19 90 L 01/19/25 18:33 127 H 18 98 01/19/25 18:00 131 H 17 122/86 96 01/19/25 17:43 98.3 F 135 H 12 119/89 94 L Additional Findings: 01/20/25 00:45 HEENT Young aged, average built in no distress NECK Supple,no thyromegaly, CVS S1+S2 + 0, no murmers RESP Bilateral equal air entry without Crepts/Wheezes heard GIT Soft non tender,non distended Skin, No rah, no Bruises LEGS No Edema PSYCH Normal,mood, judgement and insight NEURO AOX3, no focal deficit Results - Labs Lab/Micro Results: Lab Results-Last 24 Hours 01/19/25 01/19/25 01/19/25 Range/Units 17:45 17:45 18:00 WBC 14.7 H (3.98-10.04) x10^3/uL RBC 4.12 (3.93-5.22) x10^6/uL Hgb 13.0 (11.2-15.7) g/dL Hct 39.0 (34.1-44.9) % MCV 94.7 (79.4-94.8) fL MCH 31.6 (25.6-32.2) pg MCHC 33.3 (32.2-35.5) g/dL RDW 16.1 H (11.7-14.4) % Plt Count 640 H (182-369) x10^3/uL MPV 9.9 (9.4-12.3) fL Gran % 69.9 (34.0-71.1) % Immature Gran % (Auto) 0.4 (0.001-0.429) % Nucleat RBC Rel Count 0.0 (0.00-0.2) % Eos # (Auto) 0.07 (0.04-0.36) x10^3/uL Immature Gran # (Auto) 0.06 H (0.001-0.031) x10^3u/L Absolute Lymphs (auto) 3.17 (1.18-3.74) x10^3/uL Absolute Monos (auto) 0.98 H (0.24-0.86) x10^3/uL Absolute Nucleated RBC 0.00 (0.00-0.012) x10^3u/L Lymphocytes % 21.5 (19.3-51.7) % Monocytes % 6.7 (4.7-12.5) % Eosinophils % 0.5 L (0.7-5.8) % Basophils % 1.0 (0.1-1.2) % Absolute Granulocytes 10.30 H (1.56-6.13) x10^3/uL Basophils # 0.15 H (0.01-0.08) x10^3/uL PT (9.4-12.5) SECONDS INR (0.8-3.0) APTT (25.1-36.5) SECONDS Sodium (135-145) mmol/L Potassium (3.5-5.1) mmol/L Chloride (98-107) mmol/L Carbon Dioxide (22-30) mmol/L Anion Gap (5-15) MEQ/L BUN (7-17) mg/dL Creatinine (0.52-1.04) mg/dL Estimated GFR ML/MIN Glucose (74-106) mg/dL Lactic Acid 7.3 H (0.4-2.0) Calcium (8.4-10.2) mg/dL Magnesium (1.6-2.3) mg/dL Total Bilirubin (0.2-1.3) mg/dL AST (14-36) U/L ALT (0-35) U/L Alkaline Phosphatase (38-126) U/L Ammonia (9-30) umol/L Troponin I (0.000-0.033) ng/mL Serum Total Protein (6.3-8.2) g/dL Albumin (3.5-5.0) g/dL Lipase (23-300) U/L Serum HCG, Qual (NEGATIVE) Urine Color Dark Yellow A (Yellow) Urine Appearance Cloudy A (Clear) Urine pH 5.5 (4.6-8.0) Ur Specific [place] 1.025 (1.005-1.030) Urine Protein 30 (Negative) Urine Glucose (UA) Negative (Negative) mg/dL Urine Ketones 15 A (Negative) Urine Blood Negative (Negative) Urine Nitrite Negative (Negative) Urine Bilirubin Large A (Negative) Urine Urobilinogen 2.0 A (0.2) mg/dL Ur Leukocyte Esterase Trace A (Negative) U Hyaline Cast (Auto) 6-10 A (0-2) /LPF Urine Microscopic RBC 3-5 (0-5) /HPF Urine Microscopic WBC 0-2 (0-5) /HPF Ur Epithelial Cells Moderate A (None Seen) /HPF Urine Bacteria None Seen (None Seen) /HPF Urine Culture Reflexed NO (NO) 01/19/25 01/19/25 01/19/25 Range/Units 18:00 18:00 18:00 WBC (3.98-10.04) x10^3/uL RBC (3.93-5.22) x10^6/uL Hgb (11.2-15.7) g/dL Hct (34.1-44.9) % MCV (79.4-94.8) fL MCH (25.6-32.2) pg MCHC (32.2-35.5) g/dL RDW (11.7-14.4) % Plt Count (182-369) x10^3/uL MPV (9.4-12.3) fL Gran % (34.0-71.1) % Immature Gran % (Auto) (0.001-0.429) % Nucleat RBC Rel Count (0.00-0.2) % Eos # (Auto) (0.04-0.36) x10^3/uL Immature Gran # (Auto) (0.001-0.031) x10^3u/L Absolute Lymphs (auto) (1.18-3.74) x10^3/uL Absolute Monos (auto) (0.24-0.86) x10^3/uL Absolute Nucleated RBC (0.00-0.012) x10^3u/L Lymphocytes % (19.3-51.7) % Monocytes % (4.7-12.5) % Eosinophils % (0.7-5.8) % Basophils % (0.1-1.2) % Absolute Granulocytes (1.56-6.13) x10^3/uL Basophils # (0.01-0.08) x10^3/uL PT (9.4-12.5) SECONDS INR (0.8-3.0) APTT (25.1-36.5) SECONDS Sodium 135 (135-145) mmol/L Potassium 2.9 L* (3.5-5.1) mmol/L Chloride 86 L (98-107) mmol/L Carbon Dioxide 31 H (22-30) mmol/L Anion Gap 20.5 H (5-15) MEQ/L BUN 3 L (7-17) mg/dL Creatinine 0.40 L (0.52-1.04) mg/dL Estimated GFR 132.3 ML/MIN Glucose 157 H (74-106) mg/dL Lactic Acid (0.4-2.0) Calcium 8.8 (8.4-10.2) mg/dL Magnesium (1.6-2.3) mg/dL Total Bilirubin 5.50 H (0.2-1.3) mg/dL AST 445 H (14-36) U/L ALT 104 H (0-35) U/L Alkaline Phosphatase 446 H (38-126) U/L Ammonia 21 (9-30) umol/L Troponin I < 0.012 (0.000-0.033) ng/mL Serum Total Protein 6.5 (6.3-8.2) g/dL Albumin 3.5 (3.5-5.0) g/dL Lipase 35 (23-300) U/L Serum HCG, Qual NEGATIVE (NEGATIVE) Urine Color (Yellow) Urine Appearance (Clear) Urine pH (4.6-8.0) Ur Specific [place] (1.005-1.030) Urine Protein (Negative) Urine Glucose (UA) (Negative) mg/dL Urine Ketones (Negative) Urine Blood (Negative) Urine Nitrite (Negative) Urine Bilirubin (Negative) Urine Urobilinogen (0.2) mg/dL Ur Leukocyte Esterase (Negative) U Hyaline Cast (Auto) (0-2) /LPF Urine Microscopic RBC (0-5) /HPF Urine Microscopic WBC (0-5) /HPF Ur Epithelial Cells (None Seen) /HPF Urine Bacteria (None Seen) /HPF Urine Culture Reflexed (NO) 01/19/25 01/19/25 01/19/25 Range/Units 18:00 19:54 21:02 WBC (3.98-10.04) x10^3/uL RBC (3.93-5.22) x10^6/uL Hgb (11.2-15.7) g/dL Hct (34.1-44.9) % MCV (79.4-94.8) fL MCH (25.6-32.2) pg MCHC (32.2-35.5) g/dL RDW (11.7-14.4) % Plt Count (182-369) x10^3/uL MPV (9.4-12.3) fL Gran % (34.0-71.1) % Immature Gran % (Auto) (0.001-0.429) % Nucleat RBC Rel Count (0.00-0.2) % Eos # (Auto) (0.04-0.36) x10^3/uL Immature Gran # (Auto) (0.001-0.031) x10^3u/L Absolute Lymphs (auto) (1.18-3.74) x10^3/uL Absolute Monos (auto) (0.24-0.86) x10^3/uL Absolute Nucleated RBC (0.00-0.012) x10^3u/L Lymphocytes % (19.3-51.7) % Monocytes % (4.7-12.5) % Eosinophils % (0.7-5.8) % Basophils % (0.1-1.2) % Absolute Granulocytes (1.56-6.13) x10^3/uL Basophils # (0.01-0.08) x10^3/uL PT 13.9 H (9.4-12.5) SECONDS INR 1.30 (0.8-3.0) APTT 33.0 (25.1-36.5) SECONDS Sodium (135-145) mmol/L Potassium (3.5-5.1) mmol/L Chloride (98-107) mmol/L Carbon Dioxide (22-30) mmol/L Anion Gap (5-15) MEQ/L BUN (7-17) mg/dL Creatinine (0.52-1.04) mg/dL Estimated GFR ML/MIN Glucose (74-106) mg/dL Lactic Acid 6.1 H (0.4-2.0) Calcium (8.4-10.2) mg/dL Magnesium (1.6-2.3) mg/dL Total Bilirubin (0.2-1.3) mg/dL AST (14-36) U/L ALT (0-35) U/L Alkaline Phosphatase (38-126) U/L Ammonia (9-30) umol/L Troponin I < 0.012 (0.000-0.033) ng/mL Serum Total Protein (6.3-8.2) g/dL Albumin (3.5-5.0) g/dL Lipase (23-300) U/L Serum HCG, Qual (NEGATIVE) Urine Color (Yellow) Urine Appearance (Clear) Urine pH (4.6-8.0) Ur Specific [place] (1.005-1.030) Urine Protein (Negative) Urine Glucose (UA) (Negative) mg/dL Urine Ketones (Negative) Urine Blood (Negative) Urine Nitrite (Negative) Urine Bilirubin (Negative) Urine Urobilinogen (0.2) mg/dL Ur Leukocyte Esterase (Negative) U Hyaline Cast (Auto) (0-2) /LPF Urine Microscopic RBC (0-5) /HPF Urine Microscopic WBC (0-5) /HPF Ur Epithelial Cells (None Seen) /HPF Urine Bacteria (None Seen) /HPF Urine Culture Reflexed (NO) 01/19/25 01/20/25 Range/Units 23:24 00:24 WBC (3.98-10.04) x10^3/uL RBC (3.93-5.22) x10^6/uL Hgb (11.2-15.7) g/dL Hct (34.1-44.9) % MCV (79.4-94.8) fL MCH (25.6-32.2) pg MCHC (32.2-35.5) g/dL RDW (11.7-14.4) % Plt Count (182-369) x10^3/uL MPV (9.4-12.3) fL Gran % (34.0-71.1) % Immature Gran % (Auto) (0.001-0.429) % Nucleat RBC Rel Count (0.00-0.2) % Eos # (Auto) (0.04-0.36) x10^3/uL Immature Gran # (Auto) (0.001-0.031) x10^3u/L Absolute Lymphs (auto) (1.18-3.74) x10^3/uL Absolute Monos (auto) (0.24-0.86) x10^3/uL Absolute Nucleated RBC (0.00-0.012) x10^3u/L Lymphocytes % (19.3-51.7) % Monocytes % (4.7-12.5) % Eosinophils % (0.7-5.8) % Basophils % (0.1-1.2) % Absolute Granulocytes (1.56-6.13) x10^3/uL Basophils # (0.01-0.08) x10^3/uL PT (9.4-12.5) SECONDS INR (0.8-3.0) APTT (25.1-36.5) SECONDS Sodium 133 L (135-145) mmol/L Potassium 2.9 L* (3.5-5.1) mmol/L Chloride 93 L (98-107) mmol/L Carbon Dioxide 28 (22-30) mmol/L Anion Gap 15.4 H (5-15) MEQ/L BUN 3 L (7-17) mg/dL Creatinine 0.35 L (0.52-1.04) mg/dL Estimated GFR 136.6 ML/MIN Glucose 126 H (74-106) mg/dL Lactic Acid (0.4-2.0) Calcium 7.4 L D (8.4-10.2) mg/dL Magnesium 2.2 (1.6-2.3) mg/dL Total Bilirubin (0.2-1.3) mg/dL AST (14-36) U/L ALT (0-35) U/L Alkaline Phosphatase (38-126) U/L Ammonia (9-30) umol/L Troponin I (0.000-0.033) ng/mL Serum Total Protein (6.3-8.2) g/dL Albumin (3.5-5.0) g/dL Lipase (23-300) U/L Serum HCG, Qual (NEGATIVE) Urine Color (Yellow) Urine Appearance (Clear) Urine pH (4.6-8.0) Ur Specific [place] (1.005-1.030) Urine Protein (Negative) Urine Glucose (UA) (Negative) mg/dL Urine Ketones (Negative) Urine Blood (Negative) Urine Nitrite (Negative) Urine Bilirubin (Negative) Urine Urobilinogen (0.2) mg/dL Ur Leukocyte Esterase (Negative) U Hyaline Cast (Auto) (0-2) /LPF Urine Microscopic RBC (0-5) /HPF Urine Microscopic WBC (0-5) /HPF Ur Epithelial Cells (None Seen) /HPF Urine Bacteria (None Seen) /HPF Urine Culture Reflexed (NO) - Radiology Impressions Radiology Exams & Impressions: Radiology Procedures Category Date Time Status ABDOMEN AND PELVIS W/0 CONTRAS [CT] Stat Exams 01/19/25 17:45 Taken - Other Procedures and Tests Respiratory Therapy 01/19/25 22:54 Respiratory Therapy Assessment DAILY 01/20/25 00:14 Smoking Cessation Education ONCE Assessment/Plan (1) Nausea & vomiting Current Visit: Yes Status: Acute Code(s): R11.2 - NAUSEA WITH VOMITING, UNSPECIFIED (2) Hypokalemia Current Visit: Yes Status: Acute Code(s): E87.6 - HYPOKALEMIA (3) High anion gap metabolic acidosis Current Visit: Yes Status: Acute Code(s): E87.29 - OTHER ACIDOSIS (4) Alcoholic cirrhosis Current Visit: Yes Status: Acute Code(s): K70.30 - ALCOHOLIC CIRRHOSIS OF LIVER WITHOUT ASCITES Telemedicine Encounter - Telemedicine Encounter Telemedicine Encounter: The entirety of this encounter was performed via Telemedicine"This visit was performed using real-time audio and video connection between my location and thepatients locationwith the assistance of a surrogateat the patients location. Written or verbal consent was obtained from the patient/guardian to perform this visit using[facility] technology. Any patient questions regarding the telemedicine interaction were answered. Intractable nausea vomiting LFTs due to alcoholic liver disease Lipase unremarkable CT abdomen pelvis unremarkable except fatty liver disease Continue supportive therapy with IV fluids Continue Protonix Continue antiemetics Will keep patient on clear liquid diet Alcoholic liver disease/alcoholic hepatitis Patient recently got a diagnosis of alcoholic liver disease 3 weeks ago She followed up with GI as outpatient Encourage high-protein and low sodium diet CT unremarkable for ascites No lactulose as patient is already having diarrhea Keep holding her lasix/Aldactone for now. Diarrhea Will check for C. difficile Continue hydration Aggressively Anion gap metabolic acidosis Due to diarrhea/nausea vomiting Continue hydration Keep following up labs closely Hypokalemia. Severe Potassium 2.9 Replace 6 aggressively and recheck Chronic pancreatitis Lipase unremarkable CT not concerning with acute flare Chronic migraine Currently stable DVT prophylaxis SCD/Lovenox CODE STATUS full Discharge planning pending clinical stability. I have reviewed patient lab vitals and imaging in detail all question and concerns were addressed
[2025-01-20] MEDS: POTASSIUM CHLORIDE 20 mEq IN WATER 100ML 20 MEQ/100 ML BAG IV SCH (01:29)
[2025-01-20] MEDS: Sodium Chloride 0.9% 1000 ML 1,000 ML IV ONE (01:29)
[2025-01-20 03:16] LABS: 027 TOX PROD PRESUMPTIVE NEGATIVE (NEGATIVE)
[2025-01-20 04:37] LABS: TOXIGENIC C. DIFF ORG POSITIVE (NEGATIVE)
[2025-01-20 05:39] LABS: Hematocrit 32.6 % (34.1-44.9); Hemoglobin 10.1 g/dL (11.2-15.7); Mean Cell Volume 100.3 fL (79.4-94.8); Mean Corpuscular Hemoglobin 31.1 pg (25.6-32.2); Platelet Count 416 x10^3/uL (182-369); Red Blood Count 3.25 x10^6/uL (3.93-5.22); Red Cell Distribution Width 16.4 % (11.7-14.4); White Blood Count 10.4 x10^3/uL (3.98-10.04)
[2025-01-20 06:01] LABS: ALBUMIN 2.6 g/dL (3.5-5.0); ANION GAP 16.1 MEQ/L (5-15); BILIRUBIN,TOTAL 4.9 mg/dL (0.2-1.3); Calcium 6.8 mg/dL (8.4-10.2); Creatinine 1 0.38 mg/dL (0.52-1.04); EST GLOMERULAR FILTRATION RATE 133.9 ML/MIN; Potassium 3.4 mmol/L (3.5-5.1); Total Protein 5.2 g/dL (6.3-8.2)
--- NOTE | 2025-01-20 08:38 | XRAY ---
Indication: Pain. Multiple contiguous axial images obtained through the abdomen and pelvis without contrast. Comparison: December 25, 2023 Lung bases remain clear. Heart not enlarged. Noncontrasted stomach and bowel loops nonobstructed. Again 26.6 cm fatty hepatomegaly and cholecystectomy. No free fluid/air. Remaining pancreas, spleen, adrenal glands, kidneys, ureters, bladder, uterus, and aorta are unremarkable for noncontrast exam. Impression: Again fatty hepatomegaly. Remaining CT chest without contrast exam is negative.
[2025-01-20] MEDS ORDERED: Klor Con ONE (10:03)
[2025-01-20] MEDS: Acidophilus TABLET PO SCH (10:08)
[2025-01-20] MEDS: ENOXAPARIN SODIUM SQ SCH (10:09)
[2025-01-20] MEDS: FOLATE 1 MG PO SCH (10:09)
[2025-01-20] MEDS: Klor Con PO ONE (10:09)
[2025-01-20] MEDS: Aldactone 25 MG PO SCH (10:09)
[2025-01-20] MEDS: Lasix 40 MG PO SCH (10:09)
[2025-01-20] MEDS: Inderal PO SCH (10:09)
[2025-01-20] MEDS: Tums EX 750 MG PO SCH (10:09)
[2025-01-20] MEDS: BENADRYL 25 MG CAPSULE PO ONE (10:09)
[2025-01-20] MEDS ORDERED: Narcan 0.4 MG/ML IV PRN (13:40)
--- NOTE | 2025-01-20 16:45 | XRAY ---
Indication: Elevated bilirubin. Right upper quadrant pain. Portal vein thrombosis. Cholecystectomy. Two-dimensional right upper quadrant abdominal sonogram performed. Comparison: December 18, 2023 Salad Counter Attendant notes limited exam due to overlying bowel gas and uncooperative patient. Again fatty hepatomegaly measuring 26 cm. No focal solid/cystic hepatic mass or ascites. Visualized main portal vein is 1.3 cm and unremarkable. Interval cholecystectomy. Common bile duct measures 4.2 mm. No intrahepatic biliary distention. Right kidney measures 11.6 x 3.4 x 4.7 cm and sonographically unremarkable. Impression: Limited sonogram. Fatty hepatomegaly and cholecystectomy. Remaining right upper quadrant sonogram is negative.
[2025-01-21] MEDS: Ativan 2 MG/1 ML VIAL IV ONE (03:01)
[2025-01-21 05:31] LABS: Hematocrit 34.1 % (34.1-44.9); Hemoglobin 10.7 g/dL (11.2-15.7); Mean Cell Volume 101.5 fL (79.4-94.8); Mean Corpuscular Hemoglobin 31.8 pg (25.6-32.2); Mean Corpuscular Hgb Concent. 31.4 g/dL (32.2-35.5); Mean Platelet Volume 10.1 fL (9.4-12.3); Platelet Count 329 x10^3/uL (182-369); Red Blood Count 3.36 x10^6/uL (3.93-5.22); Red Cell Distribution Width 16.1 % (11.7-14.4); White Blood Count 9.5 x10^3/uL (3.98-10.04)
[2025-01-21 06:46] LABS: ALBUMIN 2.5 g/dL (3.5-5.0); ALKALINE PHOSPHATASE 365 U/L (38-126); ANION GAP 13.3 MEQ/L (5-15); CHLORIDE 100 mmol/L (98-107); Calcium 8.2 mg/dL (8.4-10.2); Carbon Dioxide 24 mmol/L (22-30); Creatinine 1 0.43 mg/dL (0.52-1.04); Glucose 113 mg/dL (74-106); Potassium 4.1 mmol/L (3.5-5.1); SGOT/AST 291 U/L (14-36); SGPT/ALT 76 U/L (0-35); SODIUM 133 mmol/L (135-145); Total Protein 5.2 g/dL (6.3-8.2)
[2025-01-21 06:55] LABS: BLOOD UREA NITROGEN < 2 mg/dL (7-17)
--- NOTE | 2025-01-21 10:28 | PCM.NOTE ---
Date and Time: 01/21/25 1016 Subjective Assessment: 01/21/25 The patient is a 34-year-old pleasant female with a medical history significant for hypertension, chronic migraines, a recent diagnosis of alcoholic liver disease, and recurrent pancreatitis. She presented to the emergency department on January 21, 2024, with complaints of nausea, vomiting, and an inability to tolerate oral intake for the past five days. She denied having any fever but did report right upper quadrant abdominal pain and episodes of diarrhea. The patient admitted to ongoing alcohol use and has a history of delirium tremens. She also uses narcotics at home for chronic pancreatitis. She reported having recently followed up with her soil conservation technician regarding her liver disease. On arrival, her vital signs showed a blood pressure of 119/89 mmHg and a heart rate of 135 bpm; she was afebrile. Initial labs revealed a WBC count of 14.7, hemoglobin 13, platelets 640, sodium 135, potassium 2.9, chloride 86, bicarbonate 31, BUN 30, and creatinine 0.40. Her lactate was elevated at 7.0, with an anion gap of 19. Urinalysis was not strongly suggestive of infection, showing only trace leukocyte esterase with no bacteria or white blood cells. A CT of the abdomen and pelvis was unremarkable aside from findings consistent with fatty liver; there was no evidence of ascites. She was admitted for supportive management and further evaluation. The emergency physician contacted [facility], where her GI physician, Dr. Kat, is on staff, but no beds were available, so she remained admitted at [facility]. A repeat lactate level today decreased to 2.7 following administration of a 1.5- liter fluid bolus per guidelines, and it will be rechecked later this evening. Her heart rate has improved but remains mildly tachycardic. An abdominal ultrasound completed yesterday was negative. Her bilirubin has increased to 5.3 today, and she continues to complain of right upper quadrant pain. However, she is now tolerating oral intake without issue. Her anion gap has normalized, and liver enzymes are improving. She currently denies any additional concerns. - Review of Systems Constitutional: No Fever, No Chills Eyes: No Symptoms Ears, Nose, & Throat: No Symptoms Respiratory: No Cough, No Short Of Breath Cardiac: No Chest Pain, No Edema, No Syncope Abdominal/Gastrointestinal: Abdominal Pain (RUQ), Diarrhea, No Nausea, No Vomiting Genitourinary Symptoms: No Dysuria Musculoskeletal: No Back Pain, No Neck Pain Skin: No Rash Neurological: No Dizziness, No Focal Weakness, No Sensory Changes Psychological: No Symptoms Endocrine: No Symptoms Hematologic/Lymphatic: No Symptoms Immunological/Allergic: No Symptoms Objective Exam General Appearance: no apparent distress, alert Neurologic Exam: alert, oriented x 3, cooperative, normal mood/affect, nml cerebellar function, sensation nml, No motor deficits Skin Exam: normal color, warm, dry Eye Exam: PERRL, EOMI, eyes nml inspection Ears, Nose, Throat Exam: normal ENT inspection, pharynx normal, moist mucous membranes Neck Exam: normal inspection, non-tender, supple, full range of motion Respiratory Exam: normal breath sounds, lungs clear, No respiratory distress Cardiovascular Exam: regular rate/rhythm, normal heart sounds Gastrointestinal/Abdomen Exam: soft, tenderness (RUQ), distention, No mass Extremity Exam: normal inspection, normal range of motion Back Exam: normal inspection, normal range of motion, No CVA tenderness, No vertebral tenderness Pelvic Exam: deferred Rectal Exam: deferred Objective Data Vital Signs: Vital Signs - 24 hr Temp Pulse Resp BP Pulse Ox 01/21/25 07:46 98.0 F 111 H 16 126/86 98 01/21/25 07:40 97 01/21/25 04:00 98.4 F 98 H 16 116/84 97 01/21/25 03:01 111 H 22 01/21/25 01:00 100 H 01/21/25 00:00 98.2 F 119 H 17 119/82 98 01/20/25 20:00 98.4 F 104 H 17 119/86 97 01/20/25 19:33 96 01/20/25 15:56 98.0 F 107 H 16 125/82 94 L 01/20/25 12:00 97.7 F 98 H 16 126/96 95 Pain Assessment - Last Documented Pain Intensity 10 Pain Scale Used 0-10 Pain Scale Intake and Output: Intake & Output 01/18/25 01/19/25 01/20/25 01/21/25 11:59 11:59 11:59 11:59 Intake Total 4004 3064 Output Total 100 Balance 3904 3064 Weight 54.1 kg 54.5 kg Lab Results: Lab Results-Last 24 Hours 01/21/25 01/21/25 01/21/25 Range/Units 05:12 05:12 07:37 WBC 9.5 (3.98-10.04) x10^3/uL RBC 3.36 L (3.93-5.22) x10^6/uL Hgb 10.7 L (11.2-15.7) g/dL Hct 34.1 (34.1-44.9) % MCV 101.5 H (79.4-94.8) fL MCH 31.8 (25.6-32.2) pg MCHC 31.4 L (32.2-35.5) g/dL RDW 16.1 H (11.7-14.4) % Plt Count 329 (182-369) x10^3/uL MPV 10.1 (9.4-12.3) fL Sodium 133 L (135-145) mmol/L Potassium 4.1 (3.5-5.1) mmol/L Chloride 100 (98-107) mmol/L Carbon Dioxide 24 (22-30) mmol/L Anion Gap 13.3 (5-15) MEQ/L BUN < 2 L (7-17) mg/dL Creatinine 0.43 L (0.52-1.04) mg/dL Estimated GFR 130.0 ML/MIN Glucose 113 H (74-106) mg/dL Lactic Acid 2.7 H (0.4-2.0) Calcium 8.2 L D (8.4-10.2) mg/dL Total Bilirubin 5.30 H (0.2-1.3) mg/dL AST 291 H (14-36) U/L ALT 76 H (0-35) U/L Alkaline Phosphatase 365 H (38-126) U/L Serum Total Protein 5.2 L (6.3-8.2) g/dL Albumin 2.5 L (3.5-5.0) g/dL Radiology Exams: Radiology Procedures Category Date Time Status ABDOMEN AND PELVIS W/0 CONTRAS [CT] Stat Exams 01/19/25 17:45 Completed US ABDOMEN LIMITED [ABDOMINAL-LIMITED] [US] Routine Exams 01/20/25 09:48 Completed Medications: Medications Generic Name Dose Route Start Last Admin Trade Name Freq PRN Reason Stop Dose Admin Calcium Carbonate/Glycine 750 mg 01/20/25 10:00 01/21/25 09:11 Calcium Carbonate 750 Mg 750 Mg Tab.Chew PO 02/19/25 09:59 750 mg BID DANE Administration Enoxaparin Sodium 40 mg 01/20/25 10:00 01/21/25 09:13 Enoxaparin Sodium 40 Mg/0.4 Ml Syringe SQ 02/19/25 09:59 40 mg DAILY DANE Administration Folic Acid 1 mg 01/20/25 10:00 01/21/25 09:11 Folic Acid 1 Mg Tablet PO 02/19/25 09:59 1 mg DAILY DANE Administration Furosemide 40 mg 01/20/25 10:00 01/20/25 10:09 Furosemide 40 Mg Tablet PO 02/19/25 09:59 40 mg DAILY DANE Administration Lactobacillus Acidophilus 1 tab 01/20/25 10:00 01/21/25 09:11 Lactobacillus Acidophilus 1 Tab Tablet PO 02/19/25 09:59 1 tab DAILY DANE Administration Morphine Sulfate 2 mg 01/19/25 22:42 01/21/25 07:45 Morphine Sulfate 2 Mg/Ml Inj IV 01/23/25 22:41 2 mg Q4H PRN PRN Administration SEVERE PAIN Naloxone HCl 0.4 mg 01/20/25 13:40 Naloxone Hcl 0.4 Mg/Ml Ml IV 02/19/25 13:39 PRN PRN RESPIRATORY DEPRESSION Pantoprazole Sodium 40 mg 01/19/25 22:45 01/21/25 01:05 Pantoprazole 40 Mg Vial IV 02/18/25 22:44 40 mg Q24H DANE Administration Propranolol HCl 20 mg 01/20/25 10:00 01/21/25 09:11 Propranolol Hcl 20 Mg Tablet PO 02/19/25 09:59 20 mg BID DANE Administration Spironolactone 25 mg 01/20/25 10:00 01/21/25 09:11 Spironolactone 25 Mg Tablet PO 02/19/25 09:59 25 mg DAILY DANE Administration Discontinued Medications Generic Name Dose Route Start Last Admin Trade Name Freq PRN Reason Stop Dose Admin Diphenhydramine HCl 25 mg 01/20/25 09:46 01/20/25 10:09 Diphenhydramine Hcl 25 Mg Capsule PO 01/20/25 09:47 25 mg STAT ONE Administration Hydromorphone HCl 0.5 mg 01/19/25 20:39 01/19/25 20:50 Hydromorphone 1 Mg/1ml Inj IV 01/19/25 20:40 0.5 mg STAT ONE Administration Hydromorphone HCl Confirm 01/19/25 20:49 Hydromorphone 1 Mg/1ml Inj Administered 01/19/25 20:50 Dose 1 mg .ROUTE .STK-MED ONE Sodium Chloride 1,000 mls @ 999 mls/hr 01/19/25 17:45 01/19/25 18:56 Sodium Chloride 0.9% 1000 Ml IV 01/19/25 18:45 Infused .Q1H1M STA Infusion Sodium Chloride Confirm 01/19/25 17:53 Sodium Chloride 0.9% 1000 Ml Administered 01/19/25 17:54 Dose 1,000 mls @ ud .ROUTE .STK-MED ONE Magnesium Sulfate/Dextrose 100 mls @ 100 mls/hr 01/19/25 19:00 01/19/25 20:20 Magnesium 1 Gm / 100 Ml D5w IV 01/19/25 20:59 Infused Q1H DANE Infusion Potassium Chloride 20 meq in 100 mls @ 50 mls/hr 01/19/25 19:00 01/19/25 22:38 Potassium Chloride 20 Meq In Water 100ml IV 01/19/25 22:59 50 mls/hr Q2H DANE Administration Lactated Ringer's 1,000 mls @ 150 mls/hr 01/19/25 19:58 01/19/25 20:05 Lactated Ringers IV 01/20/25 02:37 150 mls/hr .Q6H40M STA Administration Lactated Ringer's Confirm 01/19/25 20:02 Lactated Ringers Administered 01/19/25 20:03 Dose 1,000 mls @ ud IV .STK-MED ONE Magnesium Sulfate/Dextrose Confirm 01/19/25 18:57 Magnesium 1 Gm / 100 Ml D5w Administered 01/19/25 18:58 Dose 100 mls @ ud IV .STK-MED ONE Magnesium Sulfate/Dextrose Confirm 01/19/25 19:49 Magnesium 1 Gm / 100 Ml D5w Administered 01/19/25 19:50 Dose 100 mls @ ud IV .STK-MED ONE Potassium Chloride Confirm 01/19/25 22:25 Potassium Chloride 20 Meq In Water 100ml Administered 01/19/25 22:26 Dose 100 mls @ ud IV .STK-MED ONE Dextrose/Lactated Ringer's 1,000 mls @ 100 mls/hr 01/19/25 23:00 01/20/25 10:08 Dextrose 5%-Lr Iv Solution 1000 Ml IV 02/18/25 22:59 100 mls/hr .Q10H DANE Administration Sodium Chloride 500 mls @ 500 mls/hr 01/19/25 22:52 01/19/25 23:08 Sodium Chloride 0.9% 500 Ml IV 01/19/25 23:51 500 mls/hr .Q1H ONE Administration Potassium Chloride 20 meq in 100 mls @ 50 mls/hr 01/20/25 01:00 01/20/25 03:5 3 Potassium Chloride 20 Meq In Water 100ml IV 01/20/25 04:59 50 mls/hr Q2H DANE Administration Sodium Chloride 1,000 mls @ 999 mls/hr 01/20/25 01:15 01/20/25 01:29 Sodium Chloride 0.9% 1000 Ml IV 01/20/25 02:15 999 mls/hr .Q1H1M ONE Administration Sodium Chloride 1,000 mls @ 999 mls/hr 01/21/25 08:55 01/21/25 09:14 Sodium Chloride 0.45% 1000 Ml IV 01/21/25 09:55 999 mls/hr .Q1H1M ONE Administration Sodium Chloride 500 mls @ 500 mls/hr 01/21/25 08:57 Sodium Chloride 0.9% 500 Ml IV 01/21/25 09:56 .Q1H ONE Lorazepam 1 mg 01/19/25 22:54 01/20/25 13:19 Lorazepam 2 Mg/1 Ml 2 Mg Vial IV 02/18/25 22:53 1 mg Q2H PRN PRN Administration ANXIETY/AGITATION Lorazepam 1 mg 01/21/25 01:45 01/21/25 03:01 Lorazepam 2 Mg/1 Ml 2 Mg Vial IV 01/21/25 01:46 1 mg 1XONLY ONE Administration Metoclopramide HCl 10 mg 01/19/25 18:54 01/19/25 19:09 Metoclopramide Hcl 10 Mg/2 Ml Vial IV 01/19/25 18:55 10 mg STAT ONE Administration Metoclopramide HCl Confirm 01/19/25 18:57 Metoclopramide Hcl 10 Mg/2 Ml Vial Administered 01/19/25 18:58 Dose 10 mg .ROUTE .STK-MED ONE Morphine Sulfate 4 mg 01/19/25 18:54 01/19/25 19:07 Morphine Sulfate 4 Mg/Ml Injection IV 01/19/25 18:55 4 mg STAT ONE Administration Morphine Sulfate Confirm 01/19/25 18:57 Morphine Sulfate 4 Mg/Ml Injection Administered 01/19/25 18:58 Dose 4 mg .ROUTE .STK-MED ONE Ondansetron HCl 4 mg 01/19/25 17:45 01/19/25 17:54 Ondansetron Hcl 4 Mg/2 Ml Vial IV 01/19/25 17:46 4 mg STAT ONE Administration Ondansetron HCl Confirm 01/19/25 17:53 Ondansetron Hcl 4 Mg/2 Ml Vial Administered 01/19/25 17:54 Dose 4 mg .ROUTE .STK-MED ONE Potassium Chloride 20 meq 01/20/25 07:47 01/20/25 10:09 Potassium Chloride Tab 10 Meq Tab PO 01/20/25 07:48 20 meq STAT ONE Administration Potassium Chloride Confirm 01/20/25 10:03 Potassium Chloride Tab 10 Meq Tab Administered 01/20/25 10:04 Dose 20 meq .ROUTE .STK-MED ONE Thiamine HCl 100 mg 01/19/25 22:55 01/19/25 23:07 Thiamine Hcl 200 Mg/2 Ml Vial IV 01/19/25 22:56 100 mg STAT ONE Administration Multi-Disciplinary Progress Notes: Multi-Disciplinary Progress Notes 01/21/25 09:44 Case Management Note by Ana María Medellin S/W PATIENT. CONTINUES TO REFUSE ANY INPT [place] FOR ETOH. INFORMATION FOR TELEHEALTH SERVICE OPTIONS PROVIDED TO PATIENT. SHE DENIES ANY OTHER NEEDS AT TIME OF DC. PLANS TO RETURN HOME AT HER PLOF WITH AND SISTER. Initialized on 01/21/25 09:44 - END OF NOTE 01/20/25 11:22 Nutrition Note by Laina Arce PATIENT IS REQUESTING TO ADVANCE DIET AFTER ABDOMINAL ULTRASOUND. NOTIFIED Isela HARRISON NP AND RECEIVED ORDER FOR HOUSE REGULAR DIET AFTER ULTRASOUND HAS BEEN COMPLETED. Initialized on 01/20/25 11:22 - END OF NOTE Assessment/Plan (1) Abdominal pain Current Visit: Yes Status: Acute Assessment & Plan: - CBC. CMP reviewed - US abd.: Fatty hepatomegaly - Abd CT/ pelvis: Fatty hepatomegaly - IVF - Narcotic pain medication - Eating and drinking well Code(s): R10.9 - UNSPECIFIED ABDOMINAL PAIN (2) Diarrhea Current Visit: Yes Status: Acute Assessment & Plan: - C-diff negative - Probiotics - Imodium Code(s): R19.7 - DIARRHEA, UNSPECIFIED (3) Elevated lactic acid level Current Visit: Yes Status: Acute Assessment & Plan: - LA today 2.7 - 1.5L NS fluid bolus ordered - Will recheck LA this afternoon - 2:2 N/V/D- see plans - tele - CBC, CMP reviewed Code(s): R79.89 - OTHER SPECIFIED ABNORMAL FINDINGS OF BLOOD CHEMISTRY (4) Alcoholic cirrhosis Current Visit: Yes Status: Chronic Assessment & Plan: - F/U OP with Dr. Kat- GI - AST 291, ALT 76- improving Code(s): K70.30 - ALCOHOLIC CIRRHOSIS OF LIVER WITHOUT ASCITES (5) Hyperbilirubinemia Current Visit: Yes Status: Acute Assessment & Plan: - Bili- 5.30- increased today- trend - IVF - US and CT reviewed Code(s): E80.6 - OTHER DISORDERS OF BILIRUBIN METABOLISM (6) Alcohol dependence Current Visit: No Status: Acute Assessment & Plan: - Advised cessation - Pt states she has not been drinking like she used to but did have a shot on Easter - Will monitor for withdrawl sxs - Tele Code(s): F10.20 - ALCOHOL DEPENDENCE, UNCOMPLICATED (7) History of chronic pancreatitis Current Visit: No Status: Chronic Assessment & Plan: - Lipase normal - Labs reviewed Code(s): Z87.19 - PERSONAL HISTORY OF OTHER DISEASES OF THE DIGESTIVE SYSTEM (8) Anxiety and depression Current Visit: No Status: Chronic Assessment & Plan: - Ativan stopped as she was becoming confused and had resp depression in combination with narcotic pain meds - Will need OP f/u Code(s): F41.9 - ANXIETY DISORDER, UNSPECIFIED; F32.A - DEPRESSION, UNSPECIFIED (9) HTN (hypertension) Current Visit: No Status: Chronic Assessment & Plan: - BP stable - Not currently taking BP meds Code(s): I10 - ESSENTIAL (PRIMARY) HYPERTENSION (10) High anion gap metabolic acidosis Current Visit: Yes Status: Resolved Assessment & Plan: - Resolved - IVF Code(s): E87.29 - OTHER ACIDOSIS (11) Dehydration Current Visit: No Status: Resolved Assessment & Plan: - Resolved - Labs reviewed Code(s): E86.0 - DEHYDRATION (12) Nausea & vomiting Current Visit: Yes Status: Resolved Assessment & Plan: - Resolved - Antiemetic Code(s): R11.2 - NAUSEA WITH VOMITING, UNSPECIFIED (13) Hypokalemia Current Visit: Yes Status: Resolved Assessment & Plan: - Resolved VTE: heparin PPI: Protonix Next of KIN: D/C plan: 1-2 days Code(s): E87.6 - HYPOKALEMIA
[2025-01-21] MEDS: Sodium Chloride 0.9% 500 ML 500 ML IV ONE (11:14)
[2025-01-21] MEDS: Sodium Chloride 0.9% 1000 ML 1,000 ML IV SCH (12:18)
[2025-01-21] MEDS ORDERED: HEPARIN 5000 UNITS/0.5 ML (HIGH RISK MED) SQ SCH (22:00)
[2025-01-22 05:52] LABS: Hematocrit 32.6 % (34.1-44.9); Hemoglobin 10.5 g/dL (11.2-15.7); Mean Cell Volume 99.4 fL (79.4-94.8); Mean Corpuscular Hgb Concent. 32.2 g/dL (32.2-35.5); Mean Platelet Volume 9.9 fL (9.4-12.3); Platelet Count 292 x10^3/uL (182-369); Red Blood Count 3.28 x10^6/uL (3.93-5.22); Red Cell Distribution Width 15.7 % (11.7-14.4); White Blood Count 7.6 x10^3/uL (3.98-10.04)
[2025-01-22 06:03] LABS: ALBUMIN 2.6 g/dL (3.5-5.0); ALKALINE PHOSPHATASE 376 U/L (38-126); ANION GAP 12.9 MEQ/L (5-15); CHLORIDE 102 mmol/L (98-107); Calcium 7.8 mg/dL (8.4-10.2); Carbon Dioxide 23 mmol/L (22-30); Creatinine 1 0.36 mg/dL (0.52-1.04); EST GLOMERULAR FILTRATION RATE 135.7 ML/MIN; Glucose 119 mg/dL (74-106); Potassium 3.9 mmol/L (3.5-5.1); SGOT/AST 239 U/L (14-36); SGPT/ALT 67 U/L (0-35); SODIUM 134 mmol/L (135-145); Total Protein 5.2 g/dL (6.3-8.2)
[2025-01-22 06:11] LABS: BLOOD UREA NITROGEN < 2 mg/dL (7-17)
[2025-01-22] MEDS: Sodium Chloride 0.9% 500 ML 500 ML IV ONE ×2 (08:21→18:50)
[2025-01-22] MEDS: Sodium Chloride 0.9% 1000 ML 1,000 ML IV STA ×2 (08:22→18:05)
[2025-01-22] MEDS ORDERED: NORCO 5/325 MG PO PRN (09:18)
--- NOTE | 2025-01-22 09:28 | PCM.NOTE ---
Date and Time: 01/22/25 0919 Subjective Assessment: 01/21/25 The patient is a 34-year-old pleasant female with a medical history significant for hypertension, chronic migraines, a recent diagnosis of alcoholic liver disease, and recurrent pancreatitis. She presented to the emergency department on January 21, 2024, with complaints of nausea, vomiting, and an inability to tolerate oral intake for the past five days. She denied having any fever but did report right upper quadrant abdominal pain and episodes of diarrhea. The patient admitted to ongoing alcohol use and has a history of delirium tremens. She also uses narcotics at home for chronic pancreatitis. She reported having recently followed up with her talent scout regarding her liver disease. On arrival, her vital signs showed a blood pressure of 119/89 mmHg and a heart rate of 135 bpm; she was afebrile. Initial labs revealed a WBC count of 14.7, hemoglobin 13, platelets 640, sodium 135, potassium 2.9, chloride 86, bicarbonate 31, BUN 30, and creatinine 0.40. Her lactate was elevated at 7.0, with an anion gap of 19. Urinalysis was not strongly suggestive of infection, showing only trace leukocyte esterase with no bacteria or white blood cells. A CT of the abdomen and pelvis was unremarkable aside from findings consistent with fatty liver; there was no evidence of ascites. She was admitted for supportive management and further evaluation. The emergency physician contacted [facility], where her GI physician, Dr. Kat, is on staff, but no beds were available, so she remained admitted at [place]. A repeat lactate level today decreased to 2.7 following administration of a 1.5- liter fluid bolus per guidelines, and it will be rechecked later this evening. Her heart rate has improved but remains mildly tachycardic. An abdominal ultrasound completed yesterday was negative. Her bilirubin has increased to 5.3 today, and she continues to complain of right upper quadrant pain. However, she is now tolerating oral intake without issue. Her anion gap has normalized, and liver enzymes are improving. She currently denies any additional concerns. 01/22/25 The patient is resting in bed and reports that she continues to feel unwell overall, though she is now tolerating oral intake and maintaining adequate hydration. Due to her improved ability to eat and drink, morphine has been discontinued. [place] has been initiated on a QID PRN basis for ongoing right upper quadrant pain. Her bilirubin and liver function tests have shown improvement today, though they remain elevated. Lactic acid remains elevated at 3.6; a 1.5-liter fluid bolus has been ordered, with plans to recheck levels later this afternoon. Her heart rate is trending down and showing signs of improvement. Intravenous fluids are being continued. The patient denies chest pain, shortness of breath, nausea, or vomiting at this time. - Review of Systems Constitutional: No Fever, No Chills Eyes: No Symptoms Ears, Nose, & Throat: No Symptoms Respiratory: No Cough, No Short Of Breath Cardiac: No Chest Pain, No Edema, No Syncope Abdominal/Gastrointestinal: Abdominal Pain (RUQ), No Nausea, No Vomiting, No Diarrhea Genitourinary Symptoms: No Dysuria Musculoskeletal: No Back Pain, No Neck Pain Skin: No Rash Neurological: No Dizziness, No Focal Weakness, No Sensory Changes Psychological: No Symptoms Endocrine: No Symptoms Hematologic/Lymphatic: No Symptoms Immunological/Allergic: No Symptoms Objective Exam General Appearance: no apparent distress, alert, thin Neurologic Exam: alert, oriented x 3, cooperative, normal mood/affect, nml cerebellar function, sensation nml, No motor deficits Skin Exam: normal color, warm, dry Eye Exam: PERRL, EOMI, eyes nml inspection Ears, Nose, Throat Exam: normal ENT inspection, pharynx normal, moist mucous membranes Neck Exam: normal inspection, non-tender, supple, full range of motion Respiratory Exam: normal breath sounds, lungs clear, No respiratory distress Cardiovascular Exam: regular rate/rhythm, normal heart sounds Gastrointestinal/Abdomen Exam: soft, tenderness (RUQ), No mass Extremity Exam: normal inspection, normal range of motion Back Exam: normal inspection, normal range of motion, No CVA tenderness, No vertebral tenderness Pelvic Exam: deferred Rectal Exam: deferred Objective Data Vital Signs: Vital Signs - 24 hr Temp Pulse Resp BP Pulse Ox 01/22/25 07:37 97.7 F 91 H 22 127/90 96 01/22/25 06:33 94 L 01/22/25 03:49 98.5 F 101 H 18 131/95 97 01/22/25 01:00 101 H 01/21/25 23:29 97.7 F 98 H 16 116/80 96 01/21/25 19:58 97.5 F 91 H 16 103/69 97 01/21/25 16:00 98.2 F 108 H 16 11682 96 01/21/25 11:35 98.2 F 108 H 16 82 96 Pain Assessment - Last Documented Pain Intensity 8 Pain Scale Used 0-10 Pain Scale Intake and Output: Intake & Output 01/19/25 01/20/25 01/21/25 01/22/25 11:59 11:59 11:59 11:59 Intake Total 4004 3064 5922 Output Total 100 Balance 3904 3064 5922 Weight 54.1 kg 54.5 kg Lab Results: Lab Results-Last 24 Hours 01/21/25 01/22/25 01/22/25 Range/Units 15:00 05:45 05:45 WBC 7.6 (3.98-10.04) x10^3/uL RBC 3.28 L (3.93-5.22) x10^6/uL Hgb 10.5 L (11.2-15.7) g/dL Hct 32.6 L (34.1-44.9) % MCV 99.4 H (79.4-94.8) fL MCH 32.0 (25.6-32.2) pg MCHC 32.2 (32.2-35.5) g/dL RDW 15.7 H (11.7-14.4) % Plt Count 292 (182-369) x10^3/uL MPV 9.9 (9.4-12.3) fL Sodium 134 L (135-145) mmol/L Potassium 3.9 (3.5-5.1) mmol/L Chloride 102 (98-107) mmol/L Carbon Dioxide 23 (22-30) mmol/L Anion Gap 12.9 (5-15) MEQ/L BUN < 2 L (7-17) mg/dL Creatinine 0.36 L (0.52-1.04) mg/dL Estimated GFR 135.7 ML/MIN Glucose 119 H (74-106) mg/dL Lactic Acid 3.2 H (0.4-2.0) Calcium 7.8 L (8.4-10.2) mg/dL Total Bilirubin 4.60 H (0.2-1.3) mg/dL AST 239 H (14-36) U/L ALT 67 H (0-35) U/L Alkaline Phosphatase 376 H (38-126) U/L Serum Total Protein 5.2 L (6.3-8.2) g/dL Albumin 2.6 L (3.5-5.0) g/dL 01/22/25 Range/Units 05:45 WBC (3.98-10.04) x10^3/uL RBC (3.93-5.22) x10^6/uL Hgb (11.2-15.7) g/dL Hct (34.1-44.9) % MCV (79.4-94.8) fL MCH (25.6-32.2) pg MCHC (32.2-35.5) g/dL RDW (11.7-14.4) % Plt Count (182-369) x10^3/uL MPV (9.4-12.3) fL Sodium (135-145) mmol/L Potassium (3.5-5.1) mmol/L Chloride (98-107) mmol/L Carbon Dioxide (22-30) mmol/L Anion Gap (5-15) MEQ/L BUN (7-17) mg/dL Creatinine (0.52-1.04) mg/dL Estimated GFR ML/MIN Glucose (74-106) mg/dL Lactic Acid 3.6 H (0.4-2.0) Calcium (8.4-10.2) mg/dL Total Bilirubin (0.2-1.3) mg/dL AST (14-36) U/L ALT (0-35) U/L Alkaline Phosphatase (38-126) U/L Serum Total Protein (6.3-8.2) g/dL Albumin (3.5-5.0) g/dL Radiology Exams: Radiology Procedures Category Date Time Status US ABDOMEN LIMITED [ABDOMINAL-LIMITED] [US] Routine Exams 01/20/25 09:48 Completed Medications: Medications Generic Name Dose Route Start Last Admin Trade Name Freq PRN Reason Stop Dose Admin Hydrocodone Bitart/Acetaminophen 1 tab 01/22/25 09:18 Hydrocodone/Apap 5/325 1 Tab Tablet PO 01/27/25 09:17 QID PRN PRN PAIN Calcium Carbonate/Glycine 750 mg 01/20/25 10:00 01/22/25 09:08 Calcium Carbonate 750 Mg 750 Mg Tab.Chew PO 02/19/25 09:59 750 mg BID DANE Administration Enoxaparin Sodium 40 mg 01/20/25 10:00 01/22/25 09:08 Enoxaparin Sodium 40 Mg/0.4 Ml Syringe SQ 02/19/25 09:59 40 mg DAILY DANE Administration Folic Acid 1 mg 01/20/25 10:00 01/22/25 09:08 Folic Acid 1 Mg Tablet PO 02/19/25 09:59 1 mg DAILY DANE Administration Furosemide 40 mg 01/20/25 10:00 01/20/25 10:09 Furosemide 40 Mg Tablet PO 02/19/25 09:59 40 mg DAILY DANE Administration Sodium Chloride 1,000 mls @ 75 mls/hr 01/21/25 12:15 01/22/25 03:13 Sodium Chloride 0.9% 1000 Ml IV 02/20/25 12:14 75 mls/hr .[id number] DANE Administration Lactobacillus Acidophilus 1 tab 01/20/25 10:00 01/22/25 09:08 Lactobacillus Acidophilus 1 Tab Tablet PO 02/19/25 09:59 1 tab DAILY DANE Administration Loperamide HCl 2 mg 01/21/25 10:32 Loperamide Hcl 2 Mg Capsule PO 02/20/25 10:31 PRN PRN DIARRHEA Naloxone HCl 0.4 mg 01/20/25 13:40 Naloxone Hcl 0.4 Mg/Ml Ml IV 02/19/25 13:39 PRN PRN RESPIRATORY DEPRESSION Pantoprazole Sodium 40 mg 01/19/25 22:45 01/21/25 22:13 Pantoprazole 40 Mg Vial IV 02/18/25 22:44 40 mg Q24H DANE Administration Propranolol HCl 20 mg 01/20/25 10:00 01/22/25 09:15 Propranolol Hcl 20 Mg Tablet PO 02/19/25 09:59 20 mg BID DANE Administration Spironolactone 25 mg 01/20/25 10:00 01/22/25 09:15 Spironolactone 25 Mg Tablet PO 02/19/25 09:59 25 mg DAILY DANE Administration Discontinued Medications Generic Name Dose Route Start Last Admin Trade Name Freq PRN Reason Stop Dose Admin Diphenhydramine HCl 25 mg 01/20/25 09:46 01/20/25 10:09 Diphenhydramine Hcl 25 Mg Capsule PO 01/20/25 09:47 25 mg STAT ONE Administration Heparin Sodium (Beef Lung) 5,000 unit 01/21/25 22:00 Heparin 5000 Units/0.5 Ml 5,000 Unit/0.5 Ml Syr SQ 02/20/25 21:59 BID DANE Hydromorphone HCl 0.5 mg 01/19/25 20:39 01/19/25 20:50 Hydromorphone 1 Mg/1ml Inj IV 01/19/25 20:40 0.5 mg STAT ONE Administration Hydromorphone HCl Confirm 01/19/25 20:49 Hydromorphone 1 Mg/1ml Inj Administered 01/19/25 20:50 Dose 1 mg .ROUTE .STK-MED ONE Sodium Chloride 1,000 mls @ 999 mls/hr 01/19/25 17:45 01/19/25 18:56 Sodium Chloride 0.9% 1000 Ml IV 01/19/25 18:45 Infused .Q1H1M STA Infusion Sodium Chloride Confirm 01/19/25 17:53 Sodium Chloride 0.9% 1000 Ml Administered 01/19/25 17:54 Dose 1,000 mls @ ud .ROUTE .STK-MED ONE Magnesium Sulfate/Dextrose 100 mls @ 100 mls/hr 01/19/25 19:00 01/19/25 20:20 Magnesium 1 Gm / 100 Ml D5w IV 01/19/25 20:59 Infused Q1H DANE Infusion Potassium Chloride 20 meq in 100 mls @ 50 mls/hr 01/19/25 19:00 01/19/25 22:38 Potassium Chloride 20 Meq In Water 100ml IV 01/19/25 22:59 50 mls/hr Q2H DANE Administration Lactated Ringer's 1,000 mls @ 150 mls/hr 01/19/25 19:58 01/19/25 20:05 Lactated Ringers IV 01/20/25 02:37 150 mls/hr .[id number] STA Administration Lactated Ringer's Confirm 01/19/25 20:02 Lactated Ringers Administered 01/19/25 20:03 Dose 1,000 mls @ ud IV .STK-MED ONE Magnesium Sulfate/Dextrose Confirm 01/19/25 18:57 Magnesium 1 Gm / 100 Ml D5w Administered 01/19/25 18:58 Dose 100 mls @ ud IV .STK-MED ONE Magnesium Sulfate/Dextrose Confirm 01/19/25 19:49 Magnesium 1 Gm / 100 Ml D5w Administered 01/19/25 19:50 Dose 100 mls @ ud IV .STK-MED ONE Potassium Chloride Confirm 01/19/25 22:25 Potassium Chloride 20 Meq In Water 100ml Administered 01/19/25 22:26 Dose 100 mls @ ud IV .STK-MED ONE Dextrose/Lactated Ringer's 1,000 mls @ 100 mls/hr 01/19/25 23:00 01/21/25 23:19 Dextrose 5%-Lr Iv Solution 1000 Ml IV 02/18/25 22:59 Not Given .Q10H DANE Sodium Chloride 500 mls @ 500 mls/hr 01/19/25 22:52 01/19/25 23:08 Sodium Chloride 0.9% 500 Ml IV 01/19/25 23:51 500 mls/hr .Q1H ONE Administration Potassium Chloride 20 meq in 100 mls @ 50 mls/hr 01/20/25 01:00 01/20/25 03:53 Potassium Chloride 20 Meq In Water 100ml IV 01/20/25 04:59 50 mls/hr Q2H DANE Administration Sodium Chloride 1,000 mls @ 999 mls/hr 01/20/25 01:15 01/20/25 01:29 Sodium Chloride 0.9% 1000 Ml IV 01/20/25 02:15 999 mls/hr .Q1H1M ONE Administration Sodium Chloride 1,000 mls @ 999 mls/hr 01/21/25 08:55 01/21/25 09:14 Sodium Chloride 0.45% 1000 Ml IV 01/21/25 09:55 999 mls/hr .Q1H1M ONE Administration Sodium Chloride 500 mls @ 500 mls/hr 01/21/25 08:57 01/21/25 11:14 Sodium Chloride 0.9% 500 Ml IV 01/21/25 09:56 500 mls/hr .Q1H ONE Administration Sodium Chloride 500 mls @ 500 mls/hr 01/22/25 07:27 01/22/25 08:21 Sodium Chloride 0.9% 500 Ml IV 01/22/25 08:26 500 mls/hr .Q1H ONE Administration Sodium Chloride 1,000 mls @ 999 mls/hr 01/22/25 07:27 01/22/25 08:22 Sodium Chloride 0.9% 1000 Ml IV 01/22/25 08:27 999 mls/hr .Q1H1M STA Administration Lorazepam 1 mg 01/19/25 22:54 01/20/25 13:19 Lorazepam 2 Mg/1 Ml 2 Mg Vial IV 02/18/25 22:53 1 mg Q2H PRN PRN Administration ANXIETY/AGITATION Lorazepam 1 mg 01/21/25 01:45 01/21/25 03:01 Lorazepam 2 Mg/1 Ml 2 Mg Vial IV 01/21/25 01:46 1 mg 1XONLY ONE Administration Metoclopramide HCl 10 mg 01/19/25 18:54 01/19/25 19:09 Metoclopramide Hcl 10 Mg/2 Ml Vial IV 01/19/25 18:55 10 mg STAT ONE Administration Metoclopramide HCl Confirm 01/19/25 18:57 Metoclopramide Hcl 10 Mg/2 Ml Vial Administered 01/19/25 18:58 Dose 10 mg .ROUTE .STK-MED ONE Morphine Sulfate 4 mg 01/19/25 18:54 01/19/25 19:07 Morphine Sulfate 4 Mg/Ml Injection IV 01/19/25 18:55 4 mg STAT ONE Administration Morphine Sulfate Confirm 01/19/25 18:57 Morphine Sulfate 4 Mg/Ml Injection Administered 01/19/25 18:58 Dose 4 mg .ROUTE .STK-MED ONE Morphine Sulfate 2 mg 01/19/25 22:42 01/22/25 09:13 Morphine Sulfate 2 Mg/Ml Inj IV 01/23/25 22:41 2 mg Q4H PRN PRN Administration SEVERE PAIN Ondansetron HCl 4 mg 01/19/25 17:45 01/19/25 17:54 Ondansetron Hcl 4 Mg/2 Ml Vial IV 01/19/25 17:46 4 mg STAT ONE Administration Ondansetron HCl Confirm 01/19/25 17:53 Ondansetron Hcl 4 Mg/2 Ml Vial Administered 01/19/25 17:54 Dose 4 mg .ROUTE .STK-MED ONE Potassium Chloride 20 meq 01/20/25 07:47 01/20/25 10:09 Potassium Chloride Tab 10 Meq Tab PO 01/20/25 07:48 20 meq STAT ONE Administration Potassium Chloride Confirm 01/20/25 10:03 Potassium Chloride Tab 10 Meq Tab Administered 01/20/25 10:04 Dose 20 meq .ROUTE .STK-MED ONE Thiamine HCl 100 mg 01/19/25 22:55 01/19/25 23:07 Thiamine Hcl 200 Mg/2 Ml Vial IV 01/19/25 22:56 100 mg STAT ONE Administration Multi-Disciplinary Progress Notes: Multi-Disciplinary Progress Notes 01/21/25 09:44 Case Management Note by Ana María Medellin S/W PATIENT. CONTINUES TO REFUSE ANY INPT [place] FOR ETOH. INFORMATION FOR TELEHEALTH SERVICE OPTIONS PROVIDED TO PATIENT. SHE DENIES ANY OTHER NEEDS AT TIME OF DC. PLANS TO RETURN HOME AT HER PLOF WITH AND SISTER. Initialized on 01/21/25 09:44 - END OF NOTE Assessment/Plan (1) Abdominal pain Current Visit: Yes Status: Acute Code(s): R10.9 - UNSPECIFIED ABDOMINAL PAIN (2) Diarrhea Current Visit: Yes Status: Acute Code(s): R19.7 - DIARRHEA, UNSPECIFIED (3) Elevated lactic acid level Current Visit: Yes Status: Acute Code(s): R79.89 - OTHER SPECIFIED ABNORMAL FINDINGS OF BLOOD CHEMISTRY (4) Alcoholic cirrhosis Current Visit: Yes Status: Chronic Code(s): K70.30 - ALCOHOLIC CIRRHOSIS OF LIVER WITHOUT ASCITES (5) Hyperbilirubinemia Current Visit: Yes Status: Acute Code(s): E80.6 - OTHER DISORDERS OF BILIRUBIN METABOLISM (6) Alcohol dependence Current Visit: No Status: Acute Code(s): F10.20 - ALCOHOL DEPENDENCE, UNCOMPLICATED (7) History of chronic pancreatitis Current Visit: No Status: Chronic Code(s): Z87.19 - PERSONAL HISTORY OF OTHER DISEASES OF THE DIGESTIVE SYSTEM (8) Anxiety and depression Current Visit: No Status: Chronic Code(s): F41.9 - ANXIETY DISORDER, UNSPECIFIED; F32.A - DEPRESSION, UNSPECIFIED (9) HTN (hypertension) Current Visit: No Status: Chronic Code(s): I10 - ESSENTIAL (PRIMARY) HYPERTENSION (10) High anion gap metabolic acidosis Current Visit: Yes Status: Resolved Code(s): E87.29 - OTHER ACIDOSIS (11) Dehydration Current Visit: No Status: Resolved Code(s): E86.0 - DEHYDRATION (12) Nausea & vomiting Current Visit: Yes Status: Resolved Code(s): R11.2 - NAUSEA WITH VOMITING, UNSPECIFIED (13) Hypokalemia Current Visit: Yes Status: Resolved Assessment & Plan: (1) Abdominal pain Current Visit: Yes Status: Acute Assessment & Plan: - CBC. CMP reviewed - US abd.: Fatty hepatomegaly - Abd CT/ pelvis: Fatty hepatomegaly - IVF - Narcotic pain medication - Eating and drinking well 01/22 - Change narcotic IV pain meds to PO as pt tolerating PO intake well. - CBC, CMP reviewed - HR improving Code(s): R10.9 - UNSPECIFIED ABDOMINAL PAIN (2) Diarrhea Current Visit: Yes Status: Acute Assessment & Plan: - C-diff negative - Probiotics - Imodium Code(s): R19.7 - DIARRHEA, UNSPECIFIED (3) Elevated lactic acid level Current Visit: Yes Status: Acute Assessment & Plan: - LA today 2.7 - 1.5L NS fluid bolus ordered - Will recheck LA this afternoon - 2:2 N/V/D- see plans - tele - CBC, CMP reviewed 01/22 - LA 3.6- 1.5L fluid bolus ordered - recheck this afternoon Code(s): R79.89 - OTHER SPECIFIED ABNORMAL FINDINGS OF BLOOD CHEMISTRY (4) Alcoholic cirrhosis Current Visit: Yes Status: Chronic Assessment & Plan: - F/U OP with Dr. Kat- GI - AST 291, ALT 76- improving 01/22 - AST 239, ALT 67- improving - IVF Code(s): K70.30 - ALCOHOLIC CIRRHOSIS OF LIVER WITHOUT ASCITES (5) Hyperbilirubinemia Current Visit: Yes Status: Acute Assessment & Plan: - Bili- 5.30- increased today- trend - IVF - US and CT reviewed 01/22 - IVF - Bili 4.60- improving Code(s): E80.6 - OTHER DISORDERS OF BILIRUBIN METABOLISM (6) Alcohol dependence Current Visit: No Status: Acute Assessment & Plan: - Advised cessation - Pt states she has not been drinking like she used to but did have a shot on Easter - Will monitor for withdrawl sxs - Tele Code(s): F10.20 - ALCOHOL DEPENDENCE, UNCOMPLICATED (7) History of chronic pancreatitis Current Visit: No Status: Chronic Assessment & Plan: - Lipase normal - Labs reviewed Code(s): Z87.19 - PERSONAL HISTORY OF OTHER DISEASES OF THE DIGESTIVE SYSTEM (8) Anxiety and depression Current Visit: No Status: Chronic Assessment & Plan: - Ativan stopped as she was becoming confused and had resp depression in combination with narcotic pain meds - Will need OP f/u Code(s): F41.9 - ANXIETY DISORDER, UNSPECIFIED; F32.A - DEPRESSION, UNSPECIFIED (9) HTN (hypertension) Current Visit: No Status: Chronic Assessment & Plan: - BP stable - Not currently taking BP meds Code(s): I10 - ESSENTIAL (PRIMARY) HYPERTENSION (10) High anion gap metabolic acidosis Current Visit: Yes Status: Resolved Assessment & Plan: - Resolved - IVF Code(s): E87.29 - OTHER ACIDOSIS (11) Dehydration Current Visit: No Status: Resolved Assessment & Plan: - Resolved - Labs reviewed Code(s): E86.0 - DEHYDRATION (12) Nausea & vomiting Current Visit: Yes Status: Resolved Assessment & Plan: - Resolved - Antiemetic Code(s): R11.2 - NAUSEA WITH VOMITING, UNSPECIFIED (13) Hypokalemia Current Visit: Yes Status: Resolved Assessment & Plan: - Resolved Code(s): E87.6 - HYPOKALEMIA Code(s): E87.6 - HYPOKALEMIA (14) Hypocalcemia Current Visit: Yes Status: Acute Assessment & Plan: - Corrected Ca+ 8.5 today - Tums stopped VTE: heparin PPI: Protonix Next of KIN: D/C plan: 1-2 days Code(s): E83.51 - HYPOCALCEMIA
[2025-01-22 14:10] LABS: ALBUMIN 2.5 g/dL (3.5-5.0); BILIRUBIN,TOTAL 4.4 mg/dL (0.2-1.3); Direct Bilirubin 3.4 mg/dL (0.0-0.4); Total Protein 5.3 g/dL (6.3-8.2)
[2025-01-22] MEDS: NORCO 10-325 MG PO PRN (14:10)
[2025-01-22] MEDS: clonazePAM PO PRN (22:04)
[2025-01-23 09:30] LABS: Absolute Neutrophil Ct (ANC) 5.39 x10^3/uL (1.56-6.13); BASOPHIL % 0.9 % (0.1-1.2); Basophil (Absolute #) 0.07 x10^3/uL (0.01-0.08); Eosinophil % 1.9 % (0.7-5.8); Eosinophil (Absolute #) 0.15 x10^3/uL (0.04-0.36); Hematocrit 33.4 % (34.1-44.9); Hemoglobin 10.8 g/dL (11.2-15.7); IMMATURE GRAN # 0.05 x10^3u/L (0.001-0.031); IMMATURE GRAN % 0.6 % (0.001-0.429); Lymphocyte (Absolute #) 1.73 x10^3/uL (1.18-3.74); Lymphocytes % 21.4 % (19.3-51.7); Mean Cell Volume 97.9 fL (79.4-94.8); Mean Corpuscular Hemoglobin 31.7 pg (25.6-32.2); Mean Corpuscular Hgb Concent. 32.3 g/dL (32.2-35.5); Mean Platelet Volume 9.5 fL (9.4-12.3); Monocyte (Absolute #) 0.68 x10^3/uL (0.24-0.86); Monocytes % 8.4 % (4.7-12.5); Neutrophil % 66.8 % (34.0-71.1); Platelet Count 304 x10^3/uL (182-369); Red Blood Count 3.41 x10^6/uL (3.93-5.22); Red Cell Distribution Width 15.8 % (11.7-14.4); White Blood Count 8.1 x10^3/uL (3.98-10.04)
--- NOTE | 2025-01-23 09:40 | PCM.NOTE ---
Date and Time: 01/23/25 0939 Subjective Assessment: 01/21/25 The patient is a 34-year-old pleasant female with a medical history significant for hypertension, chronic migraines, a recent diagnosis of alcoholic liver disease, and recurrent pancreatitis. She presented to the emergency department on January 21, 2024, with complaints of nausea, vomiting, and an inability to tolerate oral intake for the past five days. She denied having any fever but did report right upper quadrant abdominal pain and episodes of diarrhea. The patient admitted to ongoing alcohol use and has a history of delirium tremens. She also uses narcotics at home for chronic pancreatitis. 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 On arrival, her vital signs showed a blood pressure of 119/89 mmHg and a heart rate of 135 bpm; she was afebrile. Initial labs revealed a WBC count of 14.7, hemoglobin 13, platelets 640, sodium 135, potassium 2.9, chloride 86, bicarbonate 31, BUN 30, and creatinine 0.40. Her lactate was elevated at 7.0, with an anion gap of 19. Urinalysis was not strongly suggestive of infection, showing only trace leukocyte esterase with no bacteria or white blood cells. A CT of the abdomen and pelvis was unremarkable aside from findings consistent with fatty liver; there was no evidence of ascites. She was admitted for supportive management and further evaluation. The emergency physician contacted [facility], where her GI physician, Dr. Kat, is on staff, but no beds were available, so she remained admitted at [facility]. A repeat lactate level today decreased to 2.7 following administration of a 1.5- liter fluid bolus per guidelines, and it will be rechecked later this evening. Her heart rate has improved but remains mildly tachycardic. An abdominal ultrasound completed yesterday was negative. Her bilirubin has increased to 5.3 today, and she continues to complain of right upper quadrant pain. However, she is now tolerating oral intake without issue. Her anion gap has normalized, and liver enzymes are improving. She currently denies any additional concerns. 01/22/25 The patient is resting in bed and reports that she continues to feel unwell overall, though she is now tolerating oral intake and maintaining adequate hydration. Due to her improved ability to eat and drink, morphine has been discontinued. [place]den has been initiated on a QID PRN basis for ongoing right upper quadrant pain. Her bilirubin and liver function tests have shown improvement today, though they remain elevated. Lactic acid remains elevated at 3.6; a 1.5-liter fluid bolus has been ordered, with plans to recheck levels later this afternoon. Her heart rate is trending down and showing signs of improvement. Intravenous fluids are being continued. The patient denies chest pain, shortness of breath, nausea, or vomiting at this time. 01/23/25 Today, the patient is resting in bed. She initially refused morning labs but agreed to have them drawn after further discussion. She reports poor sleep overnight and complains of nausea and vomiting, though she states she is eating well. Lactic acid remains elevated at 4.6; IV fluid boluses have been ordered. Liver function tests are stable compared to yesterday, with bilirubin slightly decreased at 4.10. Surgery was consulted yesterday and recommended proceeding with the previously ordered MRCP. The patient required removal of her ankle bracelet (due to house arrest) to undergo the test. The MRCP is scheduled for Saturday, as it could not be completed on Saturday. The patient reports improvement in abdominal pain today. Transfer to a facility with GI services was discussed yesterday with pt due to the patients irritability about care, but she declined. Pain management options were offered, including an increase in pain medication, but she refused, stating it would worsen her nausea. She reports feeling better today, though continues to be irritable, which she attributes to lack of sleep. - Review of Systems Constitutional: No Fever, No Chills Eyes: No Symptoms Ears, Nose, & Throat: No Symptoms Respiratory: No Cough, No Short Of Breath Cardiac: No Chest Pain, No Edema, No Syncope Abdominal/Gastrointestinal: Nausea, Vomiting, No Abdominal Pain, No Diarrhea Genitourinary Symptoms: No Dysuria Musculoskeletal: No Back Pain, No Neck Pain Skin: No Rash Neurological: No Dizziness, No Focal Weakness, No Sensory Changes Psychological: No Symptoms, Alcohol Abuse, Emotional Lability, Mood Changes Endocrine: No Symptoms Hematologic/Lymphatic: No Symptoms Immunological/Allergic: No Symptoms Objective Exam General Appearance: no apparent distress, alert, thin Neurologic Exam: alert, oriented x 3, cooperative, normal mood/affect, nml cerebellar function, sensation nml, No motor deficits Skin Exam: warm, dry, jaundice, other (dark circles around eyes,) Eye Exam: PERRL, EOMI, eyes nml inspection Ears, Nose, Throat Exam: normal ENT inspection, pharynx normal, moist mucous membranes Neck Exam: normal inspection, non-tender, supple, full range of motion Respiratory Exam: normal breath sounds, lungs clear, No respiratory distress Cardiovascular Exam: regular rate/rhythm, normal heart sounds Gastrointestinal/Abdomen Exam: soft, No tenderness, No mass Extremity Exam: normal inspection, normal range of motion Back Exam: normal inspection, normal range of motion, No CVA tenderness, No vertebral tenderness Pelvic Exam: deferred Rectal Exam: deferred Objective Data Vital Signs: Vital Signs - 24 hr Temp Pulse Resp BP Pulse Ox 01/23/25 07:30 98.4 F 96 H 16 119/85 96 01/23/25 03:52 99.5 F 94 H 18 109/70 96 01/23/25 00:00 98.6 F 100 H 18 117/80 95 01/22/25 19:51 98.3 F 105 H 17 123/89 95 01/22/25 16:58 98 01/22/25 12:00 97.8 F 102 H 24 142/99 98 Pain Assessment - Last Documented Pain Intensity 6 Pain Scale Used 0-10 Pain Scale Intake and Output: Intake & Output 01/20/25 01/21/25 01/22/25 01/23/25 11:59 11:59 11:59 11:59 Intake Total 4004 3064 6402 5259 Output Total 100 Balance 3904 3064 6402 5259 Weight 54.1 kg 54.5 kg 52.7 kg Lab Results: Lab Results-Last 24 Hours 01/22/25 01/22/25 01/23/25 Range/Units 05:45 16:47 09:25 WBC (3.98-10.04) x10^3/uL RBC (3.93-5.22) x10^6/uL Hgb (11.2-15.7) g/dL Hct (34.1-44.9) % MCV (79.4-94.8) fL MCH (25.6-32.2) pg MCHC (32.2-35.5) g/dL RDW (11.7-14.4) % Plt Count (182-369) x10^3/uL MPV (9.4-12.3) fL Gran % (34.0-71.1) % Immature Gran % (Auto) (0.001-0.429) % Nucleat RBC Rel Count (0.00-0.2) % Eos # (Auto) (0.04-0.36) x10^3/uL Immature Gran # (Auto) (0.001-0.031) x10^3u/L Absolute Lymphs (auto) (1.18-3.74) x10^3/uL Absolute Monos (auto) (0.24-0.86) x10^3/uL Absolute Nucleated RBC (0.00-0.012) x10^3u/L Lymphocytes % (19.3-51.7) % Monocytes % (4.7-12.5) % Eosinophils % (0.7-5.8) % Basophils % (0.1-1.2) % Absolute Granulocytes (1.56-6.13) x10^3/uL Basophils # (0.01-0.08) x10^3/uL Lactic Acid 3.0 H 4.6 H (0.4-2.0) Total Bilirubin 4.40 H (0.2-1.3) mg/dL Direct Bilirubin 3.4 H (0.0-0.4) mg/dL AST 254 H (14-36) U/L ALT 66 H (0-35) U/L Alkaline Phosphatase 368 H (38-126) U/L Serum Total Protein 5.3 L (6.3-8.2) g/dL Albumin 2.5 L (3.5-5.0) g/dL 01/23/25 Range/Units 09:27 WBC 8.1 (3.98-10.04) x10^3/uL RBC 3.41 L (3.93-5.22) x10^6/uL Hgb 10.8 L (11.2-15.7) g/dL Hct 33.4 L (34.1-44.9) % MCV 97.9 H (79.4-94.8) fL MCH 31.7 (25.6-32.2) pg MCHC 32.3 (32.2-35.5) g/dL RDW 15.8 H (11.7-14.4) % Plt Count 304 (182-369) x10^3/uL MPV 9.5 (9.4-12.3) fL Gran % 66.8 (34.0-71.1) % Immature Gran % (Auto) 0.6 H (0.001-0.429) % Nucleat RBC Rel Count 0.0 (0.00-0.2) % Eos # (Auto) 0.15 (0.04-0.36) x10^3/uL Immature Gran # (Auto) 0.05 H (0.001-0.031) x10^3u/L Absolute Lymphs (auto) 1.73 (1.18-3.74) x10^3/uL Absolute Monos (auto) 0.68 (0.24-0.86) x10^3/uL Absolute Nucleated RBC 0.00 (0.00-0.012) x10^3u/L Lymphocytes % 21.4 (19.3-51.7) % Monocytes % 8.4 (4.7-12.5) % Eosinophils % 1.9 (0.7-5.8) % Basophils % 0.9 (0.1-1.2) % Absolute Granulocytes 5.39 (1.56-6.13) x10^3/uL Basophils # 0.07 (0.01-0.08) x10^3/uL Lactic Acid (0.4-2.0) Total Bilirubin (0.2-1.3) mg/dL Direct Bilirubin (0.0-0.4) mg/dL AST (14-36) U/L ALT (0-35) U/L Alkaline Phosphatase (38-126) U/L Serum Total Protein (6.3-8.2) g/dL Albumin (3.5-5.0) g/dL Radiology Exams: Radiology Procedures Category Date Time Status MRI ABDOMEN WITH CONTRAST [MRI] Routine Exams 01/25/25 08:00 Ordered Medications: Medications Generic Name Dose Route Start Last Admin Trade Name Freq PRN Reason Stop Dose Admin Hydrocodone Bitart/Acetaminophen 1 tablet 01/22/25 09:53 01/23/25 09:10 Hydrocodone/Acetamin 10-325 Mg Tablet PO 01/27/25 09:52 1 tablet Q6H PRN PRN Administration PAIN Clonazepam 0.5 mg 01/22/25 21:56 01/23/25 09:12 Clonazepam 0.5 Mg Tablet PO 02/21/25 21:55 0.5 mg BID PRN PRN Administration ANXIETY Enoxaparin Sodium 40 mg 01/20/25 10:00 01/23/25 09:12 Enoxaparin Sodium 40 Mg/0.4 Ml Syringe SQ 02/19/25 09:59 40 mg DAILY DANE Administration Folic Acid 1 mg 01/20/25 10:00 01/23/25 09:11 Folic Acid 1 Mg Tablet PO 02/19/25 09:59 1 mg DAILY DANE Administration Furosemide 40 mg 01/20/25 10:00 01/20/25 10:09 Furosemide 40 Mg Tablet PO 02/19/25 09:59 40 mg DAILY DANE Administration Sodium Chloride 1,000 mls @ 75 mls/hr 01/21/25 12:15 01/22/25 20:41 Sodium Chloride 0.9% 1000 Ml IV 02/20/25 12:14 75 mls/hr .[id number] DANE Administration Lactobacillus Acidophilus 1 tab 01/20/25 10:00 01/23/25 09:10 Lactobacillus Acidophilus 1 Tab Tablet PO 02/19/25 09:59 1 tab DAILY DANE Administration Loperamide HCl 2 mg 01/21/25 10:32 Loperamide Hcl 2 Mg Capsule PO 02/20/25 10:31 PRN PRN DIARRHEA Naloxone HCl 0.4 mg 01/20/25 13:40 Naloxone Hcl 0.4 Mg/Ml Ml IV 02/19/25 13:39 PRN PRN RESPIRATORY DEPRESSION Pantoprazole Sodium 40 mg 01/19/25 22:45 01/22/25 22:04 Pantoprazole 40 Mg Vial IV 02/18/25 22:44 40 mg Q24H DANE Administration Propranolol HCl 20 mg 01/20/25 10:00 01/23/25 09:12 Propranolol Hcl 20 Mg Tablet PO 02/19/25 09:59 20 mg BID DANE Administration Spironolactone 25 mg 01/20/25 10:00 01/23/25 09:10 Spironolactone 25 Mg Tablet PO 02/19/25 09:59 25 mg DAILY DANE Administration Discontinued Medications Generic Name Dose Route Start Last Admin Trade Name Freq PRN Reason Stop Dose Admin Hydrocodone Bitart/Acetaminophen 1 tab 01/22/25 09:18 Hydrocodone/Apap 5/325 1 Tab Tablet PO 01/27/25 09:17 QID PRN PRN PAIN Calcium Carbonate/Glycine 750 mg 01/20/25 10:00 01/22/25 09:08 Calcium Carbonate 750 Mg 750 Mg Tab.Chew PO 02/19/25 09:59 750 mg BID DANE Administration Diphenhydramine HCl 25 mg 01/20/25 09:46 01/20/25 10:09 Diphenhydramine Hcl 25 Mg Capsule PO 01/20/25 09:47 25 mg STAT ONE Administration Heparin Sodium (Beef Lung) 5,000 unit 01/21/25 22:00 Heparin 5000 Units/0.5 Ml 5,000 Unit/0.5 Ml Syr SQ 02/20/25 21:59 BID DANE Hydromorphone HCl 0.5 mg 01/19/25 20:39 01/19/25 20:50 Hydromorphone 1 Mg/1ml Inj IV 01/19/25 20:40 0.5 mg STAT ONE Administration Hydromorphone HCl Confirm 01/19/25 20:49 Hydromorphone 1 Mg/1ml Inj Administered 01/19/25 20:50 Dose 1 mg .ROUTE .STK-MED ONE Sodium Chloride 1,000 mls @ 999 mls/hr 01/19/25 17:45 01/19/25 18:56 Sodium Chloride 0.9% 1000 Ml IV 01/19/25 18:45 Infused .Q1H1M STA Infusion Sodium Chloride Confirm 01/19/25 17:53 Sodium Chloride 0.9% 1000 Ml Administered 01/19/25 17:54 Dose 1,000 mls @ ud .ROUTE .STK-MED ONE Magnesium Sulfate/Dextrose 100 mls @ 100 mls/hr 01/19/25 19:00 01/19/25 20:20 Magnesium 1 Gm / 100 Ml D5w IV 01/19/25 20:59 Infused Q1H DANE Infusion Potassium Chloride 20 meq in 100 mls @ 50 mls/hr 01/19/25 19:00 01/19/25 22:38 Potassium Chloride 20 Meq In Water 100ml IV 01/19/25 22:59 50 mls/hr Q2H DANE Administration Lactated Ringer's 1,000 mls @ 150 mls/hr 01/19/25 19:58 01/19/25 20:05 Lactated Ringers IV 01/20/25 02:37 150 mls/hr .Q6H40M STA Administration Lactated Ringer's Confirm 01/19/25 20:02 Lactated Ringers Administered 01/19/25 20:03 Dose 1,000 mls @ ud IV .STK-MED ONE Magnesium Sulfate/Dextrose Confirm 01/19/25 18:57 Magnesium 1 Gm / 100 Ml D5w Administered 01/19/25 18:58 Dose 100 mls @ ud IV .STK-MED ONE Magnesium Sulfate/Dextrose Confirm 01/19/25 19:49 Magnesium 1 Gm / 100 Ml D5w Administered 01/19/25 19:50 Dose 100 mls @ ud IV .STK-MED ONE Potassium Chloride Confirm 01/19/25 22:25 Potassium Chloride 20 Meq In Water 100ml Administered 01/19/25 22:26 Dose 100 mls @ ud IV .STK-MED ONE Dextrose/Lactated Ringer's 1,000 mls @ 100 mls/hr 01/19/25 23:00 01/21/25 23:19 Dextrose 5%-Lr Iv Solution 1000 Ml IV 02/18/25 22:59 Not Given .Q10H DANE Sodium Chloride 500 mls @ 500 mls/hr 01/19/25 22:52 01/19/25 23:08 Sodium Chloride 0.9% 500 Ml IV 01/19/25 23:51 500 mls/hr .Q1H ONE Administration Potassium Chloride 20 meq in 100 mls @ 50 mls/hr 01/20/25 01:00 01/20/25 03:53 Potassium Chloride 20 Meq In Water 100ml IV 01/20/25 04:59 50 mls/hr Q2H DANE Administration Sodium Chloride 1,000 mls @ 999 mls/hr 01/20/25 01:15 01/20/25 01:29 Sodium Chloride 0.9% 1000 Ml IV 01/20/25 02:15 999 mls/hr .Q1H1M ONE Administration Sodium Chloride 1,000 mls @ 999 mls/hr 01/21/25 08:55 01/21/25 09:14 Sodium Chloride 0.45% 1000 Ml IV 01/21/25 09:55 999 mls/hr .Q1H1M ONE Administration Sodium Chloride 500 mls @ 500 mls/hr 01/21/25 08:57 01/21/25 11:14 Sodium Chloride 0.9% 500 Ml IV 01/21/25 09:56 500 mls/hr .Q1H ONE Administration Sodium Chloride 500 mls @ 500 mls/hr 01/22/25 07:27 01/22/25 08:21 Sodium Chloride 0.9% 500 Ml IV 01/22/25 08:26 500 mls/hr .Q1H ONE Administration Sodium Chloride 1,000 mls @ 999 mls/hr 01/22/25 07:27 01/22/25 08:22 Sodium Chloride 0.9% 1000 Ml IV 01/22/25 08:27 999 mls/hr .Q1H1M STA Administration Sodium Chloride 1,000 mls @ 999 mls/hr 01/22/25 17:18 01/22/25 18:05 Sodium Chloride 0.9% 1000 Ml IV 01/22/25 18:18 999 mls/hr .Q1H1M STA Administration Sodium Chloride 500 mls @ 500 mls/hr 01/22/25 17:18 01/22/25 18:50 Sodium Chloride 0.9% 500 Ml IV 01/22/25 18:17 500 mls/hr .Q1H ONE Administration Lorazepam 1 mg 01/19/25 22:54 01/20/25 13:19 Lorazepam 2 Mg/1 Ml 2 Mg Vial IV 02/18/25 22:53 1 mg Q2H PRN PRN Administration ANXIETY/AGITATION Lorazepam 1 mg 01/21/25 01:45 01/21/25 03:01 Lorazepam 2 Mg/1 Ml 2 Mg Vial IV 01/21/25 01:46 1 mg 1XONLY ONE Administration Metoclopramide HCl 10 mg 01/19/25 18:54 01/19/25 19:09 Metoclopramide Hcl 10 Mg/2 Ml Vial IV 01/19/25 18:55 10 mg STAT ONE Administration Metoclopramide HCl Confirm 01/19/25 18:57 Metoclopramide Hcl 10 Mg/2 Ml Vial Administered 01/19/25 18:58 Dose 10 mg .ROUTE .STK-MED ONE Morphine Sulfate 4 mg 01/19/25 18:54 01/19/25 19:07 Morphine Sulfate 4 Mg/Ml Injection IV 01/19/25 18:55 4 mg STAT ONE Administration Morphine Sulfate Confirm 01/19/25 18:57 Morphine Sulfate 4 Mg/Ml Injection Administered 01/19/25 18:58 Dose 4 mg .ROUTE .STK-MED ONE Morphine Sulfate 2 mg 01/19/25 22:42 01/22/25 09:13 Morphine Sulfate 2 Mg/Ml Inj IV 01/23/25 22:41 2 mg Q4H PRN PRN Administration SEVERE PAIN Ondansetron HCl 4 mg 01/19/25 17:45 01/19/25 17:54 Ondansetron Hcl 4 Mg/2 Ml Vial IV 01/19/25 17:46 4 mg STAT ONE Administration Ondansetron HCl Confirm 01/19/25 17:53 Ondansetron Hcl 4 Mg/2 Ml Vial Administered 01/19/25 17:54 Dose 4 mg .ROUTE .STK-MED ONE Potassium Chloride 20 meq 01/20/25 07:47 01/20/25 10:09 Potassium Chloride Tab 10 Meq Tab PO 01/20/25 07:48 20 meq STAT ONE Administration Potassium Chloride Confirm 01/20/25 10:03 Potassium Chloride Tab 10 Meq Tab Administered 01/20/25 10:04 Dose 20 meq .ROUTE .STK-MED ONE Thiamine HCl 100 mg 01/19/25 22:55 01/19/25 23:07 Thiamine Hcl 200 Mg/2 Ml Vial IV 01/19/25 22:56 100 mg STAT ONE Administration Multi-Disciplinary Progress Notes: Multi-Disciplinary Progress Notes 01/22/25 12:07 Case Management Note by Vira Campbell S/W PATIENT- SHE CONTINUES TO DENY ANY NEW NEEDS AT TIME OF DC. SHE HAS BEEN GIVEN LIST OF TELE HEALTH SERVICES FOR ALCOHOL ABUSE. SHE DENIES ANY OTHER NEEDS AT THIS TIME. Initialized on 01/22/25 12:07 - END OF NOTE Assessment/Plan (1) Abdominal pain Current Visit: Yes Status: Acute Code(s): R10.9 - UNSPECIFIED ABDOMINAL PAIN (2) Diarrhea Current Visit: Yes Status: Acute Code(s): R19.7 - DIARRHEA, UNSPECIFIED (3) Elevated lactic acid level Current Visit: Yes Status: Acute Code(s): R79.89 - OTHER SPECIFIED ABNORMAL FINDINGS OF BLOOD CHEMISTRY (4) Alcoholic cirrhosis Current Visit: Yes Status: Chronic Code(s): K70.30 - ALCOHOLIC CIRRHOSIS OF LIVER WITHOUT ASCITES (5) Hyperbilirubinemia Current Visit: Yes Status: Acute Code(s): E80.6 - OTHER DISORDERS OF BILIRUBIN METABOLISM (6) Alcohol dependence Current Visit: No Status: Acute Code(s): F10.20 - ALCOHOL DEPENDENCE, UNCOMPLICATED (7) History of chronic pancreatitis Current Visit: No Status: Chronic Code(s): Z87.19 - PERSONAL HISTORY OF OTHER DISEASES OF THE DIGESTIVE SYSTEM (8) Anxiety and depression Current Visit: No Status: Chronic Code(s): F41.9 - ANXIETY DISORDER, UNSPECIFIED; F32.A - DEPRESSION, UNSPECIFIED (9) HTN (hypertension) Current Visit: No Status: Chronic Code(s): I10 - ESSENTIAL (PRIMARY) HYPERTENSION (10) High anion gap metabolic acidosis Current Visit: Yes Status: Resolved Code(s): E87.29 - OTHER ACIDOSIS (11) Dehydration Current Visit: No Status: Resolved Code(s): E86.0 - DEHYDRATION (12) Nausea & vomiting Current Visit: Yes Status: Resolved Code(s): R11.2 - NAUSEA WITH VOMITING, UNSPECIFIED (13) Hypokalemia Current Visit: Yes Status: Resolved Code(s): E87.6 - HYPOKALEMIA (14) Hypocalcemia Current Visit: Yes Status: Acute Assessment & Plan: (1) Abdominal pain Current Visit: Yes Status: Acute Assessment & Plan: - CBC. CMP reviewed - US abd.: Fatty hepatomegaly - Abd CT/ pelvis: Fatty hepatomegaly - IVF - Narcotic pain medication - Eating and drinking well 01/22 - Change narcotic IV pain meds to PO as pt tolerating PO intake well. - CBC, CMP reviewed - HR improving 01/23 - Resolved - MRCP Saturday - CBC, CMP reviewed - Temp 99.5 @ 0352 Code(s): R10.9 - UNSPECIFIED ABDOMINAL PAIN (2) Diarrhea Current Visit: Yes Status: Acute Assessment & Plan: - C-diff negative - Probiotics - Imodium 01/23 - Improved Code(s): R19.7 - DIARRHEA, UNSPECIFIED (3) Elevated lactic acid level Current Visit: Yes Status: Acute Assessment & Plan: - LA today 2.7 - 1.5L NS fluid bolus ordered - Will recheck LA this afternoon - 2:2 N/V/D- see plans - tele - CBC, CMP reviewed - 2:2 liver cirrhosis? - Have to be careful as to not cause fluid overload as she takes Lasix OP. 01/22 - LA 3.6- 1.5L fluid bolus ordered - recheck this afternoon - GS consult 01/23 - LA 4.6- 2L fluid bolus ordered - Recheck this afternoon Code(s): R79.89 - OTHER SPECIFIED ABNORMAL FINDINGS OF BLOOD CHEMISTRY (4) Alcoholic cirrhosis Current Visit: Yes Status: Chronic Assessment & Plan: - F/U OP with Dr. Kat- GI - AST 291, ALT 76- improving 01/22 - AST 239, ALT 67- improving - IVF 01/23 - AST 251, ALT 69 - MRCP Saturday Code(s): K70.30 - ALCOHOLIC CIRRHOSIS OF LIVER WITHOUT ASCITES (5) Hyperbilirubinemia Current Visit: Yes Status: Acute Assessment & Plan: - Bili- 5.30- increased today- trend - IVF - US and CT reviewed 01/22 - IVF - Bili 4.60- improving - Surg consult - MRCP 01/23 - Total bili 4.10- improving - IVF - MRCP to be done Saturday Code(s): E80.6 - OTHER DISORDERS OF BILIRUBIN METABOLISM (6) Alcohol dependence Current Visit: No Status: Acute Assessment & Plan: - Advised cessation - Pt states she has not been drinking like she used to but did have a shot on [employer] - Will monitor for withdrawl sxs - Tele Code(s): F10.20 - ALCOHOL DEPENDENCE, UNCOMPLICATED (7) History of chronic pancreatitis Current Visit: No Status: Chronic Assessment & Plan: - Lipase normal - Labs reviewed Code(s): Z87.19 - PERSONAL HISTORY OF OTHER DISEASES OF THE DIGESTIVE SYSTEM (8) Anxiety and depression Current Visit: No Status: Chronic Assessment & Plan: - Ativan stopped as she was becoming confused and had resp depression in combination with narcotic pain meds - Will need OP f/u - Clonazepam BID PRN Code(s): F41.9 - ANXIETY DISORDER, UNSPECIFIED; F32.A - DEPRESSION, UNSPECIFIED (9) HTN (hypertension) Current Visit: No Status: Chronic Assessment & Plan: - BP stable - Not currently taking BP meds Code(s): I10 - ESSENTIAL (PRIMARY) HYPERTENSION (10) High anion gap metabolic acidosis Current Visit: Yes Status: Resolved Assessment & Plan: - Resolved - IVF Code(s): E87.29 - OTHER ACIDOSIS (11) Dehydration Current Visit: No Status: Resolved Assessment & Plan: - Resolved - Labs reviewed Code(s): E86.0 - DEHYDRATION (12) Nausea & vomiting Current Visit: Yes Status: Resolved Assessment & Plan: - Resolved - Antiemetic Code(s): R11.2 - NAUSEA WITH VOMITING, UNSPECIFIED (13) Hypokalemia Current Visit: Yes Status: Resolved Assessment & Plan: - Resolved Code(s): E87.6 - HYPOKALEMIA (14) Hypocalcemia Current Visit: Yes Status: Acute Assessment & Plan: - Corrected Ca+ 8.5 01/22 - Tums stopped - resolved VTE: Heparin PPI: Protonix Next of KIN: D/C plan: Saturday? Code status: Full Code(s): E83.51 - HYPOCALCEMIA Code(s): E83.51 - HYPOCALCEMIA
[2025-01-23 09:43] LABS: ALBUMIN 2.8 g/dL (3.5-5.0); ALKALINE PHOSPHATASE 344 U/L (38-126); ANION GAP 14.5 MEQ/L (5-15); BLOOD UREA NITROGEN < 2 mg/dL (7-17); CHLORIDE 104 mmol/L (98-107); Calcium 7.7 mg/dL (8.4-10.2); Carbon Dioxide 21 mmol/L (22-30); Creatinine 1 0.36 mg/dL (0.52-1.04); EST GLOMERULAR FILTRATION RATE 135.7 ML/MIN; Glucose 139 mg/dL (74-106); Potassium 3.5 mmol/L (3.5-5.1); SGOT/AST 251 U/L (14-36); SGPT/ALT 69 U/L (0-35); SODIUM 136 mmol/L (135-145); Total Protein 5.7 g/dL (6.3-8.2)
[2025-01-23] MEDS: Sodium Chloride 0.9% 1000 ML 1,000 ML IV STA (15:22)
[2025-01-23] MEDS: Sodium Chloride 0.9% 1000 ML 1,000 ML IV SCH (16:25)
[2025-01-24 06:06] LABS: Hematocrit 31.9 % (34.1-44.9); Hemoglobin 10.3 g/dL (11.2-15.7); Mean Cell Volume 99.1 fL (79.4-94.8); Mean Corpuscular Hgb Concent. 32.3 g/dL (32.2-35.5); Mean Platelet Volume 10.1 fL (9.4-12.3); Platelet Count 314 x10^3/uL (182-369); Red Blood Count 3.22 x10^6/uL (3.93-5.22); Red Cell Distribution Width 15.9 % (11.7-14.4); White Blood Count 7.8 x10^3/uL (3.98-10.04)
[2025-01-24 06:12] LABS: ALBUMIN 2.6 g/dL (3.5-5.0); ALKALINE PHOSPHATASE 335 U/L (38-126); ANION GAP 16.7 MEQ/L (5-15); CHLORIDE 106 mmol/L (98-107); Calcium 7.4 mg/dL (8.4-10.2); Carbon Dioxide 22 mmol/L (22-30); Creatinine 1 0.42 mg/dL (0.52-1.04); EST GLOMERULAR FILTRATION RATE 130.7 ML/MIN; Glucose 114 mg/dL (74-106); Potassium 3.1 mmol/L (3.5-5.1); SGOT/AST 213 U/L (14-36); SGPT/ALT 60 U/L (0-35); SODIUM 141 mmol/L (135-145); Total Protein 5.3 g/dL (6.3-8.2)
[2025-01-24 06:15] LABS: BLOOD UREA NITROGEN < 2 mg/dL (7-17)
[2025-01-24] MEDS: Klor Con PO SCH (08:03)
[2025-01-24] MEDS: Sodium Chloride 0.9% 1000 ML 1,000 ML IV STA (08:03)
[2025-01-24] MEDS: Reglan 10 MG PO ONE (08:36)
[2025-01-24] MEDS: BENADRYL 25 MG CAPSULE PO ONE (08:36)
[2025-01-24] MEDS: Sodium Chloride 0.9% 1000 ML 1,000 ML IV SCH (09:12)
--- NOTE | 2025-01-24 09:34 | PCM.NOTE ---
Date and Time: 01/24/25 0928 Subjective Assessment: 01/21/25 The patient is a 34-year-old pleasant female with a medical history significant for hypertension, chronic migraines, a recent diagnosis of alcoholic liver disease, and recurrent pancreatitis. She presented to the emergency department on January 21, 2024, with complaints of nausea, vomiting, and an inability to tolerate oral intake for the past five days. She denied having any fever but did report right upper quadrant abdominal pain and episodes of diarrhea. The patient admitted to ongoing alcohol use and has a history of delirium tremens. She also uses narcotics at home for chronic pancreatitis. She reported having recently followed up with her schedule hanger regarding her liver disease. On arrival, her vital signs showed a blood pressure of 119/89 mmHg and a heart rate of 135 bpm; she was afebrile. Initial labs revealed a WBC count of 14.7, hemoglobin 13, platelets 640, sodium 135, potassium 2.9, chloride 86, bicarbonate 31, BUN 30, and creatinine 0.40. Her lactate was elevated at 7.0, with an anion gap of 19. Urinalysis was not strongly suggestive of infection, showing only trace leukocyte esterase with no bacteria or white blood cells. A CT of the abdomen and pelvis was unremarkable aside from findings consistent with fatty liver; there was no evidence of ascites. She was admitted for supportive management and further evaluation. The emergency physician contacted [facility], where her GI physician, Dr. Kat, is on staff, but no beds were available, so she remained admitted at [facility]. A repeat lactate level today decreased to 2.7 following administration of a 1.5- liter fluid bolus per guidelines, and it will be rechecked later this evening. Her heart rate has improved but remains mildly tachycardic. An abdominal ultrasound completed yesterday was negative. Her bilirubin has increased to 5.3 today, and she continues to complain of right upper quadrant pain. However, she is now tolerating oral intake without issue. Her anion gap has normalized, and liver enzymes are improving. She currently denies any additional concerns. 01/22/25 The patient is resting in bed and reports that she continues to feel unwell overall, though she is now tolerating oral intake and maintaining adequate hydration. Due to her improved ability to eat and drink, morphine has been discontinued. Mallie has been initiated on a QID PRN basis for ongoing right upper quadrant pain. Her bilirubin and liver function tests have shown improvement today, though they remain elevated. Lactic acid remains elevated at 3.6; a 1.5-liter fluid bolus has been ordered, with plans to recheck levels later this afternoon. Her heart rate is trending down and showing signs of improvement. Intravenous fluids are being continued. The patient denies chest pain, shortness of breath, nausea, or vomiting at this time. 01/23/25 Today, the patient is resting in bed. She initially refused morning labs but agreed to have them drawn after further discussion. She reports poor sleep overnight and complains of nausea and vomiting, though she states she is eating well. Lactic acid remains elevated at 4.6; IV fluid boluses have been ordered. Liver function tests are stable compared to yesterday, with bilirubin slightly decreased at 4.10. Surgery was consulted yesterday and recommended proceeding with the previously ordered MRCP. The patient required removal of her ankle bracelet (due to house arrest) to undergo the test. The MRCP is scheduled for Saturday, as it could not be completed on Saturday. The patient reports improvement in abdominal pain today. Transfer to a facility with GI services was discussed yesterday with pt due to the patients irritability about care, but she declined. Pain management options were offered, including an increase in pain medication, but she refused, stating it would worsen her nausea. She reports feeling better today, though continues to be irritable, which she attributes to lack of sleep. The patient is resting in bed. Liver enzymes and bilirubin are showing improvement. However, lactic acid has increased to 5.7 this morning. Yesterday, two IV fluid boluses were ordered in the morning but were not administered, as the nurse reported she did not see the order. The boluses were eventually given in the afternoon after clarification. Lactic acid was rechecked overnight and continued to trend upward. Although the overnight provider was notified, no additional fluids were ordered at that time. Today, two liters of IV fluids have been ordered, as the patient's heart rate improves with hydration. The abdomen appears slightly more distended today. She is also complaining of a migraine, for which Benadryl and Reglan have been ordered. She continues to eat and drink well. Potassium was 3.1 and has been replaced orally. The MRCP is scheduled for tomorrow. - Review of Systems Constitutional: No Fever, No Chills Eyes: No Symptoms Ears, Nose, & Throat: No Symptoms Respiratory: No Cough, No Short Of Breath Cardiac: No Chest Pain, No Edema, No Syncope Abdominal/Gastrointestinal: Other (abd. distention), No Abdominal Pain, No Nausea, No Vomiting, No Diarrhea Genitourinary Symptoms: No Dysuria Musculoskeletal: No Back Pain, No Neck Pain Skin: No Rash Neurological: Headache, No Dizziness, No Focal Weakness, No Sensory Changes Psychological: No Symptoms Endocrine: No Symptoms Hematologic/Lymphatic: No Symptoms Immunological/Allergic: No Symptoms Objective Exam General Appearance: no apparent distress, alert, thin Neurologic Exam: alert, oriented x 3, cooperative, normal mood/affect, nml cerebellar function, sensation nml, No motor deficits Skin Exam: warm, dry, jaundice Eye Exam: PERRL, EOMI, eyes nml inspection Ears, Nose, Throat Exam: normal ENT inspection, pharynx normal, moist mucous membranes Neck Exam: normal inspection, non-tender, supple, full range of motion Respiratory Exam: normal breath sounds, lungs clear, No respiratory distress Cardiovascular Exam: regular rate/rhythm, normal heart sounds, tachycardia Gastrointestinal/Abdomen Exam: soft, distention, No tenderness, No mass Extremity Exam: normal inspection, normal range of motion Back Exam: normal inspection, normal range of motion, No CVA tenderness, No vertebral tenderness Pelvic Exam: deferred Rectal Exam: deferred Objective Data Vital Signs: Vital Signs - 24 hr Temp Pulse Resp BP Pulse Ox 01/24/25 07:19 97.5 F 112 H 16 117/83 98 01/24/25 04:00 98.9 F 113 H 16 113/83 98 01/23/25 23:40 98.1 F 112 H 18 114/66 96 01/23/25 19:46 97.7 F 103 H 16 117/82 97 01/23/25 19:44 100 H 01/23/25 16:00 97.7 F 100 H 18 115/92 95 01/23/25 12:00 98.1 F 98 H 16 120/86 98 Pain Assessment - Last Documented Pain Intensity 10 Pain Scale Used [facility] Intake and Output: Intake & Output 01/21/25 01/22/25 01/23/25 01/24/25 11:59 11:59 11:59 11:59 Intake Total 2034 3520 5701 1659 Balance 7635 6402 5709 1659 Weight 54.5 kg 52.7 kg Lab Results: Lab Results-Last 24 Hours 01/23/25 01/23/25 01/23/25 Range/Units 09:25 09:27 09:27 WBC 8.1 (3.98-10.04) x10^3/uL RBC 3.41 L (3.93-5.22) x10^6/uL Hgb 10.8 L (11.2-15.7) g/dL Hct 33.4 L (34.1-44.9) % MCV 97.9 H (79.4-94.8) fL MCH 31.7 (25.6-32.2) pg MCHC 32.3 (32.2-35.5) g/dL RDW 15.8 H (11.7-14.4) % Plt Count 304 (182-369) x10^3/uL MPV 9.5 (9.4-12.3) fL Gran % 66.8 (34.0-71.1) % Immature Gran % (Auto) 0.6 H (0.001-0.429) % Nucleat RBC Rel Count 0.0 (0.00-0.2) % Eos # (Auto) 0.15 (0.04-0.36) x10^3/uL Immature Gran # (Auto) 0.05 H (0.001-0.031) x10^3u/L Absolute Lymphs (auto) 1.73 (1.18-3.74) x10^3/uL Absolute Monos (auto) 0.68 (0.24-0.86) x10^3/uL Absolute Nucleated RBC 0.00 (0.00-0.012) x10^3u/L Lymphocytes % 21.4 (19.3-51.7) % Monocytes % 8.4 (4.7-12.5) % Eosinophils % 1.9 (0.7-5.8) % Basophils % 0.9 (0.1-1.2) % Absolute Granulocytes 5.39 (1.56-6.13) x10^3/uL Basophils # 0.07 (0.01-0.08) x10^3/uL Sodium 136 (135-145) mmol/L Potassium 3.5 (3.5-5.1) mmol/L Chloride 104 (98-107) mmol/L Carbon Dioxide 21 L (22-30) mmol/L Anion Gap 14.5 (5-15) MEQ/L BUN < 2 L (7-17) mg/dL Creatinine 0.36 L (0.52-1.04) mg/dL Estimated GFR 135.7 ML/MIN Glucose 139 H (74-106) mg/dL Lactic Acid 4.6 H (0.4-2.0) Calcium 7.7 L (8.4-10.2) mg/dL Total Bilirubin 4.10 H (0.2-1.3) mg/dL AST 251 H (14-36) U/L ALT 69 H (0-35) U/L Alkaline Phosphatase 344 H (38-126) U/L Serum Total Protein 5.7 L (6.3-8.2) g/dL Albumin 2.8 L (3.5-5.0) g/dL 01/24/25 01/24/25 01/24/25 Range/Units 00:05 05:20 05:48 WBC 7.8 (3.98-10.04) x10^3/uL RBC 3.22 L (3.93-5.22) x10^6/uL Hgb 10.3 L (11.2-15.7) g/dL Hct 31.9 L (34.1-44.9) % MCV 99.1 H (79.4-94.8) fL MCH 32.0 (25.6-32.2) pg MCHC 32.3 (32.2-35.5) g/dL RDW 15.9 H (11.7-14.4) % Plt Count 314 (182-369) x10^3/uL MPV 10.1 (9.4-12.3) fL Gran % (34.0-71.1) % Immature Gran % (Auto) (0.001-0.429) % Nucleat RBC Rel Count (0.00-0.2) % Eos # (Auto) (0.04-0.36) x10^3/uL Immature Gran # (Auto) (0.001-0.031) x10^3u/L Absolute Lymphs (auto) (1.18-3.74) x10^3/uL Absolute Monos (auto) (0.24-0.86) x10^3/uL Absolute Nucleated RBC (0.00-0.012) x10^3u/L Lymphocytes % (19.3-51.7) % Monocytes % (4.7-12.5) % Eosinophils % (0.7-5.8) % Basophils % (0.1-1.2) % Absolute Granulocytes (1.56-6.13) x10^3/uL Basophils # (0.01-0.08) x10^3/uL Sodium (135-145) mmol/L Potassium (3.5-5.1) mmol/L Chloride (98-107) mmol/L Carbon Dioxide (22-30) mmol/L Anion Gap (5-15) MEQ/L BUN (7-17) mg/dL Creatinine (0.52-1.04) mg/dL Estimated GFR ML/MIN Glucose (74-106) mg/dL Lactic Acid 4.6 H 5.7 H (0.4-2.0) Calcium (8.4-10.2) mg/dL Total Bilirubin (0.2-1.3) mg/dL AST (14-36) U/L ALT (0-35) U/L Alkaline Phosphatase (38-126) U/L Serum Total Protein (6.3-8.2) g/dL Albumin (3.5-5.0) g/dL 01/24/25 Range/Units 05:48 WBC (3.98-10.04) x10^3/uL RBC (3.93-5.22) x10^6/uL Hgb (11.2-15.7) g/dL Hct (34.1-44.9) % MCV (79.4-94.8) fL MCH (25.6-32.2) pg MCHC (32.2-35.5) g/dL RDW (11.7-14.4) % Plt Count (182-369) x10^3/uL MPV (9.4-12.3) fL Gran % (34.0-71.1) % Immature Gran % (Auto) (0.001-0.429) % Nucleat RBC Rel Count (0.00-0.2) % Eos # (Auto) (0.04-0.36) x10^3/uL Immature Gran # (Auto) (0.001-0.031) x10^3u/L Absolute Lymphs (auto) (1.18-3.74) x10^3/uL Absolute Monos (auto) (0.24-0.86) x10^3/uL Absolute Nucleated RBC (0.00-0.012) x10^3u/L Lymphocytes % (19.3-51.7) % Monocytes % (4.7-12.5) % Eosinophils % (0.7-5.8) % Basophils % (0.1-1.2) % Absolute Granulocytes (1.56-6.13) x10^3/uL Basophils # (0.01-0.08) x10^3/uL Sodium 141 (135-145) mmol/L Potassium 3.1 L (3.5-5.1) mmol/L Chloride 106 (98-107) mmol/L Carbon Dioxide 22 (22-30) mmol/L Anion Gap 16.7 H (5-15) MEQ/L BUN < 2 L (7-17) mg/dL Creatinine 0.42 L (0.52-1.04) mg/dL Estimated GFR 130.7 ML/MIN Glucose 114 H (74-106) mg/dL Lactic Acid (0.4-2.0) Calcium 7.4 L (8.4-10.2) mg/dL Total Bilirubin 3.40 H (0.2-1.3) mg/dL AST 213 H (14-36) U/L ALT 60 H (0-35) U/L Alkaline Phosphatase 335 H (38-126) U/L Serum Total Protein 5.3 L (6.3-8.2) g/dL Albumin 2.6 L (3.5-5.0) g/dL Radiology Exams: Radiology Procedures Category Date Time Status MRI ABDOMEN WITH CONTRAST [MRI] Routine Exams 01/25/25 08:00 Ordered Medications: Medications Generic Name Dose Route Start Last Admin Trade Name Freq PRN Reason Stop Dose Admin Hydrocodone Bitart/Acetaminophen 1 tablet 01/22/25 09:53 01/24/25 05:00 Hydrocodone/Acetamin 10-325 Mg Tablet PO 01/27/25 09:52 1 tablet Q6H PRN PRN Administration PAIN Clonazepam 0.5 mg 01/22/25 21:56 01/23/25 21:55 Clonazepam 0.5 Mg Tablet PO 02/21/25 21:55 0.5 mg BID PRN PRN Administration ANXIETY Enoxaparin Sodium 40 mg 01/20/25 10:00 01/23/25 09:12 Enoxaparin Sodium 40 Mg/0.4 Ml Syringe SQ 02/19/25 09:59 40 mg DAILY DANE Administration Folic Acid 1 mg 01/20/25 10:00 01/23/25 09:11 Folic Acid 1 Mg Tablet PO 02/19/25 09:59 1 mg DAILY DANE Administration Furosemide 40 mg 01/20/25 10:00 01/20/25 10:09 Furosemide 40 Mg Tablet PO 02/19/25 09:59 40 mg DAILY DANE Administration Sodium Chloride 1,000 mls @ 75 mls/hr 01/21/25 12:15 01/23/25 21:54 Sodium Chloride 0.9% 1000 Ml IV 02/20/25 12:14 75 mls/hr .[id number] DANE Administration Sodium Chloride 1,000 mls @ 999 mls/hr 01/24/25 08:45 01/24/25 09:12 Sodium Chloride 0.9% 1000 Ml IV 01/24/25 09:45 999 mls/hr .Q1H1M DANE Administration Lactobacillus Acidophilus 1 tab 01/20/25 10:00 01/23/25 09:10 Lactobacillus Acidophilus 1 Tab Tablet PO 02/19/25 09:59 1 tab DAILY DANE Administration Loperamide HCl 2 mg 01/21/25 10:32 Loperamide Hcl 2 Mg Capsule PO 02/20/25 10:31 PRN PRN DIARRHEA Naloxone HCl 0.4 mg 01/20/25 13:40 Naloxone Hcl 0.4 Mg/Ml Ml IV 02/19/25 13:39 PRN PRN RESPIRATORY DEPRESSION Pantoprazole Sodium 40 mg 01/19/25 22:45 01/23/25 21:55 Pantoprazole 40 Mg Vial IV 02/18/25 22:44 40 mg Q24H DANE Administration Potassium Chloride 20 meq 01/24/25 07:45 01/24/25 08:03 Potassium Chloride Tab 10 Meq Tab PO 01/24/25 13:46 20 meq Q2H DANE Administration Propranolol HCl 20 mg 01/20/25 10:00 01/23/25 21:55 Propranolol Hcl 20 Mg Tablet PO 02/19/25 09:59 20 mg BID DANE Administration Spironolactone 25 mg 01/20/25 10:00 01/23/25 09:10 Spironolactone 25 Mg Tablet PO 02/19/25 09:59 25 mg DAILY DANE Administration Discontinued Medications Generic Name Dose Route Start Last Admin Trade Name Freq PRN Reason Stop Dose Admin Hydrocodone Bitart/Acetaminophen 1 tab 01/22/25 09:18 Hydrocodone/Apap 5/325 1 Tab Tablet PO 01/27/25 09:17 QID PRN PRN PAIN Calcium Carbonate/Glycine 750 mg 01/20/25 10:00 01/22/25 09:08 Calcium Carbonate 750 Mg 750 Mg Tab.Chew PO 02/19/25 09:59 750 mg BID DANE Administration Diphenhydramine HCl 25 mg 01/20/25 09:46 01/20/25 10:09 Diphenhydramine Hcl 25 Mg Capsule PO 01/20/25 09:47 25 mg STAT ONE Administration Diphenhydramine HCl 25 mg 01/24/25 08:14 01/24/25 08:36 Diphenhydramine Hcl 25 Mg Capsule PO 01/24/25 08:15 25 mg ONCE ONE Administration Heparin Sodium (Beef Lung) 5,000 unit 01/21/25 22:00 Heparin 5000 Units/0.5 Ml 5,000 Unit/0.5 Ml Syr SQ 02/20/25 21:59 BID DANE Hydromorphone HCl 0.5 mg 01/19/25 20:39 01/19/25 20:50 Hydromorphone 1 Mg/1ml Inj IV 01/19/25 20:40 0.5 mg STAT ONE Administration Hydromorphone HCl Confirm 01/19/25 20:49 Hydromorphone 1 Mg/1ml Inj Administered 01/19/25 20:50 Dose 1 mg .ROUTE .STK-MED ONE Sodium Chloride 1,000 mls @ 999 mls/hr 01/19/25 17:45 01/19/25 18:56 Sodium Chloride 0.9% 1000 Ml IV 01/19/25 18:45 Infused .Q1H1M STA Infusion Sodium Chloride Confirm 01/19/25 17:53 Sodium Chloride 0.9% 1000 Ml Administered 01/19/25 17:54 Dose 1,000 mls @ ud .ROUTE .STK-MED ONE Magnesium Sulfate/Dextrose 100 mls @ 100 mls/hr 01/19/25 19:00 01/19/25 20:20 Magnesium 1 Gm / 100 Ml D5w IV 01/19/25 20:59 Infused Q1H DANE Infusion Potassium Chloride 20 meq in 100 mls @ 50 mls/hr 01/19/25 19:00 01/19/25 22:38 Potassium Chloride 20 Meq In Water 100ml IV 01/19/25 22:59 50 mls/hr Q2H DANE Administration Lactated Ringer's 1,000 mls @ 150 mls/hr 01/19/25 19:58 01/19/25 20:05 Lactated Ringers IV 01/20/25 02:37 150 mls/hr .Q6H40M STA Administration Lactated Ringer's Confirm 01/19/25 20:02 Lactated Ringers Administered 01/19/25 20:03 Dose 1,000 mls @ ud IV .STK-MED ONE Magnesium Sulfate/Dextrose Confirm 01/19/25 18:57 Magnesium 1 Gm / 100 Ml D5w Administered 01/19/25 18:58 Dose 100 mls @ ud IV .STK-MED ONE Magnesium Sulfate/Dextrose Confirm 01/19/25 19:49 Magnesium 1 Gm / 100 Ml D5w Administered 01/19/25 19:50 Dose 100 mls @ ud IV .STK-MED ONE Potassium Chloride Confirm 01/19/25 22:25 Potassium Chloride 20 Meq In Water 100ml Administered 01/19/25 22:26 Dose 100 mls @ ud IV .STK-MED ONE Dextrose/Lactated Ringer's 1,000 mls @ 100 mls/hr 01/19/25 23:00 01/21/25 23:19 Dextrose 5%-Lr Iv Solution 1000 Ml IV 02/18/25 22:59 Not Given .Q10H DANE Sodium Chloride 500 mls @ 500 mls/hr 01/19/25 22:52 01/19/25 23:08 Sodium Chloride 0.9% 500 Ml IV 01/19/25 23:51 500 mls/hr .Q1H ONE Administration Potassium Chloride 20 meq in 100 mls @ 50 mls/hr 01/20/25 01:00 01/20/25 03:53 Potassium Chloride 20 Meq In Water 100ml IV 01/20/25 04:59 50 mls/hr Q2H DANE Administration Sodium Chloride 1,000 mls @ 999 mls/hr 01/20/25 01:15 01/20/25 01:29 Sodium Chloride 0.9% 1000 Ml IV 01/20/25 02:15 999 mls/hr .Q1H1M ONE Administration Sodium Chloride 1,000 mls @ 999 mls/hr 01/21/25 08:55 01/21/25 09:14 Sodium Chloride 0.45% 1000 Ml IV 01/21/25 09:55 999 mls/hr .Q1H1M ONE Administration Sodium Chloride 500 mls @ 500 mls/hr 01/21/25 08:57 01/21/25 11:14 Sodium Chloride 0.9% 500 Ml IV 01/21/25 09:56 500 mls/hr .Q1H ONE Administration Sodium Chloride 500 mls @ 500 mls/hr 01/22/25 07:27 01/22/25 08:21 Sodium Chloride 0.9% 500 Ml IV 01/22/25 08:26 500 mls/hr .Q1H ONE Administration Sodium Chloride 1,000 mls @ 999 mls/hr 01/22/25 07:27 01/22/25 08:22 Sodium Chloride 0.9% 1000 Ml IV 01/22/25 08:27 999 mls/hr .Q1H1M STA Administration Sodium Chloride 1,000 mls @ 999 mls/hr 01/22/25 17:18 01/22/25 18:05 Sodium Chloride 0.9% 1000 Ml IV 01/22/25 18:18 999 mls/hr .Q1H1M STA Administration Sodium Chloride 500 mls @ 500 mls/hr 01/22/25 17:18 01/22/25 18:50 Sodium Chloride 0.9% 500 Ml IV 01/22/25 18:17 500 mls/hr .Q1H ONE Administration Sodium Chloride 1,000 mls @ 999 mls/hr 01/23/25 09:39 01/23/25 15:22 Sodium Chloride 0.9% 1000 Ml IV 01/23/25 10:39 999 mls/hr .Q1H1M STA Administration Sodium Chloride 1,000 mls @ 999 mls/hr 01/23/25 16:15 01/23/25 19:39 Sodium Chloride 0.9% 1000 Ml IV 02/22/25 16:14 Not Given .Q1H1M DANE Sodium Chloride 1,000 mls @ 999 mls/hr 01/24/25 07:28 01/24/25 08:03 Sodium Chloride 0.9% 1000 Ml IV 01/24/25 08:28 999 mls/hr .Q1H1M STA Administration Lorazepam 1 mg 01/19/25 22:54 01/20/25 13:19 Lorazepam 2 Mg/1 Ml 2 Mg Vial IV 02/18/25 22:53 1 mg Q2H PRN PRN Administration ANXIETY/AGITATION Lorazepam 1 mg 01/21/25 01:45 01/21/25 03:01 Lorazepam 2 Mg/1 Ml 2 Mg Vial IV 01/21/25 01:46 1 mg 1XONLY ONE Administration Metoclopramide HCl 10 mg 01/19/25 18:54 01/19/25 19:09 Metoclopramide Hcl 10 Mg/2 Ml Vial IV 01/19/25 18:55 10 mg STAT ONE Administration Metoclopramide HCl Confirm 01/19/25 18:57 Metoclopramide Hcl 10 Mg/2 Ml Vial Administered 01/19/25 18:58 Dose 10 mg .ROUTE .STK-MED ONE Metoclopramide HCl 10 mg 01/24/25 08:14 01/24/25 08:36 Metoclopramide Hcl 10 Mg Tablet PO 01/24/25 08:15 10 mg ONCE ONE Administration Morphine Sulfate 4 mg 01/19/25 18:54 01/19/25 19:07 Morphine Sulfate 4 Mg/Ml Injection IV 01/19/25 18:55 4 mg STAT ONE Administration Morphine Sulfate Confirm 01/19/25 18:57 Morphine Sulfate 4 Mg/Ml Injection Administered 01/19/25 18:58 Dose 4 mg .ROUTE .STK-MED ONE Morphine Sulfate 2 mg 01/19/25 22:42 01/22/25 09:13 Morphine Sulfate 2 Mg/Ml Inj IV 01/23/25 22:41 2 mg Q4H PRN PRN Administration SEVERE PAIN Ondansetron HCl 4 mg 01/19/25 17:45 01/19/25 17:54 Ondansetron Hcl 4 Mg/2 Ml Vial IV 01/19/25 17:46 4 mg STAT ONE Administration Ondansetron HCl Confirm 01/19/25 17:53 Ondansetron Hcl 4 Mg/2 Ml Vial Administered 01/19/25 17:54 Dose 4 mg .ROUTE .STK-MED ONE Potassium Chloride 20 meq 01/20/25 07:47 01/20/25 10:09 Potassium Chloride Tab 10 Meq Tab PO 01/20/25 07:48 20 meq STAT ONE Administration Potassium Chloride Confirm 01/20/25 10:03 Potassium Chloride Tab 10 Meq Tab Administered 01/20/25 10:04 Dose 20 meq .ROUTE .STK-MED ONE Thiamine HCl 100 mg 01/19/25 22:55 01/19/25 23:07 Thiamine Hcl 200 Mg/2 Ml Vial IV 01/19/25 22:56 100 mg STAT ONE Administration Assessment/Plan (1) Abdominal pain Current Visit: Yes Status: Acute Code(s): R10.9 - UNSPECIFIED ABDOMINAL PAIN (2) Diarrhea Current Visit: Yes Status: Acute Code(s): R19.7 - DIARRHEA, UNSPECIFIED (3) Elevated lactic acid level Current Visit: Yes Status: Acute Code(s): R79.89 - OTHER SPECIFIED ABNORMAL FINDINGS OF BLOOD CHEMISTRY (4) Alcoholic cirrhosis Current Visit: Yes Status: Chronic Code(s): K70.30 - ALCOHOLIC CIRRHOSIS OF LIVER WITHOUT ASCITES (5) Hyperbilirubinemia Current Visit: Yes Status: Acute Code(s): E80.6 - OTHER DISORDERS OF BILIRUBIN METABOLISM (6) Alcohol dependence Current Visit: No Status: Acute Code(s): F10.20 - ALCOHOL DEPENDENCE, UNCOMPLICATED (7) History of chronic pancreatitis Current Visit: No Status: Chronic Code(s): Z87.19 - PERSONAL HISTORY OF OTHER DISEASES OF THE DIGESTIVE SYSTEM (8) Anxiety and depression Current Visit: No Status: Chronic Code(s): F41.9 - ANXIETY DISORDER, UNSPECIFIED; F32.A - DEPRESSION, UNSPECIFIED (9) HTN (hypertension) Current Visit: No Status: Chronic Code(s): I10 - ESSENTIAL (PRIMARY) HYPERTENSION (10) High anion gap metabolic acidosis Current Visit: Yes Status: Resolved Code(s): E87.29 - OTHER ACIDOSIS (11) Dehydration Current Visit: No Status: Resolved Code(s): E86.0 - DEHYDRATION (12) Nausea & vomiting Current Visit: Yes Status: Resolved Code(s): R11.2 - NAUSEA WITH VOMITING, UNSPECIFIED (13) Hypokalemia Current Visit: Yes Status: Resolved Code(s): E87.6 - HYPOKALEMIA (14) Hypocalcemia Current Visit: Yes Status: Acute Assessment & Plan: (1) Abdominal pain Current Visit: Yes Status: Acute Assessment & Plan: - CBC. CMP reviewed - US abd.: Fatty hepatomegaly - Abd CT/ pelvis: Fatty hepatomegaly - IVF - Narcotic pain medication - Eating and drinking well 01/22 - Change narcotic IV pain meds to PO as pt tolerating PO intake well. - CBC, CMP reviewed - HR improving 01/23 - Resolved - MRCP Saturday - CBC, CMP reviewed - Temp 99.5 @ 0352 01/24 - CBC, CMP reviewed Code(s): R10.9 - UNSPECIFIED ABDOMINAL PAIN (2) Diarrhea Current Visit: Yes Status: Acute Assessment & Plan: - C-diff negative - Probiotics - Imodium 01/23 - Improved 01/24 - resolved Code(s): R19.7 - DIARRHEA, UNSPECIFIED (3) Elevated lactic acid level Current Visit: Yes Status: Acute Assessment & Plan: - LA today 2.7 - 1.5L NS fluid bolus ordered - Will recheck LA this afternoon - 2:2 N/V/D- see plans - tele - CBC, CMP reviewed - 2:2 liver cirrhosis? - Have to be careful as to not cause fluid overload as she takes Lasix OP. 01/22 - LA 3.6- 1.5L fluid bolus ordered - recheck this afternoon - GS consult 01/23 - LA 4.6- 2L fluid bolus ordered - Recheck this afternoon 01/24 - LA trending up - LA 5.7 this AM- 2 L fluid bolus ordered as it does improve HR - + tachycardia Code(s): R79.89 - OTHER SPECIFIED ABNORMAL FINDINGS OF BLOOD CHEMISTRY (4) Alcoholic cirrhosis Current Visit: Yes Status: Chronic Assessment & Plan: - F/U OP with Dr. Kat- GI - AST 291, ALT 76- improving 01/22 - AST 239, ALT 67- improving - IVF 01/23 - AST 251, ALT 69 - MRCP Wednesday 01/24 - AST 213, ALT 60- improving Code(s): K70.30 - ALCOHOLIC CIRRHOSIS OF LIVER WITHOUT ASCITES (5) Hyperbilirubinemia Current Visit: Yes Status: Acute Assessment & Plan: - Bili- 5.30- increased today- trend - IVF - US and CT reviewed 01/22 - IVF - Bili 4.60- improving - Surg consult - MRCP 01/23 - Total bili 4.10- improving - IVF - MRCP to be done Wednesday 01/24 - BILI 3.40- improving Code(s): E80.6 - OTHER DISORDERS OF BILIRUBIN METABOLISM (6) Alcohol dependence Current Visit: No Status: Acute Assessment & Plan: - Advised cessation - Pt states she has not been drinking like she used to but did have a shot on Easter - Will monitor for withdrawl sxs - Tele Code(s): F10.20 - ALCOHOL DEPENDENCE, UNCOMPLICATED (7) History of chronic pancreatitis Current Visit: No Status: Chronic Assessment & Plan: - Lipase normal - Labs reviewed Code(s): Z87.19 - PERSONAL HISTORY OF OTHER DISEASES OF THE DIGESTIVE SYSTEM (8) Anxiety and depression Current Visit: No Status: Chronic Assessment & Plan: - Ativan stopped as she was becoming confused and had resp depression in combination with narcotic pain meds - Will need OP f/u - Clonazepam BID PRN Code(s): F41.9 - ANXIETY DISORDER, UNSPECIFIED; F32.A - DEPRESSION, UNSPECIFIED (9) HTN (hypertension) Current Visit: No Status: Chronic Assessment & Plan: - BP stable - Not currently taking BP meds Code(s): I10 - ESSENTIAL (PRIMARY) HYPERTENSION (10) High anion gap metabolic acidosis Current Visit: Yes Status: Resolved Assessment & Plan: - Resolved - IVF Code(s): E87.29 - OTHER ACIDOSIS (11) Dehydration Current Visit: No Status: Resolved Assessment & Plan: - Resolved - Labs reviewed Code(s): E86.0 - DEHYDRATION (12) Nausea & vomiting Current Visit: Yes Status: Resolved Assessment & Plan: - Resolved - Antiemetic Code(s): R11.2 - NAUSEA WITH VOMITING, UNSPECIFIED (13) Hypokalemia Current Visit: Yes Status: Resolved Assessment & Plan: - K+ 3.1- replaced- trend - tele Code(s): E87.6 - HYPOKALEMIA (14) Hypocalcemia Current Visit: Yes Status: Acute Assessment & Plan: - Corrected Ca+ 8.5 01/22 - Tums stopped - resolved Code(s): E83.51 - HYPOCALCEMIA Code(s): E83.51 - HYPOCALCEMIA (15) Migraine Current Visit: Yes Status: Acute Assessment & Plan: - Reglan and Benadyl VTE: Heparin PPI: Protonix Next of KIN: D/C plan: Saturday? Code status: Full Code(s): G43.909 - MIGRAINE, UNSP, NOT INTRACTABLE, WITHOUT STATUS MIGRAINOSUS
[2025-01-24] MEDS: IMODIUM 2 MG PO PRN (11:29)
--- NOTE | 2025-01-24 16:17 | CONS ---
HISTORY OF PRESENT ILLNESS: Patient came in with some nausea and vomiting, history of cirrhosis in the past, history of some chronic pancreatitis, alcoholic liver disease. She has seen GI for similar issues in the past. She did have a recent EGD and colonoscopy about a month or so ago. She was admitted. She was going to be sent to [facility], but they did not have any beds available. 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 HOME MEDICATIONS: She has been on fluconazole, furosemide, pantoprazole, propranolol, spironolactone prior to admission. Current as listed per NOV. Current medications inpatient, hydrocodone, enoxaparin, folic acid, furosemide, lactobacillus, sodium chloride, loperamide, meloxicam, pantoprazole, propranolol, spironolactone. Some morphine, potassium chloride, and thiamin as well. ALLERGIES: No known drug allergies. PAST SURGICAL HISTORY: She had cholecystectomy in the past, and she did have the recent EGD and colonoscopy in the past month. She did have a cholecystectomy by Dr. Denny Givens a month ago and had an upper endoscopy at that time. She also says she has had a colonoscopy recently. She had some history of some dysphagia of the esophagus, fulguration site healed at that time per his report, with Dr. Denny Givens, had endoscopy at that time. SOCIAL HISTORY: History of smoking and alcohol use daily. FAMILY HISTORY: Negative in regards to this specific problem. She has a family history of father having known hypertension. REVIEW OF SYSTEMS: Twelve systems reviewed. As noted per history and physical/admission assessment. She says she feels much better. She is tolerating p.o. now. She has a little bit of loose stools still, but her nausea and vomiting has resolved and she is feeling much better. She had some right upper quadrant pain radiating to her back, but this has improved too. Other systems negative or noncontributory except as noted above. PHYSICAL EXAMINATION: VITAL SIGNS: Her temperature is 97.8, pulse has been 91 to 100, blood pressure 142/99, pulse ox 98% on room air. GENERAL: No acute distress. HEENT: Sclerae are trace icterus. Extraocular movements intact. NECK: No JVD. CARDIOVASCULAR: Regular pulse. RESPIRATORY: Equal excursion, nonlabored breathing. ABDOMEN: Soft. No peritoneal signs. She did have some right upper quadrant tenderness radiating to back that is improved now. PSYCHIATRIC: Appropriate mood and affect. EXTREMITIES: No edema. NEUROLOGIC: Alert. Moving extremities symmetrically. LABORATORY DATA AND TESTS: She has had a bilirubin of 4.4, actually has elevated direct at 3.4. She has an MRCP pending. She did have gallstones at the time of her cholecystectomy by Dr. Denny Givens a month or so ago. It is possible that she could have some choledocholithiasis. Her white count is 7.6 today, hemoglobin stable. Otherwise, bilirubin 4.4, direct 3.4, AST 254, ALT 66, alkaline phosphatase 368. White count 7.6, hemoglobin 10.5, platelets 290,000. ASSESSMENT: History of nausea, vomiting, diarrhea. Recent lap abdirashid , egd per DR Brenda Givens, Nausea and vomiting are improved. Has a little bit of loose stools. She is feeling much better. The pain is improved. She does have elevated bilirubin, whether this is related to her liver disease from her alcohol or whether this is a possibility she could have a retained stone in the bile duct system. She does have an MRCP that is pending at this time. There was a delay because she had ankle monitoring bracelet that had to be removed by the community corrections here. Otherwise, she does not need any acute surgical intervention at this time. She is feeling better. If the MRCP is negative, she likely can be released and follow up with her GI doctor managing her liver disease, as she has already had a recent EGD, colonoscopy, and cholecystectomy. If she does have evidence of any choledocholithiasis or any other lesion in her ductal system, would recommend transfer to tertiary center for evaluation for ERCP as well as liver cirrhosis but no emergent general surgery intervention indicated at this time, as she has already had her gallbladder out and she has already had a recent EGD and colonoscopy. She understands. I am seeing this patient for Guillermo Adames DO, who is on-call for our group this week and he asked that I check on this patient as he is tied up elsewhere. Otherwise, again, no acute surgical intervention necessary. Await MRCP results. Again, I am seeing this patient for Dr. Adames.
[2025-01-25 04:50] LABS: Hematocrit 32.7 % (34.1-44.9); Hemoglobin 10.5 g/dL (11.2-15.7); Mean Cell Volume 98.8 fL (79.4-94.8); Mean Corpuscular Hemoglobin 31.7 pg (25.6-32.2); Mean Corpuscular Hgb Concent. 32.1 g/dL (32.2-35.5); Mean Platelet Volume 10.1 fL (9.4-12.3); Platelet Count 363 x10^3/uL (182-369); Red Blood Count 3.31 x10^6/uL (3.93-5.22); Red Cell Distribution Width 15.8 % (11.7-14.4); White Blood Count 9.5 x10^3/uL (3.98-10.04)
--- NOTE | 2025-01-25 04:59 | PCM.NOTE ---
Date and Time: 01/25/25 0454 Subjective Assessment: Ms. Sanders is a 34-year-old female with a pmhx of HTN, chronic migraines, alcoholic liver disease, chronic pancreatitis, alcohol dependence, and anxiety/depression who presented on 01/20/25, with a five-day history of nausea, vomiting, diarrhea, right upper quadrant abdominal pain, and inability to tolerate oral intake. Upon arrival, she was tachycardic with a heart rate of 135. Labs remarkable for leukocytosis, hypokalemia, elevated BUN with preserved renal function, an elevated lactic acid of 7.0 mmol/L, and a high anion gap metabolic acidosis. Imaging studies included a CT scan of the abdomen and pelvis, which demonstrated findings consistent with fatty hepatomegaly without evidence of ascites, intra-abdominal infection, or biliary obstruction. Abdominal ultrasound similarly revealed fatty liver infiltration without ascites or biliary dilation. Given the persistence of her symptoms and rising bilirubin levels, an MRCP has been ordered to further assess for possible biliary pathology. During hospitalization, the patient received cautious intravenous fluid resuscitation . Electrolyte abnormalities were corrected, and IV narcotic pain management was transitioned to oral opioids as oral intake improved. Her anion gap metabolic acidosis, hypokalemia, nausea, vomiting, and diarrhea subsequently resolved. Liver enzymes and bilirubin, initially worsening, began to show modest improvement with supportive care. However, lactic acid levels remained persistently elevated despite fluid resuscitation, necessitating ongoing monitoring and additional boluses. The patient declined transfer to a higher level of care despite discussion regarding potential need for advanced gastroenterology services. At present, her abdominal pain is improved, oral intake is adequate, and laboratory parameters are trending toward stabilization, though liver function tests and lactate remain abnormal. She will require close outpatient follow-up with her gage designer following discharge, and pending MRCP results will guide further management of her alcoholic liver disease and hyperbilirubinemia. Objective Data Vital Signs: Vital Signs - 24 hr Temp Pulse Resp BP Pulse Ox 01/25/25 04:00 98.8 F 104 H 19 113/72 97 01/25/25 00:00 97.0 F 105 H 18 119/81 97 01/24/25 20:00 97.9 F 110 H 17 131/92 99 01/24/25 19:00 107 H 01/24/25 16:00 97.6 F 107 H 16 118/86 95 01/24/25 11:59 98.6 F 107 H 16 107/73 94 L 01/24/25 07:19 97.5 F 112 H 16 117/83 98 Pain Assessment - Last Documented Pain Intensity 3 Pain Scale Used 0-10 Pain Scale Intake and Output: Intake & Output 01/22/25 01/23/25 01/24/25 01/25/25 11:59 11:59 11:59 11:59 Intake Total 6402 5703 2437 2145 Balance 6402 5707 2435 2140 Weight 52.7 kg Lab Results: Lab Results-Last 24 Hours 01/24/25 01/24/25 01/24/25 Range/Units 05:20 05:48 05:48 WBC 7.8 (3.98-10.04) x10^3/uL RBC 3.22 L (3.93-5.22) x10^6/uL Hgb 10.3 L (11.2-15.7) g/dL Hct 31.9 L (34.1-44.9) % MCV 99.1 H (79.4-94.8) fL MCH 32.0 (25.6-32.2) pg MCHC 32.3 (32.2-35.5) g/dL RDW 15.9 H (11.7-14.4) % Plt Count 314 (182-369) x10^3/uL MPV 10.1 (9.4-12.3) fL Sodium 141 (135-145) mmol/L Potassium 3.1 L (3.5-5.1) mmol/L Chloride 106 (98-107) mmol/L Carbon Dioxide 22 (22-30) mmol/L Anion Gap 16.7 H (5-15) MEQ/L BUN < 2 L (7-17) mg/dL Creatinine 0.42 L (0.52-1.04) mg/dL Estimated GFR 130.7 ML/MIN Glucose 114 H (74-106) mg/dL Lactic Acid 5.7 H (0.4-2.0) Calcium 7.4 L (8.4-10.2) mg/dL Total Bilirubin 3.40 H (0.2-1.3) mg/dL AST 213 H (14-36) U/L ALT 60 H (0-35) U/L Alkaline Phosphatase 335 H (38-126) U/L Serum Total Protein 5.3 L (6.3-8.2) g/dL Albumin 2.6 L (3.5-5.0) g/dL 01/24/25 01/24/25 01/25/25 Range/Units 12:00 15:40 04:47 WBC (3.98-10.04) x10^3/uL RBC (3.93-5.22) x10^6/uL Hgb (11.2-15.7) g/dL Hct (34.1-44.9) % MCV (79.4-94.8) fL MCH (25.6-32.2) pg MCHC (32.2-35.5) g/dL RDW (11.7-14.4) % Plt Count (182-369) x10^3/uL MPV (9.4-12.3) fL Sodium (135-145) mmol/L Potassium 3.8 D 4.3 (3.5-5.1) mmol/L Chloride (98-107) mmol/L Carbon Dioxide (22-30) mmol/L Anion Gap (5-15) MEQ/L BUN (7-17) mg/dL Creatinine (0.52-1.04) mg/dL Estimated GFR ML/MIN Glucose (74-106) mg/dL Lactic Acid 3.8 H (0.4-2.0) Calcium (8.4-10.2) mg/dL Total Bilirubin (0.2-1.3) mg/dL AST (14-36) U/L ALT (0-35) U/L Alkaline Phosphatase (38-126) U/L Serum Total Protein (6.3-8.2) g/dL Albumin (3.5-5.0) g/dL Radiology Exams: Radiology Procedures Category Date Time Status MRI ABDOMEN WITH CONTRAST [MRI] Routine Exams 01/25/25 08:00 Ordered Medications: Medications Generic Name Dose Route Start Last Admin Trade Name Freq PRN Reason Stop Dose Admin Hydrocodone Bitart/Acetaminophen 1 tablet 01/22/25 09:53 01/24/25 23:34 Hydrocodone/Acetamin 10-325 Mg Tablet PO 01/27/25 09:52 1 tablet Q6H PRN PRN Administration PAIN Clonazepam 0.5 mg 01/22/25 21:56 01/24/25 23:34 Clonazepam 0.5 Mg Tablet PO 02/21/25 21:55 0.5 mg BID PRN PRN Administration ANXIETY Enoxaparin Sodium 40 mg 01/20/25 10:00 01/24/25 09:56 Enoxaparin Sodium 40 Mg/0.4 Ml Syringe SQ 02/19/25 09:59 40 mg DAILY DANE Administration Folic Acid 1 mg 01/20/25 10:00 01/24/25 09:56 Folic Acid 1 Mg Tablet PO 02/19/25 09:59 1 mg DAILY DANE Administration Furosemide 40 mg 01/20/25 10:00 01/20/25 10:09 Furosemide 40 Mg Tablet PO 02/19/25 09:59 40 mg DAILY DANE Administration Lactobacillus Acidophilus 1 tab 01/20/25 10:00 01/24/25 09:55 Lactobacillus Acidophilus 1 Tab Tablet PO 02/19/25 09:59 1 tab DAILY DANE Administration Loperamide HCl 2 mg 01/21/25 10:32 01/24/25 11:29 Loperamide Hcl 2 Mg Capsule PO 02/20/25 10:31 2 mg PRN PRN Administration DIARRHEA Naloxone HCl 0.4 mg 01/20/25 13:40 Naloxone Hcl 0.4 Mg/Ml Ml IV 02/19/25 13:39 PRN PRN RESPIRATORY DEPRESSION Pantoprazole Sodium 40 mg 01/19/25 22:45 01/24/25 22:32 Pantoprazole 40 Mg Vial IV 02/18/25 22:44 40 mg Q24H DANE Administration Propranolol HCl 20 mg 01/20/25 10:00 01/24/25 22:32 Propranolol Hcl 20 Mg Tablet PO 02/19/25 09:59 20 mg BID DANE Administration Spironolactone 25 mg 01/20/25 10:00 01/24/25 09:56 Spironolactone 25 Mg Tablet PO 02/19/25 09:59 25 mg DAILY DANE Administration Discontinued Medications Generic Name Dose Route Start Last Admin Trade Name Freq PRN Reason Stop Dose Admin Hydrocodone Bitart/Acetaminophen 1 tab 01/22/25 09:18 Hydrocodone/Apap 5/325 1 Tab Tablet PO 01/27/25 09:17 QID PRN PRN PAIN Calcium Carbonate/Glycine 750 mg 01/20/25 10:00 01/22/25 09:08 Calcium Carbonate 750 Mg 750 Mg Tab.Chew PO 02/19/25 09:59 750 mg BID DANE Administration Diphenhydramine HCl 25 mg 01/20/25 09:46 01/20/25 10:09 Diphenhydramine Hcl 25 Mg Capsule PO 01/20/25 09:47 25 mg STAT ONE Administration Diphenhydramine HCl 25 mg 01/24/25 08:14 01/24/25 08:36 Diphenhydramine Hcl 25 Mg Capsule PO 01/24/25 08:15 25 mg ONCE ONE Administration Heparin Sodium (Beef Lung) 5,000 unit 01/21/25 22:00 Heparin 5000 Units/0.5 Ml 5,000 Unit/0.5 Ml Syr SQ 02/20/25 21:59 BID DANE Hydromorphone HCl 0.5 mg 01/19/25 20:39 01/19/25 20:50 Hydromorphone 1 Mg/1ml Inj IV 01/19/25 20:40 0.5 mg STAT ONE Administration Hydromorphone HCl Confirm 01/19/25 20:49 Hydromorphone 1 Mg/1ml Inj Administered 01/19/25 20:50 Dose 1 mg .ROUTE .STK-MED ONE Sodium Chloride 1,000 mls @ 999 mls/hr 01/19/25 17:45 01/19/25 18:56 Sodium Chloride 0.9% 1000 Ml IV 01/19/25 18:45 Infused .Q1H1M STA Infusion Sodium Chloride Confirm 01/19/25 17:53 Sodium Chloride 0.9% 1000 Ml Administered 01/19/25 17:54 Dose 1,000 mls @ ud .ROUTE .STK-MED ONE Magnesium Sulfate/Dextrose 100 mls @ 100 mls/hr 01/19/25 19:00 01/19/25 20:20 Magnesium 1 Gm / 100 Ml D5w IV 01/19/25 20:59 Infused Q1H DANE Infusion Potassium Chloride 20 meq in 100 mls @ 50 mls/hr 01/19/25 19:00 01/19/25 22:38 Potassium Chloride 20 Meq In Water 100ml IV 01/19/25 22:59 50 mls/hr Q2H DANE Administration Lactated Ringer's 1,000 mls @ 150 mls/hr 01/19/25 19:58 01/19/25 20:05 Lactated Ringers IV 01/20/25 02:37 150 mls/hr .Q6H40M STA Administration Lactated Ringer's Confirm 01/19/25 20:02 Lactated Ringers Administered 01/19/25 20:03 Dose 1,000 mls @ ud IV .STK-MED ONE Magnesium Sulfate/Dextrose Confirm 01/19/25 18:57 Magnesium 1 Gm / 100 Ml D5w Administered 01/19/25 18:58 Dose 100 mls @ ud IV .STK-MED ONE Magnesium Sulfate/Dextrose Confirm 01/19/25 19:49 Magnesium 1 Gm / 100 Ml D5w Administered 01/19/25 19:50 Dose 100 mls @ ud IV .STK-MED ONE Potassium Chloride Confirm 01/19/25 22:25 Potassium Chloride 20 Meq In Water 100ml Administered 01/19/25 22:26 Dose 100 mls @ ud IV .STK-MED ONE Dextrose/Lactated Ringer's 1,000 mls @ 100 mls/hr 01/19/25 23:00 01/21/25 23:19 Dextrose 5%-Lr Iv Solution 1000 Ml IV 02/18/25 22:59 Not Given .Q10H DANE Sodium Chloride 500 mls @ 500 mls/hr 01/19/25 22:52 01/19/25 23:08 Sodium Chloride 0.9% 500 Ml IV 01/19/25 23:51 500 mls/hr .Q1H ONE Administration Potassium Chloride 20 meq in 100 mls @ 50 mls/hr 01/20/25 01:00 01/20/25 03:53 Potassium Chloride 20 Meq In Water 100ml IV 01/20/25 04:59 50 mls/hr Q2H DANE Administration Sodium Chloride 1,000 mls @ 999 mls/hr 01/20/25 01:15 01/20/25 01:29 Sodium Chloride 0.9% 1000 Ml IV 01/20/25 02:15 999 mls/hr .Q1H1M ONE Administration Sodium Chloride 1,000 mls @ 999 mls/hr 01/21/25 08:55 01/21/25 09:14 Sodium Chloride 0.45% 1000 Ml IV 01/21/25 09:55 999 mls/hr .Q1H1M ONE Administration Sodium Chloride 500 mls @ 500 mls/hr 01/21/25 08:57 01/21/25 11:14 Sodium Chloride 0.9% 500 Ml IV 01/21/25 09:56 500 mls/hr .Q1H ONE Administration Sodium Chloride 1,000 mls @ 75 mls/hr 01/21/25 12:15 01/24/25 23:34 Sodium Chloride 0.9% 1000 Ml IV 02/20/25 12:14 75 mls/hr .[id number] DANE Administration Sodium Chloride 500 mls @ 500 mls/hr 01/22/25 07:27 01/22/25 08:21 Sodium Chloride 0.9% 500 Ml IV 01/22/25 08:26 500 mls/hr .Q1H ONE Administration Sodium Chloride 1,000 mls @ 999 mls/hr 01/22/25 07:27 01/22/25 08:22 Sodium Chloride 0.9% 1000 Ml IV 01/22/25 08:27 999 mls/hr .Q1H1M STA Administration Sodium Chloride 1,000 mls @ 999 mls/hr 01/22/25 17:18 01/22/25 18:05 Sodium Chloride 0.9% 1000 Ml IV 01/22/25 18:18 999 mls/hr .Q1H1M STA Administration Sodium Chloride 500 mls @ 500 mls/hr 01/22/25 17:18 01/22/25 18:50 Sodium Chloride 0.9% 500 Ml IV 01/22/25 18:17 500 mls/hr .Q1H ONE Administration Sodium Chloride 1,000 mls @ 999 mls/hr 01/23/25 09:39 01/23/25 15:22 Sodium Chloride 0.9% 1000 Ml IV 01/23/25 10:39 999 mls/hr .Q1H1M STA Administration Sodium Chloride 1,000 mls @ 999 mls/hr 01/23/25 16:15 01/23/25 19:39 Sodium Chloride 0.9% 1000 Ml IV 02/22/25 16:14 Not Given .Q1H1M DANE Sodium Chloride 1,000 mls @ 999 mls/hr 01/24/25 07:28 01/24/25 08:03 Sodium Chloride 0.9% 1000 Ml IV 01/24/25 08:28 999 mls/hr .Q1H1M STA Administration Sodium Chloride 1,000 mls @ 999 mls/hr 01/24/25 08:45 01/24/25 09:12 Sodium Chloride 0.9% 1000 Ml IV 01/24/25 09:45 999 mls/hr .Q1H1M DANE Administration Lorazepam 1 mg 01/19/25 22:54 01/20/25 13:19 Lorazepam 2 Mg/1 Ml 2 Mg Vial IV 02/18/25 22:53 1 mg Q2H PRN PRN Administration ANXIETY/AGITATION Lorazepam 1 mg 01/21/25 01:45 01/21/25 03:01 Lorazepam 2 Mg/1 Ml 2 Mg Vial IV 01/21/25 01:46 1 mg 1XONLY ONE Administration Metoclopramide HCl 10 mg 01/19/25 18:54 01/19/25 19:09 Metoclopramide Hcl 10 Mg/2 Ml Vial IV 01/19/25 18:55 10 mg STAT ONE Administration Metoclopramide HCl Confirm 01/19/25 18:57 Metoclopramide Hcl 10 Mg/2 Ml Vial Administered 01/19/25 18:58 Dose 10 mg .ROUTE .STK-MED ONE Metoclopramide HCl 10 mg 01/24/25 08:14 01/24/25 08:36 Metoclopramide Hcl 10 Mg Tablet PO 01/24/25 08:15 10 mg ONCE ONE Administration Morphine Sulfate 4 mg 01/19/25 18:54 01/19/25 19:07 Morphine Sulfate 4 Mg/Ml Injection IV 01/19/25 18:55 4 mg STAT ONE Administration Morphine Sulfate Confirm 01/19/25 18:57 Morphine Sulfate 4 Mg/Ml Injection Administered 01/19/25 18:58 Dose 4 mg .ROUTE .STK-MED ONE Morphine Sulfate 2 mg 01/19/25 22:42 01/22/25 09:13 Morphine Sulfate 2 Mg/Ml Inj IV 01/23/25 22:41 2 mg Q4H PRN PRN Administration SEVERE PAIN Ondansetron HCl 4 mg 01/19/25 17:45 01/19/25 17:54 Ondansetron Hcl 4 Mg/2 Ml Vial IV 01/19/25 17:46 4 mg STAT ONE Administration Ondansetron HCl Confirm 01/19/25 17:53 Ondansetron Hcl 4 Mg/2 Ml Vial Administered 01/19/25 17:54 Dose 4 mg .ROUTE .STK-MED ONE Potassium Chloride 20 meq 01/20/25 07:47 01/20/25 10:09 Potassium Chloride Tab 10 Meq Tab PO 01/20/25 07:48 20 meq STAT ONE Administration Potassium Chloride Confirm 01/20/25 10:03 Potassium Chloride Tab 10 Meq Tab Administered 01/20/25 10:04 Dose 20 meq .ROUTE .STK-MED ONE Potassium Chloride 20 meq 01/24/25 07:45 01/24/25 13:25 Potassium Chloride Tab 10 Meq Tab PO 01/24/25 13:46 20 meq Q2H DANE Administration Thiamine HCl 100 mg 01/19/25 22:55 01/19/25 23:07 Thiamine Hcl 200 Mg/2 Ml Vial IV 01/19/25 22:56 100 mg STAT ONE Administration Assessment/Plan (1) Abdominal pain Current Visit: Yes Status: Acute Assessment & Plan: - CBC. CMP reviewed - Tbili and LFTs remain elevated though stable showing some improvement - US and CT abdomen reviewed showing Fatty hepatomegaly - IVF - Change narcotic IV pain meds to PO as pt tolerating PO intake well. - Resolved - MRCP pending Code(s): R10.9 - UNSPECIFIED ABDOMINAL PAIN (2) Diarrhea Current Visit: Yes Status: Acute Assessment & Plan: - C-diff negative - Probiotics - Imodium - Improved Code(s): R19.7 - DIARRHEA, UNSPECIFIED (3) Elevated lactic acid level Current Visit: Yes Status: Acute Assessment & Plan: - lactic acid level reviewed at 3.8 < 5.7-trend - CBC, CMP reviewed - 2:2 liver cirrhosis - Monitor for fluid overload with multiple IVF bolus -MRCP planned for today Code(s): R79.89 - OTHER SPECIFIED ABNORMAL FINDINGS OF BLOOD CHEMISTRY (4) Hyperbilirubinemia Current Visit: Yes Status: Acute Assessment & Plan: - US and CT reviewed as stated above -Reviewed Tbili at 5.3 on admission - trend - IVF - Surg consult - MRCP pending -Bili level reviewed at 3.60>3.40<4.10 Code(s): E80.6 - OTHER DISORDERS OF BILIRUBIN METABOLISM (5) Hypocalcemia Current Visit: Yes Status: Acute Assessment & Plan: -resolved Code(s): E83.51 - HYPOCALCEMIA (6) High anion gap metabolic acidosis Current Visit: Yes Status: Resolved Assessment & Plan: - Resolved - IVF Code(s): E87.29 - OTHER ACIDOSIS (7) Nausea & vomiting Current Visit: Yes Status: Resolved Assessment & Plan: - Resolved - Antiemetic prn Code(s): R11.2 - NAUSEA WITH VOMITING, UNSPECIFIED (8) Alcohol dependence Current Visit: No Status: Acute Assessment & Plan: - Advised cessation - Pt states she has not been drinking like she used to but did have a shot on Easter Code(s): F10.20 - ALCOHOL DEPENDENCE, UNCOMPLICATED (9) Hypokalemia Current Visit: No Status: Acute Assessment & Plan: - Resolved potassium reviewed at 4.1- replenished 01/24/25 -monitor renal/lytes Code(s): E87.6 - HYPOKALEMIA (10) Anxiety and depression Current Visit: No Status: Chronic Assessment & Plan: - Ativan stopped as she was becoming confused and had resp depression in combination with narcotic pain meds - Will need OP f/u - Clonazepam BID PRN Code(s): F41.9 - ANXIETY DISORDER, UNSPECIFIED; F32.A - DEPRESSION, UNSPECIFIED (11) HTN (hypertension) Current Visit: No Status: Chronic Assessment & Plan: - BP stable - Not currently taking BP meds VTE: Heparin PPI: Protonix Next of KIN: D/C plan:pending MRCP results Code status: Full Code(s): I10 - ESSENTIAL (PRIMARY) HYPERTENSION (12) History of chronic pancreatitis Current Visit: No Status: Chronic Assessment & Plan: -Noted - no signs of acute flair on imaging - lipase WNL on admission Code(s): Z87.19 - PERSONAL HISTORY OF OTHER DISEASES OF THE DIGESTIVE SYSTEM (13) Transaminitis Current Visit: Yes Status: Acute Assessment & Plan: -LFTs reviewed and stable - AST at 220>213; ALT at 59<60 -Abdominal US and CT as stated above -MRCP planned for today Code(s): R74.01 - ELEVATION OF LEVELS OF LIVER TRANSAMINASE LEVELS (14) Dehydration Current Visit: No Status: Resolved Assessment & Plan: -Resolved Code(s): E86.0 - DEHYDRATION (15) Hypomagnesemia Current Visit: Yes Status: Acute Assessment & Plan: -Mag level reviewed at 1.4 - will replenish Code(s): E83.42 - HYPOMAGNESEMIA
[2025-01-25 05:09] LABS: ALBUMIN 2.6 g/dL (3.5-5.0); ALKALINE PHOSPHATASE 338 U/L (38-126); ANION GAP 12.5 MEQ/L (5-15); CHLORIDE 105 mmol/L (98-107); Calcium 8.1 mg/dL (8.4-10.2); Carbon Dioxide 23 mmol/L (22-30); Creatinine 1 0.48 mg/dL (0.52-1.04); EST GLOMERULAR FILTRATION RATE 126.6 ML/MIN; Glucose 101 mg/dL (74-106); MAGNESIUM 1.4 mg/dL (1.6-2.3); Potassium 4.1 mmol/L (3.5-5.1); SGOT/AST 220 U/L (14-36); SGPT/ALT 59 U/L (0-35); SODIUM 137 mmol/L (135-145); Total Protein 5.5 g/dL (6.3-8.2)
[2025-01-25 05:19] LABS: BLOOD UREA NITROGEN < 2 mg/dL (7-17)
[2025-01-25 08:23] VITALS: RESP 18
[2025-01-25] MEDS: Hydromorphone 1 mg/ml Injection IV ONE ×2 (08:35→15:37)
[2025-01-25] MEDS: MAGNESIUM SULF 2 G/50 ML BAG 2 GM/50 ML PIGGYBACK IV ONE (08:49)
[2025-01-25] MEDS: VITAMIN B-1 100 MG PO SCH (09:35)
[2025-01-25] MEDS: THERAGRAN MULTIVITAMIN PO SCH (09:35)
--- NOTE | 2025-01-25 11:26 | XRAY ---
Indication: Ascites. Cirrhosis. 4 quadrant abdominal sonogram performed. Right upper quadrant demonstrates tiny 1-2 mm perihepatic fluid. Otherwise no focal solid/cystic soft tissue mass or abnormal fluid collection.
[2025-01-25 12:01] VITALS: TEMP 97.8
--- NOTE | 2025-01-25 12:02 | PCM.DS ---
Discharge Summary Date of Admission: 01/19/25 21:53 Date of Discharge: 01/25/25 Admitting Physician: TYLOR HELLER MD Consults: Consults on Case 01/22/25 11:13 Consult Surgery ROUTINE Primary Care Provider: DORA RIVERA Allergies Allergies No Known Drug Allergies Allergy (Verified 01/19/25 17:39) Hospital Summary - Hospital Course Hospital Course: Ms. Sanders is a 34 year old female with a pmhx of hypertension, chronic migraines, alcoholic liver disease, chronic pancreatitis, alcohol dependence, and anxiety/depression, who presented on 01/20/25 with a five-day history of nausea, vomiting, diarrhea, right upper quadrant abdominal pain, and inability to tolerate oral intake. On arrival, she was tachycardic with a heart rate of 135 bpm. Initial laboratory studies were notable for leukocytosis, hypokalemia, elevated BUN with preserved renal function, elevated lactic acid at 7.0 mmol/L, and a high anion gap metabolic acidosis. Imaging studies, including a CT scan of the abdomen and pelvis and an abdominal ultrasound, demonstrated fatty hepatomegaly without evidence of ascites, intra-abdominal infection, or biliary obstruction. Supportive management was initiated, including cautious intravenous fluid resuscitation, correction of electrolyte abnormalities, antiemetic therapy, and pain control with transition from intravenous to oral opioids as oral intake improved. The patients high anion gap metabolic acidosis, hypokalemia, nausea, vomiting, and diarrhea subsequently resolved with treatment. Despite improvement in her gastrointestinal symptoms and stabilization of renal function, liver enzymes and bilirubin levels remained elevated, and lactic acid levels persisted despite volume resuscitation. Given the persistence of laboratory derangements and concern for potential underlying biliary pathology, an MRCP was ordered and is pending at the time of transfer. Additionally, a venous Doppler study of the bilateral lower extremities was ordered for evaluation of new-onset lower extremity edema, with results pending. The patient initially declined transfer to a higher level of care despite discussion regarding the need for advanced gastroenterology evaluation but later agreed. She has been accepted for transfer to [facility] under the care of Dr. Hair. At the time of transfer, the patient's abdominal pain had improved, oral intake was adequate, and laboratory parameters, although trending toward stabilization, remained abnormal with persistent transaminitis, hyperbilirubinemia, and elevated lactate requiring further evaluation and management. I spent 35 minutes [id number] with the patient on the day of discharge performing discharge exam, discussing hospital stay and discharge instructions with patient and caregivers, preparation of discharge records, prescriptions & referral forms and addressing any questions/concerns the patient had as documented above. - Vitals & Intake/Output Vital Signs: Vital Signs Temperature 98.7 F 01/25/25 08:00 Pulse Rate 93 H 01/25/25 08:00 Respiratory Rate 18 01/25/25 08:00 Blood Pressure 124/77 01/25/25 08:00 O2 Sat by Pulse Oximetry 96 01/25/25 08:00 Intake & Output: Intake & Output 01/22/25 01/23/25 01/24/25 01/25/25 11:59 11:59 11:59 11:59 Intake Total 6402 3755 243 2145 Balance 6401 5704 243 2147 Weight 52.7 kg - Lab Result Diagrams: 01/25/25 04:17 01/25/25 04:17 Lab Results-Last 24 Hrs: Lab Results-Last 24 Hours 01/24/25 01/24/25 01/25/25 Range/Units 12:00 15:40 04:17 WBC 9.5 (3.98-10.04) x10^3/uL RBC 3.31 L (3.93-5.22) x10^6/uL Hgb 10.5 L (11.2-15.7) g/dL Hct 32.7 L (34.1-44.9) % MCV 98.8 H (79.4-94.8) fL MCH 31.7 (25.6-32.2) pg MCHC 32.1 L (32.2-35.5) g/dL RDW 15.8 H (11.7-14.4) % Plt Count 363 (182-369) x10^3/uL MPV 10.1 (9.4-12.3) fL Sodium (135-145) mmol/L Potassium 3.8 D 4.3 (3.5-5.1) mmol/L Chloride (98-107) mmol/L Carbon Dioxide (22-30) mmol/L Anion Gap (5-15) MEQ/L BUN (7-17) mg/dL Creatinine (0.52-1.04) mg/dL Estimated GFR ML/MIN Glucose (74-106) mg/dL Lactic Acid (0.4-2.0) Calcium (8.4-10.2) mg/dL Magnesium (1.6-2.3) mg/dL Total Bilirubin (0.2-1.3) mg/dL AST (14-36) U/L ALT (0-35) U/L Alkaline Phosphatase (38-126) U/L Serum Total Protein (6.3-8.2) g/dL Albumin (3.5-5.0) g/dL 01/25/25 01/25/25 Range/Units 04:17 04:47 WBC (3.98-10.04) x10^3/uL RBC (3.93-5.22) x10^6/uL Hgb (11.2-15.7) g/dL Hct (34.1-44.9) % MCV (79.4-94.8) fL MCH (25.6-32.2) pg MCHC (32.2-35.5) g/dL RDW (11.7-14.4) % Plt Count (182-369) x10^3/uL MPV (9.4-12.3) fL Sodium 137 (135-145) mmol/L Potassium 4.1 (3.5-5.1) mmol/L Chloride 105 (98-107) mmol/L Carbon Dioxide 23 (22-30) mmol/L Anion Gap 12.5 (5-15) MEQ/L BUN < 2 L (7-17) mg/dL Creatinine 0.48 L (0.52-1.04) mg/dL Estimated GFR 126.6 ML/MIN Glucose 101 (74-106) mg/dL Lactic Acid 3.8 H (0.4-2.0) Calcium 8.1 L (8.4-10.2) mg/dL Magnesium 1.4 L (1.6-2.3) mg/dL Total Bilirubin 3.60 H (0.2-1.3) mg/dL AST 220 H (14-36) U/L ALT 59 H (0-35) U/L Alkaline Phosphatase 338 H (38-126) U/L Serum Total Protein 5.5 L (6.3-8.2) g/dL Albumin 2.6 L (3.5-5.0) g/dL - Radiology Exams Ordered Rad Exams-Entire Visit: Radiology Procedures Category Date Time Status ABDOMINAL-LIMITED [US] Routine Exams 01/25/25 08:09 Completed VENOUS BILATERAL EXTREMITY [US] Urgent Exams 01/25/25 10:27 Ordered - Procedures and Test Procedures and Tests throughout Hospitalization: Therapy Orders & Screens 01/19/25 22:54 Respiratory Therapy Assessment DAILY Comment: Diagnosis: Nausea, vomiting, hypokalemia. liver cirrhosis 01/20/25 00:14 Smoking Cessation Education ONCE Comment: Diagnosis: Nausea, vomiting, hypokalemia. liver cirrhosis Smoking Status: Current every day smoker How long have you smoked: 3 yrs Have you smoked in the past 12 months: Yes Approximately how many cigarettes per day: Vape Do you dip or chew tobacco: No If,Former Smoker,when did you quit: 4 yrs ago 01/20/25 01:15 EKG ROUTINE Comment: Diagnosis: Nausea, vomiting, hypokalemia. liver cirrhosis Oxygen Nasal Cannula 2 lpm Comment: Diagnosis: Nausea, vomiting, hypokalemia. liver cirrhosis 01/20/25 07:30 ST Screen per Nursing Assess ONCE Comment: Protocol Order Physician Instructions: Greater than [address] Admission Screening Reason For Exam: Triggered on Admission Diagnosis: Nausea, vomiting, hypokalemia. liver cirrhosis CVA/Dysphagia/Aphasia: No Cognitive Deficits: No Dehydration/Nutrition Deficit: Yes Reflux: No Oral-Motor Difficulties: No Pneumonia: No Residential Resident: No Total Points: 5 Discharge Exam General Appearance: no apparent distress Neurologic Exam: alert, oriented x 3, cooperative Eye Exam: PERRL Ears, Nose, Throat Exam: normal ENT inspection Neck Exam: normal inspection Respiratory Exam: normal breath sounds, lungs clear Cardiovascular Exam: regular rate/rhythm, normal heart sounds Gastrointestinal/Abdomen Exam: distention Pelvic Exam: deferred Rectal Exam: deferred Back Exam: normal inspection Extremity Exam: swelling (BLE +2 pitting) Skin Exam: normal color Final Diagnosis/Problem List - Final Discharge Diagnosis/Problem (1) Abdominal pain Current Visit: Yes Status: Acute Code(s): R10.9 - UNSPECIFIED ABDOMINAL PAIN (2) Diarrhea Current Visit: Yes Status: Acute Code(s): R19.7 - DIARRHEA, UNSPECIFIED (3) Elevated lactic acid level Current Visit: Yes Status: Acute Code(s): R79.89 - OTHER SPECIFIED ABNORMAL FINDINGS OF BLOOD CHEMISTRY (4) Hyperbilirubinemia Current Visit: Yes Status: Acute Code(s): E80.6 - OTHER DISORDERS OF BILIRUBIN METABOLISM (5) Hypocalcemia Current Visit: Yes Status: Acute Code(s): E83.51 - HYPOCALCEMIA (6) High anion gap metabolic acidosis Current Visit: Yes Status: Resolved Code(s): E87.29 - OTHER ACIDOSIS (7) Nausea & vomiting Current Visit: Yes Status: Resolved Code(s): R11.2 - NAUSEA WITH VOMITING, UNSPECIFIED (8) Alcohol dependence Current Visit: No Status: Chronic Code(s): F10.20 - ALCOHOL DEPENDENCE, UNCOMPLICATED (9) Hypokalemia Current Visit: No Status: Resolved Code(s): E87.6 - HYPOKALEMIA (10) Anxiety and depression Current Visit: No Status: Chronic Code(s): F41.9 - ANXIETY DISORDER, UNSPECIFIED; F32.A - DEPRESSION, UNSPECIFIED (11) HTN (hypertension) Current Visit: No Status: Chronic Code(s): I10 - ESSENTIAL (PRIMARY) HYPERTENSION (12) History of chronic pancreatitis Current Visit: No Status: Chronic Code(s): Z87.19 - PERSONAL HISTORY OF OTHER DISEASES OF THE DIGESTIVE SYSTEM (13) Transaminitis Current Visit: Yes Status: Chronic Code(s): R74.01 - ELEVATION OF LEVELS OF LIVER TRANSAMINASE LEVELS (14) Dehydration Current Visit: No Status: Resolved Code(s): E86.0 - DEHYDRATION (15) Hypomagnesemia Current Visit: Yes Status: Acute Code(s): E83.42 - HYPOMAGNESEMIA - Discharge Discharge Date: 01/25/25 Disposition: Home, Self-Care Condition: Stable Prescriptions: New Lactobacillus Acidophilus [Acidophilus TABLET] 1 tab PO DAILY tablet Enoxaparin Sodium [Enoxaparin Sodium] 40 mg SQ DAILY Folic Acid 1 mg [Folate 1 mg] 1 mg PO DAILY tablet Loperamide HCl 2 mg [Imodium 2 mg] 2 mg PO PRN PRN cap PRN Reason: Diarrhea Naloxone HCl 0.4 mg/ml [Narcan 0.4 MG/ML] 0.4 mg IV PRN PRN PRN Reason: Respiratory Depression Hydrocodone/Acetaminophen [[place] 10-325 mg] 1 tablet PO Q6H PRN PRN tablet PRN Reason: Pain Pantoprazole 40 mg [Protonix 40 mg IV] 40 mg IV Q24H Multivitamins,Therapeutic Tab* [Theragran Multivitamin] 1 tab PO QAM tablet Thiamine HCl 100 mg [Vitamin B-1 100 mg] 100 mg PO DAILY tablet Continue Furosemide 40 mg [Lasix 40 MG] 40 mg PO DAILY Fluconazole [Diflucan] 200 mg PO DAILY Spironolactone 25 mg [Aldactone 25 MG] 25 mg PO DAILY Propranolol HCl [Inderal ] 20 mg PO BID PANTOPRAZOLE 40 mg Tablet [Protonix 40MG Tablet] 40 mg PO BID Follow up with: INNA MURPHY PA [Primary Care Provider, UNKNOWN] - 02/04/25 1:00 pm
--- NOTE | 2025-01-25 13:36 | XRAY ---
Indication: Bilateral edema. Two-dimensional sonogram and color Doppler imaging major venous vessels left and right leg performed. Comparison: None No thrombus seen in the examined deep venous vessels left and right leg including greater saphenous vein. Veins demonstrate normal compressibility. Venous waveforms are normal with and without augmentation. Impression: Left and right legs negative for DVT.
[2025-01-25 16:20] VITALS: BP 112/77; PULSE 107; O2SAT 97
--- NOTE | 2025-01-26 10:02 | PROG NOTE ---
SUBJECTIVE: The patient was seen for Dr. Denny Givens who did a recent cholecystectomy a month or so ago on the patient as well as Dr. Adames who was on-call over the weekend. The patient remained in the hospital. She is mainly complaining of left lower leg swelling and pain. She had persistent elevated liver function tests. They were supposed to do an MRCP on late Saturday but, apparently, it was not done. She is scheduled today but, apparently, the patient declined earlier. She has a history of chronic liver disease and cirrhosis. She has persistently elevated liver function tests. Her bilirubin is a little bit better but it is still 3.6 and elevated as well as her other liver function tests are elevated. She was tolerating p.o. this weekend. OBJECTIVE: VITAL SIGNS: Her heart rate was 94. Blood pressure 126/84. ABDOMEN: Soft. No peritoneal signs. PLAN: She is in the midst of getting a duplex study of her left lower extremity which showed some swelling. They are evaluating her for a DVT. If so, she would need to be anticoagulated, however, she is in the process of being transferred to a higher level of care to be evaluated for GI regarding her liver problems and get their opinion whether they think she has any choledocholithiasis or needs an ERCP or other workup. Either way, she does not need any emergent general surgery or intervention right at this moment. She needs to be transferred to a higher level of care which is in progress according to the nursing staff at this point. Again, the patient was seen for Dr. Adames, who was on-call for our group over the weekend as well as Dr. Denny Givens who did a cholecystectomy and upper endoscopy on patient last month. We will sign off at this time as she is being transferred to a higher level of care.
== END 2025-01-25 18:50 | DRG 392 ==
LOC: ED 17:25 → OBSVTOIN 21:53 → MED SURG 21:53
PROVIDERS: ADMIT Internal Medicine; ATTEND Internal Medicine
DX: R10.9 Unspecified abdominal pain (principal); E87.29 Other acidosis; R19.7 Diarrhea, unspecified; R79.89 Other specified abnormal findings of blood chemistry; E80.6 Other disorders of bilirubin metabolism; E83.51 Hypocalcemia; R11.2 Nausea with vomiting, unspecified; F10.20 Alcohol dependence, uncomplicated; E87.6 Hypokalemia; F41.9 Anxiety disorder, unspecified; F32.A Depression, unspecified; I10 Essential (primary) hypertension; R74.01 Elevation of levels of liver transaminase levels; E86.0 Dehydration; E83.42 Hypomagnesemia; F17.200 Nicotine dependence, unspecified, uncomplicated; K70.30 Alcoholic cirrhosis of liver without ascites; Z87.19 Personal history of other diseases of the digestive system; Z79.899 Other long term (current) drug therapy
CPT/HCPCS: 36415; 74176; 76705; 80048; 80053; 80076; 81001; 82140; 83605; 83690; 83735; 84132; 84484; 84703; 85025; 85027; 85610; 85730; 87493; 93005; 93970; 94760; 96374; 96375; 99285; J1171; J1650; J2060; J2270; J2405; J3475; J3480; Q3014; A9270-GY

== ENCOUNTER 2025-07-18 22:21 | Emergency (ER) | payer BC ==
--- NOTE | 2025-07-18 22:40 | ERPHSYRPT ---
- History of Present Illness Time Seen by Provider: 07/18/25 22:40 Source: patient Exam Limitations: no limitations Physician History: Patient presents to the emergency room with epigastric abdominal pain, back pain and jaundice. Patient also reports nausea and vomiting. She has a history of alcoholic cirrhosis. Patient denies fevers. Allergies/Adverse Reactions: fentanyl Allergy (Intermediate, Verified 07/18/25 22:58) Headache Home Medications: Propranolol HCl [Inderal ] 20 mg PO BID 01/19/25 [History] Spironolactone 25 mg [Aldactone 25 MG] 25 mg PO DAILY 01/19/25 [History] Hx Tetanus, Diphtheria Vaccination/Date Given: Yes Hx Influenza Vaccination/Date Given: No Hx Pneumococcal Vaccination/Date Given: No Travel Risk - Emerging Infectious Disease Are you exhibiting symptoms associated with any current EIDs: Yes Symptoms: Abdominal Pain, Diarrhea, Headaches/Body Aches/, Vomitting - Review of Systems All Other Systems: Reviewed and Negative - Past Medical History Pertinent Past Medical History: Yes Neurological History: Migraines ENT History: No Pertinent History Cardiac History: Hypertension Respiratory History: No Pertinent History Endocrine Medical History: Liver Disease Musculoskeletal History: No Pertinent History GI Medical History: Gallbladder Disease, Pancreatitis History: No Pertinent History Psycho-Social History: Anxiety, Bipolar, Depression, Other Female Reproductive Disorders: No Pertinent History Other Medical History: multiple personality disorder, alcoholism - Past Surgical History Past Surgical History: Yes Neuro Surgical History: No Pertinent History Cardiac: No Pertinent History Respiratory: No Pertinent History Gastrointestinal: Cholecystectomy Genitourinary: No Pertinent History Musculoskeletal: No Pertinent History Female Surgical History: No Pertinent History Significant Family History: no pertinent family hx (No family history pertaining to this admission reported), hypertension (father) - Female History Hx Last Menstrual Period: 2 months ago - Social History Smoking Status: Current every day smoker How long have you smoked: 3 yrs Exposure to second hand smoke: Yes Drug Use: none - Social Determinants of Health Will the patient participate in the screening: Yes Do you worry about a steady place to live?: No In the past 12 months,have you had to go without utilities?: No Transportation Issues: No Has anyone in your support network made you feel unsafe?: No Have you or anyone in your house had to go w/o enough food: No - Nursing Vital Signs Nursing Vital Signs: Initial Vital Signs Pulse Rate 122 H 10/19/25 22:48 Respiratory Rate 17 07/18/25 22:48 Blood Pressure 114/81 07/18/25 22:48 O2 Sat by Pulse Oximetry 97 07/18/25 22:48 Pain Scale Pain Intensity 8 - Physical Exam General Appearance: no apparent distress Eye Exam: scleral icterus Neck Exam: normal inspection, non-tender, supple, full range of motion Respiratory Exam: normal breath sounds, lungs clear, airway intact, No respiratory distress Cardiovascular Exam: normal heart sounds, tachycardia, capillary refill <2 sec Gastrointestinal Exam: soft, tenderness (epigastric), guarding, rebound Back Exam: normal inspection, normal range of motion, No CVA tenderness, No vertebral tenderness Neurologic Exam: alert, oriented x 3, cooperative Skin Exam: jaundice SpO2 Interpretation: normal O2 Delivery: Room Air - Course Nursing assessment & vital signs reviewed: Yes Ordered Tests: Active Orders 24 hr Category Date Time Status IV Insertion STAT Care 07/18/25 23:07 Active Telemetry q4h Care 07/19/25 00:33 Active ABDOMEN AND PELVIS W CONTRAST [CT] Stat Exams 07/18/25 22:53 Completed CBC W DIFF Stat Lab 07/18/25 23:07 Completed CMP Stat Lab 07/18/25 23:07 Completed CULTURE,URINE Stat Lab 07/18/25 22:58 Received Direct Bilirubin Stat Lab 07/18/25 23:07 Completed ETHYL ALCOHOL Stat Lab 07/19/25 00:00 Completed HCG, Quantitative (Inhouse) Stat Lab 07/18/25 23:07 Completed LIPASE Stat Lab 07/18/25 23:07 Completed Lactic Acid Stat Lab 07/18/25 23:34 Completed Lactic Acid Stat Lab 07/19/25 01:38 Received PT INR [PROTIME WITH INR] Stat Lab 07/19/25 00:00 Completed UA W/RFX UR CULTURE Stat Lab 07/18/25 22:58 Completed Medication Summary Generic Name Dose Route Start Last Admin Trade Name Freq PRN Reason Stop Dose Admin Potassium Chloride 20 meq in 100 mls @ 50 mls/hr 07/19/25 00:45 07/19/25 00:43 Potassium Chloride 20 Meq In Water 100ml IV 07/19/25 04:44 50 mls/hr Q2H DANE Administration Discontinued Medications Generic Name Dose Route Start Last Admin Trade Name Freq PRN Reason Stop Dose Admin Hydromorphone HCl 1 mg 07/18/25 22:52 07/18/25 23:22 Hydromorphone 1 Mg/1ml Inj IV 07/18/25 22:53 1 mg STAT ONE Administration Hydromorphone HCl Confirm 07/18/25 23:20 Hydromorphone 1 Mg/1ml Inj Administered 07/18/25 23:21 Dose 1 mg .ROUTE .STK-MED ONE Hydromorphone HCl 1 mg 07/19/25 01:18 07/19/25 01:52 Hydromorphone 1 Mg/1ml Inj IV 07/19/25 01:19 1 mg STAT ONE Administration Hydromorphone HCl Confirm 07/19/25 01:49 Hydromorphone 1 Mg/1ml Inj Administered 07/19/25 01:50 Dose 1 mg .ROUTE .STK-MED ONE Sodium Chloride 1,000 mls @ 999 mls/hr 07/18/25 22:52 07/19/25 00:22 Sodium Chloride 0.9% 1000 Ml IV 07/18/25 23:52 Infused .Q1H1M STA Infusion Sodium Chloride Confirm 07/18/25 23:20 Sodium Chloride 0.9% 1000 Ml Administered 07/18/25 23:21 Dose 1,000 mls @ ud .ROUTE .STK-MED ONE Ceftriaxone Sodium 1 gm in 100 mls @ 200 mls/hr 07/18/25 23:52 07/19/25 00:33 Rocephin 1 Gm / 100 Ml Nacl IV 07/19/25 00:21 Infused STAT ONE Infusion Ceftriaxone Sodium Confirm 07/18/25 23:56 Rocephin 1 Gm / 100 Ml Nacl Administered 07/18/25 23:57 Dose 1 gm in 100 mls @ ud IV .STK-MED ONE Sodium Chloride 1,000 mls @ 999 mls/hr 07/19/25 00:32 07/19/25 00:37 Sodium Chloride 0.9% 1000 Ml IV 07/19/25 01:32 999 mls/hr .Q1H1M STA Administration Sodium Chloride Confirm 07/19/25 00:35 Sodium Chloride 0.9% 1000 Ml Administered 07/19/25 00:36 Dose 1,000 mls @ ud .ROUTE .STK-MED ONE Ondansetron HCl 4 mg 07/18/25 22:52 07/18/25 23:21 Ondansetron Hcl 4 Mg/2 Ml Vial IV 07/18/25 22:53 4 mg STAT ONE Administration Ondansetron HCl Confirm 07/18/25 23:19 Ondansetron Hcl 4 Mg/2 Ml Vial Administered 07/18/25 23:20 Dose 4 mg .ROUTE .STK-MED ONE Ondansetron HCl 4 mg 07/19/25 01:51 07/19/25 01:53 Ondansetron Hcl 4 Mg/2 Ml Vial IV 07/19/25 01:52 4 mg STAT ONE Administration Ondansetron HCl Confirm 07/19/25 01:51 Ondansetron Hcl 4 Mg/2 Ml Vial Administered 07/19/25 01:52 Dose 4 mg .ROUTE .[facility] ONE Lab/Rad Data: Laboratory Result Diagrams 07/18/25 23:07 07/18/25 23:07 Laboratory Results 07/19/25 07/19/25 07/18/25 Range/Units 00:00 00:00 23:34 WBC (3.98-10.04) x10^3/uL RBC (3.93-5.22) x10^6/uL Hgb (11.2-15.7) g/dL Hct (34.1-44.9) % MCV (79.4-94.8) fL MCH (25.6-32.2) pg MCHC (32.2-35.5) g/dL RDW (11.7-14.4) % Plt Count (182-369) x10^3/uL MPV (9.4-12.3) fL Gran % (34.0-71.1) % Immature Gran % (Auto) (0.001-0.429) % Nucleat RBC Rel Count (0.00-0.2) % Eos # (Auto) (0.04-0.36) x10^3/uL Immature Gran # (Auto) (0.001-0.031) x10^3u/L Absolute Lymphs (auto) (1.18-3.74) x10^3/uL Absolute Monos (auto) (0.24-0.86) x10^3/uL Absolute Nucleated RBC (0.00-0.012) x10^3u/L Lymphocytes % (19.3-51.7) % Monocytes % (4.7-12.5) % Eosinophils % (0.7-5.8) % Basophils % (0.1-1.2) % Absolute Granulocytes (1.56-6.13) x10^3/uL Basophils # (0.01-0.08) x10^3/uL PT 20.3 H (9.4-12.5) SECONDS INR 1.86 (0.8-3.0) Sodium (135-145) mmol/L Potassium (3.5-5.1) mmol/L Chloride (98-107) mmol/L Carbon Dioxide (22-30) mmol/L Anion Gap (5-15) MEQ/L BUN (7-17) mg/dL Creatinine (0.52-1.04) mg/dL Estimated GFR ML/MIN Glucose (74-106) mg/dL Lactic Acid 7.8 H (0.4-2.0) Calcium (8.4-10.2) mg/dL Total Bilirubin (0.2-1.3) mg/dL Direct Bilirubin (0.0-0.4) mg/dL AST (14-36) U/L ALT (0-35) U/L Alkaline Phosphatase (38-126) U/L Serum Total Protein (6.3-8.2) g/dL Albumin (3.5-5.0) g/dL Lipase (23-300) U/L Beta HCG, Quant mIU/ml Urine Color (Yellow) Urine Appearance (Clear) Urine pH (4.6-8.0) Ur Specific [place] (1.005-1.030) Urine Protein (Negative) Urine Glucose (UA) (Negative) mg/dL Urine Ketones (Negative) Urine Blood (Negative) Urine Nitrite (Negative) Urine Bilirubin (Negative) Urine Urobilinogen (0.2) mg/dL Ur Leukocyte Esterase (Negative) U Hyaline Cast (Auto) (0-2) /LPF Urine Microscopic RBC (0-5) /HPF Urine Microscopic WBC (0-5) /HPF Ur Epithelial Cells (None Seen) /HPF Urine Bacteria (None Seen) /HPF Urine Culture Reflexed (NO) Ethyl Alcohol 82 H (0-10) mg/dL Slides for Path Review 07/18/25 07/18/25 07/18/25 Range/Units 23:07 23:07 23:07 WBC (3.98-10.04) x10^3/uL RBC (3.93-5.22) x10^6/uL Hgb (11.2-15.7) g/dL Hct (34.1-44.9) % MCV (79.4-94.8) fL MCH (25.6-32.2) pg MCHC (32.2-35.5) g/dL RDW (11.7-14.4) % Plt Count (182-369) x10^3/uL MPV (9.4-12.3) fL Gran % (34.0-71.1) % Immature Gran % (Auto) (0.001-0.429) % Nucleat RBC Rel Count (0.00-0.2) % Eos # (Auto) (0.04-0.36) x10^3/uL Immature Gran # (Auto) (0.001-0.031) x10^3u/L Absolute Lymphs (auto) (1.18-3.74) x10^3/uL Absolute Monos (auto) (0.24-0.86) x10^3/uL Absolute Nucleated RBC (0.00-0.012) x10^3u/L Lymphocytes % (19.3-51.7) % Monocytes % (4.7-12.5) % Eosinophils % (0.7-5.8) % Basophils % (0.1-1.2) % Absolute Granulocytes (1.56-6.13) x10^3/uL Basophils # (0.01-0.08) x10^3/uL PT (9.4-12.5) SECONDS INR (0.8-3.0) Sodium 133 L (135-145) mmol/L Potassium 2.9 L* (3.5-5.1) mmol/L Chloride 96 L (98-107) mmol/L Carbon Dioxide 25 (22-30) mmol/L Anion Gap 14.9 (5-15) MEQ/L BUN 3 L (7-17) mg/dL Creatinine 0.44 L (0.52-1.04) mg/dL Estimated GFR 129.3 ML/MIN Glucose 107 H (74-106) mg/dL Lactic Acid (0.4-2.0) Calcium 7.4 L (8.4-10.2) mg/dL Total Bilirubin 10.10 H (0.2-1.3) mg/dL Direct Bilirubin 8.4 H (0.0-0.4) mg/dL AST 220 H (14-36) U/L ALT 32 (0-35) U/L Alkaline Phosphatase 275 H (38-126) U/L Serum Total Protein 6.6 (6.3-8.2) g/dL Albumin 2.8 L (3.5-5.0) g/dL Lipase 416 H (23-300) U/L Beta HCG, Quant < 2.39 mIU/ml Urine Color (Yellow) Urine Appearance (Clear) Urine pH (4.6-8.0) Ur Specific [place] (1.005-1.030) Urine Protein (Negative) Urine Glucose (UA) (Negative) mg/dL Urine Ketones (Negative) Urine Blood (Negative) Urine Nitrite (Negative) Urine Bilirubin (Negative) Urine Urobilinogen (0.2) mg/dL Ur Leukocyte Esterase (Negative) U Hyaline Cast (Auto) (0-2) /LPF Urine Microscopic RBC (0-5) /HPF Urine Microscopic WBC (0-5) /HPF Ur Epithelial Cells (None Seen) /HPF Urine Bacteria (None Seen) /HPF Urine Culture Reflexed (NO) Ethyl Alcohol (0-10) mg/dL Slides for Path Review 07/18/25 07/18/25 Range/Units 23:07 22:58 WBC 15.8 H (3.98-10.04) x10^3/uL RBC 3.54 L (3.93-5.22) x10^6/uL Hgb 10.3 L (11.2-15.7) g/dL Hct 30.8 L (34.1-44.9) % MCV 87.0 (79.4-94.8) fL MCH 29.1 (25.6-32.2) pg MCHC 33.4 (32.2-35.5) g/dL RDW 29.4 H (11.7-14.4) % Plt Count 397 H (182-369) x10^3/uL MPV 9.7 (9.4-12.3) fL Gran % 71.1 (34.0-71.1) % Immature Gran % (Auto) 0.8 H (0.001-0.429) % Nucleat RBC Rel Count 0.0 (0.00-0.2) % Eos # (Auto) 0.09 (0.04-0.36) x10^3/uL Immature Gran # (Auto) 0.13 H (0.001-0.031) x10^3u/L Absolute Lymphs (auto) 3.00 (1.18-3.74) x10^3/uL Absolute Monos (auto) 1.24 H (0.24-0.86) x10^3/uL Absolute Nucleated RBC 0.00 (0.00-0.012) x10^3u/L Lymphocytes % 19.0 L (19.3-51.7) % Monocytes % 7.8 (4.7-12.5) % Eosinophils % 0.6 L (0.7-5.8) % Basophils % 0.7 (0.1-1.2) % Absolute Granulocytes 11.26 H (1.56-6.13) x10^3/uL Basophils # 0.11 H (0.01-0.08) x10^3/uL PT (9.4-12.5) SECONDS INR (0.8-3.0) Sodium (135-145) mmol/L Potassium (3.5-5.1) mmol/L Chloride (98-107) mmol/L Carbon Dioxide (22-30) mmol/L Anion Gap (5-15) MEQ/L BUN (7-17) mg/dL Creatinine (0.52-1.04) mg/dL Estimated GFR ML/MIN Glucose (74-106) mg/dL Lactic Acid (0.4-2.0) Calcium (8.4-10.2) mg/dL Total Bilirubin (0.2-1.3) mg/dL Direct Bilirubin (0.0-0.4) mg/dL AST (14-36) U/L ALT (0-35) U/L Alkaline Phosphatase (38-126) U/L Serum Total Protein (6.3-8.2) g/dL Albumin (3.5-5.0) g/dL Lipase (23-300) U/L Beta HCG, Quant mIU/ml Urine Color Josephine A (Yellow) Urine Appearance Cloudy A (Clear) Urine pH 5.0 (4.6-8.0) Ur Specific [place] >=1.030 A (1.005-1.030) Urine Protein Trace A (Negative) Urine Glucose (UA) 100 A (Negative) mg/dL Urine Ketones Negative (Negative) Urine Blood Moderate A (Negative) Urine Nitrite Positive A (Negative) Urine Bilirubin Large A (Negative) Urine Urobilinogen 1.0 A (0.2) mg/dL Ur Leukocyte Esterase Small A (Negative) U Hyaline Cast (Auto) 11-20 (0-2) /LPF Urine Microscopic RBC 11-20 A (0-5) /HPF Urine Microscopic WBC 3-5 (0-5) /HPF Ur Epithelial Cells Many A (None Seen) /HPF Urine Bacteria Many A (None Seen) /HPF Urine Culture Reflexed YES (NO) Ethyl Alcohol (0-10) mg/dL Slides for Path Review YES - Progress Progress: pain not gone completely Progress Note: Given history and exam I have a low suspicion for AAA, SBO, appendicitis, mesenteric ischemia, nephrolithiasis, pyelonephritis, or diverticulitis. I have a moderate concern for pancreatitis, gastritis vs non-bleeding peptic ulcer, or hepatobiliary disease and thus will obtain labs and imaging. ED Workup: CBC, BMP, LFTs, Lipase, UA 2L NS bolus given in ED. No signs of severe pancreatitis on exam such as ecchymosis of periumbilical region or flanks, hypoxia, or tachypneia. UA shows blood, nitrites and LE, started on Ceftriaxone. Bilirubin elevated at 10.[address] A/P showing signs of pancreatitis. K 2.9, 40meq KCl given IV Discussed transfer to [facility] where her GI is located, spoke with Dr. Allen (hospitalist) who accepts at 0121. Will see patient in: hospital (full admit) Counseled pt/family regarding: lab results, diagnosis, need for follow-up, rad results Medical Desision Making - Discussion of managment Care discussed with:: hospitalist Reviewed:: Test results, Need for additional workup Agreed on:: Treatment plan, decision to admit Will see patient: in hospital - Diagnostic Testing Diagnostic test were ordered, analyzed, and reviewed by me: Yes Radiological Interpretation: Interpreted by me, Reviewed by me, Teleradiologist Report - Risk of complications The pt has a mod risk of morbidity or mortality based on: Need for prescription drug management The pt has a high risk of morbidity or mortality based on: Decision regarding hospitilization or escalation of hosp level of care - Departure Departure Disposition: Transfer ([facility]) Clinical Impression: Pancreatitis, Elevated lactic acid level, UTI (urinary tract infection), Tachycardia, Hypokalemia, Abdominal pain, Alcohol abuse, Total bilirubin, elevated, Scleral icterus, Leukocytosis, Alcoholic cirrhosis, Acute on chronic pancreatitis, Alcohol intoxication Condition: Stable Critical Care Time: No Referrals: DOCTOR,NO FAMILY [Primary Care Provider, UNKNOWN] - Follow up/PCP as directed Instructions: Pancreatitis - Discharge instructions
[2025-07-18 22:55] VITALS: TEMP 98.6
[2025-07-18 23:13] LABS: BASOPHIL % 0.7 % (0.1-1.2); Basophil (Absolute #) 0.11 x10^3/uL (0.01-0.08); Eosinophil (Absolute #) 0.09 x10^3/uL (0.04-0.36); Hematocrit 30.8 % (34.1-44.9); Hemoglobin 10.3 g/dL (11.2-15.7); IMMATURE GRAN # 0.13 x10^3u/L (0.001-0.031); IMMATURE GRAN % 0.8 % (0.001-0.429); Lymphocyte (Absolute #) 3.00 x10^3/uL (1.18-3.74); Mean Corpuscular Hemoglobin 29.1 pg (25.6-32.2); Mean Corpuscular Hgb Concent. 33.4 g/dL (32.2-35.5); Monocyte (Absolute #) 1.24 x10^3/uL (0.24-0.86); NUCLEATED RBC # 0.00 x10^3u/L (0.00-0.012); NUCLEATED RBC % 0.0 % (0.00-0.2); Platelet Count 397 x10^3/uL (182-369); Red Blood Count 3.54 x10^6/uL (3.93-5.22); White Blood Count 15.8 x10^3/uL (3.98-10.04)
[2025-07-18 23:17] LABS: Glucose, Urine 100 mg/dL (Negative); Protein,Urine Dip Trace (Negative)
[2025-07-18] MEDS ORDERED: Zofran 4 MG/2 ML VIAL ONE (23:19)
[2025-07-18] MEDS ORDERED: Hydromorphone 1 mg/ml Injection ONE (23:20)
[2025-07-18] MEDS: Zofran 4 MG/2 ML VIAL IV ONE (23:21)
[2025-07-18] MEDS: Hydromorphone 1 mg/ml Injection IV ONE (23:22)
[2025-07-18] MEDS ORDERED: ROCEPHIN 1 GM / 100 ML NaCl 1 GM/100 ML IVPB IV ONE (23:56)
[2025-07-19] MEDS: ROCEPHIN 1 GM / 100 ML NaCl 1 GM/100 ML IVPB IV ONE (00:03)
--- NOTE | 2025-07-19 00:04 | XRAY ---
CLINICAL HISTORY: abd pain COMPARISON: 06/02/2025 TECHNIQUE: Multiple contiguous axial images were obtained from the level of the diaphragm to the pubic symphysis. This study was acquired after the IV administration of iodinated contrast material, given the patient's indications for the examination. If IV contrast material had not been administered, the likelihood of detecting abnormalities relevant to the patient's condition would have been substantially decreased. Coronal and sagittal reformatted images were generated and reviewed to improve anatomic localization and optimize lesion detection. CT scan was performed according to ALARA (as low as reasonably achievable). FINDINGS: The visualized lung bases are clear. ABDOMEN/PELVIS: The liver is enlarged in size, measuring approximately 24 cm in the craniocaudal axis, and shows severely decreased attenuation. No enhancing focal liver lesions are seen. There is no intrahepatic or extrahepatic biliary ductal dilatation. Hepatic vasculature is patent. Status post cholecystectomy. Diffuse mild peripancreatic fat stranding. no evidence of pancreatic / peripancreatic collection. The spleen and adrenal glands are unremarkable. The kidneys are normal in size and attenuation. There is no hydronephrosis or perinephric fat stranding. No renal calculi or renal masses are identified. The ureters are normal in caliber, and no ureteral calculi are seen. The bladder is undistended. Submucosal fat deposition is seen in large bowel loops. No evidence of focal or diffuse bowel wall thickening or evidence of bowel obstruction is seen. No features of an inflamed appendix. No adenopathy or fluid collections are seen. The aorta is normal in caliber. Pelvic viscera are unremarkable. No aggressive-appearing osseous lesions are identified. A small fat-containing umbilical hernia is present. IMPRESSION: Diffusely mild peripancreatic fat stranding, suspicious for pancreatitis; suggest laboratory correlation. Hepatomegaly with diffuse hepatic steatosis, showing mild interval progression compared to prior study. Interval unchanged small fat-containing umbilical hernia. Electronically Signed by: Shabbir Muir MD. (07/19/2025 00:02:41 EDT)
[2025-07-19 00:26] LABS: Calcium 7.4 mg/dL (8.4-10.2); Carbon Dioxide 25.0 mmol/L (22-30); Creatinine 1 0.44 mg/dL (0.52-1.04); EST GLOMERULAR FILTRATION RATE 129.3 ML/MIN; Glucose 107.0 mg/dL (74-106); SGOT/AST 220.0 U/L (14-36); SGPT/ALT 32.0 U/L (0-35); Total Protein 6.6 g/dL (6.3-8.2)
[2025-07-19 00:30] LABS: Potassium 2.9 mmol/L (3.5-5.1)
[2025-07-19] MEDS ORDERED: POTASSIUM CHLORIDE 20 mEq IN WATER 100ML 100 ML IV ONE ×2 (00:35→02:36)
[2025-07-19] MEDS: POTASSIUM CHLORIDE 20 mEq IN WATER 100ML 20 MEQ/100 ML BAG IV SCH (00:43)
[2025-07-19 01:38] LABS: Slide Review 1 YES
[2025-07-19 01:38] LABS: INR 1.86 (0.8-3.0); PROTIME 20.3 SECONDS (9.4-12.5)
[2025-07-19] MEDS ORDERED: Hydromorphone 1 mg/ml Injection ONE (01:49)
[2025-07-19] MEDS ORDERED: Zofran 4 MG/2 ML VIAL ONE (01:51)
[2025-07-19] MEDS: Hydromorphone 1 mg/ml Injection IV ONE (01:52)
[2025-07-19] MEDS: Zofran 4 MG/2 ML VIAL IV ONE (01:53)
[2025-07-19 02:01] VITALS: BP 116/94; PULSE 133; RESP 24; O2SAT 99
== END 2025-07-19 02:50 | disposition short-term general hospital (02) ==
LOC: ED 22:21
DX: K86.1 Other chronic pancreatitis (principal); K85.90 Acute pancreatitis without necrosis or infection, unspecified; K70.30 Alcoholic cirrhosis of liver without ascites; F10.129 Alcohol abuse with intoxication, unspecified; Y90.4 Blood alcohol level of 80-99 mg/100 ml; R79.89 Other specified abnormal findings of blood chemistry; N39.0 Urinary tract infection, site not specified; R00.0 Tachycardia, unspecified; E87.6 Hypokalemia; R10.13 Epigastric pain; E80.6 Other disorders of bilirubin metabolism; D72.829 Elevated white blood cell count, unspecified; R11.2 Nausea with vomiting, unspecified; Z79.899 Other long term (current) drug therapy; Z72.0 Tobacco use